=== PATIENT | female | born 1955 | race Caucasian/White ===

== ENCOUNTER 2018-03-10 08:16 | Inpatient (IN) | payer OTHER, SELFPAY ==
--- NOTE | 2018-03-01 07:41 | PCM.HP.BLA ---
History and Physical DATE OF SURGERY: 03/10/2018 SCHEDULED PROCEDURE: Left reverse total shoulder arthroplasty HISTORY OF PRESENT ILLNESS: This is a 62-year-old female whose been having ongoing pain in the left shoulder. Patient had a previous left humerus fracture on March 10, 2017 in which she underwent a surgical fixation by Dr. Leobardo Johnson. Patient is having continued pain with motion of the left shoulder. She has difficult time with activities of daily living that require anything using her hand above her shoulder. She has difficult time with hygiene and showering. Patient has been through previous formal physical therapy for 5 months. There was no complications after the surgery. She denies any repeat trauma or injury. Patient has a medical history pertinent for type 2 diabetes mellitus, sleep apnea in which she requires a CPAP, thyroid disease, asthma, and depression. Patient currently denies any chest pain, shortness of breath, fevers chills, recent infections. After failure of conservative measures and discussion with Dr. Eduardo Sorto, the patient would like to proceed with a left reverse total shoulder arthroplasty. We are obtaining surgical clearance from her primary care physician. Patient is unable to have any Steri-Strips placed due to reaction. REVIEW OF SYSTEMS: ROS: Const: Reports difficulty sleeping, but denies anorexia, anxiety, change in appetite, fever, weight change. CV: Denies chest pain, heart murmur, irregular heartbeat and peripheral vascular disease. Resp: Reports sleep apnea, but denies asthma, cough, pneumonia, shortness of breath, tuberculosis and wheezing. GI: Denies constipation, diarrhea, heartburn, nausea, rectal itching, bloody stools and vomiting. : Denies incontinence. Musculo: Reports leg swelling, but denies pain, trouble walking and weakness. Skin: Reports history of shingles, but denies Raynaud's and tattoo. Neuro: Reports numbness/tingling but denies ambulatory dysfunction, dizziness and tremor. Psych: Reports depression and stress, but denies anxiety, insomnia and mental illness. Manuel/Lymph: Denies anemia, bleeding/bruising tendency and past transfusion. Reviewed, no changes. PAST MEDICAL HISTORY: Advance Care Plan: No Advance Directives Effective Date: 03/11/2017 PMH: Medical Problems: Asthma, Depression, Diabetes, Sleep Apnea, Thyroid Disease Accidents: Fracture - RT ELBOW Surgical Hx: Appendectomy - (1987) Gallbladder - (1988) Hysterectomy - (1987) Tonsillectomy - (1965) Hernia Repair, Ovarian Cyst, Gastric Bypass LT Shoulder ORIF - (03/13/2017) [email or web address] Anesthesia Complications: None Assistive Devices: Glasses, Dentures, Contacts, Hearing Aid Reviewed, no changes. 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 Personal Habits: Cigarette Use: Never.Alcohol: Occasionally.Drug Use: Denies Use.Enjoy Exercising: Never Exercises. Reviewed, no changes. VITALS: Ht: 65 Wt: 310lb Wt k.616 BMI: 51.6 BP: 140/90 Pulse: 100 Resp: 16 T: 98.4 T: 36.9C ALLERGIES: Tetanus - Swelling In Joints Codeine - Breathing Problems Sulfa - Hives Tape/Steri Strips - Tape/Steri Strips MEDICATIONS: Fluoxetine HCL 20 mg one PO daily, Metformin HCL 500 mg 1 by mouth twice a day, Levothyroxine Sodium 125 mcg one PO daily, Glimepiride 2 mg 1 by mouth every day, Vitamin E 400 Unit 1 by mouth every day, Vitamin D 75107 Unit once a day PRE-OP EXAM: General appearance:NORMAL Other: Eyes: Conjunctivae and lids: NORMAL Pupils: ERR Ears, Nose, Mouth, and Throat: NORMAL Other: Inspection of lips, teeth and gums: NORMAL Other: Neck: Examination of neck: no masses noted. Respiratory: Assessment of respiratory effort: NORMAL Other: Auscultation of lungs: clear to auscultation no wheezes, rhonchi or rales. Cardiovascular: Auscultation of heart: regular rate and rhythm, no murmurs, gallops or rubs. Exam of carotid arteries: NORMAL Other: Gastrointestinal: Exam of abdomen: soft, nontender, nondistended bowel sounds present. PHYSICAL EXAMINATION: Left shoulder is cool to touch without erythema. Incision is well healed without any signs of infection. Range of motion left shoulder: Forward flexion 90, passive flexion 150, internal rotation L1 on the left and T10 on the right. 4/5 strength left shoulder. Sensation intact to light touch. Neurovascularly intact. IMAGING STUDIES: X-rays were obtained of the left shoulder which does reveal a well-healed humeral neck fracture with previous open reduction internal fixation. On scapular Y view the greater tuberosity is rotated posteriorly for a nonunion or malunion. These were compared to initial radiographs where the greater tuberosity was in appropriate position and a sense either resorbed or shifted. IMPRESSION: 1. Painful left shoulder with previous open reduction internal fixation 2. Type 2 diabetes mellitus 3. Depression 4. Sleep apnea with requirement for CPAP 5. Thyroid disease 6. Asthma PLAN: Dr. Eduardo Sorto did discuss and review with the patient all treatment options including surgical versus nonsurgical options. Patient does wish to proceed with the above-stated procedure. Potential risks, benefits, and complications of the procedure were discussed in detail including but not limited to , infection, nerve and blood vessel damage, persistent pain, numbness, tingling, paresthesias, blood clot, pulmonary embolism, and requirement for possible further surgery. The patient expressed full understanding and has no further questions for the doctor. Patient does agree to proceed with the above-stated procedure and has signed the surgery consent form. This dictation was created using voice recognition software. Phonetic and/or grammatical errors may exist.. ___ I have re-examined the patient. There are no clinical changes since date of exam. ___ See progress notes for changes. ___ Dictated on admission Date: Time: Signature:
[2018-03-02 14:23] VITALS: BP 151/83; PULSE 69; RESP 16; TEMP 36.1; O2SAT 95; BMI 53.1
--- NOTE | 2018-03-02 14:33 | SDCEKG_ITS ---
Test Reason : Blood Pressure : / mmHG Vent. Rate : 066 BPM Atrial Rate : 066 BPM P-R Int : 158 ms QRS Dur : 076 ms QT Int : 444 ms P-R-T Axes : 004 -01 096 degrees QTc Int : 465 ms Normal sinus rhythm Minimal voltage criteria for LVH, may be normal variant Poor R wave progression Nonspecific T wave abnormality Prolonged QT Abnormal ECG Confirmed by DERIC BOOKER, RYLEY ([id number]), order editor LENIN SANCHEZ ([id number]) on 03/04/2018 3:44:21 PM Referred By: Eduardo Sorto Confirmed By:RYLEY LEOS MD
[2018-03-02 15:10] LABS: Absolute Lymphocyte Count 2.78 X10^3/ul (0.83-4.51); Absolute Neutrophil Count 5.8 X10^3/uL (2.0-7.7); Basophil# 0.02 X10^3/uL; Basophil% 0.2 % (0-1); Eosinophil# 0.19 X10^3/uL; Hematocrit 41.3 % (37-47); Hemoglobin 14.1 g/dl (12.0-15.0); Lymphocyte # 2.78 X10^3/ul (4.0); Lymphocyte % 29.5 % (19-41); Mean Corp Hgb Conc 34.1 g/gl (32-36); Mean Corpuscular Hgb 32.4 pg (27.0-32.0); Mean Corpuscular Volume 94.9 fL (81-99); Mean Platelet Vol. 9.1 fl (6.2-12.0); Monocyte# 0.58 X10^3/uL; Monocyte% 6.2 % (0-10); Neutrophil # 5.83 X10^3/uL (2.7-7.7); Neutrophil % 61.9 % (47-70); Platelet Count 251 K/mm3 (150-450); RBC Distribution Width CV 13.6 % (11.6-14.6); RBC Distribution Width SD 45.2 fl (35.1-43.9); Red Blood Count 4.35 M/mm3 (4.2-5.4); White Blood Count 9.4 K/mm3 (4.4-11.0)
[2018-03-02 15:13] LABS: International Normalized Ratio 1.2; Partial Thromboplast Time 30.2 Seconds (24.1-36.2); Prothrombin Time (Protime)PT. 14.7 SECONDS (11.7-14.9)
[2018-03-02 15:14] LABS: POSITIVE COUNT NO; POSITIVE DIFFERENTIAL NO; POSITIVE MORPHOLOGY NO
[2018-03-02 15:38] LABS: AST(SGOT) 71 U/L (15-37); Alanine Aminotransfer ALT/SGPT 54 U/L (13-56); Albumin, Serum 3.4 g/dL (3.2-5.0); Alkaline Phosphatase 117 U/L (45-117); Anion Gap 8 (5-15); BUN 13 mg/dL (7-18); BUN/Creat Ratio 13.4 RATIO (10-20); Bilirubin, Direct 0.29 mg/dL (0.00-0.30); Calcium,Total 8.8 mg/dL (8.5-10.1); Chloride 102 mmol/L (98-107); Creatinine, Serum 0.97 mg/dL (0.55-1.02); EST Glomerular Filtration Rate 62 mL/min (>60); Est Glom Filt Rate - Afr Amer 75 mL/min (>60); Estimated Creatinine Clearance 53.26 ml/min; Globulin 4.2 g/dL (2.2-4.2); Glucose 88 mg/dL (74-106); Potassium 3.8 mmol/L (3.5-5.1); Protein, Total 7.6 g/dL (6.4-8.2); Sodium Level 138 mmol/L (136-145); Thyroid Stim Hormone (TSH) 2.49 uIU/mL (0.358-3.74)
[2018-03-10] VITALS (17 sets, daily range): BP systolic 91–146; BP diastolic 51–84; PULSE 64–113; RESP 14–18; TEMP 36.3–37.4; O2SAT 93–99; BMI 53.1
--- NOTE | 2018-03-10 | SHO_PTH ---
PATIENT: SHAUNA RANDALL LOC: [facility] U#:[id number] AGE/SX: 62/F ROOM: [facility] RE03/10/[address]: Dr. Bimal See DO : 1955 BED: 1 DIS: 03/12/2018 SPEC #: [id number] RECD: 03/10/18 15:43 STATUS: BAKARI RETimo #: [id number] WESTLEY: 03/10/18 00:[address]: Eduardo Sorto DEPT: SURGICAL PATHOLOGY RECD BY: Dalton Gavin ENTERED: 03/11/18 08:38 SP TYPE: HUMERUS OTHR DR: MD Dr. Bimal Rojas DO Dr. Kathleen Fearon, DO Dr. Steven Widmer, MD Tissues: Humerus, NOS Procedures: Decalcification bone/plaque Surgery Specimen Level IV Comments: @ Ordering doctor for DEC edited from to @ hussain VIDALES at 03/11/18 1450 @ Ordering doctor for SUIV edited from to @ by SOBEIDA at 03/11/18 145 @ Submitting doctor edited from to @ hussain VIDALES at 03/11/18 1457 HEADER OPERATION: Reverse total shoulder replacement, removal of hardware PRE-OP DIAGNOSIS: Painful left shoulder with previous open reduction internal fixation TISSUE SUBMITTED: Left humeral head MICROSCOPIC DIAGNOSIS Left humeral head, total shoulder replacement: Humeral head with reactive changes and focal area of hemorrhage, clinically history of previous open reduction and internal fixation. CHRIS:abundio 03/17/18 MICROSCOPIC DESCRIPTION Slides are reviewed. GROSS DESCRIPTION Received is one container labeled with the patient's name and designated left humeral head. The specimen consists of a humeral head measuring 5 x 4.5 x 2.5 cm. No soft tissue is identified. The articular surface shows area of erosion and osteophyte formation. Used Equipment Sales Representative sections are submitted in one cassette after decalcification. / Amadou 03/11/18 TC: 5 CPT: 44522, 86478
--- NOTE | 2018-03-10 07:20 | RAD_ITS ---
STUDY: X-RAY - LEFT SHOULDER REASON FOR EXAM: Female, 62 years old. Total arthroplasty TECHNIQUE: Single postop view of the shoulder. COMPARISON: None. FINDINGS: Total left shoulder arthroplasty appears in anatomic alignment on the single submitted image. There is hypertrophic osteoarthrosis of the acromioclavicular joint with inferior osseous spur formation. Normal acromion. There is no demonstrated pneumothorax. Postsurgical changes. RAD/Shoulder One View IMPRESSION: Total arthroplasty appears in anatomic alignment. Degenerative changes of the acromioclavicular joint. Electronically Signed: Felecia Cardona MD at 1:21 EST , Service support ,
[2018-03-10] MEDS: oxyCODONE HCl Cr 10 MG Tablet PO (08:46)
[2018-03-10] MEDS: Acetaminophen 500 MG Tablet 1000 MG PO ×2 (08:47→21:36)
[2018-03-10 09:10] LABS: Bedside Glucose 150 mg/dL (70-110)
[2018-03-10] MEDS: Lactated Ringers 1,000 ML 999 ML IV (09:12)
[2018-03-10] MEDS: Ropivacaine 0.5% 30 ML Vial (14:08)
[2018-03-10] MEDS: Ketorolac 30 MG/ML Syringe (14:08)
--- NOTE | 2018-03-10 14:20 | OP.PCM_ITS ---
Report of Operation Date of Procedure: 03/10/18 Pre-Operative Diagnosis: Post traumatic arthritis, cuff tear arthropathy left shoulder Post-Operative Diagnosis: Post traumatic arthritis, cuff tear arthropathy left shoulder. Left shoulder proximal humerus malunion Surgery/Procedure Performed:: Left reverse total shoulder replacement Description of Surgical Findings:: Stable shoulder good soft tissue tensioning animal technician: Marco A Saleh Type of Anesthesia:: General Anesthesiologist: Bimal Sosa Special Medications: 3 g Ancef, 1 g TXA at incision, 1 g TXA closure, 10 mg Decadron, joint cocktail (5 mg Duramorph, 30 mL of 0.5% Ropivicaine, 1000 units of epinephrine, 30 mg of Toradol), 1 g vancomycin throughout the case Specimen's removed: Bony cuts Estimated Blood Loss (mL): 200 ML Fluids Replaced: 2000 mL crystalloid Description of Procedure: Components used 1. Jose reunion glenoid baseplate with 28 mm screw 2. Jose reunion 32 mm Glenosphere 3. [place] reunion 32 mm, 4 mm humeral liner 4. [place] reunion reverse TSA humeral adapter tray 32, +4 mm mm 5. Jose reunion humeral stem primary press-fit 9mm size Brief history/Operative indications: 62 yo F with history of R shoulder pain and proximal humerus fracture and surgical fixation. Patient failed conservative measures as mentioned in the H&P. After discussion of risk and benefits of reverse total shoulder replacement including but not limited to blood loss, DVTs, PEs, nerve vessel damage, infection, general risk of anesthesia including loss of life, instability and stiffness patient demonstrating understanding wish to proceed was able to sign informed consent. Medical clearance was obtained. Procedure: On the date of the procedure, patient's L upper extremity was marked in the preoperative area. Patient was taken back to the operating room where they were placed on the table in the supine position. Anesthesia assumed control of the C-spine and airway, then administered anesthetic. All bony prominences were identified well-padded, the head was secured and the patient was placed in the beachchair position at about 35? inclination. Anesthesia remained in control of the C-spine airway throughout the remainder of the procedure. Patient was then appropriately fastened to the table and the L upper extremity was prepped in a sterile fashion. The surgeons then scrubbed. Upon reentering the room, the L upper extremity was draped in a sterile fashion and the incision was marked out. Timeout was called, everyone agreed upon the side, the site, the procedure to be performed, patient identity and antibiotics given. Incision was taken down through skin and subcutaneous tissue, fat down to fascia. The stripe of the deltopectoral interval and cephalic vein were identified and blunt dissection was used to retract the deltoid. The cephalic vein was retracted laterally. Clavipectoral fascia was then incised and a cobra retractor was placed in the wound. The proximal one third of the pectoralis major insertion was released. At this time we internally rotated the shoulder and were able to identify the proximal humerus plate. In order to get to this area we had to make significant scar tissue releases which took extra time. Once the plate was identified the membrane was removed from the base of the plate. The distal screws were removed using a hex head screwdriver. The proximal screws were removed using a Star Drive. Once all the screws were removed a Carrington was placed under the plate. The plate was then removed. Proximally we found the biceps tendon and followed followed the biceps tendon after transecting it into the rotator interval. The rotator interval was split and the arm was externally rotated. Based on the previous fracture and excessive scar tissue external rotation was quite difficult. Significant amount of time was spent doing appropriate releases to externally rotate the proximal humerus. The split of the subscapularis was 1 cm medial to the bicipital groove. Subscapularis tendon was released. We released down the anterior portion of the humeral head and a garcia elevator was used to release the inferior portion of the humeral head. As we gently externally rotated the arm we were able to appreciate the amount of retroversion and malunion of the fracture. There was roughly 70 degrees retroversion on the humeral head. Due to this and the excessive scar tissue we spent extra time doing these releases carefully to avoid neurovascular damage. The arm was externally rotated and the shoulder was dislocated. The [employer] humeral head cutting guide was used to make humeral cut. This was done at 20? retroversion in relation to the forearm. Once his humeral head cut was made humerus was retracted out of the way and the glenoid was exposed. After exposing the glenoid, the labrum and the remaining proximal biceps were debrided. At this time we are able to view the entire outer edge of the glenoid. A central pin was placed using the 10 degree inferior tilt guide we sequentially reamed over this central pin to 32mm. Once this was completed the central screw was measured off our initial pin. The glenoid baseplate was tightened into place. Wound was closely irrigated out with normal saline we then drilled sequentially for 2 screws. Screws were placed superiorly and inferiorly and tightened down the screws. Once the screws were appropriately tightened into place the glenoid baseplate was compressed against the exposed subchondral bone. A 32 mm, +2 mm glenosphere was impacted into place engaging the Reeder taper. Attention was then turned towards the humerus. The humerus was again externally rotated exposing the proximal portion of the humerus. Central canal finder was then used to open up the canal. We reamed to a 10mm reamer. We then broached t o a 9mm stem. We trialed the +4 mm liner, with the +4 mm humeral baseplate. We obtained an adequate reduction at this time with a nice stable shoulder. Good internal rotation to the gluteus, forward elevation to 140?, external rotation to 20?. Final components were then assembled on the back table, trials were removed and the wound was copiously irrigated with normal saline after dislocating the shoulder. Once the final components were assembled they were impacted into place. Shoulder was then reduced and found to be stable with good range of motion. Subscapularis tendon was not repairable. The wound was then copiously irrigated out with a 1 L normal saline lavage. The deltopectoral fascia was then closed using #1 Vicryl skin was closed using 2-0 Vicryl interrupted sutures and final skin closure was done with 3-0 Monocryl. Due to patient's previous reaction to Steri-Strip adhesive Dermabond was used for final skin closure. Sterile dressing was placed patient was then placed in a sling and awakened by anesthesia. Patient was then transferred to the PACU for recovery. Postoperative plan: Patient will be admitted to the hospital overnight. They will get physical therapy starting in 2 weeks with normal postoperative regimen. Patient will be placed on aspirin daily for DVT prophylaxis. The first postoperative appointment will be in 2 weeks for wound check and initiation of phase 1 physical therapy. During the course of the procedure the physician legal administrative assistant played a vital role. His intimate knowledge of my steps in the procedure aided in safe and expedient completion of the procedure. The PA played a vital rolls in positioning particularly in obtaining the appropriate beach chair position and securing the patient's body and head to the table. The PA was also vital in the retraction of soft tissues during the exposure and especially the glenoid work as this is a vital part of the procedure to prevent neurovascular damage. the PA was also vital and protecting soft tissues during times of bony cuts and reaming. He also played a vital role in closure with my direct supervision. The PA was also important during reduction and dislocation of the joint and trials intraoperatively. Grafts/Implants Used: [place] reunion reverse total shoulder replacement - Complications None - Admit VTE Documentation VTE Present on Admission: No VTE Mechan Device Prophylaxis: SCD's, Thigh High ESTER Hose VTE Pharm Prophylaxis ordered?: Yes
--- NOTE | 2018-03-10 14:59 | EKG12_ITS ---
Test Reason : ST DEPRESSION Blood Pressure : / mmHG Vent. Rate : 107 BPM Atrial Rate : 107 BPM P-R Int : 166 ms QRS Dur : 074 ms QT Int : 374 ms P-R-T Axes : 020 002 083 degrees QTc Int : [address] & T wave abnormality, consider lateral ischemia Abnormal ECG When compared with ECG of 02-MAR-2018 13:30, Vent. rate has increased BY 41 BPM Confirmed by AREN MENDEZ ([id number]), food expeditor LENIN SANCHEZ ([id number]) on 03/15/2018 2:36:29 PM Referred By: Eduardo Sorto Confirmed By:AREN MENDEZ
[2018-03-10 15:51] LABS: Bedside Glucose 183 mg/dL (70-110)
--- NOTE | 2018-03-10 17:06 | ECHOCS_ITS ---
Reason For Study: Chest pain Procedure This was a 2D Doppler, Color Flow transthoracic echocardiogram. PT SCANNED SUPINE DUE TO RECENT LT. SHOULDER SURGERY. Exam performed portable in patient room. Left Ventricle Normal size and thickness. The estimated ejection fraction is 65 %. Stage 2 diastolic dysfunction. No regional wall motion abnormalities noted. Right Ventricle Normal right ventricle. Normal systolic function. Atria Normal left atrium. Normal right atrium. Normal atrial septum. Mitral Valve The mitral valve is structurally normal. No prolapse or stenosis seen. Tricuspid Valve Normal tricuspid valve. Trivial tricuspid valve insufficiency. Right ventricular systolic pressure estimated to be 36 mmHg. Aortic Valve Normal aortic valve. Trisinus/trileaflet aortic valve. Pulmonic Valve The pulmonic valve is not well visualized. Great Vessels Normal aortic root. Normal arch. Normal inferior vena cava. Inferior vena cava collapse with sniff. Pericardium/Pleural No pericardial effusion. Medication Diluted definity 3ml given slow IV push to enhance endocardial definition. MMode/2D Measurements & Calculations LVIDd: 4.8 cm IVSd: 1.1 cm Ao root diam: 3.4 cm LVIDs: 2.9 cm LVPWd: 1.0 cm FS: 38.6 % LA dimension(2D): 3.8 cm Doppler Measurements & Calculations MV E max jostin: 117.8 cm/sec Lat Peak E' Jostin: 13.1 cm/sec Med Peak E' Jostin: 8.1 cm/sec MV A max jostin: 108.0 cm/sec E/E' lat: 9.0 E/E' med: 14.5 MV E/A: 1.1 Ao V2 max: 192.2 cm/sec LV V1 max: 138.0 cm/sec PA V2 max: 107.6 cm/sec Ao max P.8 mmHg LV V1 max P.6 mmHg TR max jostin: 278.0 cm/sec TR max P.9 mmHg Interpretation Summary The estimated ejection fraction is 65 %. Stage 2 diastolic dysfunction. Trivial tricuspid valve insufficiency. Right ventricular systolic pressure estimated to be 36 mmHg. The study was technically limited. The study was technically difficult. There is no comparison study available. Contrast injection was performed. Ordering Physician: Genesis Hicks Referring Physician: Eduardo Sorto Performed By: Isabel Sheridan RDCS
--- NOTE | 2018-03-10 17:56 | PCM.PROGNOTE ---
Subjective: Pt is a 62 year old female who denies cardiac hx, who has a hx of hypothyroidism, DMt2, depression, morbid obesity, sleep apnea, who today underwent left reverse total shoulder repair with Dr. Sorto. She had some EKG changes post op with possible ST depression and T wave changes compared to her pre-surgical EKG. A troponin was drawn was indeterminate. Cardiology was consulted. She was sent to PCU and placed on telemetry for overnight monitoring. She has never had a stress test. She is resting comfortably upright in bed NAD. She denies CP, tightness, heaviness, pressure, palpitations, SOB, nausea, back pain. She has some lightheadedness. She is mildly tachycardic in Sinus rhythm. Her mother had a hx of heart failure and TIAs, father had hx of lupus and dementia. - Physical Exam General: Alert, Oriented x3, Cooperative HEENT: Atraumatic, PERRLA, EOMI, Normocephalic Neck: Supple, No JVD, Negative Carotid Bruits Lungs: Clear to auscultation, Normal air movement Cardiovascular: Regular rate, No murmurs Abdomen: Bowel Sounds Present, Soft, Non Tender Extremities: No edema, Capillary Refill Less than 3 Seconds Skin: No rashes, No breakdown Musculoskeletal: No Tenderness to Palpation of Joints or Extremities Neurological: Cranial nerves II-XII grossly intact Psych/Mental Status: Normal Affect, Appropriate, Alert and oriented to time, place, person, mood and affect Vital Signs Temp Pulse Resp BP Pulse Ox 98.8 F 113 H 18 108/57 L 95 03/10/18 17:16 03/10/18 17:36 03/10/18 17:16 03/10/18 17:16 03/10/18 17:16 Oxygen Flow Rate (L/min) 2 Oxygen Delivery Method Room Air Weight: 309 lb 8.464 oz Body Mass Index (BMI) 53.1 Finger Stick Blood Glucose 183 Intake and Output for Last 24 Hours 03/08/18 03/09/18 03/10/18 23:59 23:59 23:59 Intake Total 1999 Balance 1999 Laboratory Tests Past 24 Hrs 03/10/18 15:21 Troponin I 0.054 H POC Glucose 03/10/18 03/10/18 15:44 08:35 POC Glucose 183 H 150 H Medical Necessity - Tobacco Use Smoking Status: Never smoker Assessment/Plan 1. EKG changes post op with indeterminate troponin - cardiology following. Asymptomatic. Repeat EKG in AM. Cycle enzymes overnight. Obtain 2d echo. Check Mag. TSH normal. Baby aspirin started. DC toradol and mobic for now. 2. Left total shoulder POD#0 - pain controlled. Care per ortho. Perioperative Vanc and Cefazolin. Nasal MRSA screen negative. Received tranexamic acid. 3. DMt2 with morbid obesity - hold metformin. Sliding scale insulin. A1C 7.0. 4. Hypothyroidism - continue synthroid - tsh normal 5. LUIS - cpap qhs DVT ppx: per ortho Thank you for the opportunity to participate in the care of this patient. This patient was seen by Walter Pillai PA-C under the supervision of Doctor Fabiola.
[2018-03-10] MEDS: Cefazolin 1 GM/50 ML BAG IV (21:32)
[2018-03-10 21:40] LABS: Bedside Glucose 164 mg/dL (70-110)
[2018-03-10] MEDS: Insulin Lispro 100 UNIT/ML INSULN.PEN SC (21:48)
[2018-03-11] VITALS (12 sets, daily range): BP systolic 112–139; BP diastolic 59–76; PULSE 82–99; RESP 14–16; TEMP 37.1–37.5; O2SAT 93–97
[2018-03-11] MEDS: Lactated Ringers 1,000 ML 125 ML IV ×2 (01:00→08:54)
[2018-03-11] MEDS: Acetaminophen 500 MG Tablet 1000 MG PO ×3 (05:44→21:03)
[2018-03-11] MEDS: Cefazolin 1 GM/50 ML BAG IV (05:44)
[2018-03-11] MEDS: Levothyroxine 112 MCG Tablet PO (05:48)
--- NOTE | 2018-03-11 05:55 | EKG12_ITS ---
Test Reason : AM Blood Pressure : / mmHG Vent. Rate : 095 BPM Atrial Rate : 095 BPM P-R Int : 180 ms QRS Dur : 070 ms QT Int : 372 ms P-R-T Axes : 048 022 088 degrees QTc Int : 467 ms Normal sinus rhythm Low voltage QRS Borderline ECG When compared with ECG of 10-MAR-2018 15:03, MANUAL COMPARISON REQUIRED, DATA IS UNCONFIRMED Confirmed by AREN MENDEZ ([id number]), writer editor LENIN SANCHEZ ([id number]) on 03/15/2018 2:57:49 PM Referred By: Eduardo Sorto Confirmed By:AREN MENDEZ
[2018-03-11 06:12] LABS: Absolute Lymphocyte Count 1.14 X10^3/ul (0.83-4.51); Absolute Neutrophil Count 8.8 X10^3/uL (2.0-7.7); Basophil# 0.01 X10^3/uL; Basophil% 0.1 % (0-1); Eosinophil# 0.15 X10^3/uL; Eosinophils% 1.4 % (0-5); Hematocrit 35.4 % (37-47); Hemoglobin 11.6 g/dl (12.0-15.0); Lymphocyte # 1.14 X10^3/ul (4.0); Lymphocyte % 10.5 % (19-41); Mean Corp Hgb Conc 32.8 g/gl (32-36); Mean Corpuscular Hgb 32.5 pg (27.0-32.0); Mean Corpuscular Volume 99.2 fL (81-99); Mean Platelet Vol. 9.5 fl (6.2-12.0); Monocyte# 0.71 X10^3/uL; Monocyte% 6.6 % (0-10); Neutrophil # 8.78 X10^3/uL (2.7-7.7); Neutrophil % 81.2 % (47-70); Platelet Count 188 K/mm3 (150-450); RBC Distribution Width SD 48.9 fl (35.1-43.9); Red Blood Count 3.57 M/mm3 (4.2-5.4); White Blood Count 10.8 K/mm3 (4.4-11.0)
[2018-03-11 06:23] LABS: Anion Gap 10 (5-15); BUN 15 mg/dL (7-18); BUN/Creat Ratio 14.9 RATIO (10-20); Calcium,Total 7.9 mg/dL (8.5-10.1); Chloride 106 mmol/L (98-107); Cholesterol 178 mg/dL (200); Creatinine, Serum 1.01 mg/dL (0.55-1.02); EST Glomerular Filtration Rate 59 mL/min (>60); Est Glom Filt Rate - Afr Amer 72 mL/min (>60); Estimated Creatinine Clearance 51.15 ml/min; Glucose 122 mg/dL (74-106); High Density Lipoprotein 27 mg/dL; Potassium 4.4 mmol/L (3.5-5.1); Sodium Level 141 mmol/L (136-145); Triglycerides 103 mg/dL; Very Low Density Lipoprotein 21 mg/dL (5-40)
[2018-03-11 06:33] LABS: POSITIVE COUNT NO; POSITIVE DIFFERENTIAL NO; POSITIVE MORPHOLOGY NO
[2018-03-11 07:46] LABS: Bedside Glucose 148 mg/dL (70-110)
[2018-03-11] MEDS: Glucerna Shake 120 ML LIQUID PO (08:52)
[2018-03-11] MEDS: Vitamin E 400 UNITS Capsule PO (08:52)
[2018-03-11] MEDS: Aspirin 325 MG Tablet PO (08:52)
[2018-03-11] MEDS: Famotidine 20 MG Tablet PO (08:52)
[2018-03-11] MEDS: FLUoxetine 20 MG Capsule PO (08:53)
--- NOTE | 2018-03-11 08:54 | CON.PCM_ITS ---
Problem List (1) Abnormal EKG Status: Acute (2) Troponin I above reference range Status: Acute Reason for Consult Date of Consultation: 03/11/18 Reason for Consultation: Abnormal EKG, indeterminate troponins History of Present Illness: The patient is a 62 year old F, morbidly obese, diabetic on oral medications, nonhypertensive, unknown cholesterol, no previous known coronary or cardi ovascular disease. Patient is a lifelong non-smoker. Apparently 1 year ago she suffered a fall fracturing her left shoulder area requiring surgery with plates and pins for corrective measures. However this did not allow her mobility of her arm, and the patient underwent a total left shoulder replacement surgery yesterday. Postoperatively I was called by anesthesia as they noted some ST segment depression on security monitor which was confirmed on EKG. Her EKG showed normal sinus rhythm with lateral ST segment depression which was previously seen on older EKGs although may have been a little more distinct. Patient was asymptomatic and normotensive at the time and when she awoke she had no complaints of chest pain. Her initial troponin was 0.05, then increase to 0.36, and now decreased to 0.28. Her EKG this morning shows normal sinus rhythm with previously documented lateral ST segment depression and T wave inversion. No ST elevation, no additional changes. On further history the patient denies any recent chest pain, angina, shortness of breath, dyspnea on exertion, change in exercise capacity or previous cardiac history. She does have a mother who had congestive heart failure diagnosed in her 50s and is subsequently . No other relatives with cardiovascular disease. Patient is currently resting comfortably, no acute distress.] Past Medical History Allergies/Adverse Reactions: Allergies adhesive tape Allergy (Verified 03/02/18 14:11) BLISTERS/SCARS codeine Allergy (Verified 03/02/18 14:11) Shortness of breath Sulfa (Sulfonamide Antibiotics) Allergy (Verified 03/02/18 14:11) Rash Tetanus Vaccines and Toxoid [Tetanus Vaccines & Toxoid] Allergy (Verified 03/02/18 14:11) Swelling meperidine HCl [From Demerol] Adverse Reaction (Verified 03/02/18 14:11) Itching STERISTRIPS Allergy (Uncoded 03/02/18 14:11) BLISTERS/SCARS Home Medications: Ambulatory Orders Medication Instructions Recorded Cholecalciferol (VIT D3) [Vitamin 10,000 unit PO DAILY 06/05/14 D3] Fluoxetine [Prozac] 20 mg PO DAILY 06/05/14 Glimepiride [Amaryl] 2 mg PO BID 06/05/14 Levothyroxine [Synthroid] 112 mcg PO DAILY 06/05/14 Metformin HCl [Glucophage] 500 mg PO DAILY 06/05/14 Vitamin E 400 unit PO DAILY 03/02/18 Smoking Status: Never smoker Review of Systems - Review of Systems General: Denies: Fever, Night Sweats, Fatigue Cardiovascular: Denies: Chest Discomfort, Shortness of Breath, Orthopnea, PND, Peripheral Edema, Palpitations, Lightheadedness, Dizziness, Near Syncope, Syncope Respiratory: Denies: Cough, Sputum Production, Hemoptysis Gastrointestinal: Denies: Hematemesis, Hematochezia, Melena Genitourinary: Denies: Dysuria, Hematuria Skin: Denies: Rash Subjectve: Patient resting comfortably, no acute distress. Shoulder harness in place. Objective: Vital Signs Temp Pulse Resp BP Pulse Ox 98.9 F 86 16 112/59 L 97 03/11/18 08:24 03/11/18 08:24 03/11/18 08:24 03/11/18 03:15 03/11/18 03:15 Oxygen Flow Rate (L/min) 2 Oxygen Delivery Method Room Air Weight: 309 lb 8.464 oz Body Mass Index (BMI) 53.1 Finger Stick Blood Glucose 183 Intake and Output for Last 24 Hours 03/09/18 03/10/18 03/11/18 23:59 23:59 23:59 Intake Total 3491 / 3491 667 / 667 Balance 3491 / 3491 667 / 667 General: Awake, Alert, Oriented x 3 HEENT: PERRL, EOMI, Sclera Non Icteric Neck: Supple, Good ROM, No Lymph Node Enlargement Lungs: Clear to auscultation Cardiovascular: Regular Rhythm, Normal S1, Normal S2, No Murmurs, No Rubs, No Gallops Vascular: No Carotid Bruits, Normal Femoral Pulses, Normal Radial Pulses, Normal Dorsalis Pedal Pulse, Normal Posterior Tibial Pulses Abdomen: Bowel Sounds Present, Soft, Non Tender, No HSM, No Organomegaly Extremities: No Cyanosis, No Clubbing, No edema Neurological: No Focal Motor or Sensory Deficit 03/10/18 15:21: Troponin I 0.054 H 03/10/18 18:30: Magnesium 2.0, Troponin I 0.365 H 03/10/18 21:14: Troponin I 0.287 H 03/11/18 05:30: WBC 10.8, RBC 3.57 L, Hgb 11.6 L, Hct 35.4 L, MCV 99.2 H, MCH 32.5 H, MCHC 32.8, RDW 14.0, RDW Differential 48.9 H, Plt Count 188, MPV 9.5, Immature Gran % (Auto) 0.200, Neut % (Auto) 81.2 H, Lymph % (Auto) 10.5 L, [place] % (Auto) 6.6, Eos % (Auto) 1.4, Baso % (Auto) 0.1, Absolute Neuts (auto) 8.8 H, Total Counted Not Reportable 03/11/18 05:30: Sodium 141, Potassium 4.4, Chloride 106, Carbon Dioxide 25.0, Anion Gap 10, BUN 15, Creatinine 1.01, Est GFR (MDRD) Af Amer 72, Est GFR (MDRD) Non-Af 59 L, BUN/Creatinine Ratio 14.9, Glucose 122 H, Calcium 7.9 L, Triglycerides 103, Cholesterol 178, LDL Cholesterol 130, VLDL Cholesterol 21, HDL Cholesterol 27 L Rhythm: EKG: As above ECHO: Pending Stress Test: Pending Cardiac Cath: PCI: CT Surgery: Holter monitor: EPS: PPM: CXR: Chest CT Scan: Assessment/Plan 1. Abnormal EKG: The patient had evidence of ST segment depression on telemetry confirmed by EKG immediately postoperatively, and was asymptomatic with prior to during and subsequent to her shoulder replacement surgery. Her initial troponin was 0.05, then increase to 0.36 and is decreased to 0.28. She has remained symptom-free since that time. I recommended the patient continue aspirin 81 mg p.o. daily after she was loaded with 4 baby aspirin yesterday, I would recommend holding off on Plavix to allow her shoulder surgery site to heal properly. Would not recommend anticoagulation at this time as she is asymptomatic and her troponins are trending downwards. I recommend the patient undergo a 2D echo with Doppler. If this is grossly abnormal for LV wall motion and normalities, she may require diagnostic coronary angiogram prior to discharge. If her LV function is normal, and her pulmonary pressures are normal, I would consider a noninvasive non-walking dobutamine echocardiogram assuming she has good echo windows to further risk stratify her. She does not appear to require any additional surgeries at this time. If her stress test is abnormal she may require diagnostic coronary angiogram prior to discharge home. 2. Hypercholesterolemia: Recommend obtaining a fasting lipid profile for further risk stratification. Given her diabetes her LDL should be less than 70. She may require statin based medications. 3. Thank you very much for the opportunity to participate in the cardiac care of your patient. Consultation time took place between 815 and 8:57 AM. Code Visit Inpatient E&M: 05635 Init Hosp L2
--- NOTE | 2018-03-11 09:47 | PCM.PN.ORT ---
Patient Problems: Active and Suspected Problems Abnormal EKG (Acute) Troponin I above reference range (Acute) Subjective: The patient was sitting in bedside chair upon examination. Patient denies any chest pain, shortness of breath, lightheadedness, nausea or vomiting, or calf pain. Patient does complain of some dizziness. Otherwise she states her left shoulder is doing very well with regards to pain. Pain is controlled on medications. No adverse overnight events. Patient did have some EKG changes during surgery and cardiology has been consulted. Cardiology is recommending echocardiogram. Depending on results we will determine continue treatment and possible diagnostic coronary artery angiogram prior to discharge home. Objective: Dressing is C/D/I Ultra-sling fitting appropriately Sensation intact to axillary, radial, median, and ulnar distribution Motor intact to AIN, PIN, and ulnar nerve - Physical Exam General: Alert, Oriented x3, Cooperative, No apparent distress Vital Signs Temp Pulse Resp BP Pulse Ox 98.9 F 92 14 115/74 93 03/11/18 09:00 03/11/18 09:00 03/11/18 09:00 03/11/18 09:00 03/11/18 09:00 Oxygen Flow Rate (L/min) 2 Oxygen Delivery Method Room Air Weight: 140.4 kg Body Mass Index (BMI) 53.1 Finger Stick Blood Glucose 183 Intake and Output for Last 24 Hours 03/09/18 03/10/18 03/11/18 23:59 23:59 23:59 Intake Total 3491 / 3491 667 / 667 Balance 3491 / 3491 667 / 667 Laboratory Tests Past 24 Hrs 03/10/18 03/10/18 03/10/18 15:21 18:30 21:14 WBC RBC Hgb Hct MCV MCH MCHC RDW RDW Differential Plt Count MPV Immature Gran % (Auto) Neut % (Auto) Lymph % (Auto) [place] % (Auto) Eos % (Auto) Baso % (Auto) Absolute Neuts (auto) Absolute Lymphs (auto) Total Counted Sodium Potassium Chloride Carbon Dioxide Anion Gap BUN Creatinine Estim Creat Clear Calc Est GFR (MDRD) Af Amer Est GFR (MDRD) Non-Af BUN/Creatinine Ratio Glucose Calcium Magnesium 2.0 Troponin I 0.054 H 0.365 H 0.287 H Triglycerides Cholesterol LDL Cholesterol VLDL Cholesterol HDL Cholesterol 03/11/18 03/11/18 05:30 05:30 WBC 10.8 RBC 3.57 L Hgb 11.6 L Hct 35.4 L MCV 99.2 H MCH 32.5 H MCHC 32.8 RDW 14.0 RDW Differential 48.9 H Plt Count 188 MPV 9.5 Immature Gran % (Auto) 0.200 Neut % (Auto) 81.2 H Lymph % (Auto) 10.5 L [place] % (Auto) 6.6 Eos % (Auto) 1.4 Baso % (Auto) 0.1 Absolute Neuts (auto) 8.8 H Absolute Lymphs (auto) 1.14 Total Counted Not Reportable Sodium 141 Potassium 4.4 Chloride 106 Carbon Dioxide 25.0 Anion Gap 10 BUN 15 Creatinine 1.01 Estim Creat Clear Calc 51.15 Est GFR (MDRD) Af Amer 72 Est GFR (MDRD) Non-Af 59 L BUN/Creatinine Ratio 14.9 Glucose 122 H Calcium 7.9 L Magnesium Troponin I Triglycerides 103 Cholesterol 178 LDL Cholesterol 130 VLDL Cholesterol 21 HDL Cholesterol 27 L POC Glucose 03/11/18 03/10/18 03/10/18 07:42 21:35 15:44 POC Glucose 148 H 164 H 183 H Medical Necessity - Tobacco Use Smoking Status: Never smoker Assessment/Plan All Active Problems Abnormal EKG (Acute) Troponin I above reference range (Acute) 1. S/P left reverse total shoulder arthroplasty POD #1 2. Continue Pain Medications: Tylenol and OxyIR 3. DVT Prophylaxis: Per cardiology, recommends 81 mg aspirin daily 4. PT/OT: Continue with UltraSling, no range of motion of left shoulder. Okay to work on pendulum exercise and left elbow/wrist/hand range of motion. We will not begin formal physical therapy until after 2-week follow-up at [facility]. 5. H & H: 11.6/35.4, asymptomatic 6. Encouraged Incentive Spirometry 7. Continue postoperative medical management per medicine 8. Cardiology consult: Plan is for echocardiogram and further treatment will be determined from results. 9. Disposition: Overall patient is doing weight very well with regards to her left shoulder. Plan will be for discharge home once patient is medically stable.
[2018-03-11 11:11] LABS: Bedside Glucose 143 mg/dL (70-110)
--- NOTE | 2018-03-11 11:12 | PCM.PROGNOTE ---
<Evelyne Castro - Last Filed: 03/11/18 11:19> Patient Problems: Active and Suspected Problems Abnormal EKG (Acute) Troponin I above reference range (Acute) Subjective: Patient seen and examined. Denies chest pain, shortness of breath. Denies significant left shoulder pain. Denies dizziness, lightheadedness. - Physical Exam General: Alert, Oriented x3, Cooperative HEENT: Atraumatic, PERRLA, EOMI, Normocephalic Neck: Supple, No JVD, Negative Carotid Bruits Lungs: Clear to auscultation, Normal air movement Cardiovascular: Regular rate, Regular Rhythm, Normal S1, Normal S2, No murmurs Abdomen: Bowel Sounds Present, Soft, Non Tender, Non-Distended, Obese Extremities: No clubbing, No cyanosis, No edema, Capillary Refill Less than 3 Seconds Skin: No rashes, No breakdown Musculoskeletal: No Tenderness to Palpation of Joints or Extremities, - - Left arm in sling, status post left total shoulder repair Neurological: Cranial nerves II-XII grossly intact, Neuro grossly intact Psych/Mental Status: Normal Affect, Appropriate Vital Signs Temp Pulse Resp BP Pulse Ox 98.9 F 92 14 115/74 93 03/11/18 09:00 03/11/18 09:00 03/11/18 09:00 03/11/18 09:00 03/11/18 09:00 Oxygen Flow Rate (L/min) 2 Oxygen Delivery Method Room Air Weight: 309 lb 8.464 oz Body Mass Index (BMI) 53.1 Finger Stick Blood Glucose 183 Intake and Output for Last 24 Hours 03/09/18 03/10/18 03/11/18 23:59 23:59 23:59 Intake Total 3491 / 3491 667 / 667 Balance 3491 / 3491 667 / 667 Laboratory Tests Past 24 Hrs 03/10/18 03/10/18 03/10/18 15:21 18:30 21:14 WBC RBC Hgb Hct MCV MCH MCHC RDW RDW Differential Plt Count MPV Immature Gran % (Auto) Neut % (Auto) Lymph % (Auto) [place] % (Auto) Eos % (Auto) Baso % (Auto) Absolute Neuts (auto) Absolute Lymphs (auto) Total Counted Sodium Potassium Chloride Carbon Dioxide Anion Gap BUN Creatinine Estim Creat Clear Calc Est GFR (MDRD) Af Amer Est GFR (MDRD) Non-Af BUN/Creatinine Ratio Glucose Calcium Magnesium 2.0 Troponin I 0.054 H 0.365 H 0.287 H Triglycerides Cholesterol LDL Cholesterol VLDL Cholesterol HDL Cholesterol 03/11/18 03/11/18 05:30 05:30 WBC 10.8 RBC 3.57 L Hgb 11.6 L Hct 35.4 L MCV 99.2 H MCH 32.5 H MCHC 32.8 RDW 14.0 RDW Differential 48.9 H Plt Count 188 MPV 9.5 Immature Gran % (Auto) 0.200 Neut % (Auto) 81.2 H Lymph % (Auto) 10.5 L [place] % (Auto) 6.6 Eos % (Auto) 1.4 Baso % (Auto) 0.1 Absolute Neuts (auto) 8.8 H Absolute Lymphs (auto) 1.14 Total Counted Not Reportable Sodium 141 Potassium 4.4 Chloride 106 Carbon Dioxide 25.0 Anion Gap 10 BUN 15 Creatinine 1.01 Estim Creat Clear Calc 51.15 Est GFR (MDRD) Af Amer 72 Est GFR (MDRD) Non-Af 59 L BUN/Creatinine Ratio 14.9 Glucose 122 H Calcium 7.9 L Magnesium Troponin I Triglycerides 103 Cholesterol 178 LDL Cholesterol 130 VLDL Cholesterol 21 HDL Cholesterol 27 L POC Glucose 03/11/18 03/11/18 03/10/18 10:55 07:42 21:35 POC Glucose 143 H 148 H 164 H 03/10/18 15:44 POC Glucose 183 H Medical Necessity - Tobacco Use Smoking Status: Never smoker Assessment/Plan All Active Problems Abnormal EKG (Acute) Troponin I above reference range (Acute) 1. Postoperative EKG changes, elevated troponin-cardiology following. EKG postoperatively with ST segment depression. Patient denies cardiac symptoms. Troponin 0.05, 0.36, 0.28. Patient to undergo echocardiogram. She will continue aspirin, statin. Further recommendations per cardiology. 2. Left total shoulder repair, postop day 1-PT/OT. PRN pain regimen. Further care per ortho. 3. Type 2 diabetes [id number] before meals at bedtime with sliding scale insulin. 4. Hypothyroidism-continue Synthroid. 5. Obstructive sleep apnea-CPAP nightly. 6. Morbid obesity-encourage diet lifestyle modifications. 7. Depression-continue Prozac regimen. DVT prophylaxis-aspirin 325 mg per ortho Discharge planning: Per ortho. Hospitalist service will sign off at this time given cardiology management and ortho primary service. This patient was seen by ANIL Morales under the supervision of Dr. See. <Bimal See - Last Filed: 03/11/18 11:45> Subjective: States her left shoulder is feeling well. - Physical Exam General: Alert, Cooperative HEENT: Atraumatic, Normocephalic Lungs: Clear to auscultation, Normal air movement, No wheeze Cardiovascular: Regular rate, Regular Rhythm, Normal S1, Normal S2 Abdomen: Bowel Sounds Present, Soft, Non Tender, Non-Distended, Obese Extremities: No edema, No Calf Tenderness Musculoskeletal: - Psych/Mental Status: Normal Affect, Appropriate Vital Signs Temp Pulse Resp BP Pulse Ox 37.2 C 82 14 115/74 93 03/11/18 09:00 03/11/18 11:00 03/11/18 09:00 03/11/18 09:00 03/11/18 09:00 Oxygen Flow Rate (L/min) 2 Oxygen Delivery Method Room Air Weight: 140.4 kg Body Mass Index (BMI) 53.1 Finger Stick Blood Glucose 183 Intake and Output for Last 24 Hours 03/09/18 03/10/18 03/11/18 23:59 23:59 23:59 Intake Total 3491 / 3491 667 / 667 Balance 3491 / 3491 667 / 667 Laboratory Tests Past 24 Hrs 03/10/18 03/10/18 03/10/18 15:21 18:30 21:14 WBC RBC Hgb Hct MCV MCH MCHC RDW RDW Differential Plt Count MPV Immature Gran % (Auto) Neut % (Auto) Lymph % (Auto) [place] % (Auto) Eos % (Auto) Baso % (Auto) Absolute Neuts (auto) Absolute Lymphs (auto) Total Counted Sodium Potassium Chloride Carbon Dioxide Anion Gap BUN Creatinine Estim Creat Clear Calc Est GFR (MDRD) Af Amer Est GFR (MDRD) Non-Af BUN/Creatinine Ratio Glucose Calcium Magnesium 2.0 Troponin I 0.054 H 0.365 H 0.287 H Triglycerides Cholesterol LDL Cholesterol VLDL Cholesterol HDL Cholesterol 03/11/18 03/11/18 05:30 05:30 WBC 10.8 RBC 3.57 L Hgb 11.6 L Hct 35.4 L MCV 99.2 H MCH 32.5 H MCHC 32.8 RDW 14.0 RDW Differential 48.9 H Plt Count 188 MPV 9.5 Immature Gran % (Auto) 0.200 Neut % (Auto) 81.2 H Lymph % (Auto) 10.5 L [place] % (Auto) 6.6 Eos % (Auto) 1.4 Baso % (Auto) 0.1 Absolute Neuts (auto) 8.8 H Absolute Lymphs (auto) 1.14 Total Counted Not Reportable Sodium 141 Potassium 4.4 Chloride 106 Carbon Dioxide 25.0 Anion Gap 10 BUN 15 Creatinine 1.01 Estim Creat Clear Calc 51.15 Est GFR (MDRD) Af Amer 72 Est GFR (MDRD) Non-Af 59 L BUN/Creatinine Ratio 14.9 Glucose 122 H Calcium 7.9 L Magnesium Troponin I Triglycerides 103 Cholesterol 178 LDL Cholesterol 130 VLDL Cholesterol 21 HDL Cholesterol 27 L POC Glucose 03/11/18 03/11/18 03/10/18 10:55 07:42 21:35 POC Glucose 143 H 148 H 164 H 03/10/18 15:44 POC Glucose 183 H Assessment/Plan Patient seen and examined independently. Data reviewed. I agree with the above note by the nurse practitioner. 1. Non-STEMI Likely a type II event Echo ordered Troponins peaked as high as 0.365 On aspirin and 40 mg of atorvastatin Management per cardiology 2. Diabetes mellitus type 2 Fair control Resume her home insulin and metformin upon discharge Medical service will sign off. Active medical issues are being handled by cardiology. If new issues do arise please do not hesitate to contact the hospitalist service. Code Visit Inpatient E&M: 18444 Subs Hosp L2
--- NOTE | 2018-03-11 11:19 | PN_ITS ---
<Evelyne Castro - Last Filed: 03/11/18 11:19> Patient Problems: Active and Suspected Problems Abnormal EKG (Acute) Troponin I above reference range (Acute) Subjective: Patient seen and examined. Denies chest pain, shortness of breath. Denies significant left shoulder pain. Denies dizziness, lightheadedness. - Physical Exam General: Alert, Oriented x3, Cooperative HEENT: Atraumatic, PERRLA, EOMI, Normocephalic Neck: Supple, No JVD, Negative Carotid Bruits Lungs: Clear to auscultation, Normal air movement Cardiovascular: Regular rate, Regular Rhythm, Normal S1, Normal S2, No murmurs Abdomen: Bowel Sounds Present, Soft, Non Tender, Non-Distended, Obese Extremities: No clubbing, No cyanosis, No edema, Capillary Refill Less than 3 Seconds Skin: No rashes, No breakdown Musculoskeletal: No Tenderness to Palpation of Joints or Extremities, - - Left arm in sling, status post left total shoulder repair Neurological: Cranial nerves II-XII grossly intact, Neuro grossly intact Psych/Mental Status: Normal Affect, Appropriate Vital Signs Temp Pulse Resp BP Pulse Ox 98.9 F 92 14 115/74 93 03/11/18 09:00 03/11/18 09:00 03/11/18 09:00 03/11/18 09:00 03/11/18 09:00 Oxygen Flow Rate (L/min) 2 Oxygen Delivery Method Room Air Weight: 309 lb 8.464 oz Body Mass Index (BMI) 53.1 Finger Stick Blood Glucose 183 Intake and Output for Last 24 Hours 03/09/18 03/10/18 03/11/18 23:59 23:59 23:59 Intake Total 3491 / 3491 667 / 667 Balance 3491 / 3491 667 / 667 Laboratory Tests Past 24 Hrs 03/10/18 03/10/18 03/10/18 15:21 18:30 21:14 WBC RBC Hgb Hct MCV MCH MCHC RDW RDW Differential Plt Count MPV Immature Gran % (Auto) Neut % (Auto) Lymph % (Auto) Garden % (Auto) Eos % (Auto) Baso % (Auto) Absolute Neuts (auto) Absolute Lymphs (auto) Total Counted Sodium Potassium Chloride Carbon Dioxide Anion Gap BUN Creatinine Estim Creat Clear Calc Est GFR (MDRD) Af Amer Est GFR (MDRD) Non-Af BUN/Creatinine Ratio Glucose Calcium Magnesium 2.0 Troponin I 0.054 H 0.365 H 0.287 H Triglycerides Cholesterol LDL Cholesterol VLDL Cholesterol HDL Cholesterol 03/11/18 03/11/18 05:30 05:30 WBC 10.8 RBC 3.57 L Hgb 11.6 L Hct 35.4 L MCV 99.2 H MCH 32.5 H MCHC 32.8 RDW 14.0 RDW Differential 48.9 H Plt Count 188 MPV 9.5 Immature Gran % (Auto) 0.200 Neut % (Auto) 81.2 H Lymph % (Auto) 10.5 L Garden % (Auto) 6.6 Eos % (Auto) 1.4 Baso % (Auto) 0.1 Absolute Neuts (auto) 8.8 H Absolute Lymphs (auto) 1.14 Total Counted Not Reportable Sodium 141 Potassium 4.4 Chloride 106 Carbon Dioxide 25.0 Anion Gap 10 BUN 15 Creatinine 1.01 Estim Creat Clear Calc 51.15 Est GFR (MDRD) Af Amer 72 Est GFR (MDRD) Non-Af 59 L BUN/Creatinine Ratio 14.9 Glucose 122 H Calcium 7.9 L Magnesium Troponin I Triglycerides 103 Cholesterol 178 LDL Cholesterol 130 VLDL Cholesterol 21 HDL Cholesterol 27 L POC Glucose 03/11/18 03/11/18 03/10/18 10:55 07:42 21:35 POC Glucose 143 H 148 H 164 H 03/10/18 15:44 POC Glucose 183 H Medical Necessity - Tobacco Use Smoking Status: Never smoker Assessment/Plan All Active Problems Abnormal EKG (Acute) Troponin I above reference range (Acute) 1. Postoperative EKG changes, elevated troponin-cardiology following. EKG postoperatively with ST segment depression. Patient denies cardiac symptoms. Troponin 0.05, 0.36, 0.28. Patient to undergo echocardiogram. She will continue aspirin, statin. Further recommendations per cardiology. 2. Left total shoulder repair, postop day 1-PT/OT. PRN pain regimen. Further care per ortho. 3. Type 2 diabetes [id number] before meals at bedtime with sliding scale insulin. 4. Hypothyroidism-continue Synthroid. 5. Obstructive sleep apnea-CPAP nightly. 6. Morbid obesity-encourage diet lifestyle modifications. 7. Depression-continue Prozac regimen. DVT prophylaxis-aspirin 325 mg per ortho Discharge planning: Per ortho. Hospitalist service will sign off at this time given cardiology management and ortho primary service. This patient was seen by ANIL Morales under the supervision of Dr. See. <Bimal See - Last Filed: 03/11/18 11:45> Subjective: States her left shoulder is feeling well. - Physical Exam General: Alert, Cooperative HEENT: Atraumatic, Normocephalic Lungs: Clear to auscultation, Normal air movement, No wheeze Cardiovascular: Regular rate, Regular Rhythm, Normal S1, Normal S2 Abdomen: Bowel Sounds Present, Soft, Non Tender, Non-Distended, Obese Extremities: No edema, No Calf Tenderness Musculoskeletal: - Psych/Mental Status: Normal Affect, Appropriate Vital Signs Temp Pulse Resp BP Pulse Ox 37.2 C 82 14 115/74 93 03/11/18 09:00 03/11/18 11:00 03/11/18 09:00 03/11/18 09:00 03/11/18 09:00 Oxygen Flow Rate (L/min) 2 Oxygen Delivery Method Room Air Weight: 140.4 kg Body Mass Index (BMI) 53.1 Finger Stick Blood Glucose 183 Intake and Output for Last 24 Hours 03/09/18 03/10/18 03/11/18 23:59 23:59 23:59 Intake Total 3491 / 3491 667 / 667 Balance 3491 / 3491 667 / 667 Laboratory Tests Past 24 Hrs 03/10/18 03/10/18 03/10/18 15:21 18:30 21:14 WBC RBC Hgb Hct MCV MCH MCHC RDW RDW Differential Plt Count MPV Immature Gran % (Auto) Neut % (Auto) Lymph % (Auto) Garden % (Auto) Eos % (Auto) Baso % (Auto) Absolute Neuts (auto) Absolute Lymphs (auto) Total Counted Sodium Potassium Chloride Carbon Dioxide Anion Gap BUN Creatinine Estim Creat Clear Calc Est GFR (MDRD) Af Amer Est GFR (MDRD) Non-Af BUN/Creatinine Ratio Glucose Calcium Magnesium 2.0 Troponin I 0.054 H 0.365 H 0.287 H Triglycerides Cholesterol LDL Cholesterol VLDL Cholesterol HDL Cholesterol 03/11/18 03/11/18 05:30 05:30 WBC 10.8 RBC 3.57 L Hgb 11.6 L Hct 35.4 L MCV 99.2 H MCH 32.5 H MCHC 32.8 RDW 14.0 RDW Differential 48.9 H Plt Count 188 MPV 9.5 Immature Gran % (Auto) 0.200 Neut % (Auto) 81.2 H Lymph % (Auto) 10.5 L Garden % (Auto) 6.6 Eos % (Auto) 1.4 Baso % (Auto) 0.1 Absolute Neuts (auto) 8.8 H Absolute Lymphs (auto) 1.14 Total Counted Not Reportable Sodium 141 Potassium 4.4 Chloride 106 Carbon Dioxide 25.0 Anion Gap 10 BUN 15 Creatinine 1.01 Estim Creat Clear Calc 51.15 Est GFR (MDRD) Af Amer 72 Est GFR (MDRD) Non-Af 59 L BUN/Creatinine Ratio 14.9 Glucose 122 H Calcium 7.9 L Magnesium Troponin I Triglycerides 103 Cholesterol 178 LDL Cholesterol 130 VLDL Cholesterol 21 HDL Cholesterol 27 L POC Glucose 03/11/18 03/11/18 03/10/18 10:55 07:42 21:35 POC Glucose 143 H 148 H 164 H 03/10/18 15:44 POC Glucose 183 H Assessment/Plan Patient seen and examined independently. Data reviewed. I agree with the above note by the nurse practitioner. 1. Non-STEMI * Likely a type II event * Echo ordered * Troponins peaked as high as 0.365 * On aspirin and 40 mg of atorvastatin * Management per cardiology 2. Diabetes mellitus type 2 * Fair control * Resume her home insulin and metformin upon discharge Medical service will sign off. Active medical issues are being handled by cardiology. If new issues do arise please do not hesitate to contact the hospitalist service. Code Visit Inpatient E&M: 30631 Subs Hosp L2
--- NOTE | 2018-03-11 13:22 | CASEMGMT ---
ASH ALFREDO assessment: Face to Face with patient for initial transition planning/care coordination assessment. ASH ALFREDO introduced self and role at [facility], pt voices understanding and consents to assessment at this time. Pt is sitting up in bed in no distress at this time. Pt is A/Ox4 at this time and answers all questions appropriately at this time. Care providers, pharmacy, and demographics verified at this time. PCP: Michelle Specialists: Macario Lindsay Pharmacy: [facility] Insurance: [employer] Prescription Benefit: [employer] Living Will/HPOA: Pt states does not have LW/HPOA and declines info at this time. LNOK: Zachary Sevilla, Living Arrangements: Pt states lives with , and two teenage children in 1 story home and states no concerns at home at this time. Pt states that spouse and children with ADL's until she is able to complete on her own. Transportation: Pt states /children will be driving her for the next 6 weeks or so and states no transportation concerns at this time. DME/HHC: Pt states cpap and it is currently through [facility]. Pt states that she has received the letter from [facility] regarding closure and that she is working on getting it transferred and states no need for help with this at this time. Pt states no hx of HHC or SNF in the past. Pt states no concerns with going home at time of discharge. Pt states does not smoke or drink ETOH. Pt states no further concerns/needs at this time. CM to follow for any further discharge planning/needs. Advised pt to ask for CM if any further questions/concerns/needs arise, voices understanding. Plan: [place] ASH ALFREDO
--- NOTE | 2018-03-11 14:36 | NURSING ---
Student nurse charting reviewed and appropriate.
[2018-03-11] MEDS: Insulin Lispro 100 UNIT/ML INSULN.PEN SC ×2 (16:26→21:08)
[2018-03-11] MEDS: oxyCODONE 5 MG Tablet PO (16:28)
[2018-03-11 16:31] LABS: Bedside Glucose 172 mg/dL (70-110)
[2018-03-11] MEDS: Atorvastatin Calcium 40 MG Tablet PO (21:07)
[2018-03-11 21:26] LABS: Bedside Glucose 166 mg/dL (70-110)
[2018-03-12 03:00] VITALS: PULSE 80
[2018-03-12 03:18] VITALS: BP 122/71; PULSE 71; RESP 18; TEMP 36.8; O2SAT 94
[2018-03-12 03:35] VITALS: RESP 18
[2018-03-12] MEDS: Levothyroxine 112 MCG Tablet PO (05:40)
[2018-03-12] MEDS: Acetaminophen 500 MG Tablet 1000 MG PO (05:40)
[2018-03-12 07:00] VITALS: PULSE 84
[2018-03-12 07:01] LABS: Bedside Glucose 131 mg/dL (70-110)
--- NOTE | 2018-03-12 07:03 | PCM.PN.ORT ---
Patient Problems: Active and Suspected Problems Abnormal EKG (Acute) Troponin I above reference range (Acute) Subjective: The patient was sitting in bed upon examination. Patient denies any chest pain, shortness of breath, dizziness, lightheadedness, nausea or vomiting, or calf pain. Pain is controlled on medications. No adverse overnight events. Overall patient is doing very well with regards to her left shoulder. Patient underwent an echocardiogram yesterday. Nursing states cardiology instructed the echocardiogram looked well and patient can be discharged at our discretion. Objective: Dressing is C/D/I Ultra-sling fitting appropriately Sensation intact to axillary, radial, median, and ulnar distribution Motor intact to AIN, PIN, and ulnar nerve - Physical Exam General: Alert, Oriented x3, Cooperative, No apparent distress Vital Signs Temp Pulse Resp BP Pulse Ox 98.3 F 71 18 122/71 H 94 03/12/18 03:18 03/12/18 03:18 03/12/18 03:35 03/12/18 03:18 03/12/18 03:18 Oxygen Flow Rate (L/min) 2 Oxygen Delivery Method CPAP Weight: 140.4 kg Body Mass Index (BMI) 53.1 Finger Stick Blood Glucose 183 Intake and Output for Last 24 Hours 03/10/18 03/11/18 03/12/18 23:59 23:59 23:59 Intake Total 3491 / 3491 3286 / 3286 200 / 200 Balance 3491 / 3491 3286 / 3286 200 / 200 POC Glucose 03/12/18 03/11/18 03/11/18 06:49 21:08 16:24 POC Glucose 131 H 166 H 172 H 03/11/18 03/11/18 10:55 07:42 POC Glucose 143 H 148 H Medical Necessity - Tobacco Use Smoking Status: Never smoker Assessment/Plan All Active Problems Abnormal EKG (Acute) Troponin I above reference range (Acute) 1. S/P left reverse total shoulder arthroplasty POD #2 2. Continue Pain Medications: Tylenol and OxyIR 3. DVT Prophylaxis: Per cardiology, recommends 81 mg aspirin daily. Patient currently on regular dose 325 mg aspirin for 2 weeks postoperatively. We will have patient then go to an 81 mg aspirin daily until directions from cardiology. 4. PT/OT: Continue with UltraSling, no range of motion of left shoulder. Okay to work on pendulum exercise and left elbow/wrist/hand range of motion. We will not begin formal physical therapy until after 2-week follow-up at [facility]. 5. H & H: On 03/11/18 lab work was 11.6/35.4, asymptomatic 6. Encouraged Incentive Spirometry 7. Medicine has signed off on patient. 8. Cardiology consult: Echocardiogram was performed. Cardiology has given okay for patient to be discharged. Patient will follow-up with cardiology in the next 2 weeks for outpatient care. 9. Disposition: Overall patient is doing very well with regards to her left shoulder. Plan will be for discharge home today. Prescriptions are attached to chart. Patient will follow-up per postop instructions.
--- NOTE | 2018-03-12 07:15 | DCINST_ITS ---
Discharge Diet: No Restrictions Discharge Activity: May Not Drive May shower in (days): 1 - Turned dressing away from water Ice area for (Minutes): 20 - Ice area for 20 minutes each hour while awake Weight Bearing Status: No weight bearing - Left upper extremity Keep extremity elevated above heart level: Operative Extremity Call your doctor if your incision/area has: Continuous Slow Oozing, Sudden Increased Bleeding, Increased Pain/ Swelling, Increased Redness, Foul Smelling Discharge Call your doctor if you observe: Fever of 101 or Higher, Coldness, Increased Pain, Numbness or Tingling, Change in Color Remove Dressing in (days):: 3 - Okay to remove dressing on March 15, 2018 Additional Instructions: Follow [facility] postop instructions Allergies/Adverse Reactions: Allergies adhesive tape Allergy (Verified 03/02/18 14:11) BLISTERS/SCARS codeine Allergy (Verified 03/02/18 14:11) Shortness of breath Sulfa (Sulfonamide Antibiotics) Allergy (Verified 03/02/18 14:11) Rash Tetanus Vaccines and Toxoid [Tetanus Vaccines & Toxoid] Allergy (Verified 03/02/18 14:11) Swelling meperidine HCl [From Demerol] Adverse Reaction (Verified 03/02/18 14:11) Itching STERISTRIPS Allergy (Uncoded 03/02/18 14:11) BLISTERS/SCARS Medications to take at Discharge Cholecalciferol (VIT D3) [Vitamin D3] 10,000 unit PO DAILY 06/05/14 Fluoxetine [Prozac] 20 mg PO DAILY 06/05/14 Glimepiride [Amaryl] 2 mg PO BID 06/05/14 Levothyroxine [Synthroid] 112 mcg PO DAILY 06/05/14 Metformin HCl [Glucophage] 500 mg PO DAILY 06/05/14 Vitamin E 400 unit PO DAILY 03/02/18 Acetaminophen [Tylenol] 1,000 mg PO Q8 #90 tab 03/12/18 Aspirin 325 mg PO DAILY@0800 #14 tab 03/12/18 Famotidine [Pepcid] 20 mg PO DAILY #14 tab 03/12/18 Oxycodone [Oxyir] 5 - 10 mg PO Q4H PRN PRN 4 Days #45 tab 03/12/18 Senna/Docusate Sodium [Senokot-S] 2 tab PO BID PRN PRN #20 tab 03/12/18 The following prescriptions were given: Oxycodone [Oxyir] 5 - 10 mg PO Q4H PRN PRN 4 Days #45 tab PRN Reason: Pain Acetaminophen [Tylenol] 1,000 mg PO Q8 #90 tab Aspirin 325 mg PO DAILY@0800 #14 tab Famotidine [Pepcid] 20 mg PO DAILY #14 tab Senna/Docusate Sodium [Senokot-S] 2 tab PO BID PRN PRN #20 tab PRN Reason: Constipation Primary Care Physician: Diana Martinez DO [Primary Care Provider] - Test Results: Test results from this visit will be discussed in further detail at your follow- up appointment, if applicable. Please Follow Up With: Marco A Saleh PA-C When: 03/22/18 @ 3:00 pm Please Follow Up With: Physical Therapy When: 03/22/18 Please Follow Up With: Chidi Taylor MD When: schedule 2 week follow up with Cardiology
== END 2018-03-12 08:41 | disposition home or self-care (01) | DRG 483 ==
LOC: MS3 08:18 → PCU 16:50
PROVIDERS: Anesthesiology; Family Medicine; Admitting Provider Specialist; Family Provider Internal Medicine; PCP Internal Medicine; Referring Provider Specialist
PROC: 0RRK00Z Replacement of Left Shoulder Joint with Reverse Ball and Socket Synthetic Substitute, Open Approach (ICD-10-PCS; CPT 23472; principal; 2018-03-10 09:45)
DX: M19.112 Post-traumatic osteoarthritis, left shoulder (principal); I21.A1 Myocardial infarction type 2; Z68.43 Body mass index [BMI] 50.0-59.9, adult; S42.212P Unspecified displaced fracture of surgical neck of left humerus, subsequent encounter for fracture with malunion; M75.102 Unspecified rotator cuff tear or rupture of left shoulder, not specified as traumatic; J45.909 Unspecified asthma, uncomplicated; E66.01 Morbid (severe) obesity due to excess calories; Z98.84 Bariatric surgery status; E03.9 Hypothyroidism, unspecified; W19.XXXD Unspecified fall, subsequent encounter; G47.33 Obstructive sleep apnea (adult) (pediatric); E11.9 Type 2 diabetes mellitus without complications; F32.9 Major depressive disorder, single episode, unspecified; Z79.84 Long term (current) use of oral hypoglycemic drugs
CPT/HCPCS: 36415; 73020; 80048; 80061; 80076; 82962; 83036; 83735; 84443; 84484; 85025; 85610; 85730; 87081; 88305; 88311; 93005; 93306; 97165; C1776; J7040; J7120; Q9957; A4216; C8929; J2405

== ENCOUNTER → 2018-04-07 11:13 | Outpatient (CLI) | payer OTHER, SELFPAY ==
[2018-04-02 11:29] VITALS: BMI 53.1
[2018-04-07 11:34] LABS: Absolute Lymphocyte Count 2.03 X10^3/ul (0.83-4.51); Absolute Neutrophil Count 6.1 X10^3/uL (2.0-7.7); Basophil# 0.03 X10^3/uL; Basophil% 0.3 % (0-1); Eosinophil# 0.92 X10^3/uL; Eosinophils% 9.5 % (0-5); Hematocrit 39.3 % (37-47); Hemoglobin 12.8 g/dl (12.0-15.0); Lymphocyte # 2.03 X10^3/ul (4.0); Lymphocyte % 20.9 % (19-41); Mean Corp Hgb Conc 32.6 g/gl (32-36); Mean Corpuscular Hgb 31.7 pg (27.0-32.0); Mean Corpuscular Volume 97.3 fL (81-99); Monocyte# 0.61 X10^3/uL; Monocyte% 6.3 % (0-10); Neutrophil # 6.12 X10^3/uL (2.7-7.7); Neutrophil % 62.8 % (47-70); POSITIVE COUNT NO; POSITIVE DIFFERENTIAL NO; POSITIVE MORPHOLOGY NO; Platelet Count 256 K/mm3 (150-450); RBC Distribution Width CV 13.7 % (11.6-14.6); RBC Distribution Width SD 46.2 fl (35.1-43.9); Red Blood Count 4.04 M/mm3 (4.2-5.4); White Blood Count 9.7 K/mm3 (4.4-11.0)
[2018-04-07 11:40] LABS: Erythrocyte Sedimentation Rate 25 mm/hr (0-30)
== END ==
PROVIDERS: Family Provider Internal Medicine; PCP Internal Medicine; Referring Provider Physician Assistant Surgical; Visit Provider Physician Assistant Surgical
DX: M19.112 Post-traumatic osteoarthritis, left shoulder (principal); Z96.611 Presence of right artificial shoulder joint; Z47.1 Aftercare following joint replacement surgery
CPT/HCPCS: 36415; 85025; 85652; 86140

== ENCOUNTER → 2018-06-03 15:29 | Outpatient (CLI) | payer OTHER, SELFPAY ==
[2018-04-02 11:29] VITALS: BMI 53.1
[2018-06-03 17:11] LABS: Absolute Lymphocyte Count 2.22 X10^3/ul (0.83-4.51); Absolute Neutrophil Count 2.5 X10^3/uL (2.0-7.7); Basophil# 0.02 X10^3/uL; Basophil% 0.4 % (0-1); Eosinophil# 0.14 X10^3/uL; Eosinophils% 2.6 % (0-5); Hematocrit 40.3 % (37-47); Hemoglobin 12.9 g/dl (12.0-15.0); Lymphocyte # 2.22 X10^3/ul (4.0); Lymphocyte % 41.8 % (19-41); Mean Corpuscular Hgb 30.4 pg (27.0-32.0); Mean Platelet Vol. 9.4 fl (6.2-12.0); Monocyte# 0.47 X10^3/uL; Monocyte% 8.9 % (0-10); Neutrophil # 2.45 X10^3/uL (2.7-7.7); Neutrophil % 46.1 % (47-70); Platelet Count 215 K/mm3 (150-450); RBC Distribution Width CV 13.3 % (11.6-14.6); RBC Distribution Width SD 46.1 fl (35.1-43.9); Red Blood Count 4.24 M/mm3 (4.2-5.4); White Blood Count 5.3 K/mm3 (4.4-11.0)
[2018-06-03 17:14] LABS: POSITIVE COUNT NO; POSITIVE DIFFERENTIAL NO; POSITIVE MORPHOLOGY NO
[2018-06-03 17:20] LABS: Erythrocyte Sedimentation Rate 46 mm/hr (0-30)
== END ==
PROVIDERS: Family Provider Internal Medicine; PCP Internal Medicine; Referring Provider Specialist; Visit Provider Specialist
DX: Z96.612 Presence of left artificial shoulder joint (principal)
CPT/HCPCS: 36415; 85025; 85652; 86140

== ENCOUNTER → 2018-06-07 08:39 | Outpatient (CLI) | payer OTHER, SELFPAY ==
[2018-04-02 11:29] VITALS: BMI 53.1
[2018-06-07 10:34] LABS: Body Fluid Mononuclear WBC # 2.923 10^3/uL
[2018-06-07 10:35] LABS: Body Fluid Mononuclear WBC % 5.5 %; Body Fluid Polynuclear WBC % 94.5 %
[2018-06-07 11:18] LABS: Auto B Fluid Analyzer BKGD Ct COUNTS W/IN LIMITS (W/IN LIMITS)
[2018-06-07 11:19] LABS: Appearance/Body Fluid CLOUDY; Color/Body Fluid RED; Source- Body Fluid OTHER
[2018-06-07 11:23] LABS: Body Fluid QC Type(s) BF1Q; Lymphocytes 5 %; Monocytes 2 %; Neutrophil (Segs) 93 %
[2018-06-08 14:48] LABS: Pathologist Comment/Body Fluid Reviewed
== END ==
PROVIDERS: Family Provider Internal Medicine; PCP Internal Medicine; Referring Provider Specialist; Visit Provider Specialist
DX: Z96.612 Presence of left artificial shoulder joint (principal)
CPT/HCPCS: 87015; 87070; 87075; 87077; 87101; 87116; 87186; 87205; 87206; 89050

== ENCOUNTER 2018-06-09 09:19 | Inpatient (IN) | payer OTHER, SELFPAY ==
[2018-04-02 11:29] VITALS: BMI 53.1
[2018-06-09] VITALS (11 sets, daily range): BP systolic 137–166; BP diastolic 73–93; PULSE 72–100; RESP 16–18; TEMP 36.1–37; O2SAT 95–100; BMI 52.7
[2018-06-09 10:05] LABS: International Normalized Ratio 1.1; Prothrombin Time (Protime)PT. 14.5 SECONDS (11.7-14.9)
[2018-06-09 10:06] LABS: Partial Thromboplast Time 30.9 Seconds (24.1-36.2)
[2018-06-09 10:07] LABS: Bedside Glucose 154 mg/dL (70-110)
[2018-06-09 10:13] LABS: Hemoglobin A1c 7.6 % (4.2-6.3)
[2018-06-09 10:25] LABS: AST(SGOT) 72 U/L (15-37); Alanine Aminotransfer ALT/SGPT 50 U/L (13-56); Alkaline Phosphatase 129 U/L (45-117); Bilirubin, Direct 0.18 mg/dL (0.00-0.30); Globulin 4.2 g/dL (2.2-4.2); Protein, Total 7.2 g/dL (6.4-8.2); Thyroid Stim Hormone (TSH) 6.71 uIU/mL (0.358-3.74)
[2018-06-09] MEDS: oxyCODONE HCl Cr 10 MG Tablet PO (10:49)
[2018-06-09] MEDS: Acetaminophen 500 MG Tablet 1000 MG PO ×2 (10:49→21:38)
[2018-06-09 12:09] LABS: M R Staph aureus DNA By PCR Negative (Negative); Probe Check PASS; Specimen Processing Control PASS
[2018-06-09] MEDS: Vancomycin IV 1,000 MG/20 ML Vial 2000 MG OPERA.SITE (16:25)
[2018-06-09] MEDS: Scopolamine 1mg/72hr Patch 1 PATCH TD (16:45)
--- NOTE | 2018-06-09 16:54 | OP.PCM_ITS ---
Report of Operation Date of Procedure: 06/09/18 Pre-Operative Diagnosis: Left total shoulder infection Post-Operative Diagnosis: Left total shoulder infection Surgery/Procedure Performed:: Irrigation debridement exchange of Glenosphere and humeral baseplate. Description of Surgical Findings:: Just below the skin there was a pocket of purulent fluid which tracked down to the joint and the interval between the deltoid and the pectoralis. etymology teacher: Marco A Saleh Type of Anesthesia:: General Anesthesiologist: Romero Thomas Special Medications: 2 g of Ancef after cultures were obtained, 2 g vancomycin powder in the wound at completion of case. Specimen's removed: 4 separate specimens were sent to microbiology 3 deep 1 superficial. Estimated Blood Loss (mL): 200 Fluids Replaced: 1000 mL crystalloid Description of Procedure: 62 yo F history of L TSA in 03/2018 presents with pain and fluctuance under the incision. The fluctuance was aspirated and found to be positive with coag negative staph. Reviewed options were discussed the patient. Based on acuity of the symptoms and organism irrigation debridement with GlenOsphere and baseplate exchange is recommended. Risks and benefits of the procedure were discussed with the patient including but not limited to blood loss, DVTs, PEs, neurovascular damage, infection, general risk of anesthesia including loss of life. Demonstrated understanding and was able to sign informed consent. On the date of procedure patient's L upper extremity was marked in the preoperative area. The patient was then taken back to the operating room where the patient was placed on the table in the supine position. All bony prominences were identified a well-padded. Anesthesia assumed control of the C-spine and airway and remained controlled throughout the remainder of the procedure. Patient was placed in the beachchair position at about 40 degrees of inclination after her head was secured to the table. Left upper extremity was then prepped in a sterile fashion while the surgeon scrubbed. Upon reentering the room the left upper extremity was draped in a standard orthopedic fashion. A timeout was then called and everyone agreed upon the side, the site, the procedure to be performed, patient's identity and antibiotics given. A deltopectoral skin incision was made and sharp dissection was taken down through skin subcutaneous tissue and fat. Just under the skin there was a pocket of fluid which was purulent that could be easily expressed. A finger was placed in this pocket and we able to track it down to the joint. This synovial lining around this area was sent for culture. We then further developed the deltopectoral interval. We were able to identify the joint. Once we got down to the joint synovectomy was performed anteriorly. Once the anterior synovectomy was performed and appropriate releases were done glenohumeral joint was dislocated and the humeral baseplate was dislodged. Humerus was well fixed. Humeral baseplate was then removed and our attention was directed towards the glenoid sphere. Extraction device was used to remove the glenoid sphere and was removed from the joint. While we are in the joint we took 3 separate specimens from the synovium. The remainder of the posterior synovium was debrided and adequate releases were done. After thorough debridement we then used a chlorahexadine scrub sponge and physically scrub the metal implants using a scrub sponge but nothing abrasive. We also scrubbed the remainder of the wound with chlorhexidine. 6 L of normal saline were then irrigated throughout the wound with low-pressure lavage and the wound was once again explored. All remaining tissue that was suspicious was seen in the wound was once again irrigated with normal saline. Components matching the extracted components were then opened. Once it was impacted into place. Polyethylene was packed into the locking mechanism. Reeder taper on the humerus was engaged as the baseplate was impacted into place. Shoulder was reduced. Once the final components were placed the wound was copiously irrigated with normal saline solution. The wound was closed in a layer araiza fashion using #1 vicryl interrupted sutures for the left pectoral interval, 2-0 interrupted Vicryl for the subcuticular layer and nylon sutures for final skin closure. A sterile compressive dressing was then placed. The patient was then awakened from anesthesia, transferred to the [facility] and transferred to the PACU for recovery. Post op plan Patient will remain in the sling for 2 weeks. Then she will begin physical therapy without restrictions at that time. The shoulder is stable. Implants are stably fixed. Infectious disease will be consulted. Based on her coag negative staph we have started her on cefazolin. She is weight-bear as tolerated on the left upper extremity. Grafts/Implants Used: Jose reunion 32 x 4 mm baseplate, 4 mm poly, 32 mm glenoid sphere - Complications No intraoperative complications were encountered - Admit VTE Documentation VTE Present on Admission: No VTE Mechan Device Prophylaxis: SCD's, Knee High ESTER Hose VTE Pharm Prophylaxis ordered?: Yes
--- NOTE | 2018-06-09 17:30 | EKG12_ITS ---
Test Reason : POST OP Blood Pressure : / mmHG Vent. Rate : 090 BPM Atrial Rate : 090 BPM P-R Int : 174 ms QRS Dur : 072 ms QT Int : 386 ms P-R-T Axes : 030 012 084 degrees QTc Int : 472 ms Normal sinus rhythm Nonspecific T wave abnormality Abnormal ECG When compared with ECG of 11-MAR-2018 05:57, No significant change was found Confirmed by AMMY BOOKER, WILLARD ([id number]), editor continuity and script LENIN SANCHEZ ([id number]) on 06/17/2018 1:16:04 PM Referred By: Eduardo Sorto Confirmed By:WILLARD GIMENEZ MD
[2018-06-09 17:31] LABS: Bedside Glucose 112 mg/dL (70-110)
[2018-06-09] MEDS: Lactated Ringers 1,000 ML 125 ML IV (19:11)
[2018-06-09] MEDS: Cefazolin 1 GM/50 ML BAG IV (21:38)
[2018-06-09] MEDS: Atorvastatin Calcium 10 MG Tablet PO (21:38)
[2018-06-09] MEDS: Glucerna Shake 120 ML LIQUID PO (21:39)
[2018-06-09] MEDS: Insulin Lispro 100 UNIT/ML INSULN.PEN SC (21:48)
[2018-06-09 21:51] LABS: Bedside Glucose 168 mg/dL (70-110)
[2018-06-10] VITALS (10 sets, daily range): BP systolic 147–175; BP diastolic 81–97; PULSE 75–95; RESP 18; TEMP 36.6–37.1; O2SAT 94–100
--- NOTE | 2018-06-10 02:08 | PCM.PN.HOSP ---
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 Patient reported that about a year ago she had an accident breaking her left shoulder into 3 pieces. Then on March 10, 2018 she had a total left shoulder replacement. He reported that he went to Dr. Sorto's office for clearance to go to work and then it was found that she has a probable infection of the left total shoulder. A Follow-up aspiration showed coagulase-negative Staphylococcus prompting irrigation debridement and exchange of Glenosphere and humeral baseplate. Per surgeon surgeon notes 2 g of Ancef were administered after cultures were obtained and 2 g of vancomycin powder was placed in the wound at the completion of surgery. Patient is on scheduled cefazolin. Infectious disease was consulted. And also internal medicine has been consulted. Patient was seen postoperatively. She reports mild pain in her left shoulder. Labs were reviewed. Notably patient has elevated TSH. Patient reports that she has been feeling fatigue. She reported that the last time her Synthroid was adjusted was a couple of years ago. She reported that because of insurance issues she is unable to see her PCP. She reports taking metformin for diabetes. Review of labs showed that her A1c was 7.5. Vitals/I&O's: Vital Signs Temp Pulse Resp BP Pulse Ox 98.6 F 95 16 139/93 H 96 06/09/18 22:54 06/09/18 22:54 06/09/18 22:54 06/09/18 22:54 06/09/18 22:54 Oxygen Flow Rate (L/min) 2 Oxygen Delivery Method Room Air Weight: 139.3 kg Body Mass Index (BMI) 52.7 Finger Stick Blood Glucose 112 Intake and Output for Last 24 Hours 06/08/18 06/09/18 06/10/18 23:59 23:59 23:59 Intake Total 1999 982 / 982 Output Total 250 / 250 Balance 1999 732 / 732 General: Alert, Oriented x3, Cooperative HEENT: Atraumatic, EOMI, Normocephalic, - - Loss of teeth. Patient wear dentures. Neck: Supple, No JVD, Negative Carotid Bruits Lungs: Clear to auscultation, Normal air movement Cardiovascular: Regular rate, No murmurs Abdomen: Bowel Sounds Present, Soft, Non Tender Extremities: Capillary Refill Less than 3 Seconds, - - Left with swelling. Intact dressing on left shoulder. Tender shoulder. Skin: No rashes, No breakdown Musculoskeletal: No Muscle Wasting Neurological: Neuro grossly intact Psych/Mental Status: Normal Affect, Appropriate Laboratory Results 06/09/18 09:45: PT 14.5, INR 1.1, APTT 30.9 06/09/18 09:45: Total Bilirubin 0.40, Direct Bilirubin 0.18, AST 72 H, ALT 50, Alkaline Phosphatase 129 H, Total Protein 7.2, Albumin 3.0 L, Globulin 4.2, TSH 6.71 H 06/09/18 09:45: Hemoglobin A1c 7.6 H 06/09/18 09:45: MRSA (PCR) Negative 06/09/18 10:01: POC Glucose 154 H 06/09/18 17:27: POC Glucose 112 H 06/09/18 21:41: POC Glucose 168 H Current Medications Acetaminophen (Tylenol) 1,000 mg PO Q8 [facility] Last Admin: 06/09/18 21:38 Dose: 1,000 mg Aspirin (Aspirin) 325 mg PO DAILY@0800 [facility] Atorvastatin Calcium (Lipitor) 10 mg PO QHS [facility] Last Admin: 06/09/18 21:38 Dose: 10 mg Famotidine (Pepcid) 20 mg PO DAILY [facility] Fluoxetine HCl (Prozac) 20 mg PO DAILY [facility] Cefazolin Sodium () 1 gm in 50 mls @ 150 mls/hr IV Q8 [facility] Stop: 06/11/18 14:19 Last Admin: 06/09/18 21:38 Dose: 150 mls/hr Lactated Ringer's () 1,000 mls @ 125 mls/hr IV .Q8H [facility] Lactated Ringer's () 1,000 mls @ 125 mls/hr IV .Q8H [facility] Last Admin: 06/09/18 19:11 Dose: 125 mls/hr Insulin Human Lispro (Humalog Kwikpen (Bkc)) 0 unit SC ACHS [facility]; Protocol Last Admin: 06/09/18 21:48 Dose: 2 units Levothyroxine Sodium (Synthroid) 150 mcg PO DAILY@0600 [facility]) [facility] Sulfate () 2 - 4 mg IV Q2H PRN PRN PRN Reason: Severe pain (6-10) Nutritional Formula (Lactose Free) (Glucerna Shake) 120 ml PO BIDCM [facility] Last Admin: 06/09/18 21:39 Dose: 120 ml Ondansetron HCl (Zofran) 4 mg IV Q8H PRN PRN PRN Reason: Nausea Oxycodone HCl (Oxyir) 5 - 10 mg PO Q4H PRN PRN PRN Reason: PAIN Promethazine HCl (Phenergan) 12.5 mg IV Q6H PRN PRN PRN Reason: NAUSEA/VOMITING Scopolamine HBr (Transderm-Scop) 1 patch TD Q3D [facility] Last Admin: 06/09/18 16:45 Dose: 1 patch Senna/Docusate Sodium (Senokot-S, Shayla-Colace) 2 tablet PO BID PRN PRN PRN Reason: Constipation Sodium Chloride () 5 - 15 ml IV UD PRN PRN Reason: SALINE FLUSH Medical Necessity - Tobacco Use Smoking Status: Never smoker Assessment/Plan All Active Problems (Last Updated 04/02/18 @ 11:29 by Estefania Cook) Abnormal EKG (Acute) Troponin I above reference range (Acute) Patient is a 62-year-old female with a significant history of hypothyroidism; obstructive sleep apnea; and type 2 diabetes; 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 Coagulase-negative staphylococcus left total shoulder replacement status post irrigation debridement exchange of Glenosphere and humeral baseplate. Per orthopedic surgeon surgeon notes 2 g of Ancef were administered after cultures were obtained and 2 g of vancomycin powder was placed in the wound at the completion of surgery. Infectious disease was consulted by primary (Orthopedic Surgery) Patient is currently on scheduled 1 g Ancef every 8 hours. Review of old records shows that CRP on 06/03/2018 was 24 (normal 0 to 3) Her ESR on 06/03/2018 was 46 (normal 0-30) MRSA (PCR) serology on 06/09/2018 was negative. MRSA nasal swab on 03/02/2018 was negative. Tissue culture on 06/09/2018 is pending. Preliminary body fluid culture from Synovial Fluid obtained on 06/07/2018 showed coagulase negative staph. Review of up-to-date shows empiric treatment for CONS as vancomycin. Will order a one-time dose of vancomycin IV as we await infectious disease to see patient. Continue cefazolin Pain management and other management per orthopedic surgeon. Hypothyroidism Review of records showed a 1 06/09/2018 TSH was 6.71 Patient is on Synthroid 125 mcg daily. She reports that it was a couple of years since her Synthroid dose was adjusted. She reports fatigue. We will escalate her Synthroid from 125 mcg to 150 mcg daily. Diabetes mellitus type 2 Her A1c on 06/09/2018 was 7.6. At home patient takes extended release Metformin 1000 mcg daily. Inpatient her blood glucose has been between 112-168. This may be due to n.p.o. status postoperatively. Inpatient had hypoglycemic regimen includes metformin and correction scale insulin. Continue Accu-Chek q. before meals at bedtime. Consider escalating metformin regimen if patient is continually requiring her correction scale insulin. Depression Prozac continued Elevated alkaline phosphatase: on admission her alkaline phosphatase was 129 (normal 45-117). Review of records show that this is chronic. She denies any symptoms related to diagnosis like primary biliary cirrhosis. Different diagnosis include fatty liver disease. Outpatient follow-up. Elevated liver enzymes AST on admission was 72 (normal 15-37). Review of records shows chronic elevation of AST. ALT is normal. Differential Diagnosis include fatty liver disease. Recommend patient follow-up outpatient. History of abnormal EKG and elevated troponin Patient reported that with previous procedure perioperatively she had elevated troponin and abnormal EKG for which reason aspirin was started and supposed to follow-up with a stress test. Aspirin continued. Patient to follow up outpatient for stress test. Obstructive sleep apnea CPAP continued DVT prophylaxis SCD On asa 325mg Further management per orthopedic surgery. Code Visit Inpatient E&M: 48203 Subs Hosp L3
--- NOTE | 2018-06-10 02:12 | PN_ITS ---
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 Patient reported that about a year ago she had an accident breaking her left shoulder into 3 pieces. Then on March 10, 2018 she had a total left shoulder replacement. He reported that he went to Dr. Sorto's office for clearance to go to work and then it was found that she has a probable infection of the left total shoulder. A Follow-up aspiration showed coagulase-negative Staphylococcus prompting irrigation debridement and exchange of Glenosphere and humeral baseplate. Per surgeon surgeon notes 2 g of Ancef were administered after cultures were obtained and 2 g of vancomycin powder was placed in the wound at the completion of surgery. Patient is on scheduled cefazolin. Infectious disease was consulted. And also internal medicine has been consulted. Patient was seen postoperatively. She reports mild pain in her left shoulder. Labs were reviewed. Notably patient has elevated TSH. Patient reports that she has been feeling fatigue. She reported that the last time her Synthroid was adjusted was a couple of years ago. She reported that because of insurance issues she is unable to see her PCP. She reports taking metformin for diabetes. Review of labs showed that her A1c was 7.5. Vitals/I&O's: Vital Signs Temp Pulse Resp BP Pulse Ox 98.6 F 95 16 139/93 H 96 06/09/18 22:54 06/09/18 22:54 06/09/18 22:54 06/09/18 22:54 06/09/18 22:54 Oxygen Flow Rate (L/min) 2 Oxygen Delivery Method Room Air Weight: 139.3 kg Body Mass Index (BMI) 52.7 Finger Stick Blood Glucose 112 Intake and Output for Last 24 Hours 06/08/18 06/09/18 06/10/18 23:59 23:59 23:59 Intake Total 1999 982 / 982 Output Total 250 / 250 Balance 1999 732 / 732 General: Alert, Oriented x3, Cooperative HEENT: Atraumatic, EOMI, Normocephalic, - - Loss of teeth. Patient wear dentures. Neck: Supple, No JVD, Negative Carotid Bruits Lungs: Clear to auscultation, Normal air movement Cardiovascular: Regular rate, No murmurs Abdomen: Bowel Sounds Present, Soft, Non Tender Extremities: Capillary Refill Less than 3 Seconds, - - Left with swelling. Intact dressing on left shoulder. Tender shoulder. Skin: No rashes, No breakdown Musculoskeletal: No Muscle Wasting Neurological: Neuro grossly intact Psych/Mental Status: Normal Affect, Appropriate Laboratory Results 06/09/18 09:45: PT 14.5, INR 1.1, APTT 30.9 06/09/18 09:45: Total Bilirubin 0.40, Direct Bilirubin 0.18, AST 72 H, ALT 50, Alkaline Phosphatase 129 H, Total Protein 7.2, Albumin 3.0 L, Globulin 4.2, TSH 6.71 H 06/09/18 09:45: Hemoglobin A1c 7.6 H 06/09/18 09:45: MRSA (PCR) Negative 06/09/18 10:01: POC Glucose 154 H 06/09/18 17:27: POC Glucose 112 H 06/09/18 21:41: POC Glucose 168 H Current Medications Acetaminophen (Tylenol) 1,000 mg PO Q8 [facility] Last Admin: 06/09/18 21:38 Dose: 1,000 mg Aspirin (Aspirin) 325 mg PO DAILY@0800 [facility] Atorvastatin Calcium (Lipitor) 10 mg PO QHS [facility] Last Admin: 06/09/18 21:38 Dose: 10 mg Famotidine (Pepcid) 20 mg PO DAILY [facility] Fluoxetine HCl (Prozac) 20 mg PO DAILY [facility] Cefazolin Sodium () 1 gm in 50 mls @ 150 mls/hr IV Q8 [facility] Stop: 06/11/18 14:19 Last Admin: 06/09/18 21:38 Dose: 150 mls/hr Lactated Ringer's () 1,000 mls @ 125 mls/hr IV .Q8H [facility] Lactated Ringer's () 1,000 mls @ 125 mls/hr IV .Q8H [facility] Last Admin: 06/09/18 19:11 Dose: 125 mls/hr Insulin Human Lispro (Humalog Kwikpen (Bkc)) 0 unit SC ACHS [facility]; Protocol Last Admin: 06/09/18 21:48 Dose: 2 units Levothyroxine Sodium (Synthroid) 150 mcg PO DAILY@0600 [facility] Metformin [facility] (Glucophage) [facility]ine Sulfate () 2 - 4 mg IV Q2H PRN PRN PRN Reason: Severe pain (6-10) Nutritional Formula (Lactose Free) (Glucerna Shake) 120 ml PO BIDCM [facility] Last Admin: 06/09/18 21:39 Dose: 120 ml Ondansetron HCl (Zofran) 4 mg IV Q8H PRN PRN PRN Reason: Nausea Oxycodone HCl (Oxyir) 5 - 10 mg PO Q4H PRN PRN PRN Reason: PAIN Promethazine HCl (Phenergan) 12.5 mg IV Q6H PRN PRN PRN Reason: NAUSEA/VOMITING Scopolamine HBr (Transderm-Scop) 1 patch TD Q3D [facility] Last Admin: 06/09/18 16:45 Dose: 1 patch Senna/Docusate Sodium (Senokot-S, Shayla-Colace) 2 tablet PO BID PRN PRN PRN Reason: Constipation Sodium Chloride () 5 - 15 ml IV UD PRN PRN Reason: SALINE FLUSH Medical Necessity - Tobacco Use Smoking Status: Never smoker Assessment/Plan All Active Problems (Last Updated 04/02/18 @ 11:29 by Estefania Cook) Abnormal EKG (Acute) Troponin I above reference range (Acute) Patient is a 62-year-old female with a significant history of hypothyroidism; obstructive sleep apnea; and type 2 diabetes; 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 Coagulase-negative staphylococcus left total shoulder replacement status post irrigation debridement exchange of Glenosphere and humeral baseplate. Per orthopedic surgeon surgeon notes 2 g of Ancef were administered after cultures were obtained and 2 g of vancomycin powder was placed in the wound at the completion of surgery. Infectious disease was consulted by primary (Orthopedic Surgery) Patient is currently on scheduled 1 g Ancef every 8 hours. Review of old records shows that CRP on 06/03/2018 was 24 (normal 0 to 3) Her ESR on 06/03/2018 was 46 (normal 0-30) MRSA (PCR) serology on 06/09/2018 was negative. MRSA nasal swab on 03/02/2018 was negative. Tissue culture on 06/09/2018 is pending. Preliminary body fluid culture from Synovial Fluid obtained on 06/07/2018 showed coagulase negative staph. Review of up-to-date shows empiric treatment for CONS as vancomycin. Will order a one-time dose of vancomycin IV as we await infectious disease to see patient. Continue cefazolin Pain management and other management per orthopedic surgeon. Hypothyroidism Review of records showed a 1 06/09/2018 TSH was 6.71 Patient is on Synthroid 125 mcg daily. She reports that it was a couple of years since her Synthroid dose was adjusted. She reports fatigue. We will escalate her Synthroid from 125 mcg to 150 mcg daily. Diabetes mellitus type 2 Her A1c on 06/09/2018 was 7.6. At home patient takes extended release Metformin 1000 mcg daily. Inpatient her blood glucose has been between 112-168. This may be due to n.p.o. status postoperatively. Inpatient had hypoglycemic regimen includes metformin and correction scale insulin. Continue Accu-Chek q. before meals at bedtime. Consider escalating metformin regimen if patient is continually requiring her correction scale insulin. Depression Prozac continued Elevated alkaline phosphatase: on admission her alkaline phosphatase was 129 (normal 45-117). Review of records show that this is chronic. She denies any symptoms related to diagnosis like primary biliary cirrhosis. Different diagnosis include fatty liver disease. Outpatient follow-up. Elevated liver enzymes AST on admission was 72 (normal 15-37). Review of records shows chronic elevation of AST. ALT is normal. Differential Diagnosis include fatty liver disease. Recommend patient follow-up outpatient. History of abnormal EKG and elevated troponin Patient reported that with previous procedure perioperatively she had elevated troponin and abnormal EKG for which reason aspirin was started and supposed to follow-up with a stress test. Aspirin continued. Patient to follow up outpatient for stress test. Obstructive sleep apnea CPAP continued DVT prophylaxis SCD On asa 325mg Further management per orthopedic surgery. Code Visit Inpatient E&M: 33048 Subs Hosp L3
[2018-06-10] MEDS: oxyCODONE 5 MG Tablet PO ×3 (02:46→14:52)
[2018-06-10] MEDS: Lactated Ringers 1,000 ML 125 ML IV (02:47)
[2018-06-10 06:24] LABS: Anion Gap 10 (5-15); BUN 10 mg/dL (7-18); BUN/Creat Ratio 12.1 RATIO (10-20); Calcium,Total 7.7 mg/dL (8.5-10.1); Chloride 108 mmol/L (98-107); Creatinine, Serum 0.83 mg/dL (0.55-1.02); EST Glomerular Filtration Rate 75 mL/min (>60); Est Glom Filt Rate - Afr Amer 90 mL/min (>60); Estimated Creatinine Clearance 62.24 ml/min; Glucose 128 mg/dL (74-106); Sodium Level 140 mmol/L (136-145)
[2018-06-10] MEDS: Levothyroxine 150 MCG Tablet PO (06:24)
[2018-06-10] MEDS: Acetaminophen 500 MG Tablet 1000 MG PO ×3 (06:24→22:30)
[2018-06-10] MEDS: Cefazolin 1 GM/50 ML BAG IV ×3 (06:24→22:31)
[2018-06-10 06:25] LABS: Hematocrit 36.8 % (37-47); Hemoglobin 11.8 g/dl (12.0-15.0); Mean Corp Hgb Conc 32.1 g/gl (32-36); Mean Corpuscular Hgb 30.6 pg (27.0-32.0); Mean Corpuscular Volume 95.6 fL (81-99); Mean Platelet Vol. 9.3 fl (6.2-12.0); Platelet Count 215 K/mm3 (150-450); RBC Distribution Width CV 12.9 % (11.6-14.6); RBC Distribution Width SD 43.4 fl (35.1-43.9); Red Blood Count 3.85 M/mm3 (4.2-5.4)
[2018-06-10 06:28] LABS: Scan Indicated on CBC? Y/N NO
[2018-06-10 06:52] LABS: Bedside Glucose 113 mg/dL (70-110)
[2018-06-10] MEDS: metFORMIN HCl 1,000 MG Tablet 1000 MG PO (09:05)
[2018-06-10] MEDS: FLUoxetine 20 MG Capsule PO (09:05)
[2018-06-10] MEDS: Famotidine 20 MG Tablet PO (09:06)
[2018-06-10] MEDS: Aspirin 325 MG Tablet PO (09:06)
[2018-06-10] MEDS: Glucerna Shake 120 ML LIQUID PO ×2 (09:07→16:29)
--- NOTE | 2018-06-10 09:38 | PCM.PN.ORT ---
Subjective: The patient was sitting in bedside chair upon examination. Patient denies any chest pain, shortness of breath, dizziness, lightheadedness, nausea or vomiting, or calf pain. Pain is controlled on medications. No adverse overnight events. Patient does complain of pain in her left shoulder. Medications are helpful. Cultures are still pending. Patient did have aspiration prior to surgery which was positive for coag negative staph. Infectious disease has been consulted.. Objective: Vital signs stable, afebrile Dressing is clean, dry, intact Ultra-sling fitting appropriately Sensation intact to axillary, radial, median, and ulnar distribution Motor intact to AIN, PIN, and ulnar nerve - Physical Exam General: Alert, Oriented x3, Cooperative, No apparent distress Vital Signs Temp Pulse Resp BP Pulse Ox 98.5 F 90 18 175/97 H 98 06/10/18 02:41 06/10/18 06:03 06/10/18 02:41 06/10/18 02:41 06/10/18 02:41 Oxygen Flow Rate (L/min) 2 Oxygen Delivery Method Room Air Weight: 139.3 kg Body Mass Index (BMI) 52.7 Finger Stick Blood Glucose 112 Intake and Output for Last 24 Hours 06/08/18 06/09/18 06/10/18 23:59 23:59 23:59 Intake Total 1999 2190 / 2190 Output Total 450 / 450 Balance 1999 1740 / 1740 Laboratory Tests Past 24 Hrs 06/09/18 06/09/18 06/09/18 09:45 09:45 09:45 WBC RBC Hgb Hct MCV MCH MCHC RDW RDW Differential Plt Count MPV PT 14.5 INR 1.1 APTT 30.9 Sodium Potassium Chloride Carbon Dioxide Anion Gap BUN Creatinine Estim Creat Clear Calc Est GFR (MDRD) Af Amer Est GFR (MDRD) Non-Af BUN/Creatinine Ratio Glucose Hemoglobin A1c 7.6 H Calcium Total Bilirubin 0.40 Direct Bilirubin 0.18 AST 72 H ALT 50 Alkaline Phosphatase 129 H Total Protein 7.2 Albumin 3.0 L Globulin 4.2 TSH 6.71 H MRSA (PCR) 06/09/18 06/10/18 06/10/18 09:45 05:38 05:38 WBC 9.0 RBC 3.85 L Hgb 11.8 L Hct 36.8 L MCV 95.6 MCH 30.6 MCHC 32.1 RDW 12.9 RDW Differential 43.4 Plt Count 215 MPV 9.3 PT INR APTT Sodium 140 Potassium 4.0 Chloride 108 H Carbon Dioxide 22.0 Anion Gap 10 BUN 10 Creatinine 0.83 Estim Creat Clear Calc 62.24 Est GFR (MDRD) Af Amer 90 Est GFR (MDRD) Non-Af 75 BUN/Creatinine Ratio 12.1 Glucose 128 H Hemoglobin A1c Calcium 7.7 L Total Bilirubin Direct Bilirubin AST ALT Alkaline Phosphatase Total Protein Albumin Globulin TSH MRSA (PCR) Negative POC Glucose 06/10/18 06/09/18 06/09/18 06:43 21:41 17:27 POC Glucose 113 H 168 H 112 H 06/09/18 10:01 POC Glucose 154 H Medical Necessity - Tobacco Use Smoking Status: Never smoker Assessment/Plan All Active Problems (Last Updated 04/02/18 @ 11:29 by Estefania Cook) Abnormal EKG (Acute) Troponin I above reference range (Acute) 1. S/P irrigation debridement and exchange of Mandie sphere and humeral baseplate left shoulder secondary to infection POD #1 2. Continue Pain Medications: Tylenol and OxyIR 3. DVT Prophylaxis: Aspirin 325 mg once daily with food for 2 weeks postoperatively 4. PT/OT: Continue with UltraSling for the first 2 weeks. Okay to work on elbow, wrist, hand range of motion. Patient will begin outpatient physical therapy without restrictions at 2 weeks postoperatively 5. H & H: 11.8/36.8, asymptomatic 6. Encouraged Incentive Spirometry 7. Infectious disease consult: Appreciate recommendation for antibiotics. Anticipate IV antibiotics 6 weeks postoperatively. Currently on cefazolin. 8. Continue postoperative medical management per medicine 9. Disposition: Upon discharge patient does wish to try to go home. Will need antibiotics set up. Possible discharge tomorrow if pain is well controlled and medications and antibiotics are set up.
--- NOTE | 2018-06-10 10:27 | PCM.HP.ID ---
Problem List (1) Infection of prosthetic shoulder joint Status: Acute Reason for Consult: PJI Consulted by: Dr. Sorto History of Present Illness: The patient is a 62 year old F with L shoulder replacement 03/[address] Sorto. About 3 weeks post-op, developed some incision redness, pain, swelling, and drainage. Given course of doxy, and sx resolved except for some mild soreness that worsened with PT. Had some rare fevers at home. For the past week, progressive pain, redness, swelling, and moderate fatigue. Seen by Dr. Sorto, blood work done, then aspiration done 06/07. Cx with CONS, admitted for debridement 06/09 with deep tracking abscess seen intra-op. Now on cefazolin, pain improved. Full ROS performed and neg except as noted above. - Medical History Past Medical History (Chronic Problems): Chronic Problems (Last Updated 04/02/18 @ 11:29 by Estefania Cook) Obstructive sleep apnea (Chronic) Wears CPAP Hypothyroidism (Chronic) Diabetes mellitus, type II (Chronic) Allergies/Adverse Reactions: Allergies adhesive tape Allergy (Verified 06/08/18 10:04) BLISTERS/SCARS codeine Allergy (Verified 06/08/18 10:04) Shortness of breath Sulfa (Sulfonamide Antibiotics) Allergy (Verified 06/08/18 10:04) Rash Tetanus Vaccines and Toxoid [Tetanus Vaccines & Toxoid] Allergy (Verified 06/08/18 10:04) Swelling meperidine HCl [From Demerol] Adverse Reaction (Verified 06/08/18 10:04) Itching STERISTRIPS Allergy (Uncoded 06/08/18 10:04) BLISTERS/SCARS Home Medications: Ambulatory Orders Medication Instructions Recorded Cholecalciferol (VIT D3) [Vitamin 10,000 unit PO DAILY 06/05/14 D3] Fluoxetine [Prozac] 20 mg PO DAILY 06/05/14 aspirin 81 mg tablet,delayed 81 mg PO DAILY 04/02/18 release levothyroxine 125 mcg capsule 125 mcg PO DAILY 04/02/18 metformin 1,000 mg tablet 1,000 mg PO DAILY 04/02/18 Famotidine [Pepcid] 20 mg PO DAILY 06/08/18 Simvastatin 20 mg PO QHS 06/08/18 Vancomycin HCl in 5 % Dextrose 2 gm IV Q24H 40 Days #40 plast..bag 06/10/18 [Vancomycin 2 Gram/500 ml-D5w] - Social History SMOKING STATUS:: Never smoker Vital Signs Temp Pulse Resp BP Pulse Ox 97.9 F 75 18 156/95 H 100 06/10/18 09:15 06/10/18 09:15 06/10/18 09:15 06/10/18 09:15 06/10/18 09:15 Oxygen Flow Rate (L/min) 2 Oxygen Delivery Method Room Air Weight: 139.3 kg Body Mass Index (BMI) 52.7 Finger Stick Blood Glucose 112 Microbiology Past 72 Hours 06/09/18 15:35 Gram Stain - Final Tissue - Shoulder 06/09/18 15:35 Gram Stain - Final Tissue - Shoulder 06/09/18 15:35 Gram Stain - Final Tissue - Shoulder 06/09/18 15:35 Gram Stain - Final Tissue - Shoulder Laboratory Tests Past 24 Hrs 06/09/18 06/10/18 06/10/18 09:45 05:38 05:38 WBC 9.0 RBC 3.85 L Hgb 11.8 L Hct 36.8 L MCV 95.6 MCH 30.6 MCHC 32.1 RDW 12.9 RDW Differential 43.4 Plt Count 215 MPV 9.3 Sodium 140 Potassium 4.0 Chloride 108 H Carbon Dioxide 22.0 Anion Gap 10 BUN 10 Creatinine 0.83 Estim Creat Clear Calc 62.24 Est GFR (MDRD) Af Amer 90 Est GFR (MDRD) Non-Af 75 BUN/Creatinine Ratio 12.1 Glucose 128 H Calcium 7.7 L MRSA (PCR) Negative - Other Studies Radiology: [] reviewed Other Studies: [] Route of nutrition/ use of supplements: [] Nutritional Intake: [] IV Site: [] Jang Catheter: [] - Physical Exam General: Alert, Oriented x3, Cooperative, No apparent distress HEENT: Atraumatic, PERRLA, EOMI Neck: Supple, No Nodes Lungs: Clear to auscultation, Normal air movement Cardiovascular: Regular rate, Regular Rhythm, No murmurs Abdomen: Soft, Non Tender, Non-Distended, Obese Extremities: No edema, - - L shoulder in sling Skin: No rashes, Incision - bandaged Musculoskeletal: No Tenderness to Palpation of Joints or Extremities - other than L shoulder Neurological: Cranial nerves II-XII grossly intact - Assessment/Plan Antibiotics: [] Assessment/Plan: [] DEREK L shoulder PJI - now s/p OR 06/09/[address] Sorto. Aspiration cx 06/07/18 with MRSE. Will add vanc for MRSE coverage, will order picc for planned 6 weeks of iv vanc, stop date 07/21/18, weekly bmp, cbc, esr, and vanc trough. ID followup with me in 2-3 weeks. After course of iv abx, plan on 12 months of po doxy. Will follow, thank you, d/w primary team, rx written for labs and abx.
--- NOTE | 2018-06-10 10:34 | PCM.RX.CS ---
Consult Pharmacy has been consulted to manage selected antiobiotic: Vancomycin Type of Consult: New start Suspected Infection: Other Labs: Sodium 140 mmol/L (136-145) 06/10/18 05:38 Potassium 4.0 mmol/L (3.5-5.1) 06/10/18 05:38 Chloride 108 mmol/L (98-107) H 06/10/18 05:38 Carbon Dioxide 22.0 mmol/L (21.0-32.0) 06/10/18 05:38 Anion Gap 10 (5-15) 06/10/18 05:38 BUN 10 mg/dL (7-18) 06/10/18 05:38 Creatinine 0.83 mg/dL (0.55-1.02) 06/10/18 05:38 Est GFR (MDRD) Af Amer 90 mL/min (>60) 06/10/18 05:38 Est GFR (MDRD) Non-Af 75 mL/min (>60) 06/10/18 05:38 BUN/Creatinine Ratio 12.1 RATIO (10-20) 06/10/18 05:38 Glucose 128 mg/dL (74-106) H 06/10/18 05:38 Microbiology: Microbiology 06/09/18 15:35 Tissue - Shoulder Gram Stain - Final 06/09/18 15:35 Tissue - Shoulder Gram Stain - Final 06/09/18 15:35 Tissue - Shoulder Gram Stain - Final 06/09/18 15:35 Tissue - Shoulder Gram Stain - Final Weight used for dosin kg Estimated Creatinine Clearance: 62 ml/min Goal Trough: 15-20 mcg/mL Pharmacy Plan for Drug Dosing: D/W Dr Garcia, will not follow protocol for initial dosing. Patient received 2000mg IV x1, will give 1500mg IV x1 to finish loading, 1500mg IV q12h starting thereafter at 8pm to allow for easier homegoing dosing and trough prior to 8pm dose on 06/11 instead of prior to 4th dose per protocol. Pharmacy Service will continue to monitor and adjust dosing as required. Follow-Up Labs: Trough Vancomycin - 06/11 @ 1930
[2018-06-10] MEDS: Insulin Lispro 100 UNIT/ML INSULN.PEN SC ×2 (11:26→22:31)
[2018-06-10 11:52] LABS: Bedside Glucose 171 mg/dL (70-110)
--- NOTE | 2018-06-10 12:50 | CASEMGMT ---
RN CM Assessment Presentation: LT Shoulder Irrigation, Debridement exchange of Glenosphere and humeral baseplate. Intro role of CM and purpose of RN CM assessment. Pt states she is aware of IV antibiotics planned on dc. PICC line to be placed. Pt is agreeable to any Home Health, Infusion company that is approved by [facility]. Call to [employer]. Pt's [employer] company is through: [employer] Business Taxes Specialist: Lily Pacheco PH: PH: FX: FX: PCP: Dr. Martinez Specialists: Dr. Sorto Preferred Pharmacy: [facility] Insurance: [facility] # [id number] LNOK: Zachary Denisesulykingdarrius, Living Arrangements: Lives independently with . Daughter available to assist. Transportation: , daughter able to assist. DME/HHC: No DME, will need home health on discharge. DC PLAN: Home with IV antibiotics.
--- NOTE | 2018-06-10 13:15 | CASEMGMT ---
Call made to Lily Pacheco CM with [facility] [employer] [facility]. Message left with request for call back. Josh HOLMANN RN ACM
[2018-06-10] MEDS: 0.9% NaCl Peripheral Flush Adult/Peds IV (13:43)
--- NOTE | 2018-06-10 14:25 | CASEMGMT ---
Call to [facility], spoke with fruit or nut farmer. ASH ALFREDO requested to speak with Lily Pacheco, then rubbish collection supervisor when she was not available. Unable to speak with either, but fruit or nut farmer sent email to Liyl Pacheco requesting she call ASH ALFREDO and give information re: Infusion company, and Home Health. Josh HOLMANN ASH AC
--- NOTE | 2018-06-10 15:25 | CASEMGMT ---
Addendum entered by Marty Carney 06/10/18 16:26: Per Lily Pacheco. If [facility] set up, pt can dc home, and C9 can be faxed to her when completed- does not need to delay dc. Josh HOLMANN RN ACM Original Note: ASH ALFREDO Note: Call received from Lily Pacheco CM with [facility] [employer] [facility]. Per Lily, C-9 for surgery had not been received. She requested clinical information re: surgery and post discharge care needs. Referral can be sent to [facility] for IV antibiotics and home health. -Referral faxed to [facility] for IV antibiotics, supplies and Home care set up. C9 form (not completed yet, but general information for [facility] to use for billing purposes) also faxed. -Call to [place] @ [facility] to notify of referral and need to set up home healthcare. They will review and call back.
[2018-06-10 17:52] LABS: Bedside Glucose 125 mg/dL (70-110)
[2018-06-10] MEDS: Atorvastatin Calcium 10 MG Tablet PO (22:31)
[2018-06-10 22:46] LABS: Bedside Glucose 150 mg/dL (70-110)
[2018-06-11 00:01] VITALS: PULSE 87
[2018-06-11 02:50] VITALS: BP 135/61; PULSE 74; RESP 18; TEMP 36.9; O2SAT 97
[2018-06-11 04:31] VITALS: PULSE 71
[2018-06-11] MEDS: Acetaminophen 500 MG Tablet 1000 MG PO ×2 (06:16→14:52)
[2018-06-11] MEDS: Cefazolin 1 GM/50 ML BAG IV ×2 (06:16→14:52)
[2018-06-11] MEDS: Levothyroxine 150 MCG Tablet PO (06:17)
[2018-06-11 07:03] VITALS: PULSE 69
--- NOTE | 2018-06-11 07:24 | PCM.PN.ORT ---
Patient Problems: Active and Suspected Problems (Last Updated 04/02/18 @ 11:29 by Estefania Cook) Infection of prosthetic shoulder joint (Acute) Subjective: The patient was sitting in bed upon examination. Patient denies any chest pain, shortness of breath, dizziness, lightheadedness, nausea or vomiting, or calf pain. Pain is controlled on medications. No adverse overnight events. Patient is doing much better today. She is able to move the elbow much better. Her pain is been better controlled. Infectious disease has seen patient and will be set up for 6 weeks of IV antibiotics with vancomycin. Patient will schedule outpatient physical therapy to begin after 2-week follow-up at [facility]. Objective: Vital signs stable, afebrile Dressing is clean, dry, intact Ultra-sling fitting appropriately Sensation intact to axillary, radial, median, and ulnar distribution Motor intact to AIN, PIN, and ulnar nerve - Physical Exam General: Alert, Oriented x3, Cooperative, No apparent distress Vital Signs Temp Pulse Resp BP Pulse Ox 98.4 F 74 18 135/61 H 97 06/11/18 02:50 06/11/18 02:50 06/11/18 02:50 06/11/18 02:50 06/11/18 02:50 Oxygen Flow Rate (L/min) 2 Oxygen Delivery Method Room Air Weight: 139.3 kg Body Mass Index (BMI) 52.7 Finger Stick Blood Glucose 112 Intake and Output for Last 24 Hours 06/09/18 06/10/18 06/11/18 23:59 23:59 23:59 Intake Total 1999 3822 / 3822 760 / 760 Output Total 2575 / 2575 900 / 900 Balance 1999 1247 / 1247 -140 / -140 Microbiology Past 72 Hours 06/09/18 15:35 Gram Stain - Final Tissue - Shoulder Wound Culture - Preliminary Gram positive organism 06/09/18 15:35 Gram Stain - Final Tissue - Shoulder Wound Culture - Preliminary No growth-Final to follow 06/09/18 15:35 Gram Stain - Final Tissue - Shoulder Wound Culture - Preliminary No growth-Final to follow 06/09/18 15:35 Gram Stain - Final Tissue - Shoulder Wound Culture - Preliminary No growth-Final to follow POC Glucose 06/10/18 06/10/18 06/10/18 22:29 16:23 11:24 POC Glucose 150 H 125 H 171 H Medical Necessity - Tobacco Use Smoking Status: Never smoker Assessment/Plan All Active Problems (Last Updated 04/02/18 @ 11:29 by Estefania Cook) Infection of prosthetic shoulder joint (Acute) Abnormal EKG (Acute) Troponin I above reference range (Acute) 1. S/P irrigation debridement and exchange of Mandie sphere and humeral baseplate left shoulder secondary to infection POD #2 2. Continue Pain Medications: Tylenol and OxyIR 3. DVT Prophylaxis: Aspirin 325 mg once daily with food for 2 weeks postoperatively 4. PT/OT: Continue with UltraSling for the first 2 weeks. Okay to work on elbow, wrist, hand range of motion. Patient will begin outpatient physical therapy without restrictions at 2 weeks postoperatively 5. Encouraged Incentive Spirometry 6. Infectious disease consult: Appreciate recommendation for antibiotics. Plan will be for IV vancomycin for 6 weeks postoperatively. Patient has had PICC line placed. Plan will be for stop date on July 21, 2018. She is to get weekly BMP, CBC, ESR and Vanco trough. This will be followed by infectious disease. After IV antibiotics plan will be for 12 months of oral doxycycline. Patient will follow-up with infectious disease in the next 2-3 weeks. 7. Continue postoperative medical management per medicine 8. Disposition: Orthopedically stable, patient is doing much better today. PICC line has been placed. Patient will continue with antibiotics as listed above per infectious disease. Prescriptions will be E scribed to [facility] pharmacy. She will follow-up per postop instructions. She will need outpatient physical therapy scheduled to begin after 2-week follow-up at [facility].
[2018-06-11 07:31] LABS: Bedside Glucose 126 mg/dL (70-110)
--- NOTE | 2018-06-11 07:39 | PN.ORTHO_ITS ---
Patient Problems: Active and Suspected Problems (Last Updated 04/02/18 @ 11:29 by Estefania Cook) Infection of prosthetic shoulder joint (Acute) Subjective: The patient was sitting in bed upon examination. Patient denies any chest pain, shortness of breath, dizziness, lightheadedness, nausea or vomiting, or calf pain. Pain is controlled on medications. No adverse overnight events. Patient is doing much better today. She is able to move the elbow much better. Her pain is been better controlled. Infectious disease has seen patient and will be set up for 6 weeks of IV antibiotics with vancomycin. Patient will schedule outpatient physical therapy to begin after 2-week follow-up at [facility]. Objective: Vital signs stable, afebrile Dressing is clean, dry, intact Ultra-sling fitting appropriately Sensation intact to axillary, radial, median, and ulnar distribution Motor intact to AIN, PIN, and ulnar nerve - Physical Exam General: Alert, Oriented x3, Cooperative, No apparent distress Vital Signs Temp Pulse Resp BP Pulse Ox 98.4 F 74 18 135/61 H 97 06/11/18 02:50 06/11/18 02:50 06/11/18 02:50 06/11/18 02:50 06/11/18 02:50 Oxygen Flow Rate (L/min) 2 Oxygen Delivery Method Room Air Weight: 139.3 kg Body Mass Index (BMI) 52.7 Finger Stick Blood Glucose 112 Intake and Output for Last 24 Hours 06/09/18 06/10/18 06/11/18 23:59 23:59 23:59 Intake Total 1999 3822 / 3822 760 / 760 Output Total 2575 / 2575 900 / 900 Balance 1999 1247 / 1247 -140 / -140 Microbiology Past 72 Hours 06/09/18 15:35 Gram Stain - Final Tissue - Shoulder Wound Culture - Preliminary Gram positive organism 06/09/18 15:35 Gram Stain - Final Tissue - Shoulder Wound Culture - Preliminary No growth-Final to follow 06/09/18 15:35 Gram Stain - Final Tissue - Shoulder Wound Culture - Preliminary No growth-Final to follow 06/09/18 15:35 Gram Stain - Final Tissue - Shoulder Wound Culture - Preliminary No growth-Final to follow POC Glucose 06/10/18 06/10/18 06/10/18 22:29 16:23 11:24 POC Glucose 150 H 125 H 171 H Medical Necessity - Tobacco Use Smoking Status: Never smoker Assessment/Plan All Active Problems (Last Updated 04/02/18 @ 11:29 by Estefania Cook) Infection of prosthetic shoulder joint (Acute) Abnormal EKG (Acute) Troponin I above reference range (Acute) 1. S/P irrigation debridement and exchange of Mandie sphere and humeral baseplate left shoulder secondary to infection POD #2 2. Continue Pain Medications: Tylenol and OxyIR 3. DVT Prophylaxis: Aspirin 325 mg once daily with food for 2 weeks postop eratively 4. PT/OT: Continue with UltraSling for the first 2 weeks. Okay to work on elbow, wrist, hand range of motion. Patient will begin outpatient physical therapy without restrictions at 2 weeks postoperatively 5. Encouraged Incentive Spirometry 6. Infectious disease consult: Appreciate recommendation for antibiotics. Plan will be for IV vancomycin for 6 weeks postoperatively. Patient has had PICC line placed. Plan will be for stop date on July 21, 2018. She is to get weekly BMP, CBC, ESR and Vanco trough. This will be followed by infectious disease. After IV antibiotics plan will be for 12 months of oral doxycycline. Patient will follow-up with infectious disease in the next 2-3 weeks. 7. Continue postoperative medical management per medicine 8. Disposition: Orthopedically stable, patient is doing much better today. PICC line has been placed. Patient will continue with antibiotics as listed above per infectious disease. Prescriptions will be E scribed to [facility] pharmacy. She will follow-up per postop instructions. She will need outpatient physical therapy scheduled to begin after 2-week follow-up at [facility].
--- NOTE | 2018-06-11 07:42 | PCM.DC.ORTHO ---
Discharge Diet: 1800 Calorie Control Diet Discharge Activity: May Not Drive May shower in (days): 1 - Must cover a PICC line for shower Ice area for (Minutes): 20 - Ice area for 20 minutes each hour while awake Call your doctor if your incision/area has: Continuous Slow Oozing, Sudden Increased Bleeding, Increased Pain/ Swelling, Increased Redness, Foul Smelling Discharge Call your doctor if you observe: Fever of 101 or Higher, Coldness, Increased Pain, Numbness or Tingling, Change in Color Remove Dressing in (days):: 3 - Okay to remove dressing on June 14, 2018 Additional Instructions: Follow [facility] postop instructions Allergies/Adverse Reactions: Allergies adhesive tape Allergy (Verified 06/08/18 10:04) BLISTERS/SCARS codeine Allergy (Verified 06/08/18 10:04) Shortness of breath Sulfa (Sulfonamide Antibiotics) Allergy (Verified 06/08/18 10:04) Rash Tetanus Vaccines and Toxoid [Tetanus Vaccines & Toxoid] Allergy (Verified 06/08/18 10:04) Swelling meperidine HCl [From Demerol] Adverse Reaction (Verified 06/08/18 10:04) Itching STERISTRIPS Allergy (Uncoded 06/08/18 10:04) BLISTERS/SCARS Medications to take at Discharge Cholecalciferol (VIT D3) [Vitamin D3] 10,000 unit PO DAILY 06/05/14 Fluoxetine [Prozac] 20 mg PO DAILY 06/05/14 levothyroxine 125 mcg capsule 125 mcg PO DAILY 04/02/18 metformin 1,000 mg tablet 1,000 mg PO DAILY 04/02/18 Simvastatin 20 mg PO QHS 06/08/18 Vancomycin IV 1,500 mg IV Q12H 40 Days #80 vial 06/10/18 Acetaminophen [Tylenol] 1,000 mg PO Q8 #90 tablet 06/11/18 Aspirin 325 mg PO DAILY@0800 #12 tablet 06/11/18 Famotidine [Pepcid] 20 mg PO DAILY #12 tablet 06/11/18 Oxycodone [Oxyir] 5 - 10 mg PO Q4H PRN PRN 5 Days #60 tablet 06/11/18 Senna/Docusate Sodium [Senokot-S] 2 tablet PO BID PRN PRN #20 tablet 06/11/18 The following prescriptions were given: Oxycodone [Oxyir] 5 - 10 mg PO Q4H PRN PRN 5 Days #60 tablet PRN Reason: Pain Acetaminophen [Tylenol] 1,000 mg PO Q8 #90 tablet Aspirin 325 mg PO DAILY@0800 #12 tablet Famotidine [Pepcid] 20 mg PO DAILY #12 tablet Senna/Docusate Sodium [Senokot-S] 2 tablet PO BID PRN PRN #20 tablet PRN Reason: Constipation Vancomycin IV 1,500 mg IV Q12H 40 Days #80 vial Primary Care Physician: Diana Martinez DO [Primary Care Provider] - Test Results: Test results from this visit will be discussed in further detail at your follow-up appointment, if applicable. Please Follow Up With: [facility] physical therapy When: Will need scheduled appointment to begin after 2-week follow-up Please Follow Up With: Marco A Saleh PA-C When: 06/24/18 @ 3:45 pm
[2018-06-11] MEDS: Aspirin 325 MG Tablet PO (07:54)
[2018-06-11] MEDS: metFORMIN HCl 1,000 MG Tablet 1000 MG PO (07:54)
[2018-06-11 08:01] VITALS: BP 159/79; PULSE 66; RESP 16; TEMP 36.6; O2SAT 96
[2018-06-11] MEDS: Famotidine 20 MG Tablet PO (08:03)
[2018-06-11] MEDS: FLUoxetine 20 MG Capsule PO (08:03)
--- NOTE | 2018-06-11 10:00 | CASEMGMT ---
Patient has order in for discharge today. ASH ALFREDO called [facility] and spoke with Marisela regarding IV ATB setup for at home. Marisela stated IV ATB were ready, but were still working on setting up HHC. ASH ALFREDO updated Marisela that CM would contact [facility] to see if they could accept patient if contracted through [facility]. ASH ALFREDO called [facility] and they are able to see patient and can start care this evening with next dose due at 1999. ASH ALFREDO updated Marisela at [facility] and they are able to deliver IV ATB by 1999 to patient's home. ASH ALFREDO updated patient regarding IV ATB and HHC setup. Floor nurse updated. CM will continue to follow this patient and plan for a safe discharge.
[2018-06-11 11:46] LABS: Bedside Glucose 128 mg/dL (70-110)
--- NOTE | 2018-06-11 14:22 | PCM.PROGNOTE ---
Patient Problems: Active and Suspected Problems (Last Updated 04/02/18 @ 11:29 by Estefania Cook) Infection of prosthetic shoulder joint (Acute) Subjective: Chief complaint: Follow-up after consultation for postoperative medical management. Patient seen and examined. No acute events overnight. Left shoulder pain is well controlled. She has no specific symptoms. Denies chest pain or shortness of breath. Her vital signs are stable. - Physical Exam General: Alert, Oriented x3, Cooperative, No apparent distress HEENT: Atraumatic, PERRLA, EOMI, Normocephalic Oral: Moist Mucosa, No Gingival or Mucosal Lesions/ Ulcerations Neck: Supple, No JVD, Negative Carotid Bruits, Trachea Midline, Thyroid Normal Size and Texture Lungs: Clear to auscultation, No rhonchi, No wheeze, No rales, Diminished Cardiovascular: Regular rate, Regular Rhythm, Normal S1, Normal S2, PMI Normal Abdomen: Bowel Sounds Present, Soft, Non Tender, Non-Distended, No Hepato-splenomegaly, Obese Extremities: No clubbing, No cyanosis, No edema Skin: No rashes, No breakdown Lymphatic: No Cervical, Supraclavicular, or Inguinal Adenopathy Neurological: Cranial nerves II-XII grossly intact, Neuro grossly intact Psych/Mental Status: Normal Affect, Appropriate Vital Signs Temp Pulse Resp BP Pulse Ox 97.9 F 66 16 159/79 H 96 06/11/18 08:01 06/11/18 08:01 06/11/18 08:01 06/11/18 08:01 06/11/18 08:01 Oxygen Flow Rate (L/min) 2 Oxygen Delivery Method Room Air Weight: 307 lb 1.663 oz Body Mass Index (BMI) 52.7 Finger Stick Blood Glucose 112 Intake and Output for Last 24 Hours 06/09/18 06/10/18 06/11/18 23:59 23:59 23:59 Intake Total 1999 3822 / 3822 1465 / 1465 Output Total 2575 / 2575 1900 / 1900 Balance 1999 1247 / 1247 -435 / -435 Microbiology Past 72 Hours 06/09/18 15:35 Gram Stain - Final Tissue - Shoulder Wound Culture - Final Staphylococcus epidermidis 06/09/18 15:35 Gram Stain - Final Tissue - Shoulder Wound Culture - Preliminary No growth-Final to follow 06/09/18 15:35 Gram Stain - Final Tissue - Shoulder Wound Culture - Preliminary No growth-Final to follow 06/09/18 15:35 Gram Stain - Final Tissue - Shoulder Wound Culture - Preliminary No growth-Final to follow POC Glucose 06/11/18 06/11/18 06/10/18 11:37 06:51 22:29 POC Glucose 128 H 126 H 150 H 06/10/18 16:23 POC Glucose 125 H Medical Necessity - Tobacco Use Smoking Status: Never smoker Assessment/Plan All Active Problems (Last Updated 04/02/18 @ 11:29 by Estefania Cook) Infection of prosthetic shoulder joint (Acute) This is a 62 years old female patient admitted for infected left total shoulder replacement, underwent irrigation debridement and exchange of the glenopsphere and humeral baseplate and I am seeing this patient in consultation for postoperative medical management. 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 Postoperative day 2. Her vital signs are stable, left shoulder pain is well controlled. She is on OxyIR as needed for pain as well as Tylenol. She is on IV vancomycin. Routine blood work was unremarkable. Orthopedic surgery is managing. Wound culture revealed staph epidermidis that was resistant to oxacillin. Plan is to discharge patient on IV vancomycin. From medical standpoint, patient is stable to be discharged to home. No changes to her chronic home medications. #2 recent history of abnormal EKG/indeterminate troponin. On March,, patient was admitted for reverse left shoulder total replacement and during that admission, she was found to have abnormal EKG and borderline elevated troponin. At that time, cardiology consulted, 2D echocardiogram revealed ejection fraction of 65%, stage II diastolic dysfunction and RVSP of 36. Supposed to have stress test done as outpatient with follow-up with cardiology. During this admission, she denies any chest pain or shortness of breath. Recommend follow-up with cardiology as outpatient. #3 type 2 diabetes mellitus: Blood sugar stable, continue metformin, insulin sliding scale. #4 hypothyroidism: Continue levothyroxine. #5 depression: Continue Prozac. #6 DVT prophylaxis: She is on full dose aspirin. This note was generated with [employer] software. It may contain incorrect words, spelling, and punctuation that were not noted in checking the note before signing. Code Visit Inpatient E&M: 76882 Subs Hosp L2
--- NOTE | 2018-06-11 14:52 | PN.ID_ITS ---
Patient Problems: Active and Suspected Problems (Last Updated 06/11/18 @ 14:23 by Opal Peraza MD) Infection of prosthetic shoulder joint (Acute) Subjective: Feeling better, no fever, shoulder pain controlled, no n/v/d. Picc in place. - Physical Exam General: Alert, Cooperative, No apparent distress Lungs: Clear to auscultation, Normal air movement Cardiovascular: Regular rate, Regular Rhythm Abdomen: Soft, Non Tender, Non-Distended Skin: Incision - L shoulder bandaged. Vital Signs Temp Pulse Resp BP Pulse Ox 97.9 F 66 16 159/79 H 96 06/11/18 08:01 06/11/18 08:01 06/11/18 08:01 06/11/18 08:01 06/11/18 08:01 Oxygen Flow Rate (L/min) 2 Oxygen Delivery Method Room Air Weight: 139.3 kg Body Mass Index (BMI) 52.7 Finger Stick Blood Glucose 112 Intake and Output for Last 24 Hours 06/09/18 06/10/18 06/11/18 23:59 23:59 23:59 Intake Total 1999 3822 / 3822 1465 / 1465 Output Total 2575 / 2575 1900 / 1900 Balance 1999 1247 / 1247 -435 / -435 Microbiology Past 72 Hours 06/09/18 15:35 Gram Stain - Final Tissue - Shoulder Wound Culture - Final Staphylococcus epidermidis 06/09/18 15:35 Gram Stain - Final Tissue - Shoulder Wound Culture - Preliminary No growth-Final to follow 06/09/18 15:35 Gram Stain - Final Tissue - Shoulder Wound Culture - Preliminary No growth-Final to follow 06/09/18 15:35 Gram Stain - Final Tissue - Shoulder Wound Culture - Preliminary No growth-Final to follow POC Glucose 06/11/18 06/11/18 06/10/18 11:37 06:51 22:29 POC Glucose 128 H 126 H 150 H 06/10/18 16:23 POC Glucose 125 H Medical Necessity - Tobacco Use Smoking Status: Never smoker Route of nutrition/ use of supplements: [] Nutritional Intake: [] IV Site: [] Jang Catheter: [] - Assessment/Plan Antibiotics: [] Assessment/Plan: [] MRSE L shoulder PJI - now s/p OR 06/09/[address] Sorto. Aspiration cx 06/07/18 with MRSE. Picc in place for planned 6 weeks of iv vanc, stop date 07/21/18, weekly bmp, cbc, esr, and vanc trough. ID followup with me in 2-3 weeks. After course of iv abx, plan on 12 months of po doxy. Will follow, thank you, d/w case preparer and liner
[2018-06-11 15:16] VITALS: BP 159/113; PULSE 95; RESP 18; TEMP 36.6; O2SAT 97
== END 2018-06-11 16:04 | disposition home health service (06) | DRG 483 ==
PROVIDERS: Anesthesiology; Hospitalist; Admitting Provider Specialist; Family Provider Internal Medicine; PCP Internal Medicine; Referring Provider Specialist; Visit Provider Specialist
PROC: 0JDF0ZZ Extraction of Left Upper Arm Subcutaneous Tissue and Fascia, Open Approach (ICD-10-PCS; principal; 2018-06-09 12:30)
DX: T84.59XA Infection and inflammatory reaction due to other internal joint prosthesis, initial encounter (principal); B95.62 Methicillin resistant Staphylococcus aureus infection as the cause of diseases classified elsewhere; Z96.612 Presence of left artificial shoulder joint; K21.9 Gastro-esophageal reflux disease without esophagitis; E11.9 Type 2 diabetes mellitus without complications; F41.9 Anxiety disorder, unspecified; E03.9 Hypothyroidism, unspecified; G47.33 Obstructive sleep apnea (adult) (pediatric); F32.9 Major depressive disorder, single episode, unspecified; R74.8 Abnormal levels of other serum enzymes; R94.5 Abnormal results of liver function studies; R94.31 Abnormal electrocardiogram [ECG] [EKG]; R79.89 Other specified abnormal findings of blood chemistry; Z79.84 Long term (current) use of oral hypoglycemic drugs; Z79.82 Long term (current) use of aspirin; Z79.899 Other long term (current) drug therapy
CPT/HCPCS: 36415; 36569; 80048; 80076; 82962; 83036; 84443; 85027; 85610; 85730; 87015; 87070; 87075; 87077; 87102; 87116; 87186; 87205; 87206; 87641; 93005; 97166; 97802; C1776; J7040; J7120; A4216; J2405

== ENCOUNTER 2018-06-18 22:03 | Emergency (ER) | payer OTHER, SELFPAY ==
[2018-06-09 18:59] VITALS: BMI 52.7
[2018-06-18 22:05] VITALS: BP 170/97; PULSE 95; RESP 20; TEMP 36.6; O2SAT 95; BMI 54.8
--- NOTE | 2018-06-18 22:40 | ED.DCSUM_ITS ---
- ER Visit Summary Date of Service: 06/18/18 Chief Complaint: [] Postop wound check. History of Present Illness: The patient is a 62 F she stated she started having some increased pain in her left shoulder this morning. Came in for further evaluation. She had an infected prosthetic with MR AGUILAR and is on intravenous vancomycin twice a day. Patient will be on this for 6 weeks until July 21. She [address] Dr[address] Levine who is on-call for her family doctor who told her to come in for further evaluation. No drainage. She is on Tylenol and oxycodone. Physical Examination: [] Vital signs reviewed General: Well-nourished well-developed Head: Normocephalic atraumatic Eyes: Pupils equal round and reactive to light extraocular movements intact ENT: TMs clear no hemotympanum no trauma Neck: Nontender full range of motion Cardiovascular: Regular rate rhythm no murmurs normal S1-S2 Respiratory: No distress clear to auscultation bilaterally chest nontender Abdomen: Soft nontender nondistended normal bowel sounds no masses Back: Nontender no CVA tenderness Extremities: Postop surgical scar is approximately 12 inches. On the inferior portion she has some irritation from the stitches. No cellulitis. No drainage. Her wound looks well. Just on the inferior lateral portion she has a very slight boggy area. It is small. Perhaps dime sized. Skin: Normal color no trauma Neuro alert oriented cranial nerves II through XII intact normal strength sensation reflexes Test Results: [] Emergency Department Course and Treatment: [] Discussed with Dr. Levine. At this time she is on vancomycin. I have a low suspicion for infection again. There is no cellulitis. I have a low suspicion she has an abscess in this area that is slightly softer than the other regions around her wound. Because aspiration with Dr. Levine. We decided to hold off at this time as her wound does not appear infected at all. She will follow-up with Dr. Sorto on Thursday morning. She will return if she develops fevers. I do not think she needs lab work. Treatment Plan: [] Disposition: [] Impression: [] Postop wound check This note was generated with [employer] software. It may contain incorrect words, spelling, and punctuation that were not noted in review of the chart prior to signing ED Disposition - Plan for ED Patient: Referrals: Diana Martinez DO [Primary Care Provider] -
--- NOTE | 2018-06-18 22:48 | ED.DEP ---
ED Disposition - Plan for ED Patient: Disposition: Home or Assisted Living Instructions: ED Post Op Pain Referrals: Diana Martinez DO [Primary Care Provider] - Eduardo Sorto MD [STAFF PHYSICIAN] -
[2018-06-18 23:04] VITALS: BP 160/80; PULSE 72; RESP 16; O2SAT 99
== END 2018-06-18 23:05 | disposition home or self-care (01) ==
LOC: ED 22:58
PROVIDERS: Emergency Provider Emergency Medicine; Family Provider Internal Medicine; PCP Internal Medicine
DX: Z48.01 Encounter for change or removal of surgical wound dressing (principal); M25.512 Pain in left shoulder; G89.18 Other acute postprocedural pain; Z96.612 Presence of left artificial shoulder joint; E11.9 Type 2 diabetes mellitus without complications; F41.9 Anxiety disorder, unspecified; E66.9 Obesity, unspecified; Z68.43 Body mass index [BMI] 50.0-59.9, adult; Z79.82 Long term (current) use of aspirin; Z79.899 Other long term (current) drug therapy
CPT/HCPCS: 99282

== ENCOUNTER 2018-06-20 17:26 | Emergency (ER) | payer OTHER, SELFPAY ==
[2018-06-20 17:27] VITALS: BP 188/81; PULSE 73; RESP 18; TEMP 36.7; O2SAT 97; BMI 54.0
[2018-06-20] MEDS: Morphine 4 MG/ML Syringe IM (18:41)
--- NOTE | 2018-06-20 19:05 | RAD_ITS ---
STUDY: X-RAY - LEFT SHOULDER REASON FOR EXAM: Female, 62 years old. Increasing pain and swelling. TECHNIQUE: 2 view(s) of the shoulder. COMPARISON: 03/10/2018. FINDINGS: There is a left shoulder arthroplasty. There is a 6.8 cm elongated bone density seen behind the proximal humerus, this represents a displaced fracture or heterotopic soft tissue bone cannot be determined. There now appear to be lucency surrounding the humeral shaft suggestive of loosening. IMPRESSION: Probable loosening of the humeral prosthesis. Electronically Signed: Yimi Yung MD at 20:00 EST , Service support , RAD/Shoulder min 2 Views
--- NOTE | 2018-06-20 19:12 | ED.DCSUM_ITS ---
- ER Visit Summary Date of Service: 06/20/18 Chief Complaint: Left shoulder pain History of Present Illness: The patient is a 62 F who presents with left shoulder pain and swelling that became worse over the past 3 days. Patient was seen here 3 days ago. Patient states she was instructed to follow-up with her orthopedic surgeon at that time. Patient had a recent reverse total shoulder replacement done by Dr. Sorto. Patient states the swelling has gotten worse over the past 3 days. She states her pain is worse with movement. Patient states she feels like there is a pressure in her shoulder. Patient denies any paresthesias or weakness. Patient denies any fevers or chills. Physical Examination: Vital signs are stable. Patient is afebrile. Patient is in no acute distress. Skin is warm and dry. The incision is intact. There is no erythema. There is no warmth. There is no discharge or drainage. There is some mild tenderness along the incision and throughout the left shoulder. Range of motion was limited in all motions of the left shoulder secondary to pain. Radial pulses are equal bilateral. Sensation was intact to light touch in the radial, median, and ulnar areas. Strength is 5/5 in the radial, median, and ulnar areas. Test Results: X-rays of the left shoulder were obtained. There is some loosening of the humeral prosthesis. This was interpreted by the radiologist. CBC, basic metabolic profile, sed rate, and CRP were obtained. White blood cell count was normal. Basic metabolic profile does not show any acute abnormalities. Sed rate was slightly elevated at 45 which is only slightly increased from previous result. CRP was also elevated but was only slightly increased from previous result. Emergency Department Course and Treatment: Patient was given an injection of mor phine here. Patient felt better on reevaluation. Patient requested another injection of morphine prior to discharge. Patient was given a repeat dose of morphine. Case was discussed with Dr. Levine who is covering for Dr. Sorto. He states the patient is okay to go home and call Dr. Sorto tomorrow for follow-up appointment. Recent and family understood and were agreeable with the plan. All questions were answered. Disposition: Discharge home Impression: Infection of left shoulder prosthesis This note was generated with [employer] software. It may contain incorrect words, spelling, and punctuation that were not noted in review of the chart prior to signing ED Disposition - Plan for ED Patient: Disposition: Home or Assisted Living Diagnosis: Infection of prosthetic shoulder joint Instructions: ED Shoulder Pain [facility] Referrals: Diana Martinez DO [Primary Care Provider] -
[2018-06-20 19:15] LABS: Absolute Lymphocyte Count 2.15 X10^3/ul (0.83-4.51); Absolute Neutrophil Count 5.1 X10^3/uL (2.0-7.7); Basophil# 0.03 X10^3/uL; Basophil% 0.3 % (0-1); Eosinophil# 1.04 X10^3/uL; Eosinophils% 11.7 % (0-5); Hematocrit 36.7 % (37-47); Hemoglobin 11.7 g/dl (12.0-15.0); Lymphocyte # 2.15 X10^3/ul (4.0); Lymphocyte % 24.3 % (19-41); Mean Corp Hgb Conc 31.9 g/gl (32-36); Mean Corpuscular Hgb 29.9 pg (27.0-32.0); Mean Corpuscular Volume 93.9 fL (81-99); Mean Platelet Vol. 9.2 fl (6.2-12.0); Monocyte# 0.57 X10^3/uL; Monocyte% 6.4 % (0-10); Neutrophil # 5.05 X10^3/uL (2.7-7.7); Neutrophil % 57.1 % (47-70); Platelet Count 247 K/mm3 (150-450); RBC Distribution Width CV 13.6 % (11.6-14.6); RBC Distribution Width SD 46.1 fl (35.1-43.9); Red Blood Count 3.91 M/mm3 (4.2-5.4); White Blood Count 8.9 K/mm3 (4.4-11.0)
[2018-06-20 19:30] LABS: POSITIVE COUNT NO; POSITIVE DIFFERENTIAL NO; POSITIVE MORPHOLOGY NO
[2018-06-20 19:37] LABS: Anion Gap 7 (5-15); BUN 12 mg/dL (7-18); BUN/Creat Ratio 13.5 RATIO (10-20); Calcium,Total 8.2 mg/dL (8.5-10.1); Chloride 110 mmol/L (98-107); Creatinine, Serum 0.89 mg/dL (0.55-1.02); EST Glomerular Filtration Rate 69 mL/min (>60); Est Glom Filt Rate - Afr Amer 83 mL/min (>60); Estimated Creatinine Clearance 58.05 ml/min; Glucose 137 mg/dL (74-106); Sodium Level 143 mmol/L (136-145)
[2018-06-20 19:49] LABS: Erythrocyte Sedimentation Rate 45 mm/hr (0-30)
[2018-06-20] MEDS: Morphine 4 MG/ML Syringe IV (21:20)
[2018-06-20 21:24] VITALS: PULSE 76; RESP 18; O2SAT 99
== END 2018-06-20 21:26 | disposition home or self-care (01) ==
PROVIDERS: Emergency Provider Emergency Medicine; Family Provider Internal Medicine; PCP Internal Medicine
DX: T84.59XA Infection and inflammatory reaction due to other internal joint prosthesis, initial encounter (principal); E03.9 Hypothyroidism, unspecified; E11.9 Type 2 diabetes mellitus without complications; F32.9 Major depressive disorder, single episode, unspecified; F41.9 Anxiety disorder, unspecified; Z79.82 Long term (current) use of aspirin; Z79.84 Long term (current) use of oral hypoglycemic drugs
CPT/HCPCS: 73030; 80048; 85025; 85652; 86140; 96372; 96374; 99282; A4216

== ENCOUNTER → 2018-06-21 10:04 | Outpatient (CLI) | payer OTHER, SELFPAY ==
[2018-06-20 17:27] VITALS: BMI 54.0
[2018-06-21 11:18] LABS: Synovial Fld Mononuclear WBC % 33.8 %; Synovial Fld Polynuclear WBC % 66.2 %
[2018-06-21 11:31] LABS: AUTO B FLUID DILUENT BKGD CT WBC <0.1 RBC <0.01 (W<.1,R<.01)
[2018-06-21 11:32] LABS: Appearance /Synovial Fluid Cloudy (CLEAR); Color / Synovial Fluid Red (Pale Yellow); Source / Synovial Fluid LEFT SHOULDER
[2018-06-21 12:58] LABS: Body Fluid QC Type(s) BF1Q; Lymph 13 %; Monocyte /Synovial Fluid 13 %; Neutrophil 23 % (0-25); Other Cell /Synovial Fluid 51 %
[2018-06-22 14:00] LABS: Pathologist Comment Reviewed
== END ==
PROVIDERS: Family Provider Internal Medicine; PCP Internal Medicine; Referring Provider Specialist; Visit Provider Specialist
DX: T84.59XD Infection and inflammatory reaction due to other internal joint prosthesis, subsequent encounter (principal)
CPT/HCPCS: 87015; 87070; 87075; 87101; 87116; 87205; 87206; 89050; 89051

== ENCOUNTER → 2018-06-23 09:44 | Outpatient (CLI) | payer OTHER, SELFPAY ==
[2018-06-20 17:27] VITALS: BMI 54.0
[2018-06-23 09:57] VITALS: BP 190/113; PULSE 70; RESP 18; TEMP 35.9; O2SAT 99; BMI 52.3
[2018-06-23] MEDS: Alteplase 2 MG/2 ML Vial IV (10:36)
[2018-06-23 12:06] LABS: Vancomycin, Trough Level 13.1 ug/mL (5.0-15.0)
[2018-06-23 19:16] LABS: Xtra Tube EP Lab EXTRA TUBE
== END ==
PROVIDERS: Family Provider Internal Medicine; PCP Internal Medicine; Referring Provider Internal Medicine Infectious Disease; Visit Provider Internal Medicine Infectious Disease
DX: Z45.2 Encounter for adjustment and management of vascular access device (principal)
CPT/HCPCS: 36415; 36593; 80202; J2997; A4216

== ENCOUNTER 2018-06-28 10:13 | Outpatient (RCR) | payer OTHER, SELFPAY ==
[2018-06-09 18:59] VITALS: BMI 52.7
[2018-06-14 13:43] LABS: Hematocrit 35.6 % (37-47); Hemoglobin 11.3 g/dl (12.0-15.0); Mean Corp Hgb Conc 31.7 g/gl (32-36); Mean Corpuscular Hgb 30.3 pg (27.0-32.0); Mean Corpuscular Volume 95.4 fL (81-99); Mean Platelet Vol. 10.1 fl (6.2-12.0); Platelet Count 254 K/mm3 (150-450); RBC Distribution Width CV 13.6 % (11.6-14.6); RBC Distribution Width SD 47.4 fl (35.1-43.9); Red Blood Count 3.73 M/mm3 (4.2-5.4); White Blood Count 8.6 K/mm3 (4.4-11.0)
[2018-06-14 13:44] LABS: Erythrocyte Sedimentation Rate 37 mm/hr (0-30); Scan Indicated on CBC? Y/N NO
[2018-06-14 13:57] LABS: Anion Gap 8 (5-15); BUN 9 mg/dL (7-18); BUN/Creat Ratio 10.9 RATIO (10-20); Chloride 106 mmol/L (98-107); Creatinine, Serum 0.83 mg/dL (0.55-1.02); EST Glomerular Filtration Rate 75 mL/min (>60); Est Glom Filt Rate - Afr Amer 90 mL/min (>60); Glucose 132 mg/dL (74-106); Potassium 3.7 mmol/L (3.5-5.1); Sodium Level 141 mmol/L (136-145)
[2018-06-14 14:30] LABS: Vancomycin, Trough Level 15.2 ug/mL (5.0-15.0)
[2018-06-28 10:59] LABS: Anion Gap 8 (5-15); BUN 14 mg/dL (7-18); BUN/Creat Ratio 14.3 RATIO (10-20); Calcium,Total 8.5 mg/dL (8.5-10.1); Chloride 102 mmol/L (98-107); Creatinine, Serum 0.98 mg/dL (0.55-1.02); EST Glomerular Filtration Rate 61 mL/min (>60); Est Glom Filt Rate - Afr Amer 74 mL/min (>60); Glucose 175 mg/dL (74-106); Potassium 4.2 mmol/L (3.5-5.1); Sodium Level 135 mmol/L (136-145)
[2018-06-28 11:00] LABS: Hematocrit 35.9 % (37-47); Hemoglobin 11.6 g/dl (12.0-15.0); Mean Corp Hgb Conc 32.3 g/gl (32-36); Mean Corpuscular Hgb 30.9 pg (27.0-32.0); Mean Corpuscular Volume 95.7 fL (81-99); Mean Platelet Vol. 9.7 fl (6.2-12.0); Platelet Count 220 K/mm3 (150-450); RBC Distribution Width CV 13.4 % (11.6-14.6); RBC Distribution Width SD 44.3 fl (35.1-43.9); Red Blood Count 3.75 M/mm3 (4.2-5.4); White Blood Count 8.1 K/mm3 (4.4-11.0)
[2018-06-28 11:05] LABS: Scan Indicated on CBC? Y/N NO
[2018-06-28 11:08] LABS: Erythrocyte Sedimentation Rate 39 mm/hr (0-30)
== END 2018-07-01 23:59 ==
LOC: HHLAB 10:13
PROVIDERS: Family Provider Internal Medicine; PCP Internal Medicine; Referring Provider Internal Medicine Infectious Disease; Visit Provider Internal Medicine Infectious Disease
DX: Z96.612 Presence of left artificial shoulder joint (principal)
CPT/HCPCS: 80048; 80202; 85027; 85652

== ENCOUNTER 2018-06-28 11:51 | Inpatient (IN) | payer OTHER, SELFPAY ==
[2018-06-23 09:57] VITALS: BMI 52.3
[2018-06-28] VITALS (15 sets, daily range): BP systolic 138–189; BP diastolic 67–108; PULSE 74–107; RESP 17–26; TEMP 36.4–37.1; O2SAT 93–98; BMI 55.7; BMI 53.4
--- NOTE | 2018-06-28 12:16 | ED.VISSUMM ---
- ER Visit Summary Date of Service: 06/28/18 Chief Complaint: Needs wound VAC History of Present Illness: The patient is a 62 F presenting stating that she needs a wound VAC. Patient was seen by Dr. Sorto this morning. She was sent to the wound center to have a wound VAC placed on her left shoulder. She has a history of left total shoulder replacement March 2018. She states that this then became infected. She had a washout on June 09. Since that time she has been on vancomycin through a PICC line. Today she noticed increasing drainage from the wound. She went to see Dr. Sorto and he sent her to the wound center. Wound center sent her to the ED. She denies fever or other complaints. Physical Examination:. Vitals are stable. Patient is afebrile. Alert no acute distress. HEENT exam is unremarkable. Neck is supple. Lungs are clear and equal bilaterally. Heart is regular rate and rhythm. Abdomen is soft nontender nondistended. Extremities left shoulder incision with serosanguineous drainage, unable to lift her arm off the bed. Skin is warm and dry. No focal neurologic deficit. Remainder of exam is unremarkable. Emergency Department Course and Treatment: CBC unremarkable. Chemistries show glucose 189, creatinine 1.15. ESR 31, CRP 27.2. Left shoulder x-ray showed there is evidence of anterior and superior dislocation of the prosthetic shoulder joint. Soft tissue swelling. Discussed with Dr. Sorto. Attempted closed reduction with propofol. Repeat x-ray shows continued dislocation. Discussed with Dr. Sorto and Dr. Hicks. Patient will be admitted. Disposition: Admission Impression: Left shoulder infection, left shoulder dislocation This note was generated with [employer] dictation software. It may contain incorrect words, spelling, and punctuation that were not noted in review of the chart prior to signing ED Disposition - Plan for ED Patient: Referrals: Diana Martinez DO [Primary Care Provider] -
--- NOTE | 2018-06-28 12:19 | RAD_ITS ---
STUDY: X-RAY - LEFT SHOULDER REASON FOR EXAM: Female, 62 years old. Possible infection. TECHNIQUE: 4 view(s) of the shoulder. COMPARISON: Comparison is made with prior examination dated June 20, 2018. FINDINGS: The patient is status post left reverse shoulder replacement. There now is evidence of anterior slightly superior dislocation of the prosthetic shoulder joint. There is degenerative arthrosis of the acromioclavicular joint without inferior osseous spur formation. Normal acromion. Normal humeral head and visualized proximal humerus. Soft tissue swelling. Normal visualized pulmonary apex. RAD/Shoulder min 2 Views IMPRESSION: There is evidence of anterior and superior dislocation of the prosthetic shoulder joint. Soft tissue swelling. Electronically Signed: Edgar Robert MD at 13:59 EST , Service support ,
[2018-06-28 12:59] LABS: Absolute Lymphocyte Count 1.73 X10^3/ul (0.83-4.51); Absolute Neutrophil Count 5.8 X10^3/uL (2.0-7.7); Basophil# 0.03 X10^3/uL; Basophil% 0.3 % (0-1); Hematocrit 39.6 % (37-47); Hemoglobin 12.8 g/dl (12.0-15.0); Lymphocyte # 1.73 X10^3/ul (4.0); Lymphocyte % 19.5 % (19-41); Mean Corp Hgb Conc 32.3 g/gl (32-36); Mean Corpuscular Hgb 30.7 pg (27.0-32.0); Mean Platelet Vol. 9.5 fl (6.2-12.0); Monocyte# 0.45 X10^3/uL; Monocyte% 5.1 % (0-10); Neutrophil # 5.83 X10^3/uL (2.7-7.7); Neutrophil % 65.9 % (47-70); Platelet Count 234 K/mm3 (150-450); RBC Distribution Width CV 13.4 % (11.6-14.6); RBC Distribution Width SD 44.2 fl (35.1-43.9); Red Blood Count 4.17 M/mm3 (4.2-5.4); White Blood Count 8.9 K/mm3 (4.4-11.0)
[2018-06-28 13:00] LABS: Anion Gap 11 (5-15); BUN 14 mg/dL (7-18); BUN/Creat Ratio 12.2 RATIO (10-20); Calcium,Total 8.8 mg/dL (8.5-10.1); Chloride 103 mmol/L (98-107); Creatinine, Serum 1.15 mg/dL (0.55-1.02); EST Glomerular Filtration Rate 51 mL/min (>60); Est Glom Filt Rate - Afr Amer 62 mL/min (>60); Estimated Creatinine Clearance 43.03 ml/min; Glucose 189 mg/dL (74-106); Potassium 4.1 mmol/L (3.5-5.1); Sodium Level 138 mmol/L (136-145)
[2018-06-28 13:11] LABS: POSITIVE COUNT NO; POSITIVE DIFFERENTIAL NO; POSITIVE MORPHOLOGY NO
[2018-06-28 13:13] LABS: Erythrocyte Sedimentation Rate 31 mm/hr (0-30)
[2018-06-28 13:44] LABS: Vancomycin, Trough Level 14.2 ug/mL (5.0-15.0)
[2018-06-28] MEDS: Propofol 200 MG/20 ML Vial IV BOLUS (15:55)
--- NOTE | 2018-06-28 16:07 | RAD_ITS ---
STUDY: X-RAY - LEFT SHOULDER REASON FOR EXAM: Female, 62 years old. Post reduction TECHNIQUE: 2 view(s) of the shoulder. COMPARISON: June 28 2018 FINDINGS: Reverse arthroplasty appears to be dislocated superiorly. There appears to be a fracture of the glenoid posteriorly. Normal acromioclavicular joint. Normal acromion. The soft tissue structures are unremarkable. Normal visualized pulmonary apex. RAD/Shoulder min 2 Views IMPRESSION: Persistent arthroplasty dislocation and probable fracture posterior glenoid. Electronically Signed: Lawrence Garland MD at 16:56 EST , Service support ,
--- NOTE | 2018-06-28 16:46 | NURSING ---
MED SURG LT SHOULDER INFECTION ADRIANA
--- NOTE | 2018-06-28 17:06 | PCM.PROGNOTE ---
Subjective: Pt being seen in consult for Dr. Sorto for left dislocated septic shoulder. Her C nurse noticed this morning that it had copious clear fluid and blood draining from the surgical sight. She was sent to the wound clinic who sent to ER. Shoulder is suspected to be septic. XRay showed swelling and dislocation. She thinks she dislocated it on in the office when she had a severe muscle spasm. It has had severe pain since and she noticed a bulge. She denies fevers or chills. She previously had post op EKG changes. She was supposed to have a stress test with Dr. Taylor Jun 09 however this is the day she first had infection and had to go have the left shoulder cleaned out with Dr. Sorto. Since then she has been on Home Vancomycin and has had C. - Physical Exam General: Alert, Oriented x3, Cooperative HEENT: Atraumatic, PERRLA, EOMI, Normocephalic Neck: Supple, No JVD, Negative Carotid Bruits Lungs: Clear to auscultation, Normal air movement Cardiovascular: Regular rate, No murmurs Abdomen: Bowel Sounds Present, Soft, Non Tender, Obese Extremities: No edema, Capillary Refill Less than 3 Seconds Skin: No rashes, No breakdown Musculoskeletal: No Tenderness to Palpation of Joints or Extremities Neurological: Cranial nerves II-XII grossly intact Psych/Mental Status: Normal Affect, Appropriate, Alert and oriented to time, place, person, mood and affect Vital Signs Temp Pulse Resp BP Pulse Ox 98.1 F 77 17 160/89 H 98 06/28/18 17:00 06/28/18 17:00 06/28/18 17:00 06/28/18 17:00 06/28/18 17:00 Oxygen Flow Rate (L/min) [3] 2 Oxygen Flow Rate (L/min) [2] 2 Oxygen Flow Rate (L/min) [1 ( 2 Initial Baseline)] Oxygen Flow Rate (L/min) 2 Oxygen Delivery Method [3] Nasal Cannula Oxygen Delivery Method [2] Nasal Cannula Oxygen Delivery Method [1 ( Nasal Cannula Initial Baseline)] Oxygen Delivery Method Room Air Weight: 314 lb 9.594 oz Body Mass Index (BMI) 55.7 Finger Stick Blood Glucose 112 Laboratory Tests Past 24 Hrs 06/28/18 06/28/18 06/28/18 12:30 12:30 13:00 WBC 8.9 RBC 4.17 L Hgb 12.8 Hct 39.6 MCV 95.0 MCH 30.7 MCHC 32.3 RDW 13.4 RDW Differential 44.2 H Plt Count 234 MPV 9.5 Immature Gran % (Auto) 0.200 Neut % (Auto) 65.9 Lymph % (Auto) 19.5 [place] % (Auto) 5.1 Eos % (Auto) 9.0 H Baso % (Auto) 0.3 Absolute Neuts (auto) 5.8 Absolute Lymphs (auto) 1.73 Total Counted Not Reportable ESR 31 H Sodium 138 Potassium 4.1 Chloride 103 Carbon Dioxide 24.0 Anion Gap 11 BUN 14 Creatinine 1.15 H Estim Creat Clear Calc 43.03 Est GFR (MDRD) Af Amer 62 Est GFR (MDRD) Non-Af 51 L BUN/Creatinine Ratio 12.2 Glucose 189 H Calcium 8.8 C-React Prot Ext Range 27.20 H Vancomycin Trough 14.2 Medical Necessity - Tobacco Use Smoking Status: Never smoker Assessment/Plan All Active Problems (Last Updated 06/11/18 @ 14:23 by Opal Peraza MD) Infection of prosthetic shoulder joint (Acute) 1. Left total shoulder repair, now septic + dislocated - continue vanc. Prior cultures with staph epidermidis - R to clinda, emycin, oxacillin. ID consult. Reculture. Afebrile no leukocytosis. Elevated CRP/ESR. To OR tomorrow. 2. Prior Post op EKG changes. Obtain EKG. Never had stress as o/p. Follows Dr. Taylor. 3. DMt2 with morbid obesity - hold metformin, SSI. Dietary eval 4. LUIS - compliant with home CPAP- will continue 5. Hx Hypothyroidism 6. Depression/Anxiety - home meds 7. HLD - statin therapy 8. HTN in ER - trend. Not on home meds, no hx htn. DVT ppx: per ortho Thank you for the opportunity to participate in the care of this patient. This patient was seen by Walter Pillai PA-C under the supervision of Doctor Fabiola.
--- NOTE | 2018-06-28 17:43 | EKG12_ITS ---
Test Reason : Blood Pressure : / mmHG Vent. Rate : 093 BPM Atrial Rate : 093 BPM P-R Int : 164 ms QRS Dur : 070 ms QT Int : 382 ms P-R-T Axes : 025 005 102 degrees QTc Int : 474 ms Normal sinus rhythm Nonspecific ST and T wave abnormality Prolonged QT Abnormal ECG Confirmed by AMMY BOOKER, WILLARD ([id number]), editor trade journal MAGEN NERI ([id number]) on 07/01/2018 4:00:25 PM Referred By: Eduardo Sorto Confirmed By:WILLARD GIMENEZ MD
[2018-06-28] MEDS: Ketorolac 15 MG/ML Vial IV (18:40)
--- NOTE | 2018-06-28 20:25 | PCM.RX.CS ---
Consult Pharmacy has been consulted to manage selected antiobiotic: Vancomycin Type of Consult: Follow-up Suspected Infection: Other Prior Doses of Antibiotics Received/Current Regimen: None while admitted- was on 1500mg IV Q12hrs via home health infusion. Labs: Sodium 138 mmol/L (136-145) 06/28/18 12:30 Potassium 4.1 mmol/L (3.5-5.1) 06/28/18 12:30 Chloride 103 mmol/L (98-107) 06/28/18 12:30 Carbon Dioxide 24.0 mmol/L (21.0-32.0) 06/28/18 12:30 Anion Gap 11 (5-15) 06/28/18 12:30 BUN 14 mg/dL (7-18) 06/28/18 12:30 Creatinine 1.15 mg/dL (0.55-1.02) H 06/28/18 12:30 Est GFR (MDRD) Af Amer 62 mL/min (>60) 06/28/18 12:30 Est GFR (MDRD) Non-Af 51 mL/min (>60) L 06/28/18 12:30 BUN/Creatinine Ratio 12.2 RATIO (10-20) 06/28/18 12:30 Glucose 189 mg/dL (74-106) H 06/28/18 12:30 Vancomycin Trough 14.2 ug/mL (5.0-15.0) 06/28/18 13:00 Weight used for dosin kg Estimated Creatinine Clearance: 43ml/min Goal Trough: 15-20 mcg/mL Pharmacy Plan for Drug Dosing: Pharmacy to monitor vancomycin dosing per [facility]OR[facility]. The patient was previously on vancomycin 1500mg IV Q12hrs from a previous admission for a shoulder infection per H/P. The patient's last dose of vancomycin was about 2130 per MS3 charge nurse who contacted the home health agency managing her care. The patient did have a vancomycin trough drawn while in ED, which resulted in a value of 14.2 (~16hrs from last administered dose). Per hospitalist, ID has been consulted who was following the patient from previous admission. Will plan on continuing the patient's current home dose, and will schedule a trough prior to the 4th dose of vancomycin administered in the hospital to get a more accurate trough result. Will continue to monitor patient. PLAN/RECOMMENDATIONS 1. Continue home dose of vancomycin 1500mg IV Q12hrs. Next dose 06/28/18 @2200 2. Trough scheduled 06/30/18 @0930, to get a more accurate trough result. 3. Pharmacy Service will continue to monitor and adjust dosing as required.
[2018-06-28] MEDS: 0.9% NaCl Peripheral Flush Adult/Peds IV ×3 (22:01→22:22)
[2018-06-28] MEDS: Atorvastatin Calcium 10 MG Tablet PO (22:14)
[2018-06-28] MEDS: 0.9% Normal Saline 1,000 ML 100 ML IV (22:15)
[2018-06-28 22:25] LABS: Bedside Glucose 149 mg/dL (70-110)
[2018-06-29] VITALS (13 sets, daily range): BP systolic 117–156; BP diastolic 70–104; PULSE 72–104; RESP 16–18; TEMP 36.2–36.9; O2SAT 93–99; BMI 53.4
[2018-06-29] MEDS: 0.9% NaCl Peripheral Flush Adult/Peds IV ×8 (00:15→10:04)
[2018-06-29] MEDS: Ketorolac 15 MG/ML Vial IV ×2 (02:27→11:33)
[2018-06-29] MEDS: Levothyroxine 125 MCG Tablet PO (05:38)
[2018-06-29 06:14] LABS: Absolute Lymphocyte Count 2.05 X10^3/ul (0.83-4.51); Absolute Neutrophil Count 4.2 X10^3/uL (2.0-7.7); Basophil# 0.05 X10^3/uL; Basophil% 0.7 % (0-1); Eosinophil# 0.83 X10^3/uL; Eosinophils% 10.9 % (0-5); Hematocrit 37.7 % (37-47); Lymphocyte # 2.05 X10^3/ul (4.0); Lymphocyte % 26.9 % (19-41); Mean Corp Hgb Conc 31.8 g/gl (32-36); Mean Corpuscular Hgb 30.3 pg (27.0-32.0); Mean Corpuscular Volume 95.2 fL (81-99); Mean Platelet Vol. 9.5 fl (6.2-12.0); Monocyte# 0.45 X10^3/uL; Monocyte% 5.9 % (0-10); Neutrophil # 4.23 X10^3/uL (2.7-7.7); Neutrophil % 55.5 % (47-70); Platelet Count 221 K/mm3 (150-450); RBC Distribution Width CV 13.3 % (11.6-14.6); RBC Distribution Width SD 44.2 fl (35.1-43.9); Red Blood Count 3.96 M/mm3 (4.2-5.4); White Blood Count 7.6 K/mm3 (4.4-11.0)
[2018-06-29 06:21] LABS: POSITIVE COUNT NO; POSITIVE DIFFERENTIAL NO; POSITIVE MORPHOLOGY NO
[2018-06-29 06:32] LABS: Anion Gap 11 (5-15); BUN 14 mg/dL (7-18); BUN/Creat Ratio 13.9 RATIO (10-20); Calcium,Total 8.5 mg/dL (8.5-10.1); Chloride 107 mmol/L (98-107); Creatinine, Serum 1.01 mg/dL (0.55-1.02); EST Glomerular Filtration Rate 59 mL/min (>60); Est Glom Filt Rate - Afr Amer 72 mL/min (>60); Estimated Creatinine Clearance 51.15 ml/min; Glucose 141 mg/dL (74-106); Potassium 4.4 mmol/L (3.5-5.1); Sodium Level 143 mmol/L (136-145)
[2018-06-29 06:36] LABS: Bedside Glucose 129 mg/dL (70-110)
--- NOTE | 2018-06-29 08:15 | PCA ---
pt off floor
[2018-06-29 08:39] LABS: Hemoglobin A1c 7.3 % (4.2-6.3)
[2018-06-29] MEDS: Famotidine 20 MG Tablet PO (09:14)
[2018-06-29] MEDS: Morphine 4 MG/ML Syringe IV (09:14)
--- NOTE | 2018-06-29 10:08 | STRESSREP_ITS ---
Stress Test Report Date: 06-29-18 Procedure: Pharmacologic stress nuclear imaging study Indications: Chest pain; preoperative cardiovascular evaluation Consent: Per the patient Procedure: The patient underwent pharmacologic (Regadenoson) evaluation with a peak heart rate of 90 beats per minute (56 percentile predicted maximal heart rate) and a peak blood pressure of 151/70 mmHg. The baseline ECG demonstrated Normal sinus rhythm; nonspecific T-wave abnormality . The peak pharmacologic ECG demonstrated no obvious ECG changes . There were no cardiac dysrhythmias pretest, during pharmacologic infusion, or recovery. There was no complaint of chest discomfort during pharmacologic infusion or recovery. The examination was discontinued secondary to completion of protocol. Impression: 1. Pharmacologic (Regadenoson) evaluation 2. Peak pharmacologic ECG with no obvious ECG changes . 3. There were no cardiac dysrhythmias pretest, during pharmacologic infusion, or recovery. 4. Nuclear images pending Myocardial perfusion imaging study: Technique: The patient was injected with 44.8 millicuries of technetium 99m Cardiolite and subsequently rest SPECT Cardiolite nuclear imaging was obtained in the horizontal long, vertical long, and short axis views. The patient underwent pharmacologic (Regadenoson) evaluation with a peak heart rate of 90 beats per minute (56 % percent predicted maximal heart rate) and a peak blood pressure of 151/70 mmHg. The patient was injected with 44.9 millicuries of technetium 99m Cardiolite and subsequently stress SPECT Cardiolite nuclear imaging was obtained in the horizontal long, vertical long, and short axis views. A gated Cardiolite study at peak stress was obtained. Interpretation: Rest and stress SPECT Cardiolite nuclear imaging status post realignment, normalization, and attenuation correction demonstrate relative uniform tracer uptake and myocardial perfusion appearing within normal limits . There is end systolic thickening and brightening. The gated Cardiolite study demonstrates myocardial thickening and inward wall motion. The reported LVEF is 74 %. Impression: 1. Rest and stress SPECT Cardiolite nuclear imaging demonstrate relative uniform tracer uptake and myocardial perfusion appearing within normal limits. 2. The gated Cardiolite study reports an LVEF of 74 %. This note was generated with [employer] software. It may contain incorrect words, spelling, and punctuation that were not noted in checking the note before signing.
--- NOTE | 2018-06-29 11:06 | PCA ---
pt off floor
--- NOTE | 2018-06-29 11:19 | PCM.HP.ID ---
Problem List (1) Infection of prosthetic shoulder joint Status: Acute Reason for Consult: shoulder infection Consulted by: Dr. Betancourt History of Present Illness: The patient is a 62 year old F with recent admit for L shoulder PJI, cx (+) DEREK, had debridement, discharged on iv vanc. Had been doing well, no issues with picc, no fever. Had aspiration done 06/21. Over past few days, had muscle spasms in shoulder followed by persistent significant pain. Yesterday AM, developed heavy serosanguinous drainage from inferior portion of anterior incision. No redness. Admitted, vanc continued, OR planned. Full ROS performed and neg except as noted above. - Medical History Past Medical History (Chronic Problems): Chronic Problems (Last Updated 06/11/18 @ 14:23 by Opal Peraza MD) Obstructive sleep apnea (Chronic) Wears CPAP Hypothyroidism (Chronic) Diabetes mellitus, type II (Chronic) Abnormal EKG (Chronic) Postop ekg changes along with elevated troponin 03/11/18 Allergies/Adverse Reactions: Allergies adhesive tape Allergy (Verified 06/28/18 11:52) BLISTERS/SCARS codeine Allergy (Verified 06/28/18 11:52) Shortness of breath Sulfa (Sulfonamide Antibiotics) Allergy (Verified 06/28/18 11:52) Rash Tetanus Vaccines and Toxoid [Tetanus Vaccines & Toxoid] Allergy (Verified 06/28/18 11:52) Swelling meperidine HCl [From Demerol] Adverse Reaction (Verified 06/28/18 11:52) Itching STERISTRIPS Allergy (Uncoded 06/28/18 11:52) BLISTERS/SCARS Home Medications: Ambulatory Orders Medication Instructions Recorded Fluoxetine [Prozac] 20 mg PO DAILY 06/05/14 Vancomycin IV 1,500 mg IV Q12H 40 Days #80 vial 06/10/18 Famotidine [Pepcid] 20 mg PO DAILY #12 tablet 06/11/18 Acetaminophen [Tylenol] 1,000 mg PO Q8H PRN PRN 06/28/18 Cholecalciferol (Vitamin D3) 10,000 unit PO DAILY 06/28/18 [Vitamin D3] Levothyroxine Sodium [Synthroid] 125 mcg PO DAILY 06/28/18 Metformin HCl [Metformin ER 1,000 mg PO DAILY 06/28/18 Osmotic] Simvastatin 20 mg PO QHS 06/28/18 - Social History SMOKING STATUS:: Never smoker Vital Signs Temp Pulse Resp BP Pulse Ox 97.8 F 73 18 151/95 H 98 06/29/18 02:22 06/29/18 02:22 06/29/18 02:22 06/29/18 02:22 06/29/18 02:22 Oxygen Flow Rate (L/min) [3] 2 Oxygen Flow Rate (L/min) [2] 2 Oxygen Flow Rate (L/min) [1 ( 2 Initial Baseline)] Oxygen Flow Rate (L/min) 2 Oxygen Delivery Method [3] Nasal Cannula Oxygen Delivery Method [2] Nasal Cannula Oxygen Delivery Method [1 ( Nasal Cannula Initial Baseline)] Oxygen Delivery Method Room Air Weight: 141.3 kg Body Mass Index (BMI) 53.4 Finger Stick Blood Glucose 112 Laboratory Tests Past 24 Hrs 06/28/18 06/28/18 06/28/18 12:30 12:30 12:30 WBC 8.9 RBC 4.17 L Hgb 12.8 Hct 39.6 MCV 95.0 MCH 30.7 MCHC 32.3 RDW 13.4 RDW Differential 44.2 H Plt Count 234 MPV 9.5 Immature Gran % (Auto) 0.200 Neut % (Auto) 65.9 Lymph % (Auto) 19.5 [place] % (Auto) 5.1 Eos % (Auto) 9.0 H Baso % (Auto) 0.3 Absolute Neuts (auto) 5.8 Absolute Lymphs (auto) 1.73 Total Counted Not Reportable ESR 31 H Sodium 138 Potassium 4.1 Chloride 103 Carbon Dioxide 24.0 Anion Gap 11 BUN 14 Creatinine 1.15 H Estim Creat Clear Calc 43.03 Est GFR (MDRD) Af Amer 62 Est GFR (MDRD) Non-Af 51 L BUN/Creatinine Ratio 12.2 Glucose 189 H Hemoglobin A1c Calcium 8.8 Magnesium 2.0 Troponin I C-React Prot Ext Range 27.20 H TSH Vancomycin Trough 06/28/18 06/28/18 06/28/18 13:00 18:50 21:07 WBC RBC Hgb Hct MCV MCH MCHC RDW RDW Differential Plt Count MPV Immature Gran % (Auto) Neut % (Auto) Lymph % (Auto) [place] % (Auto) Eos % (Auto) Baso % (Auto) Absolute Neuts (auto) Absolute Lymphs (auto) Total Counted ESR Sodium Potassium Chloride Carbon Dioxide Anion Gap BUN Creatinine Estim Creat Clear Calc Est GFR (MDRD) Af Amer Est GFR (MDRD) Non-Af BUN/Creatinine Ratio Glucose Hemoglobin A1c Calcium Magnesium Troponin I < 0.015 < 0.015 C-React Prot Ext Range TSH Vancomycin Trough 14.2 06/29/18 06/29/18 06/29/18 00:02 05:45 05:45 WBC 7.6 RBC 3.96 L Hgb 12.0 Hct 37.7 MCV 95.2 MCH 30.3 MCHC 31.8 L RDW 13.3 RDW Differential 44.2 H Plt Count 221 MPV 9.5 Immature Gran % (Auto) 0.100 Neut % (Auto) 55.5 Lymph % (Auto) 26.9 [place] % (Auto) 5.9 Eos % (Auto) 10.9 H Baso % (Auto) 0.7 Absolute Neuts (auto) 4.2 Absolute Lymphs (auto) 2.05 Total Counted Not Reportable ESR Sodium 143 Potassium 4.4 Chloride 107 Carbon Dioxide 25.0 Anion Gap 11 BUN 14 Creatinine 1.01 Estim Creat Clear Calc 51.15 Est GFR (MDRD) Af Amer 72 Est GFR (MDRD) Non-Af 59 L BUN/Creatinine Ratio 13.9 Glucose 141 H Hemoglobin A1c Calcium 8.5 Magnesium Troponin I < 0.015 C-React Prot Ext Range TSH 20.40 H Vancomycin Trough 06/29/18 05:45 WBC RBC Hgb Hct MCV MCH MCHC RDW RDW Differential Plt Count MPV Immature Gran % (Auto) Neut % (Auto) Lymph % (Auto) [place] % (Auto) Eos % (Auto) Baso % (Auto) Absolute Neuts (auto) Absolute Lymphs (auto) Total Counted ESR Sodium Potassium Chloride Carbon Dioxide Anion Gap BUN Creatinine Estim Creat Clear Calc Est GFR (MDRD) Af Amer Est GFR (MDRD) Non-Af BUN/Creatinine Ratio Glucose Hemoglobin A1c 7.3 H Calcium Magnesium Troponin I C-React Prot Ext Range TSH Vancomycin Trough - Other Studies Radiology: [] reviewed Other Studies: [] Route of nutrition/ use of supplements: [] Nutritional Intake: [] IV Site: [] Jang Catheter: [] - Physical Exam General: Alert, Oriented x3, Cooperative, No apparent distress HEENT: Atraumatic, PERRLA, EOMI Neck: Supple, No Nodes Lungs: Clear to auscultation, Normal air movement Cardiovascular: Regular rate, Regular Rhythm, No murmurs Abdomen: Soft, Non Tender, Non-Distended Extremities: No edema Skin: Incision - tiny opening on inferior part of anterior L shoulder incision IV Site: PICC, without redness Musculoskeletal: No Tenderness to Palpation of Joints or Extremities - L shoulder sore Neurological: Cranial nerves II-XII grossly intact - Assessment/Plan Antibiotics: [] Assessment/Plan: [] MRSE L shoulder PJI - s/p debridement 06/[address] Sorto. Now with heavy drainage. Cxs pending. Continue vanc. OR planned for today. Will follow, thank you.
[2018-06-29 11:46] LABS: Bedside Glucose 137 mg/dL (70-110)
--- NOTE | 2018-06-29 12:25 | PCM.PROGNOTE ---
Subjective: Pt has no complaints this morning. She has no fevers or chills, no cough or SOB, no CP/heaviness/tightness or LH/Dizzy. She underwent stress test this AM with no issues - negative. - Physical Exam General: Alert, Oriented x3, Cooperative HEENT: Atraumatic, PERRLA, EOMI, Normocephalic Neck: Supple, No JVD, Negative Carotid Bruits Lungs: Clear to auscultation, Normal air movement Cardiovascular: Regular rate, No murmurs Abdomen: Bowel Sounds Present, Soft, Non Tender, Obese Extremities: No edema, Capillary Refill Less than 3 Seconds Skin: No rashes, No breakdown Musculoskeletal: No Tenderness to Palpation of Joints or Extremities Neurological: Cranial nerves II-XII grossly intact Psych/Mental Status: Normal Affect, Appropriate, Alert and oriented to time, place, person, mood and affect Vital Signs Temp Pulse Resp BP Pulse Ox 97.9 F 78 16 156/104 H 95 06/29/18 09:10 06/29/18 09:10 06/29/18 09:10 06/29/18 09:10 06/29/18 09:10 Oxygen Flow Rate (L/min) [3] 2 Oxygen Flow Rate (L/min) [2] 2 Oxygen Flow Rate (L/min) [1 ( 2 Initial Baseline)] Oxygen Flow Rate (L/min) 2 Oxygen Delivery Method [3] Nasal Cannula Oxygen Delivery Method [2] Nasal Cannula Oxygen Delivery Method [1 ( Nasal Cannula Initial Baseline)] Oxygen Delivery Method Room Air Weight: 311 lb 8.211 oz Body Mass Index (BMI) 53.4 Finger Stick Blood Glucose 112 Intake and Output for Last 24 Hours 06/27/18 06/28/18 06/29/18 23:59 23:59 23:59 Intake Total 2631 / 2631 Output Total 2200 / 2200 Balance 431 / 431 Laboratory Tests Past 24 Hrs 06/28/18 06/28/18 06/28/18 12:30 12:30 12:30 WBC 8.9 RBC 4.17 L Hgb 12.8 Hct 39.6 MCV 95.0 MCH 30.7 MCHC 32.3 RDW 13.4 RDW Differential 44.2 H Plt Count 234 MPV 9.5 Immature Gran % (Auto) 0.200 Neut % (Auto) 65.9 Lymph % (Auto) 19.5 Dickson % (Auto) 5.1 Eos % (Auto) 9.0 H Baso % (Auto) 0.3 Absolute Neuts (auto) 5.8 Absolute Lymphs (auto) 1.73 Total Counted Not Reportable ESR 31 H Sodium 138 Potassium 4.1 Chloride 103 Carbon Dioxide 24.0 Anion Gap 11 BUN 14 Creatinine 1.15 H Estim Creat Clear Calc 43.03 Est GFR (MDRD) Af Amer 62 Est GFR (MDRD) Non-Af 51 L BUN/Creatinine Ratio 12.2 Glucose 189 H Hemoglobin A1c Calcium 8.8 Magnesium 2.0 Troponin I C-React Prot Ext Range 27.20 H TSH Vancomycin Trough 06/28/18 06/28/18 06/28/18 13:00 18:50 21:07 WBC RBC Hgb Hct MCV MCH MCHC RDW RDW Differential Plt Count MPV Immature Gran % (Auto) Neut % (Auto) Lymph % (Auto) Dickson % (Auto) Eos % (Auto) Baso % (Auto) Absolute Neuts (auto) Absolute Lymphs (auto) Total Counted ESR Sodium Potassium Chloride Carbon Dioxide Anion Gap BUN Creatinine Estim Creat Clear Calc Est GFR (MDRD) Af Amer Est GFR (MDRD) Non-Af BUN/Creatinine Ratio Glucose Hemoglobin A1c Calcium Magnesium Troponin I < 0.015 < 0.015 C-React Prot Ext Range TSH Vancomycin Trough 14.2 06/29/18 06/29/18 06/29/18 00:02 05:45 05:45 WBC 7.6 RBC 3.96 L Hgb 12.0 Hct 37.7 MCV 95.2 MCH 30.3 MCHC 31.8 L RDW 13.3 RDW Differential 44.2 H Plt Count 221 MPV 9.5 Immature Gran % (Auto) 0.100 Neut % (Auto) 55.5 Lymph % (Auto) 26.9 Dickson % (Auto) 5.9 Eos % (Auto) 10.9 H Baso % (Auto) 0.7 Absolute Neuts (auto) 4.2 Absolute Lymphs (auto) 2.05 Total Counted Not Reportable ESR Sodium 143 Potassium 4.4 Chloride 107 Carbon Dioxide 25.0 Anion Gap 11 BUN 14 Creatinine 1.01 Estim Creat Clear Calc 51.15 Est GFR (MDRD) Af Amer 72 Est GFR (MDRD) Non-Af 59 L BUN/Creatinine Ratio 13.9 Glucose 141 H Hemoglobin A1c Calcium 8.5 Magnesium Troponin I < 0.015 C-React Prot Ext Range TSH 20.40 H Vancomycin Trough 06/29/18 05:45 WBC RBC Hgb Hct MCV MCH MCHC RDW RDW Differential Plt Count MPV Immature Gran % (Auto) Neut % (Auto) Lymph % (Auto) Dickson % (Auto) Eos % (Auto) Baso % (Auto) Absolute Neuts (auto) Absolute Lymphs (auto) Total Counted ESR Sodium Potassium Chloride Carbon Dioxide Anion Gap BUN Creatinine Estim Creat Clear Calc Est GFR (MDRD) Af Amer Est GFR (MDRD) Non-Af BUN/Creatinine Ratio Glucose Hemoglobin A1c 7.3 H Calcium Magnesium Troponin I C-React Prot Ext Range TSH Vancomycin Trough POC Glucose 06/29/18 06/29/18 06/28/18 11:32 06:19 22:20 POC Glucose 137 H 129 H 149 H Medical Necessity - Tobacco Use Smoking Status: Never smoker Assessment/Plan All Active Problems (Last Updated 06/11/18 @ 14:23 by Opal Peraza MD) Infection of prosthetic shoulder joint (Acute) 1. Left total shoulder repair, now septic + dislocated - Was on home vanco with [facility]. Prior cultures with staph epidermidis - R to clinda, emycin, oxacillin. ID consult - continue vanco. Reculture. Afebrile no leukocytosis. Elevated CRP/ESR. To OR today. 2. Prior Post op EKG changes - stress test negative. Pt will go to surgery today. 3. DMt2 with morbid obesity - hold metformin, SSI. Dietary eval 4. LUIS - compliant with home CPAP- will continue 5. Hx Hypothyroidism - synthroid 6. Depression/Anxiety - home meds 7. HLD - statin therapy 8. HTN in ER - trend. Improved, still running high. Re-evaluate post op. DVT ppx: per ortho Thank you for the opportunity to participate in the care of this patient. This patient was seen by Walter Pillai PA-C under the supervision of Doctor Betancourt.
--- NOTE | 2018-06-29 13:35 | NURSING ---
report called to Aimee in AC. pt transported off the unit at this time via bed
--- NOTE | 2018-06-29 13:58 | CASEMGMT ---
Addendum entered by Marty Carney 06/29/18 14:57: Call received from pharmacist @ [facility]. Updated on pt admission. Pharmacist verified that new script will need sent to [facility] on discharge for IV antibiotic therapy. Josh HOLMANN RN ACM Original Note: RN CM Readmission Note Presentation: 06/28/18 Infected L shoulder replacement. For OR 06/29. ID consult. Pt has PICC line. Recent Admission: 06/09/18 Washout and dc'd home on IV antibiotics through [facility] and home health through [facility]. -Call to [facility] and [facility] to notify of pt admission to hospital. Per [facility], pt will need renewed script for IV antibiotics on dc -Call to Lily @ [facility] Comp MGMT, pt's OBWC CM. Updated via phone message that pt has returned to hospital. PH: FX DC PLAN: undetermined. ID on consult. Anticipate return home with continued IV antibiotics and Home Health.
--- NOTE | 2018-06-29 15:11 | PCA ---
pt off floor
[2018-06-29] MEDS: Vancomycin IV 1,000 MG/20 ML Vial 2000 MG OPERA.SITE (16:00)
--- NOTE | 2018-06-29 17:06 | OP.PCM_ITS ---
Report of Operation Date of Procedure: 06/29/18 Pre-Operative Diagnosis: Left shoulder infection, left shoulder total shoulder dislocation Post-Operative Diagnosis: Left shoulder infection, left shoulder total shoulder dislocation Surgery/Procedure Performed:: Explant left total shoulder replacement with placement of antibiotic spacer. Description of Surgical Findings:: Stable hemiarthroplasty cement spacer replacement bending machine operator: Marco A Saleh bending machine operator: Mariola Mccormack Type of Anesthesia:: General Anesthesiologist: Kev Badillo Special Medications: Vancomycin scheduled antibiotics, antibiotic cement had vancomycin, tobramycin and Ancef. Patient received TXA. Specimen's removed: 3 separate specimens were sent to microbiology Estimated Blood Loss (mL): 150 Fluids Replaced: 700 mL crystalloid Description of Procedure: 62-year-old female with history of posttraumatic osteoarthritis and rotator cuff dysfunction. In March 2018 patient had removal of hardware and left reverse total shoulder replacement. She had drainage and positive methicillin-resistant staph epi infection with irrigation debridement 3 weeks ago. Patient had progressive swelling starting 2 weeks postop. Initial x-ray showed well aligned shoulder. One week later she had increased fluid and drainage from the wound. She presented to the emergency department where she had a dislocated reverse total shoulder replacement. Based on the continued fluid drainage and dislocation we discussed the patient removal of the implants placement of antibiotic spacer and continued treatment of her infection with eventual replant of the shoulder replacement. Patient demonstrated understanding of this as well as the risk and benefits which include but were not limited to blood loss, DVTs, PEs, neurovascular damage, infection, general risk of anesthesia including loss of life. Patient wished to proceed. On the date of the procedure patient's left shoulder was marked in the preoperative area. Patient was brought back to the operating room where there transferred to the table in the supine position. Anesthesia assumed control of the C-spine and airway and remained in control for the remainder of the procedure. After anesthesia administered anesthetic and control the airway patient was placed in the beachchair position and securely fastened to the table with all bony prominences identified well-padded. After patient was adequately position the left upper extremity was prepped in a sterile fashion while the surgeon scrubbed. Upon reentering the room the left upper extremity was draped in a standard orthopedic fashion and the incision was marked out. Timeout was called and everyone agreed upon the side, the site, the procedure performed, patient's identity and by skin. Incision was taken down through skin. Immediately a gush of serosanguineous fluid with copious amounts of fluid was evacuated from the area. We identified the area where this tracked directly to the joint. Previous fascia closure with Vicryl sutures was identified and the previous sutures were removed. Were able to get down to the joint quickly. At this time the already dislocated shoulder humerus was externally rotated. We are able to separate the humeral baseplate from the humeral head. Membrane from the synovium as well as behind the humeral head was sent for culture. We then directed our attention to the glenoid. Using threaded extractor the glenoid sphere was removed by disrupting the Reeder taper. Once this was done all 3 screws were removed from the baseplate. The baseplate and surgery was then connected to the baseplate and the baseplate was rotated. This was removed from the bony glenoid. There was minimal bone disruption. At this time the humerus was again externally rotated and our attention was directed towards the humeral stem. A thin bur was used to bur around the edges. A flexible osteotome was used to break up the bone implant interface and the protein was placed on the humeral stem and it was back slapped out. At this time membrane from the glenoid and humeral shaft were sent for culture. The humeral shaft was reamed out to help with debridement. We then directed our attention back to the joint where a safe and aggressive synovectomy was performed of all infectious appearing material, being mindful of neurovascular structures. Hemostasis was obtained. 6 L of normal saline were irrigated throughout the joint under low pressure lavage. Everyone changed their gloves. At this time the humerus was again dislocated and exposed. A medium ostial remedies humeral stem and large 50 mm head were selected. These were placed down the shaft of the humerus and reduced for trials. Once were happy with the appropriate height the antibiotic cement was mixed by hand on the back table using 2 g vancomycin, 1 g Ancef and 1.2 g tobramycin. About half the cement was used to fix the premolded antibiotic spacer. After the initial cement patient was placed the shoulder was reduced and cement was allowed to harden in situ. All excess cement was debrided. The shoulder was stable at this time. Wound was once again irrigated with normal saline. At this time we made a fascial layer from the previous medial flap and use this to make a watertight closure using #1 PDS. Once this layer was closed 2-0 Vicryl was used to close the skin subcutaneously with nylon suture for final skin closure. Sterile silver dressing was placed. Sling was placed. Patient was awakened by anesthesia and transferred to PACU for recovery. Postoperative plan: Patient will be nonweightbearing for a total of 6 weeks with 6 weeks IV antibiotics and plan for eventual reimplantation of the reverse total shoulder replacement. Infectious disease is on consultation. Recommend 325 mg aspirin daily upon discharge for at least 2 weeks. Patient has range of motion limitations of 70 degrees forward elevation, 70 degrees abduction and external rotation to neutral. She will maintain these restrictions as well as wear a sling for the next 6 weeks. During the course of the procedure the physician regulatory assistant played a vital role. His intimate knowledge of my steps in the procedure aided in safe and expedient completion of the procedure. The PA played a vital rolls in positioning particularly in obtaining the appropriate beach chair position and securing the patient's body and head to the table. The PA was also vital in the retraction of soft tissues during the exposure and especially the glenoid work as this is a vital part of the procedure to prevent neurovascular damage. the PA was also vital and protecting soft tissues during times of bony cuts and reaming. He also played a vital role in closure with my direct supervision. The PA was also important during reduction and dislocation of the joint and trials intraoperatively. Grafts/Implants Used: [employer] medium stem, large head - Complications No intraoperative complications - Admit VTE Documentation VTE Present on Admission: No VTE Mechan Device Prophylaxis: SCD's VTE Pharm Prophylaxis ordered?: Yes
[2018-06-29] MEDS: 0.9% Normal Saline 1,000 ML 100 ML IV (17:26)
--- NOTE | 2018-06-29 17:35 | RAD_ITS ---
STUDY: X-RAY - LEFT SHOULDER REASON FOR EXAM: Female, 62 years old. Postop TECHNIQUE: Single view of the shoulder. COMPARISON: June 28, 2018 FINDINGS: Status post revision of prosthesis. Postsurgical changes in the adjacent soft tissues. Degenerative hypertrophy at the acromioclavicular articulation. Normal visualized pulmonary apex. RAD/Shoulder One View IMPRESSION: Revision of prosthesis of the shoulder with postsurgical changes. Electronically Signed: Daniele Willis DO at 19:04 EST Tel [phone], Service support ,
[2018-06-29 18:21] LABS: Bedside Glucose 168 mg/dL (70-110)
[2018-06-29] MEDS: Aspirin 81 MG TAB.CHEW PO (22:54)
[2018-06-29] MEDS: Insulin Lispro 100 UNIT/ML INSULN.PEN SC (22:56)
[2018-06-29] MEDS: Atorvastatin Calcium 10 MG Tablet PO (22:56)
[2018-06-29 23:06] LABS: Bedside Glucose 217 mg/dL (70-110)
[2018-06-30 02:45] VITALS: BP 153/81; PULSE 104; RESP 18; TEMP 36.6; O2SAT 97
[2018-06-30] MEDS: 0.9% Normal Saline 1,000 ML 100 ML IV (03:38)
[2018-06-30] MEDS: Morphine 4 MG/ML Syringe IV (03:45)
[2018-06-30] MEDS: 0.9% NaCl Peripheral Flush Adult/Peds IV ×5 (03:45→14:13)
[2018-06-30] MEDS: Levothyroxine 125 MCG Tablet PO (06:21)
[2018-06-30 06:51] LABS: Bedside Glucose 140 mg/dL (70-110)
[2018-06-30] MEDS: oxyCODONE 5 MG Tablet PO ×2 (07:24→14:06)
[2018-06-30 07:33] VITALS: BP 120/72; PULSE 73; RESP 16; TEMP 36.9; O2SAT 95
[2018-06-30 07:34] VITALS: O2SAT 97
[2018-06-30] MEDS: Famotidine 20 MG Tablet PO (08:18)
[2018-06-30] MEDS: FLUoxetine 20 MG Capsule PO (08:18)
[2018-06-30] MEDS: Aspirin 81 MG TAB.CHEW PO ×2 (08:20→16:39)
[2018-06-30 08:25] LABS: Absolute Lymphocyte Count 1.16 X10^3/ul (0.83-4.51); Absolute Neutrophil Count 9.1 X10^3/uL (2.0-7.7); Basophil# 0.02 X10^3/uL; Basophil% 0.2 % (0-1); Eosinophil# 0.01 X10^3/uL; Eosinophils% 0.1 % (0-5); Hematocrit 32.9 % (37-47); Hemoglobin 10.4 g/dl (12.0-15.0); Lymphocyte # 1.16 X10^3/ul (4.0); Lymphocyte % 10.7 % (19-41); Mean Corp Hgb Conc 31.6 g/gl (32-36); Mean Corpuscular Hgb 29.9 pg (27.0-32.0); Mean Corpuscular Volume 94.5 fL (81-99); Mean Platelet Vol. 9.7 fl (6.2-12.0); Monocyte# 0.53 X10^3/uL; Monocyte% 4.9 % (0-10); Neutrophil # 9.07 X10^3/uL (2.7-7.7); Neutrophil % 83.9 % (47-70); Platelet Count 224 K/mm3 (150-450); RBC Distribution Width CV 13.7 % (11.6-14.6); RBC Distribution Width SD 46.9 fl (35.1-43.9); Red Blood Count 3.48 M/mm3 (4.2-5.4); White Blood Count 10.8 K/mm3 (4.4-11.0)
[2018-06-30 08:31] LABS: Anion Gap 6 (5-15); BUN 17 mg/dL (7-18); BUN/Creat Ratio 16.5 RATIO (10-20); Calcium,Total 7.5 mg/dL (8.5-10.1); Chloride 106 mmol/L (98-107); Creatinine, Serum 1.03 mg/dL (0.55-1.02); EST Glomerular Filtration Rate 58 mL/min (>60); Est Glom Filt Rate - Afr Amer 70 mL/min (>60); Estimated Creatinine Clearance 50.16 ml/min; Glucose 129 mg/dL (74-106); Sodium Level 135 mmol/L (136-145)
[2018-06-30 08:32] LABS: POSITIVE DIFFERENTIAL NO
--- NOTE | 2018-06-30 08:32 | NURSING ---
VITALS REVIEWED FROM THIS AM COMPLETED BY SUSU ALVARADO VISCOSITY INSPECTOR.
[2018-06-30 08:33] LABS: POSITIVE COUNT NO; POSITIVE MORPHOLOGY NO
[2018-06-30 10:36] LABS: Vancomycin, Trough Level 21.4 ug/mL (5.0-15.0)
[2018-06-30 11:16] LABS: Bedside Glucose 121 mg/dL (70-110)
[2018-06-30 12:50] VITALS: BP 127/70; PULSE 73; RESP 16; TEMP 36.9; O2SAT 94
--- NOTE | 2018-06-30 13:34 | PN.ID_ITS ---
Subjective: Feeling ok, pain controlled, no fever. - Physical Exam General: Alert, Cooperative, No apparent distress Lungs: Clear to auscultation, Normal air movement Cardiovascular: Regular rate, Regular Rhythm Abdomen: Soft, Non Tender, Non-Distended Skin: Ulcer/ Wound - L shoulder wrapped, in sling Vital Signs Temp Pulse Resp BP Pulse Ox 98.4 F 73 16 127/70 H 94 06/30/18 12:50 06/30/18 12:50 06/30/18 12:50 06/30/18 12:50 06/30/18 12:50 Oxygen Flow Rate (L/min) [3] 2 Oxygen Flow Rate (L/min) [2] 2 Oxygen Flow Rate (L/min) [1 ( 2 Initial Baseline)] Oxygen Flow Rate (L/min) 2 Oxygen Delivery Method [3] Nasal Cannula Oxygen Delivery Method [2] Nasal Cannula Oxygen Delivery Method [1 ( Nasal Cannula Initial Baseline)] Oxygen Delivery Method Room Air Weight: 141.3 kg Body Mass Index (BMI) 53.4 Finger Stick Blood Glucose 168 Intake and Output for Last 24 Hours 06/28/18 06/29/18 06/30/18 23:59 23:59 23:59 Intake Total 3731 / 3731 2375 / 2375 Output Total 2200 / 2200 800 / 800 Balance 1531 / 1531 1575 / 1575 Microbiology Past 72 Hours 06/29/18 15:30 Wound Culture - Preliminary Tissue - Shoulder No growth-Final to follow 06/29/18 15:30 Wound Culture - Preliminary Tissue - Shoulder No growth-Final to follow 06/29/18 15:30 Wound Culture - Preliminary Tissue - Shoulder No growth-Final to follow 06/28/18 12:50 Blood Culture - Preliminary Blood Culture (Wb) - Pic No growth in 48 hours. 06/28/18 12:30 Blood Culture - Preliminary Blood Culture (Wb) - Right Forearm No growth in 48 hours. Laboratory Tests Past 24 Hrs 06/30/18 06/30/18 06/30/18 08:07 08:07 09:35 WBC 10.8 RBC 3.48 L Hgb 10.4 L Hct 32.9 L MCV 94.5 MCH 29.9 MCHC 31.6 L RDW 13.7 RDW Differential 46.9 H Plt Count 224 MPV 9.7 Immature Gran % (Auto) 0.200 Neut % (Auto) 83.9 H Lymph % (Auto) 10.7 L Sibley % (Auto) 4.9 Eos % (Auto) 0.1 Baso % (Auto) 0.2 Absolute Neuts (auto) 9.1 H Absolute Lymphs (auto) 1.16 Total Counted Not Reportable Sodium 135 L Potassium 5.0 Chloride 106 Carbon Dioxide 23.0 Anion Gap 6 BUN 17 Creatinine 1.03 H Estim Creat Clear Calc 50.16 Est GFR (MDRD) Af Amer 70 Est GFR (MDRD) Non-Af 58 L BUN/Creatinine Ratio 16.5 Glucose 129 H Calcium 7.5 L Vancomycin Trough 21.4 H POC Glucose 06/30/18 06/30/18 06/29/18 11:08 06:31 22:49 POC Glucose 121 H 140 H 217 H 06/29/18 18:16 POC Glucose 168 H Medical Necessity - Tobacco Use Smoking Status: Never smoker Route of nutrition/ use of supplements: [] Nutritional Intake: [] IV Site: [] Jang Catheter: [] - Assessment/Plan Antibiotics: [] Assessment/Plan: [] DEREK Modi shoulder PJI - s/p debridement 06/[address] Sorto. Presented with heavy drainage. Cxs neg so far. Continue vanc. Taken to OR 06/[address] Sorto for spacer placement. Will follow
--- NOTE | 2018-06-30 13:40 | PN_ITS ---
Subjective: Increased pain since surgery, however current regimen is working well to control it. No fever or chills. No cough/SOB. No N/V/D. No numbness/tingling in LUE. - Physical Exam General: Alert, Oriented x3, Cooperative HEENT: Atraumatic, PERRLA, EOMI, Normocephalic Neck: Supple, No JVD, Negative Carotid Bruits Lungs: Clear to auscultation, Normal air movement Cardiovascular: Regular rate, No murmurs Abdomen: Bowel Sounds Present, Soft, Non Tender Extremities: No edema, Capillary Refill Less than 3 Seconds Skin: No rashes, No breakdown Musculoskeletal: No Tenderness to Palpation of Joints or Extremities, - - LUE distal PMS intact Neurological: Cranial nerves II-XII grossly intact Psych/Mental Status: Normal Affect, Appropriate Vital Signs Temp Pulse Resp BP Pulse Ox 98.4 F 73 16 127/70 H 94 06/30/18 12:50 06/30/18 12:50 06/30/18 12:50 06/30/18 12:50 06/30/18 12:50 Oxygen Flow Rate (L/min) [3] 2 Oxygen Flow Rate (L/min) [2] 2 Oxygen Flow Rate (L/min) [1 ( 2 Initial Baseline)] Oxygen Flow Rate (L/min) 2 Oxygen Delivery Method [3] Nasal Cannula Oxygen Delivery Method [2] Nasal Cannula Oxygen Delivery Method [1 ( Nasal Cannula Initial Baseline)] Oxygen Delivery Method Room Air Weight: 311 lb 8.211 oz Body Mass Index (BMI) 53.4 Finger Stick Blood Glucose 168 Intake and Output for Last 24 Hours 06/28/18 06/29/18 06/30/18 23:59 23:59 23:59 Intake Total 3731 / 3731 2375 / 2375 Output Total 2200 / 2200 800 / 800 Balance 1531 / 1531 1575 / 1575 Microbiology Past 72 Hours 06/29/18 15:30 Wound Culture - Preliminary Tissue - Shoulder No growth-Final to follow 06/29/18 15:30 Wound Culture - Preliminary Tissue - Shoulder No growth-Final to follow 06/29/18 15:30 Wound Culture - Preliminary Tissue - Shoulder No growth-Final to follow 06/28/18 12:50 Blood Culture - Preliminary Blood Culture (Wb) - Pic No growth in 48 hours. 06/28/18 12:30 Blood Culture - Preliminary Blood Culture (Wb) - Right Forearm No growth in 48 hours. Laboratory Tests Past 24 Hrs 06/30/18 06/30/18 06/30/18 08:07 08:07 09:35 WBC 10.8 RBC 3.48 L Hgb 10.4 L Hct 32.9 L MCV 94.5 MCH 29.9 MCHC 31.6 L RDW 13.7 RDW Differential 46.9 H Plt Count 224 MPV 9.7 Immature Gran % (Auto) 0.200 Neut % (Auto) 83.9 H Lymph % (Auto) 10.7 L Morrison % (Auto) 4.9 Eos % (Auto) 0.1 Baso % (Auto) 0.2 Absolute Neuts (auto) 9.1 H Absolute Lymphs (auto) 1.16 Total Counted Not Reportable Sodium 135 L Potassium 5.0 Chloride 106 Carbon Dioxide 23.0 Anion Gap 6 BUN 17 Creatinine 1.03 H Estim Creat Clear Calc 50.16 Est GFR (MDRD) Af Amer 70 Est GFR (MDRD) Non-Af 58 L BUN/Creatinine Ratio 16.5 Glucose 129 H Calcium 7.5 L Vancomycin Trough 21.4 H POC Glucose 06/30/18 06/30/18 06/29/18 11:08 06:31 22:49 POC Glucose 121 H 140 H 217 H 06/29/18 18:16 POC Glucose 168 H Medical Necessity - Tobacco Use Smoking Status: Never smoker Assessment/Plan All Active Problems (Last Updated 06/11/18 @ 14:23 by Opal Peraza MD) Infection of prosthetic shoulder joint (Acute) 1. Left total shoulder repair, now septic + dislocated - s/p spacer replacement in OR POD#1. Follow final cultures. ID continuing vanc for now. MR chaudhary epi on prior. No fever/leukocytosis. 2. Prior Post op EKG changes - stress test negative this admission. 3. DMt2 with morbid obesity - hold metformin, SSI. Dietary eval. Sugars remain fairly controlled. 4. LUIS - compliant with home CPAP- will continue 5. Hx Hypothyroidism - synthroid 6. Depression/Anxiety - home meds 7. HLD - statin therapy 8. HTN in ER - trend. Improved, treat underlying pain. DVT ppx: per ortho Thank you for the opportunity to participate in the care of this patient. This patient was seen by Walter Pillai PA-C under the supervision of Doctor Leatha lim.
--- NOTE | 2018-06-30 13:49 | PCM.RX.CS ---
Consult Pharmacy has been consulted to manage selected antiobiotic: Vancomycin Type of Consult: Follow-up Suspected Infection: Other Prior Doses of Antibiotics Received/Current Regimen: Medications Discontinued Medications Vancomycin HCl 1,500 mg/ (Sodium Chloride) 530 mls @ 250 mls/hr IV Q12H ANDREA Stop: 07/21/18 22:01 Last Admin: 06/30/18 09:51 Dose: 250 mls/hr Labs: Sodium 135 mmol/L (136-145) L 06/30/18 08:07 Potassium 5.0 mmol/L (3.5-5.1) 06/30/18 08:07 Chloride 106 mmol/L (98-107) 06/30/18 08:07 Carbon Dioxide 23.0 mmol/L (21.0-32.0) 06/30/18 08:07 Anion Gap 6 (5-15) 06/30/18 08:07 BUN 17 mg/dL (7-18) 06/30/18 08:07 Creatinine 1.03 mg/dL (0.55-1.02) H 06/30/18 08:07 Est GFR (MDRD) Af Amer 70 mL/min (>60) 06/30/18 08:07 Est GFR (MDRD) Non-Af 58 mL/min (>60) L 06/30/18 08:07 BUN/Creatinine Ratio 16.5 RATIO (10-20) 06/30/18 08:07 Glucose 129 mg/dL (74-106) H 06/30/18 08:07 Vancomycin Trough 21.4 ug/mL (5.0-15.0) H 06/30/18 09:35 Microbiology: Microbiology 06/29/18 15:30 Tissue - Shoulder Wound Culture - Preliminary No growth-Final to follow 06/29/18 15:30 Tissue - Shoulder Wound Culture - Preliminary No growth-Final to follow 06/29/18 15:30 Tissue - Shoulder Wound Culture - Preliminary No growth-Final to follow 06/28/18 12:50 Blood Culture (Wb) - Pic Blood Culture - Preliminary No growth in 48 hours. 06/28/18 12:30 Blood Culture (Wb) - Right Forearm Blood Culture - Preliminary No growth in 48 hours. Estimated Creatinine Clearance: 50 ml/min Goal Trough: 15-20 mcg/mL Pharmacy Plan for Drug Dosing: Trough obtained before this morning's dose was 21.4. Since this is above the goal range of 15-20 and above 20, per protocol, dosing will be held until the vancomycin level is <20. Since a dose was given after the trough was drawn this morning, we will draw a level about 18 hours from that dose to allow the level to return to <20 and then redose from there. Pharmacy Service will continue to monitor and adjust dosing as required. Follow-Up Labs: Trough Vancomycin Labs to be done on [date and time ordered]: 07/01/18 at 04:00
--- NOTE | 2018-06-30 14:28 | NURSING ---
student nurse Sheri's charting reviewed for educational purposes by Guillermo carrasco
--- NOTE | 2018-06-30 14:43 | PN.ORTHO_ITS ---
Subjective: pt doing well. awaiting final abx arrangements. comfortable. no drainage on dressing. no cp/sob/ no n/t. Objective: post op x-rays show stable spacer - Physical Exam General: Alert, Oriented x3, Cooperative Extremities: - - LUE: inc c/d/i. SILT Ax/R/U/M. 2 +radial pulse, Motor intact distally R/M/U Vital Signs Temp Pulse Resp BP Pulse Ox 98.4 F 73 16 127/70 H 94 06/30/18 12:50 06/30/18 12:50 06/30/18 12:50 06/30/18 12:50 06/30/18 12:50 Oxygen Flow Rate (L/min) [3] 2 Oxygen Flow Rate (L/min) [2] 2 Oxygen Flow Rate (L/min) [1 ( 2 Initial Baseline)] Oxygen Flow Rate (L/min) 2 Oxygen Delivery Method [3] Nasal Cannula Oxygen Delivery Method [2] Nasal Cannula Oxygen Delivery Method [1 ( Nasal Cannula Initial Baseline)] Oxygen Delivery Method Room Air Weight: 311 lb 8.211 oz Body Mass Index (BMI) 53.4 Finger Stick Blood Glucose 168 Intake and Output for Last 24 Hours 06/28/18 06/29/18 06/30/18 23:59 23:59 23:59 Intake Total 3731 / 3731 3423 / 3423 Output Total 2200 / 2200 800 / 800 Balance 1531 / 1531 2623 / 2623 Microbiology Past 72 Hours 06/29/18 15:30 Gram Stain - Final Tissue - Shoulder Wound Culture - Preliminary No growth-Final to follow 06/29/18 15:30 Gram Stain - Final Tissue - Shoulder Wound Culture - Preliminary No growth-Final to follow 06/29/18 15:30 Gram Stain - Final Tissue - Shoulder Wound Culture - Preliminary No growth-Final to follow 06/28/18 12:50 Blood Culture - Preliminary Blood Culture (Wb) - Pic No growth in 48 hours. 06/28/18 12:30 Blood Culture - Preliminary Blood Culture (Wb) - Right Forearm No growth in 48 hours. Laboratory Tests Past 24 Hrs 06/30/18 06/30/18 06/30/18 08:07 08:07 09:35 WBC 10.8 RBC 3.48 L Hgb 10.4 L Hct 32.9 L MCV 94.5 MCH 29.9 MCHC 31.6 L RDW 13.7 RDW Differential 46.9 H Plt Count 224 MPV 9.7 Immature Gran % (Auto) 0.200 Neut % (Auto) 83.9 H Lymph % (Auto) 10.7 L [place] % (Auto) 4.9 Eos % (Auto) 0.1 Baso % (Auto) 0.2 Absolute Neuts (auto) 9.1 H Absolute Lymphs (auto) 1.16 Total Counted Not Reportable Sodium 135 L Potassium 5.0 Chloride 106 Carbon Dioxide 23.0 Anion Gap 6 BUN 17 Creatinine 1.03 H Estim Creat Clear Calc 50.16 Est GFR (MDRD) Af Amer 70 Est GFR (MDRD) Non-Af 58 L BUN/Creatinine Ratio 16.5 Glucose 129 H Calcium 7.5 L Vancomycin Trough 21.4 H POC Glucose 06/30/18 06/30/18 06/29/18 11:08 06:31 22:49 POC Glucose 121 H 140 H 217 H 06/29/18 18:16 POC Glucose 168 H Medical Necessity - Tobacco Use Smoking Status: Never smoker Assessment/Plan All Active Problems (Last Updated 06/11/18 @ 14:23 by Opal Peraza MD) Infection of prosthetic shoulder joint (Acute) POD 1 I&D left TSA with Explant and placement abx spacer. 1. Dvt ppx: asa daily 2. Abx: continue vanc regimen per ID 3. pain controlled, continued current regimen 4. PT. continue ROM limitations and sling. ok for pendulum swings and ROm elbow, wrist and finger. 5. medically stable appreciate medical consult 6. dispo: likely tomorrow once abx arranged. saw
[2018-06-30 16:41] VITALS: BP 141/71; PULSE 93; RESP 16; TEMP 36.6; O2SAT 97
[2018-06-30 16:50] LABS: Bedside Glucose 142 mg/dL (70-110)
[2018-06-30 20:39] VITALS: BP 132/71; PULSE 71; RESP 18; TEMP 37; O2SAT 95
[2018-06-30] MEDS: Acetaminophen 500 MG Tablet 1000 MG PO (21:34)
[2018-06-30] MEDS: oxyCODONE 5 MG Tablet 10 MG PO (21:34)
[2018-06-30] MEDS: Atorvastatin Calcium 10 MG Tablet PO (21:34)
[2018-06-30 22:01] LABS: Bedside Glucose 137 mg/dL (70-110)
[2018-07-01 03:28] VITALS: BP 128/73; PULSE 69; RESP 18; TEMP 36.6; O2SAT 97
[2018-07-01 04:28] LABS: Vancomycin, Trough Level 17.1 ug/mL (5.0-15.0)
--- NOTE | 2018-07-01 06:05 | PCM.RX.CS ---
Consult Pharmacy has been consulted to manage selected antiobiotic: Vancomycin Type of Consult: Follow-up Labs: Sodium 135 mmol/L (136-145) L 06/30/18 08:07 Potassium 5.0 mmol/L (3.5-5.1) 06/30/18 08:07 Chloride 106 mmol/L (98-107) 06/30/18 08:07 Carbon Dioxide 23.0 mmol/L (21.0-32.0) 06/30/18 08:07 Anion Gap 6 (5-15) 06/30/18 08:07 BUN 17 mg/dL (7-18) 06/30/18 08:07 Creatinine 1.03 mg/dL (0.55-1.02) H 06/30/18 08:07 Est GFR (MDRD) Af Amer 70 mL/min (>60) 06/30/18 08:07 Est GFR (MDRD) Non-Af 58 mL/min (>60) L 06/30/18 08:07 BUN/Creatinine Ratio 16.5 RATIO (10-20) 06/30/18 08:07 Glucose 129 mg/dL (74-106) H 06/30/18 08:07 Vancomycin Trough 17.1 ug/mL (5.0-15.0) H 07/01/18 03:48 Microbiology: Microbiology 06/29/18 15:30 Tissue - Shoulder Gram Stain - Final 06/29/18 15:30 Tissue - Shoulder Wound Culture - Preliminary No growth-Final to follow 06/29/18 15:30 Tissue - Shoulder Gram Stain - Final 06/29/18 15:30 Tissue - Shoulder Wound Culture - Preliminary No growth-Final to follow 06/29/18 15:30 Tissue - Shoulder Gram Stain - Final 06/29/18 15:30 Tissue - Shoulder Wound Culture - Preliminary No growth-Final to follow 06/28/18 12:50 Blood Culture (Wb) - Pic Blood Culture - Preliminary No growth in 48 hours. 06/28/18 12:30 Blood Culture (Wb) - Right Forearm Blood Culture - Preliminary No growth in 48 hours. Estimated Creatinine Clearance: 50 Pharmacy Plan for Drug Dosing: Pharmacy Service will continue to monitor and adjust dosing as required. Medications Vancomycin HCl 1,250 mg/ (Sodium Chloride) 275 mls @ 167 mls/hr IV Q12H ANDREA RANDOM TROUGH 17.1 NEW DOSE 1250 Q12H TO START 2/28 1600 Follow-Up Labs: Trough Vancomycin Labs to be done on [date and time ordered]: 07/03 @ 0400
[2018-07-01] MEDS: Acetaminophen 500 MG Tablet 1000 MG PO ×2 (06:25→14:47)
[2018-07-01] MEDS: Levothyroxine 125 MCG Tablet PO (06:25)
[2018-07-01 06:36] LABS: Bedside Glucose 131 mg/dL (70-110)
[2018-07-01 07:02] VITALS: O2SAT 96
[2018-07-01] MEDS: Polyethylene Glycol 3350 17 GM PACKET PO (08:53)
[2018-07-01] MEDS: Aspirin 81 MG TAB.CHEW PO ×2 (08:53→16:09)
[2018-07-01] MEDS: Famotidine 20 MG Tablet PO (08:54)
[2018-07-01] MEDS: FLUoxetine 20 MG Capsule PO (08:54)
[2018-07-01 08:55] VITALS: BP 136/79; PULSE 66; RESP 16; TEMP 36.6; O2SAT 99
--- NOTE | 2018-07-01 09:44 | PCM.PN.ORT ---
Subjective: The patient was sitting in bedside chair upon examination. Patient denies any chest pain, shortness of breath, dizziness, lightheadedness, nausea or vomiting, or calf pain. Pain is controlled on medications. No adverse overnight events. Overall patient is doing much better today with regards to her pain. She has continued to be in the UltraSling. Patient will be ready for discharge once antibiotics have been established by infectious disease. Objective: Vital signs stable, afebrile Dressing is clean, dry, intact Ultra-sling fitting appropriately Sensation intact to axillary, radial, median, and ulnar distribution Motor intact to AIN, PIN, and ulnar nerve - Physical Exam General: Alert, Oriented x3, Cooperative, No apparent distress Vital Signs Temp Pulse Resp BP Pulse Ox 97.8 F 66 16 136/79 H 99 07/01/18 08:55 07/01/18 08:55 07/01/18 08:55 07/01/18 08:55 07/01/18 08:55 Oxygen Flow Rate (L/min) [3] 2 Oxygen Flow Rate (L/min) [2] 2 Oxygen Flow Rate (L/min) [1 ( 2 Initial Baseline)] Oxygen Flow Rate (L/min) 2 Oxygen Delivery Method [3] Nasal Cannula Oxygen Delivery Method [2] Nasal Cannula Oxygen Delivery Method [1 ( Nasal Cannula Initial Baseline)] Oxygen Delivery Method Room Air Weight: 141.3 kg Body Mass Index (BMI) 53.4 Finger Stick Blood Glucose 168 Intake and Output for Last 24 Hours 06/29/18 06/30/18 07/01/18 23:59 23:59 23:59 Intake Total 3731 / 3731 4123 / 4123 500 / 500 Output Total 2200 / 2200 2800 / 2800 1300 / 1300 Balance 1531 / 1531 1323 / 1323 -800 / -800 Microbiology Past 72 Hours 06/29/18 15:30 Gram Stain - Final Tissue - Shoulder Wound Culture - Preliminary No growth-Final to follow 06/29/18 15:30 Gram Stain - Final Tissue - Shoulder Wound Culture - Preliminary No growth-Final to follow 06/29/18 15:30 Gram Stain - Final Tissue - Shoulder Wound Culture - Preliminary No growth-Final to follow 06/28/18 12:50 Blood Culture - Preliminary Blood Culture (Wb) - Pic No growth in 48 hours. 06/28/18 12:30 Blood Culture - Preliminary Blood Culture (Wb) - Right Forearm No growth in 48 hours. Laboratory Tests Past 24 Hrs 06/30/18 07/01/18 09:35 03:48 Vancomycin Trough 21.4 H 17.1 H POC Glucose 07/01/18 06/30/18 06/30/18 06:27 21:32 16:40 POC Glucose 131 H 137 H 142 H 06/30/18 11:08 POC Glucose 121 H Medical Necessity - Tobacco Use Smoking Status: Never smoker Assessment/Plan All Active Problems (Last Updated 06/11/18 @ 14:23 by Opal Peraza MD) Infection of prosthetic shoulder joint (Acute) 1. S/P irrigation debridement left total shoulder arthroplasty with explant and placement antibiotic spacer POD #2 2. Continue Pain Medications: Tylenol and OxyIR 3. DVT Prophylaxis: Aspirin 81 mg twice daily for 2 weeks postoperatively 4. PT/OT: Range of motion limitations: 70 degrees forward elevation, 70 degrees abduction, and external rotation to neutral. Continue with UltraSling. Okay to work on pendulum exercises, range of motion left elbow, wrist, hand. Continue nonweightbearing for total 6 weeks postoperatively. 5. H & H: 10.4/32.9, asymptomatic 6. Encouraged Incentive Spirometry 7. Continue postoperative medical management per medicine 8. Consult infectious disease: Continue antibiotics per infectious disease. Patient currently on vancomycin x 6 weeks. 9. Disposition: Orthopedically stable, plan will be for discharge home today. Patient is currently getting home health for the IV antibiotics and has PICC line placed. Patient will continue with exercises established with physical therapy for the next 2 weeks. Will begin outpatient physical therapy in 2 weeks. Patient will follow-up with Dr. Eduardo Sorto on July 12, 2018 at 11 AM.
--- NOTE | 2018-07-01 10:00 | PCM.DC.ORTHO ---
Discharge Diet: 1800 Calorie Control Diet Discharge Activity: May Not Drive May shower in (days): 1 - Must cover a PICC line Ice area for (Minutes): 20 - Every 1-2 hours while awake Weight Bearing Status: No weight bearing - Left upper extremity Keep extremity elevated above heart level: Operative Extremity Call your doctor if your incision/area has: Continuous Slow Oozing, Sudden Increased Bleeding, Increased Pain/ Swelling, Increased Redness, Foul Smelling Discharge Call your doctor if you observe: Fever of 101 or Higher, Coldness, Increased Pain, Numbness or Tingling, Change in Color Remove Dressing in (days):: 3 - Okay to remove dressing on July 04, 2018 Additional Instructions: Follow [facility] postop instructions For constipation take [id number] stool softener until first bowel movement, then as needed. Physical therapy/exercises: Range of motion restrictions left shoulder: Forward flexion 70 degrees, abduction 70 degrees, external rotation to neutral. Okay to work on pendulum exercises, range of motion of left elbow, hand, wrist. Nonweightbearing for 6 weeks postoperatively on the left upper extremity. Allergies/Adverse Reactions: Allergies adhesive tape Allergy (Verified 06/28/18 11:52) BLISTERS/SCARS codeine Allergy (Verified 06/28/18 11:52) Shortness of breath Sulfa (Sulfonamide Antibiotics) Allergy (Verified 06/28/18 11:52) Rash Tetanus Vaccines and Toxoid [Tetanus Vaccines & Toxoid] Allergy (Verified 06/28/18 11:52) Swelling meperidine HCl [From Demerol] Adverse Reaction (Verified 06/28/18 11:52) Itching STERISTRIPS Allergy (Uncoded 06/28/18 11:52) BLISTERS/SCARS Medications to take at Discharge Fluoxetine [Prozac] 20 mg PO DAILY 06/05/14 Cholecalciferol (Vitamin D3) [Vitamin D3] 10,000 unit PO DAILY 06/28/18 Levothyroxine Sodium [Synthroid] 125 mcg PO DAILY 06/28/18 Metformin HCl [Metformin HCl ER] 1,000 mg PO DAILY 06/28/18 Simvastatin 20 mg PO QHS 06/28/18 Acetaminophen [Tylenol] 1,000 mg PO Q8 #0 tablet 07/01/18 Aspirin [Aspirin, Baby] 81 mg PO BIDCM tab.chew 07/01/18 Famotidine [Pepcid] 20 mg PO DAILY #12 tablet 07/01/18 Oxycodone [Oxyir] 10 mg PO Q4H PRN PRN 5 Days #60 tablet 07/01/18 Vancomycin IV 1,250 mg IV Q12H 40 Days #80 vial 07/01/18 The following prescriptions were given: Oxycodone [Oxyir] 10 mg PO Q4H PRN PRN 5 Days #60 tablet PRN Reason: Severe Pain (-02/10) Famotidine [Pepcid] 20 mg PO DAILY #12 tablet Vancomycin IV 1,250 mg IV Q12H 40 Days #80 vial Primary Care Physician: Diana Martinez DO [Primary Care Provider] - Test Results: Test results from this visit will be discussed in further detail at your follow-up appointment, if applicable. Please Follow Up With: Eduardo Sorto MD When: 07/12/18 @ 11:00 am Please Follow Up With: Sim Garcia MD When: follow up in 2-3 weeks
--- NOTE | 2018-07-01 10:03 | DCINST_ITS ---
Discharge Diet: 1800 Calorie Control Diet Discharge Activity: May Not Drive May shower in (days): 1 - Must cover a PICC line Ice area for (Minutes): 20 - Every 1-2 hours while awake Weight Bearing Status: No weight bearing - Left upper extremity Keep extremity elevated above heart level: Operative Extremity Call your doctor if your incision/area has: Continuous Slow Oozing, Sudden Increased Bleeding, Increased Pain/ Swelling, Increased Redness, Foul Smelling Discharge Call your doctor if you observe: Fever of 101 or Higher, Coldness, Increased Pain, Numbness or Tingling, Change in Color Remove Dressing in (days):: 3 - Okay to remove dressing on July 04, 2018 Additional Instructions: Follow [facility] postop instructions For constipation take [id number] stool softener until first bowel movement, then as needed. Physical therapy/exercises: Range of motion restrictions left shoulder: Forward flexion 70 degrees, abduction 70 degrees, external rotation to neutral. Okay to work on pendulum exercises, range of motion of left elbow, hand, wrist. Nonweightbearing for 6 weeks postoperatively on the left upper extremity. Allergies/Adverse Reactions: Allergies adhesive tape Allergy (Verified 06/28/18 11:52) BLISTERS/SCARS codeine Allergy (Verified 06/28/18 11:52) Shortness of breath Sulfa (Sulfonamide Antibiotics) Allergy (Verified 06/28/18 11:52) Rash Tetanus Vaccines and Toxoid [Tetanus Vaccines & Toxoid] Allergy (Verified 06/28/18 11:52) Swelling meperidine HCl [From Demerol] Adverse Reaction (Verified 06/28/18 11:52) Itching STERISTRIPS Allergy (Uncoded 06/28/18 11:52) BLISTERS/SCARS Medications to take at Discharge Fluoxetine [Prozac] 20 mg PO DAILY 06/05/14 Cholecalciferol (Vitamin D3) [Vitamin D3] 10,000 unit PO DAILY 06/28/18 Levothyroxine Sodium [Synthroid] 125 mcg PO DAILY 06/28/18 Metformin HCl [Metformin HCl ER] 1,000 mg PO DAILY 06/28/18 Simvastatin 20 mg PO QHS 06/28/18 Acetaminophen [Tylenol] 1,000 mg PO Q8 #0 tablet 07/01/18 Aspirin [Aspirin, Baby] 81 mg PO BIDCM tab.chew 07/01/18 Famotidine [Pepcid] 20 mg PO DAILY #12 tablet 07/01/18 Oxycodone [Oxyir] 10 mg PO Q4H PRN PRN 5 Days #60 tablet 07/01/18 Vancomycin IV 1,250 mg IV Q12H 40 Days #80 vial 07/01/18 The following prescriptions were given: Oxycodone [Oxyir] 10 mg PO Q4H PRN PRN 5 Days #60 tablet PRN Reason: Severe Pain (-02/10) Famotidine [Pepcid] 20 mg PO DAILY #12 tablet Vancomycin IV 1,250 mg IV Q12H 40 Days #80 vial Primary Care Physician: Diana Martinez DO [Primary Care Provider] - Test Results: Test results from this visit will be discussed in further detail at your follow- up appointment, if applicable. Please Follow Up With: Eduardo Sorto MD When: 07/12/18 @ 11:00 am Please Follow Up With: Sim Garcia MD When: follow up in 2-3 weeks
--- NOTE | 2018-07-01 10:13 | PN.ID_ITS ---
Subjective: Feeling well, pain controlled, no fever, no n/v/d. - Physical Exam General: Alert, Cooperative, No apparent distress Lungs: Clear to auscultation, Normal air movement Cardiovascular: Regular rate, Regular Rhythm Abdomen: Soft, Non Tender, Non-Distended Skin: Incision - shoulder wrapped Vital Signs Temp Pulse Resp BP Pulse Ox 97.8 F 66 16 136/79 H 99 07/01/18 08:55 07/01/18 08:55 07/01/18 08:55 07/01/18 08:55 07/01/18 08:55 Oxygen Flow Rate (L/min) [3] 2 Oxygen Flow Rate (L/min) [2] 2 Oxygen Flow Rate (L/min) [1 ( 2 Initial Baseline)] Oxygen Flow Rate (L/min) 2 Oxygen Delivery Method [3] Nasal Cannula Oxygen Delivery Method [2] Nasal Cannula Oxygen Delivery Method [1 ( Nasal Cannula Initial Baseline)] Oxygen Delivery Method Room Air Weight: 141.3 kg Body Mass Index (BMI) 53.4 Finger Stick Blood Glucose 168 Intake and Output for Last 24 Hours 06/29/18 06/30/18 07/01/18 23:59 23:59 23:59 Intake Total 3731 / 3731 4123 / 4123 500 / 500 Output Total 2200 / 2200 2800 / 2800 1300 / 1300 Balance 1531 / 1531 1323 / 1323 -800 / -800 Microbiology Past 72 Hours 06/29/18 15:30 Gram Stain - Final Tissue - Shoulder Wound Culture - Preliminary 06/29/18 15:30 Gram Stain - Final Tissue - Shoulder Wound Culture - Preliminary 06/29/18 15:30 Gram Stain - Final Tissue - Shoulder Wound Culture - Preliminary 06/28/18 12:50 Blood Culture - Preliminary Blood Culture (Wb) - Pic No growth in 48 hours. 06/28/18 12:30 Blood Culture - Preliminary Blood Culture (Wb) - Right Forearm No growth in 48 hours. Laboratory Tests Past 24 Hrs 06/30/18 07/01/18 09:35 03:48 Vancomycin Trough 21.4 H 17.1 H POC Glucose 07/01/18 06/30/18 06/30/18 06:27 21:32 16:40 POC Glucose 131 H 137 H 142 H 06/30/18 11:08 POC Glucose 121 H Medical Necessity - Tobacco Use Smoking Status: Never smoker Route of nutrition/ use of supplements: [] Nutritional Intake: [] IV Site: [] Jang Catheter: [] - Assessment/Plan Antibiotics: [] Assessment/Plan: [] DEREK Modi shoulder PJI - s/p debridement 06/[address] Sorto. Presented with heavy drainage. Cxs neg so far. Continue vanc. Taken to OR 06/[address] Sorto for spacer placement. Asked micro lab to hold surg cxs for 14 days. Plan is for d/c home on iv vanc, stop date 08/09/18, weekly bmp, cbc, esr, vanc trough. ID followup with me at wound center in 2-3 weeks. Will follow, rx written, d/w ortho and classification case manager
[2018-07-01 11:31] LABS: Bedside Glucose 134 mg/dL (70-110)
--- NOTE | 2018-07-01 14:14 | PCM.PROGNOTE ---
Subjective: All events of the past 24 hours of been reviewed. Afebrile since admission. Vital signs are stable. 95-99% saturation on room air Sugars are very well controlled States her pain is adequately controlled Denies painful swallowing, sores in her mouth, vaginal discharge or itching and diarrhea. Going home today on IV VAnco - has a PICC Objective: PHYSICAL EXAM: GENERAL: alert, oriented X 3, Cooperative, NAD ORAL: moist mucosa, no mucosal lesions NECK: No JVD, supple, trachea midline LUNGS: CTA, symmetric chest expansion HEART: RRR, Normal S1 and S2, no rub, no gallop ABDOMEN: soft, NT, ND, BS present, no guarding with palpation, obese EXTREMITIES: no edema, no cyanosis, no calf tenderness, Left shoulder is dressed and in a sling SKIN: No rashes, no breakdown NEUROLOGIC: no focal neurologic deficits PSYCH: appropriate, normal affect, pleasant - Physical Exam Vital Signs Temp Pulse Resp BP Pulse Ox 97.8 F 66 16 136/79 H 99 07/01/18 08:55 07/01/18 08:55 07/01/18 08:55 07/01/18 08:55 07/01/18 08:55 Oxygen Flow Rate (L/min) [3] 2 Oxygen Flow Rate (L/min) [2] 2 Oxygen Flow Rate (L/min) [1 ( 2 Initial Baseline)] Oxygen Flow Rate (L/min) 2 Oxygen Delivery Method [3] Nasal Cannula Oxygen Delivery Method [2] Nasal Cannula Oxygen Delivery Method [1 ( Nasal Cannula Initial Baseline)] Oxygen Delivery Method Room Air Weight: 311 lb 8.211 oz Body Mass Index (BMI) 53.4 Finger Stick Blood Glucose 168 Intake and Output for Last 24 Hours 06/29/18 06/30/18 07/01/18 23:59 23:59 23:59 Intake Total 3731 / 3731 4123 / 4123 500 / 500 Output Total 2200 / 2200 2800 / 2800 1300 / 1300 Balance 1531 / 1531 1323 / 1323 -800 / -800 Microbiology Past 72 Hours 06/29/18 15:30 Gram Stain - Final Tissue - Shoulder Wound Culture - Preliminary 06/29/18 15:30 Gram Stain - Final Tissue - Shoulder Wound Culture - Preliminary 06/29/18 15:30 Gram Stain - Final Tissue - Shoulder Wound Culture - Preliminary 06/28/18 12:50 Blood Culture - Preliminary Blood Culture (Wb) - Pic No growth in 48 hours. 06/28/18 12:30 Blood Culture - Preliminary Blood Culture (Wb) - Right Forearm No growth in 48 hours. Laboratory Tests Past 24 Hrs 07/01/18 03:48 Vancomycin Trough 17.1 H POC Glucose 07/01/18 07/01/18 06/30/18 11:21 06:27 21:32 POC Glucose 134 H 131 H 137 H 06/30/18 16:40 POC Glucose 142 H Medical Necessity - Tobacco Use Smoking Status: Never smoker Assessment/Plan All Active Problems (Last Updated 06/11/18 @ 14:23 by Opal Peraza MD) Infection of prosthetic shoulder joint (Acute) Impressions 1. DM II - controlled 2. 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 LUIS-compliant with CPAP 4. Hypothyroidism 5. Anxiety/depression 6. Hyperlipidemia Discharge home today on vancomycin with a stop date of 08/09/2018. Weekly BMP, CBC, ESR and vancomycin trough while on vancomycin. Follow-up with Dr. Garcia in the wound care center in 2-3 weeks. Follow-up with Dr. Sorto as directed by orthopedics Code Visit Inpatient E&M: 33488 Subs Hosp L1
[2018-07-01 14:50] VITALS: BP 147/87; PULSE 69; RESP 18; TEMP 36.8; O2SAT 98
[2018-07-01] MEDS: 0.9% NaCl Peripheral Flush Adult/Peds IV ×2 (16:01→18:02)
[2018-07-01] MEDS: Mag Hydrox/Al Hydrox/Simeth 30 ML UDC PO (16:06)
[2018-07-01 16:10] LABS: Bedside Glucose 110 mg/dL (70-110)
--- NOTE | 2018-07-02 16:26 | CASEMGMT ---
ASH ALFREDO Discharge F/U Phone Call Strata: 4 Discharge date: 07/01/18 Call date: 07/02/18 Call time: 1628 Attempted to reach pt without success, message left for pt to call Aureliano ALEMAN CM back if able. [facility] ASH ALFREDO Admission dx: Septic shoulder
--- NOTE | 2018-07-05 12:58 | PCM.DC.SUM ---
Discharge Date and Diagnosis Date of Admission: 06/28/18 Date of Discharge: 07/29/18 - Secondary Discharge Diagnosis Chronic Problems (Last Updated 06/11/18 @ 14:23 by Opal Peraza MD) Obstructive sleep apnea (Chronic) Wears CPAP Hypothyroidism (Chronic) Diabetes mellitus, type II (Chronic) Abnormal EKG (Chronic) Postop ekg changes along with elevated troponin 03/11/18 Hospital Course and Treatment Summary of Care Provided: Patient is a 62-year-old female with history of posttraumatic osteoarthritis and rotator cuff dysfunction. In March 2018 patient had removal of hardware and left reverse total shoulder replacement. Patient had drainage and positive methicillin-resistant staph epi infection with irrigation debridement 3 weeks ago. Patient had progressive swelling starting 2 weeks postop. Initial x-rays showed well aligned shoulder but 1 week later had increased fluid and drainage from the wound. She presented to the emergency room where she had a dislocated reverse shoulder replacement. After failing conservative measures, the patient opted to proceed with a explant left total shoulder replacement with placement of antibiotic spacer. The patient underwent the above-stated procedure on July 27, 2018. Patient did receive perioperative antibiotics. Intraoperatively was uneventful. For details please see dictated operative note. The patient was placed in thigh-high teds, bilateral SCDs, remained stable in recovery. Patient was admitted to the 3rd floor at [facility]. The patient's pain was managed with the use of IV and p.o. pain medications. Patient participated in physical therapy. Medicine was contacted for postoperative medical management. Infectious disease consult was also obtained and patient will continue with IV antibiotics per infectious disease ?6 weeks postoperatively. Patient was discharged on postoperative day 3 to home with home health. Patient was given medications stated below. Patient will follow up with [facility] per postop instructions for reassessment. - Physical Exam Vital Signs Temp Pulse Resp BP Pulse Ox 98.3 F 69 18 147/87 H 98 07/01/18 14:50 07/01/18 14:50 07/01/18 14:50 07/01/18 14:50 07/01/18 14:50 Oxygen Flow Rate (L/min) [3] 2 Oxygen Flow Rate (L/min) [2] 2 Oxygen Flow Rate (L/min) [1 ( 2 Initial Baseline)] Oxygen Flow Rate (L/min) 2 Oxygen Delivery Method [3] Nasal Cannula Oxygen Delivery Method [2] Nasal Cannula Oxygen Delivery Method [1 ( Nasal Cannula Initial Baseline)] Oxygen Delivery Method Room Air Weight: 141.3 kg Body Mass Index (BMI) 53.4 Finger Stick Blood Glucose 168 Microbiology Past 72 Hours 06/29/18 15:30 Gram Stain - Final Tissue - Shoulder Wound Culture - Preliminary Anaerobic Culture - Final No growth in 5 days. 06/29/18 15:30 Gram Stain - Final Tissue - Shoulder Wound Culture - Preliminary Anaerobic Culture - Final No growth in 5 days. 06/29/18 15:30 Gram Stain - Final Tissue - Shoulder Wound Culture - Preliminary Anaerobic Culture - Final No growth in 5 days. 06/28/18 12:50 Blood Culture - Final Blood Culture (Wb) - Pic No growth in 5 days. 06/28/18 12:30 Blood Culture - Final Blood Culture (Wb) - Right Forearm No growth in 5 days. Discharge Diet: 1800 Calorie Control Diet Discharge Activity: May Not Drive May shower in (days): 1 - Must cover a PICC line Ice area for (Minutes): 20 - Every 1-2 hours while awake Weight Bearing Status: No weight bearing - Left upper extremity Keep extremity elevated above heart level: Operative Extremity Call your doctor if your incision/area has: Continuous Slow Oozing, Sudden Increased Bleeding, Increased Pain/ Swelling, Increased Redness, Foul Smelling Discharge Call your doctor if you observe: Fever of 101 or Higher, Coldness, Increased Pain, Numbness or Tingling, Change in Color Remove Dressing in (days):: 3 - Okay to remove dressing on July 04, 2018 Home Medications: Medications to take at Discharge Fluoxetine [Prozac] 20 mg PO DAILY 06/05/14 Cholecalciferol (Vitamin D3) [Vitamin D3] 10,000 unit PO DAILY 06/28/18 Levothyroxine Sodium [Synthroid] 125 mcg PO DAILY 06/28/18 Metformin HCl [Metformin HCl ER] 1,000 mg PO DAILY 06/28/18 Simvastatin 20 mg PO QHS 06/28/18 Acetaminophen [Tylenol] 1,000 mg PO Q8 #0 tablet 07/01/18 Aspirin [Aspirin, Baby] 81 mg PO BIDCM tab.chew 07/01/18 Famotidine [Pepcid] 20 mg PO DAILY #12 tablet 07/01/18 Oxycodone [Oxyir] 10 mg PO Q4H PRN PRN 5 Days #60 tablet 07/01/18 Vancomycin IV 1,250 mg IV Q12H 40 Days #80 vial 07/01/18 Following Prescrptions Were Given to Patient: Oxycodone [Oxyir] 10 mg PO Q4H PRN PRN 5 Days #60 tablet PRN Reason: Severe Pain (6-02/10) Famotidine [Pepcid] 20 mg PO DAILY #12 tablet Vancomycin IV 1,250 mg IV Q12H 40 Days #80 vial Primary Care Physician: Diana Martinez DO [Primary Care Provider] - Please Follow Up With: Eduardo Sorto MD When: 07/12/18 @ 11:00 am Please Follow Up With: Sim Garcia MD When: follow up in 2-3 weeks Additional Instructions: Follow [facility] postop instructions For constipation take [id number] stool softener until first bowel movement, then as needed. Physical therapy/exercises: Range of motion restrictions left shoulder: Forward flexion 70 degrees, abduction 70 degrees, external rotation to neutral. Okay to work on pendulum exercises, range of motion of left elbow, hand, wrist. Nonweightbearing for 6 weeks postoperatively on the left upper extremity. Medical Necessity - Tobacco Use Smoking Status: Never smoker Meaningful Use Info Meaningful Use Diagnoses (Choose all that apply): None applicable
== END 2018-07-01 18:53 | disposition home or self-care (01) | DRG 496 ==
LOC: ED 16:55 → MS3 16:59
PROVIDERS: Anesthesiology; Family Medicine; Admitting Provider Specialist; Emergency Provider Emergency Medicine; Family Provider Internal Medicine; PCP Internal Medicine; Referring Provider Specialist; Visit Provider Internal Medicine
PROC: 0RPK0JZ Removal of Synthetic Substitute from Left Shoulder Joint, Open Approach (ICD-10-PCS; principal; 2018-06-29 14:15)
DX: T84.59XA Infection and inflammatory reaction due to other internal joint prosthesis, initial encounter (principal); M00.012 Staphylococcal arthritis, left shoulder; Z68.43 Body mass index [BMI] 50.0-59.9, adult; T84.028A Dislocation of other internal joint prosthesis, initial encounter; E66.01 Morbid (severe) obesity due to excess calories; E03.9 Hypothyroidism, unspecified; Z96.612 Presence of left artificial shoulder joint; G47.33 Obstructive sleep apnea (adult) (pediatric); B95.7 Other staphylococcus as the cause of diseases classified elsewhere; E11.9 Type 2 diabetes mellitus without complications; E78.5 Hyperlipidemia, unspecified; F41.9 Anxiety disorder, unspecified; F32.9 Major depressive disorder, single episode, unspecified; Z79.84 Long term (current) use of oral hypoglycemic drugs
CPT/HCPCS: 36415; 36592; 73020; 73030; 78452; 80048; 80202; 82962; 83036; 83735; 84443; 84484; 85025; 85652; 86140; 87015; 87040; 87070; 87075; 87102; 87116; 87205; 87206; 93005; 93017; 94762; 97165; 97530; 97802; 99152; 99282; A9500; C1776; J7030; J7040; J7050; A4216; J2405; J2785; J3260

== ENCOUNTER 2018-07-19 10:50 | Outpatient (RCR) | payer OTHER, SELFPAY ==
[2018-07-02 01:41] VITALS: BMI 52.7
[2018-07-05 14:13] LABS: Hematocrit 34.3 % (37-47); Hemoglobin 10.8 g/dl (12.0-15.0); Mean Corp Hgb Conc 31.5 g/gl (32-36); Mean Corpuscular Volume 95.3 fL (81-99); Mean Platelet Vol. 9.7 fl (6.2-12.0); Platelet Count 200 K/mm3 (150-450); RBC Distribution Width CV 13.8 % (11.6-14.6); RBC Distribution Width SD 45.1 fl (35.1-43.9)
[2018-07-05 14:15] LABS: Erythrocyte Sedimentation Rate 30 mm/hr (0-30)
[2018-07-05 14:16] LABS: Scan Indicated on CBC? Y/N NO
[2018-07-05 14:17] LABS: Anion Gap 11 (5-15); BUN 13 mg/dL (7-18); BUN/Creat Ratio 14.5 RATIO (10-20); Calcium,Total 8.4 mg/dL (8.5-10.1); Chloride 104 mmol/L (98-107); EST Glomerular Filtration Rate 68 mL/min (>60); Est Glom Filt Rate - Afr Amer 82 mL/min (>60); Glucose 145 mg/dL (74-106); Potassium 3.8 mmol/L (3.5-5.1); Sodium Level 140 mmol/L (136-145)
[2018-07-05 14:20] LABS: Vancomycin, Trough Level 11.6 ug/mL (5.0-15.0)
[2018-07-12 11:23] LABS: Hematocrit 34.3 % (37-47); Hemoglobin 10.9 g/dl (12.0-15.0); Mean Corp Hgb Conc 31.8 g/gl (32-36); Mean Corpuscular Volume 94.5 fL (81-99); Mean Platelet Vol. 9.7 fl (6.2-12.0); Platelet Count 212 K/mm3 (150-450); RBC Distribution Width CV 13.5 % (11.6-14.6); RBC Distribution Width SD 44.6 fl (35.1-43.9); Red Blood Count 3.63 M/mm3 (4.2-5.4); White Blood Count 7.2 K/mm3 (4.4-11.0)
[2018-07-12 11:24] LABS: Scan Indicated on CBC? Y/N NO
[2018-07-12 11:29] LABS: Erythrocyte Sedimentation Rate 23 mm/hr (0-30)
[2018-07-12 11:32] LABS: Anion Gap 13 (5-15); BUN 15 mg/dL (7-18); Calcium,Total 8.6 mg/dL (8.5-10.1); Chloride 105 mmol/L (98-107); Creatinine, Serum 0.94 mg/dL (0.55-1.02); EST Glomerular Filtration Rate 65 mL/min (>60); Est Glom Filt Rate - Afr Amer 78 mL/min (>60); Glucose 151 mg/dL (74-106); Potassium 3.6 mmol/L (3.5-5.1); Sodium Level 141 mmol/L (136-145)
[2018-07-12 11:36] LABS: Vancomycin, Trough Level 14.1 ug/mL (5.0-15.0)
[2018-07-19 11:20] LABS: Erythrocyte Sedimentation Rate 20 mm/hr (0-30)
[2018-07-19 11:22] LABS: Hematocrit 35.5 % (37-47); Hemoglobin 11.3 g/dl (12.0-15.0); Mean Corp Hgb Conc 31.8 g/gl (32-36); Mean Corpuscular Hgb 29.8 pg (27.0-32.0); Mean Corpuscular Volume 93.7 fL (81-99); Mean Platelet Vol. 9.4 fl (6.2-12.0); Platelet Count 224 K/mm3 (150-450); RBC Distribution Width CV 13.5 % (11.6-14.6); RBC Distribution Width SD 44.7 fl (35.1-43.9); Red Blood Count 3.79 M/mm3 (4.2-5.4); White Blood Count 6.1 K/mm3 (4.4-11.0)
[2018-07-19 11:23] LABS: Anion Gap 8 (5-15); BUN 12 mg/dL (7-18); BUN/Creat Ratio 12.4 RATIO (10-20); Calcium,Total 8.8 mg/dL (8.5-10.1); Chloride 107 mmol/L (98-107); Creatinine, Serum 0.97 mg/dL (0.55-1.02); EST Glomerular Filtration Rate 62 mL/min (>60); Est Glom Filt Rate - Afr Amer 75 mL/min (>60); Glucose 173 mg/dL (74-106); Potassium 3.8 mmol/L (3.5-5.1); Sodium Level 141 mmol/L (136-145)
[2018-07-19 11:24] LABS: Scan Indicated on CBC? Y/N NO
[2018-07-19 11:25] LABS: Vancomycin, Trough Level 14.2 ug/mL (5.0-15.0)
== END 2018-08-01 23:59 ==
LOC: LABSPEC 10:50
PROVIDERS: Family Provider Internal Medicine; PCP Internal Medicine; Referring Provider Internal Medicine Infectious Disease; Visit Provider Internal Medicine Infectious Disease
DX: T84.59XA Infection and inflammatory reaction due to other internal joint prosthesis, initial encounter (principal); B95.8 Unspecified staphylococcus as the cause of diseases classified elsewhere; F32.9 Major depressive disorder, single episode, unspecified; E03.9 Hypothyroidism, unspecified; E66.01 Morbid (severe) obesity due to excess calories; Z68.43 Body mass index [BMI] 50.0-59.9, adult; Z79.84 Long term (current) use of oral hypoglycemic drugs; Z79.82 Long term (current) use of aspirin; Z79.891 Long term (current) use of opiate analgesic; Z99.89 Dependence on other enabling machines and devices; Z87.828 Personal history of other (healed) physical injury and trauma
CPT/HCPCS: 80048; 80202; 85027; 85652

== ENCOUNTER → 2018-07-21 13:57 | Outpatient (CLI) | payer OTHER, SELFPAY ==
[2018-07-21 13:44] VITALS: BMI 53.4
--- NOTE | 2018-07-21 15:30 | VDUE_ITS ---
Reason For Study: SWELLING Right Proximal Right jugular vein is spontaneous, widely patent, phasic, with no intraluminal echogenicity noted. Rt Subclavian, Rt Basilic (at junction of Axillary ) and Rt Axillary are dilated and partially compressible with reduced doppler flow signal. Right Lower Arm Right radial vein is compressible. Right ulnar vein is compressible. Right Arm Right brachial vein is compressible. Right cephalic vein is compressible. Interpretation Summary Acute deep vein thrombosis is noted in the right subclavian vein and axillary vein. The remainder of the right upper extremity deep venous system appears patent. Acute superficial thrombophlebitis is noted in the right basilic vein at its junction with the right axillary vein. The right cephalic vein is patent and compressible. Ordering Physician: Sim Garcia Referring Physician: CRYSTAL FULLER Performed By: Nikki Osborne, HARVINDER, RVT ?
== END ==
PROVIDERS: Family Provider Internal Medicine; PCP Internal Medicine; Referring Provider Internal Medicine Infectious Disease; Visit Provider Internal Medicine Infectious Disease
DX: M79.89 Other specified soft tissue disorders (principal); R20.2 Paresthesia of skin
CPT/HCPCS: 93971

== ENCOUNTER 2018-07-21 16:47 | Emergency (ER) | payer OTHER, SELFPAY ==
[2018-07-21 13:44] VITALS: BMI 53.4
[2018-07-21 16:49] VITALS: BP 169/62; PULSE 93; RESP 15; TEMP 36.3; O2SAT 97; BMI 52.2
--- NOTE | 2018-07-21 17:30 | NURSING ---
PAGED INFECTION CONTROL
--- NOTE | 2018-07-21 18:24 | ED.DCSUM_ITS ---
- ER Visit Summary Date of Service: 07/21/18 Chief Complaint: Right upper extremity DVT History of Present Illness: The patient is a 62 F who had shoulder surgery in March and then developed a staph infection. She had a PICC line placed for antibiotics on June 11. She takes vancomycin twice a day. She had to have an additional surgery to remove her hardware on June 28. At that point they restarted her 6-week course of IV antibiotics. Patient has noted right arm swelling since the . She was seen by infectious disease and outpatient ultrasound was ordered. That was done today that reveals a partially compressible right subclavian, right basilic, and right axillary vein. Physical Examination: Vital signs significant only for blood pressure 169/62. Patient sitting upright in bed no acute distress. Head neck examination unremarkable. Heart is regular rate and rhythm. Lung sounds clear. Left upper extremity examination reveals a healed incision of the left shoulder without sign of infection. Right upper extremity exam reveals mild edema. PICC line is in place and the site is clean. She has full range of motion with strong distal pulses and normal cap refill. Test Results: Venous ultrasound report is reviewed. Emergency Department Course and Treatment: I initially spoke with Dr. Sorto, the patient's orthopedic surgeon. He asked me to talk to infectious disease as they were managing the patient's PICC line. I spoke with Dr. Sandhu. He states that the PICC line is the only access we have for antibiotics at this point and needs to remain in place. Patient be started on Xarelto to dissolve the clot and she will continue to use the current PICC line. When asked about repeat ultrasound, he referred patient to primary care physician for this. I then spoke with the patient's primary care doctor, Dr. Martinez. She will fax an order for the patient have a repeat ultrasound early next week. She will see the patient in the office for follow-up as well. Patient is comfortable with this plan. She will receive first dose of Xarelto here and will receive a prescription for the first 21 days. Treatment Plan: [] Disposition: Discharge Impression: Right upper extremity DVT This note was generated with [email or web address] dictation software. It may contain incorrect words, spelling, and punctuation that were not noted in review of the chart prior to signing ED Disposition - Plan for ED Patient: Referrals: Diana Martinez, [Primary Care Provider] -
--- NOTE | 2018-07-21 18:25 | ED.DEP ---
ED Disposition - Plan for ED Patient: Disposition: Home or Assisted Living Instructions: ED DVT Prescriptions: Rivaroxaban [Xarelto] 15 mg PO BID #42 tablet Referrals: Diana Martinez DO [Primary Care Provider] - 5-7 Days
[2018-07-21] MEDS: Rivaroxaban 15 MG Tablet PO (18:45)
[2018-07-21 18:46] VITALS: BP 145/76; PULSE 82; RESP 18; O2SAT 96
--- NOTE | 2018-07-21 19:53 | CM.ED ---
SOCIAL WORK NOTE RECEIVED CALL FROM PATIENT STATING CANNOT AFFORD MEDICATION, XARELTO. PATIENT REQUESTING TO SPEAK WITH DR. ROLDAN TO DISCUSS OTHER OPTIONS FOR TREATMENT OF DVT. DR. ROLDAN INFORMED THIS WORKER THERE IS NO OTHER OPTIONS OTHER THAN ELIQUIS. INFORMED PATIENT OF COUPONS AVAILABLE ONLINE. PATIENT STATES WILL PRINT OFF COUPON AND TAKE TO [facility]. PATIENT DENIES ANY OTHER NEEDS. BRENDA GONZALEZ, VETERINARY POULTRY INSPECTOR, CLINICAL SCIENCES PROFESSOR.
== END 2018-07-21 18:47 | disposition home or self-care (01) ==
PROVIDERS: Emergency Provider Emergency Medicine; Family Provider Internal Medicine; PCP Internal Medicine
DX: I82.621 Acute embolism and thrombosis of deep veins of right upper extremity (principal); E11.9 Type 2 diabetes mellitus without complications; K21.9 Gastro-esophageal reflux disease without esophagitis; F32.9 Major depressive disorder, single episode, unspecified; F41.9 Anxiety disorder, unspecified; Z79.82 Long term (current) use of aspirin; Z79.84 Long term (current) use of oral hypoglycemic drugs; Z79.899 Other long term (current) drug therapy
CPT/HCPCS: 93971; 99283

== ENCOUNTER → 2018-07-23 11:20 | Outpatient (CLI) | payer OTHER, SELFPAY ==
[2018-07-21 16:49] VITALS: BMI 52.2
--- NOTE | 2018-07-23 | RAD_ITS ---
STUDY: PICC LINE OPACIFICATION REASON FOR EXAM: Female, 62 years old. PICC line malfunction. FLUOROSCOPY TIME (if supplied): (0:22) minutes/seconds TECHNIQUE: Intraoperative fluoroscopy. 11 intraoperative views. COMPARISON: None. FINDINGS: There is opacification of the PICC line the distal part is likely in the upper part of superior vena cava and lower internal jugular vein. The tip of the PICC line is in superior vena cava. There is partial kinking in the distal part of the PICC line. There is no evidence of extravasation. RAD/Con Inj Kishor Eval [facility] Fluro IMPRESSION: The tip of the PICC line is in superior vena cava. There is partial kinking in the distal part of the PICC line. There is no evidence of extravasation. Electronically Signed: Louei Carmona, at 16:16 EDT Tel , Service support ,
[2018-07-23] MEDS: Alteplase 2 MG/2 ML Vial IV (12:05)
--- NOTE | 2018-07-23 14:55 | NURSING ---
PT TRANSPORTED TO RADIOLOGY VIA WHEELCHAIR FOR PICC PATENCY STUDY
== END ==
PROVIDERS: Family Provider Internal Medicine; PCP Internal Medicine; Visit Provider Internal Medicine Infectious Disease
DX: T84.50XA Infection and inflammatory reaction due to unspecified internal joint prosthesis, initial encounter (principal); Z96.612 Presence of left artificial shoulder joint
CPT/HCPCS: 36593; 36598; J2997; Q9967; A4216

== ENCOUNTER 2018-07-26 13:01 | Outpatient (RCR) | payer OTHER, SELFPAY ==
[2018-07-26 13:23] LABS: Anion Gap 8 (5-15); BUN 15 mg/dL (7-18); BUN/Creat Ratio 14.7 RATIO (10-20); Calcium,Total 8.4 mg/dL (8.5-10.1); Chloride 107 mmol/L (98-107); Creatinine, Serum 1.02 mg/dL (0.55-1.02); EST Glomerular Filtration Rate 59 mL/min (>60); Est Glom Filt Rate - Afr Amer 71 mL/min (>60); Glucose 162 mg/dL (74-106); Potassium 4.4 mmol/L (3.5-5.1); Sodium Level 139 mmol/L (136-145)
[2018-07-26 13:25] LABS: Erythrocyte Sedimentation Rate 23 mm/hr (0-30); Vancomycin, Trough Level 11.5 ug/mL (5.0-15.0)
[2018-07-26 13:31] LABS: Hematocrit 33.7 % (37-47); Mean Corp Hgb Conc 32.6 g/gl (32-36); Mean Corpuscular Hgb 29.6 pg (27.0-32.0); Mean Corpuscular Volume 90.6 fL (81-99); Mean Platelet Vol. 9.4 fl (6.2-12.0); Platelet Count 199 K/mm3 (150-450); RBC Distribution Width CV 13.9 % (11.6-14.6); RBC Distribution Width SD 45.5 fl (35.1-43.9); Red Blood Count 3.72 M/mm3 (4.2-5.4)
[2018-07-26 13:33] LABS: Scan Indicated on CBC? Y/N NO
== END 2018-08-01 23:59 ==
LOC: HHLAB 13:01
PROVIDERS: Family Provider Internal Medicine; PCP Internal Medicine; Referring Provider Internal Medicine Infectious Disease; Visit Provider Internal Medicine Infectious Disease
DX: T84.50XA Infection and inflammatory reaction due to unspecified internal joint prosthesis, initial encounter (principal); B95.8 Unspecified staphylococcus as the cause of diseases classified elsewhere
CPT/HCPCS: 80048; 80202; 85027; 85652

== ENCOUNTER → 2018-07-29 10:41 | Outpatient (CLI) | payer OTHER, SELFPAY ==
[2018-07-21 16:49] VITALS: BMI 52.2
--- NOTE | 2018-07-29 10:44 | VDUE_ITS ---
Reason For Study: DVT Right Proximal Right Proximal Right jugular vein is spontaneous, widely patent, phasic, with no intraluminal echogenicity noted. Rt Subclavian, Rt Basilic (at junction of Axillary ) and Rt Axillary are dilated and partially compressible with reduced doppler flow signal. Right Lower Arm Right radial vein is compressible. Right ulnar vein is compressible. Right Arm Right brachial vein is compressible. Right cephalic vein is compressible. Interpretation Summary Acute deep vein thrombosis is noted in the right subclavian vein and axillary vein. The remainder of the right upper extremity deep venous system appears patent. Acute superficial thrombophlebitis is noted in the right basilic vein at its junction with the right axillary vein. The right cephalic vein is patent and compressible. There has been no significant change since a prior study on 07/21/2018. Ordering Physician: Diana Martinez Performed By: Segun Forman RVT ?
== END ==
PROVIDERS: Family Provider Internal Medicine; PCP Internal Medicine; Referring Provider Internal Medicine; Visit Provider Internal Medicine
DX: I82.621 Acute embolism and thrombosis of deep veins of right upper extremity (principal)
CPT/HCPCS: 93971

== ENCOUNTER 2018-08-02 11:54 | Outpatient (RCR) | payer OTHER, SELFPAY ==
[2018-08-02 01:44] VITALS: BMI 52.2
[2018-08-02 12:16] LABS: Erythrocyte Sedimentation Rate 26 mm/hr (0-30); Hematocrit 34.7 % (37-47); Mean Corp Hgb Conc 31.7 g/gl (32-36); Mean Corpuscular Hgb 28.6 pg (27.0-32.0); Mean Corpuscular Volume 90.1 fL (81-99); Mean Platelet Vol. 9.3 fl (6.2-12.0); Platelet Count 215 K/mm3 (150-450); RBC Distribution Width CV 13.9 % (11.6-14.6); RBC Distribution Width SD 45.9 fl (35.1-43.9); Red Blood Count 3.85 M/mm3 (4.2-5.4); White Blood Count 6.5 K/mm3 (4.4-11.0)
[2018-08-02 12:18] LABS: Scan Indicated on CBC? Y/N NO
[2018-08-02 12:34] LABS: Anion Gap 7 (5-15); BUN 10 mg/dL (7-18); BUN/Creat Ratio 9.7 RATIO (10-20); Calcium,Total 8.3 mg/dL (8.5-10.1); Chloride 107 mmol/L (98-107); Creatinine, Serum 1.03 mg/dL (0.55-1.02); EST Glomerular Filtration Rate 58 mL/min (>60); Est Glom Filt Rate - Afr Amer 70 mL/min (>60); Glucose 149 mg/dL (74-106); Sodium Level 139 mmol/L (136-145)
[2018-08-02 12:43] LABS: Vancomycin, Trough Level 14.1 ug/mL (5.0-15.0)
== END 2018-08-31 23:59 ==
LOC: HHLAB 11:54
PROVIDERS: Family Provider Internal Medicine; PCP Internal Medicine; Referring Provider Internal Medicine Infectious Disease; Visit Provider Internal Medicine Infectious Disease
DX: T85.79XA Infection and inflammatory reaction due to other internal prosthetic devices, implants and grafts, initial encounter (principal); B95.8 Unspecified staphylococcus as the cause of diseases classified elsewhere
CPT/HCPCS: 80048; 80202; 85027; 85652

== ENCOUNTER → 2018-08-09 11:57 | Outpatient (CLI) | payer OTHER, SELFPAY ==
[2018-08-02 01:44] VITALS: BMI 52.2
[2018-08-09 13:14] LABS: Absolute Lymphocyte Count 1.73 X10^3/ul (0.83-4.51); Absolute Neutrophil Count 3.8 X10^3/uL (2.0-7.7); Basophil# 0.02 X10^3/uL; Basophil% 0.3 % (0-1); Eosinophil# 0.22 X10^3/uL; Eosinophils% 3.5 % (0-5); Hematocrit 34.3 % (37-47); Hemoglobin 11.1 g/dl (12.0-15.0); Lymphocyte # 1.73 X10^3/ul (4.0); Lymphocyte % 27.6 % (19-41); Mean Corp Hgb Conc 32.4 g/gl (32-36); Mean Corpuscular Hgb 28.5 pg (27.0-32.0); Mean Corpuscular Volume 87.9 fL (81-99); Mean Platelet Vol. 9.7 fl (6.2-12.0); Monocyte# 0.49 X10^3/uL; Monocyte% 7.8 % (0-10); Neutrophil # 3.79 X10^3/uL (2.7-7.7); Neutrophil % 60.5 % (47-70); Platelet Count 229 K/mm3 (150-450); RBC Distribution Width CV 13.2 % (11.6-14.6); RBC Distribution Width SD 40.8 fl (35.1-43.9); White Blood Count 6.3 K/mm3 (4.4-11.0)
[2018-08-09 13:15] LABS: POSITIVE COUNT NO; POSITIVE DIFFERENTIAL NO; POSITIVE MORPHOLOGY NO
[2018-08-09 13:31] LABS: Erythrocyte Sedimentation Rate 27 mm/hr (0-30)
== END ==
PROVIDERS: Specialist; Family Provider Internal Medicine; PCP Internal Medicine; Visit Provider Internal Medicine Infectious Disease
DX: T84.59XA Infection and inflammatory reaction due to other internal joint prosthesis, initial encounter (principal)
CPT/HCPCS: 36415; 85025; 85652; 86140

== ENCOUNTER → 2018-08-23 12:23 | Outpatient (CLI) | payer OTHER, SELFPAY ==
[2018-08-02 01:44] VITALS: BMI 52.2
[2018-08-19 10:49] VITALS: BMI 52.5
--- NOTE | 2018-08-23 12:47 | VDUE_ITS ---
Reason For Study: HX DVT Right Proximal Right jugular vein is spontaneous, widely patent, phasic, with no intraluminal echogenicity noted. Right subclavian vein is spontaneous, widely patent, phasic, with no intraluminal echogenicity noted. Right Lower Arm Right radial vein is compressible. Right ulnar vein is compressible. Right Arm Right axillary vein is dilated with intraluminal echogenicity noted and diminished Doppler flow noted. Right brachial vein is compressible. Right cephalic vein is compressible. Right basilic vein is compressible. Interpretation Summary Acute deep vein thrombosis is noted in the right axillary vein. The remainder of the right upper extremity deep venous system is patent. The superficial veins of the right upper extremity, the basilic and cephalic veins, are patent and compressible. There is no evidence of right upper extremity superficial thrombophlebitis involving the veins imaged. There has been mild improvement since a prior study on 07/29/2018. Ordering Physician: Jeremy Chahal Referring Physician: CRYSTAL FULLER Performed By: ?
[2018-08-23 13:37] LABS: Absolute Lymphocyte Count 1.57 X10^3/ul (0.83-4.51); Absolute Neutrophil Count 3.9 X10^3/uL (2.0-7.7); Basophil# 0.02 X10^3/uL; Basophil% 0.3 % (0-1); Eosinophil# 0.16 X10^3/uL; Eosinophils% 2.7 % (0-5); Hematocrit 35.5 % (37-47); Hemoglobin 11.3 g/dl (12.0-15.0); Lymphocyte # 1.57 X10^3/ul (4.0); Lymphocyte % 26.1 % (19-41); Mean Corp Hgb Conc 31.8 g/gl (32-36); Mean Corpuscular Hgb 28.3 pg (27.0-32.0); Mean Platelet Vol. 9.6 fl (6.2-12.0); Monocyte# 0.36 X10^3/uL; Neutrophil % 64.7 % (47-70); Platelet Count 216 K/mm3 (150-450); RBC Distribution Width CV 13.9 % (11.6-14.6); RBC Distribution Width SD 45.2 fl (35.1-43.9); Red Blood Count 3.99 M/mm3 (4.2-5.4)
[2018-08-23 13:42] LABS: POSITIVE COUNT NO; POSITIVE DIFFERENTIAL NO; POSITIVE MORPHOLOGY NO
[2018-08-23 15:01] LABS: Erythrocyte Sedimentation Rate 23 mm/hr (0-30)
== END ==
PROVIDERS: Specialist; Family Provider Internal Medicine; PCP Internal Medicine; Referring Provider Internal Medicine Medical Oncology; Visit Provider Internal Medicine Medical Oncology
DX: T84.59XD Infection and inflammatory reaction due to other internal joint prosthesis, subsequent encounter (principal); I82.A11 Acute embolism and thrombosis of right axillary vein; I82.B11 Acute embolism and thrombosis of right subclavian vein
CPT/HCPCS: 36415; 85025; 85652; 86140; 93971

== ENCOUNTER 2018-10-06 06:38 | Inpatient (IN) | payer OTHER, SELFPAY ==
[2018-06-23 09:57] VITALS: BMI 52.3
[2018-08-25 13:40] VITALS: BMI 52.4
--- NOTE | 2018-09-10 13:09 | PCM.HP.BLA ---
History and Physical DATE OF SURGERY: 10/06/2018 SCHEDULED PROCEDURE: left shoulder removal antibiotic spacer to a reverse total shoulder arthroplasty HISTORY OF PRESENT ILLNESS: Preoperative history and physical exam was performed on September 10, 2018. This is a 62-year-old female who is been patient of Dr. Eduardo Sorto. Patient has had multiple surgeries on the left shoulder. Initial surgery was done by Dr. Leobardo Johnson for an open reduction internal fixation humeral head and neck fracture on March 13, 2017. Patient then underwent a reverse total shoulder arthroplasty by Dr. Eduardo Sorto on March 10, 2018. Patient required an irrigation debridement with exchange of Luis is here and humeral base plate on June 09, 2018. Patient then dislocated which required antibiotic spacer on April 28, 2019. Patient has been on IV antibiotics since the previous surgery. She has been followed by infectious disease. Patient did obtain a DVT from her PICC line in which she is currently taking Xarelto. Patient is followed by Dr. Chahal and will be requiring anticoagulation until November 2018. Patient does complain of pain with motion of the left shoulder. She has continued to take [id number] medications. Patient denies any recent fevers, chills, recent infections. Denies chest pain or shortness of breath. After discussion with Dr. Eduardo Sorto, the patient does wish to proceed with a removal antibiotic spacer with placement of left reverse total shoulder arthroplasty. We have obtain surgical clearance from Dr. Chahal and recommend stopping the Xarelto 24 hours prior to surgery and to resume postoperative day #1. REVIEW OF SYSTEMS: ROS: Const: Reports difficulty sleeping, but denies anorexia, anxiety, change in appetite, fever, weight change. CV: Denies chest pain, heart murmur, irregular heartbeat and peripheral vascular disease. Resp: Reports asthma and sleep apnea, but denies cough, pneumonia, shortness of breath, tuberculosis and wheezing. GI: Denies constipation, diarrhea, heartburn, nausea, rectal itching, bloody stools, urinary incontinence and vomiting. : Reports incontinence. Musculo: Denies leg swelling, pain, trouble walking and weakness. Skin: Reports history of shingles, but denies Raynaud's and tattoo. Neuro: Denies ambulatory dysfunction, dizziness, numbness/tingling and tremor. Psych: Reports depression, but denies anxiety, insomnia, mental illness and stress. Manuel/Lymph: Denies anemia, bleeding/bruising tendency and past transfusion. Reviewed, no changes. PAST MEDICAL HISTORY: Advance Care Plan: No Advance Directives Effective Date: 03/11/2017 PMH: Medical Problems: Asthma, Diabetes, Thyroid Disease, History Of Phlebitis Accidents: Fracture - rt elbow, shoulder Surgical Hx: Appendectomy - (1987) Gallbladder - (1988) Hysterectomy - (1987) Tonsillectomy - (1965) Hernia Repair, Ovarian Cyst, Gastric Bypass LT Shoulder ORIF - (03/13/2017) [email or web address] Reverse Total Shoulder - (03/10/2018) [email or web address] I & D,Poly Exchange LT Shoulder - (06/29/2018) [email or web address] Anesthesia Complications: None Assistive Devices: Glasses, Dentures, Contacts, Hearing Aid Reviewed, no changes. 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 Personal Habits: Cigarette Use: Never.Alcohol: Denies use.Drug Use: Denies Use.Enjoy Exercising: Never Exercises. Reviewed, no changes. VITALS: Ht: 65 Wt: 304lb Wt k.894 BMI: 50.6 BP: 132/84 Pulse: 70 Resp: 16 T: 97.1 T: 36.2C ALLERGIES: Tetanus - Swelling In Joints Codeine - Breathing Problems Sulfa - Hives Tape/Steri Strips - Tape/Steri Strips MEDICATIONS: Xarelto 20 mg 1 by mouth every day, Metformin HCL 1000 mg 1 by mouth daily, Levothyroxine Sodium 125 mcg one PO daily, Prozac 20 mg 1 by mouth every day PRE-OP EXAM: General appearance:NORMAL Other: Eyes: Conjunctivae and lids: NORMAL Pupils: ERR Ears, Nose, Mouth, and Throat: NORMAL Other: Inspection of lips, teeth and gums: NORMAL Other: Neck: Examination of neck: no masses noted. Respiratory: Assessment of respiratory effort: NORMAL Other: Auscultation of lungs: clear to auscultation no wheezes, rhonchi or rales. Cardiovascular: Auscultation of heart: regular rate and rhythm, no murmurs, gallops or rubs. Gastrointestinal: Exam of abdomen: soft, nontender, nondistended bowel sounds present. PHYSICAL EXAMINATION: Examination of the left shoulder reveals well-healed incision without erythema. Sensation was intact to light touch. Patient tolerated gentle motion of the left shoulder. Full range of motion of the left elbow. Motor intact AIN, PIN, and ulnar nerve. IMPRESSION: 1. Left shoulder antibiotic spacer 2. Type 2 diabetes mellitus 3. DVT left upper extremity from PICC line 4. Asthma 5. Thyroid disease PLAN: Dr. Eduardo Sorto did discuss and review with the patient all treatment options including surgical versus nonsurgical options. Patient does wish to proceed with the above-stated procedure. Potential risks, benefits, and complications of the procedure were discussed in detail including but not limited to , infection, nerve and blood vessel damage, persistent pain, numbness, tingling, paresthesias, blood clot, pulmonary embolism, and requirement for possible further surgery. The patient expressed full understanding and has no further questions for the doctor. Patient does agree to proceed with the above-stated procedure and has signed the surgery consent form. This dictation was created using voice recognition software. Phonetic and/or grammatical errors may exist.. ___ I have re-examined the patient. There are no clinical changes since date of exam. ___ See progress notes for changes. ___ Dictated on admission Date: Time: Signature:
[2018-09-24 10:13] VITALS: BP 146/87; PULSE 72; RESP 18; TEMP 36.2; O2SAT 97; BMI 52.2
[2018-09-24 11:53] LABS: Hematocrit 38.4 % (37-47); Hemoglobin 12.2 g/dl (12.0-15.0); Mean Corp Hgb Conc 31.8 g/gl (32-36); Mean Corpuscular Hgb 27.6 pg (27.0-32.0); Mean Corpuscular Volume 86.9 fL (81-99); Mean Platelet Vol. 10.4 fl (6.2-12.0); Platelet Count 261 K/mm3 (150-450); RBC Distribution Width CV 14.1 % (11.6-14.6); RBC Distribution Width SD 43.5 fl (35.1-43.9); Red Blood Count 4.42 M/mm3 (4.2-5.4); White Blood Count 8.6 K/mm3 (4.4-11.0)
[2018-09-24 11:57] LABS: Scan Indicated on CBC? Y/N NO
[2018-09-24 12:15] LABS: International Normalized Ratio 2.2; Prothrombin Time (Protime)PT. 24.4 SECONDS (11.7-14.9)
[2018-09-24 12:16] LABS: Partial Thromboplast Time 44.7 Seconds (24.1-36.2)
[2018-09-24 12:24] LABS: AST(SGOT) 54 U/L (15-37); Alanine Aminotransfer ALT/SGPT 48 U/L (13-56); Albumin, Serum 3.2 g/dL (3.2-5.0); Alkaline Phosphatase 141 U/L (45-117); Anion Gap 8 (5-15); BUN 20 mg/dL (7-18); BUN/Creat Ratio 18.7 RATIO (10-20); Bilirubin, Direct 0.21 mg/dL (0.00-0.30); Calcium,Total 8.7 mg/dL (8.5-10.1); Chloride 105 mmol/L (98-107); Creatinine, Serum 1.07 mg/dL (0.55-1.02); EST Glomerular Filtration Rate 55 mL/min (>60); Est Glom Filt Rate - Afr Amer 67 mL/min (>60); Estimated Creatinine Clearance 48.28 ml/min; Globulin 3.7 g/dL (2.2-4.2); Glucose 129 mg/dL (74-106); Potassium 4.1 mmol/L (3.5-5.1); Protein, Total 6.9 g/dL (6.4-8.2); Sodium Level 138 mmol/L (136-145); Thyroid Stim Hormone (TSH) 1.24 uIU/mL (0.358-3.74)
[2018-10-06] VITALS (13 sets, daily range): BP systolic 108–145; BP diastolic 50–81; PULSE 60–96; RESP 16–18; TEMP 36.1–37; O2SAT 87–100; BMI 52.2
[2018-10-06 07:32] LABS: International Normalized Ratio 1.2; Prothrombin Time (Protime)PT. 14.5 SECONDS (11.7-14.9)
[2018-10-06] MEDS: Acetaminophen 500 MG Tablet 1000 MG PO ×3 (07:41→21:54)
[2018-10-06] MEDS: oxyCODONE HCl Cr 10 MG Tablet PO (07:41)
[2018-10-06 07:51] LABS: Bedside Glucose 155 mg/dL (70-110)
[2018-10-06 08:19] LABS: Partial Thromboplast Time 29.8 Seconds (24.1-36.2)
[2018-10-06] MEDS: Heparin Injection (Vial) 5,000 UNIT/ML VIAL 5000 UNIT (10:19)
[2018-10-06] MEDS: Epinephrine (1 mg/ml) 1 MG/ML VIAL (10:20)
[2018-10-06] MEDS: Ketorolac 30 MG/ML Syringe (10:21)
--- NOTE | 2018-10-06 11:44 | PCM.OPRPT ---
Report of Operation Date of Procedure: 10/06/18 Pre-Operative Diagnosis: Left total shoulder infection, previous antibiotic spacer. Heterotopic ossification left shoulder Post-Operative Diagnosis: Left total shoulder infection, previous antibiotic spacer. Heterotopic ossification left shoulder Surgery/Procedure Performed:: Revision left total shoulder replacement. Removal nonbiodegradable antibiotic delivery system. Osteectomy posterior heterotopic bone left shoulder electronic warfare operator: Mariola Mccormack Type of Anesthesia:: General Anesthesiologist: Romero Thomas Specimen's removed: 3 separate specimens were sent to microbiology Drains: 15 [place] LEO drain Estimated Blood Loss (mL): 300 Fluids Replaced: 1800 ML Grafts/Implants Used: Jose reunion total shoulder replacement - Complications No intraoperative complications - Admit VTE Documentation VTE Present on Admission: No VTE Mechan Device Prophylaxis: SCD's VTE Pharm Prophylaxis ordered?: Yes
[2018-10-06] MEDS: Scopolamine 1mg/72hr Patch 1 PATCH TD (12:15)
[2018-10-06 12:25] LABS: Bedside Glucose 163 mg/dL (70-110)
--- NOTE | 2018-10-06 12:45 | RAD_ITS ---
STUDY: X-RAY - LEFT SHOULDER REASON FOR EXAM: Female, 62 years old. Postop TECHNIQUE: 2 view(s) of the shoulder. COMPARISON: 06/29/2018 FINDINGS: The patient is status post left shoulder arthroplasty revision. The hardware is intact and alignment is satisfactory. There is no acute fracture or dislocation. RAD/Shoulder min 2 Views IMPRESSION: Status post left shoulder arthroplasty revision. Intact hardware in satisfactory alignment. Electronically Signed: Eduardo Roa, at 13:30 EDT Tel , Service support ,
[2018-10-06] MEDS: Lactated Ringers 1,000 ML 999 ML IV (12:48)
[2018-10-06] MEDS: Lactated Ringers 1,000 ML 90 ML IV (14:07)
[2018-10-06] MEDS: Insulin Lispro 100 UNIT/ML INSULN.PEN SC ×2 (14:11→16:16)
[2018-10-06] MEDS: FLUoxetine 20 MG Capsule PO (14:11)
[2018-10-06 14:25] LABS: Bedside Glucose 160 mg/dL (70-110)
--- NOTE | 2018-10-06 15:34 | PCM.PN.HOSP ---
Subjective: 62-year-old female with a history of hyperlipidemia, depression, diabetes, hypothyroidism, DVT from a PICC line presenting for removal of the antibiotic spacer and placement of a reverse shoulder replacement. She has a history of a left shoulder proximal humerus fracture and had had surgeries in the past which apparently became infected. She is been on IV antibiotics and followed by infectious disease since April. She states that her chronic medical conditions are stable and she has not had any significant changes in her current medications. She has some postoperative pain but otherwise feels okay. Vitals/I&O's: Vital Signs Temp Pulse Resp BP Pulse Ox 97.8 F 60 18 119/68 100 10/06/18 13:51 10/06/18 13:58 10/06/18 14:26 10/06/18 13:51 10/06/18 13:51 Oxygen Flow Rate (L/min) 3 Oxygen Delivery Method Room Air Weight: 304 lb 7.334 oz Body Mass Index (BMI) 52.2 Finger Stick Blood Glucose 163 Intake and Output for Last 24 Hours 10/04/18 10/05/18 10/06/18 23:59 23:59 23:59 Intake Total 2300 / 2300 Output Total 140 / 140 Balance 2160 / 2160 General: Alert, Oriented x3, Cooperative, No apparent distress HEENT: Atraumatic, PERRLA, EOMI, Normocephalic Oral: Moist Mucosa Neck: Supple, No JVD Lungs: Clear to auscultation, Normal air movement, No rhonchi, No wheeze, No rales Cardiovascular: Regular rate, Regular Rhythm, Normal S1, Normal S2, No murmurs Abdomen: Soft, Non Tender, Non-Distended, No Hepato-splenomegaly, Obese Extremities: No edema, Capillary Refill Less than 3 Seconds Skin: Incision - Dressing in place Musculoskeletal: Tenderness - Left shoulder tenderness Neurological: Neuro grossly intact, Sensory exam intact to light touch and pain Psych/Mental Status: Normal Affect, Appropriate Microbiology Past 72 Hours 10/06/18 11:37 Tissue - Shoulder Gram Stain - Final 10/06/18 11:37 Tissue - Shoulder Gram Stain - Final 10/06/18 11:37 Tissue - Shoulder Gram Stain - Final Laboratory Results 10/06/18 07:04: PT 14.5, INR 1.2, APTT 29.8 10/06/18 07:36: POC Glucose 155 H 10/06/18 12:21: POC Glucose 163 H 10/06/18 14:11: POC Glucose 160 H Current Medications Acetaminophen (Tylenol) 1,000 mg PO Q8 [facility] Last Admin: 10/06/18 14:16 Dose: 1,000 mg Aspirin (Ecotrin) 81 mg PO DAILY@0800 [facility] Atorvastatin Calcium (Lipitor) 10 mg PO QHS [facility] Dextrose (D50w Syringe) 0 gm IV X1 PRN; Protocol PRN Reason: Hypoglycemia Doxycycline Monohydrate (Doxycycline) 100 mg PO BID [facility] Enteral Nutritional Formula (Ensure Surgery) 237 ml PO TIDCM [facility] Famotidine (Pepcid) 20 mg PO DAILY [facility] Fluoxetine HCl (Prozac) 20 mg PO DAILY [facility] Last Admin: 10/06/18 14:11 Dose: 20 mg Glucagon () 1 mg IM .X1 PRN PRN Reason: Hypoglycemia Cefazolin Sodium () 1 gm in 50 mls @ 150 mls/hr IV Q8H [facility] Stop: 10/07/18 01:19 Lactated Ringer's () 1,000 mls @ 90 mls/hr IV .Q11H7M [facility] Last Admin: 10/06/18 14:07 Dose: 90 mls/hr Insulin Human Lispro (Humalog Kwikpen (Bkc)) 0 unit SC ACHS [facility]; Protocol Last Admin: 10/06/18 14:11 Dose: 1 units Ketorolac Tromethamine (Toradol) 15 mg IV Q6H PRN PRN PRN Reason: MILD-MOD PAIN (1-5/10) Stop: 10/08/18 18:01 Levothyroxine Sodium (Synthroid) 125 mcg PO DAILY@0600 [facility] Morphine Sulfate () 2 - 4 mg IV Q2H PRN PRN PRN Reason: SEVERE PAIN (6-10/10) Morphine Sulfate () 2 - 4 mg IV Q2H PRN PRN PRN Reason: SEVERE PAIN (6-10/10) Ondansetron HCl (Zofran) 4 mg IV Q8H PRN PRN PRN Reason: NAUSEA Oxycodone HCl (Oxyir) 5 - 10 mg PO Q4H PRN PRN PRN Reason: MOD-SEVERE PAIN (4-10/10) Promethazine HCl (Phenergan) 12.5 mg IM Q6H PRN PRN; Protocol PRN Reason: NAUSEA/VOMITING Rivaroxaban (Xarelto) 20 mg PO DAILY@1700 [facility] Senna/Docusate Sodium (Senokot-S, Shayla-Colace) 2 tablet PO BID [facility] Medical Necessity - Tobacco Use Smoking Status: Never smoker Assessment/Plan All Active Problems (Last Reviewed 08/25/18 @ 13:39 by Sheila Dozier) Infection of prosthetic shoulder joint (Acute) DVT of upper extremity (deep vein thrombosis) (Acute) 1. Left shoulder proximal humerus fracture status post removal of antibiotic spacer and placement of reverse shoulder replacement -Pain medication per primary -PT/OT -Surgical cultures are pending -Continue with her home Doxy and IV Ancef 2. DM 2 -She is on metformin as an outpatient this will be held -We will transition to Lantus 5 units nightly and a sliding scale insulin 3. History of PICC DVT -She is followed by Dr. Chahal -She will continue on his Xarelto until November 2018 4. Hypothyroidism -Stable, TSH is 1.24 -Continue with Synthroid 5. Depression/anxiety -Stable -Continue with Prozac 6. GERD -Stable -Continue with Pepcid 7. HLD -Stable -Continue with simvastatin DVT: Xarelto Code Visit Inpatient E&M: 76479 Subs Hosp L3
--- NOTE | 2018-10-06 15:41 | PN_ITS ---
Subjective: 62-year-old female with a history of hyperlipidemia, depression, diabetes, hypothyroidism, DVT from a PICC line presenting for removal of the antibiotic spacer and placement of a reverse shoulder replacement. She has a history of a left shoulder proximal humerus fracture and had had surgeries in the past which apparently became infected. She is been on IV antibiotics and followed by infectious disease since April. She states that her chronic medical conditions are stable and she has not had any significant changes in her current medications. She has some postoperative pain but otherwise feels okay. Vitals/I&O's: Vital Signs Temp Pulse Resp BP Pulse Ox 97.8 F 60 18 119/68 100 10/06/18 13:51 10/06/18 13:58 10/06/18 14:26 10/06/18 13:51 10/06/18 13:51 Oxygen Flow Rate (L/min) 3 Oxygen Delivery Method Room Air Weight: 304 lb 7.334 oz Body Mass Index (BMI) 52.2 Finger Stick Blood Glucose 163 Intake and Output for Last 24 Hours 10/04/18 10/05/18 10/06/18 23:59 23:59 23:59 Intake Total 2300 / 2300 Output Total 140 / 140 Balance 2160 / 2160 General: Alert, Oriented x3, Cooperative, No apparent distress HEENT: Atraumatic, PERRLA, EOMI, Normocephalic Oral: Moist Mucosa Neck: Supple, No JVD Lungs: Clear to auscultation, Normal air movement, No rhonchi, No wheeze, No rales Cardiovascular: Regular rate, Regular Rhythm, Normal S1, Normal S2, No murmurs Abdomen: Soft, Non Tender, Non-Distended, No Hepato-splenomegaly, Obese Extremities: No edema, Capillary Refill Less than 3 Seconds Skin: Incision - Dressing in place Musculoskeletal: Tenderness - Left shoulder tenderness Neurological: Neuro grossly intact, Sensory exam intact to light touch and pain Psych/Mental Status: Normal Affect, Appropriate Microbiology Past 72 Hours 10/06/18 11:37 Tissue - Shoulder Gram Stain - Final 10/06/18 11:37 Tissue - Shoulder Gram Stain - Final 10/06/18 11:37 Tissue - Shoulder Gram Stain - Final Laboratory Results 10/06/18 07:04: PT 14.5, INR 1.2, APTT 29.8 10/06/18 07:36: POC Glucose 155 H 10/06/18 12:21: POC Glucose 163 H 10/06/18 14:11: POC Glucose 160 H Current Medications Acetaminophen (Tylenol) 1,000 mg PO Q8 [facility] Last Admin: 10/06/18 14:16 Dose: 1,000 mg Aspirin (Ecotrin) 81 mg PO DAILY@0800 [facility] Atorvastatin Calcium (Lipitor) 10 mg PO QHS [facility] Dextrose (D50w Syringe) 0 gm IV X1 PRN; Protocol PRN Reason: Hypoglycemia Doxycycline Monohydrate (Doxycycline) 100 mg PO BID [facility] Enteral Nutritional Formula (Ensure Surgery) 237 ml PO TIDCM [facility] Famotidine (Pepcid) 20 mg PO DAILY [facility] Fluoxetine HCl (Prozac) 20 mg PO DAILY [facility] Last Admin: 10/06/18 14:11 Dose: 20 mg Glucagon () 1 mg IM .X1 PRN PRN Reason: Hypoglycemia Cefazolin Sodium () 1 gm in 50 mls @ 150 mls/hr IV Q8H [facility] Stop: 10/07/18 01:19 Lactated Ringer's () 1,000 mls @ 90 mls/hr IV .Q11H7M [facility] Last Admin: 10/06/18 14:07 Dose: 90 mls/hr Insulin Human Lispro (Humalog Kwikpen (Bkc)) 0 unit SC ACHS [facility]; Protocol Last Admin: 10/06/18 14:11 Dose: 1 units Ketorolac Tromethamine (Toradol) 15 mg IV Q6H PRN PRN PRN Reason: MILD-MOD PAIN (1-5/10) Stop: 10/08/18 18:01 Levothyroxine Sodium (Synthroid) 125 mcg PO DAILY@0600 [facility] Morphine Sulfate () 2 - 4 mg IV Q2H PRN PRN PRN Reason: SEVERE PAIN (6-10/10) Morphine Sulfate () 2 - 4 mg IV Q2H PRN PRN PRN Reason: SEVERE PAIN (6-10/10) Ondansetron HCl (Zofran) 4 mg IV Q8H PRN PRN PRN Reason: NAUSEA Oxycodone HCl (Oxyir) 5 - 10 mg PO Q4H PRN PRN PRN Reason: MOD-SEVERE PAIN (4-10/10) Promethazine HCl (Phenergan) 12.5 mg IM Q6H PRN PRN; Protocol PRN Reason: NAUSEA/VOMITING Rivaroxaban (Xarelto) 20 mg PO DAILY@1700 [facility] Senna/Docusate Sodium (Senokot-S, Shayla-Colace) 2 tablet PO BID [facility] Medical Necessity - Tobacco Use Smoking Status: Never smoker Assessment/Plan All Active Problems (Last Reviewed 08/25/18 @ 13:39 by Sheila Dozier) Infection of prosthetic shoulder joint (Acute) DVT of upper extremity (deep vein thrombosis) (Acute) 1. Left shoulder proximal humerus fracture status post removal of antibiotic spacer and placement of reverse shoulder replacement -Pain medication per primary -PT/OT -Surgical cultures are pending -Continue with her home Doxy and IV Ancef 2. DM 2 -She is on metformin as an outpatient this will be held -We will transition to Lantus 5 units nightly and a sliding scale insulin 3. History of PICC DVT -She is followed by Dr. Chahal -She will continue on his Xarelto until November 2018 4. Hypothyroidism -Stable, TSH is 1.24 -Continue with Synthroid 5. Depression/anxiety -Stable -Continue with Prozac 6. GERD -Stable -Continue with Pepcid 7. HLD -Stable -Continue with simvastatin DVT: Xarelto Code Visit Inpatient E&M: 97381 Subs Hosp L3
[2018-10-06 16:26] LABS: Bedside Glucose 156 mg/dL (70-110)
--- NOTE | 2018-10-06 16:27 | PCM.HP.ID ---
Problem List (1) Infection of prosthetic shoulder joint Status: Acute Reason for Consult: PJI Consulted by: Dr. Sorto History of Present Illness: The patient is a 62 year old F with L shoulder PJI, now s/p spacer placement 06/[address] Sorto, given course of iv vanc via picc, complicated by DVT, then on po doxy. Had antibiotic holiday with no issue, resumed doxy prior to her surgery today for 2nd stage joint replacement. Has been feeling well, no fever, no drainage, no n/v/d. Pain controlled now s/p OR. Full ROS performed and neg except as noted above. - Medical History Past Medical History (Chronic Problems): Chronic Problems (Last Reviewed 08/25/18 @ 13:39 by Sheila Dozier) Obstructive sleep apnea (Chronic) Wears CPAP Hypothyroidism (Chronic) Diabetes mellitus, type II (Chronic) Abnormal EKG (Chronic) Postop ekg changes along with elevated troponin 03/11/18 Allergies/Adverse Reactions: Allergies adhesive tape Allergy (Verified 10/06/18 07:26) BLISTERS/SCARS codeine Allergy (Verified 10/06/18 07:26) Shortness of breath Sulfa (Sulfonamide Antibiotics) Allergy (Verified 10/06/18 07:26) Rash Tetanus Vaccines and Toxoid [Tetanus Vaccines & Toxoid] Allergy (Verified 10/06/18 07:26) Swelling meperidine HCl [From Demerol] Adverse Reaction (Verified 10/06/18 07:26) Itching STERISTRIPS Allergy (Uncoded 10/06/18 07:26) BLISTERS/SCARS Home Medications: Ambulatory Orders Medication Instructions Recorded Fluoxetine [Prozac] 20 mg PO DAILY 06/05/14 Cholecalciferol (Vitamin D3) 10,000 unit PO DAILY 06/28/18 [Vitamin D3] Levothyroxine Sodium [Synthroid] 125 mcg PO DAILY 06/28/18 Metformin HCl [Metformin ER 1,000 mg PO DAILY 06/28/18 Osmotic] Simvastatin 20 mg PO QHS 06/28/18 Acetaminophen [Tylenol] 1,000 mg PO Q8 PRN 07/21/18 Doxycycline 100 mg PO BID 09/24/18 Famotidine [Pepcid] 20 mg PO DAILY 09/24/18 Rivaroxaban [Xarelto] 20 mg PO DAILY 09/24/18 - Social History SMOKING STATUS:: Never smoker Vital Signs Temp Pulse Resp BP Pulse Ox 98.6 F 92 18 110/53 L 93 10/06/18 15:37 10/06/18 15:37 10/06/18 15:37 10/06/18 15:37 10/06/18 15:37 Oxygen Flow Rate (L/min) 3 Oxygen Delivery Method Room Air Weight: 138.1 kg Body Mass Index (BMI) 52.2 Finger Stick Blood Glucose 163 Microbiology Past 72 Hours 10/06/18 11:37 Gram Stain - Final Tissue - Shoulder 10/06/18 11:37 Gram Stain - Final Tissue - Shoulder 10/06/18 11:37 Gram Stain - Final Tissue - Shoulder Laboratory Tests Past 24 Hrs 10/06/18 07:04 PT 14.5 INR 1.2 APTT 29.8 - Other Studies Radiology: [] reviewed Other Studies: [] Route of nutrition/ use of supplements: [] Nutritional Intake: [] IV Site: [] Jang Catheter: [] - Physical Exam General: Alert, Oriented x3, Cooperative, No apparent distress HEENT: Atraumatic, PERRLA, EOMI Neck: Supple, No Nodes Lungs: Clear to auscultation, Normal air movement Cardiovascular: Regular rate, Regular Rhythm, No murmurs Abdomen: Soft, Non Tender, Non-Distended Extremities: No edema Skin: Incision - Shoulder wrapped IV Site: Peripheral, without redness Musculoskeletal: No Tenderness to Palpation of Joints or Extremities Neurological: Cranial nerves II-XII grossly intact - Assessment/Plan Antibiotics: [] Assessment/Plan: [] DEREK Modi shoulder PJI - s/p debridement 06/09/[address] Sorto, developed heavy drainage, so taken to OR 06/[address] Sorto for spacer placement. Now s/p 10/06 spacer removal and prosthetic joint placement. Surg cx pending. On darion-op cefazolin and po doxy. Got dose of vanc. Will follow, thank you.
[2018-10-06] MEDS: Cefazolin 1 GM/50 ML BAG IV (17:13)
[2018-10-06] MEDS: Ensure Surgery 237 ML LIQUID PO (17:15)
[2018-10-06] MEDS: Senna/Docusate Sodium 1 Tablet 2 TABLET PO (21:53)
[2018-10-06] MEDS: Doxycycline 100 MG CAPSULE PO (21:54)
[2018-10-06] MEDS: Atorvastatin Calcium 10 MG Tablet PO (21:54)
[2018-10-06 22:00] LABS: Bedside Glucose 133 mg/dL (70-110)
[2018-10-07] MEDS: Cefazolin 1 GM/50 ML BAG IV (00:42)
[2018-10-07] MEDS: Ketorolac 15 MG/ML Vial IV ×2 (00:53→14:18)
[2018-10-07 03:59] VITALS: BP 113/63; PULSE 69; RESP 18; TEMP 36.6; O2SAT 97
[2018-10-07] MEDS: Acetaminophen 500 MG Tablet 1000 MG PO ×3 (05:37→21:35)
[2018-10-07] MEDS: Levothyroxine 125 MCG Tablet PO (05:37)
[2018-10-07 06:51] LABS: Bedside Glucose 128 mg/dL (70-110)
--- NOTE | 2018-10-07 07:14 | PN.ORTHO_ITS ---
Subjective: Patient is doing well overnight. No complaints of numbness or tingling in the hand. No chest pain or shortness of breath. LEO drain drainage continues to decrease. Vital signs have been stable. No calf pain. Objective: Postoperative x-rays the left shoulder show stable well fixed reverse total shoulder replacement - Physical Exam General: Alert, Oriented x3, Cooperative Extremities: - - Left upper extremity: Dressing is clean dry and intact. Sensat ions intact light touch axillary/R/M/U. Motor is intact R/M/U distally. 2+ radial pulse. Vital Signs Temp Pulse Resp BP Pulse Ox 98 F 69 18 113/63 97 10/07/18 03:59 10/07/18 03:59 10/07/18 03:59 10/07/18 03:59 10/07/18 03:59 Oxygen Flow Rate (L/min) 2 Oxygen Delivery Method CPAP Weight: 304 lb 7.334 oz Body Mass Index (BMI) 52.2 Finger Stick Blood Glucose 163 Intake and Output for Last 24 Hours 10/05/18 10/06/18 10/07/18 23:59 23:59 23:59 Intake Total 3258 / 3258 2380 / 2380 Output Total 220 / 220 630 / 630 Balance 3038 / 3038 1750 / 1750 Microbiology Past 72 Hours 10/06/18 11:37 Gram Stain - Final Tissue - Shoulder 10/06/18 11:37 Gram Stain - Final Tissue - Shoulder 10/06/18 11:37 Gram Stain - Final Tissue - Shoulder Laboratory Tests Past 24 Hrs 10/06/18 07:04 PT 14.5 INR 1.2 APTT 29.8 POC Glucose 10/07/18 10/06/18 10/06/18 06:45 21:52 16:13 POC Glucose 128 H 133 H 156 H 10/06/18 10/06/18 10/06/18 14:11 12:21 07:36 POC Glucose 160 H 163 H 155 H Medical Necessity - Tobacco Use Smoking Status: Never smoker Assessment/Plan All Active Problems (Last Reviewed 08/25/18 @ 13:39 by Sheila Dozier) Infection of prosthetic shoulder joint (Acute) DVT of upper extremity (deep vein thrombosis) (Acute) Postop day 1 left reverse total shoulder replacement, removal antibiotic spacer 1. Pain control: Pain under control continue current regimen 2. DVT prophylaxis: Patient on Xarelto should restart today for previous DVT. 3. Physical therapy: Elbow wrist and finger range of motion. ADL training. 4. Infected left total shoulder: Antibiotic spacer treatment is gone well. Patient is responded with decreasing labs and no signs of infection however she is remained on doxycycline. Infectious diseases on board. Once we have a established antibiotic regimen patient will be ready for discharge. Following cultures. 5. Wound care: Will follow the incision for another 24 hours. If drain output continues to decrease Maple drain before discharge. May need to pull drain in the office. 6. Disposition: We will plan for discharge once we have established appropriate antibiotic regimen if necessary. Patient is comfortable at this time. Will likely discharge home tomorrow. Continuing to follow cultures. [facility] Office:
[2018-10-07 07:29] LABS: Hematocrit 31.5 % (37-47); Hemoglobin 10.1 g/dl (12.0-15.0); Mean Corp Hgb Conc 32.1 g/gl (32-36); Mean Corpuscular Hgb 28.4 pg (27.0-32.0); Mean Corpuscular Volume 88.5 fL (81-99); Mean Platelet Vol. 9.7 fl (6.2-12.0); Platelet Count 179 K/mm3 (150-450); RBC Distribution Width CV 14.3 % (11.6-14.6); Red Blood Count 3.56 M/mm3 (4.2-5.4); White Blood Count 7.8 K/mm3 (4.4-11.0)
[2018-10-07 07:30] LABS: Scan Indicated on CBC? Y/N NO
[2018-10-07 09:30] VITALS: BP 112/98; PULSE 70; RESP 16; TEMP 36.7; O2SAT 100
[2018-10-07] MEDS: Ensure Surgery 237 ML LIQUID PO (09:41)
[2018-10-07] MEDS: Doxycycline 100 MG CAPSULE PO ×2 (09:41→21:36)
[2018-10-07] MEDS: FLUoxetine 20 MG Capsule PO (09:41)
[2018-10-07] MEDS: Famotidine 20 MG Tablet PO (09:42)
[2018-10-07] MEDS: Senna/Docusate Sodium 1 Tablet 2 TABLET PO ×2 (09:42→21:36)
--- NOTE | 2018-10-07 10:15 | CASEMGMT ---
RN SAYDA Face to Face with patient for initial transition planning/care coordination assessment. RN CM introduced self and role at [facility]. Patient sitting in chair, alert and oriented, daughter at bedside. Patient willing to participate in assessment and is able to answer all questions appropriately. Care providers, pharmacy, and demographics verified. Patient wishes to discharge home, denies need for home health at this time. Patient states he has no further needs or concerns at this time. CM to follow for discharge planning needs that may arise. PCP: Michelle Specialists: [facility]acy: [facility] Insurance: [facility] Prescription Benefit: yes Living Will/HPOA: NOne LNOK: , daughter Living Arrangements: Patient lives with family in duplex with 2 steps to enter the home. Transportation: family DME/HHC: Patient has cPap at home. Patient denies further needs Disposition Plan: Patient to discharge home with family support and follow-up plans in place. Emily HOLMANN, RN, CM
--- NOTE | 2018-10-07 10:38 | PCM.PN.ID ---
Subjective: Feeling well, no fever, no pain, no diarrhea - Physical Exam General: Alert, Cooperative, No apparent distress Lungs: Clear to auscultation, Normal air movement Cardiovascular: Regular rate, Regular Rhythm Abdomen: Soft, Non Tender, Non-Distended Skin: No rashes Vital Signs Temp Pulse Resp BP Pulse Ox 98.0 F 70 16 112/98 H 100 10/07/18 09:30 10/07/18 09:30 10/07/18 09:30 10/07/18 09:30 10/07/18 09:30 Oxygen Flow Rate (L/min) 2 Oxygen Delivery Method Room Air Weight: 138.1 kg Body Mass Index (BMI) 52.2 Finger Stick Blood Glucose 163 Intake and Output for Last 24 Hours 10/05/18 10/06/18 10/07/18 23:59 23:59 23:59 Intake Total 3258 / 3258 2380 / 2380 Output Total 220 / 220 630 / 630 Balance 3038 / 3038 1750 / 1750 Microbiology Past 72 Hours 10/06/18 11:37 Gram Stain - Final Tissue - Shoulder 10/06/18 11:37 Gram Stain - Final Tissue - Shoulder 10/06/18 11:37 Gram Stain - Final Tissue - Shoulder Laboratory Tests Past 24 Hrs 10/07/18 07:10 WBC 7.8 RBC 3.56 L Hgb 10.1 L Hct 31.5 L MCV 88.5 MCH 28.4 MCHC 32.1 RDW 14.3 RDW Differential 45.0 H Plt Count 179 MPV 9.7 POC Glucose 10/07/18 10/06/18 10/06/18 06:45 21:52 16:13 POC Glucose 128 H 133 H 156 H 10/06/18 10/06/18 14:11 12:21 POC Glucose 160 H 163 H Medical Necessity - Tobacco Use Smoking Status: Never smoker Route of nutrition/ use of supplements: [] Nutritional Intake: [] IV Site: [] Jang Catheter: [] - Assessment/Plan Antibiotics: [] Assessment/Plan: [] DEREK Modi shoulder PJI - s/p debridement 06/09/[address] Sorto, developed heavy drainage, so taken to OR 06/[address] Sorto for spacer placement. Now s/p 10/06 spacer removal and prosthetic joint placement. Surg cx neg so far. Plan will be for one year of po doxy 100mg bid at discharge. Will follow
[2018-10-07] MEDS: Insulin Lispro 100 UNIT/ML INSULN.PEN SC (11:33)
[2018-10-07 11:56] LABS: Bedside Glucose 218 mg/dL (70-110)
[2018-10-07] MEDS: oxyCODONE 5 MG Tablet PO (12:18)
--- NOTE | 2018-10-07 12:35 | PCM.PROGNOTE ---
Subjective: Hospitalist note Postoperative day #1-status post reverse total shoulder replacement. Seen by Dr. Langley on 10/06/2018 and I reviewed his consult. 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 On 10/06 she underwent a removal of spacer and a rev shoulder replacement. Afebrile Vital signs stable 100% saturation on room air. All lab was personally reviewed. Hemoglobin is 10.1, down from 12.2 on 09/24/2018. Blood sugar record was reviewed and blood sugars are at the current time adequately controlled. Gram stain of the specimen sent from surgery showed no white blood cells and no organisms. There has been no growth to date. She has been seen in consultation by Dr. Garcia today who feels that she requires 1 year of p.o. doxycycline, 100 mg twice daily. This was started on 10/06/2017. She is on Xarelto 20 mg daily for DVT related to PICC line - Physical Exam General: Alert, Oriented x3, Cooperative, No apparent distress HEENT: Atraumatic, PERRLA, EOMI, Normocephalic Oral: Moist Mucosa Lungs: Clear to auscultation - anterior Cardiovascular: Regular rate, Regular Rhythm, Normal S1, Normal S2, No murmurs, No Gallop Abdomen: Soft, Non Tender, Non-Distended, Obese Extremities: - - left arm is elevated and in a sling Skin: No rashes Neurological: Cranial nerves II-XII grossly intact, Neuro grossly intact Psych/Mental Status: Normal Affect, Appropriate Vital Signs Temp Pulse Resp BP Pulse Ox 98.0 F 70 16 112/98 H 100 10/07/18 09:30 10/07/18 09:30 10/07/18 09:30 10/07/18 09:30 10/07/18 09:30 Oxygen Flow Rate (L/min) 2 Oxygen Delivery Method Room Air Weight: 304 lb 7.334 oz Body Mass Index (BMI) 52.2 Finger Stick Blood Glucose 163 Intake and Output for Last 24 Hours 10/05/18 10/06/18 10/07/18 23:59 23:59 23:59 Intake Total 3258 / 3258 2830 / 2830 Output Total 220 / 220 965 / 965 Balance 3038 / 3038 1865 / 1865 Microbiology Past 72 Hours 10/06/18 11:37 Gram Stain - Final Tissue - Shoulder Wound Culture - Preliminary No growth-Final to follow 10/06/18 11:37 Gram Stain - Final Tissue - Shoulder Wound Culture - Preliminary No growth-Final to follow 10/06/18 11:37 Gram Stain - Final Tissue - Shoulder Wound Culture - Preliminary No growth-Final to follow Laboratory Tests Past 24 Hrs 10/07/18 07:10 WBC 7.8 RBC 3.56 L Hgb 10.1 L Hct 31.5 L MCV 88.5 MCH 28.4 MCHC 32.1 RDW 14.3 RDW Differential 45.0 H Plt Count 179 MPV 9.7 POC Glucose 10/07/18 10/07/18 10/06/18 11:30 06:45 21:52 POC Glucose 218 H 128 H 133 H 10/06/18 10/06/18 16:13 14:11 POC Glucose 156 H 160 H Medical Necessity - Tobacco Use Smoking Status: Never smoker Assessment/Plan All Active Problems (Last Reviewed 08/25/18 @ 13:39 by Sheila Dozier) Infection of prosthetic shoulder joint (Acute) DVT of upper extremity (deep vein thrombosis) (Acute) Impressions 1. POD #1 - S/P removal of spacer with Left rev shoulder by Dr. Sorto 2. MRSE infection of the left shoulder - finished 6 weeks of IV antibiotics 3. DVT of the UE due to a PICC line - on Xarelto 4. Obstructive sleep apnea 5. Super morbid obesity 6. Hyperlipidemia 7. History of depression 8. Diabetes mellitus type 2-blood sugars are well controlled 9. Anxiety/depression 10. Hypothyroidism 11. Normochromic normocytic anemia. BP and BS's are well controlled Will need 1 year of BID doxycycline Pain is controlled adequately Probable discharge tomorrow per the orthos notes No growth on cultures done at the time of surgery as of yet-we will recheck culture results in the a.m. Code Visit Inpatient E&M: 39334 Subs Hosp L2
[2018-10-07 14:15] VITALS: BP 133/69; PULSE 85; RESP 16; TEMP 36.4; O2SAT 98
[2018-10-07] MEDS: Rivaroxaban 20 MG Tablet PO (16:33)
[2018-10-07 16:41] LABS: Bedside Glucose 129 mg/dL (70-110)
[2018-10-07 20:07] VITALS: BP 133/71; PULSE 67; RESP 16; TEMP 36.7; O2SAT 96
[2018-10-07] MEDS: Atorvastatin Calcium 10 MG Tablet PO (21:36)
[2018-10-07 21:45] LABS: Bedside Glucose 151 mg/dL (70-110)
[2018-10-08 02:05] VITALS: BP 128/75; PULSE 81; RESP 16; TEMP 36.5; O2SAT 97
[2018-10-08] MEDS: Ketorolac 15 MG/ML Vial IV (03:36)
[2018-10-08 06:05] LABS: Mean Corp Hgb Conc 31.3 g/gl (32-36); Mean Corpuscular Hgb 27.8 pg (27.0-32.0); Mean Corpuscular Volume 88.9 fL (81-99); Mean Platelet Vol. 9.7 fl (6.2-12.0); Platelet Count 193 K/mm3 (150-450); RBC Distribution Width CV 14.7 % (11.6-14.6); RBC Distribution Width SD 46.2 fl (35.1-43.9); White Blood Count 7.4 K/mm3 (4.4-11.0)
[2018-10-08 06:06] LABS: Scan Indicated on CBC? Y/N NO
[2018-10-08 06:15] LABS: Anion Gap 7 (5-15); BUN 17 mg/dL (7-18); Calcium,Total 8.1 mg/dL (8.5-10.1); Chloride 106 mmol/L (98-107); Creatinine, Serum 1.13 mg/dL (0.55-1.02); EST Glomerular Filtration Rate 52 mL/min (>60); Est Glom Filt Rate - Afr Amer 63 mL/min (>60); Estimated Creatinine Clearance 45.72 ml/min; Glucose 148 mg/dL (74-106); Potassium 4.1 mmol/L (3.5-5.1); Sodium Level 142 mmol/L (136-145)
[2018-10-08] MEDS: Levothyroxine 125 MCG Tablet PO (06:31)
[2018-10-08] MEDS: Acetaminophen 500 MG Tablet 1000 MG PO (06:31)
[2018-10-08 06:36] LABS: Bedside Glucose 154 mg/dL (70-110)
--- NOTE | 2018-10-08 06:50 | PCM.PN.ORT ---
Subjective: Patient is doing well. Still has some complaints of pain. Not taking maximum dose of OxyIR. Taking Tylenol and Toradol. Unable to take long-term NSAIDs due to anticoagulation for DVT. Overall she is comfortable. Minimal drainage in the LEO drain continues to slow very nicely. Objective: Cultures negative to date - Physical Exam General: Alert, Oriented x3, Cooperative Extremities: - - Left upper extremity: Incision is clean dry and intact. Positive thumbs up, okay sign and cross his fingers. Sensations intact light touch axillary/R/M/U. Drain was pulled. Vital Signs Temp Pulse Resp BP Pulse Ox 97.7 F L 81 16 128/75 H 97 10/08/18 02:05 10/08/18 02:05 10/08/18 02:05 10/08/18 02:05 10/08/18 02:05 Oxygen Flow Rate (L/min) 2 Oxygen Delivery Method Room Air Weight: 304 lb 7.334 oz Body Mass Index (BMI) 52.2 Finger Stick Blood Glucose 163 Intake and Output for Last 24 Hours 10/06/18 10/07/18 10/08/18 23:59 23:59 23:59 Intake Total 3258 / 3258 3430 / 3430 700 / 700 Output Total 220 / 220 990 / 990 20 / 20 Balance 3038 / 3038 2440 / 2440 680 / 680 Microbiology Past 72 Hours 10/06/18 11:37 Gram Stain - Final Tissue - Shoulder Wound Culture - Preliminary No growth-Final to follow 10/06/18 11:37 Gram Stain - Final Tissue - Shoulder Wound Culture - Preliminary No growth-Final to follow 10/06/18 11:37 Gram Stain - Final Tissue - Shoulder Wound Culture - Preliminary No growth-Final to follow Laboratory Tests Past 24 Hrs 10/07/18 10/08/18 10/08/18 07:10 05:15 05:15 WBC 7.8 7.4 RBC 3.56 L 3.60 L Hgb 10.1 L 10.0 L Hct 31.5 L 32.0 L MCV 88.5 88.9 MCH 28.4 27.8 MCHC 32.1 31.3 L RDW 14.3 14.7 H RDW Differential 45.0 H 46.2 H Plt Count 179 193 MPV 9.7 9.7 Sodium 142 Potassium 4.1 Chloride 106 Carbon Dioxide 29.0 Anion Gap 7 BUN 17 Creatinine 1.13 H Estim Creat Clear Calc 45.72 Est GFR (MDRD) Af Amer 63 Est GFR (MDRD) Non-Af 52 L BUN/Creatinine Ratio 15.0 Glucose 148 H Calcium 8.1 L POC Glucose 10/08/18 10/07/18 10/07/18 06:30 21:33 16:31 POC Glucose 154 H 151 H 129 H 10/07/18 10/07/18 11:30 06:45 POC Glucose 218 H 128 H Medical Necessity - Tobacco Use Smoking Status: Never smoker Assessment/Plan All Active Problems (Last Reviewed 08/25/18 @ 13:39 by Sheila Dozier) Infection of prosthetic shoulder joint (Acute) DVT of upper extremity (deep vein thrombosis) (Acute) Postop day 2 left reverse total shoulder replacement, removal antibiotic spacer 1. Pain control: Patient complaining of pain but not maximizing current regimen. Would maintain regimen patient was encouraged to not allow her pain to get as high as an 8 prior to requesting pain medications 2. DVT tx: DVT treatment for Xarelto 3. Physical therapy: Elbow wrist and finger range of motion. ADL training. 4. Infected left total shoulder: Antibiotic spacer treatment is gone well. Patient is responded with decreasing labs and no signs of infection however she is remained on doxycycline. Infectious diseases on board. ID has recommended 1 year of doxycycline 100 mg twice daily. Following cultures. 5. Wound care: Will follow the incision for another 24 hours. Dressing has remained without saturation. Drain output was minimal drain is pulled today 6. Disposition: Patient will be discharged home today with doxycycline for 1 year [facility] Office:
--- NOTE | 2018-10-08 07:02 | DCINST_ITS ---
Discharge Diet: No Restrictions Discharge Activity: May Not Drive May shower in (days): 1 Ice area for (Minutes): 20 - Ice area for 20 minutes each hour while awake Weight Bearing Status: No weight bearing Keep extremity elevated above heart level: Operative Extremity Call your doctor if your incision/area has: Continuous Slow Oozing, Sudden Increased Bleeding, Increased Pain/ Swelling, Increased Redness, Foul Smelling Discharge Call your doctor if you observe: Fever of 101 or Higher, Coldness, Increased Pain, Numbness or Tingling, Change in Color Remove Dressing in (days):: 10-08-2018 Cleanse incision/area with: Keep Dressing Clean & Dry Additional Dressing/Incision Instructions:: If incision is clean dry and intact may leave the wound open to air and continue showering. If there is continued drainage continue daily dry dressing changes and keep incision clean dry and intact until there is no drainage. Allergies/Adverse Reactions: Allergies adhesive tape Allergy (Verified 10/06/18 07:26) BLISTERS/SCARS codeine Allergy (Verified 10/06/18 07:26) Shortness of breath Sulfa (Sulfonamide Antibiotics) Allergy (Verified 10/06/18 07:26) Rash Tetanus Vaccines and Toxoid [Tetanus Vaccines & Toxoid] Allergy (Verified 10/06/18 07:26) Swelling meperidine HCl [From Demerol] Adverse Reaction (Verified 10/06/18 07:26) Itching STERISTRIPS Allergy (Uncoded 10/06/18 07:26) BLISTERS/SCARS Medications to take at Discharge Fluoxetine [Prozac] 20 mg PO DAILY 06/05/14 Cholecalciferol (Vitamin D3) [Vitamin D3] 10,000 unit PO DAILY 06/28/18 Levothyroxine Sodium [Synthroid] 125 mcg PO DAILY 06/28/18 Metformin HCl [Metformin ER Osmotic] 1,000 mg PO DAILY 06/28/18 Simvastatin 20 mg PO QHS 06/28/18 Acetaminophen [Tylenol] 1,000 mg PO Q8 PRN 07/21/18 Rivaroxaban [Xarelto] 20 mg PO DAILY 09/24/18 Acetaminophen [Tylenol] 1,000 mg PO Q8 #100 tablet 10/08/18 Doxycycline 100 mg PO BID #60 capsule 10/08/18 Famotidine [Pepcid] 20 mg PO DAILY #30 tablet 10/08/18 Oxycodone [Oxyir] 5 - 10 mg PO Q4H PRN PRN 7 Days #60 tablet 10/08/18 Senna/Docusate Sodium [Senokot-S] 2 tablet PO BID tablet 10/08/18 The following prescriptions were given: Oxycodone [Oxyir] 5 - 10 mg PO Q4H PRN PRN 7 Days #60 tablet PRN Reason: Mod-Severe Pain (4-02/10) Acetaminophen [Tylenol] 1,000 mg PO Q8 #100 tablet Famotidine [Pepcid] 20 mg PO DAILY #30 tablet Doxycycline 100 mg PO BID #60 capsule Primary Care Physician: Diana Martinez DO [Primary Care Provider] - Test Results: Test results from this visit will be discussed in further detail at your follow- up appointment, if applicable. Please Follow Up With: Marco A Saleh PA-C When: 2 weeks as scheduled
[2018-10-08 09:00] VITALS: BP 120/66; PULSE 74; RESP 14; TEMP 36.6; O2SAT 100
[2018-10-08] MEDS: FLUoxetine 20 MG Capsule PO (09:07)
[2018-10-08] MEDS: Doxycycline 100 MG CAPSULE PO (09:07)
[2018-10-08] MEDS: Famotidine 20 MG Tablet PO (09:10)
[2018-10-08] MEDS: Senna/Docusate Sodium 1 Tablet 2 TABLET PO (09:11)
--- NOTE | 2018-10-08 13:02 | PCM.PROGNOTE ---
Subjective: Afebrile, vital signs stable. 96 to 100% saturation on room air. States her pain is adequately controlled and she was sleeping when I entered the room. Denies abdominal pain, nausea, vomiting. All lab was personally reviewed. Hemoglobin is stable at 10. Platelets and white blood cell count are within normal limits. The BMP is unremarkable with the exception of an increased creatinine at 1.13. It has been mildly elevated in the past as well at times, up to 1.2 in 2017. Blood sugars are well controlled. Objective: PHYSICAL EXAM: GENERAL: alert, oriented X 3, Cooperative, NAD ORAL: moist mucosa, no mucosal lesions NECK: No JVD, supple, trachea midline LUNGS: CTA, symmetric chest expansion, diminished likely secondary to body habitus HEART: RRR, Normal S1 and S2, no rub, no gallop, no murmur ABDOMEN: soft, NT, ND, BS present, no guarding with palpation, obese EXTREMITIES: no edema, no cyanosis, no calf tenderness SKIN: No rashes, no breakdown NEUROLOGIC: no focal neurologic deficits PSYCH: appropriate, normal affect, pleasant She has intact sensation to the Left hand and there is no swelling of the fingers. - Physical Exam Vital Signs Temp Pulse Resp BP Pulse Ox 97.8 F 74 14 120/66 100 10/08/18 09:00 10/08/18 09:00 10/08/18 09:00 10/08/18 09:00 10/08/18 09:00 Oxygen Flow Rate (L/min) 2 Oxygen Delivery Method Room Air Weight: 304 lb 7.334 oz Body Mass Index (BMI) 52.2 Finger Stick Blood Glucose 163 Intake and Output for Last 24 Hours 10/06/18 10/07/18 10/08/18 23:59 23:59 23:59 Intake Total 3258 / 3258 3430 / 3430 1000 / 1000 Output Total 220 / 220 990 / 990 20 / 20 Balance 3038 / 3038 2440 / 2440 980 / 980 Microbiology Past 72 Hours 10/06/18 11:37 Gram Stain - Final Tissue - Shoulder Wound Culture - Preliminary No growth-Final to follow Anaerobic Culture - Preliminary No growth in 48 hours. 10/06/18 11:37 Gram Stain - Final Tissue - Shoulder Wound Culture - Preliminary No growth-Final to follow Anaerobic Culture - Preliminary No growth in 48 hours. 10/06/18 11:37 Gram Stain - Final Tissue - Shoulder Wound Culture - Preliminary No growth-Final to follow Anaerobic Culture - Preliminary No growth in 48 hours. Laboratory Tests Past 24 Hrs 10/08/18 10/08/18 05:15 05:15 WBC 7.4 RBC 3.60 L Hgb 10.0 L Hct 32.0 L MCV 88.9 MCH 27.8 MCHC 31.3 L RDW 14.7 H RDW Differential 46.2 H Plt Count 193 MPV 9.7 Sodium 142 Potassium 4.1 Chloride 106 Carbon Dioxide 29.0 Anion Gap 7 BUN 17 Creatinine 1.13 H Estim Creat Clear Calc 45.72 Est GFR (MDRD) Af Amer 63 Est GFR (MDRD) Non-Af 52 L BUN/Creatinine Ratio 15.0 Glucose 148 H Calcium 8.1 L POC Glucose 10/08/18 10/07/18 10/07/18 06:30 21:33 16:31 POC Glucose 154 H 151 H 129 H Medical Necessity - Tobacco Use Smoking Status: Never smoker Assessment/Plan All Active Problems (Last Reviewed 08/25/18 @ 13:39 by Sheila Dozier) Infection of prosthetic shoulder joint (Acute) DVT of upper extremity (deep vein thrombosis) (Acute) Impressions 1. POD #1 - S/P removal of spacer with Left rev shoulder by Dr. Sorto 2. MRSE infection of the left shoulder - finished 6 weeks of IV antibiotics 3. DVT of the UE due to a PICC line - on Xarelto 4. Obstructive sleep apnea 5. Super morbid obesity 6. Hyperlipidemia 7. History of depression 8. Diabetes mellitus type 2-blood sugars are well controlled 9. Anxiety/depression 10. Hypothyroidism 11. Normochromic normocytic anemia. being discharged today. She was instructed to check her feet for any openings in the skin daily. If she gets a cut or an abrasion she will will immediately cleanse it and apply triple antibiotic ointment. If she has a fever she will visit her PCP. She will keep the blood sugars well controlled. All in an effort to prevent infections going forward Continue the Xarelto Code Visit Inpatient E&M: 31023 Subs Hosp L2
== END 2018-10-08 11:53 | disposition home or self-care (01) | DRG 483 ==
LOC: ACINP 06:40 → MS3 12:43
PROVIDERS: Anesthesiology; Admitting Provider Specialist; Family Provider Internal Medicine; PCP Internal Medicine; Referring Provider Specialist; Visit Provider Internal Medicine
PROC: 0RRK00Z Replacement of Left Shoulder Joint with Reverse Ball and Socket Synthetic Substitute, Open Approach (ICD-10-PCS; principal; 2018-10-06 08:30)
DX: T84.59XA Infection and inflammatory reaction due to other internal joint prosthesis, initial encounter (principal); S42.202A Unspecified fracture of upper end of left humerus, initial encounter for closed fracture; T82.868A Thrombosis due to vascular prosthetic devices, implants and grafts, initial encounter; Z68.43 Body mass index [BMI] 50.0-59.9, adult; G47.33 Obstructive sleep apnea (adult) (pediatric); B95.7 Other staphylococcus as the cause of diseases classified elsewhere; M61.512 Other ossification of muscle, left shoulder; Y84.8 Other medical procedures as the cause of abnormal reaction of the patient, or of later complication, without mention of misadventure at the time of the procedure; E66.01 Morbid (severe) obesity due to excess calories; E78.5 Hyperlipidemia, unspecified; F32.9 Major depressive disorder, single episode, unspecified; E11.9 Type 2 diabetes mellitus without complications; F41.9 Anxiety disorder, unspecified; E03.9 Hypothyroidism, unspecified; D64.9 Anemia, unspecified; Z79.01 Long term (current) use of anticoagulants; Z79.4 Long term (current) use of insulin; Z79.84 Long term (current) use of oral hypoglycemic drugs; Z79.890 Hormone replacement therapy; Z79.899 Other long term (current) drug therapy
CPT/HCPCS: 36415; 73030; 80048; 80076; 82962; 83036; 84443; 85027; 85610; 85730; 87015; 87070; 87075; 87081; 87102; 87116; 87176; 87205; 87206; 97166; 97530; 97802; 99251; C1776; J7040; J7120; G0463; J2405; J3490

== ENCOUNTER 2018-10-20 13:45 | Inpatient (IN) | payer OTHER, SELFPAY ==
[2018-10-06 13:51] VITALS: BMI 52.2
[2018-10-20] VITALS (7 sets, daily range): BP systolic 127–155; BP diastolic 65–87; PULSE 88–108; RESP 16–18; TEMP 36.5–36.8; O2SAT 95–99; BMI 52.0; BMI 52.6
--- NOTE | 2018-10-20 11:57 | PCM.HP.BLA ---
History and Physical History and Physical Patient Name: Shabnam Floyd: 1955 From: BASILIO MOYER PA-C DATE OF SURGERY: 10/20/2018 SCHEDULED PROCEDURE: open reduction and polyethylene exchange left shoulder HISTORY OF PRESENT ILLNESS: Preoperative history and physical exam was performed on October 20, 2018. This is a 62-year-old female who recently on October 06, 2018 had removal antibiotic spacer with placement of a left reverse total shoulder arthroplasty. Patient states she was doing well and was discharged postoperatively to home. She has currently using Xarelto for DVT Prophylaxis. Patient states she started to get drainage on October 18, 2018 over the distal incision. She denies any fall or trauma. Denies any recent fevers or chills. Patient denies numbness and tingling in the left upper extremity. She denies any chest pain or shortness of breath. X-rays were obtained at her 2 week postoperative visit today which revealed a dislocated reverse total shoulder arthroplasty. Case was discussed with Dr. Eduardo Sorto. At this time patient will need open reduction with polyethylene exchange today. Patient is not to take her anticoagulation today. She was also discussed to be n.p.o. the remainder of the day. Patient last ate at 8:30 AM today. After discussion with the patient she did wish to proceed with an open reduction with polyethylene exchange. Patient will be sent directly over to [facility]. REVIEW OF SYSTEMS: ROS: Const: Reports difficulty sleeping, but denies anorexia, anxiety, change in appetite, fever, weight change. CV: Denies chest pain, heart murmur, irregular heartbeat and peripheral vascular disease. Resp: Reports asthma and sleep apnea, but denies cough, pneumonia, shortness of breath, tuberculosis and wheezing. GI: Denies constipation, diarrhea, heartburn, nausea, rectal itching, bloody stools, urinary incontinence and vomiting. : Reports incontinence. Musculo: Denies leg swelling, pain, trouble walking and weakness. Skin: Reports history of shingles, but denies Raynaud's and tattoo. Neuro: Denies ambulatory dysfunction, dizziness, numbness/tingling and tremor. Psych: Reports depression, but denies anxiety, insomnia, mental illness and stress. Manuel/Lymph: Denies anemia, bleeding/bruising tendency and past transfusion. Reviewed, no changes. PAST MEDICAL HISTORY: Advance Care Plan: No Advance Directives Effective Date: 03/11/2017 PMH: Medical Problems: Asthma, Diabetes, Thyroid Disease, History Of Phlebitis Accidents: Fracture - rt elbow, shoulder Surgical Hx: Appendectomy - (1987) Gallbladder - (1988) Hysterectomy - (1987) Tonsillectomy - (1965) Hernia Repair, Ovarian Cyst, Gastric Bypass LT Shoulder ORIF - (03/13/2017) [email or web address] LT Reverse Total Shoulder - (03/10/2018) [email or web address] I & D,Poly Exchange LT Shoulder - (06/29/2018) [email or web address] LT Anti Spacer Removed W/TSR - (10/06/2018) SAW @ [facility] Anesthesia Complications: None Assistive Devices: Glasses, Dentures, Contacts, Hearing Aid Reviewed and updated. 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 Personal Habits: Cigarette Use: Never.Alcohol: Denies use.Drug Use: Denies Use.Enjoy Exercising: Never Exercises. Reviewed, no changes. VITALS: T: 97.6 T: 36.4C ALLERGIES: Tetanus - Swelling In Joints Codeine - Breathing Problems Sulfa - Hives Tape/Steri Strips - Tape/Steri Strips MEDICATIONS: Xarelto 20 mg 1 by mouth every day, Metformin HCL 1000 mg 1 by mouth daily, Levothyroxine Sodium 125 mcg one PO daily, Prozac 20 mg 1 by mouth every day PRE-OP EXAM: General appearance:NORMAL Other: Eyes: Conjunctivae and lids: NORMAL Pupils: ERR Ears, Nose, Mouth, and Throat: NORMAL Other: Inspection of lips, teeth and gums: NORMAL Other: Neck: Examination of neck: no masses noted. Respiratory: Assessment of respiratory effort: NORMAL Other: Auscultation of lungs: clear to auscultation no wheezes, rhonchi or rales. Cardiovascular: Auscultation of heart: regular rate and rhythm, no murmurs, gallops or rubs. Gastrointestinal: Exam of abdomen: soft, nontender, nondistended bowel sounds present. PHYSICAL EXAMINATION: On exam of the left shoulder the sutures are in place with the incision without any significant erythema. There is serous/bloody discharge over one spot at the distal one third of the incision. Remainder of the incision is clean and dry. Patient has limited motion at today's visit. She has full range of motion of the left elbow. Full composite fist full extension of fingers. Sensation intact to light touch. Passive range of motion left shoulder: Forward flexion 20 with pain, abduction 10 with pain, external rotation to neutral. IMAGING STUDIES: X-rays were obtained at [facility] [place] on October 20, 2018 including 3 views which does reveal a anterior/inferior dislocated left reverse total shoulder arthroplasty. The implants appear well fixed. IMPRESSION: 1. Left shoulder dislocated reverse total shoulder arthroplasty: Currently 2 weeks postoperatively 2. Type 2 diabetes mellitus 3. Previous DVT left upper extremity from PICC line 4. Asthma 5. Thyroid disease PLAN: I did discuss and review with the patient all treatment options including surgical versus nonsurgical options. Patient does wish to proceed with the above-stated procedure. Potential risks, benefits, and complications of the procedure were discussed in detail including but not limited to , infection, nerve and blood vessel damage, persistent pain, numbness, tingling, paresthesias, blood clot, pulmonary embolism, and requirement for possible further surgery. The patient expressed full understanding and has no further questions for the doctor. Patient does agree to proceed with the above-stated procedure and has signed the surgery consent form. Patient will be sent directly over to [facility] for surgery today. She is to hold her anticoagulation. She last took her Xarelto last night. She will remain in the UltraSling until surgery. This dictation was created using voice recognition software. Phonetic and/or grammatical errors may exist.. ___ I have re-examined the patient. There are no clinical changes since date of exam. ___ See progress notes for changes. ___ Dictated on admission Date: Time: Signature:
[2018-10-20] MEDS: Acetaminophen 500 MG Tablet 1000 MG PO ×2 (12:25→22:18)
[2018-10-20] MEDS: Celecoxib 200 MG Capsule 400 MG PO (12:25)
[2018-10-20] MEDS: Gabapentin 600 MG Tablet PO (12:25)
[2018-10-20] MEDS: Magnesium Sulfate 4gm/100mL 4 GM/100 ML IV.SOLN. IV (14:33)
[2018-10-20 14:40] LABS: Bedside Glucose 98 mg/dL (70-110)
[2018-10-20] MEDS: Scopolamine 1mg/72hr Patch 1 PATCH TD (15:50)
--- NOTE | 2018-10-20 20:00 | PCM.OPRPT ---
Report of Operation Date of Procedure: 10/20/18 Pre-Operative Diagnosis: Instability, dislocation left reverse total shoulder replacement Post-Operative Diagnosis: Instability, dislocation left reverse total shoulder replacement Surgery/Procedure Performed:: Revision left total shoulder replacement glenosphere and humeral cup Description of Surgical Findings:: Stable shoulder dust mill operator: Marco A Saleh Type of Anesthesia:: General Anesthesiologist: Kev Badillo Special Medications: 2 g Ancef, joint cocktail (5 mg Duramorph, 30 mL of 0.5% Ropivicaine, 1000 units of epinephrine, 30 mg of Toradol), 2 g vancomycin given at incision Specimen's removed: 3 separate specimens were sent to micrology Estimated Blood Loss (mL): 200 Fluids Replaced: 1000 mL crystalloid Description of Procedure: Components used 1. Equinox 32+6 mm Glenosphere 2. Equinox 32mm, 6mm humeral liner 3. Equinox reverse TSA humeral adapter tray 4mm Procedure: On the date of the procedure, patient's L upper extremity was marked in the preoperative area. Patient was taken back to the operating room where they were placed on the table in the supine position. Anesthesia assumed control of the C-spine and airway, then administered anesthetic. All bony prominences were identified well-padded, the head was secured and the patient was placed in the beachchair position at about 35? inclination. Anesthesia remained in control of the C-spine airway throughout the remainder of the procedure. After patient was appropriately anesthetized and attempted closed reduction was performed and it remained reduced. Patient was then appropriately fastened to the table and the L upper extremity was prepped in a sterile fashion. The surgeons then scrubbed. Upon reentering the room, the L upper extremity was draped in a sterile fashion and the incision was marked out, using the previous incision. Timeout was called, everyone agreed upon the side, the site, the procedure to be performed, patient identity and antibiotics given. Incision was taken down through skin and subcutaneous tissue, fat down to fascia. The previous interval was identified from previous sutures. Sutures were removed and this interval was opened. We could immediately then see into the joint. At this point the shoulder could be dislocated. The shoulder was again reduced with the shoulder through range of motion. The most provocative position for the shoulder for dislocation was traction and external rotation. Without traction the shoulder appeared to be stable in external rotation. We again dislocated the shoulder and use the tuning fork to dislodge the humeral head Reeder taper. Once this was done we then directed our attention to the glenosphere. Glenosphere was removed using the removal tool. Once this was done the wound was addison irrigated out normal saline after performing a 1 minute Irricept lavage. Once this was done we elected to proceed with trialing. We then we trialed adding a 10 mm humeral baseplate and 4 mm liner this did give us some stability. However considering the previous +2 mm glenosphere we elected to place a +6 glenosphere. Trunnion was cleaned off and the Reeder taper was impacted into place. After this we trialed the 6mm liner, with the 4mm humeral baseplate. We obtained an adequate reduction at this time with a nice stable shoulder. Good internal rotation to the gluteus, forward elevation to 140?, external rotation to 20?. The arm can only be dislocated with significant traction and external rotation. We did trial a 8 mm liner however this seemed to be too much tension on the soft tissues and limited the patient's mobility and range of motion. Shoulder was again dislocated trial components were removed. Wound was copiously irrigated out normal saline. Final components were then assembled on the back table, trials were removed and the wound was copiously irrigated with normal saline after dislocating the shoulder. Once the final components were assembled they were impacted into place. Shoulder was then reduced and found to be stable with good range of motion. The wound was then copiously irrigated out with a 1 minute Irricept lavage and a 1 L normal saline lavage. The deltopectoral fascia was then closed using #1 Vicryl skin was closed using 2-0 Vicryl interrupted sutures and final skin closure was done with 3-0 Monocryl. Steri-Strips are placed for final skin closure. Sterile dressing was placed patient was then placed in a sling and awakened by anesthesia. Patient was then transferred to the PACU for recovery. Postoperative plan: Patient will be admitted to the hospital overnight. They will get physical therapy starting in 2 weeks with normal postoperative regimen. Patient will be placed on xarelto daily for DVT prophylaxis. The first postoperative appointment will be in 2 weeks for wound check and initiation of phase 1 physical therapy. During the course of the procedure the physician assistant teacher primary played a vital role. His intimate knowledge of my steps in the procedure aided in safe and expedient completion of the procedure. The PA played a vital rolls in positioning particularly in obtaining the appropriate beach chair position and securing the patient's body and head to the table. The PA was also vital in the retraction of soft tissues during the exposure and especially the glenoid work as this is a vital part of the procedure to prevent neurovascular damage. the PA was also vital and protecting soft tissues during times of bony cuts and reaming. He also played a vital role in closure with my direct supervision. The PA was also important during reduction and dislocation of the joint and trials intraoperatively. Grafts/Implants Used: Jose reunion reverse total shoulder - Complications No intraoperative complications - Admit VTE Documentation VTE Present on Admission: No VTE Mechan Device Prophylaxis: SCD's VTE Pharm Prophylaxis ordered?: Yes
--- NOTE | 2018-10-20 20:58 | RAD_ITS ---
STUDY: X-RAY - LEFT SHOULDER REASON FOR EXAM: Female, 62 years old. Postop left shoulder TECHNIQUE: 3 view(s) of the shoulder. COMPARISON: Prior study of 10/06/2018 FINDINGS: Status post total left shoulder replacement changes are noted with implants appearing in good position. There is no evidence of associated fracture. Findings appear similar to the prior study. RAD/Shoulder min 2 Views IMPRESSION: Status post total left shoulder replacement changes noted with implants appearing in good position. There is no evidence of associated fracture. Electronically Signed: Richard Nassar MD at 21:24 EDT , Service support ,
[2018-10-20 21:26] LABS: Bedside Glucose 201 mg/dL (70-110)
[2018-10-20 22:10] LABS: Bedside Glucose 195 mg/dL (70-110)
[2018-10-20] MEDS: Lactated Ringers 1,000 ML 90 ML IV (22:10)
[2018-10-20] MEDS: Cefazolin 1 GM/50 ML BAG IV (22:10)
[2018-10-20] MEDS: Senna/Docusate Sodium 1 Tablet 2 TABLET PO (22:13)
[2018-10-20] MEDS: Atorvastatin Calcium 10 MG Tablet PO (22:13)
[2018-10-20] MEDS: Doxycycline 100 MG CAPSULE PO (22:13)
[2018-10-20] MEDS: Insulin Lispro 100 UNIT/ML INSULN.PEN SC (22:18)
--- NOTE | 2018-10-20 23:45 | NURSING ---
ASSISTED PT TO STAND AT BEDSIDE AND THEN AMBULATE TO [facility] AND BACK TO BED WITH SUPERINTENDENT POWER DOMONIQUE. PT ALEJANDRO WELL. DENIES FEELING DIZZY OR LIGHT HEADED.
[2018-10-21] VITALS (8 sets, daily range): BP systolic 101–139; BP diastolic 43–65; PULSE 61–90; RESP 16–18; TEMP 36.4–37; O2SAT 93–98
[2018-10-21] MEDS: Lactated Ringers 1,000 ML 90 ML IV ×2 (01:48→13:13)
--- NOTE | 2018-10-21 02:53 | CON.PCM_ITS ---
Problem List (1) DVT of upper extremity (deep vein thrombosis) Status: Acute Qualifiers: Affected thrombotic vein of extremity: axillary Chronicity: acute Laterality: right Qualified Code(s): I82.A11 - Acute embolism and thrombosis of right axillary vein (2) Obstructive sleep apnea Status: Chronic Comment: Wears CPAP (3) Hypothyroidism Status: Chronic (4) Diabetes mellitus, type II Status: Chronic Reason for Consult Date of Consultation: 10/21/18 Reason for Consultation: Post-op medical management. History of Present Illness: The patient is a 62 year old F with a significant history of obstructive sleep apnea on CPAP; hypothyroidism; type 2 diabetes; multiple left shoulder infections with left shoulder surgery who is postop day 1 for revision of left total shoulder replacement glenosphere and humeral cup. Internal medicine service has been consulted for postop medical management. Patient complained of minimal pain in her left shoulder. Past Medical History Past Medical History (Chronic Problems): Chronic Problems (Last Reviewed 10/21/18 @ 03:41 by Jeremy Strickland MD) Obstructive sleep apnea (Chronic) Wears CPAP Hypothyroidism (Chronic) Diabetes mellitus, type II (Chronic) Abnormal EKG (Chronic) Postop ekg changes along with elevated troponin 03/11/18 Medical History: Medical History (Last Reviewed 10/21/18 @ 03:41 by Jeremy Strickland MD) Obstructive sleep apnea (Chronic) G47.33 Wears CPAP Hypothyroidism (Chronic) E03.9 Diabetes mellitus, type II (Chronic) E11.9 Abnormal EKG (Chronic) R94.31 Postop ekg changes along with elevated troponin 03/11/18 Staph infection B95.8 left shoulder after total reversal Dr Sorto Allergies adhesive tape Allergy (Verified 10/20/18 14:04) BLISTERS/SCARS codeine Allergy (Verified 10/20/18 14:04) Shortness of breath Sulfa (Sulfonamide Antibiotics) Allergy (Verified 10/20/18 14:04) Rash Tetanus Vaccines and Toxoid [Tetanus Vaccines & Toxoid] Allergy (Verified 10/20/18 14:04) Swelling meperidine HCl [From Demerol] Adverse Reaction (Verified 10/20/18 14:04) Itching STERISTRIPS Allergy (Uncoded 10/20/18 14:04) BLISTERS/SCARS Home Medications: Ambulatory Orders Medication Instructions Recorded Fluoxetine [Prozac] 20 mg PO DAILY 06/05/14 Cholecalciferol (Vitamin D3) 10,000 unit PO DAILY 06/28/18 [Vitamin D3] Levothyroxine Sodium [Synthroid] 125 mcg PO DAILY 06/28/18 Metformin HCl [Metformin ER 1,000 mg PO DAILY 06/28/18 Osmotic] Simvastatin 20 mg PO QHS 06/28/18 Acetaminophen [Tylenol] 1,000 mg PO Q8 PRN 07/21/18 Rivaroxaban [Xarelto] 20 mg PO DAILY 09/24/18 Acetaminophen [Tylenol] 1,000 mg PO Q8 #100 tablet 10/08/18 Doxycycline 100 mg PO BID #60 capsule 10/08/18 Famotidine [Pepcid] 20 mg PO DAILY #30 tablet 10/08/18 Senna/Docusate Sodium [Senokot-S] 2 tablet PO BID tablet 10/08/18 Surgical History: Surgical History (Last Reviewed 10/21/18 @ 03:41 by Jeremy Strickland MD) History of hemiarthroplasty of left shoulder Onset Date: 03/12/18 Z96.612 ORIF left humeral head and neck per Dr. Perry Sorto Humeral head fracture S42.293A Surgical History: cholecystectomy, gastric bypass, hysterectomy, - - Cyst r emoved from ovary. Smoking Status: Never smoker Alcohol: None - *Family History Maternal Family History: Family History (Last Updated 10/21/18 @ 03:48 by Jeremy Strickland MD) Mother Carotid stenosis Hx of CABG Father Diabetes Review of Systems Constitutional: Denies: Chills, Fever, Weight Change HEENT: Denies: Head Aches, Sinus Congestion, Sinus Drainage Cardiovascular: Denies: Chest Pain, Palpitations Respiratory: Denies: Cough, Shortness of breath at rest, Sputum production Gastrointestinal: Denies: Abdominal Pain, Nausea, Vomiting Genitourinary: Denies: Dysuria Musculoskeletal: Reports: Joint Pain - left shoulder Skin: Denies: Rash, Wounds Neurological: Denies: Numbness, Tingling, Focal weakness Psychiatric: Denies: Anxiety, Depression, Homicidal Ideations, Suicidal Ideations Hematologic/ Lymphatic: Denies: Easy Bruising, Easy Bleeding - Physical Exam General: Alert, Oriented x3, - - Obese HEENT: Atraumatic, PERRLA, EOMI, Normocephalic Neck: Supple, No JVD, Negative Carotid Bruits Lungs: Clear to auscultation, Normal air movement Cardiovascular: Regular rate, No murmurs Abdomen: Bowel Sounds Present, Soft, Non Tender Extremities: Capillary Refill Less than 3 Seconds, - Skin: - - Mild erythema of left arm. Dry and intact dressing on left upper arm. Hemovac appratus on left upper arm; ice apparatus in place. Did not appear tender Musculoskeletal: No Tenderness to Palpation of Joints or Extremities Neurological: Neuro grossly intact Psych/Mental Status: Normal Affect, Appropriate Vital Signs Temp Pulse Resp BP Pulse Ox 98 F 90 16 118/60 96 10/21/18 01:43 10/21/18 01:43 10/21/18 01:43 10/21/18 01:43 10/21/18 01:43 Oxygen Flow Rate (L/min) 6 Oxygen Delivery Method Bi-pap Weight: 139 kg Body Mass Index (BMI) 52.6 Finger Stick Blood Glucose 201 Intake and Output for Last 24 Hours 10/19/18 10/20/18 10/21/18 23:59 23:59 23:59 Intake Total 1000 / 1979 980 / 980 Output Total 200 / 200 Balance 1000 / 1780 780 / 780 POC Glucose 10/20/18 10/20/18 10/20/18 22:06 21:19 14:21 POC Glucose 195 H 201 H 98 Assessment/Plan All Active Problems (Last Reviewed 10/21/18 @ 03:41 by Jeremy Strickland MD) Infection of prosthetic shoulder joint (Acute) DVT of upper extremity (deep vein thrombosis) (Acute) The patient is a 62 year old F with a significant history of obstructive sleep apnea on CPAP; hypothyroidism; type 2 diabetes; multiple left shoulder surgeries and infections who is postop day 1 for revision of left total shoulder replacement glenosphere and humeral cup. Left total shoulder replacement glenosphere and humeral Postop day 1 On doxycycline p.o. and cefazolin IV. Per nurse, patient received Vancomycin at Surgery. On morphine IV as needed; Toradol IV as needed; and oxyir as needed. Ice to site. Phenergan IM as needed for nausea/vomiting. Zofran IV as needed for nausea/vomiting. Bowel protocol with Senokot-S. Management per primary. Hyperlipidemia Statin continued GERD Pepcid continued Depression Prozac continued Diabetes mellitus Blood glucose initially was low (98) likely due to n.p.o. status. Her blood glucose after surgery was noted to be above goal (high) likely secondary to stress from surgery. On metformin and correction scale insulin. On Accu-Chek QA CHS. Currently patient is on clear liquids. On lactated Ringer's maintenance infusion. Obstructive sleep apnea: On CPAP at night. History of DVT at chest and right hand secondary to previous PICC: On Xarelto. Patient follows up with Dr. Chahal, assistance representative/oncologist. DVT prophylaxis: Already on Xarelto for history of DVT. Code Visit Inpatient E&M: 06112 Init Hosp L3
[2018-10-21] MEDS: Cefazolin 1 GM/50 ML BAG IV (05:21)
[2018-10-21] MEDS: Acetaminophen 500 MG Tablet 1000 MG PO ×3 (05:21→20:55)
[2018-10-21] MEDS: Levothyroxine 125 MCG Tablet PO (05:21)
[2018-10-21 06:25] LABS: Hematocrit 32.5 % (37-47); Hemoglobin 10.2 g/dl (12.0-15.0); Mean Corp Hgb Conc 31.4 g/gl (32-36); Mean Corpuscular Hgb 27.3 pg (27.0-32.0); Mean Corpuscular Volume 87.1 fL (81-99); Platelet Count 290 K/mm3 (150-450); RBC Distribution Width CV 14.3 % (11.6-14.6); RBC Distribution Width SD 43.9 fl (35.1-43.9); Red Blood Count 3.73 M/mm3 (4.2-5.4); White Blood Count 10.4 K/mm3 (4.4-11.0)
[2018-10-21 06:32] LABS: Scan Indicated on CBC? Y/N NO
[2018-10-21 06:41] LABS: BUN 21 mg/dL (7-18); Estimated Creatinine Clearance 43.05 ml/min; Glucose 195 mg/dL (74-106)
[2018-10-21 06:42] LABS: Anion Gap 6 (5-15); BUN/Creat Ratio 17.5 RATIO (10-20); Calcium,Total 8.1 mg/dL (8.5-10.1); Chloride 106 mmol/L (98-107); EST Glomerular Filtration Rate 49 mL/min (>60); Est Glom Filt Rate - Afr Amer 59 mL/min (>60); Potassium 5.3 mmol/L (3.5-5.1); Sodium Level 137 mmol/L (136-145)
[2018-10-21] MEDS: Insulin Lispro 100 UNIT/ML INSULN.PEN SC ×4 (06:52→20:56)
[2018-10-21 07:00] LABS: Bedside Glucose 176 mg/dL (70-110)
--- NOTE | 2018-10-21 08:20 | PN.ORTHO_ITS ---
Subjective: The patient was sitting in bed eating breakfast upon examination. Patient denies any chest pain, shortness of breath, dizziness, lightheadedness, nausea or vomiting, or calf pain. Pain is controlled on medications. No adverse overnight events. Patient is doing well this morning. Patient does have drain in left shoulder. Currently using the UltraSling. Patient states overall her pain is been well controlled. She denies numbness and tingling. Objective: Vital signs stable, afebrile Dressing is clean, dry, intact Ultra-sling fitting appropriately Sensation intact to axillary, radial, median, and ulnar distribution Motor intact to AIN, PIN, and ulnar nerve Hemovac drain in place with minimal output. There was 20 mL output documented. - Physical Exam General: Alert, Oriented x3, Cooperative, No apparent distress Vital Signs Temp Pulse Resp BP Pulse Ox 98.5 F 83 16 128/65 H 95 10/21/18 05:18 10/21/18 05:18 10/21/18 05:18 10/21/18 05:18 10/21/18 05:18 Oxygen Flow Rate (L/min) 6 Oxygen Delivery Method Room Air Weight: 139 kg Body Mass Index (BMI) 52.6 Finger Stick Blood Glucose 201 Intake and Output for Last 24 Hours 10/19/18 10/20/18 10/21/18 23:59 23:59 23:59 Intake Total 999 1697 / 1697 Output Total 640 / 640 Balance 1000 / 1780 1057 / 1057 Laboratory Tests Past 24 Hrs 10/21/18 10/21/18 05:10 05:10 WBC 10.4 RBC 3.73 L Hgb 10.2 L Hct 32.5 L MCV 87.1 MCH 27.3 MCHC 31.4 L RDW 14.3 RDW Differential 43.9 Plt Count 290 MPV 10.0 Sodium 137 Potassium 5.3 H Chloride 106 Carbon Dioxide 25.0 Anion Gap 6 BUN 21 H Creatinine 1.20 H Estim Creat Clear Calc 43.05 Est GFR (MDRD) Af Amer 59 L Est GFR (MDRD) Non-Af 49 L BUN/Creatinine Ratio 17.5 Glucose 195 H Calcium 8.1 L POC Glucose 10/21/18 10/20/18 10/20/18 06:49 22:06 21:19 POC Glucose 176 H 195 H 201 H 10/20/18 14:21 POC Glucose 98 Medical Necessity - Tobacco Use Smoking Status: Never smoker Assessment/Plan All Active Problems (Last Reviewed 10/21/18 @ 03:41 by Jeremy Strickland MD) Infection of prosthetic shoulder joint (Acute) DVT of upper extremity (deep vein thrombosis) (Acute) 1. S/P revision left reverse total shoulder replacement secondary to dislocation POD #1 2. Continue Pain Medications: Tylenol and OxyIR 3. DVT Prophylaxis: Xarelto, secondary to history of DVT at the chest and right hand secondary to previous PICC line. 4. PT/OT: No range of motion left shoulder, okay for elbow, wrist, hand range of motion only. Continue with UltraSling. 5. H & H: 10.2/32.5, asymptomatic 6. Encouraged Incentive Spirometry 7. Continue postoperative medical management per medicine 8. Consult wound VAC nurse: Plan will be for placement of wound VAC due to patient's history of draining wounds and multiple surgeries. 9. Hemovac drain: Currently with 20 mL's output, plan will be for removal of drain prior to discharge. 10. Disposition: Plan will be for possible discharge home with home health care tomorrow. Wound VAC nurse getting approval for wound VAC. If needed we can use VAC via with follow-up in [facility] wound care center in 1 week.
[2018-10-21] MEDS: Ensure Surgery 237 ML LIQUID PO ×3 (09:13→17:43)
[2018-10-21] MEDS: metFORMIN (XR) 500 MG Tablet 1000 MG PO (09:13)
[2018-10-21] MEDS: Senna/Docusate Sodium 1 Tablet 2 TABLET PO ×2 (09:42→20:55)
[2018-10-21] MEDS: FLUoxetine 20 MG Capsule PO (09:43)
[2018-10-21] MEDS: Doxycycline 100 MG CAPSULE PO ×2 (09:43→20:55)
[2018-10-21] MEDS: Famotidine 20 MG Tablet PO (09:44)
[2018-10-21 11:50] LABS: Bedside Glucose 169 mg/dL (70-110)
--- NOTE | 2018-10-21 12:12 | CASEMGMT ---
ASH ALFREDO chart review: Patient was admitted 10/06/18-10/08/18 for removal of spacer and total shoulder. Patient was discharged to home with family support and follow-up plans in place with [facility]. See ASH ALFREDO assessment from 10/07/18. Patient was admitted 10/20/18 for shoulder dislocation and total shoulder repair. ASH ALFREDO updated that patient will need wound vac and HHC at discharge. ASH ALFREDO followed up with patient and is agreeable to [facility]. RN SAYDA updated [facility] regarding referral and are able to accept the patient. ASH ALFREDO updated Workman's comp nurse at [facility], Jodi, regarding C9s for Workman's comp. Jodi stated that she would submit all C9s for this admission and aftercare. ASH ALFREDO updated Jodi with services needed at discharge. CM to continue to follow this patient and plan for a safe discharge.
--- NOTE | 2018-10-21 15:30 | NURSING ---
Home VAC approved. Pt will most likely be discharged home tomorrow. will switch patient over to the home VAC at that time. Case management as home health set up for patient at home for VAC changes.
[2018-10-21 16:16] LABS: Bedside Glucose 154 mg/dL (70-110)
[2018-10-21] MEDS: Rivaroxaban 20 MG Tablet PO (20:54)
[2018-10-21] MEDS: Atorvastatin Calcium 10 MG Tablet PO (20:55)
[2018-10-21 21:11] LABS: Bedside Glucose 175 mg/dL (70-110)
[2018-10-22 03:00] VITALS: BP 126/66; PULSE 60; RESP 18; TEMP 36.6; O2SAT 96
[2018-10-22] MEDS: Acetaminophen 500 MG Tablet 1000 MG PO (05:59)
[2018-10-22] MEDS: Levothyroxine 125 MCG Tablet PO (05:59)
--- NOTE | 2018-10-22 06:48 | PN.ORTHO_ITS ---
Subjective: The patient was sitting in bed upon examination. Patient denies any chest pain, shortness of breath, dizziness, lightheadedness, nausea or vomiting, or calf pain. Pain is controlled on medications. No adverse overnight events. Patient also only required Tylenol for pain control. Overall she is doing well. Wound VAC has been placed. There is been minimal output in the Hemovac drain. Objective: Vital signs stable, afebrile Wound VAC has been placed. Hemovac drain is with minimal output. This was pulled today with 2 x 2 and OpSite placed. Ultra-sling fitting appropriately Sensation intact to axillary, radial, median, and ulnar distribution Motor intact to AIN, PIN, and ulnar nerve - Physical Exam General: Alert, Oriented x3, Cooperative, No apparent distress Vital Signs Temp Pulse Resp BP Pulse Ox 97.8 F 60 18 126/66 H 96 10/22/18 03:00 10/22/18 03:00 10/22/18 03:00 10/22/18 03:00 10/22/18 03:00 Oxygen Flow Rate (L/min) 6 Oxygen Delivery Method CPAP Weight: 139 kg Body Mass Index (BMI) 52.6 Finger Stick Blood Glucose 201 Intake and Output for Last 24 Hours 10/20/18 10/21/18 10/22/18 23:59 23:59 23:59 Intake Total 999 / 1979 3488 / 4038 1100 / 1100 Output Total 1745 / 1745 Balance 1000 / 1780 1743 / 2293 1100 / 1100 Microbiology Past 72 Hours 10/20/18 20:58 Gram Stain - Final Biopsy - Other Wound Culture - Preliminary No growth-Final to follow 10/20/18 20:58 Gram Stain - Final Biopsy - Other Wound Culture - Preliminary No growth-Final to follow 10/20/18 20:58 Gram Stain - Final Biopsy - Other Wound Culture - Preliminary No growth-Final to follow POC Glucose 10/21/18 10/21/18 10/21/18 20:50 16:05 11:27 POC Glucose 175 H 154 H 169 H 10/21/18 06:49 POC Glucose 176 H Medical Necessity - Tobacco Use Smoking Status: Never smoker Assessment/Plan All Active Problems (Last Reviewed 10/21/18 @ 03:41 by Jeremy Strickland MD) Infection of prosthetic shoulder joint (Acute) DVT of upper extremity (deep vein thrombosis) (Acute) 1. S/P revision left reverse total shoulder replacement secondary to dislocation POD #2 2. Continue Pain Medications: Tylenol and OxyIR, patient is only required Tylenol for pain control 3. DVT Prophylaxis: Xarelto, secondary to history of DVT at the chest and right hand secondary to previous PICC line. 4. PT/OT: No range of motion left shoulder, okay for elbow, wrist, hand range o f motion only. Continue with UltraSling. 5. Encouraged Incentive Spirometry 6. Continue postoperative medical management per medicine 7. Consult wound VAC nurse: Plan will be for placement of wound VAC due to patient's history of draining wounds and multiple surgeries. Plan will be for changes on Mondays and . 8. Hemovac drain: Hemovac drain pulled today with 2 x 2 and OpSite placed. 9. Disposition: Orthopedically stable, pain is well controlled. Patient will be discharged home today with home health care. Wound VAC is in place with scheduled changes on Mondays and . We will see patient back next in 1 week for incision check and to make sure patient is tolerating the wound VAC. Patient already has her oxycodone, Tylenol, and Xarelto at home. No prescriptions will be given today.
--- NOTE | 2018-10-22 07:18 | DCINST_ITS ---
Discharge Diet: 1800 Calorie Control Diet Discharge Activity: May Not Drive Ice area for (Minutes): 20 - Ice area for 20 minutes each hour while awake Weight Bearing Status: No weight bearing - Left upper extremity Call your doctor if your incision/area has: Continuous Slow Oozing, Sudden Increased Bleeding, Increased Pain/ Swelling, Increased Redness, Foul Smelling Discharge Call your doctor if you observe: Fever of 101 or Higher, Coldness, Increased Pain, Numbness or Tingling, Change in Color Additional Instructions: Wound VAC in place, changes will be done on Mondays and by home health. Allergies/Adverse Reactions: Allergies adhesive tape Allergy (Verified 10/20/18 14:04) BLISTERS/SCARS codeine Allergy (Verified 10/20/18 14:04) Shortness of breath Sulfa (Sulfonamide Antibiotics) Allergy (Verified 10/20/18 14:04) Rash Tetanus Vaccines and Toxoid [Tetanus Vaccines & Toxoid] Allergy (Verified 10/20/18 14:04) Swelling meperidine HCl [From Demerol] Adverse Reaction (Verified 10/20/18 14:04) Itching STERISTRIPS Allergy (Uncoded 10/20/18 14:04) BLISTERS/SCARS Medications to take at Discharge Fluoxetine [Prozac] 20 mg PO DAILY 06/05/14 Cholecalciferol (Vitamin D3) [Vitamin D3] 10,000 unit PO DAILY 06/28/18 Levothyroxine Sodium [Synthroid] 125 mcg PO DAILY 06/28/18 Metformin HCl [Metformin ER Osmotic] 1,000 mg PO DAILY 06/28/18 Simvastatin 20 mg PO QHS 06/28/18 Acetaminophen [Tylenol] 1,000 mg PO Q8 PRN 07/21/18 Rivaroxaban [Xarelto] 20 mg PO DAILY 09/24/18 Doxycycline 100 mg PO BID #60 capsule 10/08/18 Famotidine [Pepcid] 20 mg PO DAILY #30 tablet 10/08/18 Oxycodone [Oxyir] 5 - 10 mg PO Q4H PRN PRN 7 Days tab 10/22/18 Senna/Docusate Sodium [Senokot-S] 2 tab PO BID tab 10/22/18 Primary Care Physician: Diana Martinez DO [Primary Care Provider] - Test Results: Test results from this visit will be discussed in further detail at your follow- up appointment, if applicable. Please Follow Up With: Marco A Saleh PA-C When: Follow-up in 1 week for wound check Please Follow Up With: Eduardo Sorto MD When: 11/01/18 @ 2:45 pm
[2018-10-22 08:05] VITALS: BP 124/84; PULSE 57; RESP 16; TEMP 36.6; O2SAT 96
[2018-10-22] MEDS: Ensure Surgery 237 ML LIQUID PO (08:16)
--- NOTE | 2018-10-22 08:17 | NURSING ---
Pt has been approved for the home VAC and JAM Haines had been in to see patient already this am. pt is being discharged home today with home health for VAC changes. the VAC sponge appears like it had moved through the night and was slightly to the side of the incision in the central portion of the incision. dressing changed for that reason. is now along the incision well. Good seal noted at 75mmHg low continuous suction. drain had been removed per JAM Haines this am. there was a large amount of serosanguineous drainage noted from this site. new dressing applied over drain site as well.
[2018-10-22 08:21] LABS: Bedside Glucose 118 mg/dL (70-110)
[2018-10-22] MEDS: metFORMIN (XR) 500 MG Tablet 1000 MG PO (09:29)
== END 2018-10-22 10:16 | disposition home health service (06) | DRG 483 ==
LOC: ACINP 15:25 → MS3 10-21 10:21
PROVIDERS: Admitting Provider Specialist; Family Provider Internal Medicine; PCP Internal Medicine; Visit Provider Specialist
PROC: 0RRK0JZ Replacement of Left Shoulder Joint with Synthetic Substitute, Open Approach (ICD-10-PCS; principal; 2018-10-20 16:45)
DX: T84.028A Dislocation of other internal joint prosthesis, initial encounter (principal); M25.312 Other instability, left shoulder; Z96.612 Presence of left artificial shoulder joint; K21.9 Gastro-esophageal reflux disease without esophagitis; E11.9 Type 2 diabetes mellitus without complications; F32.9 Major depressive disorder, single episode, unspecified; F41.9 Anxiety disorder, unspecified; E03.9 Hypothyroidism, unspecified; G47.33 Obstructive sleep apnea (adult) (pediatric); J45.909 Unspecified asthma, uncomplicated; E78.5 Hyperlipidemia, unspecified; Z79.890 Hormone replacement therapy; Z86.718 Personal history of other venous thrombosis and embolism; Z79.01 Long term (current) use of anticoagulants; Z79.84 Long term (current) use of oral hypoglycemic drugs; Z79.899 Other long term (current) drug therapy
CPT/HCPCS: 36415; 73030; 80048; 82962; 85027; 87015; 87070; 87075; 87102; 87116; 87176; 87205; 87206; 99251; C1776; J7040; J7120; G0463; J2405

== ENCOUNTER 2018-10-31 20:46 | Emergency (ER) | payer OTHER, SELFPAY ==
[2018-10-20 22:21] VITALS: BMI 52.6
[2018-10-31 20:48] VITALS: BP 160/105; PULSE 98; RESP 18; TEMP 36.9; O2SAT 97; BMI 51.8
[2018-10-31] MEDS: Cefazolin 1 GM/50 ML BAG IV (21:21)
[2018-10-31 21:58] LABS: Absolute Lymphocyte Count 2.48 X10^3/ul (0.83-4.51); Absolute Neutrophil Count 6.9 X10^3/uL (2.0-7.7); Basophil# 0.02 X10^3/uL; Basophil% 0.2 % (0-1); Eosinophils% 4.7 % (0-5); Hematocrit 33.4 % (37-47); Hemoglobin 10.8 g/dl (12.0-15.0); Lymphocyte # 2.48 X10^3/ul (4.0); Lymphocyte % 23.6 % (19-41); Mean Corp Hgb Conc 32.3 g/gl (32-36); Mean Corpuscular Hgb 28.1 pg (27.0-32.0); Mean Platelet Vol. 9.3 fl (6.2-12.0); Monocyte# 0.61 X10^3/uL; Monocyte% 5.8 % (0-10); Neutrophil # 6.91 X10^3/uL (2.7-7.7); Neutrophil % 65.6 % (47-70); Platelet Count 242 K/mm3 (150-450); RBC Distribution Width CV 14.6 % (11.6-14.6); Red Blood Count 3.84 M/mm3 (4.2-5.4); White Blood Count 10.5 K/mm3 (4.4-11.0)
[2018-10-31 21:59] LABS: POSITIVE COUNT NO; POSITIVE DIFFERENTIAL NO; POSITIVE MORPHOLOGY NO
[2018-10-31 22:10] LABS: Anion Gap 5 (5-15); BUN 19 mg/dL (7-18); BUN/Creat Ratio 19.2 RATIO (10-20); Calcium,Total 8.5 mg/dL (8.5-10.1); Chloride 108 mmol/L (98-107); Creatinine, Serum 0.99 mg/dL (0.55-1.02); EST Glomerular Filtration Rate 61 mL/min (>60); Est Glom Filt Rate - Afr Amer 73 mL/min (>60); Estimated Creatinine Clearance 51.53 ml/min; Glucose 169 mg/dL (74-106); Sodium Level 139 mmol/L (136-145)
--- NOTE | 2018-10-31 22:14 | ED.DCSUM_ITS ---
- ER Visit Summary Date of Service: 10/31/18 Chief Complaint: Wound check History of Present Illness: The patient is a 63 F who had a left shoulder revision on October [address] Sorto. She still has wound VAC in place and is on doxycycline. She states she had slight increased pain to her left shoulder tod ay and ice the area but tonight noted slight redness and states the area felt warm. She denies fever or chills. Physical Examination: Patient is afebrile. Patient sitting upright in bed no acute distress. Heart is regular rate and rhythm. Lung sounds are clear. Left upper extremity examination reveals wound VAC to be in place with clean edges. She has minimal erythema measuring approximately 6 x 10 cm distal to the wound VAC site. The area is minimally warmer than the surrounding tissue. Strong pulses are noted. Test Results: CBC was normal white count. Normal differential. Emergency Department Course and Treatment: Patient was given a dose of IV Ancef and vancomycin. I spoke with Dr. Sorto. He asked that we add a sed rate and CRP. Give the patient the IV antibiotics as ordered and have her continue doxycycline at home. He will call the patient tomorrow to review her labs with her and discuss any further changes to her medication. Treatment Plan: [] Disposition: Discharge Impression: 1. Left upper extremity erythema 2. Status post left shoulder replacement This note was generated with [employer] dictation software. It may contain incorrect words, spelling, and punctuation that were not noted in review of the chart prior to signing ED Disposition - Plan for ED Patient: Disposition: Home or Assisted Living Instructions: Cellulitis Referrals: Eduardo Sorto MD [STAFF PHYSICIAN] - Additional Instructions: Dr Sorto will call you tomorrow to review your lab results and any further instructions for your shoulder. You should continue your Doxycycline at home.
[2018-10-31 22:32] LABS: CRP 9.42 mg/L (0.0-3.0)
[2018-10-31 22:57] LABS: Erythrocyte Sedimentation Rate 28 mm/hr (0-30)
[2018-10-31] MEDS: 0.9% Normal Saline 1,000 ML 150 ML IV (23:02)
[2018-10-31 23:32] VITALS: RESP 16
== END 2018-11-01 00:55 | disposition home or self-care (01) ==
PROVIDERS: Emergency Provider Emergency Medicine; Family Provider Internal Medicine; PCP Internal Medicine
DX: L53.8 Other specified erythematous conditions (principal); Z96.612 Presence of left artificial shoulder joint; E11.9 Type 2 diabetes mellitus without complications; Z86.718 Personal history of other venous thrombosis and embolism; Z79.01 Long term (current) use of anticoagulants; Z79.84 Long term (current) use of oral hypoglycemic drugs; Z79.899 Other long term (current) drug therapy
CPT/HCPCS: 80048; 85025; 85652; 86140; 96361; 96365; 96367; 99283; J7030; J7040; J7050

== ENCOUNTER 2018-11-08 13:28 | Emergency (ER) | payer OTHER, SELFPAY ==
[2018-11-08 13:29] VITALS: BP 183/95; PULSE 106; RESP 16; TEMP 36.6; O2SAT 99; BMI 51.8
--- NOTE | 2018-11-08 14:54 | RAD_ITS ---
STUDY: X-RAY - LEFT SHOULDER REASON FOR EXAM: Female, 63 years old. Shoulder pain TECHNIQUE: 5 view(s) of the shoulder. COMPARISON: 10/20/2018 FINDINGS: Status post glenohumeral joint reverse arthroplasty. The prosthesis appears located. There is degenerative arthrosis of the acromioclavicular joint without inferior osseous spur formation. Normal acromion. Normal humeral head and visualized proximal humerus. The soft tissue structures are unremarkable. Normal visualized pulmonary apex. RAD/Shoulder min 2 Views IMPRESSION: No change from 10/20/2018. Electronically Signed: Curt Post MD at 15:30 EDT Tel , Service support ,
--- NOTE | 2018-11-08 15:36 | ED.VIS.GEN ---
History of Present Illness Chief Complaint: Upper Extremity Injury Informant: Patient Current Severity: Moderate Maximum Severity: Moderate Narrative: Patient presents with chronic recurrent left shoulder pain. She has had multiple surgeries, she is in a splint, she is wondering if this is dislocated but she has no history of trauma recently. Pain is moderate to severe. It is aching. Past Medical History - Allergies and Home Meds Allergies/Adverse Reactions: Allergies adhesive tape Allergy (Verified 11/08/18 13:29) BLISTERS/SCARS codeine Allergy (Verified 11/08/18 13:29) Shortness of breath Sulfa (Sulfonamide Antibiotics) Allergy (Verified 11/08/18 13:29) Rash Tetanus Vaccines and Toxoid [Tetanus Vaccines & Toxoid] Allergy (Verified 11/08/18 13:29) Swelling meperidine HCl [From Demerol] Adverse Reaction (Verified 11/08/18 13:29) Itching STERISTRIPS Allergy (Uncoded 11/08/18 13:29) BLISTERS/SCARS Primary Care Physician: Diana Martinez DO [Primary Care Provider] - Prior records reviewed: Yes Past Medical History: - Surgical History: cholecystectomy, gastric bypass, hysterectomy, - - Cyst removed from ovary. Smoking Status: Never smoker Review of Systems All systems negative except as indicated General: Denies: Fever Eyes: Denies: Visual changes - bilaterally Cardiovascular: Denies: Chest pain Respiratory: Denies: Dyspnea Musculoskeletal: Reports: - - Shoulder pain is in HPI Neurological: Denies: Weakness Psych: Denies: Anxiety Endocrine: Denies: Polydipsia Hematologic: Denies: Easy bruising Physical Exam Vital Signs/Narrative: Vital Signs Temp Pulse Resp BP Pulse Ox 11/08/18 13:29 97.8 F 106 H 16 183/95 H 99 Neck: Supple, Nontender Cardiovascular: Regular rate Respiratory: No distress Back: Nontender Extremities: - - Left shoulder has tenderness but no obvious deformity. Neurovascularly intact. There is a splint. When I removed the splint there is no erythema or calor or any signs of infection. Skin: Normal color Neurological: Normal Sensation. Negative for: Weakness Diagnostic/Tx/Re-eval - Medical Decision Making X-rays negative. Patient was reassured I will discharge with analgesia she has analgesia at home I gave analgesia in the ED ED Disposition - Plan for ED Patient: Disposition: Home or Assisted Living Diagnosis: Shoulder pain, acute Instructions: SHOULDER PAIN (Uncertain Cause) Referrals: Eduardo Sorto MD [STAFF PHYSICIAN] -
[2018-11-08] MEDS: oxyCODONE 5 MG Tablet 10 MG PO (16:19)
[2018-11-08 16:25] VITALS: BP 170/89; PULSE 87; RESP 16; O2SAT 97
== END 2018-11-08 16:26 | disposition home or self-care (01) ==
PROVIDERS: Emergency Provider Emergency Medicine; Family Provider Internal Medicine; PCP Internal Medicine
DX: M25.512 Pain in left shoulder (principal); G89.29 Other chronic pain
CPT/HCPCS: 73030; 99283

== ENCOUNTER → 2018-11-25 09:48 | Outpatient (CLI) | payer SELFPAY ==
[2018-11-17 13:39] VITALS: BMI 51.5
--- NOTE | 2018-11-25 09:49 | VDUE_ITS ---
Reason For Study: Chronic DVT Right Proximal Right jugular vein is spontaneous, widely patent, phasic, with no intraluminal echogenicity noted. Right subclavian vein is spontaneous, widely patent, phasic, with no intraluminal echogenicity noted. Right Lower Arm Right radial vein is compressible. Right ulnar vein is compressible. Right Arm Right axillary vein is spontaneous, patent, phasic, competent, compressible and demonstrates augmentation. Right brachial vein is compressible. Right cephalic vein is compressible. Right basilic vein is compressible. Patient Safety Compared to study on 08/23/18. Prelim to [facility]. Interpretation Summary No evidence for acute deep venous thrombosis[right] upper extremity with patent and compressible cephalic and basilic veins. Findings suggest resolution of deep venous thrombosis of the right axillary vein noted 08/23/18. Ordering Physician: Jeremy Chahal Referring Physician: Diana Martinez M.D. Performed By: Emily Virgen RVT ?
== END ==
PROVIDERS: Family Provider Internal Medicine; PCP Internal Medicine; Referring Provider Internal Medicine Medical Oncology; Visit Provider Internal Medicine Medical Oncology
DX: I82.A11 Acute embolism and thrombosis of right axillary vein (principal); I82.B11 Acute embolism and thrombosis of right subclavian vein
CPT/HCPCS: 93971

== ENCOUNTER → 2019-03-03 09:58 | Outpatient (CLI) | payer SELFPAY ==
[2019-02-18 13:55] VITALS: BMI 52.7
[2019-03-03 11:19] LABS: AST(SGOT) 58 U/L (15-37); Alanine Aminotransfer ALT/SGPT 50 U/L (13-56); Albumin, Serum 3.3 g/dL (3.2-5.0); Alkaline Phosphatase 128 U/L (45-117); Bilirubin, Direct 0.25 mg/dL (0.00-0.30); Cholesterol 161 mg/dL (200); Globulin 4.2 g/dL (2.2-4.2); High Density Lipoprotein 30 mg/dL; Protein, Total 7.5 g/dL (6.4-8.2); Triglycerides 126 mg/dL; Very Low Density Lipoprotein 25 mg/dL (5-40)
== END ==
PROVIDERS: Family Provider Internal Medicine; PCP Internal Medicine; Referring Provider Internal Medicine Cardiovascular Disease; Visit Provider Internal Medicine Cardiovascular Disease
DX: E78.00 Pure hypercholesterolemia, unspecified (principal)
CPT/HCPCS: 36415; 80061; 80076

== ENCOUNTER 2020-04-13 14:56 | Inpatient (IN) | payer MEDICARE, SELFPAY ==
[2019-08-22 08:45] VITALS: BMI 52.5
[2020-04-13 14:56] VITALS: BP 119/67; PULSE 80; RESP 18; TEMP 36.2; O2SAT 93; BMI 42.7
--- NOTE | 2020-04-13 15:21 | RAD_ITS ---
STUDY: X-RAY CHEST REASON FOR EXAM: Female, 64 years old. COVID, weakness, syncopal episode, nausea. TECHNIQUE: Frontal view of the chest COMPARISON: 15 February 2016 FINDINGS: There is multifocal mid to lower lung zone pneumonia. There is no pneumothorax, pulmonary edema, cardiomegaly or pleural effusions. There is left reverse total shoulder arthroplasty. RAD/Chest 1 View (Portable) IMPRESSION: Multifocal pneumonia. Electronically Signed: Allan Aviles, at 15:47 EST Tel , Service support ,
--- NOTE | 2020-04-13 15:22 | EKG12_ITS ---
Test Reason : WEAKNESS Blood Pressure : / mmHG Vent. Rate : 068 BPM Atrial Rate : 068 BPM P-R Int : 168 ms QRS Dur : 070 ms QT Int : 420 ms P-R-T Axes : 061 009 053 degrees QTc Int : 446 ms Normal sinus rhythm Normal ECG Confirmed by DERIC BOOKER, RYLEY ([id number]), digital editor DAREK WARNER ([id number]) on 04/18/2020 9:20:14 AM Referred By: ANICETO Confirmed By:RYLEY LEOS MD
--- NOTE | 2020-04-13 15:23 | ED.VIS.GEN ---
History of Present Illness Chief Complaint: Weakness Informant: Patient Onset: Yesterday Current Severity: Moderate Maximum Severity: Moderate Narrative: Patient presents secondary to generalized weakness. She was diagnosed with Covid on 02 April. She had symptoms for 4 days at that time. Patient states she has had poor appetite and loss of taste. She has mild shortness of breath with mild cough. She does report decreased p.o. intake and decreased urination. Yesterday while walking down the [place] after using the restroom she did syncopal episode. She states remembers feeling lightheaded and got tunnel vision. She has some abrasions on each arm from her fall. She denies palpitations or chest pain prior to her syncopal episode. She states today she feels very shaky and cannot walk by herself. - Past Medical History (1) Diabetes mellitus, type II Status: Chronic (2) Hypothyroidism Status: Chronic (3) Obstructive sleep apnea Status: Chronic Comment: Wears CPAP (4) DVT of upper extremity (deep vein thrombosis) Status: Resolved Past Medical History - Allergies and Home Meds Allergies/Adverse Reactions: Allergies adhesive tape Allergy (Verified 04/13/20 15:00) BLISTERS/SCARS codeine Allergy (Verified 04/13/20 15:00) Shortness of breath Sulfa (Sulfonamide Antibiotics) Allergy (Verified 04/13/20 15:00) Rash Tetanus Vaccines and Toxoid [Tetanus Vaccines & Toxoid] Allergy (Verified 04/13/20 15:00) Swelling meperidine HCl [From Demerol] Adverse Reaction (Verified 04/13/20 15:00) Itching STERISTRIPS Allergy (Uncoded 04/13/20 15:00) BLISTERS/SCARS Primary Care Physician: Diana Martinez DO [Primary Care Provider] - Prior records reviewed: Yes Surgical History: cholecystectomy, gastric bypass, hysterectomy, - - Cyst removed from ovary. Smoking Status: Never smoker Review of Systems General: Reports: Fever - Last fever measured on April 10. Denies: Chills Eyes: Denies: Visual changes - bilaterally ENT: Reports: Sore throat, - - Decreased taste Cardiovascular: Denies: Chest pain Respiratory: Reports: Dyspnea, Cough. Denies: Sputum Gastrointestinal: Denies: Abdominal pain, Nausea, Vomiting, Diarrhea Genitourinary: Denies: Dysuria Musculoskeletal: Reports: Myalgias Skin: Denies: Rash Hematologic: Denies: Easy bruising, Easy bleeding Allergy: Denies: Uticaria Physical Exam Vital Signs/Narrative: Vital Signs Temp Pulse Resp BP Pulse Ox 04/13/20 14:56 97.1 F L 80 18 119/67 93 Inital Vital Signs reviewed: Yes General: Well nourished, Well developed Head: Normocephalic Neck: Supple Cardiovascular: Regular rate, Regular rhythm Respiratory: No distress, CTA bilaterally Abdomen: Soft, Nontender, Normal bowel sounds Extremities: Nontender Skin: Normal color, No rash Neurological: Alert, Oriented x3 Psychological: Normal affect Diagnostic/Tx/Re-eval Chest X-Ray - ED: 1 View, Read by ED Physician, Right Infiltrate, Left Infiltrate Impressions Chest X-Ray 04/13/20 15:21 IMPRESSION: Multifocal pneumonia. Electronically Signed: Allan Aviles, at 15:47 EST Tel , Service support , Chest CTA 04/13/20 17:08 IMPRESSION: 1. No pulmonary embolism 2. Bilateral extensive bilateral pneumonia. Electronically Signed: Allan Aviles, at 17:55 EST Tel , Service support , 04/13/20 15:21 Chest 1 View (Portable) [RAD] Stat 04/13/20 17:08 CTA Chest W/WO Contrast [CT] Stat Laboratory Results 04/13/20 04/13/20 04/13/20 15:57 15:57 15:57 WBC 4.4 RBC 4.45 Hgb 12.4 Hct 38.5 MCV 86.5 MCH 27.9 MCHC 32.2 RDW Std Deviation 49.2 H RDW Coeff of Krista 15.5 H Plt Count 192 MPV 9.5 Immature Gran % (Auto) 0.500 Neut % (Auto) 67.5 Lymph % (Auto) 23.0 [place] % (Auto) 7.7 Eos % (Auto) 1.1 Baso % (Auto) 0.2 Absolute Neuts (auto) 3.0 Absolute Lymphs (auto) 1.02 Nucleated RBC % 0 Reactive Lymphocytes 1+ D-Dimer Quant (PE/DVT) 1.34 H* Sodium 141 Potassium 3.8 Chloride 110 H Carbon Dioxide 26.0 Anion Gap 5 BUN 17 Creatinine 0.91 Estim Creat Clear Calc 55.35 Est GFR (MDRD) Af Amer 81 Est GFR (MDRD) Non-Af 67 BUN/Creatinine Ratio 18.7 Glucose 117 H Lactic Acid Calcium 8.1 L Total Bilirubin 0.60 Direct Bilirubin 0.32 H AST 41 H ALT 32 Alkaline Phosphatase 122 H Troponin I < 0.015 Total Protein 6.4 Albumin 2.5 L Globulin 3.9 Urine Color Urine Clarity Urine pH Ur Specific [place] Urine Protein Urine Glucose (UA) Urine Ketones Urine Occult Blood Urine Nitrite Urine Bilirubin Urine Urobilinogen Ur Leukocyte Esterase Urine RBC Urine WBC Ur Squamous Epith Cells Urine Bacteria Urine Mucus Urine Yeast 04/13/20 04/13/20 15:57 18:00 WBC RBC Hgb Hct MCV MCH MCHC RDW Std Deviation RDW Coeff of Krista Plt Count MPV Immature Gran % (Auto) Neut % (Auto) Lymph % (Auto) [place] % (Auto) Eos % (Auto) Baso % (Auto) Absolute Neuts (auto) Absolute Lymphs (auto) Nucleated RBC % Reactive Lymphocytes D-Dimer Quant (PE/DVT) Sodium Potassium Chloride Carbon Dioxide Anion Gap BUN Creatinine Estim Creat Clear Calc Est GFR (MDRD) Af Amer Est GFR (MDRD) Non-Af BUN/Creatinine Ratio Glucose Lactic Acid 2.4 H* Calcium Total Bilirubin Direct Bilirubin AST ALT Alkaline Phosphatase Troponin I Total Protein Albumin Globulin Urine Color Yellow Urine Clarity Sl. Cloudy Urine pH 5.0 Ur Specific [place] 1.010 Urine Protein 30 H Urine Glucose (UA) Normal Urine Ketones Negative Urine Occult Blood Negative Urine Nitrite Negative Urine Bilirubin 1 H Urine Urobilinogen 8 H Ur Leukocyte Esterase 500 H Urine RBC 0 SEEN Urine WBC 0-5 SEEN Ur Squamous Epith Cells 0-5 SEEN Urine Bacteria 0 SEEN Urine Mucus 1+ Urine Yeast RARE - EKG Initial EKG Interpretation: Sinus Rhythm - Sinus at 68 with no acute ischemia. - Medical Decision Making Patient was given a 500 cc IV fluid bolus. Upon completion of her x-ray with bilateral infiltrates she was given a dose of Rocephin and Zithromax. She does report testing positive for Covid on the . D-dimer is elevated. CTA confirms bilateral infiltrates but no evidence of PE. Nursing staff did note that when they got the patient up to bedside commode she did desaturate on 2 L nasal cannula. She was turned up to 5 L for short time for recovery and is currently resting in bed on 2 L and satting in the mid 90s. Patient be discussed with the hospitalist for admission. ED Disposition - Plan for ED Patient: Disposition: [facility] Care [facility] Diagnosis: Pneumonia due to COVID-19 virus Referrals: Diana Martinez DO [Primary Care Provider] -
[2020-04-13 16:08] LABS: Absolute Lymphocyte Count 1.02 X10^3/uL (0.83-4.51); Basophil# 0.01 X10^3/uL; Basophil% 0.2 % (0-1); Eosinophil# 0.05 X10^3/uL; Eosinophils% 1.1 % (0-5); Hematocrit 38.5 % (37-47); Hemoglobin 12.4 g/dL (12.0-15.0); Lymphocyte # 1.02 X10^3/ul (4.0); Mean Corp Hgb Conc 32.2 g/dL (32-36); Mean Corpuscular Hgb 27.9 pg (27.0-32.0); Mean Corpuscular Volume 86.5 fL (81-99); Mean Platelet Vol. 9.5 fl (6.2-12.0); Monocyte# 0.34 X10^3/uL; Monocyte% 7.7 % (0-10); NRBC Flagged by Analyzer 0 % (0-5); Neutrophil % 67.5 % (47-70); POSITIVE MORPHOLOGY YES; Platelet Count 192 K/mm3 (150-450); RBC Distribution Width CV 15.5 % (11.6-14.6); RBC Distribution Width SD 49.2 fl (35.1-43.9); Red Blood Count 4.45 M/mm3 (4.2-5.4); White Blood Count 4.4 K/mm3 (4.4-11.0)
[2020-04-13 16:16] LABS: Differential Indicated SCAN CRITERIA MET
[2020-04-13] MEDS: Ceftriaxone 1 GM/50 ML BAG IV (16:38)
[2020-04-13 16:40] LABS: AST(SGOT) 41 U/L (15-37); Alanine Aminotransfer ALT/SGPT 32 U/L (13-56); Albumin, Serum 2.5 g/dL (3.2-5.0); Alkaline Phosphatase 122 U/L (45-117); Anion Gap 5 (5-15); BUN 17 mg/dL (7-18); BUN/Creat Ratio 18.7 RATIO (10-20); Bilirubin, Direct 0.32 mg/dL (0.00-0.30); Calcium,Total 8.1 mg/dL (8.5-10.1); Chloride 110 mmol/L (98-107); Creatinine, Serum 0.91 mg/dL (0.55-1.02); EST Glomerular Filtration Rate 67 mL/min (>60); Est Glom Filt Rate - Afr Amer 81 mL/min (>60); Estimated Creatinine Clearance 55.35 ml/min; Globulin 3.9 g/dL (2.2-4.2); Glucose 117 mg/dL (74-106); Potassium 3.8 mmol/L (3.5-5.1); Protein, Total 6.4 g/dL (6.4-8.2); Sodium Level 141 mmol/L (136-145)
[2020-04-13 16:42] VITALS: BP 117/59; PULSE 66; PULSE 68; RESP 18; RESP 21; TEMP 36.2; TEMP 36.8; O2SAT 97
[2020-04-13 16:44] LABS: Lactic Acid 2.4 mmol/L (0.4-1.9)
[2020-04-13 17:07] LABS: D-Dimer Quantitative (DVT/PE) 1.34 FEU/ug/m (0.27-0.49)
--- NOTE | 2020-04-13 17:08 | CT_ITS ---
STUDY: CTA CHEST REASON FOR EXAM: Female, 64 years old. Shortness of breath viral infection RADIATION DOSAGE (If Supplied By Facility): CTDIvol = ( 13.85 ) mGy, DLP = ( 490.68 ) mGycm TECHNIQUE: The examination was performed with the intravenous administration of IV 100mL Isovue-370. Post-processing of the angiographic images was performed, with multiplanar reformation and 3D reconstruction. Individualized dose optimization techniques were used for this CT. COMPARISON: 15 February 2016 FINDINGS: There is no acute or chronic pulmonary embolism. Aorta is of normal caliber. There are multiple irregularly-shaped basal predominant dense groundglass opacities.. There is no pneumothorax, pulmonary edema or pleural effusions. Mediastinal contents are normal with expected reactive mediastinal lymph nodes. Coronary arteries are mildly diseased.. Osseous structures are intact. Abdominal structures are unremarkable. CT/CTA Chest W/WO Contrast IMPRESSION: 1. No pulmonary embolism 2. Bilateral extensive bilateral pneumonia. Electronically Signed: Allan Aviles, at 17:55 EST Tel , Service support ,
[2020-04-13 17:47] LABS: Reactive Lymphocyte 1+
[2020-04-13 18:00] VITALS: BP 127/66; PULSE 68; RESP 18; O2SAT 99
--- NOTE | 2020-04-13 18:02 | ED.RN ---
pt up to [facility] and got very dyspneic. spo2 87% on 2l. o2 up to 5l and pt recovered to 95%. once recovered dionne o2 back down at 2l. dr.r coleman aware
[2020-04-13 18:04] LABS: Bacteria 0 SEEN /hpf (None Seen); Red Blood Cells-Urine 0 SEEN /hpf (0-5)
[2020-04-13 18:07] LABS: Color, Urine Yellow (Yellow); Glucose, Dipstick Normal (Normal); Ketone-Dipstick Negative (Negative); Leukocyte Esterase-Dipstick 500 /ul (Negative); Nitrite-Dipstick Negative (Negative); Occult Blood-Urine Negative /ul (Negative); Protein-Dipstick 30 mg/dl (Negative); Urine Bilirubin Dipstick 1 mg/dL (Negative); Urine Clarity Sl. Cloudy (Clear); Urine Urobilinogen 8 mg/dl (Normal)
[2020-04-13 18:16] LABS: Mucous, Urine 1+ /hpf (<or=2+); Squamous Epithelial Cells - UA 0-5 SEEN /hpf (5-10); White Blood Cells 0-5 SEEN /hpf (0-5); Yeast-Urine RARE /hpf (None Seen)
--- NOTE | 2020-04-13 18:30 | PCM.HP.STD ---
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 Patient has been having low-grade fevers, cough, progressive shortness of breath. The symptoms have been worse over the last 4 days. She has loss of smell and taste and poor appetite because her throat hurts. She had a syncopal episode today to using the bathroom. She was unconscious for a short time. She sustained some abrasions on her bilateral upper extremities. She denies chest pain or palpitations prior to her syncopal episode. At the time of being seen, patient denied any new complaints. She feels improved with the start of oxygen. Vitals in the ED showed temperature of 97.1F, heart rate 80, blood pressure 119/67, respiratory rate is 18, SPO2 is 93% on room air. BC count 4.4, hemoglobin 12.4, platelet count 192, D-dimer 1.34, BMP is unremarkable, lactic acid is 2.4, direct bilirubin is 0.32, AST is 41, ALT 32, ALP is 122. Admitting chest x-ray shows multifocal pneumonia. CTA chest was negative for acute PE but showed bilateral extensive pneumonia. Past Medical History Past Medical History (Chronic Problems): Chronic Problems (Last Reviewed 08/22/19 @ 08:44 by Sheila Dozier) Obstructive sleep apnea (Chronic) Wears CPAP Hypothyroidism (Chronic) Diabetes mellitus, type II (Chronic) Abnormal EKG (Chronic) Postop ekg changes along with elevated troponin 03/11/18 Medical History: Medical History (Last Reviewed 08/22/19 @ 08:44 by Sheila Dozier) Preop cardiovascular exam (Acute) Z01.810 Obstructive sleep apnea (Chronic) G47.33 Wears CPAP Hypothyroidism (Chronic) E03.9 Diabetes mellitus, type II (Chronic) E11.9 Abnormal EKG (Chronic) R94.31 Postop ekg changes along with elevated troponin 03/11/18 Staph infection B95.8 left shoulder after total reversal Dr Sorto Allergies adhesive tape Allergy (Verified 04/13/20 15:00) BLISTERS/SCARS codeine Allergy (Verified 04/13/20 15:00) Shortness of breath Sulfa (Sulfonamide Antibiotics) Allergy (Verified 04/13/20 15:00) Rash Tetanus Vaccines and Toxoid [Tetanus Vaccines & Toxoid] Allergy (Verified 04/13/20 15:00) Swelling meperidine HCl [From Demerol] Adverse Reaction (Verified 04/13/20 15:00) Itching STERISTRIPS Allergy (Uncoded 04/13/20 15:00) BLISTERS/SCARS Home Medications: Ambulatory Orders Medication Instructions Recorded Fluoxetine [Prozac] 20 mg PO BID 06/05/14 Metformin HCl [Metformin ER 1,000 mg PO BID 06/28/18 Osmotic] Famotidine [Pepcid] 20 mg PO DAILY #30 tab 10/08/18 Bupropion HCl [Wellbutrin Xl] 150 mg PO DAILY 11/08/18 Levothyroxine Sodium [Synthroid] 150 mcg PO DAILY 04/13/20 Surgical History: Surgical History (Last Reviewed 08/22/19 @ 08:44 by Sheila Dozier) 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 History of hemiarthroplasty of left shoulder Onset Date: 03/12/18 Z96.612 ORIF left humeral head and neck per Dr. Perry Sorto Humeral head fracture S42.293A Multiple shoulder surgeries related to fracture infection History of cholecystectomy Z90.49 History of gastric bypass Z98.84 History of hysterectomy Z90.710 History of tonsillectomy Z90.89 History of umbilical hernia repair Z98.890, Z87.19 Surgical History: cholecystectomy, gastric bypass, hysterectomy, - - Cyst removed from ovary. 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 Denies: Chills, Fever, Weight Change Eyes: Denies: Blurred vision, Cataracts, Conjunctivae Inflammation, Pain, Redness, Vision Change HEENT: Denies: Difficulty Hearing, Difficulty Swallowing, Head Aches, Hearing Changes, Sinus Congestion, Sinus Drainage Cardiovascular: Reports: Light Headedness, Syncope. Denies: Chest Pain, Claudication, Orthopnea, Palpitations, Paroxysmal Noc. Dyspnea Respiratory: Reports: Cough, Shortness of Breath, Shortness of breath at rest, Shortness of breath upon exertion. Denies: Hemoptysis, Sputum production Gastrointestinal: Denies: Abdominal Pain, Constipation, Hematemesis, Hematochezia, Nausea, Vomiting Genitourinary: Denies: Dysuria, Incontinence Musculoskeletal: Denies: Joint Pain, Joint stiffness, Joint swelling, Joint Tenderness Skin: Denies: Rash, Wounds Neurological: Denies: Numbness, Tingling, Focal weakness Psychiatric: Denies: Anxiety, Depression, Homicidal Ideations, Suicidal Ideations Hematologic/ Lymphatic: Denies: Easy Bruising, Easy Bleeding VTE Information - Inpt Only VTE Present on Admission: No VTE Pharm Prophylaxis ordered?: Yes Patient Problems: Active and Suspected Problems (Last Reviewed 08/22/19 @ 08:44 by Sheila Dozier) Pneumonia due to COVID-19 virus (Acute) COVID-19 virus infection (Acute) - Physical Exam Vitals/I&O's: Vital Signs Temp Pulse Resp BP Pulse Ox 98.3 F 68 21 H 117/59 L 97 04/13/20 16:42 04/13/20 16:42 04/13/20 16:42 04/13/20 16:42 04/13/20 16:42 Oxygen Flow Rate (L/min) 2 Oxygen Delivery Method Nasal Cannula Weight: 112.945 kg Body Mass Index (BMI) 42.7 Finger Stick Blood Glucose 201 Intake and Output for Last 24 Hours 04/11/20 04/12/20 04/13/20 23:59 23:59 23:59 Intake Total 550 / 550 Balance 550 / 550 General: Alert, Oriented x3, Cooperative, No apparent distress, - - 2 L of oxygen HEENT: Atraumatic, PERRLA, EOMI, Normocephalic Oral: Dry Mucosa Neck: Supple Lungs: Diminished Cardiovascular: Regular rate, Regular Rhythm, Normal S1, Normal S2, No murmurs Abdomen: Bowel Sounds Present, Soft, Non Tender, Non-Distended, No Hepato-splenomegaly Extremities: No edema Skin: No rashes Musculoskeletal: No Tenderness to Palpation of Joints or Extremities Lymphatic: No Cervical, Supraclavicular, or Inguinal Adenopathy Neurological: Cranial nerves II-XII grossly intact, Neuro grossly intact Psych/Mental Status: Normal Affect, Appropriate Laboratory Results 04/13/20 15:57: WBC 4.4, RBC 4.45, Hgb 12.4, Hct 38.5, MCV 86.5, MCH 27.9, MCHC 32.2, RDW Std Deviation 49.2 H, RDW Coeff of Krista 15.5 H, Plt Count 192, MPV 9.5, Immature Gran % (Auto) 0.500, Neut % (Auto) 67.5, Lymph % (Auto) 23.0, [place] % (Auto) 7.7, Eos % (Auto) 1.1, Baso % (Auto) 0.2, Absolute Neuts (auto) 3.0, Absolute Lymphs (auto) 1.02, Nucleated RBC % 0, Reactive Lymphocytes 1+ 04/13/20 15:57: D-Dimer Quant (PE/DVT) 1.34 H* 04/13/20 15:57: Sodium 141, Potassium 3.8, Chloride 110 H, Carbon Dioxide 26.0, Anion Gap 5, BUN 17, Creatinine 0.91, Estim Creat Clear Calc 55.35, Est GFR (MDRD) Af Amer 81, Est GFR (MDRD) Non-Af 67, BUN/Creatinine Ratio 18.7, Glucose 117 H, Calcium 8.1 L, Total Bilirubin 0.60, Direct Bilirubin 0.32 H, AST 41 H, ALT 32, Alkaline Phosphatase 122 H, Troponin I < 0.015, Total Protein 6.4, Albumin 2.5 L, Globulin 3.9 04/13/20 15:57: Lactic Acid 2.4 H* 04/13/20 18:00: Urine Color Yellow, Urine Clarity Sl. Cloudy, Urine pH 5.0, Ur Specific [place] 1.010, Urine Protein 30 H, Urine Glucose (UA) Normal, Urine Ketones Negative, Urine Occult Blood Negative, Urine Nitrite Negative, Urine Bilirubin 1 H, Urine Urobilinogen 8 H, Ur Leukocyte Esterase 500 H, Urine RBC 0 SEEN, Urine WBC 0-5 SEEN, Ur Squamous Epith Cells 0-5 SEEN, Urine Bacteria 0 SEEN, Urine Mucus 1+, Urine Yeast RARE Assessment/Plan All Active Problems (Last Reviewed 08/22/19 @ 08:44 by Sheila Dozier) Infection of prosthetic shoulder joint (Acute) DVT of upper extremity (deep vein thrombosis) (Resolved) Pneumonia due to COVID-19 virus (Acute) COVID-19 virus infection (Acute) Preop cardiovascular exam (Acute) 1. Syncope related to dehydration from acute COVID-19 Patient's admitting EKG showed no acute ST changes Initial troponin is negative We will continue on IV fluids, recheck orthostatic vitals in a.m. 2. Acute COVID-19 pneumonia with hypoxia Patient is on 2 L of oxygen Continue with breathing treatments, po steroids, encourage use of incentive spirometer. Wean off oxygen for SPO2 more than 94% We will continue on oral dexamethasone. Would hold off on starting remdesivir on account of slight elevation in liver enzymes. Repeat liver enzymes in a.m., if improved, consider resumption 3. Lactic acidosis secondary to hypoxia, admitting lactic acid level is 2.4 We will trend lactic acid 4. Type II DM, on Metformin, would hold Metformin Continue blood glucose checks with insulin sliding scale 5. Hypothyroidism, continue on Synthroid 6. Elevated D-dimer, history of bilateral upper extremity DVTs She denies any swelling in any of extremities We will put on prophylactic Lovenox 7. LUIS on CPAP 8. 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 DVT prophylaxis with Lovenox subcu BID Inpatient E&M: 50140 Init Hosp L3
[2020-04-13] MEDS: dexAMETHasone 10 MG/ML Vial 6 MG IV (18:56)
[2020-04-13 18:59] VITALS: BP 127/66; PULSE 68; RESP 20; TEMP 36.8; O2SAT 99
[2020-04-13 20:04] LABS: Reflex Lactate? Y
[2020-04-13 21:13] VITALS: BP 131/77; PULSE 64; RESP 17; TEMP 36.6; O2SAT 96
[2020-04-13 21:16] VITALS: BMI 42.8
[2020-04-13 21:23] LABS: Lactic Acid 1.7 mmol/L (0.4-1.9)
[2020-04-13 21:27] LABS: BNP,B-Type NATRIURETIC PEPTIDE 93.4 pg/mL (0-100)
[2020-04-13 21:28] VITALS: BMI 42.8
[2020-04-13] MEDS: 0.9% Saline Lock 10 ML Syringe IV (21:43)
[2020-04-13] MEDS: 0.9% Normal Saline 1,000 ML 100 ML IV (21:44)
[2020-04-13] MEDS: FLUoxetine 20 MG Capsule PO (21:47)
[2020-04-13] MEDS: Enoxaparin 40 MG/0.4 ML Syringe SC (21:47)
[2020-04-13 22:06] LABS: Bedside Glucose 128 mg/dL (70-110)
[2020-04-13 23:40] VITALS: O2SAT 96
--- NOTE | 2020-04-13 23:40 | CPS ---
set up pt's home CPAP with 2 lpm O2 bleed in
[2020-04-14] VITALS (8 sets, daily range): BP systolic 109–154; BP diastolic 60–89; PULSE 62–93; RESP 16–17; TEMP 36.4–37; O2SAT 67–97
[2020-04-14] MEDS: Insulin Lispro 100 UNIT/ML INSULN.PEN SC ×3 (07:03→16:14)
[2020-04-14] MEDS: 0.9% Normal Saline 1,000 ML 100 ML IV (07:05)
[2020-04-14 07:15] LABS: Bedside Glucose 152 mg/dL (70-110)
[2020-04-14 07:24] LABS: ALB/GLOB Ratio 0.6 RATIO (0.9-2.4); AST(SGOT) 28 U/L (15-37); Alanine Aminotransfer ALT/SGPT 26 U/L (13-56); Albumin, Serum 2.4 g/dL (3.2-5.0); Alkaline Phosphatase 115 U/L (45-117); Anion Gap 2 (5-15); BUN 15 mg/dL (7-18); BUN/Creat Ratio 19.4 RATIO (10-20); Chloride 113 mmol/L (98-107); Creatinine, Serum 0.77 mg/dL (0.55-1.02); EST Glomerular Filtration Rate 80 mL/min (>60); Est Glom Filt Rate - Afr Amer 97 mL/min (>60); Estimated Creatinine Clearance 65.42 ml/min; Glucose 142 mg/dL (74-106); Potassium 4.9 mmol/L (3.5-5.1); Protein, Total 6.4 g/dL (6.4-8.2); Sodium Level 142 mmol/L (136-145)
[2020-04-14 07:32] LABS: Absolute Lymphocyte Count 0.62 X10^3/uL (0.83-4.51); Absolute Neutrophil Count 2.3 X10^3/uL (2.0-7.7); Basophil# 0.01 X10^3/uL; Basophil% 0.3 % (0-1); Hematocrit 36.6 % (37-47); Hemoglobin 11.6 g/dL (12.0-15.0); Lymphocyte # 0.62 X10^3/ul (4.0); Lymphocyte % 19.8 % (19-41); Mean Corp Hgb Conc 31.7 g/dL (32-36); Mean Corpuscular Hgb 27.6 pg (27.0-32.0); Mean Corpuscular Volume 87.1 fL (81-99); Mean Platelet Vol. 9.7 fl (6.2-12.0); Monocyte# 0.21 X10^3/uL; Monocyte% 6.7 % (0-10); NRBC Flagged by Analyzer 0 % (0-5); Neutrophil # 2.27 X10^3/uL (2.7-7.7); Neutrophil % 72.6 % (47-70); POSITIVE MORPHOLOGY YES; Platelet Count 192 K/mm3 (150-450); RBC Distribution Width CV 15.4 % (11.6-14.6); RBC Distribution Width SD 49.4 fl (35.1-43.9); White Blood Count 3.1 K/mm3 (4.4-11.0)
[2020-04-14 07:38] LABS: Differential Indicated SCAN CRITERIA MET
[2020-04-14] MEDS: Famotidine 20 MG Tablet PO (08:12)
[2020-04-14] MEDS: FLUoxetine 20 MG Capsule PO ×2 (08:12→20:24)
[2020-04-14] MEDS: dexAMETHasone 2 MG TABLET 6 MG PO (08:12)
[2020-04-14] MEDS: Levothyroxine 150 MCG Tablet PO (08:12)
[2020-04-14] MEDS: Enoxaparin 40 MG/0.4 ML Syringe SC ×2 (08:13→20:24)
[2020-04-14] MEDS: buPROPion (XL) 150 MG TABLET.XL PO (08:13)
[2020-04-14 09:49] LABS: Differential Comment SCANNED; Reactive Lymphocyte 1+
--- NOTE | 2020-04-14 09:59 | PN_ITS ---
Patient Problems: Active and Suspected Problems (Last Reviewed 08/22/19 @ 08:44 by Sheila Dozier) Pneumonia due to COVID-19 virus (Acute) COVID-19 virus infection (Acute) Subjective: Chief complaint: Follow-up after admission for acute bilateral COVID-19 pneumonia and acute hypoxic respiratory insufficiency. Patient seen and examined. No acute events overnight. She still complaining of significant shortness of breath especially upon ambulation associated with weakness. She still having some cough, no sputum production. Denied fever or chills. She is afebrile, blood pressure and heart rate are stable, she is on 2 L. - Physical Exam Vitals/I&O's: Vital Signs Temp Pulse Resp BP Pulse Ox 98.6 F 68 16 144/89 H 90 04/14/20 08:01 04/14/20 08:11 04/14/20 08:01 04/14/20 08:11 04/14/20 08:10 Oxygen Flow Rate (L/min) [ 2 AMBULATION with Oxygen] Oxygen Flow Rate (L/min) 2 Oxygen Delivery Method Nasal Cannula Weight: 249 lb 1.6 oz Body Mass Index (BMI) 42.8 Finger Stick Blood Glucose 201 Orthostatic Vital Signs Start: 04/14/20 08:11 Freq: q24h Status: Active Protocol: Activity Type Activity Date Activity User E-Sign Co-Sign Detail Recorded Client Recorded Date Recorded By Document 04/14/20 08:11 TDW [id number] 04/14/20 08:12 TDW 04/14/20 08:11 Orthostatic Vitals Standing -Blood Pressure (90/60-120/80) 111/60 -Extremity Use Right Arm -Pulse Rate (60-100) 93 Sitting -Blood Pressure (90/60-120/80) 109/68 -Extremity Use Right Arm -Pulse Rate (60-100) 79 Lying -Blood Pressure (90/60-120/80) 144/89 H -Extremity Use Right Arm -Pulse Rate (60-100) 68 Intake and Output for Last 24 Hours 04/12/20 04/13/20 04/14/20 23:59 23:59 23:59 Intake Total 805 / 1055 1635 / 1635 Balance 805 / 1055 1635 / 1635 General: Alert, Oriented x3, Cooperative, - - Mildly short of breath. HEENT: Atraumatic, PERRLA, EOMI, Normocephalic Oral: Moist Mucosa, No Gingival or Mucosal Lesions/ Ulcerations Neck: Supple, No JVD, Negative Carotid Bruits, Trachea Midline, Thyroid Normal Size and Texture Lungs: Clear to auscultation, No rhonchi, No wheeze, No rales, Diminished, Short of Breath, - - Decreased breath sounds bilateral. Cardiovascular: Regular rate, Regular Rhythm, Normal S1, Normal S2, PMI Normal Abdomen: Soft, Non Tender, Non-Distended, No Hepato-splenomegaly Extremities: No clubbing, No cyanosis, No edema Skin: No rashes, No breakdown Lymphatic: No Cervical, Supraclavicular, or Inguinal Adenopathy Neurological: Cranial nerves II-XII grossly intact, Neuro grossly intact Psych/Mental Status: Normal Affect, Appropriate, Alert and oriented to time, place, person, mood and affect Laboratory Results 04/13/20 15:57: WBC 4.4, RBC 4.45, Hgb 12.4, Hct 38.5, MCV 86.5, MCH 27.9, MCHC 32.2, RDW Std Deviation 49.2 H, RDW Coeff of Krista 15.5 H, Plt Count 192, MPV 9.5, Immature Gran % (Auto) 0.500, Neut % (Auto) 67.5, Lymph % (Auto) 23.0, Jefferson % (Auto) 7.7, Eos % (Auto) 1.1, Baso % (Auto) 0.2, Absolute Neuts (auto) 3.0, Absolute Lymphs (auto) 1.02, Nucleated RBC % 0, Reactive Lymphocytes 1+ 04/13/20 15:57: D-Dimer Quant (PE/DVT) 1.34 H* 04/13/20 15:57: Sodium 141, Potassium 3.8, Chloride 110 H, Carbon Dioxide 26.0, Anion Gap 5, BUN 17, Creatinine 0.91, Estim Creat Clear Calc 55.35, Est GFR (MDRD) Af Amer 81, Est GFR (MDRD) Non-Af 67, BUN/Creatinine Ratio 18.7, Glucose 117 H, Calcium 8.1 L, Total Bilirubin 0.60, Direct Bilirubin 0.32 H, AST 41 H, ALT 32, Alkaline Phosphatase 122 H, Troponin I < 0.015, Total Protein 6.4, Albumin 2.5 L, Globulin 3.9 04/13/20 15:57: Lactic Acid 2.4 H* 04/13/20 15:57: B-Natriuretic Peptide 93.4 04/13/20 18:00: Urine Color Yellow, Urine Clarity Sl. Cloudy, Urine pH 5.0, Ur Specific Zephyr 1.010, Urine Protein 30 H, Urine Glucose (UA) Normal, Urine Ketones Negative, Urine Occult Blood Negative, Urine Nitrite Negative, Urine Bilirubin 1 H, Urine Urobilinogen 8 H, Ur Leukocyte Esterase 500 H, Urine RBC 0 SEEN, Urine WBC 0-5 SEEN, Ur Squamous Epith Cells 0-5 SEEN, Urine Bacteria 0 SEEN, Urine Mucus 1+, Urine Yeast RARE 04/13/20 20:32: Lactic Acid 1.7 04/13/20 21:53: POC Glucose 128 H 04/14/20 06:35: WBC 3.1 L, RBC 4.20, Hgb 11.6 L, Hct 36.6 L, MCV 87.1, MCH 27.6, MCHC 31.7 L, RDW Std Deviation 49.4 H, RDW Coeff of Krista 15.4 H, Plt Count 192, MPV 9.7, Immature Gran % (Auto) 0.600, Neut % (Auto) 72.6 H, Lymph % (Auto) 19.8, Jefferson % (Auto) 6.7, Eos % (Auto) 0.0, Baso % (Auto) 0.3, Absolute Neuts (auto) 2.3, Absolute Lymphs (auto) 0.62 L, Nucleated RBC % 0, Differential Comment SCANNED, Reactive Lymphocytes 1+ 04/14/20 06:35: Sodium 142, Potassium 4.9, Chloride 113 H, Carbon Dioxide 27.0, Anion Gap 2 L, BUN 15, Creatinine 0.77, Estim Creat Clear Calc 65.42, Est GFR (MDRD) Af Amer 97, Est GFR (MDRD) Non-Af 80, BUN/Creatinine Ratio 19.4, Glucose 142 H, Calcium 8.0 L, Total Bilirubin 0.50, AST 28, ALT 26, Alkaline Phosphatase 115, Total Protein 6.4, Albumin 2.4 L, Globulin 4.0, Albumin/Globulin Ratio 0.6 L 04/14/20 07:02: POC Glucose 152 H Clinical Impression(s) from Imaging Studies Chest X-Ray 04/13/20 15:21 IMPRESSION: Multifocal pneumonia. Electronically Signed: Allan Aviles, at 15:47 EST Tel , Service support , Chest CTA 04/13/20 17:08 IMPRESSION: 1. No pulmonary embolism 2. Bilateral extensive bilateral pneumonia. Electronically Signed: Allan Aviles, at 17:55 EST Tel , Service support , Current Medications Acetaminophen (Acetaminophen 325 Mg Tablet) 650 mg PO Q6H PRN PRN PRN Reason: Pain Score 1-10/Temp > 100.7 F Bupropion HCl (Bupropion (Xl) 150 Mg Tablet.Xl) 150 mg PO DAILY [facility] Last Admin: 04/14/20 08:13 Dose: 150 mg Documented by: Dexamethasone (Dexamethasone 2 Mg Tablet) 6 mg PO DAILY [facility] Last Admin: 04/14/20 08:12 Dose: 6 mg Documented by: Dextrose (Dextrose 50%-Water 25 Gm/50 Ml Disp.Syrin) 0 gm IV X1 PRN; Protocol PRN Reason: Hypoglycemia Enoxaparin Sodium (Enoxaparin 40 Mg/0.4 Ml Syringe) 40 mg SC BID [facility] Last Admin: 04/14/20 08:13 Dose: 40 mg Documented by: Famotidine (Famotidine 20 Mg Tablet) 20 mg PO DAILY [facility] Last Admin: 04/14/20 08:12 Dose: 20 mg Documented by: Fluoxetine HCl (Fluoxetine 20 Mg Capsule) 20 mg PO BID [facility] Last Admin: 04/14/20 08:12 Dose: 20 mg Documented by: Glucagon (Glucagon 1 Mg/Ml Syringe) 1 mg IM .X1 PRN PRN Reason: Hypoglycemia Sodium Chloride () 250 mls @ 15 mls/hr IV .[id number] PRN PRN Reason: Saline Flush Remdesivir 200 mg/ Sodium (Chloride) 250 mls @ 125 mls/hr IV X1 ONE Stop: 04/14/20 12:29 Remdesivir 100 mg/ Sodium (Chloride) 250 mls @ 125 mls/hr IV DAILY [facility] Stop: 04/18/20 11:59 Insulin Human Lispro (Insulin Lispro 100 Unit/Ml Insuln.Pen) 0 unit SC ACHS [facility]; Protocol Last Admin: 04/14/20 07:03 Dose: 1 u Documented by: Levothyroxine Sodium (Levothyroxine 150 Mcg Tablet) 150 mcg PO DAILY [facility] Last Admin: 04/14/20 08:12 Dose: 150 mcg Documented by: Ondansetron HCl (Ondansetron 4 Mg/2 Ml Vial) 4 mg IV Q8H PRN PRN PRN Reason: NAUSEA/VOMITING Psyllium Hydrophilic Mucilloid (Psyllium 1 Packet) 1 packet PO DAILY PRN PRN PRN Reason: Constipation Sodium Chloride (0.9% Saline Lock 10 Ml Syringe) 10 - 40 ml IV UD PRN PRN Reason: SALINE FLUSH Last Admin: 04/13/20 21:43 Dose: 10 ml Documented by: Medical Necessity - Tobacco Use Smoking Status: Never smoker Tobacco Use: Non-smoker Assessment/Plan All Active Problems (Last Reviewed 08/22/19 @ 08:44 by Sheila Dozier) Pneumonia due to COVID-19 virus (Acute) COVID-19 virus infection (Acute) This is a 64 years old female patient presented to the emergency room because of weakness and mild shortness of breath with cough, was diagnosed with COVID-19 on April 02, found to have bilateral extensive pneumonia consistent with COVID- 19 pneumonia and complicated by acute hypoxic respiratory sufficiency. #1 acute extensive bilateral COVID-19 pneumonia: She is on p.o. Decadron and subcu Lovenox twice daily. She 71 dose of IV Rocephin and Zithromax in the ED. Routine blood work from today reviewed, was unremarkable. Lactic acid is back to normal. Blood cultures pending. Currently, she is on 2 L of oxygen. Plan: Start IV remdesivir, infectious disease consult, repeat CBC and CMP tomorrow morning. #2 acute hypoxic respiratory insufficiency: Secondary to #1. Patient is not on home oxygen. Currently, she is on 2 L. Plan as above. #3 type 2 diabetes mellitus: Blood sugar stable. Continue sliding scale, keep holding Metformin for now. #4 hypothyroidism: Continue levothyroxine. #5 depression: Stable, continue Wellbutrin and Prozac. #6 obstructive sleep apnea: Continue CPAP with same home settings. #7 DVT prophylaxis: She is on Lovenox twice daily. This note was generated with [employer] dictation software. It may contain incorrect words, spelling, and punctuation that were not noted in checking the note before signing. Inpatient E&M: 37372 Subs Hosp L2
--- NOTE | 2020-04-14 10:52 | NURSING ---
pt stated no need to call family for update
[2020-04-14 11:11] LABS: Bedside Glucose 152 mg/dL (70-110)
--- NOTE | 2020-04-14 14:36 | CASEMGMT ---
RN CM Assessment Intro role of CM to patient via phone. Pt is awake, alert and able to participate in assessment. Pt states she lives independently at home with her , no DME and no assistance or care needs. is asymptomatic, and will be tested on Thursday. Patient is aware of quarantine on dc and informed her dc instructions would discuss quarantine details. COVID Testing: [facility] office on Diagnosis: COVID 19 pneumonia PCP: Dr. Martinez Insurance: self-pay Pharmacy: [facility] benefits: no LNOK: DME: none. If oxygen is needed, reviewed cost for [facility] ($145/mth) and [facility] ($170.96/mth). Pt prefers [facility] and is aware they will require a debit or credit card prior to processing. Patient states she can afford this and will be able to provide needed information Pt's DC Goals: Home DC PLAN: home on dc. Recommend oxygen testing at rest and with activity prior to discharge. Script, clinical on front of chart with green sheet. Josh HOLMANN RN ACM
[2020-04-14 16:36] LABS: Bedside Glucose 199 mg/dL (70-110)
[2020-04-14 20:41] LABS: Bedside Glucose 138 mg/dL (70-110)
[2020-04-15 03:06] VITALS: BP 132/73; PULSE 66; RESP 18; TEMP 36.8; O2SAT 95
[2020-04-15] MEDS: Ondansetron 4 MG/2 ML Vial IV (03:09)
[2020-04-15] MEDS: 0.9% Saline Lock 10 ML Syringe IV ×2 (03:10→10:48)
[2020-04-15 06:49] LABS: Absolute Lymphocyte Count 1.25 X10^3/uL (0.83-4.51); Absolute Neutrophil Count 4.3 X10^3/uL (2.0-7.7); Basophil# 0.02 X10^3/uL; Basophil% 0.3 % (0-1); Hematocrit 34.7 % (37-47); Hemoglobin 11.2 g/dL (12.0-15.0); Lymphocyte # 1.25 X10^3/ul (4.0); Lymphocyte % 20.3 % (19-41); Mean Corp Hgb Conc 32.3 g/dL (32-36); Mean Corpuscular Hgb 27.8 pg (27.0-32.0); Mean Corpuscular Volume 86.1 fL (81-99); Monocyte# 0.52 X10^3/uL; Monocyte% 8.4 % (0-10); NRBC Flagged by Analyzer 0 % (0-5); Neutrophil # 4.33 X10^3/uL (2.7-7.7); Neutrophil % 70.2 % (47-70); POSITIVE MORPHOLOGY YES; Platelet Count 229 K/mm3 (150-450); RBC Distribution Width CV 14.9 % (11.6-14.6); RBC Distribution Width SD 47.3 fl (35.1-43.9); Red Blood Count 4.03 M/mm3 (4.2-5.4); White Blood Count 6.2 K/mm3 (4.4-11.0)
[2020-04-15 06:51] LABS: Bedside Glucose 128 mg/dL (70-110)
[2020-04-15 07:11] LABS: Differential Indicated SCAN CRITERIA MET
[2020-04-15 07:13] LABS: Differential Comment SCANNED; Reactive Lymphocyte 1+
[2020-04-15 07:17] LABS: ALB/GLOB Ratio 0.6 RATIO (0.9-2.4); AST(SGOT) 36 U/L (15-37); Alanine Aminotransfer ALT/SGPT 26 U/L (13-56); Albumin, Serum 2.3 g/dL (3.2-5.0); Alkaline Phosphatase 98 U/L (45-117); Anion Gap 7 (5-15); BUN 15 mg/dL (7-18); BUN/Creat Ratio 20.7 RATIO (10-20); Chloride 110 mmol/L (98-107); Creatinine, Serum 0.72 mg/dL (0.55-1.02); EST Glomerular Filtration Rate 87 mL/min (>60); Est Glom Filt Rate - Afr Amer 105 mL/min (>60); Estimated Creatinine Clearance 69.96 ml/min; Globulin 3.6 g/dL (2.2-4.2); Glucose 117 mg/dL (74-106); Potassium 3.8 mmol/L (3.5-5.1); Protein, Total 5.9 g/dL (6.4-8.2); Sodium Level 143 mmol/L (136-145)
--- NOTE | 2020-04-15 08:55 | PCM.PROGNOTE ---
Patient Problems: Active and Suspected Problems (Last Updated 04/14/20 @ 10:[address] Opal Peraza MD) Pneumonia due to COVID-19 virus (Acute) COVID-19 virus infection (Acute) Subjective: Chief complaint: Follow-up after admission for acute bilateral COVID-19 pneumonia and acute hypoxic respiratory insufficiency. Patient seen and examined. No acute events overnight. Today, patient reported minimal improvement of her symptoms. She required oxygen up to 3 L last night but this morning, she is down to 2 L. Other vital signs are stable. - Physical Exam Vitals/I&O's: Vital Signs Temp Pulse Resp BP Pulse Ox 98.2 F 66 18 132/73 H 95 04/15/20 03:06 04/15/20 03:06 04/15/20 03:06 04/15/20 03:06 04/15/20 03:06 Oxygen Flow Rate (L/min) [ 2 AMBULATION with Oxygen] Oxygen Flow Rate (L/min) 3 Oxygen Delivery Method Nasal Cannula Weight: 243 lb 11.2 oz Body Mass Index (BMI) 42.8 Finger Stick Blood Glucose 201 Orthostatic Vital Signs Start: 04/14/20 08:11 Freq: q24h Status: Active Protocol: Activity Type Activity Date Activity User E-Sign Co-Sign Detail Recorded Client Recorded Date Recorded By Document 04/14/20 08:11 TDW [id number] 04/14/20 08:12 TDW 04/14/20 08:11 Orthostatic Vitals Standing -Blood Pressure (90/60-120/80) 111/60 -Extremity Use Right Arm -Pulse Rate (60-100) 93 Sitting -Blood Pressure (90/60-120/80) 109/68 -Extremity Use Right Arm -Pulse Rate (60-100) 79 Lying -Blood Pressure (90/60-120/80) 144/89 H -Extremity Use Right Arm -Pulse Rate (60-100) 68 Intake and Output for Last 24 Hours 04/13/20 04/14/20 04/15/20 23:59 23:59 23:59 Intake Total 805 / 1055 2665 / 2665 900 / 900 Balance 805 / 1055 2665 / 2665 900 / 900 General: Alert, Oriented x3, Cooperative, No apparent distress HEENT: Atraumatic, PERRLA, EOMI, Normocephalic Oral: Moist Mucosa, No Gingival or Mucosal Lesions/ Ulcerations Neck: Supple, No JVD, Negative Carotid Bruits, Trachea Midline Lungs: Clear to auscultation, No rhonchi, No wheeze, No rales, Diminished Cardiovascular: Regular rate, Regular Rhythm, Normal S1, Normal S2, PMI Normal Abdomen: Bowel Sounds Present, Soft, Non Tender, Non-Distended, No Hepato-splenomegaly, Obese Extremities: No clubbing, No cyanosis, No edema Skin: No rashes, No breakdown Lymphatic: No Cervical, Supraclavicular, or Inguinal Adenopathy Neurological: Cranial nerves II-XII grossly intact, Neuro grossly intact Psych/Mental Status: Normal Affect, Appropriate, Alert and oriented to time, place, person, mood and affect Laboratory Results 04/14/20 06:35: Differential Comment SCANNED, Reactive Lymphocytes 1+ 04/14/20 10:51: POC Glucose 152 H 04/14/20 16:08: POC Glucose 199 H 04/14/20 20:22: POC Glucose 138 H 04/15/20 05:55: WBC 6.2, RBC 4.03 L, Hgb 11.2 L, Hct 34.7 L, MCV 86.1, MCH 27.8, MCHC 32.3, RDW Std Deviation 47.3 H, RDW Coeff of Krista 14.9 H, Plt Count 229, MPV 10.0, Immature Gran % (Auto) 0.800, Neut % (Auto) 70.2 H, Lymph % (Auto) 20.3, Bleckley % (Auto) 8.4, Eos % (Auto) 0.0, Baso % (Auto) 0.3, Absolute Neuts (auto) 4.3, Absolute Lymphs (auto) 1.25, Nucleated RBC % 0, Differential Comment SCANNED, Reactive Lymphocytes 1+ 04/15/20 05:55: Sodium 143, Potassium 3.8, Chloride 110 H, Carbon Dioxide 26.0, Anion Gap 7, BUN 15, Creatinine 0.72, Estim Creat Clear Calc 69.96, Est GFR (MDRD) Af Amer 105, Est GFR (MDRD) Non-Af 87, BUN/Creatinine Ratio 20.7 H, Glucose 117 H, Calcium 8.0 L, Total Bilirubin 0.50, AST 36, ALT 26, Alkaline Phosphatase 98, Total Protein 5.9 L, Albumin 2.3 L, Globulin 3.6, Albumin/Globulin Ratio 0.6 L 04/15/20 06:40: POC Glucose 128 H Current Medications Acetaminophen (Acetaminophen 325 Mg Tablet) 650 mg PO Q6H PRN PRN PRN Reason: Pain Score 1-10/Temp > 100.7 F Bupropion HCl (Bupropion (Xl) 150 Mg Tablet.Xl) 150 mg PO DAILY [facility] Last Admin: 04/14/20 08:13 Dose: 150 mg Documented by: Dexamethasone (Dexamethasone 2 Mg Tablet) 6 mg PO DAILY [facility] Last Admin: 04/14/20 08:12 Dose: 6 mg Documented by: Dextrose (Dextrose 50%-Water 25 Gm/50 Ml Disp.Syrin) 0 gm IV X1 PRN; Protocol PRN Reason: Hypoglycemia Enoxaparin Sodium (Enoxaparin 40 Mg/0.4 Ml Syringe) 40 mg SC BID [facility] Last Admin: 04/14/20 20:24 Dose: 40 mg Documented by: Famotidine (Famotidine 20 Mg Tablet) 20 mg PO DAILY [facility] Last Admin: 04/14/20 08:12 Dose: 20 mg Documented by: Fluoxetine HCl (Fluoxetine 20 Mg Capsule) 20 mg PO BID [facility] Last Admin: 04/14/20 20:24 Dose: 20 mg Documented by: Glucagon (Glucagon 1 Mg/Ml Syringe) 1 mg IM .X1 PRN PRN Reason: Hypoglycemia Sodium Chloride () 250 mls @ 15 mls/hr IV .[id number] PRN PRN Reason: Saline Flush Remdesivir 100 mg/ Sodium (Chloride) 250 mls @ 125 mls/hr IV DAILY [facility] Stop: 04/18/20 11:59 Insulin Human Lispro (Insulin Lispro 100 Unit/Ml Insuln.Pen) 0 unit SC ACHS [facility]; Protocol Last Admin: 04/15/20 06:41 Dose: Not Given Documented by: Levothyroxine Sodium (Levothyroxine 150 Mcg Tablet) 150 mcg PO DAILY [facility] Last Admin: 04/14/20 08:12 Dose: 150 mcg Documented by: Ondansetron HCl (Ondansetron 4 Mg/2 Ml Vial) 4 mg IV Q8H PRN PRN PRN Reason: NAUSEA/VOMITING Last Admin: 04/15/20 03:09 Dose: 4 mg Documented by: Psyllium Hydrophilic Mucilloid (Psyllium 1 Packet) 1 packet PO DAILY PRN PRN PRN Reason: Constipation Sodium Chloride (0.9% Saline Lock 10 Ml Syringe) 10 - 40 ml IV UD PRN PRN Reason: SALINE FLUSH Last Admin: 04/15/20 03:10 Dose: 10 ml Documented by: Medical Necessity - Tobacco Use Smoking Status: Never smoker Tobacco Use: Non-smoker Assessment/Plan All Active Problems (Last Updated 04/14/20 @ 10:[address] Opal Peraza MD) Pneumonia due to COVID-19 virus (Acute) COVID-19 virus infection (Acute) This is a 64 years old female patient presented to the emergency room because of weakness and mild shortness of breath with cough, was diagnosed with COVID-19 on April 02, found to have bilateral extensive pneumonia consistent with COVID-19 pneumonia and complicated by acute hypoxic respiratory sufficiency. #1 acute extensive bilateral COVID-19 pneumonia: She is on p.o. Decadron, IV remdesivir and subcu Lovenox twice daily. She has been afebrile, no leukocytosis today, on 2 L of oxygen. Other vital signs are stable. Lactic acid is back to normal. Blood cultures pending. Infectious disease consulted. Plan to continue same treatment. #2 acute hypoxic respiratory insufficiency: Secondary to #1. Patient is not on home oxygen. Currently, she is on 2 L. Plan as above. #3 type 2 diabetes mellitus: Blood sugar stable. Continue sliding scale, keep holding Metformin for now. #4 hypothyroidism: Continue levothyroxine. #5 depression: Stable, continue Wellbutrin and Prozac. #6 obstructive sleep apnea: Continue CPAP with same home settings. #7 DVT prophylaxis: She is on Lovenox twice daily. This note was generated with [employer] dictation software. It may contain incorrect words, spelling, and punctuation that were not noted in checking the note before signing. Inpatient E&M: 68672 Subs Hosp L2
[2020-04-15 09:37] VITALS: BP 134/69; PULSE 70; RESP 18; TEMP 36.9; O2SAT 93
[2020-04-15 09:41] VITALS: BP 137/68; BP 96/55; PULSE 67
--- NOTE | 2020-04-15 09:48 | NURSING ---
pt stated shw was feeling dizzy, bp had dropped, orthos not completed. pt placed in trendelenberg position.
[2020-04-15] MEDS: dexAMETHasone 2 MG TABLET 6 MG PO (09:54)
[2020-04-15] MEDS: buPROPion (XL) 150 MG TABLET.XL PO (09:55)
[2020-04-15] MEDS: Famotidine 20 MG Tablet PO (09:55)
[2020-04-15] MEDS: Levothyroxine 150 MCG Tablet PO (09:55)
[2020-04-15] MEDS: Enoxaparin 40 MG/0.4 ML Syringe SC ×2 (09:55→21:46)
[2020-04-15] MEDS: FLUoxetine 20 MG Capsule PO ×2 (09:56→21:46)
[2020-04-15] MEDS: Insulin Lispro 100 UNIT/ML INSULN.PEN SC ×2 (10:48→16:40)
[2020-04-15 11:01] LABS: Bedside Glucose 151 mg/dL (70-110)
[2020-04-15 14:00] VITALS: BP 146/67; PULSE 70; RESP 18; TEMP 36.9; O2SAT 92
[2020-04-15 17:05] LABS: Bedside Glucose 157 mg/dL (70-110)
[2020-04-15 21:39] VITALS: BP 147/90; PULSE 67; RESP 17; TEMP 36.7; O2SAT 93
[2020-04-15 21:55] LABS: Bedside Glucose 132 mg/dL (70-110)
[2020-04-16 04:14] VITALS: BP 153/79; PULSE 66; RESP 16; TEMP 36.6; O2SAT 93
[2020-04-16 06:45] LABS: Bedside Glucose 117 mg/dL (70-110)
[2020-04-16] MEDS: Enoxaparin 40 MG/0.4 ML Syringe SC ×2 (07:49→20:37)
[2020-04-16] MEDS: FLUoxetine 20 MG Capsule PO ×2 (07:50→20:37)
[2020-04-16] MEDS: Famotidine 20 MG Tablet PO (07:50)
[2020-04-16] MEDS: Levothyroxine 150 MCG Tablet PO (07:51)
[2020-04-16] MEDS: dexAMETHasone 2 MG TABLET 6 MG PO (07:51)
[2020-04-16] MEDS: buPROPion (XL) 150 MG TABLET.XL PO (07:51)
--- NOTE | 2020-04-16 09:23 | PCM.PROGNOTE ---
Patient Problems: Active and Suspected Problems (Last Updated 04/14/20 @ 10:[address] Opal Peraza MD) Pneumonia due to COVID-19 virus (Acute) COVID-19 virus infection (Acute) Subjective: Chief complaint: Follow-up after admission for acute bilateral COVID-19 pneumonia and acute hypoxic respiratory insufficiency. Patient seen and examined. No acute events overnight. Today, she is feeling better. Shortness of breath continue to improve slowly although she complained of exertional shortness of breath when she walks to the bathroom. Cough is improving. She has been afebrile. Other vital signs are stable. - Physical Exam Vitals/I&O's: Vital Signs Temp Pulse Resp BP Pulse Ox 97.9 F 66 16 153/79 H 93 04/16/20 04:14 04/16/20 04:14 04/16/20 04:14 04/16/20 04:14 04/16/20 04:14 Oxygen Flow Rate (L/min) [ 2 AMBULATION with Oxygen] Oxygen Flow Rate (L/min) 2 Oxygen Delivery Method Nasal Cannula Weight: 242 lb Body Mass Index (BMI) 42.8 Finger Stick Blood Glucose 201 Orthostatic Vital Signs Start: 04/14/20 08:11 Freq: Status: Active Protocol: Activity Type Activity Date Activity User E-Sign Co-Sign Detail Recorded Client Recorded Date Recorded By Document 04/15/20 09:41 RICARDO [id number] 04/15/20 09:46 RICARDO 04/15/20 09:41 Orthostatic Vitals Sitting -Blood Pressure (90/60-120/80) 96/55 L -Extremity Use Right Arm Lying -Blood Pressure (90/60-120/80) 137/68 H -Extremity Use Right Arm -Pulse Rate (60-100) 67 Intake and Output for Last 24 Hours 04/14/20 04/15/20 04/16/20 23:59 23:59 23:59 Intake Total 2665 / 2665 1700 / 1700 350 / 350 Balance 2665 / 2665 1700 / 1700 350 / 350 General: Alert, Oriented x3, Cooperative, No apparent distress HEENT: Atraumatic, PERRLA, EOMI, Normocephalic Oral: Moist Mucosa, No Gingival or Mucosal Lesions/ Ulcerations Neck: Supple, No JVD, Negative Carotid Bruits, Trachea Midline, Thyroid Normal Size and Texture Lungs: Clear to auscultation, Normal air movement, No rhonchi, No wheeze, No rales, Diminished Cardiovascular: Regular rate, Regular Rhythm, Normal S1, Normal S2, PMI Normal Abdomen: Bowel Sounds Present, Soft, Non Tender, Non-Distended, No Hepato-splenomegaly, Obese Extremities: No clubbing, No cyanosis, No edema Skin: No rashes, No breakdown Lymphatic: No Cervical, Supraclavicular, or Inguinal Adenopathy Neurological: Cranial nerves II-XII grossly intact, Neuro grossly intact Psych/Mental Status: Normal Affect, Appropriate, Alert and oriented to time, place, person, mood and affect Laboratory Results 04/15/20 10:46: POC Glucose 151 H 04/15/20 16:36: POC Glucose 157 H 04/15/20 21:44: POC Glucose 132 H 04/16/20 06:39: POC Glucose 117 H Current Medications Acetaminophen (Acetaminophen 325 Mg Tablet) 650 mg PO Q6H PRN PRN PRN Reason: Pain Score 1-10/Temp > 100.7 F Bupropion HCl (Bupropion (Xl) 150 Mg Tablet.Xl) 150 mg PO DAILY [facility] Last Admin: 04/16/20 07:51 Dose: 150 mg Documented by: Dexamethasone (Dexamethasone 2 Mg Tablet) 6 mg PO DAILY [facility] Last Admin: 04/16/20 07:51 Dose: 6 mg Documented by: Dextrose (Dextrose 50%-Water 25 Gm/50 Ml Disp.Syrin) 0 gm IV X1 PRN; Protocol PRN Reason: Hypoglycemia Enoxaparin Sodium (Enoxaparin 40 Mg/0.4 Ml Syringe) 40 mg SC BID [facility] Last Admin: 04/16/20 07:49 Dose: 40 mg Documented by: Famotidine (Famotidine 20 Mg Tablet) 20 mg PO DAILY [facility] Last Admin: 04/16/20 07:50 Dose: 20 mg Documented by: Fluoxetine HCl (Fluoxetine 20 Mg Capsule) 20 mg PO BID [facility] Last Admin: 04/16/20 07:50 Dose: 20 mg Documented by: Glucagon (Glucagon 1 Mg/Ml Syringe) 1 mg IM .X1 PRN PRN Reason: Hypoglycemia Sodium Chloride () 250 mls @ 15 mls/hr IV .[id number] PRN PRN Reason: Saline Flush Remdesivir 100 mg/ Sodium (Chloride) 250 mls @ 125 mls/hr IV DAILY [facility] Stop: 04/18/20 11:59 Last Infusion: 04/15/20 12:48 Dose: Infused Documented by: Insulin Human Lispro (Insulin Lispro 100 Unit/Ml Insuln.Pen) 0 unit SC ACHS [facility]; Protocol Last Admin: 04/16/20 06:40 Dose: Not Given Documented by: Levothyroxine Sodium (Levothyroxine 150 Mcg Tablet) 150 mcg PO DAILY [facility] Last Admin: 04/16/20 07:51 Dose: 150 mcg Documented by: Ondansetron HCl (Ondansetron 4 Mg/2 Ml Vial) 4 mg IV Q8H PRN PRN PRN Reason: NAUSEA/VOMITING Last Admin: 04/15/20 03:09 Dose: 4 mg Documented by: Psyllium Hydrophilic Mucilloid (Psyllium 1 Packet) 1 packet PO DAILY PRN PRN PRN Reason: Constipation Sodium Chloride (0.9% Saline Lock 10 Ml Syringe) 10 - 40 ml IV UD PRN PRN Reason: SALINE FLUSH Last Admin: 04/15/20 10:48 Dose: 10 ml Documented by: Medical Necessity - Tobacco Use Smoking Status: Never smoker Tobacco Use: Non-smoker Assessment/Plan All Active Problems (Last Updated 04/14/20 @ 10:[address] Opal Peraza MD) Pneumonia due to COVID-19 virus (Acute) COVID-19 virus infection (Acute) This is a 64 years old female patient presented to the emergency room because of weakness and mild shortness of breath with cough, was diagnosed with COVID-19 on April 02, found to have bilateral extensive pneumonia consistent with COVID-19 pneumonia and complicated by acute hypoxic respiratory sufficiency. #1 acute extensive bilateral COVID-19 pneumonia: Remains on p.o. Decadron, IV remdesivir and subcu Lovenox twice daily. Symptoms continue to improve very slowly but complaining of exertional shortness of breath. She has been afebrile, no leukocytosis today, on 2 L of oxygen. Other vital signs are stable. Lactic acid is back to normal. Blood cultures pending. Infectious disease consulted, awaiting recommendations. Plan to continue same treatment, repeat CBC and CMP tomorrow morning. #2 acute hypoxic respiratory insufficiency: Secondary to #1. Patient is not on home oxygen. Currently, she is on 2 L. Plan as above. #3 type 2 diabetes mellitus: Blood sugar stable. Continue sliding scale, keep holding Metformin for now. #4 hypothyroidism: Continue levothyroxine. #5 depression: Stable, continue Wellbutrin and Prozac. #6 obstructive sleep apnea: Continue CPAP with same home settings. #7 DVT prophylaxis: She is on Lovenox twice daily. This note was generated with [employer] dictation software. It may contain incorrect words, spelling, and punctuation that were not noted in checking the note before signing. Inpatient E&M: [id number] Subs Hosp L2
[2020-04-16] MEDS: 0.9% Saline Lock 10 ML Syringe IV (10:09)
[2020-04-16 10:13] VITALS: BP 151/90; PULSE 62; RESP 16; TEMP 36.9; O2SAT 93
[2020-04-16 12:10] LABS: Bedside Glucose 147 mg/dL (70-110)
--- NOTE | 2020-04-16 13:39 | NURSING ---
Pandemic Documentation initiated at date and time of admission on 04/13/2020
[2020-04-16 15:26] VITALS: BP 149/69; PULSE 65; RESP 16; TEMP 37; O2SAT 93
[2020-04-16 15:30] VITALS: O2SAT 95
--- NOTE | 2020-04-16 16:24 | PCM.HP.ID ---
Problem List (1) Pneumonia due to COVID-19 virus Status: Acute Reason for Consult: covid Consulted by: Dr. Peraza History of Present Illness: The patient is a 64 year old F with h/o shoulder PJI, presented with sx since 04/02 of cough, SOB, fever, chills, aches, and change in taste/smell. Came to ED 04/13, started on dex/remdesivir, feeling better, on 2L. Full ROS performed and neg except as noted above. - Medical History Past Medical History (Chronic Problems): Chronic Problems (Last Updated 04/14/20 @ 10:[address] Opal Peraza MD) Obstructive sleep apnea (Chronic) Wears CPAP Hypothyroidism (Chronic) Diabetes mellitus, type II (Chronic) Abnormal EKG (Chronic) Postop ekg changes along with elevated troponin 03/11/18 Allergies/Adverse Reactions: Allergies adhesive tape Allergy (Verified 04/13/20 15:00) BLISTERS/SCARS codeine Allergy (Verified 04/13/20 15:00) Shortness of breath Sulfa (Sulfonamide Antibiotics) Allergy (Verified 04/13/20 15:00) Rash Tetanus Vaccines and Toxoid [Tetanus Vaccines & Toxoid] Allergy (Verified 04/13/20 15:00) Swelling meperidine HCl [From Demerol] Adverse Reaction (Verified 04/13/20 15:00) Itching STERISTRIPS Allergy (Uncoded 04/13/20 15:00) BLISTERS/SCARS Home Medications: Ambulatory Orders Medication Instructions Recorded Fluoxetine [Prozac] 20 mg PO BID 06/05/14 Metformin HCl [Metformin ER 1,000 mg PO BID 06/28/18 Osmotic] Famotidine [Pepcid] 20 mg PO DAILY #30 tab 10/08/18 Bupropion HCl [Wellbutrin Xl] 150 mg PO DAILY 11/08/18 Levothyroxine Sodium [Synthroid] 150 mcg PO DAILY 04/13/20 - Social History SMOKING STATUS:: Never smoker Vital Signs Temp Pulse Resp BP Pulse Ox 98.6 F 65 16 149/69 H 95 04/16/20 15:26 04/16/20 15:26 04/16/20 15:26 04/16/20 15:26 04/16/20 15:30 Oxygen Flow Rate (L/min) [ 2 AMBULATION with Oxygen] Oxygen Flow Rate (L/min) 2 Oxygen Delivery Method Nasal Cannula Weight: 109.769 kg Body Mass Index (BMI) 42.8 Finger Stick Blood Glucose 201 Orthostatic Vital Signs Start: 04/14/20 08:11 Freq: Status: Active Protocol: Activity Type Activity Date Activity User E-Sign Co-Sign Detail Recorded Client Recorded Date Recorded By Document 04/15/20 09:41 RICARDO [id number] 04/15/20 09:46 RICARDO 04/15/20 09:41 Orthostatic Vitals Sitting -Blood Pressure (90/60-120/80 mm Hg) 96/55 L -Extremity Use Right Arm Lying -Blood Pressure (90/60-120/80 mm Hg) 137/68 H -Extremity Use Right Arm -Pulse Rate (60-100 beats/min) 67 Microbiology Past 72 Hours 04/13/20 16:35 Blood Culture - Preliminary Blood Culture (Wb) - Anticubital Right No growth in 48 hours. 04/13/20 16:30 Blood Culture - Preliminary Blood Culture (Wb) - Anticubital Left No growth in 48 hours. - Other Studies Radiology: [] reviewed Other Studies: [] Route of nutrition/ use of supplements: [] Nutritional Intake: [] IV Site: [] Jang Catheter: [] - Physical Exam General: Alert, Oriented x3, Cooperative, No apparent distress HEENT: Atraumatic, PERRLA, EOMI Neck: Supple, No Nodes Lungs: Clear to auscultation, Diminished Cardiovascular: Regular rate, Regular Rhythm Abdomen: Soft, Non Tender, Non-Distended Extremities: No edema Skin: No rashes IV Site: Peripheral, without redness Musculoskeletal: No Tenderness to Palpation of Joints or Extremities Neurological: Cranial nerves II-XII grossly intact - Assessment/Plan Antibiotics: [] Assessment/Plan: [] Active and Suspected Problems (Last Updated 04/14/20 @ 10:[address] Opal Peraza MD) Pneumonia due to COVID-19 virus (Acute) COVID-19 virus infection (Acute) covid with hypoxia - sx started 04/02. Plan on d/c home soon on 10 days total of dex, stopping remdesivir, and 2 weeks of low dose factor xa inhibitor like xarelto 10mg daily or eliquis 2.5mg bid. Feeling better. CT showed no PE. Quarantine for one more week. Will follow, thank you
[2020-04-16 16:55] LABS: Bedside Glucose 139 mg/dL (70-110)
[2020-04-16 20:36] VITALS: BP 146/83; PULSE 58; RESP 18; TEMP 36.9; O2SAT 94
[2020-04-16 21:40] LABS: Bedside Glucose 122 mg/dL (70-110)
[2020-04-17] VITALS (7 sets, daily range): BP systolic 132–151; BP diastolic 73–84; PULSE 54–62; RESP 16–20; TEMP 36.7–37; O2SAT 80–96
[2020-04-17 05:14] LABS: Absolute Lymphocyte Count 1.81 X10^3/uL (0.83-4.51); Absolute Neutrophil Count 4.3 X10^3/uL (2.0-7.7); Basophil# 0.02 X10^3/uL; Basophil% 0.3 % (0-1); Eosinophil# 0.01 X10^3/uL; Eosinophils% 0.1 % (0-5); Hematocrit 37.3 % (37-47); Hemoglobin 12.2 g/dL (12.0-15.0); Lymphocyte # 1.81 X10^3/ul (4.0); Lymphocyte % 26.7 % (19-41); Mean Corp Hgb Conc 32.7 g/dL (32-36); Mean Corpuscular Hgb 27.9 pg (27.0-32.0); Mean Corpuscular Volume 85.2 fL (81-99); Mean Platelet Vol. 9.4 fl (6.2-12.0); Monocyte# 0.52 X10^3/uL; Monocyte% 7.7 % (0-10); NRBC Flagged by Analyzer 0 % (0-5); Neutrophil # 4.32 X10^3/uL (2.7-7.7); Neutrophil % 63.9 % (47-70); Platelet Count 248 K/mm3 (150-450); RBC Distribution Width CV 14.6 % (11.6-14.6); RBC Distribution Width SD 45.3 fl (35.1-43.9); Red Blood Count 4.38 M/mm3 (4.2-5.4); White Blood Count 6.8 K/mm3 (4.4-11.0)
[2020-04-17 05:43] LABS: ALB/GLOB Ratio 0.8 RATIO (0.9-2.4); AST(SGOT) 43 U/L (15-37); Alanine Aminotransfer ALT/SGPT 49 U/L (13-56); Albumin, Serum 2.5 g/dL (3.2-5.0); Alkaline Phosphatase 96 U/L (45-117); Anion Gap 7 (5-15); BUN 18 mg/dL (7-18); BUN/Creat Ratio 23.5 RATIO (10-20); Calcium,Total 7.8 mg/dL (8.5-10.1); Chloride 107 mmol/L (98-107); Creatinine, Serum 0.77 mg/dL (0.55-1.02); EST Glomerular Filtration Rate 81 mL/min (>60); Est Glom Filt Rate - Afr Amer 98 mL/min (>60); Estimated Creatinine Clearance 65.42 ml/min; Globulin 3.1 g/dL (2.2-4.2); Glucose 106 mg/dL (74-106); Potassium 3.9 mmol/L (3.5-5.1); Protein, Total 5.6 g/dL (6.4-8.2); Sodium Level 143 mmol/L (136-145)
[2020-04-17 06:05] LABS: Bedside Glucose 94 mg/dL (70-110)
--- NOTE | 2020-04-17 07:35 | PCM.PN.HOSP ---
Patient Problems: Active and Suspected Problems (Last Updated 04/14/20 @ 10:[address] Opal Peraza MD) Pneumonia due to COVID-19 virus (Acute) COVID-19 virus infection (Acute) Reason for Visit: Acute hypoxic respiratory insufficiency due to COVID-19 pneumonia Objective: Patient pulse ox is borderline 91% at rest on room air, drops to 80% ambulating on room air, 89% on 2 L of oxygen. No fever or chills. Patient looks short of breath on walking. Physical exam General: Alert, Oriented x3, Cooperative, morbid obese BMI 40.9 kg/m? HEENT: Atraumatic, PERRLA, EOMI, Normocephalic Oral: No Gingival or Mucosal Lesions/ Ulcerations Neck: Supple, No JVD, Negative Carotid Bruits Lungs: Air entry diminished in bilateral lung bases. No crepitation/rhonchi Cardiovascular: Regular rate, Regular Rhythm, Normal S1, Normal S2, No murmurs Abdomen: Bowel Sounds Present, Soft, Non Tender, Non-Distended : No renal angle tenderness. No suprapubic tenderness. Extremities: No edema, Capillary Refill Less than 3 Seconds Skin: No rashes, No breakdown Musculoskeletal: No Tenderness to Palpation of Joints or Extremities Neurological: Cranial nerves II-XII grossly intact, Deep Tendon Reflexes 2+/4 and Symmetrical, Neuro grossly intact Psych/Mental Status: Normal Affect, Appropriate. Vitals/I&O's: Vital Signs Temp Pulse Resp BP Pulse Ox 98.1 F 58 L 18 141/81 H 96 04/17/20 02:52 04/17/20 02:52 04/17/20 02:52 04/17/20 02:52 04/17/20 02:52 Oxygen Flow Rate (L/min) [ 2 AMBULATION with Oxygen] Oxygen Flow Rate (L/min) 2 Oxygen Delivery Method Nasal Cannula Weight: 238 lb 8.642 oz Body Mass Index (BMI) 42.8 Finger Stick Blood Glucose 201 Orthostatic Vital Signs Start: 04/14/20 08:11 Freq: Status: Active Protocol: Activity Type Activity Date Activity User E-Sign Co-Sign Detail Recorded Client Recorded Date Recorded By Document 04/15/20 09:41 RICARDO [id number] 04/15/20 09:46 RICARDO 04/15/20 09:41 Orthostatic Vitals Sitting -Blood Pressure (90/60-120/80) 96/55 L -Extremity Use Right Arm Lying -Blood Pressure (90/60-120/80) 137/68 H -Extremity Use Right Arm -Pulse Rate (60-100) 67 Intake and Output for Last 24 Hours 04/15/20 04/16/20 04/17/20 23:59 23:59 23:59 Intake Total 1700 / 1700 1060 / 1060 Output Total Balance 1700 / 1700 1059 / 1059 Microbiology Past 72 Hours 04/13/20 16:35 Blood Culture (Wb) - Anticubital Right Blood Culture - Preliminary No growth in 48 hours. 04/13/20 16:30 Blood Culture (Wb) - Anticubital Left Blood Culture - Preliminary No growth in 48 hours. Laboratory Results 04/16/20 12:01: POC Glucose 147 H 04/16/20 16:52: POC Glucose 139 H 04/16/20 20:32: POC Glucose 122 H 04/17/20 05:06: WBC 6.8, RBC 4.38, Hgb 12.2, Hct 37.3, MCV 85.2, MCH 27.9, MCHC 32.7, RDW Std Deviation 45.3 H, RDW Coeff of Krista 14.6, Plt Count 248, MPV 9.4, Immature Gran % (Auto) 1.300 H, Neut % (Auto) 63.9, Lymph % (Auto) 26.7, Gaston % (Auto) 7.7, Eos % (Auto) 0.1, Baso % (Auto) 0.3, Absolute Neuts (auto) 4.3, Absolute Lymphs (auto) 1.81, Nucleated RBC % 0 04/17/20 05:06: Sodium 143, Potassium 3.9, Chloride 107, Carbon Dioxide 29.0, Anion Gap 7, BUN 18, Creatinine 0.77, Estim Creat Clear Calc 65.42, Est GFR (MDRD) Af Amer 98, Est GFR (MDRD) Non-Af 81, BUN/Creatinine Ratio 23.5 H, Glucose 106, Calcium 7.8 L, Total Bilirubin 0.60, AST 43 H, ALT 49, Alkaline Phosphatase 96, Total Protein 5.6 L, Albumin 2.5 L, Globulin 3.1, Albumin/Globulin Ratio 0.8 L 04/17/20 05:58: POC Glucose 94 Current Medications Acetaminophen (Acetaminophen 325 Mg Tablet) 650 mg PO Q6H PRN PRN PRN Reason: Pain Score 1-10/Temp > 100.7 F Bupropion HCl (Bupropion (Xl) 150 Mg Tablet.Xl) 150 mg PO DAILY [facility] Last Admin: 04/16/20 07:51 Dose: 150 mg Documented by: Dexamethasone (Dexamethasone 2 Mg Tablet) 6 mg PO DAILY [facility] Stop: 04/22/20 10:01 Last Admin: 04/16/20 07:51 Dose: 6 mg Documented by: Dextrose (Dextrose 50%-Water 25 Gm/50 Ml Disp.Syrin) 0 gm IV X1 PRN; Protocol PRN Reason: Hypoglycemia Enoxaparin Sodium (Enoxaparin 40 Mg/0.4 Ml Syringe) 40 mg SC BID [facility] Last Admin: 04/16/20 20:37 Dose: 40 mg Documented by: Famotidine (Famotidine 20 Mg Tablet) 20 mg PO DAILY [facility] Last Admin: 04/16/20 07:50 Dose: 20 mg Documented by: Fluoxetine HCl (Fluoxetine 20 Mg Capsule) 20 mg PO BID [facility] Last Admin: 04/16/20 20:37 Dose: 20 mg Documented by: Glucagon (Glucagon 1 Mg/Ml Syringe) 1 mg IM .X1 PRN PRN Reason: Hypoglycemia Sodium Chloride () 250 mls @ 15 mls/hr IV .[id number] PRN PRN Reason: Saline Flush Remdesivir 100 mg/ Sodium (Chloride) 250 mls @ 125 mls/hr IV DAILY [facility] Stop: 04/18/20 11:59 Last Infusion: 04/16/20 14:02 Dose: Infused Documented by: Insulin Human Lispro (Insulin Lispro 100 Unit/Ml Insuln.Pen) 0 unit SC ACHS [facility]; Protocol Last Admin: 04/17/20 06:05 Dose: Not Given Documented by: Levothyroxine Sodium (Levothyroxine 150 Mcg Tablet) 150 mcg PO DAILY [facility] Last Admin: 04/16/20 07:51 Dose: 150 mcg Documented by: Ondansetron HCl (Ondansetron 4 Mg/2 Ml Vial) 4 mg IV Q8H PRN PRN PRN Reason: NAUSEA/VOMITING Last Admin: 04/15/20 03:09 Dose: 4 mg Documented by: Psyllium Hydrophilic Mucilloid (Psyllium 1 Packet) 1 packet PO DAILY PRN PRN PRN Reason: Constipation Sodium Chloride (0.9% Saline Lock 10 Ml Syringe) 10 - 40 ml IV UD PRN PRN Reason: SALINE FLUSH Last Admin: 04/16/20 10:09 Dose: 10 ml Documented by: Medical Necessity - Tobacco Use Smoking Status: Never smoker Tobacco Use: Non-smoker Assessment/Plan All Active Problems (Last Updated 04/14/20 @ 10:[address] Opal Peraza MD) Pneumonia due to COVID-19 virus (Acute) COVID-19 virus infection (Acute) This is a 64 years old female patient presented to the emergency room because of weakness and mild shortness of breath with cough, was diagnosed with COVID-19 on April 02, found to have bilateral extensive pneumonia consistent with COVID-19 pneumonia and complicated by acute hypoxic respiratory sufficiency. #1 Acute hypoxic respiratory insufficiency due to acute extensive bilateral COVID-19 pneumonia: Remains on p.o. Decadron, IV remdesivir and subcut Lovenox twice daily. Patient has exertional dyspnea and continues to require to 2-3 L of oxygen. She has been afebrile, no leukocytosis. Lactic acid is back to normal. Blood cultures pending. Seen by ID. CT scan showed no PE. Patient will require NOACs prophylactic dose 2 weeks after discharge. Continue for 1 more week. Patient is not on home oxygen. 2. Type 2 diabetes mellitus: Blood sugar stable. Continue sliding scale, Metformin on hold. #4 hypothyroidism: Continue levothyroxine. #5 depression: Stable, continue Wellbutrin and Prozac. #6 obstructive sleep apnea: Continue CPAP with same home settings. #7 DVT prophylaxis: She is on Lovenox twice daily. Inpatient E&M: [id number] Subs Hosp L2
[2020-04-17] MEDS: buPROPion (XL) 150 MG TABLET.XL PO (08:48)
[2020-04-17] MEDS: Levothyroxine 150 MCG Tablet PO (08:48)
[2020-04-17] MEDS: Famotidine 20 MG Tablet PO (08:48)
[2020-04-17] MEDS: dexAMETHasone 2 MG TABLET 6 MG PO (08:48)
[2020-04-17] MEDS: FLUoxetine 20 MG Capsule PO ×2 (08:48→21:09)
[2020-04-17] MEDS: Enoxaparin 40 MG/0.4 ML Syringe SC ×2 (08:48→21:09)
[2020-04-17 12:45] LABS: Bedside Glucose 147 mg/dL (70-110)
[2020-04-17] MEDS: Insulin Lispro 100 UNIT/ML INSULN.PEN SC (16:33)
[2020-04-17 16:41] LABS: Bedside Glucose 159 mg/dL (70-110)
[2020-04-18] VITALS (11 sets, daily range): BP systolic 61–155; BP diastolic 51–83; PULSE 50–107; RESP 16–22; TEMP 36.5–37.1; O2SAT 91–96
[2020-04-18 03:16] LABS: Bedside Glucose 130 mg/dL (70-110)
--- NOTE | 2020-04-18 03:32 | PCM.PN.BLA ---
Progress Note Nurse reported patient stated that she passed out on the way back to bathroom. Unwitnessed. check orthostatic vitals.
--- NOTE | 2020-04-18 03:43 | NURSING ---
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 This RN went into room, pt was lying in bed. Per pt, she got up to the bathroom, and on her way back from the bathroom, she passed out. Pt denies hitting her head, no visible injuries noted. VSS, blood sugar 114. Pupils reactive, hand sandblast carver equal. Pt slightly tachypneic from being up, SpO2 91% on 2 L. Pt resting in bed, denies any further issues. This RN instructed pt to call when she needs to get up next and bed exit turned on. Pt resting in bed now. notified and ordered orthostatic vitals to be completed on pt. Jeremy Levine RN
[2020-04-18 04:30] LABS: Bedside Glucose 114 mg/dL (70-110)
[2020-04-18 07:25] LABS: Bedside Glucose 124 mg/dL (70-110)
[2020-04-18] MEDS: Famotidine 20 MG Tablet PO (08:49)
[2020-04-18] MEDS: dexAMETHasone 2 MG TABLET 6 MG PO (08:49)
[2020-04-18] MEDS: Enoxaparin 40 MG/0.4 ML Syringe SC ×2 (08:49→20:50)
[2020-04-18] MEDS: Levothyroxine 150 MCG Tablet PO (08:49)
[2020-04-18] MEDS: buPROPion (XL) 150 MG TABLET.XL PO (08:49)
[2020-04-18] MEDS: FLUoxetine 20 MG Capsule PO ×2 (08:49→20:50)
[2020-04-18] MEDS: 0.9% Normal Saline 1,000 ML 999 ML IV (09:54)
[2020-04-18] MEDS: 0.9% Saline Lock 10 ML Syringe IV (09:54)
[2020-04-18] MEDS: 0.9% Normal Saline 1,000 ML 75 ML IV (10:54)
[2020-04-18 12:06] LABS: Bedside Glucose 150 mg/dL (70-110)
--- NOTE | 2020-04-18 12:49 | CASEMGMT ---
RN SAYDA NOTE: Anticipate pt will d/c home on Eliquis. Pt has no prescription benefits. Pt will need Eliquis savings card @ d/c. Call placed to pt's room to discuss savings card. Pt states would prefer to have new prescriptions sent to [facility] retail pharmacy so she can get her medications prior to d/c. Eliquis savings card to be applied. Preferred pharmacy changed to [facility] retail in [facility] at this time. She states any payment needed for other medications or for Home O2 will need to be payed for by her as she does not have her Credit card/info at this time. Liborio HOLMANN RN
--- NOTE | 2020-04-18 15:17 | PCM.PN.HOSP ---
Patient Problems: Active and Suspected Problems (Last Updated 04/14/20 @ 10:[address] Opal Peraza MD) Pneumonia due to COVID-19 virus (Acute) COVID-19 virus infection (Acute) Reason for Visit: Follow-up for orthostatic hypotension and acute COVID-19 infection. Objective: Last night, hospitalist note reviewed. Patient passed out while going back to bed from the bathroom. Orthostatic vitals were positive for hypotension. 1 L of normal saline bolus ordered and then 100 mill per hour to continue. Physical exam General: Alert, Oriented x3, Cooperative, morbid obese BMI 40.9 kg/m? HEENT: Atraumatic, PERRLA, EOMI, Normocephalic Oral: No Gingival or Mucosal Lesions/ Ulcerations. Oral mucosa is dry. Neck: Supple, No JVD, Negative Carotid Bruits Lungs: Air entry diminished in bilateral lung bases. No crepitation/rhonchi. Cardiovascular: Regular rate, Regular Rhythm, Normal S1, Normal S2, No murmurs Abdomen: Bowel Sounds Present, Soft, Non Tender, Non-Distended : No renal angle tenderness. No suprapubic tenderness. Extremities: No edema, Capillary Refill Less than 3 Seconds Skin: No rashes, No breakdown Musculoskeletal: No Tenderness to Palpation of Joints or Extremities Neurological: Cranial nerves II-XII grossly intact, Deep Tendon Reflexes 2+/4 and Symmetrical, Neuro grossly intact Psych/Mental Status: Normal Affect, Appropriate. Vitals/I&O's: Vital Signs Temp Pulse Resp BP Pulse Ox 98.4 F 65 18 145/68 H 93 04/18/20 14:49 04/18/20 14:49 04/18/20 14:49 04/18/20 14:49 04/18/20 14:49 Oxygen Flow Rate (L/min) [ 2 AMBULATION with Oxygen] Oxygen Flow Rate (L/min) 2 Oxygen Delivery Method Nasal Cannula Weight: 237 lb 10.533 oz Body Mass Index (BMI) 42.8 Finger Stick Blood Glucose 201 Orthostatic Vital Signs Start: 04/14/20 08:11 Freq: Status: Active Protocol: Activity Type Activity Date Activity User E-Sign Co-Sign Detail Recorded Client Recorded Date Recorded By Document 04/18/20 04:21 [id number] 04/18/20 04:25 TM 04/18/20 04:21 Orthostatic Vitals Standing -Blood Pressure (90/60-120/80) 61/51 L -Extremity Use Right Arm -Pulse Rate (60-100) 107 H Sitting -Blood Pressure (90/60-120/80) 95/61 -Extremity Use Right Arm -Pulse Rate (60-100) 80 Lying -Blood Pressure (90/60-120/80) 138/79 H -Extremity Use Right Arm -Pulse Rate (60-100) 50 L Intake and Output for Last 24 Hours 04/16/20 04/17/20 04/18/20 23:59 23:59 23:59 Intake Total 1060 / 1060 250 / 490 1743.75 / 1743.75 Output Total Balance 1059 / 1059 250 / 490 1743.75 / 1743.75 Microbiology Past 72 Hours 04/13/20 16:35 Blood Culture (Wb) - Anticubital Right Blood Culture - Preliminary No growth in 48 hours. 04/13/20 16:30 Blood Culture (Wb) - Anticubital Left Blood Culture - Preliminary No growth in 48 hours. Laboratory Results 04/17/20 16:32: POC Glucose 159 H 04/17/20 21:08: POC Glucose 130 H 04/18/20 03:24: POC Glucose 114 H 04/18/20 06:31: POC Glucose 124 H 04/18/20 10:52: POC Glucose 150 H Current Medications Acetaminophen (Acetaminophen 325 Mg Tablet) 650 mg PO Q6H PRN PRN PRN Reason: Pain Score 1-10/Temp > 100.7 F Bupropion HCl (Bupropion (Xl) 150 Mg Tablet.Xl) 150 mg PO DAILY [facility] Last Admin: 04/18/20 08:49 Dose: 150 mg Documented by: Dexamethasone (Dexamethasone 2 Mg Tablet) 6 mg PO DAILY [facility] Stop: 04/22/20 10:01 Last Admin: 04/18/20 08:49 Dose: 6 mg Documented by: Dextrose (Dextrose 50%-Water 25 Gm/50 Ml Disp.Syrin) 0 gm IV X1 PRN; Protocol PRN Reason: Hypoglycemia Enoxaparin Sodium (Enoxaparin 40 Mg/0.4 Ml Syringe) 40 mg SC BID [facility] Last Admin: 04/18/20 08:49 Dose: 40 mg Documented by: Famotidine (Famotidine 20 Mg Tablet) 20 mg PO DAILY [facility] Last Admin: 04/18/20 08:49 Dose: 20 mg Documented by: Fluoxetine HCl (Fluoxetine 20 Mg Capsule) 20 mg PO BID [facility] Last Admin: 04/18/20 08:49 Dose: 20 mg Documented by: Glucagon (Glucagon 1 Mg/Ml Syringe) 1 mg IM .X1 PRN PRN Reason: Hypoglycemia Sodium Chloride () 250 mls @ 15 mls/hr IV .[id number] PRN PRN Reason: Saline Flush Sodium Chloride () 1,000 mls @ 75 mls/hr IV .[id number] [facility] Stop: 04/18/20 23:34 Last Infusion: 04/18/20 12:56 Dose: 75 mls/hr Documented by: Insulin Human Lispro (Insulin Lispro 100 Unit/Ml Insuln.Pen) 0 unit SC ACHS [facility]; Protocol Last Admin: 04/18/20 10:54 Dose: Not Given Documented by: Levothyroxine Sodium (Levothyroxine 150 Mcg Tablet) 150 mcg PO DAILY [facility] Last Admin: 04/18/20 08:49 Dose: 150 mcg Documented by: Ondansetron HCl (Ondansetron 4 Mg/2 Ml Vial) 4 mg IV Q8H PRN PRN PRN Reason: NAUSEA/VOMITING Last Admin: 04/15/20 03:09 Dose: 4 mg Documented by: Psyllium Hydrophilic Mucilloid (Psyllium 1 Packet) 1 packet PO DAILY PRN PRN PRN Reason: Constipation Sodium Chloride (0.9% Saline Lock 10 Ml Syringe) 10 - 40 ml IV UD PRN PRN Reason: SALINE FLUSH Last Admin: 04/18/20 09:54 Dose: 10 ml Documented by: STROKE Vital Signs/Narrative: Vital Signs Temp Pulse Resp BP Pulse Ox 04/18/20 14:49 98.4 F 65 18 145/68 H 93 Medical Necessity - Tobacco Use Smoking Status: Never smoker Tobacco Use: Non-smoker Assessment/Plan All Active Problems (Last Updated 04/14/20 @ 10:[address] Opal Peraza MD) Pneumonia due to COVID-19 virus (Acute) COVID-19 virus infection (Acute) This is a 64 years old female patient presented to the emergency room because of weakness and mild shortness of breath with cough, was diagnosed with COVID-19 on November 30, found to have bilateral extensive pneumonia consistent with COVID-19 pneumonia and complicated by acute hypoxic respiratory sufficiency. #1 Acute hypoxic respiratory insufficiency due to acute extensive bilateral COVID-19 pneumonia: Remains on p.o. Decadron, IV remdesivir and subcut Lovenox twice daily. Patient has exertional dyspnea and continues to require to 2-3 L of oxygen. She has been afebrile, no leukocytosis. Lactic acid is back to normal. Blood cultures pending. Seen by ID. CT scan showed no PE. Patient will require NOACs prophylactic dose 2 weeks after discharge. Continue for 1 more week. Patient is not on home oxygen. 04/18: Orthostatic hypotension mainly from volume contraction: IV fluid normal saline 1 L bolus 1000 mill per hour to continue. Avoid antihypertensive medications. 2. Type 2 diabetes mellitus: Blood sugar stable. Continue sliding scale, Metformin on hold. #4 hypothyroidism: Continue levothyroxine. #5 depression: Stable, continue Wellbutrin and Prozac. #6 obstructive sleep apnea: Continue CPAP with same home settings. #7 DVT prophylaxis: She is on Lovenox twice daily. Microbiology Past 72 Hours 04/13/20 16:35 Blood Culture (Wb) - Anticubital Right Blood Culture - Preliminary No growth in 48 hours. 04/13/20 16:30 Blood Culture (Wb) - Anticubital Left Blood Culture - Preliminary No growth in 48 hours. Laboratory Results 04/17/20 16:32: POC Glucose 159 H 04/17/20 21:08: POC Glucose 130 H 04/18/20 03:24: POC Glucose 114 H 04/18/20 06:31: POC Glucose 124 H 04/18/20 10:52: POC Glucose 150 H Clinical Impression(s) from Imaging Studies Chest X-Ray 04/13/20 15:21 IMPRESSION: Multifocal pneumonia. Electronically Signed: Allan Aviles, at 15:47 EST Tel , Service support , Chest CTA 04/13/20 17:08 IMPRESSION: 1. No pulmonary embolism 2. Bilateral extensive bilateral pneumonia. Active Medications Acetaminophen (Acetaminophen 325 Mg Tablet) 650 mg PO Q6H PRN PRN PRN Reason: Pain Score 1-10/Temp > 100.7 F Bupropion HCl (Bupropion (Xl) 150 Mg Tablet.Xl) 150 mg PO DAILY [facility] Last Admin: 04/18/20 08:49 Dose: 150 mg Documented by: Dexamethasone (Dexamethasone 2 Mg Tablet) 6 mg PO DAILY [facility] Stop: 04/22/20 10:01 Last Admin: 04/18/20 08:49 Dose: 6 mg Documented by: Dextrose (Dextrose 50%-Water 25 Gm/50 Ml Disp.Syrin) 0 gm IV X1 PRN; Protocol PRN Reason: Hypoglycemia Enoxaparin Sodium (Enoxaparin 40 Mg/0.4 Ml Syringe) 40 mg SC BID [facility] Last Admin: 04/18/20 08:49 Dose: 40 mg Documented by: Famotidine (Famotidine 20 Mg Tablet) 20 mg PO DAILY [facility] Last Admin: 04/18/20 08:49 Dose: 20 mg Documented by: Fluoxetine HCl (Fluoxetine 20 Mg Capsule) 20 mg PO BID [facility] Last Admin: 04/18/20 08:49 Dose: 20 mg Documented by: Glucagon (Glucagon 1 Mg/Ml Syringe) 1 mg IM .X1 PRN PRN Reason: Hypoglycemia Sodium Chloride () 250 mls @ 15 mls/hr IV .[id number] PRN PRN Reason: Saline Flush Sodium Chloride () 1,000 mls @ 75 mls/hr IV .[id number] [facility] Stop: 04/18/20 23:34 Last Infusion: 04/18/20 12:56 Dose: 75 mls/hr Documented by: Insulin Human Lispro (Insulin Lispro 100 Unit/Ml Insuln.Pen) 0 unit SC [facility]; Protocol Last Admin: 04/18/20 10:54 Dose: Not Given Documented by: Levothyroxine Sodium (Levothyroxine 150 Mcg Tablet) 150 mcg PO DAILY [facility] Last Admin: 04/18/20 08:49 Dose: 150 mcg Documented by: Ondansetron HCl (Ondansetron 4 Mg/2 Ml Vial) 4 mg IV Q8H PRN PRN PRN Reason: NAUSEA/VOMITING Last Admin: 04/15/20 03:09 Dose: 4 mg Documented by: Psyllium Hydrophilic Mucilloid (Psyllium 1 Packet) 1 packet PO DAILY PRN PRN PRN Reason: Constipation Sodium Chloride (0.9% Saline Lock 10 Ml Syringe) 10 - 40 ml IV UD PRN PRN Reason: SALINE FLUSH Last Admin: 04/18/20 09:54 Dose: 10 ml Documented by: Inpatient E&M: [id number] Subs Hosp L2
--- NOTE | 2020-04-18 15:56 | PCM.PN.ID ---
Patient Problems: Active and Suspected Problems (Last Updated 04/14/20 @ 10:[address] Opal Peraza MD) Pneumonia due to COVID-19 virus (Acute) COVID-19 virus infection (Acute) Subjective: Feeling better, still on some O2. No n/v/d. Had dizziness and fall last night. - Physical Exam Vitals/I&O's: Vital Signs Temp Pulse Resp BP Pulse Ox 98.4 F 65 18 145/68 H 93 04/18/20 14:49 04/18/20 14:49 04/18/20 14:49 04/18/20 14:49 04/18/20 14:49 Oxygen Flow Rate (L/min) [ 2 AMBULATION with Oxygen] Oxygen Flow Rate (L/min) 2 Oxygen Delivery Method Nasal Cannula Weight: 107.8 kg Body Mass Index (BMI) 42.8 Finger Stick Blood Glucose 201 Orthostatic Vital Signs Start: 04/14/20 08:11 Freq: Status: Active Protocol: Activity Type Activity Date Activity User E-Sign Co-Sign Detail Recorded Client Recorded Date Recorded By Document 04/18/20 04:21 TM [id number] 04/18/20 04:25 TM 04/18/20 04:21 Orthostatic Vitals Standing -Blood Pressure (90/60-120/80) 61/51 L -Extremity Use Right Arm -Pulse Rate (60-100) 107 H Sitting -Blood Pressure (90/60-120/80) 95/61 -Extremity Use Right Arm -Pulse Rate (60-100) 80 Lying -Blood Pressure (90/60-120/80) 138/79 H -Extremity Use Right Arm -Pulse Rate (60-100) 50 L Intake and Output for Last 24 Hours 04/16/20 04/17/20 04/18/20 23:59 23:59 23:59 Intake Total 1060 / 1060 250 / 490 1743.75 / 1743.75 Output Total Balance 1059 / 1059 250 / 490 1743.75 / 1743.75 General: Alert, Cooperative, No apparent distress Lungs: Clear to auscultation, Diminished Cardiovascular: Regular rate, Regular Rhythm Abdomen: Soft, Non Tender, Non-Distended Skin: No rashes Microbiology Past 72 Hours 04/13/20 16:35 Blood Culture (Wb) - Anticubital Right Blood Culture - Preliminary No growth in 48 hours. 04/13/20 16:30 Blood Culture (Wb) - Anticubital Left Blood Culture - Preliminary No growth in 48 hours. Laboratory Results 04/17/20 16:32: POC Glucose 159 H 04/17/20 21:08: POC Glucose 130 H 04/18/20 03:24: POC Glucose 114 H 04/18/20 06:31: POC Glucose 124 H 04/18/20 10:52: POC Glucose 150 H Current Medications Acetaminophen (Acetaminophen 325 Mg Tablet) 650 mg PO Q6H PRN PRN PRN Reason: Pain Score 1-10/Temp > 100.7 F Bupropion HCl (Bupropion (Xl) 150 Mg Tablet.Xl) 150 mg PO DAILY [facility] Last Admin: 04/18/20 08:49 Dose: 150 mg Documented by: Dexamethasone (Dexamethasone 2 Mg Tablet) 6 mg PO DAILY [facility] Stop: 04/22/20 10:01 Last Admin: 04/18/20 08:49 Dose: 6 mg Documented by: Dextrose (Dextrose 50%-Water 25 Gm/50 Ml Disp.Syrin) 0 gm IV X1 PRN; Protocol PRN Reason: Hypoglycemia Enoxaparin Sodium (Enoxaparin 40 Mg/0.4 Ml Syringe) 40 mg SC BID [facility] Last Admin: 04/18/20 08:49 Dose: 40 mg Documented by: Famotidine (Famotidine 20 Mg Tablet) 20 mg PO DAILY [facility] Last Admin: 04/18/20 08:49 Dose: 20 mg Documented by: Fluoxetine HCl (Fluoxetine 20 Mg Capsule) 20 mg PO BID [facility] Last Admin: 04/18/20 08:49 Dose: 20 mg Documented by: Glucagon (Glucagon 1 Mg/Ml Syringe) 1 mg IM .X1 PRN PRN Reason: Hypoglycemia Sodium Chloride () 250 mls @ 15 mls/hr IV .[id number] PRN PRN Reason: Saline Flush Sodium Chloride () 1,000 mls @ 75 mls/hr IV .[id number] [facility] Stop: 04/18/20 23:34 Last Infusion: 04/18/20 12:56 Dose: 75 mls/hr Documented by: Insulin Human Lispro (Insulin Lispro 100 Unit/Ml Insuln.Pen) 0 unit SC ACHS [facility]; Protocol Last Admin: 12/16/20 10:54 Dose: Not Given Documented by: Levothyroxine Sodium (Levothyroxine 150 Mcg Tablet) 150 mcg PO DAILY [facility] Last Admin: 04/18/20 08:49 Dose: 150 mcg Documented by: Ondansetron HCl (Ondansetron 4 Mg/2 Ml Vial) 4 mg IV Q8H PRN PRN PRN Reason: NAUSEA/VOMITING Last Admin: 04/15/20 03:09 Dose: 4 mg Documented by: Psyllium Hydrophilic Mucilloid (Psyllium 1 Packet) 1 packet PO DAILY PRN PRN PRN Reason: Constipation Sodium Chloride (0.9% Saline Lock 10 Ml Syringe) 10 - 40 ml IV UD PRN PRN Reason: SALINE FLUSH Last Admin: 04/18/20 09:54 Dose: 10 ml Documented by: Medical Necessity - Tobacco Use Smoking Status: Never smoker Tobacco Use: Non-smoker Route of nutrition/ use of supplements: [] Nutritional Intake: [] IV Site: [] Jang Catheter: [] - Assessment/Plan Antibiotics: [] Assessment/Plan: [] Active and Suspected Problems (Last Updated 04/14/20 @ 10:[address] Opal Peraza MD) Pneumonia due to COVID-19 virus (Acute) COVID-19 virus infection (Acute) covid with hypoxia - sx started 04/02. Ok d/c home once medically stable on 10 days total of dex, stopping remdesivir, and 2 weeks of low dose factor xa inhibitor like xarelto 10mg daily or eliquis 2.5mg bid. Feeling better. CT showed no PE. Quarantine for 20 days from sx start on 04/02. Will follow
--- NOTE | 2020-04-18 16:19 | CHAPLAIN ---
Type of Pastoral Visit ___ Initial Visit ___ Follow-up Visit ___ On-call Visit ___ General Patient Visit ___ Spiritual Assessment ___ Family Conference ___ Bereavement ___ Rapid Response ___ Code Blue _x__ Other (describe below) Pastoral Care Referral From ___ Patient ___ Family ___ Nurse ___ Physician ___ Strategic Account Executive ___ Straw Hat Machine Operator _x__ Other (describe below) Sacrament/Intervention _x__ Active listening ___ Anointing ___ Uatsdin ___ Bereavement ___ Communion ___ April exploration ___ ___ Life review _x__ Prayer ___ Reconciliation ___ Sacrament of Sick _x__ Supportive presence ___ Wedding ___ Other (describe below) Pastoral Comments phone call into isolation room; patient expressed delight in being called and offered support; pt states she is doing much better; pt did share concern about her lack of health insurance; instructed pt to discuss further with SW team; pt does have family support and a gnosticist connection that is available to her; prayer welcomed
[2020-04-18] MEDS: Insulin Lispro 100 UNIT/ML INSULN.PEN SC (17:15)
[2020-04-18 17:16] LABS: Bedside Glucose 214 mg/dL (70-110)
--- NOTE | 2020-04-18 19:00 | PCS.PANDOC ---
Addendum entered by Jolanta Quiles 04/19/20 00:30: PANDEMIC DOCUMENTATION INITIATED: Date: 04/18/20 Time: 1899 Original Note: PANDEMIC DOCUMENTATION INITIATED: Date: Time:
[2020-04-18 22:51] LABS: Bedside Glucose 140 mg/dL (70-110)
[2020-04-19] VITALS (9 sets, daily range): BP systolic 62–149; BP diastolic 32–86; PULSE 55–108; RESP 16–19; TEMP 36.4–36.9; O2SAT 92–95
[2020-04-19 06:39] LABS: Absolute Lymphocyte Count 1.91 X10^3/uL (0.83-4.51); Absolute Neutrophil Count 7.1 X10^3/uL (2.0-7.7); Basophil# 0.01 X10^3/uL; Basophil% 0.1 % (0-1); Eosinophil# 0.02 X10^3/uL; Eosinophils% 0.2 % (0-5); Hematocrit 40.3 % (37-47); Hemoglobin 13.2 g/dL (12.0-15.0); Lymphocyte # 1.91 X10^3/ul (4.0); Lymphocyte % 19.4 % (19-41); Mean Corp Hgb Conc 32.8 g/dL (32-36); Mean Corpuscular Hgb 28.1 pg (27.0-32.0); Mean Corpuscular Volume 85.9 fL (81-99); Mean Platelet Vol. 9.8 fl (6.2-12.0); Monocyte# 0.68 X10^3/uL; Monocyte% 6.9 % (0-10); NRBC Flagged by Analyzer 0 % (0-5); Neutrophil # 7.11 X10^3/uL (2.7-7.7); Platelet Count 303 K/mm3 (150-450); RBC Distribution Width CV 14.6 % (11.6-14.6); RBC Distribution Width SD 44.6 fl (35.1-43.9); Red Blood Count 4.69 M/mm3 (4.2-5.4); White Blood Count 9.9 K/mm3 (4.4-11.0)
[2020-04-19 07:10] LABS: ALB/GLOB Ratio 0.7 RATIO (0.9-2.4); AST(SGOT) 29 U/L (15-37); Alanine Aminotransfer ALT/SGPT 50 U/L (13-56); Albumin, Serum 2.6 g/dL (3.2-5.0); Alkaline Phosphatase 95 U/L (45-117); Anion Gap 5 (5-15); BUN 17 mg/dL (7-18); BUN/Creat Ratio 22.6 RATIO (10-20); Chloride 106 mmol/L (98-107); Creatinine, Serum 0.75 mg/dL (0.55-1.02); EST Glomerular Filtration Rate 83 mL/min (>60); Est Glom Filt Rate - Afr Amer 100 mL/min (>60); Estimated Creatinine Clearance 67.16 ml/min; Globulin 3.7 g/dL (2.2-4.2); Glucose 102 mg/dL (74-106); Magnesium 2.3 mg/dL (1.6-2.6); Potassium 3.9 mmol/L (3.5-5.1); Protein, Total 6.3 g/dL (6.4-8.2); Sodium Level 142 mmol/L (136-145)
[2020-04-19 07:20] LABS: Bedside Glucose 79 mg/dL (70-110)
[2020-04-19] MEDS: Famotidine 20 MG Tablet PO (09:25)
[2020-04-19] MEDS: dexAMETHasone 2 MG TABLET 6 MG PO (09:26)
[2020-04-19] MEDS: FLUoxetine 20 MG Capsule PO ×2 (09:26→22:18)
[2020-04-19] MEDS: Levothyroxine 150 MCG Tablet PO (09:26)
[2020-04-19] MEDS: Enoxaparin 40 MG/0.4 ML Syringe SC ×2 (09:26→22:18)
[2020-04-19] MEDS: buPROPion (XL) 150 MG TABLET.XL PO (09:27)
--- NOTE | 2020-04-19 09:49 | RAD_ITS ---
STUDY: X-RAY CHEST REASON FOR EXAM: Female, 64 years old. TACHYPNEA, SOB TECHNIQUE: Single AP portable view of the chest. COMPARISON: Comparison is made with prior study dated 04/13/2020. FINDINGS: Persistent bilateral patchy infiltrates. These have improved as compared to prior study. Further follow-up is recommended. There is no demonstrated pleural abnormality. Normal size heart. Normal mediastinum and jw. Normal visualized pulmonary arteries. Normal visualized aortic arch and descending thoracic aorta. There are diffuse degenerative changes of the visualized thoracic spine. Status post left shoulder replacement. There is no demonstrated abnormality of the visualized soft tissue structures of the upper abdomen. RAD/Chest 1 View (Portable) IMPRESSION: Persistent bilateral patchy infiltrates worse at left lung base although there has been moderate degree of improvement. Further follow-up is recommended. Electronically Signed: Edgar Robert, at 14:41 EST , Service support ,
--- NOTE | 2020-04-19 09:49 | PCM.PN.HOSP ---
Patient Problems: Active and Suspected Problems (Last Updated 04/14/20 @ 10:[address] Opal Peraza MD) Pneumonia due to COVID-19 virus (Acute) COVID-19 virus infection (Acute) Reason for Visit: Follow-up for dizziness and orthostatic hypotension. Patient has COVID-19 infection. Objective: Patient complain of dizziness but no nystagmus. Orthostatic blood pressure drop from 113/63, heart rate 64 supine to 62/32, heart rate 108/min on standing. As per nursing staff, there was some crackle last night therefore IV fluid was discontinued. Denies any respiratory distress. Physical exam General: Alert, Oriented x3, Cooperative, discomfort from dizziness HEENT: Atraumatic, PERRLA, EOMI, Normocephalic. No nystagmus Oral: No Gingival or Mucosal Lesions/ Ulcerations Neck: Supple, No JVD, Negative Carotid Bruits Lungs: Air entry diminished in bilateral lung bases. No crepitation/rhonchi Cardiovascular: Regular rate, Regular Rhythm, Normal S1, Normal S2, No murmurs Abdomen: Bowel Sounds Present, Soft, Non Tender, Non-Distended : No renal angle tenderness. No suprapubic tenderness. Extremities: No edema, Capillary Refill Less than 3 Seconds Skin: No rashes, No breakdown Musculoskeletal: No Tenderness to Palpation of Joints or Extremities Neurological: Cranial nerves II-XII grossly intact, Deep Tendon Reflexes 2+/4 and Symmetrical, Neuro grossly intact Psych/Mental Status: Normal Affect, Appropriate. Vitals/I&O's: Vital Signs Temp Pulse Resp BP Pulse Ox 97.9 F 64 19 H 113/63 93 04/19/20 09:12 04/19/20 09:33 04/19/20 09:12 04/19/20 09:33 04/19/20 09:12 Oxygen Flow Rate (L/min) [ 2 AMBULATION with Oxygen] Oxygen Flow Rate (L/min) 2 Oxygen Delivery Method Nasal Cannula Weight: 235 lb 14.314 oz Body Mass Index (BMI) 42.8 Finger Stick Blood Glucose 201 Orthostatic Vital Signs Start: 04/14/20 08:11 Freq: Status: Active Protocol: Activity Type Activity Date Activity User E-Sign Co-Sign Detail Recorded Client Recorded Date Recorded By Document 04/19/20 09:33 HARIS [id number] 04/19/20 09:36 JS 04/19/20 09:33 Orthostatic Vitals Standing -Blood Pressure (90/60-120/80 mm Hg) 62/32 L -Extremity Use Right Arm -Pulse Rate (60-100 beats/min) 108 H Sitting -Blood Pressure (90/60-120/80 mm Hg) 93/55 L -Extremity Use Right Arm -Pulse Rate (60-100 beats/min) 95 Lying -Blood Pressure (90/60-120/80 mm Hg) 113/63 -Extremity Use Right Arm -Pulse Rate (60-100 beats/min) 64 Intake and Output for Last 24 Hours 04/17/20 04/18/20 04/19/20 23:59 23:59 23:59 Intake Total 250 / 490 2283.75 / 2283.75 996.25 / 996.25 Output Total 500 / 500 Balance 250 / 490 1783.75 / 1783.75 996.25 / 996.25 Microbiology Past 72 Hours 04/13/20 16:30 Blood Culture (Wb) - Anticubital Left Blood Culture - Final No growth in 5 days. 04/13/20 16:35 Blood Culture (Wb) - Anticubital Right Blood Culture - Final No growth in 5 days. Laboratory Results 04/18/20 10:52: POC Glucose 150 H 04/18/20 17:08: POC Glucose 214 H 04/18/20 20:48: POC Glucose 140 H 04/19/20 06:14: WBC 9.9, RBC 4.69, Hgb 13.2, Hct 40.3, MCV 85.9, MCH 28.1, MCHC 32.8, RDW Std Deviation 44.6 H, RDW Coeff of Krista 14.6, Plt Count 303, MPV 9.8, Immature Gran % (Auto) 1.400 H, Neut % (Auto) 72.0 H, Lymph % (Auto) 19.4, Burnett % (Auto) 6.9, Eos % (Auto) 0.2, Baso % (Auto) 0.1, Absolute Neuts (auto) 7.1, Absolute Lymphs (auto) 1.91, Nucleated RBC % 0 04/19/20 06:14: Sodium 142, Potassium 3.9, Chloride 106, Carbon Dioxide 31.0, Anion Gap 5, BUN 17, Creatinine 0.75, Estim Creat Clear Calc 67.16, Est GFR (MDRD) Af Amer 100, Est GFR (MDRD) Non-Af 83, BUN/Creatinine Ratio 22.6 H, Glucose 102, Calcium 8.0 L, Magnesium 2.3, Total Bilirubin 0.50, AST 29, ALT 50, Alkaline Phosphatase 95, Total Protein 6.3 L, Albumin 2.6 L, Globulin 3.7, Albumin/Globulin Ratio 0.7 L 04/19/20 06:54: POC Glucose 79 Current Medications Acetaminophen (Acetaminophen 325 Mg Tablet) 650 mg PO Q6H PRN PRN PRN Reason: Pain Score 1-10/Temp > 100.7 F Bupropion HCl (Bupropion (Xl) 150 Mg Tablet.Xl) 150 mg PO DAILY [facility] Last Admin: 04/19/20 09:27 Dose: 150 mg Documented by: Dexamethasone (Dexamethasone 2 Mg Tablet) 6 mg PO DAILY [facility] Stop: 04/22/20 10:01 Last Admin: 04/19/20 09:26 Dose: 6 mg Documented by: Dextrose (Dextrose 50%-Water 25 Gm/50 Ml Disp.Syrin) 0 gm IV X1 PRN; Protocol PRN Reason: Hypoglycemia Enoxaparin Sodium (Enoxaparin 40 Mg/0.4 Ml Syringe) 40 mg SC BID [facility] Last Admin: 04/19/20 09:26 Dose: 40 mg Documented by: Famotidine (Famotidine 20 Mg Tablet) 20 mg PO DAILY [facility] Last Admin: 04/19/20 09:25 Dose: 20 mg Documented by: Fluoxetine HCl (Fluoxetine 20 Mg Capsule) 20 mg PO BID [facility] Last Admin: 04/19/20 09:26 Dose: 20 mg Documented by: Glucagon (Glucagon 1 Mg/Ml Syringe) 1 mg IM .X1 PRN PRN Reason: Hypoglycemia Sodium Chloride () 250 mls @ 15 mls/hr IV .[id number] PRN PRN Reason: Saline Flush Insulin Human Lispro (Insulin Lispro 100 Unit/Ml Insuln.Pen) 0 unit SC ACHS [facility]; Protocol Last Admin: 04/19/20 06:55 Dose: Not Given Documented by: Levothyroxine Sodium (Levothyroxine 150 Mcg Tablet) 150 mcg PO DAILY [facility] Last Admin: 04/19/20 09:26 Dose: 150 mcg Documented by: Ondansetron HCl (Ondansetron 4 Mg/2 Ml Vial) 4 mg IV Q8H PRN PRN PRN Reason: NAUSEA/VOMITING Last Admin: 04/15/20 03:09 Dose: 4 mg Documented by: Psyllium Hydrophilic Mucilloid (Psyllium 1 Packet) 1 packet PO DAILY PRN PRN PRN Reason: Constipation Sodium Chloride (0.9% Saline Lock 10 Ml Syringe) 10 - 40 ml IV UD PRN PRN Reason: SALINE FLUSH Last Admin: 04/18/20 09:54 Dose: 10 ml Documented by: STROKE Vital Signs/Narrative: Vital Signs Temp Pulse Pulse Pulse Pulse Resp BP 04/19/20 09:33 64 95 108 H 04/19/20 09:12 97.9 F 82 19 H 106/68 04/19/20 08:08 04/19/20 06:56 55 L 91 108 H BP BP BP Pulse Ox 04/19/20 09:33 113/63 93/55 L 62/32 L 04/19/20 09:12 93 04/19/20 08:08 93 04/19/20 06:56 147/86 H 97/56 L 80/43 L Medical Necessity - Tobacco Use Smoking Status: Never smoker Tobacco Use: Non-smoker Assessment/Plan All Active Problems (Last Updated 04/14/20 @ 10:[address] Opal Peraza MD) Pneumonia due to COVID-19 virus (Acute) COVID-19 virus infection (Acute) This is a 64 years old female patient presented to the emergency room because of weakness and mild shortness of breath with cough, was diagnosed with COVID-19 on April 02, found to have bilateral extensive pneumonia consistent with COVID-19 pneumonia and complicated by acute hypoxic respiratory sufficiency. #1 Acute hypoxic respiratory insufficiency due to acute extensive bilateral COVID-19 pneumonia: Remains on p.o. Decadron, IV remdesivir and subcut Lovenox twice daily. Patient has exertional dyspnea and continues to require to 2-3 L of oxygen. She has been afebrile, no leukocytosis. Lactic acid is back to normal. Blood cultures pending. Seen by ID. CT scan showed no PE. Patient will require NOACs prophylactic dose 2 weeks after discharge. Continue for 1 more week. Patient is not on home oxygen. 12/16: Orthostatic hypotension mainly from volume contraction: IV fluid normal saline 1 L bolus 1000 mill per hour to continue. Avoid antihypertensive medications. 04/19: Patient still has orthostatic hypotension: Started on midodrine 5 mg 3 times daily along with IV fluid 100 mL/h for 1 L. Thigh-high ESTER hose. Chest x-ray portable ordered. On 2 L of oxygen. 2. Type 2 diabetes mellitus: Blood sugar stable. Continue sliding scale, Metformin on hold. #4 hypothyroidism: Continue levothyroxine. #5 depression: Stable, continue Wellbutrin and Prozac. #6 obstructive sleep apnea: Continue CPAP with same home settings. #7 DVT prophylaxis: She is on Lovenox twice daily. Microbiology Past 72 Hours 04/13/20 16:30 Blood Culture (Wb) - Anticubital Left Blood Culture - Final No growth in 5 days. 04/13/20 16:35 Blood Culture (Wb) - Anticubital Right Blood Culture - Final No growth in 5 days. Laboratory Results 04/18/20 17:08: POC Glucose 214 H 04/18/20 20:48: POC Glucose 140 H 04/19/20 06:14: WBC 9.9, RBC 4.69, Hgb 13.2, Hct 40.3, MCV 85.9, MCH 28.1, MCHC 32.8, RDW Std Deviation 44.6 H, RDW Coeff of Krista 14.6, Plt Count 303, MPV 9.8, Immature Gran % (Auto) 1.400 H, Neut % (Auto) 72.0 H, Lymph % (Auto) 19.4, Burnett % (Auto) 6.9, Eos % (Auto) 0.2, Baso % (Auto) 0.1, Absolute Neuts (auto) 7.1, Absolute Lymphs (auto) 1.91, Nucleated RBC % 0 04/19/20 06:14: Sodium 142, Potassium 3.9, Chloride 106, Carbon Dioxide 31.0, Anion Gap 5, BUN 17, Creatinine 0.75, Estim Creat Clear Calc 67.16, Est GFR (MDRD) Af Amer 100, Est GFR (MDRD) Non-Af 83, BUN/Creatinine Ratio 22.6 H, Glucose 102, Calcium 8.0 L, Magnesium 2.3, Total Bilirubin 0.50, AST 29, ALT 50, Alkaline Phosphatase 95, Total Protein 6.3 L, Albumin 2.6 L, Globulin 3.7, Albumin/Globulin Ratio 0.7 L 04/19/20 06:54: POC Glucose 79 Clinical Impression(s) from Imaging Studies Chest X-Ray 04/13/20 15:21 IMPRESSION: Multifocal pneumonia. Electronically Signed: Allan Aviles, at 15:47 EST Tel , Service support , Chest CTA 04/13/20 17:08 IMPRESSION: 1. No pulmonary embolism 2. Bilateral extensive bilateral pneumonia. Chest CTA 04/13/20 17:08 IMPRESSION: 1. No pulmonary embolism 2. Bilateral extensive bilateral pneumonia. Active Medications Acetaminophen (Acetaminophen 325 Mg Tablet) 650 mg PO Q6H PRN PRN PRN Reason: Pain Score 1-10/Temp > 100.7 F Bupropion HCl (Bupropion (Xl) 150 Mg Tablet.Xl) 150 mg PO DAILY [facility] Last Admin: 04/18/20 08:49 Dose: 150 mg Documented by: Dexamethasone (Dexamethasone 2 Mg Tablet) 6 mg PO DAILY [facility] Stop: 04/22/20 10:01 Last Admin: 04/18/20 08:49 Dose: 6 mg Documented by: Dextrose (Dextrose 50%-Water 25 Gm/50 Ml Disp.Syrin) 0 gm IV X1 PRN; Protocol PRN Reason: Hypoglycemia Enoxaparin Sodium (Enoxaparin 40 Mg/0.4 Ml Syringe) 40 mg SC BID [facility] Last Admin: 04/18/20 08:49 Dose: 40 mg Documented by: Famotidine (Famotidine 20 Mg Tablet) 20 mg PO DAILY [facility] Last Admin: 04/18/20 08:49 Dose: 20 mg Documented by: Fluoxetine HCl (Fluoxetine 20 Mg Capsule) 20 mg PO BID [facility] Last Admin: 04/18/20 08:49 Dose: 20 mg Documented by: Glucagon (Glucagon 1 Mg/Ml Syringe) 1 mg IM .X1 PRN PRN Reason: Hypoglycemia Sodium Chloride () 250 mls @ 15 mls/hr IV .[id number] PRN PRN Reason: Saline Flush Sodium Chloride () 1,000 mls @ 75 mls/hr IV .[id number] [facility] Stop: 04/18/20 23:34 Last Infusion: 04/18/20 12:56 Dose: 75 mls/hr Documented by: Insulin Human Lispro (Insulin Lispro 100 Unit/Ml Insuln.Pen) 0 unit SC [facility]; Protocol Last Admin: 04/18/20 10:54 Dose: Not Given Documented by: Levothyroxine Sodium (Levothyroxine 150 Mcg Tablet) 150 mcg PO DAILY [facility] Last Admin: 04/18/20 08:49 Dose: 150 mcg Documented by: Ondansetron HCl (Ondansetron 4 Mg/2 Ml Vial) 4 mg IV Q8H PRN PRN PRN Reason: NAUSEA/VOMITING Last Admin: 04/15/20 03:09 Dose: 4 mg Documented by: Psyllium Hydrophilic Mucilloid (Psyllium 1 Packet) 1 packet PO DAILY PRN PRN PRN Reason: Constipation Sodium Chloride (0.9% Saline Lock 10 Ml Syringe) 10 - 40 ml IV UD PRN PRN Reason: SALINE FLUSH Last Admin: 04/18/20 09:54 Dose: 10 ml Documented by: Inpatient E&M: [id number] [facility] Hosp L2
[2020-04-19] MEDS: Midodrine HCl 5 MG Tablet PO ×2 (12:22→17:21)
[2020-04-19] MEDS: 0.9% Normal Saline 1,000 ML 100 ML IV (12:23)
[2020-04-19] MEDS: Insulin Lispro 100 UNIT/ML INSULN.PEN SC (17:14)
[2020-04-19 21:36] LABS: Bedside Glucose 203 mg/dL (70-110)
[2020-04-19 22:25] LABS: Bedside Glucose 130 mg/dL (70-110)
[2020-04-20] VITALS (10 sets, daily range): BP systolic 100–159; BP diastolic 58–92; PULSE 57–100; RESP 16–18; TEMP 36.3–36.9; O2SAT 85–96
[2020-04-20 07:12] LABS: Absolute Lymphocyte Count 2.09 X10^3/uL (0.83-4.51); Absolute Neutrophil Count 9.4 X10^3/uL (2.0-7.7); Basophil# 0.02 X10^3/uL; Basophil% 0.2 % (0-1); Eosinophil# 0.01 X10^3/uL; Eosinophils% 0.1 % (0-5); Hematocrit 41.3 % (37-47); Hemoglobin 13.3 g/dL (12.0-15.0); Lymphocyte # 2.09 X10^3/ul (4.0); Lymphocyte % 16.7 % (19-41); Mean Corp Hgb Conc 32.2 g/dL (32-36); Mean Corpuscular Hgb 27.6 pg (27.0-32.0); Mean Corpuscular Volume 85.7 fL (81-99); Mean Platelet Vol. 9.9 fl (6.2-12.0); Monocyte% 6.4 % (0-10); NRBC Flagged by Analyzer 0 % (0-5); Neutrophil # 9.41 X10^3/uL (2.7-7.7); Neutrophil % 75.2 % (47-70); Platelet Count 331 K/mm3 (150-450); RBC Distribution Width CV 14.7 % (11.6-14.6); RBC Distribution Width SD 44.9 fl (35.1-43.9); Red Blood Count 4.82 M/mm3 (4.2-5.4); White Blood Count 12.5 K/mm3 (4.4-11.0)
[2020-04-20 07:15] LABS: Bedside Glucose 98 mg/dL (70-110)
[2020-04-20] MEDS: FLUoxetine 20 MG Capsule PO (08:17)
[2020-04-20] MEDS: buPROPion (XL) 150 MG TABLET.XL PO (08:17)
[2020-04-20] MEDS: Midodrine HCl 5 MG Tablet PO ×3 (08:17→17:11)
[2020-04-20] MEDS: Levothyroxine 150 MCG Tablet PO (08:17)
[2020-04-20] MEDS: dexAMETHasone 2 MG TABLET 6 MG PO (08:17)
[2020-04-20] MEDS: Famotidine 20 MG Tablet PO (08:18)
[2020-04-20] MEDS: Enoxaparin 40 MG/0.4 ML Syringe SC ×2 (08:18→22:01)
--- NOTE | 2020-04-20 10:36 | DCINST_ITS ---
- Discharge Diagnoses Current Active Problems: Current Active and Chronic Problems (Last Updated 04/14/20 @ 10:[address] Opal Peraza MD) Pneumonia due to COVID-19 virus (Acute) COVID-19 virus infection (Acute) Obstructive sleep apnea (Chronic) Wears CPAP Hypothyroidism (Chronic) Diabetes mellitus, type II (Chronic) You will use the following diet at home:: Regular Your food should be the consistency of: Regular Your liquids should be the consistency of: Regular/Thin Discharge Activity: May Not Drive Weight Bearing Status: Weight bearing as tolerated Call your doctor if you observe: Fever of 101 or Higher, Numbness or Tingling, Change in Color, Inability to have a bowel movement, Using more than one pad per hour, Shortness of breath, Dizziness, Fainting spells, Swelling in the ankles, Chest pain, Prolonged hiccoughing, Increased palpitations (irregular heartbeat), Calf discomfort, Uncontrolled pain Additional Instructions: Advised thigh-high ESTER hose patient is awake. Activity modification. If patient continues to have orthostatic hypotension will need for evaluation to rule out renal insufficiency, tilt table test. Allergies/Adverse Reactions: Allergies adhesive tape Allergy (Verified 04/13/20 15:00) BLISTERS/SCARS codeine Allergy (Verified 04/13/20 15:00) Shortness of breath Sulfa (Sulfonamide Antibiotics) Allergy (Verified 04/13/20 15:00) Rash Tetanus Vaccines and Toxoid [Tetanus Vaccines & Toxoid] Allergy (Verified 04/13/20 15:00) Swelling meperidine HCl [From Demerol] Adverse Reaction (Verified 04/13/20 15:00) Itching STERISTRIPS Allergy (Uncoded 04/13/20 15:00) BLISTERS/SCARS Medications to take at Discharge Fluoxetine [Prozac] 20 mg PO BID 06/05/14 Metformin HCl [Metformin ER Osmotic] 1,000 mg PO BID 06/28/18 Famotidine [Pepcid] 20 mg PO DAILY #30 tab 10/08/18 Bupropion HCl [Wellbutrin Xl] 150 mg PO DAILY 11/08/18 Levothyroxine Sodium [Synthroid] 150 mcg PO DAILY 04/13/20 Albuterol IH (ProAir) [Proair Hfa] 2 puff INHALATION Q4H PRN PRN #1 inhaler 04/20/20 Meclizine HCl [Antivert] 12.5 mg PO 4X/DAY PRN PRN #30 tab 04/20/20 Midodrine HCl [Proamatine] 5 mg PO TIDCM #90 tab 04/20/20 dexAMETHasone [Dexamethasone] 6 mg PO DAILY #3 tab 04/20/20 The following prescriptions were given: Meclizine HCl [Antivert] 12.5 mg PO 4X/DAY PRN PRN #30 tab PRN Reason: dizziness Transmission Status: Pending to [facility] dexAMETHasone [Dexamethasone] 6 mg PO DAILY #3 tab Transmission Status: Pending to [facility] Albuterol IH (ProAir) [Proair Hfa] 2 puff INHALATION Q4H PRN PRN #1 inhaler PRN Reason: sob/wheezing Transmission Status: Pending to [facility] Midodrine HCl [Proamatine] 5 mg PO TIDCM #90 tab Transmission Status: Pending to [facility] Primary Care Physician: Diana Martinez DO [Primary Care Provider] - Please follow up with your Primary Care Physician in: in 2 weeks Test Results: Test results from this visit will be discussed in further detail at your follow- up appointment, if applicable. Please Follow Up With: Sim Garcia MD When: as needed
[2020-04-20] MEDS: Meclizine 12.5 MG Tablet PO ×3 (11:36→22:02)
[2020-04-20] MEDS: diazePAM 2 MG Tablet PO (13:18)
--- NOTE | 2020-04-20 14:51 | PN_ITS ---
Patient Problems: Active and Suspected Problems (Last Updated 04/14/20 @ 10:[address] Opal Peraza MD) Pneumonia due to COVID-19 virus (Acute) COVID-19 virus infection (Acute) Reason for Visit: Follow-up for COVID-19 infection with orthostatic hypotension. Objective: Patient feels dizzy and lightheaded on standing up. blood pressure 160/92, heart rate 59 on supine changes to 107/50, heart rate 100 along with the symptoms. Her systolic blood pressure is up after started on midodrine. Patient does not feel comfortable going home. Discharge canceled. Physical exam General: Alert, Oriented x3, Cooperative HEENT: Atraumatic, PERRLA, EOMI, Normocephalic. No nystagmus Oral: No Gingival or Mucosal Lesions/ Ulcerations Neck: Supple, No JVD, Negative Carotid Bruits Lungs: Air entry diminished in bilateral lung bases. No crepitation/rhonchi Cardiovascular: Regular rate, Regular Rhythm, Normal S1, Normal S2, No murmurs Abdomen: Bowel Sounds Present, Soft, Non Tender, Non-Distended : No renal angle tenderness. No suprapubic tenderness. Extremities: No edema, Capillary Refill Less than 3 Seconds Skin: No rashes, No breakdown Musculoskeletal: No Tenderness to Palpation of Joints or Extremities Neurological: Cranial nerves II-XII grossly intact, Deep Tendon Reflexes 2+/4 and Symmetrical, Neuro grossly intact Psych/Mental Status: Normal Affect, Appropriate. Vitals/I&O's: Vital Signs Temp Pulse Resp BP Pulse Ox 97.3 F L 60 16 159/92 H 96 04/20/20 11:37 04/20/20 11:37 04/20/20 11:37 04/20/20 11:37 04/20/20 11:37 Oxygen Flow Rate (L/min) [ 4 AMBULATION with Oxygen] Oxygen Flow Rate (L/min) [At 0 REST on Room Air] Oxygen Flow Rate (L/min) 2 Oxygen Delivery Method Nasal Cannula Weight: 240 lb 3.2 oz Body Mass Index (BMI) 42.8 Finger Stick Blood Glucose 201 Orthostatic Vital Signs Start: 04/14/20 08:11 Freq: Status: Active Protocol: Activity Type Activity Date Activity User E-Sign Co-Sign Detail Recorded Client Recorded Date Recorded By Document 04/20/20 11:36 BDM [id number] 04/20/20 11:37 BD 04/20/20 11:36 Orthostatic Vitals Standing -Blood Pressure (90/60-120/80) 107/58 L -Extremity Use Right Arm -Pulse Rate (60-100) 100 Sitting -Blood Pressure (90/60-120/80) 133/81 H -Extremity Use Right Arm -Pulse Rate (60-100) 70 Lying -Blood Pressure (90/60-120/80) 159/92 H -Extremity Use Right Arm -Pulse Rate (60-100) 59 L Intake and Output for Last 24 Hours 04/18/20 04/19/20 04/20/20 23:59 23:59 23:59 Intake Total 2283.75 / 2283.75 2746.25 / 2946.25 200 / 200 Output Total 500 / 500 1400 / 1400 Balance 1783.75 / 1783.75 2746.25 / 2196.25 -1200 / -1200 Microbiology Past 72 Hours 04/13/20 16:30 Blood Culture (Wb) - Anticubital Left Blood Culture - Final No growth in 5 days. 04/13/20 16:35 Blood Culture (Wb) - Anticubital Right Blood Culture - Final No growth in 5 days. Laboratory Results 04/19/20 17:12: POC Glucose 203 H 04/19/20 22:06: POC Glucose 130 H 04/20/20 06:30: WBC 12.5 H, RBC 4.82, Hgb 13.3, Hct 41.3, MCV 85.7, MCH 27.6, MCHC 32.2, RDW Std Deviation 44.9 H, RDW Coeff of Krista 14.7 H, Plt Count 331, MPV 9.9, Immature Gran % (Auto) 1.400 H, Neut % (Auto) 75.2 H, Lymph % (Auto) 16.7 L , Pike % (Auto) 6.4, Eos % (Auto) 0.1, Baso % (Auto) 0.2, Absolute Neuts (auto) 9.4 H, Absolute Lymphs (auto) 2.09, Nucleated RBC % 0 04/20/20 07:02: POC Glucose 98 Current Medications Acetaminophen (Acetaminophen 325 Mg Tablet) 650 mg PO Q6H PRN PRN PRN Reason: Pain Score 1-10/Temp > 100.7 F Bupropion HCl (Bupropion (Xl) 150 Mg Tablet.Xl) 150 mg PO DAILY [facility] Last Admin: 04/20/20 08:17 Dose: 150 mg Documented by: Dexamethasone (Dexamethasone 2 Mg Tablet) 6 mg PO DAILY [facility] Stop: 04/22/20 10:01 Last Admin: 04/20/20 08:17 Dose: 6 mg Documented by: Dextrose (Dextrose 50%-Water 25 Gm/50 Ml Disp.Syrin) 0 gm IV X1 PRN; Protocol PRN Reason: Hypoglycemia Enoxaparin Sodium (Enoxaparin 40 Mg/0.4 Ml Syringe) 40 mg SC BID [facility] Last Admin: 04/20/20 08:18 Dose: 40 mg Documented by: Famotidine (Famotidine 20 Mg Tablet) 20 mg PO DAILY [facility] Last Admin: 04/20/20 08:18 Dose: 20 mg Documented by: Fluoxetine HCl (Fluoxetine 20 Mg Capsule) 20 mg PO DAILY [facility] Glucagon (Glucagon 1 Mg/Ml Syringe) 1 mg IM .X1 PRN PRN Reason: Hypoglycemia Sodium Chloride () 250 mls @ 15 mls/hr IV .[id number] PRN PRN Reason: Saline Flush Insulin Human Lispro (Insulin Lispro 100 Unit/Ml Insuln.Pen) 0 unit SC ACHS [facility]; Protocol Last Admin: 04/20/20 11:30 Dose: Not Given Documented by: Levothyroxine Sodium (Levothyroxine 150 Mcg Tablet) 150 mcg PO DAILY [facility] Last Admin: 04/20/20 08:17 Dose: 150 mcg Documented by: Meclizine HCl (Meclizine 12.5 Mg Tablet) 12.5 mg PO 4X/DAY [facility] Midodrine (Midodrine Hcl 5 Mg Tablet) 5 mg PO TIDCM [facility] Last Admin: 04/20/20 11:36 Dose: 5 mg Documented by: Ondansetron HCl (Ondansetron 4 Mg/2 Ml Vial) 4 mg IV Q8H PRN PRN PRN Reason: NAUSEA/VOMITING Last Admin: 04/15/20 03:09 Dose: 4 mg Documented by: Psyllium Hydrophilic Mucilloid (Psyllium 1 Packet) 1 packet PO DAILY PRN PRN PRN Reason: Constipation Sodium Chloride (0.9% Saline Lock 10 Ml Syringe) 10 - 40 ml IV UD PRN PRN Reason: SALINE FLUSH Last Admin: 04/18/20 09:54 Dose: 10 ml Documented by: STROKE Vital Signs/Narrative: Vital Signs Temp Pulse Pulse Pulse Pulse Resp BP 04/20/20 11:37 97.3 F L 60 16 159/92 H 04/20/20 11:36 59 L 70 100 04/20/20 11:27 BP BP BP Pulse Ox Pulse Ox Pulse Ox 04/20/20 11:37 96 04/20/20 11:36 159/92 H 133/81 H 107/58 L 04/20/20 11:27 91 85 Medical Necessity - Tobacco Use Smoking Status: Never smoker Tobacco Use: Non-smoker Assessment/Plan All Active Problems (Last Updated 04/14/20 @ 10:[address] Opal Peraza MD) Pneumonia due to COVID-19 virus (Acute) COVID-19 virus infection (Acute) This is a 64 years old female patient presented to the emergency room because of weakness and mild shortness of breath with cough, was diagnosed with COVID-19 on April 02, found to have bilateral extensive pneumonia consistent with COVID- 19 pneumonia and complicated by acute hypoxic respiratory sufficiency. #1 Acute hypoxic respiratory insufficiency due to acute extensive bilateral C OVID-19 pneumonia: Remains on p.o. Decadron, IV remdesivir and subcut Lovenox twice daily. Patient has exertional dyspnea and continues to require to 2-3 L of oxygen. She has been afebrile, no leukocytosis. Lactic acid is back to normal. Blood cultures pending. Seen by ID. CT scan showed no PE. Patient will require NOACs prophylactic dose 2 weeks after discharge. Continue for 1 more week. Patient is not on home oxygen. 04/18: Orthostatic hypotension mainly from volume contraction: IV fluid normal saline 1 L bolus 1000 mill per hour to continue. Avoid antihypertensive medications. 04/19: Patient still has orthostatic hypotension: Started on midodrine 5 mg 3 times daily along with IV fluid 100 mL/h for 1 L. Thigh-high ESTER hose. Chest x-ray portable ordered. On 2 L of oxygen. 04/20: Patient has POTS, postural orthostatic hypotension, tachycardia syndrome probably related to COVID-19 as it is a known complication although uncommon. Patient has positive fluid balance about 9.8 L as per intake output charting. Diazepam 2 mg for test trial. Antivert for symptomatic management. Check TSH and cortisol serum as it might be altered as patient is on Decadron. 2. Type 2 diabetes mellitus: Blood sugar stable. Continue sliding scale, Metformin on hold. Blood sugar is controlled. #4 hypothyroidism: Continue levothyroxine. #5 depression: Stable, continue Wellbutrin and Prozac. #6 obstructive sleep apnea: Continue CPAP with same home settings. #7 DVT prophylaxis: She is on Lovenox twice daily. Microbiology Past 72 Hours 04/13/20 16:30 Blood Culture (Wb) - Anticubital Left Blood Culture - Final No growth in 5 days. 04/13/20 16:35 Blood Culture (Wb) - Anticubital Right Blood Culture - Final No growth in 5 days. Laboratory Results 04/19/20 17:12: POC Glucose 203 H 04/19/20 22:06: POC Glucose 130 H 04/20/20 06:30: WBC 12.5 H, RBC 4.82, Hgb 13.3, Hct 41.3, MCV 85.7, MCH 27.6, MCHC 32.2, RDW Std Deviation 44.9 H, RDW Coeff of Krista 14.7 H, Plt Count 331, MPV 9.9, Immature Gran % (Auto) 1.400 H, Neut % (Auto) 75.2 H, Lymph % (Auto) 16.7 L , Pike % (Auto) 6.4, Eos % (Auto) 0.1, Baso % (Auto) 0.2, Absolute Neuts (auto) 9.4 H, Absolute Lymphs (auto) 2.09, Nucleated RBC % 0 04/20/20 07:02: POC Glucose 98 Clinical Impression(s) from Imaging Studies Chest X-Ray 04/13/20 15:21 IMPRESSION: Multifocal pneumonia. Electronically Signed: Allan Aviles, at 15:47 EST Tel , Service support , Chest CTA 04/13/20 17:08 IMPRESSION: 1. No pulmonary embolism 2. Bilateral extensive bilateral pneumonia. Chest CTA 04/13/20 17:08 IMPRESSION: 1. No pulmonary embolism 2. Bilateral extensive bilateral pneumonia. Active Medications Acetaminophen (Acetaminophen 325 Mg Tablet) 650 mg PO Q6H PRN PRN PRN Reason: Pain Score 1-10/Temp > 100.7 F Bupropion HCl (Bupropion (Xl) 150 Mg Tablet.Xl) 150 mg PO DAILY [facility] Last Admin: 04/18/20 08:49 Dose: 150 mg Documented by: Dexamethasone (Dexamethasone 2 Mg Tablet) 6 mg PO DAILY [facility] Stop: 04/22/20 10:01 Last Admin: 04/18/20 08:49 Dose: 6 mg Documented by: Dextrose (Dextrose 50%-Water 25 Gm/50 Ml Disp.Syrin) 0 gm IV X1 PRN; Protocol PRN Reason: Hypoglycemia Enoxaparin Sodium (Enoxaparin 40 Mg/0.4 Ml Syringe) 40 mg SC BID [facility] Last Admin: 04/18/20 08:49 Dose: 40 mg Documented by: Famotidine (Famotidine 20 Mg Tablet) 20 mg PO DAILY [facility] Last Admin: 04/18/20 08:49 Dose: 20 mg Documented by: Fluoxetine HCl (Fluoxetine 20 Mg Capsule) 20 mg PO BID [facility] Last Admin: 04/18/20 08:49 Dose: 20 mg Documented by: Glucagon (Glucagon 1 Mg/Ml Syringe) 1 mg IM .X1 PRN PRN Reason: Hypoglycemia Sodium Chloride () 250 mls @ 15 mls/hr IV .[id number] PRN PRN Reason: Saline Flush Sodium Chloride () 1,000 mls @ 75 mls/hr IV .[id number] [facility] Stop: 04/18/20 23:34 Last Infusion: 04/18/20 12:56 Dose: 75 mls/hr Documented by: Insulin Human Lispro (Insulin Lispro 100 Unit/Ml Insuln.Pen) 0 unit SC ACHS [facility]; Protocol Last Admin: 04/18/20 10:54 Dose: Not Given Documented by: Levothyroxine Sodium (Levothyroxine 150 Mcg Tablet) 150 mcg PO DAILY [facility] Last Admin: 04/18/20 08:49 Dose: 150 mcg Documented by: Ondansetron HCl (Ondansetron 4 Mg/2 Ml Vial) 4 mg IV Q8H PRN PRN PRN Reason: NAUSEA/VOMITING Last Admin: 04/15/20 03:09 Dose: 4 mg Documented by: Psyllium Hydrophilic Mucilloid (Psyllium 1 Packet) 1 packet PO DAILY PRN PRN PRN Reason: Constipation Sodium Chloride (0.9% Saline Lock 10 Ml Syringe) 10 - 40 ml IV UD PRN PRN Reason: SALINE FLUSH Last Admin: 04/18/20 09:54 Dose: 10 ml Documented by: Inpatient E&M: [id number] Subs Hosp L2
[2020-04-20 15:20] LABS: Bedside Glucose 147 mg/dL (70-110)
[2020-04-20] MEDS: Insulin Lispro 100 UNIT/ML INSULN.PEN SC (17:11)
[2020-04-20 21:06] LABS: Bedside Glucose 182 mg/dL (70-110)
[2020-04-20 22:11] LABS: Bedside Glucose 121 mg/dL (70-110)
[2020-04-21 03:45] VITALS: BP 109/68; PULSE 53; RESP 18; TEMP 36.5; O2SAT 95
[2020-04-21 06:50] LABS: Bedside Glucose 84 mg/dL (70-110)
[2020-04-21 08:18] LABS: Absolute Lymphocyte Count 2.21 X10^3/uL (0.83-4.51); Absolute Neutrophil Count 9.8 X10^3/uL (2.0-7.7); Basophil# 0.01 X10^3/uL; Basophil% 0.1 % (0-1); Eosinophil# 0.02 X10^3/uL; Eosinophils% 0.2 % (0-5); Hematocrit 41.6 % (37-47); Hemoglobin 13.3 g/dL (12.0-15.0); Lymphocyte # 2.21 X10^3/ul (4.0); Lymphocyte % 16.7 % (19-41); Mean Corpuscular Hgb 27.8 pg (27.0-32.0); Mean Corpuscular Volume 86.8 fL (81-99); Mean Platelet Vol. 9.7 fl (6.2-12.0); Monocyte# 1.11 X10^3/uL; Monocyte% 8.4 % (0-10); NRBC Flagged by Analyzer 0 % (0-5); Neutrophil # 9.75 X10^3/uL (2.7-7.7); Neutrophil % 73.8 % (47-70); Platelet Count 298 K/mm3 (150-450); RBC Distribution Width CV 14.9 % (11.6-14.6); Red Blood Count 4.79 M/mm3 (4.2-5.4); White Blood Count 13.2 K/mm3 (4.4-11.0)
[2020-04-21 08:50] VITALS: BP 127/87; PULSE 85; RESP 18; TEMP 36.7; O2SAT 97
[2020-04-21 08:54] LABS: Thyroid Stim Hormone (TSH) 0.14 uIU/mL (0.358-3.74)
[2020-04-21] MEDS: Enoxaparin 40 MG/0.4 ML Syringe SC ×2 (08:54→19:37)
[2020-04-21] MEDS: Levothyroxine 150 MCG Tablet PO (09:05)
[2020-04-21] MEDS: Famotidine 20 MG Tablet PO (09:05)
[2020-04-21] MEDS: buPROPion (XL) 150 MG TABLET.XL PO (09:05)
[2020-04-21] MEDS: Midodrine HCl 5 MG Tablet PO ×3 (09:05→17:27)
[2020-04-21] MEDS: FLUoxetine 20 MG Capsule PO (09:06)
[2020-04-21] MEDS: dexAMETHasone 2 MG TABLET 6 MG PO (09:10)
[2020-04-21] MEDS: Meclizine 12.5 MG Tablet PO ×3 (09:10→19:37)
--- NOTE | 2020-04-21 09:15 | PCM.DC ---
- Discharge Diagnoses Current Active Problems: Current Active and Chronic Problems (Last Updated 04/14/20 @ 10:[address] Opal Peraza MD) Pneumonia due to COVID-19 virus (Acute) COVID-19 virus infection (Acute) Obstructive sleep apnea (Chronic) Wears CPAP Hypothyroidism (Chronic) Diabetes mellitus, type II (Chronic) You will use the following diet at home:: Regular Your food should be the consistency of: Regular Discharge Activity: May Not Drive Weight Bearing Status: Weight bearing as tolerated Call your doctor if you observe: Fever of 101 or Higher, Numbness or Tingling, Change in Color, Inability to have a bowel movement, Using more than one pad per hour, Shortness of breath, Dizziness, Fainting spells, Swelling in the ankles, Chest pain, Prolonged hiccoughing, Increased palpitations (irregular heartbeat), Calf discomfort, Uncontrolled pain Additional Instructions: Patient dizziness currently has resolved. Dizziness or postural orthostatic hypotension tachycardia probably due to COVID-19 if it comes back recurrent, wait for 2 to 3 weeks to resolve spontaneously. If it is still persistent or troublesome, contact PCP for further testing like vestibular testing, tilt table test or I did not have essentially.. Allergies/Adverse Reactions: Allergies adhesive tape Allergy (Verified 04/13/20 15:00) BLISTERS/SCARS codeine Allergy (Verified 04/13/20 15:00) Shortness of breath Sulfa (Sulfonamide Antibiotics) Allergy (Verified 04/13/20 15:00) Rash Tetanus Vaccines and Toxoid [Tetanus Vaccines & Toxoid] Allergy (Verified 04/13/20 15:00) Swelling meperidine HCl [From Demerol] Adverse Reaction (Verified 04/13/20 15:00) Itching STERISTRIPS Allergy (Uncoded 04/13/20 15:00) BLISTERS/SCARS Medications to take at Discharge Fluoxetine [Prozac] 20 mg PO BID 06/05/14 Metformin HCl [Metformin ER Osmotic] 1,000 mg PO BID 06/28/18 Famotidine [Pepcid] 20 mg PO DAILY #30 tab 10/08/18 Bupropion HCl [Wellbutrin Xl] 150 mg PO DAILY 11/08/18 Levothyroxine Sodium [Synthroid] 150 mcg PO DAILY 04/13/20 Albuterol IH (ProAir) [Proair Hfa] 2 puff INHALATION Q4H PRN PRN #1 inhaler 04/20/20 Meclizine HCl [Antivert] 12.5 mg PO 4X/DAY PRN PRN #30 tab 04/20/20 Midodrine HCl [Proamatine] 5 mg PO TIDCM #90 tab 04/20/20 dexAMETHasone [Dexamethasone] 6 mg PO DAILY #3 tab 04/20/20 The following prescriptions were given: Meclizine HCl [Antivert] 12.5 mg PO 4X/DAY PRN PRN #30 tab PRN Reason: dizziness Transmission Status: Received by [facility] dexAMETHasone [Dexamethasone] 6 mg PO DAILY #3 tab Transmission Status: Received by [facility] Albuterol IH (ProAir) [Proair Hfa] 2 puff INHALATION Q4H PRN PRN #1 inhaler PRN Reason: sob/wheezing Transmission Status: Received by [facility] Midodrine HCl [Proamatine] 5 mg PO TIDCM #90 tab Transmission Status: Received by [facility] Primary Care Physician: Diana Martinez DO [Primary Care Provider] - Please follow up with your Primary Care Physician in: in 2 weeks Test Results: Test results from this visit will be discussed in further detail at your follow-up appointment, if applicable. Please Follow Up With: Sim Garcia MD When: as needed
--- NOTE | 2020-04-21 09:17 | DS.PCM_ITS ---
Discharge Date and Diagnosis - Problem List Patient Problems: Active and Suspected Problems (Last Updated 04/14/20 @ 10:[address] Opal Peraza MD) Pneumonia due to COVID-19 virus (Acute) COVID-19 virus infection (Acute) Date of Admission: 04/13/20 Date of Discharge: 04/20/20 - Primary Discharge Diagnosis Acute Problems: Active Problems (Last Updated 04/14/20 @ 10:[address] Opal Peraza MD) Pneumonia due to COVID-19 virus (Acute) Acute hypoxic respiratory insufficiency secondary to COVID-19 pneumonia POTS due to COVID-19 infection - Secondary Discharge Diagnosis Chronic Problems: Chronic Problems (Last Updated 04/14/20 @ 10:[address] Opal Peraza MD) Obstructive sleep apnea (Chronic) Wears CPAP Hypothyroidism (Chronic) Diabetes mellitus, type II (Chronic) Abnormal EKG (Chronic) Postop ekg changes along with elevated troponin 03/11/18 Hospital Course and Treatment Summary of Care Provided: [] This is a 64 years old female patient presented to the emergency room because of weakness and mild shortness of breath with cough, was diagnosed with COVID-19 on April 02, found to have bilateral extensive pneumonia consistent with COVID-19 pneumonia and complicated by acute hypoxic respiratory sufficiency. #1 Acute hypoxic respiratory insufficiency due to acute extensive bilateral COV ID-19 pneumonia: [facility] Was treated with p.o. Decadron, IV remdesivir and subcut Lovenox twice daily. Patient has exertional dyspnea and continues to require to 2-3 L of oxygen. Patient oxygen remains a stable. Afebrile. Initially no leukocytosis but had 13.2 thousand from Decadron. Repeat lactic acid normal. Patient was seen by ID. CTA chest does not show PE but groundglass opacity bilateral extensive suggestive of COVID-19 pneumonia. Patient will require NOACs 2 weeks after discharge. 2. POTS (postural orthostatic hypotension tachycardia syndrome) most probably secondary to COVID-19 pneumonia. Initially patient was volume resuscitated but her dizziness did not improved. Subsequently patient was started on midodrine 5 mg 3 times daily, thigh-high ESTER hose. Avoid antihypertensive medication. POTS is a uncommon complication of COVID-19. Advised to follow-up PCP in 2-3 weeks and if dizziness or postural hypotension recurs, will need thorough work- up at that time. Cortisol is low but patient is on Decadron. TSH low which may be from euthyroid SICK syndrome. 2. Type 2 diabetes mellitus: Blood sugar stable. Continue sliding scale, Metformin on hold. Blood sugar is controlled. #4 hypothyroidism: Continue levothyroxine. #5 depression: Stable, continue Wellbutrin and Prozac. #6 obstructive sleep apnea: Continue CPAP with same home settings. #7 DVT prophylaxis: She is on Lovenox twice daily. Discharge medication reconciliation done. Discharge follow-up instructions completed. Discharge process discussed with the patient and all questions were answered to patient's satisfaction. Patient is discharged on meclizine, midodrine and Decadron and 2 weeks of Eliquis Total time spent, exact 35 minutes on discharge meds reconciliation, examination, coordination of care with nurses and ancillary staff, review of imaging and blood test and discussion with the patient on follow-up instructions Microbiology Past 72 Hours 04/13/20 16:30 Blood Culture (Wb) - Anticubital Left Blood Culture - Final No growth in 5 days. 04/13/20 16:35 Blood Culture (Wb) - Anticubital Right Blood Culture - Final No growth in 5 days. Laboratory Results 04/20/20 11:30: POC Glucose 147 H 04/20/20 17:10: POC Glucose 182 H 04/20/20 21:55: POC Glucose 121 H 04/21/20 06:38: POC Glucose 84 04/21/20 07:54: WBC 13.2 H, RBC 4.79, Hgb 13.3, Hct 41.6, MCV 86.8, MCH 27.8, MCHC 32.0, RDW Std Deviation 47.0 H, RDW Coeff of Krista 14.9 H, Plt Count 298, MPV 9.7, Immature Gran % (Auto) 0.800, Neut % (Auto) 73.8 H, Lymph % (Auto) 16.7 L, [place] % (Auto) 8.4, Eos % (Auto) 0.2, Baso % (Auto) 0.1, Absolute Neuts (auto) 9.8 H, Absolute Lymphs (auto) 2.21, Nucleated RBC % 0 04/21/20 07:54: TSH 0.14 L 04/21/20 07:54: Cortisol 0.90 L 04/21/20 07:59: Sodium 142, Potassium 4.3, Chloride 107, Carbon Dioxide 30.0, Anion Gap 5, BUN 23 H, Creatinine 0.89, Estim Creat Clear Calc 56.60, Est GFR (MDRD) Af Amer 83, Est GFR (MDRD) Non-Af 69, BUN/Creatinine Ratio 26.0 H, Glucose 86, Calcium 8.7, Total Bilirubin 0.60, AST 27, ALT 52, Alkaline Phosphatase 101, Total Protein 6.6, Albumin 2.8 L, Globulin 3.8, Albumin/Globulin Ratio 0.7 L 04/21/20 12:07: POC Glucose 113 H Clinical Impression(s) from Imaging Studies Chest X-Ray 04/13/20 15:21 IMPRESSION: Multifocal pneumonia. Chest CTA 04/13/20 17:08 IMPRESSION: 1. No pulmonary embolism 2. Bilateral extensive bilateral pneumonia. Chest X-Ray 04/19/20 09:49 IMPRESSION: Persistent bilateral patchy infiltrates worse at left lung base although there has been moderate degree of improvement. Further follow-up is recommended. Patient Problems: Active and Suspected Problems (Last Updated 04/14/20 @ 10:[address] Opal Peraza MD) Pneumonia due to COVID-19 virus (Acute) COVID-19 virus infection (Acute) Objective: Patient dizziness and imbalance has improved. She feels much improvement on diazepam. Cortisol level is 0.9 low but that may be from Decadron. TSH 0.14 probably euthyroid sick syndrome. Patient is not showing any signs symptoms of hypothyroidism. Physical exam General: Alert, Oriented x3, Cooperative HEENT: Atraumatic, PERRLA, EOMI, Normocephalic. No nystagmus Oral: No Gingival or Mucosal Lesions/ Ulcerations Neck: Supple, No JVD, Negative Carotid Bruits Lungs: Air entry diminished in bilateral lung bases. No crepitation/rhonchi Cardiovascular: Regular rate, Regular Rhythm, Normal S1, Normal S2, No murmurs Abdomen: Bowel Sounds Present, Soft, Non Tender, Non-Distended : No renal angle tenderness. No suprapubic tenderness. Extremities: No edema, Capillary Refill Less than 3 Seconds Skin: No rashes, No breakdown Musculoskeletal: No Tenderness to Palpation of Joints or Extremities Neurological: Cranial nerves II-XII grossly intact, Deep Tendon Reflexes 2+/4 and Symmetrical, Neuro grossly intact Psych/Mental Status: Normal Affect, Appropriate. - Physical Exam Vitals/I&O's: Vital Signs Temp Pulse Resp BP Pulse Ox 97.4 F L 57 L 16 152/75 H 95 04/20/20 07:07 04/20/20 07:07 04/20/20 07:07 04/20/20 07:07 04/20/20 07:16 Oxygen Flow Rate (L/min) [ 2 AMBULATION with Oxygen] Oxygen Flow Rate (L/min) 2 Oxygen Delivery Method Nasal Cannula Weight: 240 lb 3.2 oz Body Mass Index (BMI) 42.8 Finger Stick Blood Glucose 201 Orthostatic Vital Signs Start: 04/14/20 08:11 Freq: Status: Active Protocol: Activity Type Activity Date Activity User E-Sign Co-Sign Detail Recorded Client Recorded Date Recorded By Document 04/19/20 09:33 [id number] 04/19/20 09:36 HARIS 04/19/20 09:33 Orthostatic Vitals Standing -Blood Pressure (90/60-120/80 mm Hg) 62/32 L -Extremity Use Right Arm -Pulse Rate (60-100 beats/min) 108 H Sitting -Blood Pressure (90/60-120/80 mm Hg) 93/55 L -Extremity Use Right Arm -Pulse Rate (60-100 beats/min) 95 Lying -Blood Pressure (90/60-120/80 mm Hg) 113/63 -Extremity Use Right Arm -Pulse Rate (60-100 beats/min) 64 Intake and Output for Last 24 Hours 04/18/20 04/19/20 04/20/20 23:59 23:59 23:59 Intake Total 2283.75 / 2283.75 2746.25 / 2946.25 200 / 200 Output Total 500 / 500 1400 / 1400 Balance 1783.75 / 1783.75 2746.25 / 2196.25 -1200 / -1200 Microbiology Past 72 Hours 04/13/20 16:30 Blood Culture (Wb) - Anticubital Left Blood Culture - Final No growth in 5 days. 04/13/20 16:35 Blood Culture (Wb) - Anticubital Right Blood Culture - Final No growth in 5 days. Laboratory Results 04/19/20 17:12: POC Glucose 203 H 04/19/20 22:06: POC Glucose 130 H 04/20/20 06:30: WBC 12.5 H, RBC 4.82, Hgb 13.3, Hct 41.3, MCV 85.7, MCH 27.6, MCHC 32.2, RDW Std Deviation 44.9 H, RDW Coeff of Krista 14.7 H, Plt Count 331, MPV 9.9, Immature Gran % (Auto) 1.400 H, Neut % (Auto) 75.2 H, Lymph % (Auto) 16.7 L , [place] % (Auto) 6.4, Eos % (Auto) 0.1, Baso % (Auto) 0.2, Absolute Neuts (auto) 9.4 H, Absolute Lymphs (auto) 2.09, Nucleated RBC % 0 04/20/20 07:02: POC Glucose 98 Current Medications Acetaminophen (Acetaminophen 325 Mg Tablet) 650 mg PO Q6H PRN PRN PRN Reason: Pain Score 1-10/Temp > 100.7 F Bupropion HCl (Bupropion (Xl) 150 Mg Tablet.Xl) 150 mg PO DAILY [facility] Last Admin: 04/20/20 08:17 Dose: 150 mg Documented by: Dexamethasone (Dexamethasone 2 Mg Tablet) 6 mg PO DAILY [facility] Stop: 04/22/20 10:01 Last Admin: 04/20/20 08:17 Dose: 6 mg Documented by: Dextrose (Dextrose 50%-Water 25 Gm/50 Ml Disp.Syrin) 0 gm IV X1 PRN; Protocol PRN Reason: Hypoglycemia Enoxaparin Sodium (Enoxaparin 40 Mg/0.4 Ml Syringe) 40 mg SC BID [facility] Last Admin: 04/20/20 08:18 Dose: 40 mg Documented by: Famotidine (Famotidine 20 Mg Tablet) 20 mg PO DAILY [facility] Last Admin: 04/20/20 08:18 Dose: 20 mg Documented by: Fluoxetine HCl (Fluoxetine 20 Mg Capsule) 20 mg PO BID [facility] Last Admin: 04/20/20 08:17 Dose: 20 mg Documented by: Glucagon (Glucagon 1 Mg/Ml Syringe) 1 mg IM .X1 PRN PRN Reason: Hypoglycemia Sodium Chloride () 250 mls @ 15 mls/hr IV .[id number] PRN PRN Reason: Saline Flush Insulin Human Lispro (Insulin Lispro 100 Unit/Ml Insuln.Pen) 0 unit SC ACHS [facility]; Protocol Last Admin: 04/20/20 07:03 Dose: Not Given Documented by: Levothyroxine Sodium (Levothyroxine 150 Mcg Tablet) 150 mcg PO DAILY [facility] Last Admin: 04/20/20 08:17 Dose: 150 mcg Documented by: Meclizine HCl (Meclizine 12.5 Mg Tablet) 12.5 mg PO 4X/DAY PRN PRN PRN Reason: DIZZINESS Midodrine (Midodrine Hcl 5 Mg Tablet) 5 mg PO TIDCM [facility] Last Admin: 04/20/20 08:17 Dose: 5 mg Documented by: Ondansetron HCl (Ondansetron 4 Mg/2 Ml Vial) 4 mg IV Q8H PRN PRN PRN Reason: NAUSEA/VOMITING Last Admin: 04/15/20 03:09 Dose: 4 mg Documented by: Psyllium Hydrophilic Mucilloid (Psyllium 1 Packet) 1 packet PO DAILY PRN PRN PRN Reason: Constipation Sodium Chloride (0.9% Saline Lock 10 Ml Syringe) 10 - 40 ml IV UD PRN PRN Reason: SALINE FLUSH Last Admin: 04/18/20 09:54 Dose: 10 ml Documented by: Discharge Activity: May Not Drive Weight Bearing Status: Weight bearing as tolerated Call your doctor if you observe: Fever of 101 or Higher, Numbness or Tingling, Change in Color, Inability to have a bowel movement, Using more than one pad per hour, Shortness of breath, Dizziness, Fainting spells, Swelling in the ankles, Chest pain, Prolonged hiccoughing, Increased palpitations (irregular heartbeat), Calf discomfort, Uncontrolled pain Home Medications: Medications to take at Discharge Fluoxetine [Prozac] 20 mg PO BID 06/05/14 Metformin HCl [Metformin ER Osmotic] 1,000 mg PO BID 06/28/18 Famotidine [Pepcid] 20 mg PO DAILY #30 tab 10/08/18 Bupropion HCl [Wellbutrin Xl] 150 mg PO DAILY 11/08/18 Levothyroxine Sodium [Synthroid] 150 mcg PO DAILY 04/13/20 Albuterol IH (ProAir) [Proair Hfa] 2 puff INHALATION Q4H PRN PRN #1 inhaler 04/20/20 Meclizine HCl [Antivert] 12.5 mg PO 4X/DAY PRN PRN #30 tab 04/20/20 Midodrine HCl [Proamatine] 5 mg PO TIDCM #90 tab 04/20/20 dexAMETHasone [Dexamethasone] 6 mg PO DAILY #3 tab 04/20/20 Following Prescriptions Were Given to Patient: Meclizine HCl [Antivert] 12.5 mg PO 4X/DAY PRN PRN #30 tab PRN Reason: dizziness Transmission Status: Received by [facility] dexAMETHasone [Dexamethasone] 6 mg PO DAILY #3 tab Transmission Status: Received by [facility] Albuterol IH (ProAir) [Proair Hfa] 2 puff INHALATION Q4H PRN PRN #1 inhaler PRN Reason: sob/wheezing Transmission Status: Received by [facility] Midodrine HCl [Proamatine] 5 mg PO TIDCM #90 tab Transmission Status: Received by [facility] Primary Care Physician: Diana Martinez DO [Primary Care Provider] - Please follow up with your Primary Care Physician in: in 2 weeks Please Follow Up With: Sim Garcia MD When: as needed Medical Necessity - Tobacco Use Smoking Status: Never smoker Tobacco Use: Non-smoker Meaningful Use Info Meaningful Use Diagnoses (Choose all that apply): None applicable Inpatient E&M: [id number] [facility]
[2020-04-21 09:47] VITALS: O2SAT 95
[2020-04-21 10:46] LABS: ALB/GLOB Ratio 0.7 RATIO (0.9-2.4); AST(SGOT) 27 U/L (15-37); Alanine Aminotransfer ALT/SGPT 52 U/L (13-56); Albumin, Serum 2.8 g/dL (3.2-5.0); Alkaline Phosphatase 101 U/L (45-117); Anion Gap 5 (5-15); BUN 23 mg/dL (7-18); Calcium,Total 8.7 mg/dL (8.5-10.1); Chloride 107 mmol/L (98-107); Creatinine, Serum 0.89 mg/dL (0.55-1.02); EST Glomerular Filtration Rate 69 mL/min (>60); Est Glom Filt Rate - Afr Amer 83 mL/min (>60); Globulin 3.8 g/dL (2.2-4.2); Glucose 86 mg/dL (74-106); Potassium 4.3 mmol/L (3.5-5.1); Protein, Total 6.6 g/dL (6.4-8.2); Sodium Level 142 mmol/L (136-145)
[2020-04-21 12:56] LABS: Bedside Glucose 113 mg/dL (70-110)
[2020-04-21 16:21] LABS: Bedside Glucose 207 mg/dL (70-110)
[2020-04-21] MEDS: Mag Hydrox/Al Hydrox/Simeth 30 ML UDC PO (16:53)
[2020-04-21] MEDS: Insulin Lispro 100 UNIT/ML INSULN.PEN SC (16:54)
[2020-04-21 17:31] VITALS: BP 131/72; PULSE 84; RESP 18; TEMP 36.7; O2SAT 95
[2020-04-21 17:32] VITALS: O2SAT 88; O2SAT 92
--- NOTE | 2020-04-21 21:31 | NURSING ---
2100 Patient discharged to home via . Taken to main entrance in wheelchair with 02 NC @4lpm. has 02 tank in the car. Pts belonging's sent and medications from inpatient pharmacy. Written discharge instructions gone over before discharge by day nurse denies any questions.
[2020-04-25 11:46] LABS: Bedside Glucose 111 mg/dL (70-110)
[2020-04-25 11:46] LABS: Bedside Glucose 114 mg/dL (70-110)
== END 2020-04-21 21:00 | disposition home or self-care (01) | DRG 177 ==
LOC: ED 18:25 → MS2 18:54
PROVIDERS: Hospitalist; Admitting Provider Internal Medicine; Emergency Provider Emergency Medicine; PCP Internal Medicine; Visit Provider Internal Medicine
DX: U07.1 COVID-19 (principal); J12.89 Other viral pneumonia; I49.8 Other specified cardiac arrhythmias; R09.02 Hypoxemia; I10 Essential (primary) hypertension; E11.9 Type 2 diabetes mellitus without complications; E03.9 Hypothyroidism, unspecified; E86.0 Dehydration; G47.33 Obstructive sleep apnea (adult) (pediatric); F32.9 Major depressive disorder, single episode, unspecified; Z86.718 Personal history of other venous thrombosis and embolism; Z79.84 Long term (current) use of oral hypoglycemic drugs; Z79.890 Hormone replacement therapy; Z79.899 Other long term (current) drug therapy
CPT/HCPCS: 36415; 71045; 71275; 80048; 80053; 80076; 81001; 82533; 82962; 83605; 83735; 83880; 84443; 84484; 85025; 85379; 87040; 93005; 97110; 97162; 97530; 97802; 99251; 99285; J7030; J7050; Q9967; A4216; G0463; J2405

== ENCOUNTER → 2020-06-28 14:09 | Outpatient (CLI) | payer SELFPAY ==
--- NOTE | 2020-06-28 14:20 | CT_ITS ---
STUDY: CTA CHEST REASON FOR EXAM: Female, 64 years old. HYPOXIA RADIATION DOSAGE (If Supplied By Facility): CTDIvol = ( 12.65 ) mGy, DLP = ( 522.69 ) mGycm TECHNIQUE: The examination was performed with the intravenous administration of IV 100mL Isovue-370. Post-processing of the angiographic images was performed, with multiplanar reformation and 3D reconstruction. Individualized dose optimization techniques were used for this CT. COMPARISON: Comparison is made with prior study dated 04/13/2020. FINDINGS: Normal enhancement of the main pulmonary artery and right and left pulmonary arteries. Normal enhancement of the bilateral peripheral pulmonary arteries. There is no demonstrated pulmonary embolism. Normal thoracic aorta and visualized great vessels. There is no demonstrated aortic dissection. There are calcifications of the coronary arteries. Normal mediastinum. Normal hilar regions. Normal visualized trachea and bronchi. The lungs are well expanded. The previously seen bilateral groundglass opacities have resolved. Residual 3.5 mm noncalcified nodule in the peripheral anterior aspect of the right lower lobe as seen on axial image #131. Normal pleura. Normal chest wall structures. There are degenerative changes of thoracic spine. Normal visualized upper abdomen. CT/CTA Chest W/WO Contrast IMPRESSION: No evidence of pulmonary embolism. The previously seen diffuse bilateral groundglass appearance of resolved. Residual 3.5 mm noncalcified nodule seen in the peripheral anterior aspect of the right lower lobe as seen on axial image #131. Electronically Signed: Edgar Robert MD at 15:06 EST , Service support ,
[2020-06-28 14:46] LABS: CREATININE FINGERSTICK 1.5 mg/dL (0.55-1.02)
== END ==
PROVIDERS: PCP Internal Medicine; Visit Provider Internal Medicine
DX: R09.02 Hypoxemia (principal)
CPT/HCPCS: 71275; Q9967

== ENCOUNTER → 2020-07-02 09:26 | Outpatient (CLI) | payer SELFPAY ==
--- NOTE | 2020-07-02 13:59 | PFTCOMP_ITS ---
COMPLETE PULMONARY FUNCTION TEST INTERPRETATION Brief HPI: Patient is a 64 year old female, currently under the care of Dr. Martinez, who presents to [facility] for complete pulmonary function tests secondary to diagnosis of asthma. Respiratory therapist reports good effort and reproducible results. Interpretation: Forced expiration spirometry shows no large airways obstructive ventilatory defect with an FEV1 of 106% predicted. There is no significant bronchodilator response by strict ATS criteria. Spirograms are of good quality and plateau normally. The respiratory flow volume loop shows a normal pattern. Lung volumes by body plethysmography show a normal total lung capacity at 4.56 L, 93% predicted. All other lung volumes are within normal limits. Diffusion capacity by carbon monoxide is at the lower limit of normal at 75% predicted. The airway resistance is normal. No previous pulmonary function tests were available for review. Impression: These pulmonary function tests are within normal limits. Diffusion capacity is at the lower limit of normal, so early pulmonary vascular disorder cannot be excluded by this testing.
== END ==
PROVIDERS: PCP Internal Medicine; Referring Provider Internal Medicine; Visit Provider Internal Medicine
DX: J45.20 Mild intermittent asthma, uncomplicated (principal)
CPT/HCPCS: 94060; 94726; 94729

== ENCOUNTER 2020-07-12 16:17 | Outpatient (RCR) | payer MEDICARE, SELFPAY ==
[2020-07-06 08:52] VITALS: BMI 42.9
[2020-07-12] MEDS: COVID-19 VACC, MRNA(PFIZER)/PF 30 MCG/0.3 ML SYRINGE IM (15:46)
[2020-08-02] MEDS: COVID-19 VACC, MRNA(PFIZER)/PF 30 MCG/0.3 ML SYRINGE IM (14:57)
== END 2020-10-09 23:59 ==
LOC: IMMUN 16:17
PROVIDERS: PCP Internal Medicine; Referring Provider Family Medicine; Visit Provider Family Medicine
DX: Z23 Encounter for immunization (principal)
CPT/HCPCS: 0001A; 0002A; 91300

== ENCOUNTER 2020-08-05 20:39 | Emergency (ER) | payer OTHER, SELFPAY ==
[2020-07-06 08:52] VITALS: BMI 42.9
[2020-08-05 20:40] VITALS: BP 151/100; PULSE 98; RESP 16; TEMP 36.3; O2SAT 97; BMI 41.3
--- NOTE | 2020-08-05 21:10 | RAD_ITS ---
HISTORY: Injury/Pain COMPARISON: None FINDINGS: # of images incl. paperwork: 3 XR Wrist Min 3 Views : Right wrist No fracture or subluxation. No osseous or soft tissue abnormality. The carpal bones have a normal appearance. The distal radius and ulna are unremarkable. No evidence of radiopaque foreign body. RAD/Wrist min 3 Views IMPRESSION: Normal Right wrist. at 2224 Reported and signed by: Nate Doan MD Electronically Signed: Nate Doan MD at 22:23 EDT Tel , Service support ,
--- NOTE | 2020-08-05 22:23 | ED.DCSUM_ITS ---
- ER Visit Summary Date of Service: 08/05/20 Chief Complaint: Right wrist injury History of Present Illness: The patient is a 64 F who presents with right wrist injury that occurred today. Patient states she slipped on some turkey grease and landed on her right wrist. Patient is unsure if she landed on her outstretched hand or how she landed. Patient states her pain is over the radial aspect of the right wrist. Patient admits to some swelling over the distal radius. Patient describes her pain is aching. Patient states nothing makes her pain worse and nothing makes it better. Patient denies any paresthesias or weakness. Patient denies any head injury or loss of consciousness. Patient denies any other injuries. Physical Examination: Vital signs are stable. Patient is afebrile. Patient is in no acute distress. Musculoskeletal exam reveals tenderness over the radial aspect of the right distal radius and wrist. There is some mild edema. There is no bony crepitance or step-off. There is no deformity noted. There is also some tenderness over the first metacarpal and thumb. There is no deformity noted. Range of motion was limited in all motions of the right wrist and right thumb secondary to pain. Sensation was intact to light touch in the radial, median, and ulnar areas. Strength 5/5 in the radial, median, and ulnar areas. Radial pulses are equal bilaterally. Test Results: X-rays of the right wrist were obtained. There are [3] views. On my interpretation, there is no acute fracture. There is no dislocation. There is [some mild] soft tissue swelling. Radiologist also interpreted the x-rays and agrees. Emergency Department Course and Treatment: Since there was some tenderness over the anatomic snuffbox and radial aspect of the right wrist, patient was placed in a thumb spica splint. She was advised that she needs to follow-up for reevaluation in 1 to 2 weeks. Patient was advised that there could be an occult fracture that is not seen initially. Patient was instructed to return if worse in any way. Patient understood and was agreeable with the plan. All questions were answered. Disposition: Discharge home Impression: 1. Right wrist sprain This note was generated with [employer] software. It may contain incorrect words, spelling, and punctuation that were not noted in review of the chart prior to signing ED Disposition - Plan for ED Patient: Disposition: Home or Assisted Living Diagnosis: Right wrist sprain Instructions: ED Wrist Sprain Referrals: Diana Martinez DO [Primary Care Provider] - 1-2 Weeks
[2020-08-05 23:39] VITALS: BP 144/88; PULSE 78; RESP 16; O2SAT 96
== END 2020-08-05 23:41 | disposition home or self-care (01) ==
PROVIDERS: Emergency Provider Emergency Medicine; PCP Internal Medicine
DX: S63.501A Unspecified sprain of right wrist, initial encounter (principal); W01.0XXA Fall on same level from slipping, tripping and stumbling without subsequent striking against object, initial encounter; Y93.9 Activity, unspecified; Y92.9 Unspecified place or not applicable; Y99.9 Unspecified external cause status; E11.9 Type 2 diabetes mellitus without complications; E03.9 Hypothyroidism, unspecified; F32.9 Major depressive disorder, single episode, unspecified; Z79.84 Long term (current) use of oral hypoglycemic drugs; Z79.899 Other long term (current) drug therapy
CPT/HCPCS: 73110; 99282

== ENCOUNTER → 2022-04-07 | Outpatient (CLI) | payer MEDICARE, SELFPAY ==
--- NOTE | 2022-04-07 09:22 | US_ITS ---
STUDY: ABDOMINAL ULTRASOUND - RIGHT UPPER QUADRANT REASON FOR VISIT: Female, 66 years old Fatty liver TECHNIQUE: Ultrasound evaluation of the right upper quadrant was performed with real-time and static nunez-scale imaging. TECHNICAL QUALITY: Adequate. COMPARISON: None. FINDINGS: Liver: The liver measures 16.3 cm. There is increased echogenicity consistent with fatty infiltration. The bile ducts are within normal limits. There is hepatic color flow. The direction of portal flow is hepatopetal. There is no demonstrated mass lesion. Gallbladder: The patient is status post cholecystectomy. Common Bile Duct (C.B.D.): The common bile duct measures 8.1 mm. Pancreas: Normal size of the head, body and tail of the pancreas. There is normal echogenicity of the pancreas. There is no demonstrated pancreatic mass or cyst. Right Kidney: Normal size of the right kidney. The right kidney measures 12.6 cm x 4.9 cm x 4.7 cm. Normal renal cortex. The right cortex measures 1.6 cm. There is no demonstrated renal mass or cyst. There is no right hydronephrosis. US/Abdomen Limited IMPRESSION: Fatty infiltration of the liver. Status post cholecystectomy. Electronically Signed: Edgar Robert MD at 14:35 EST ,
--- NOTE | 2022-04-07 09:23 | US_ITS ---
STUDY: ABDOMINAL ULTRASOUND - ELASTOGRAPHY REASON FOR VISIT: Female, 66 years old. Fatty infiltration of the liver. TECHNIQUE: Liver stiffness measurements were obtained on a [employer] RS 85 ultrasound machine using a CA 1-7 probe following the SRU guidelines. 3 measurements were obtained using a 2-D-SWE method. The IQR/M was 14% suggesting a quality data set. TECHNICAL QUALITY: Adequate. COMPARISON: Comparison is made with prior sonogram done earlier today. FINDINGS: Liver: Fatty infiltration of the liver. Median liver stiffness measured 17 kPa. US/Elastography Parenchyma/Organ IMPRESSION: Liver stiffness measures 17 kPa compatible with F3-F4 (Moderate to severe liver fibrosis) Metavir score. Electronically Signed: Edgar Robert MD at 14:36 EST ,
== END | disposition home or self-care (01) ==
LOC: US 09:21
PROVIDERS: PCP Internal Medicine; Referring Provider Internal Medicine; Visit Provider Internal Medicine
DX: K76.0 Fatty (change of) liver, not elsewhere classified (principal)
CPT/HCPCS: 76705; 76981

== ENCOUNTER → 2022-07-03 | Outpatient (CLI) | payer MEDICARE, SELFPAY ==
[2022-07-03 16:47] LABS: Erythrocyte Sedimentation Rate 7 mm/hr (0-30)
[2022-07-03 16:50] LABS: Absolute Lymphocyte Count 2.33 X10^3/uL (0.83-4.51); Absolute Neutrophil Count 4.9 X10^3/uL (2.0-7.7); Basophil# 0.04 X10^3/uL; Basophil% 0.5 % (0-1); Eosinophils% 3.7 % (0-5); Hematocrit 42.1 % (37-47); Lymphocyte # 2.33 X10^3/ul (0.83-4.51); Lymphocyte % 28.4 % (19-41); Mean Corp Hgb Conc 33.3 g/dL (32-36); Mean Corpuscular Hgb 29.9 pg (27.0-32.0); Mean Corpuscular Volume 89.8 fL (81-99); Mean Platelet Vol. 10.7 fl (6.2-12.0); Monocyte# 0.62 X10^3/uL; Monocyte% 7.6 % (0-10); NRBC Flagged by Analyzer 0 % (0-5); Neutrophil # 4.89 X10^3/uL (2.7-7.7); Neutrophil % 59.6 % (47-70); Platelet Count 265 K/mm3 (150-450); RBC Distribution Width SD 38.8 fl (35.1-43.9); Red Blood Count 4.69 M/mm3 (4.2-5.4); White Blood Count 8.2 K/mm3 (4.4-11.0)
[2022-07-03 16:52] LABS: International Normalized Ratio 1.2; Prothrombin Time (Protime)PT. 14.4 SECONDS (11.7-14.9)
[2022-07-03 17:05] LABS: ALB/GLOB Ratio 0.9 RATIO (0.9-2.4); AST(SGOT) 21 U/L (15-37); Alanine Aminotransfer ALT/SGPT 25 U/L (13-56); Albumin, Serum 3.4 g/dL (3.2-5.0); Alkaline Phosphatase 83 U/L (45-117); Anion Gap 8 (5-15); BUN 16 mg/dL (7-18); BUN/Creat Ratio 17.7 RATIO (10-20); Calcium,Total 8.9 mg/dL (8.5-10.1); Chloride 106 mmol/L (98-107); EST Glomerular Filtration Rate 67 mL/min (>60); Est Glom Filt Rate - Afr Amer 81 mL/min (>60); Ferritin 163 ng/mL (8-252); Globulin 3.6 g/dL (2.2-4.2); Glucose 83 mg/dL (74-106); LDH 166 U/L (84-246); Potassium 3.8 mmol/L (3.5-5.1); Sodium Level 141 mmol/L (136-145)
[2022-07-03 17:07] LABS: Hemoglobin A1c 4.5 % (3.8-5.6)
[2022-07-03 17:12] LABS: Ammonia < 10.0 umol/L (11-32)
[2022-07-07 12:08] LABS: Anti-Centromere B Ab <0.2 AI (0.0-0.9); Anti-Chromatin <0.2 AI (0.0-0.9); Anti-Jo <0.2 AI (0.0-0.9); Anti-Scleroderma-70 AB <0.2 AI (0.0-0.9); RNP Ab <0.2 AI (0.0-0.9); SJOGREN'S Anti-SS-A test < 0.2 AI (0.0-0.9); SJOGREN'S Anti-SS-B test < 0.2 AI (0.0-0.9); Smith Ab <0.2 AI (0.0-0.9)
[2022-07-07 18:51] LABS: Anti-Mitochondrial AB <20.0 Units (0.0-20.0); Anti-dsDNA Ab <1 IU/mL (0-9)
[2022-07-08 15:09] LABS: Angiotensin Convert Enzyme 104 U/L (14-82); Ceruloplasmin 31.2 mg/dL (19.0-39.0); Cytoplasmic Ab (C-ANCA) <1:20 titer (Neg:<1:20)
[2022-07-08 15:19] LABS: Anti-Smooth Muscle ABS 4 Units (0-19); Copper, Serum or Plasma 156 ug/dL (80-158); Haptoglobin 206 mg/dL (37-355); Perinuclear Ab (P-ANCA) <1:20 titer (Neg:<1:20)
== END | disposition home or self-care (01) ==
LOC: LAB 15:34
PROVIDERS: PCP Internal Medicine; Visit Provider Nurse Practitioner Adult Health
DX: K76.0 Fatty (change of) liver, not elsewhere classified (principal); E11.69 Type 2 diabetes mellitus with other specified complication; R94.31 Abnormal electrocardiogram [ECG] [EKG]
CPT/HCPCS: 36415; 80053; 82140; 82164; 82390; 82525; 82728; 83010; 83036; 83516; 83615; 85025; 85610; 85652; 86140; 86225; 86235; 86256

== ENCOUNTER → 2022-07-15 | Outpatient (CLI) | payer MEDICARE, SELFPAY ==
--- NOTE | 2022-07-15 08:42 | US_ITS ---
STUDY: ABDOMINAL ULTRASOUND - ELASTOGRAPHY REASON FOR VISIT: Female, 66 years old. NAFLD TECHNIQUE: Liver stiffness measurements were obtained on a [employer] RS 85 ultrasound machine using a CA 1-7 probe following the SRU guidelines. 3 measurements were obtained using a 2-D-SWE method. TheIQR/M was 12% suggesting a quality data set. TECHNICAL QUALITY: Adequate. COMPARISON: Comparison is made with prior study done earlier today and prior examination of April 07, 2022. FINDINGS: Liver: Fatty infiltration of the liver. Median liver stiffness measured 10.3 kPa. US/Elastography Parenchyma/Organ IMPRESSION: Liver stiffness measures 10.3 kPa compatible with F2-F3 (Mild to moderate liver fibrosis) Metavir score. Electronically Signed: Edgar Robert MD at 10:35 EDT ,
--- NOTE | 2022-07-15 08:42 | US_ITS ---
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 History of prior cholecystectomy. TECHNIQUE: Ultrasound evaluation of the right upper quadrant was performed with real-time and static nunez-scale imaging. TECHNICAL QUALITY: Adequate. COMPARISON: Comparison is made with prior study dated April 07, 2022. FINDINGS: Liver: The liver measures 16 cm. There is increased echogenicity consistent with fatty infiltration. The bile ducts are within normal limits. There is hepatic color flow. The direction of portal flow is hepatopetal. There is no demonstrated mass lesion. Gallbladder: The patient is status post cholecystectomy. Common Bile Duct (C.B.D.): The common bile duct is mildly dilated and measures 9 mm. Pancreas: Normal size of the head, body and tail of the pancreas. There is normal echogenicity of the pancreas. There is no demonstrated pancreatic mass or cyst. Right Kidney: Normal size of the right kidney. The right kidney measures 11.2 cm x 4.8 cm x 4.6 cm. Normal renal cortex. The right cortex measures 1.3 cm. There is no demonstrated renal mass or cyst. There is no right hydronephrosis. US/Abdomen Limited IMPRESSION: Fatty infiltration of the liver. Status post cholecystectomy. Electronically Signed: Edgar Robert MD at 10:33 EDT ,
== END | disposition home or self-care (01) ==
PROVIDERS: PCP Internal Medicine; Visit Provider Nurse Practitioner Adult Health
DX: K76.0 Fatty (change of) liver, not elsewhere classified (principal)
CPT/HCPCS: 76705; 76981

== ENCOUNTER → 2022-07-23 | Outpatient (CLI) | payer MEDICARE, SELFPAY ==
[2022-07-26 06:07] LABS: Immunoglobulin A 150 mg/dL (87-352); Immunoglobulin G 681 mg/dL (586-1602); Immunoglobulin G, Subclass 1 275 mg/dL (248-810); Immunoglobulin G, Subclass 2 256 mg/dL (130-555); Immunoglobulin G, Subclass 3 84 mg/dL (15-102); Immunoglobulin G, Subclass 4 2 mg/dL (2-96); Immunoglobulin M 134 mg/dL (26-217)
[2022-07-26 09:00] LABS: Immunoglobulin E 48 IU/mL (6-495)
== END | disposition home or self-care (01) ==
LOC: LAB 11:11
PROVIDERS: PCP Internal Medicine; Visit Provider Nurse Practitioner Adult Health
DX: R76.8 Other specified abnormal immunological findings in serum (principal)
CPT/HCPCS: 36415; 82784; 82785; 82787

== ENCOUNTER 2022-07-27 10:13 | Emergency (ER) | payer MEDICARE, SELFPAY ==
[2022-07-27 10:14] VITALS: BP 132/77; PULSE 104; RESP 22; TEMP 37.2; O2SAT 100; BMI 32.7
[2022-07-27 10:24] VITALS: O2SAT 97
--- NOTE | 2022-07-27 10:27 | RAD_ITS ---
INDICATION: cough EXAMINATION/TECHNIQUE: X-RAY - XR Chest 1 View COMPARISON: 04/19/2020 FINDINGS: LINES/DEVICES: None. LUNGS: No consolidation, edema or effusion. No pneumothorax. Previously visualized infiltrates resolved. MEDIASTINUM AND CARDIOVASCULAR STRUCTURES: Cardiac silhouette not enlarged. Central airways and mediastinal contour are unremarkable. BONES AND SOFT TISSUES: Status post left shoulder reverse arthroplasty. Moderate joint space narrowing right glenohumeral joint and moderate right and left acromioclavicular hypertrophy. RAD/Chest 1 View (Portable) IMPRESSION: No radiographic evidence of acute cardiopulmonary disease. Electronically Signed: Gage Walton MD, RICARDO at 10:54 EDT ,
--- NOTE | 2022-07-27 10:27 | EKG12_ITS ---
Test Reason : SOB Blood Pressure : / mmHG Vent. Rate : 095 BPM Atrial Rate : 095 BPM P-R Int : 156 ms QRS Dur : 076 ms QT Int : 352 ms P-R-T Axes : 074 011 078 degrees QTc Int : 442 ms Sinus rhythm with marked sinus arrhythmia with Premature supraventricular complexes Otherwise normal ECG Confirmed by AMMY BOOKER, WILLARD ([id number]), features editor DAREK WARNER ([id number]) on 07/29/2022 8:29:55 AM Referred By: ANICETO Confirmed By:WILLARD GIMENEZ MD
--- NOTE | 2022-07-27 10:29 | EX.ED.DYSGE1 ---
HPI History of Present Illness Chief Complaint: Shortness of Breath Informant: patient Onset/Context/Timing Onset: Days (5 days) Context: Gradual Onset Narrative Narrative: Patient presents with 5-day history of shortness of breath, cough, body aches, headache. She states at night her temperature will get up to 101.3. She states her symptoms feel similar to when she had COVID previously. She has not taken a COVID test. She was recently diagnosed with liver disorder and was started on Ursodiol. She does state that the side effects of this medication are consistent with what she is experiencing also. [facility] Medical History Abnormal EKG Anemia Asthma BPV (benign positional vertigo) Depression Diabetes mellitus, type II DVT (deep vein thrombosis) in Edema Elevated liver enzymes Fatty liver GERD (gastroesophageal reflux disease) Hormone imbalance Hot flashes HTN (hypertension) Hypocalcemia Hypothyroidism Hypoxia Obstructive sleep apnea Pure hypercholesterolemia, unspecified Sciatica Staph infection Syncope Vitamin D deficiency Home Medications fluoxetine 20 mg capsule 20 mg PO BID antidepressant 06/05/14 [History Last Taken 04/13/20] metformin 500 mg tablet,extended release 24hr 1,000 mg PO BID dm 06/28/18 [History Last Taken 04/13/20] levothyroxine 150 mcg tablet 150 mcg PO DAILY thyroid 04/13/20 [History Last Taken 04/13/20] albuterol sulfate 90 mcg/actuation aerosol inhaler 2 puff inhalation Q4H PRN PRN sob/wheezing ##1 04/20/20 [Rx Last Taken Unknown] metoprolol tartrate 50 mg tablet 50 mg PO DAILY 04/29/22 [History Last Taken Unknown] omeprazole magnesium 20 mg tablet,delayed release (Prilosec OTC) 20 mg PO DAILY 04/29/22 [History Last Taken Unknown] semaglutide 14 mg tablet (Rybelsus) 14 mg PO DAILY 04/29/22 [History Last Taken Unknown] ursodiol 250 mg tablet 250 mg PO BID #180 tabs 07/22/22 [Rx Last Taken Unknown] nirmatrelvir 300 mg (150 mg x2)-ritonavir 100 mg tablet,dose pack(EUA) (Paxlovid) See Rx Instructions PO .COMPLEX #30 tabs 07/27/22 [Rx Last Taken Unknown] Allergy/AdvReac Type Severity Reaction Status Date / Time Acrylic Acid and Acrylates Allergy Other Verified 07/27/22 10:14 [steri-strips (acrylate)] adhesive tape Allergy BLISTERS/SC Verified 07/27/22 10:14 ARS codeine Allergy Shortness Verified 07/27/22 10:14 of breath Sulfa (Sulfonamide Allergy Rash Verified 07/27/22 10:14 Antibiotics) Tetanus Vaccines and Toxoid Allergy Swelling Verified 07/27/22 10:14 [Tetanus Vaccines & Toxoid] meperidine HCl [From Demerol] AdvReac Itching Verified 07/27/22 10:14 Family History Mother Carotid stenosis Hx of CABG Heart disease CHF Father Diabetes Surgical History History of cholecystectomy History of gastric bypass History of hemiarthroplasty of left shoulder (03/12/18) History of hysterectomy History of tonsillectomy History of umbilical hernia repair Humeral head fracture Status post reverse total shoulder replacement Social History Smoking Status: Never smoker alcohol intake: never substance use type: does not use caffeine: Yes Type: carbonated beverages Number of servings: 3 ROS ROS ED Constitutional Constitutional ED: Reports fever(s); Denies chills Eyes Eyes: Denies change in vision or discharge from eye(s) ENT ENT ED: Reports sore throat; Denies discharge from eye(s) or rhinorrhea Cardiovascular Cardiovascular: Reports chest pain; Denies palpitations Respiratory/Chest Respiratory/Chest: Reports cough and dyspnea Gastrointestinal Gastrointestinal: Denies abdominal pain, diarrhea, nausea or vomiting Genitourinary Genitourinary ED: Denies dysuria Musculoskeletal Musculoskeletal: Reports myalgias; Denies back pain or extremity pain Integumentary Denies Abrasions or rash Neurologic Neurologic: Reports headache(s); Denies weakness Allergic/Immunologic Allergic/Immunologic ED: Denies lip swelling or urticaria EXAM Physical Exam Const Vital Signs: 07/27/22 10:14 07/27/22 10:24 Temperature 99 F Temperature Source Temporal Pulse Rate 104 H Respiratory Rate 22 H Respiratory Effort Normal Short of Breath Respiratory Pattern Normal Blood Pressure 132/77 H Blood Pressure Mean 95 Pulse Ox 100 Oxygen Delivery Method Room Air Room Air Positive well nourished and well developed General Appearance ED: well developed HEENT Reports normocephalic and head/scalp atraumatic Eyes PERRL and EOMs intact bilaterally Neck supple Chest Wall inspection of chest normal and palpation of chest normal Resp normal respiratory effort and clear to auscultation bilaterally Cardio regular rate and regular rhythm GI normal to inspection, nondistended, normoactive bowel sounds Palpation: soft Extremity normal to inspection Neuro oriented x3 and no sensory deficits noted Sensorium / Orientation: alert Motor Exam: strength 5/5 throughout Psych mental status grossly normal Skin no rashes or lesions noted MDM MDM MDM Narrative Medical decision making narrative: Patient was on night monitor. EKG obtained to evaluate for cardiac arrhythmia/ischemia. Chest x-ray obtained to evaluate for acute lung pathology, cardiac size, or mediastinal abnormality. Labwork obtained to evaluate for leukocytosis, anemia, and electrolyte derangement. Swab for COVID and influenza obtained. Lab Data Attestation: I reviewed the patient's lab results. Labs: Laboratory Results - last 24 hr 07/27/22 07/27/22 07/27/22 10:37 10:37 10:37 WBC 18.5 H RBC 4.38 Hgb 13.2 Hct 38.4 MCV 87.7 MCH 30.1 MCHC 34.4 RDW Std Deviation 40.8 RDW Coeff of Krista 12.7 Plt Count 180 MPV 9.8 Immature Gran % (Auto) 0.400 Neut % (Auto) 88.7 H Lymph % (Auto) 5.5 L [place] % (Auto) 4.1 Eos % (Auto) 1.1 Baso % (Auto) 0.2 Absolute Neuts (auto) 16.4 H Absolute Lymphs (auto) 1.02 Nucleated RBC % 0 D-Dimer Quant (PE/DVT) 0.53 H* Sodium 137 Potassium 3.5 Chloride 105 Carbon Dioxide 24.0 Anion Gap 8 BUN 15 Creatinine 0.90 Estim Creat Clear Calc 54.53 Est GFR (MDRD) Af Amer 81 Est GFR (MDRD) Non-Af 67 BUN/Creatinine Ratio 16.7 Glucose 110 H Calcium 8.9 Troponin I High Sens 11 Radiography Chest X-Ray - ED: 1 View, Read by ED Physician, Normal, Heart, Lungs, Mediastinum and No Infiltrates Diagnostic Testing: Clinical Impression(s) from Imaging Studies Chest X-Ray 07/27/22 10:27 IMPRESSION: No radiographic evidence of acute cardiopulmonary disease. Electronically Signed: Gage Walton MD, RICARDO at 10:54 EDT , EKG Initial EKG: Attestation: I personally reviewed and interpreted this EKG as follows: Interpretation: Sinus Rhythm (Sinus at 95 with no acute ischemia.) Differential Diagnosis Chest pain/SOB: pulmonary embolism Reason(s) PE less likely: Positive for D-Dimer negative and not hypoxic and ACS ACS: Positive for no evidence of ACS based on cardiac biomarkers and EKG without ischemia Treatment and Re-Evaluation :: Swab for COVID is positive. Influenza test is negative. CBC reveals a white count of 18.5 with left shift. Chemistry studies unremarkable. Troponin is normal. D-dimer is 0.53, normal when age-adjusted. Chest x-ray per my interpretation reveals no focal infiltrate. Radiology interpretation is reviewed. Test results are discussed with the patient. She is a candidate for Paxlovid. I did review her current medications and see no significant interactions. I will write her for a course of Paxlovid and return instructions of been provided. Patient is comfortable this plan. Discharge Plan Triage Chief Complaint: Shortness of Breath ED Provider: Yessica Foster Dx/Rx/DC Orders Clinical Impression: COVID-19 Instructions: Coronavirus Disease 2019 (COVID-19): Overview, Coronavirus Disease 2019 (COVID-19): Caring for Yourself or Others Prescriptions: New Paxlovid (EUA) 300 mg (150 mg x 2)-100 mg tablets,dose pack See Rx Instructions .ROUTE .COMPLEX Qty: 30 0RF Rx Instructions: take TWO 150 mg tablets of nirmatrelvir with ONE 100 mg tablet of ritonavir twice daily for 5 days No Action metoprolol tartrate 50 mg tablet 50 mg PO DAILY Rybelsus 14 mg tablet 14 mg PO DAILY omeprazole magnesium [Prilosec OTC] 20 mg tablet,delayed release (DR/EC) 20 mg PO DAILY fluoxetine 20 MG capsule 20 mg PO BID metformin 500 MG tablet extended release 24hr 1,000 mg PO BID levothyroxine 150 MCG tablet 150 mcg PO DAILY albuterol sulfate 1 PUFF inhaler 2 puff INHALATION Q4H PRN PRN (Reason: sob/wheezing) Qty: 1 0RF ursodiol 250 mg tablet 250 mg PO BID Qty: 180 3RF Primary Care Provider: Diana Martinez Referrals: Diana Martinez DO [Primary Care Provider] - 1-2 Weeks Disposition Disposition: Home, Self Care
[2022-07-27 10:43] LABS: Absolute Lymphocyte Count 1.02 X10^3/uL (0.83-4.51); Absolute Neutrophil Count 16.4 X10^3/uL (2.0-7.7); Basophil# 0.03 X10^3/uL; Basophil% 0.2 % (0-1); Eosinophils% 1.1 % (0-5); Hematocrit 38.4 % (37-47); Hemoglobin 13.2 g/dL (12.0-15.0); Lymphocyte # 1.02 X10^3/ul (0.83-4.51); Lymphocyte % 5.5 % (19-41); Mean Corp Hgb Conc 34.4 g/dL (32-36); Mean Corpuscular Hgb 30.1 pg (27.0-32.0); Mean Corpuscular Volume 87.7 fL (81-99); Mean Platelet Vol. 9.8 fl (6.2-12.0); Monocyte# 0.75 X10^3/uL; Monocyte% 4.1 % (0-10); NRBC Flagged by Analyzer 0 % (0-5); Neutrophil # 16.39 X10^3/uL (2.7-7.7); Neutrophil % 88.7 % (47-70); Platelet Count 180 K/mm3 (150-450); RBC Distribution Width CV 12.7 % (11.6-14.6); RBC Distribution Width SD 40.8 fl (35.1-43.9); Red Blood Count 4.38 M/mm3 (4.2-5.4); White Blood Count 18.5 K/mm3 (4.4-11.0)
[2022-07-27 10:55] LABS: D-Dimer Quantitative (DVT/PE) 0.53 FEU/ug/m (0.27-0.49)
[2022-07-27 11:03] LABS: Anion Gap 8 (5-15); BUN 15 mg/dL (7-18); BUN/Creat Ratio 16.7 RATIO (10-20); Calcium,Total 8.9 mg/dL (8.5-10.1); Chloride 105 mmol/L (98-107); EST Glomerular Filtration Rate 67 mL/min (>60); Est Glom Filt Rate - Afr Amer 81 mL/min (>60); Estimated Creatinine Clearance 54.53 ml/min; Glucose 110 mg/dL (74-106); Potassium 3.5 mmol/L (3.5-5.1); Sodium Level 137 mmol/L (136-145); Troponin-I HS 11 pg/mL (3.0-54.0)
[2022-07-27 11:46] VITALS: BP 110/64; PULSE 91; RESP 14; O2SAT 97
== END 2022-07-27 11:54 | disposition home or self-care (01) ==
PROVIDERS: Emergency Provider Emergency Medicine; PCP Internal Medicine; Visit Provider Emergency Medicine
DX: U07.1 COVID-19 (principal); E11.9 Type 2 diabetes mellitus without complications; I10 Essential (primary) hypertension; Z79.84 Long term (current) use of oral hypoglycemic drugs; Z79.899 Other long term (current) drug therapy
CPT/HCPCS: 71045; 80048; 84484; 85025; 85379; 87428; 93005; 99283

== ENCOUNTER → 2022-08-07 | Outpatient (CLI) | payer MEDICARE, SELFPAY ==
--- NOTE | 2022-08-07 13:08 | MRI_ITS ---
EXAM: MR MRCP W/O Contrast HISTORY: positive atypical p-ANCA, NAFLD TECHNIQUE: MR MRCP W/O Contrast COMPARISON: None. LIMITATIONS: None. FINDINGS: No focal liver lesions. Fatty infiltration of the liver. The gallbladder has been removed. The common bile duct is normal in caliber after cholecystectomy measuring up to 7 - 8 mm in diameter. No common duct stone identified. The spleen is not enlarged. No pancreatic lesions identified. No adrenal nodules. No hydronephrosis. Postsurgical changes in the stomach. MRI/MRCP Abdomen without Contrast IMPRESSION: The common duct is within normal limits in caliber. No choledocholithiasis. Electronically Signed: Thaddeus Rojo MD at 5:41 EDT ,
== END | disposition home or self-care (01) ==
PROVIDERS: PCP Internal Medicine; Referring Provider Nurse Practitioner Adult Health; Visit Provider Nurse Practitioner Adult Health
DX: K76.0 Fatty (change of) liver, not elsewhere classified (principal)
CPT/HCPCS: 74181

== ENCOUNTER 2022-08-15 11:36 | Emergency (ER) | payer MEDICARE, SELFPAY ==
[2022-08-15 11:39] VITALS: BP 125/86; PULSE 94; RESP 16; TEMP 36.4; O2SAT 100; BMI 31.9
--- NOTE | 2022-08-15 12:19 | VDLE_ITS ---
Reason For Study: LEG PAIN RIGHT LEFT GSV is normal. CFV is compressible, spontaneous, phasic, CFV is compressible, spontaneous, phasic, competent, and demonstrates normal competent and demonstrates normal augmentation. augmentation. FV is compressible, spontaneous, phasic, competent and demonstrates normal augmentation. POP V is compressible, spontaneous, phasic, competent and demonstrates normal augmentation. T/P Trunk is compressible. PTV is compressible. RT PerV is compressible. Multiple enlarged and vascularized lymph nodes noted in Rt groin measuring approximately 1.55 x 0.97cm and 2.56 x 1.14cm. Procedure This is a venous duplex using B-mode, color flow and spectral Doppler. Exam performed portable in ED. The exam was diagnostic. A preliminary report was called and/or faxed to Dr. De Santiago. VL/Venous Duplex US, Unilateral Interpretation Summary There is no evidence of right lower extremity deep vein thrombosis. Right great saphenous vein appears patent and compressible segmentally. Right groin 0.97 x 1.57 cm and 2.5 6 x 1.14 cm lymph nodes. Normal flow patterns left common femoral vein Ordering Physician: Bimal De Santiago Referring Physician: Diana Martinez M.D. Performed By: Octaviano Pelaez RVT
--- NOTE | 2022-08-15 12:40 | EDS_ITS ---
HPI History of Present Illness HPI Narrative: Amanda with pain and swelling to her right thigh that began yesterday. Patient states it came on gradually. Patient describes it as sharp and aching. Patient states nothing makes it worse and nothing makes it better. Patient denies any paresthesias or weakness. Patient denies any trauma or injury. Patient states this feels similar to the pain she had with a prior DVT. Patient does not currently take any anticoagulants. Chief Complaint: Lower Extremity Injury Onset/Context/Timing Onset: Yesterday Context: Gradual Onset Timing: Continuous Quality of Pain: Sharp Location: Right medial thigh Worsened by: Nothing Relieved by: Nothing Associated Symptoms Associated Symptoms: Negative for Parasthesia, Weakness or Loss of Funtion [facility] Medical History Abnormal EKG Anemia Asthma BPV (benign positional vertigo) Depression Diabetes mellitus, type II DVT (deep vein thrombosis) in Edema Elevated liver enzymes Fatty liver GERD (gastroesophageal reflux disease) Hormone imbalance Hot flashes HTN (hypertension) Hypocalcemia Hypothyroidism Hypoxia Obstructive sleep apnea Pure hypercholesterolemia, unspecified Sciatica Staph infection Syncope Vitamin D deficiency Home Medications fluoxetine 20 mg capsule 20 mg PO BID antidepressant 06/05/14 [History Last Taken 04/13/20] metformin 500 mg tablet,extended release 24hr 1,000 mg PO BID dm 06/28/18 [History Last Taken 04/13/20] levothyroxine 150 mcg tablet 150 mcg PO DAILY thyroid 04/13/20 [History Last Taken 04/13/20] albuterol sulfate 90 mcg/actuation aerosol inhaler 2 puff inhalation Q4H PRN PRN sob/wheezing ##1 04/20/20 [Rx Last Taken Unknown] metoprolol tartrate 50 mg tablet 50 mg PO DAILY 04/29/22 [History Last Taken Unknown] omeprazole magnesium 20 mg tablet,delayed release (Prilosec OTC) 20 mg PO DAILY 04/29/22 [History Last Taken Unknown] semaglutide 14 mg tablet (Rybelsus) 14 mg PO DAILY 04/29/22 [History Last Taken Unknown] ursodiol 250 mg tablet 250 mg PO BID #180 tabs 07/22/22 [Rx Last Taken Unknown] nirmatrelvir 300 mg (150 mg x2)-ritonavir 100 mg tablet,dose pack(EUA) (Paxlovid) See Rx Instructions PO .COMPLEX #30 tabs 07/27/22 [Rx Last Taken Unknown] Allergy/AdvReac Type Severity Reaction Status Date / Time Acrylic Acid and Acrylates Allergy Other Verified 08/15/22 11:38 [steri-strips (acrylate)] adhesive tape Allergy BLISTERS/SC Verified 08/15/22 11:38 ARS codeine Allergy Shortness Verified 08/15/22 11:38 of breath Sulfa (Sulfonamide Allergy Rash Verified 08/15/22 11:38 Antibiotics) Tetanus Vaccines and Toxoid Allergy Swelling Verified 08/15/22 11:38 [Tetanus Vaccines & Toxoid] meperidine HCl [From Demerol] AdvReac Itching Verified 08/15/22 11:38 Family History Mother Carotid stenosis Hx of CABG Heart disease CHF Father Diabetes Surgical History History of cholecystectomy History of gastric bypass History of hemiarthroplasty of left shoulder (03/12/18) History of hysterectomy History of tonsillectomy History of umbilical hernia repair Humeral head fracture Status post reverse total shoulder replacement Social History Smoking Status: Never smoker alcohol intake: never substance use type: does not use caffeine: Yes Type: carbonated beverages Number of servings: 3 ROS ROS ED Constitutional Constitutional ED: Reports fever(s); Denies chills Eyes Eyes: Denies blurry vision or change in vision ENT ENT ED: Denies rhinorrhea or sore throat Cardiovascular Cardiovascular: Denies chest pain or palpitations Respiratory/Chest Respiratory/Chest: Denies cough or dyspnea Gastrointestinal Gastrointestinal: Reports nausea and vomiting Genitourinary Genitourinary ED: Denies dysuria or hematuria Musculoskeletal Musculoskeletal: Reports neck pain; Denies back pain Integumentary Denies abscess or rash Neurologic Neurologic: Denies headache(s) or weakness Allergic/Immunologic Allergic/Immunologic ED: Denies mouth swelling or urticaria EXAM Physical Exam Const Vital Signs: 08/15/22 11:39 Temperature 97.6 F L Temperature Source Temporal Pulse Rate 94 Respiratory Rate 16 Blood Pressure 125/86 H Blood Pressure Mean 99 Pulse Ox 100 Oxygen Delivery Method Room Air Positive well nourished and well developed General Appearance ED: well developed and NAD HEENT Reports moist mucous membranes Extremity Extremity Narrative: There is tenderness over the medial aspect of the right proximal thigh. There is some fullness to this area. There is no erythema or warmth. There is no fluctuance. There is no evidence of any abscess formation. There is full range of motion of the right hip and right knee. Strength is 5/5 bilaterally in the lower extremities. There are no sensory deficits noted. Femoral and pedal pulses are equal bilaterally. Neuro oriented x3, CN's II-XII intact bilaterally, moves all extremities and no sensory deficits noted Sensorium / Orientation: alert Motor Exam: strength 5/5 throughout Psych mental status grossly normal MDM MDM MDM Narrative Medical decision making narrative: Differential diagnosis includes DVT, hematoma, lymphadenopathy, and pseudoaneurysm. Venous duplex of the right lower extremity will be obtained to assess for DVT. Radiography Diagnostic Testing: Venous duplex of the right lower extremity was obtained. There is no evidence of DVT. There are 2 swollen lymph nodes. There are no other abnormalities noted. Treatment and Re-Evaluation Narrative: Patient was advised of her findings. Patient has no signs of infection that would cause the lymphadenopathy. Therefore, I do not feel patient requires ant ibiotics at this time. Patient was advised that this may be related to her recent COVID infection. Patient was instructed use warm compresses. Patient was instructed to take Tylenol or ibuprofen as needed for pain. Patient was instructed to follow-up with her primary care physician in 5 to 7 days. Patient understood and was agreeable with plan. All questions were answered. Discharge Plan Triage Chief Complaint: Lower Extremity Injury Other Complaint: General Illness ED Provider: Bimal De Santiago Dx/Rx/DC Orders Clinical Impression: Acute inguinal lymphadenitis, Diabetes mellitus, type II, COVID-19 virus infection Instructions: Lymphadenopathy Prescriptions: No Action metoprolol tartrate 50 mg tablet 50 mg PO DAILY Rybelsus 14 mg tablet 14 mg PO DAILY omeprazole magnesium [Prilosec OTC] 20 mg tablet,delayed release (DR/EC) 20 mg PO DAILY fluoxetine 20 MG capsule 20 mg PO BID metformin 500 MG tablet extended release 24hr 1,000 mg PO BID levothyroxine 150 MCG tablet 150 mcg PO DAILY albuterol sulfate 1 PUFF inhaler 2 puff INHALATION Q4H PRN PRN (Reason: sob/wheezing) Qty: 1 0RF Paxlovid (EUA) 300 mg (150 mg x 2)-100 mg tablets,dose pack See Rx Instructions .ROUTE .COMPLEX Qty: 30 0RF Rx Instructions: take TWO 150 mg tablets of nirmatrelvir with ONE 100 mg tablet of ritonavir twice daily for 5 days ursodiol 250 mg tablet 250 mg PO BID Qty: 180 3RF Primary Care Provider: Diana Martinez Referrals: Diana Martinez DO [Primary Care Provider] - 5-7 Days Disposition Disposition: Home, Self Care
== END 2022-08-15 13:35 | disposition home or self-care (01) ==
PROVIDERS: Emergency Provider Emergency Medicine; PCP Internal Medicine; Visit Provider Emergency Medicine
DX: L04.3 Acute lymphadenitis of lower limb (principal); E11.9 Type 2 diabetes mellitus without complications; U07.1 COVID-19; I10 Essential (primary) hypertension; E78.00 Pure hypercholesterolemia, unspecified; E03.9 Hypothyroidism, unspecified; Z79.84 Long term (current) use of oral hypoglycemic drugs; Z79.899 Other long term (current) drug therapy
CPT/HCPCS: 99282; 93971

== ENCOUNTER 2022-08-16 12:51 | Emergency (ER) | payer MEDICARE, SELFPAY ==
[2022-08-16 12:52] VITALS: BP 107/68; PULSE 101; RESP 18; TEMP 36.6; O2SAT 100; BMI 31.6
--- NOTE | 2022-08-16 13:02 | EDS_ITS ---
HPI History of Present Illness Chief Complaint: Lower Extremity Injury Detail of Chief Complaint: Document temperature 102.0 ?F, red swollen proximal anterior medial right t Informant: patient Occured/Mechanism Comment: No history of injury Onset/Context/Timing Onset: Days (2 days ago) Context: Sudden Onset Timing: Continuous Quality of Pain: Dull and Aching Location: Proximal medial anterior right thigh Current Severity: Mild Maximum Severity: Moderate Worsened by: Movement and palpation Relieved by: Nothing Associated Symptoms Associated Symptoms: Negative for Parasthesia, Weakness or Loss of Funtion Narrative Narrative: Patient is a 66-year-old woman with history of type 2 diabetes, hypothyroidism, nonalcoholic fatty liver disease and obstructive sleep apnea who presents because of increased pain, swelling redness compared to yesterday. She was seen yesterday. Venous duplex study revealed to lymph nodes that were inflamed. Patient states after she was discharged she had a document temperature of 102.0 ?F. She denies shaking chills. She did call the emergency room and was instr ucted to alternate Tylenol and ibuprofen for her fever. Patient has no history of abscess. She states the area is red and painful. She says the area has gotten bigger since yesterday. Records from yesterday were reviewed as well as the venous duplex study. Recent that she returned are the fever and increased pain, redness and size. Patient is not on an antithrombotic or anticoagulant. Tetanus Immunization: 5-10 years Prior similar symptoms: Yes Recent Illness/Hospitalization: Yes [facility] Medical History Abnormal EKG Anemia Asthma BPV (benign positional vertigo) Depression Diabetes mellitus, type II DVT (deep vein thrombosis) in Edema Elevated liver enzymes Fatty liver GERD (gastroesophageal reflux disease) Hormone imbalance Hot flashes HTN (hypertension) Hypocalcemia Hypothyroidism Hypoxia Obstructive sleep apnea Pure hypercholesterolemia, unspecified Sciatica Staph infection Syncope Vitamin D deficiency Home Medications fluoxetine 20 mg capsule 20 mg PO BID antidepressant 06/05/14 [History Last Taken 04/13/20] metformin 500 mg tablet,extended release 24hr 1,000 mg PO BID dm 06/28/18 [History Last Taken 04/13/20] levothyroxine 150 mcg tablet 150 mcg PO DAILY thyroid 04/13/20 [History Last Taken 04/13/20] albuterol sulfate 90 mcg/actuation aerosol inhaler 2 puff inhalation Q4H PRN PRN sob/wheezing ##1 04/20/20 [Rx Last Taken Unknown] metoprolol tartrate 50 mg tablet 50 mg PO DAILY 04/29/22 [History Last Taken Unknown] omeprazole magnesium 20 mg tablet,delayed release (Prilosec OTC) 20 mg PO DAILY 04/29/22 [History Last Taken Unknown] semaglutide 14 mg tablet (Rybelsus) 14 mg PO DAILY 04/29/22 [History Last Taken Unknown] ursodiol 250 mg tablet 250 mg PO BID #180 tabs 07/22/22 [Rx Last Taken Unknown] nirmatrelvir 300 mg (150 mg x2)-ritonavir 100 mg tablet,dose pack(EUA) (Paxlovid) See Rx Instructions PO .COMPLEX #30 tabs 07/27/22 [Rx Last Taken Unknown] cephalexin 500 mg capsule 500 mg PO Q6 #28 CAPSULES 08/16/22 [Rx Last Taken Unknown] Allergy/AdvReac Type Severity Reaction Status Date / Time Acrylic Acid and Acrylates Allergy Other Verified 08/16/22 12:51 [steri-strips (acrylate)] adhesive tape Allergy BLISTERS/SC Verified 08/16/22 12:51 ARS codeine Allergy Shortness Verified 08/16/22 12:51 of breath Sulfa (Sulfonamide Allergy Rash Verified 08/16/22 12:51 Antibiotics) Tetanus Vaccines and Toxoid Allergy Swelling Verified 08/16/22 12:51 [Tetanus Vaccines & Toxoid] meperidine HCl [From Demerol] AdvReac Itching Verified 08/16/22 12:51 Family History Mother Carotid stenosis Hx of CABG Heart disease CHF Father Diabetes Surgical History History of cholecystectomy History of gastric bypass History of hemiarthroplasty of left shoulder (03/12/18) History of hysterectomy History of tonsillectomy History of umbilical hernia repair Humeral head fracture Status post reverse total shoulder replacement Social History (Updated 08/16/22 @ 13:[address] Theodore Yang MD) household members: spouse Smoking Status: Never smoker alcohol intake: never substance use type: does not use caffeine: Yes Type: carbonated beverages Number of servings: 3 ROS ROS ED Constitutional Constitutional ED: Reports fever(s); Denies chills, subjective, sweats or weight loss Eyes Eyes: Denies blurry vision, change in vision or diplopia ENT ENT ED: Denies ear pain, rhinorrhea or sore throat Cardiovascular Cardiovascular: Denies chest pain Respiratory/Chest Respiratory/Chest: Denies cough, dyspnea or dyspnea on exertion Gastrointestinal Gastrointestinal: Denies nausea or vomiting Genitourinary Genitourinary ED: Denies dysuria, hematuria or urinary frequency Integumentary Reports rash Neurologic Neurologic: Denies headache(s), paresthesias or weakness Endocrine Endocrinology: Denies polydipsia, polyphagia or polyuria Hematologic/Lymphatic Hematologic/Lymphatic: Denies easy bleeding or easy bruising EXAM Physical Exam Const Vital Signs: 08/16/22 12:52 Temperature 97.8 F Temperature Source Temporal Pulse Rate 101 H Respiratory Rate 18 Blood Pressure 107/68 Blood Pressure Mean 81 Pulse Ox 100 Oxygen Delivery Method Room Air Positive well nourished, well developed and obese Constitutional Narrative: Patient appears in slight discomfort. General Appearance ED: well developed; Negative for NAD Nutritional Appearance: obese HEENT Reports moist mucous membranes normocephalic and atraumatic Eyes PERRL Eyes Narrative: Extract muscle intact. Present to Bimal. Conjunctive is pink. Neck full ROM and supple Resp normal respiratory effort, no retractions and clear to auscultation bilaterally Cardio regular rate and regular rhythm GI non-tender, non-distended and no masses Auscultation: hypoactive bowel sounds Palpation: soft Extremity Negative for normal to inspection Extremity Narrative: There is an area of erythema and increased soft tissue noted anterior medial proximal right thigh that is 3 to 4 cm in size. There is no fluctuance. There is no induration. There is no lymphangitis. There are shotty inguinal nodes noted. She complained of mild discomfort. Neuro oriented x3, CN's II-XII intact bilaterally, moves all extremities and no sensory deficits noted Sensorium / Orientation: alert Psych mental status grossly normal Skin no wounds Skin Narrative: Described under the extremity portion of the chart Lesions: no lesions Rashes: No no rashes MDM MDM MDM Narrative Medical decision making narrative: Suspect patient has an infection since she had a venous duplex study yesterday that revealed lymphadenitis. Since she is diabetic we will obtain BMP to assess renal function especially since she has been taking ibuprofen as well as glucose anion gap. CBC to assess white count differential. Patient was medicated with morphine for her pain. Since patient's white count is elevated with shift she was treated with Unasyn for dermatologic infection. Patient was made aware of this. The BMP had not returned. Since the BMP is unremarkable plan is outpatient therapy with close follow-up with her primary care physician. History & Record Review Additional record(s) reviewed:: Prior ED visit and Prior labs Lab Data Attestation: I reviewed the patient's lab results. Lab results narrative: CBC is elevated 15.4 with shift. There is no bandemia. Basic metabolic panel is marked for glucose of 182 with normal CO2 anion gap. Renal function is normal. Labs: Laboratory Results - last 24 hr 08/16/22 08/16/22 13:16 13:16 WBC 15.4 H RBC 4.44 Hgb 13.2 Hct 39.3 MCV 88.5 MCH 29.7 MCHC 33.6 RDW Std Deviation 44.7 H RDW Coeff of Krista 14.1 Plt Count 146 L MPV 10.1 Immature Gran % (Auto) 0.500 Neut % (Auto) 91.2 H Lymph % (Auto) 3.3 L [place] % (Auto) 4.0 Eos % (Auto) 0.8 Baso % (Auto) 0.2 Absolute Neuts (auto) 14.0 H Absolute Lymphs (auto) 0.50 L Nucleated RBC % 0 Sodium 137 Potassium 3.8 Chloride 105 Carbon Dioxide 23.0 Anion Gap 9 BUN 14 Creatinine 0.94 Estim Creat Clear Calc 52.21 Est GFR (MDRD) Af Amer 77 Est GFR (MDRD) Non-Af 64 BUN/Creatinine Ratio 14.9 Glucose 182 H Calcium 8.7 Treatment and Re-Evaluation Narrative: IV antibiotics as documented in the MDM and discharged home on antibiotics for streptococcal coverage. Discharge Plan Triage Chief Complaint: Lower Extremity Injury ED Provider: Theodore Yang Dx/Rx/DC Orders Clinical Impression: Soft tissue infection, Controlled type 2 diabetes mellitus with hyperglycemia, Hypothyroidism, Acute inguinal lymphadenitis, NAFLD (nonalcoholic fatty liver disease) Instructions: ED Cellulitis Prescriptions: New cephalexin [cephalexin] 500 mg capsule 500 mg PO Q6 Qty: 28 0RF No Action metoprolol tartrate 50 mg tablet 50 mg PO DAILY Rybelsus 14 mg tablet 14 mg PO DAILY omeprazole magnesium [Prilosec OTC] 20 mg tablet,delayed release (DR/EC) 20 mg PO DAILY fluoxetine 20 MG capsule 20 mg PO BID metformin 500 MG tablet extended release 24hr 1,000 mg PO BID levothyroxine 150 MCG tablet 150 mcg PO DAILY albuterol sulfate 1 PUFF inhaler 2 puff INHALATION Q4H PRN PRN (Reason: sob/wheezing) Qty: 1 0RF Paxlovid (EUA) 300 mg (150 mg x 2)-100 mg tablets,dose pack See Rx Instructions .ROUTE .COMPLEX Qty: 30 0RF Rx Instructions: take TWO 150 mg tablets of nirmatrelvir with ONE 100 mg tablet of ritonavir twice daily for 5 days ursodiol 250 mg tablet 250 mg PO BID Qty: 180 3RF Primary Care Provider: Diana Martinez Referrals: Diana Martinez DO [Primary Care Provider] - 2 Days for wound check Disposition Disposition: Home, Self Care
[2022-08-16] MEDS: Morphine 4 MG/ML Syringe IV (13:12)
[2022-08-16] MEDS: Ondansetron 4 MG/2 ML Vial IV (13:12)
[2022-08-16 13:23] LABS: Basophil# 0.03 X10^3/uL; Basophil% 0.2 % (0-1); Eosinophil# 0.12 X10^3/uL; Eosinophils% 0.8 % (0-5); Hematocrit 39.3 % (37-47); Hemoglobin 13.2 g/dL (12.0-15.0); Lymphocyte % 3.3 % (19-41); Mean Corp Hgb Conc 33.6 g/dL (32-36); Mean Corpuscular Hgb 29.7 pg (27.0-32.0); Mean Corpuscular Volume 88.5 fL (81-99); Mean Platelet Vol. 10.1 fl (6.2-12.0); Monocyte# 0.62 X10^3/uL; NRBC Flagged by Analyzer 0 % (0-5); Neutrophil % 91.2 % (47-70); POSITIVE DIFFERENTIAL YES; Platelet Count 146 K/mm3 (150-450); RBC Distribution Width CV 14.1 % (11.6-14.6); RBC Distribution Width SD 44.7 fl (35.1-43.9); Red Blood Count 4.44 M/mm3 (4.2-5.4); White Blood Count 15.4 K/mm3 (4.4-11.0)
[2022-08-16 13:24] LABS: Differential Indicated SCAN CRITERIA MET
[2022-08-16 13:35] LABS: Anion Gap 9 (5-15); BUN 14 mg/dL (7-18); BUN/Creat Ratio 14.9 RATIO (10-20); Calcium,Total 8.7 mg/dL (8.5-10.1); Chloride 105 mmol/L (98-107); Creatinine, Serum 0.94 mg/dL (0.55-1.02); EST Glomerular Filtration Rate 64 mL/min (>60); Est Glom Filt Rate - Afr Amer 77 mL/min (>60); Estimated Creatinine Clearance 52.21 ml/min; Glucose 182 mg/dL (74-106); Potassium 3.8 mmol/L (3.5-5.1); Sodium Level 137 mmol/L (136-145)
[2022-08-16 15:12] VITALS: PULSE 107; RESP 18; O2SAT 98
== END 2022-08-16 16:01 | disposition home or self-care (01) ==
LOC: ED 13:49
PROVIDERS: Emergency Provider Emergency Medicine; PCP Internal Medicine; Visit Provider Emergency Medicine
DX: L04.1 Acute lymphadenitis of trunk (principal); E11.65 Type 2 diabetes mellitus with hyperglycemia; K76.0 Fatty (change of) liver, not elsewhere classified; I10 Essential (primary) hypertension; E78.00 Pure hypercholesterolemia, unspecified; E03.9 Hypothyroidism, unspecified; E66.9 Obesity, unspecified; Z68.31 Body mass index [BMI] 31.0-31.9, adult; Z79.84 Long term (current) use of oral hypoglycemic drugs; Z79.899 Other long term (current) drug therapy
CPT/HCPCS: 96375; 96365; 99284; 80048; 85025; J7030; A4216; J0295; J2405

== ENCOUNTER 2022-08-17 10:19 | Inpatient (IN) | payer MEDICARE, SELFPAY ==
[2022-08-17] VITALS (10 sets, daily range): BP systolic 110–150; BP diastolic 74–87; PULSE 78–96; RESP 16–18; TEMP 35.5–39.5; O2SAT 95–100; BMI 32.4; BMI 32.5
--- NOTE | 2022-08-17 10:31 | EDS_ITS ---
HPI <JAM Sky - Last Filed: 08/17/22 11:42> History of Present Illness Chief Complaint: Cellulitis Narrative Narrative: 66-year-old female with past medical history of DM2 presents with worsening right thigh cellulitis. 3 days ago she had pain in the right thigh and had an ultrasound showing enlarged lymph nodes. No DVT. Yesterday the area became red and she came back to the ER. She was given a dose of IV Unasyn and prescribed Keflex 500 mg 4 times a day. She has taken 3 doses. She states last night her oral thermometer showed 103 ?F so she took Tylenol. This morning the redness had doubled in size prompting her to come in. PFSH <JAM Sky - Last Filed: 08/17/22 11:42> [facility] Medical History (Updated 08/17/22 @ 13:[address] Monie Ruiz MD) Abnormal EKG Anemia Asthma BPV (benign positional vertigo) Depression Diabetes mellitus, type II DVT (deep vein thrombosis) in Edema Elevated liver enzymes Fatty liver GERD (gastroesophageal reflux disease) Hormone imbalance Hot flashes HTN (hypertension) Hypocalcemia Hypothyroidism Hypoxia Obstructive sleep apnea Pneumonia due to COVID-19 virus Pure hypercholesterolemia, unspecified Sciatica Staph infection Syncope Vitamin D deficiency Home Medications fluoxetine 20 mg capsule 40 mg PO QHS antidepressant 06/05/14 [History Last Taken 08/16/22] semaglutide 14 mg tablet (Rybelsus) 14 mg PO DAILY 04/29/22 [History Last Taken 08/17/22] ursodiol 250 mg tablet 250 mg PO BID #180 tabs 07/22/22 [Rx Last Taken 08/16/22] cephalexin 500 mg capsule 500 mg PO Q6 #28 CAPSULES 08/16/22 [Rx Last Taken 08/17/22] calcium 600 mg capsule 1,200 mg PO DAILY Check with primary doctor 08/17/22 [History Last Taken Unknown] cholecalciferol (vitamin D3) 125 mcg (5,000 unit) tablet (Vitamin D3) 125 mcg PO DAILY SUPPLEMENT 08/17/22 [History Last Taken 08/16/22] levothyroxine 200 mcg tablet 200 mcg PO DAILY THYROID 08/17/22 [History Last Taken 08/17/22] metformin 1,000 mg tablet 1,000 mg PO BID DM 08/17/22 [History Last Taken 08/17/22] vitamin E 670 mg (1,000 unit) capsule 670 mg PO DAILY SUPPLEMENT 08/17/22 [History Last Taken 08/16/22] Allergy/AdvReac Type Severity Reaction Status Date / Time Acrylic Acid and Acrylates Allergy Other Verified 08/17/22 10:21 [steri-strips (acrylate)] adhesive tape Allergy BLISTERS/SC Verified 08/17/22 10:21 ARS codeine Allergy Shortness Verified 08/17/22 10:21 of breath Sulfa (Sulfonamide Allergy Rash Verified 08/17/22 10:21 Antibiotics) Tetanus Vaccines and Toxoid Allergy Swelling Verified 08/17/22 10:21 [Tetanus Vaccines & Toxoid] meperidine HCl [From Demerol] AdvReac Itching Verified 08/17/22 10:21 Family History Mother Carotid stenosis Hx of CABG Heart disease CHF Father Diabetes Surgical History (Updated 08/17/22 @ 13:01 by Anne Colon) H/O shoulder surgery History of cholecystectomy History of gastric bypass History of hemiarthroplasty of left shoulder (03/12/18) History of hysterectomy History of tonsillectomy History of umbilical hernia repair Humeral head fracture Status post reverse total shoulder replacement Social History (Updated 08/16/22 @ 13:[address] Theodore Yang MD) household members: spouse Smoking Status: Never smoker alcohol intake: never substance use type: does not use caffeine: Yes Type: carbonated beverages Number of servings: 3 ROS <JAM Sky - Last Filed: 08/17/22 11:42> ROS ED ROS Narrative Constitutional: Positive for fever. Negative for fever. CVS: Negative for chest pain. Respiratory: Negative for shortness of breath. GI: Negative for nausea or vomiting. Skin: Positive for rash. Musc: Negative for joint pain, swelling. EXAM <JAM Sky - Last Filed: 08/17/22 11:42> Physical Exam Narrative Exam Narrative: CONST: Patient sitting in no acute distress. EYES: Normal inspection. NECK: Normal inspection. RESP: No respiratory distress, CTAB. CVS: Regular rate and rhythm, no murmur, no gallop. SKIN: 20 x 14 cm circular area of redness and warmth right medial thigh with palpable lymph nodes. No fluctuance or crepitus. No lymphangitic streaking. EXTREMITIES: No pedal edema, full ROM both lower extremities, 2+ DP pulses. NEURO: Oriented x4. PSYCH: Normal affect. Const Vital Signs: 08/17/22 10:20 08/17/22 12:04 08/17/22 12:22 Temperature 96 F L 98.4 F Temperature Source Temporal Temporal Pulse Rate 96 88 78 Respiratory Rate 18 18 18 Blood Pressure 110/79 112/78 130/87 H Blood Pressure Mean 89 89 101 Blood Pressure Source Blood Pressure Position Blood Pressure Location Pulse Ox 100 97 98 Oxygen Delivery Method Room Air Room Air Room Air 08/17/22 12:53 08/17/22 15:51 Temperature 97.8 F 98.2 F Temperature Source Temporal Oral Pulse Rate 84 95 Respiratory Rate 16 18 Blood Pressure 134/74 H 150/81 H Blood Pressure Mean 94 104 Blood Pressure Source Monitor Blood Pressure Position Semi-Fowlers Blood Pressure Location Left Arm Pulse Ox 100 95 Oxygen Delivery Method Room Air Room Air <Dr. Bimal De Santiago DO - Last Filed: 08/17/22 21:13> Physical Exam Const Vital Signs: 08/17/22 10:20 08/17/22 12:04 08/17/22 12:22 Temperature 96 F L 98.4 F Temperature Source Temporal Temporal Pulse Rate 96 88 78 Respiratory Rate 18 18 18 Blood Pressure 110/79 112/78 130/87 H Blood Pressure Mean 89 89 101 Blood Pressure Source Blood Pressure Position Blood Pressure Location Pulse Ox 100 97 98 Oxygen Delivery Method Room Air Room Air Room Air 08/17/22 12:53 08/17/22 15:51 Temperature 97.8 F 98.2 F Temperature Source Temporal Oral Pulse Rate 84 95 Respiratory Rate 16 18 Blood Pressure 134/74 H 150/81 H Blood Pressure Mean 94 104 Blood Pressure Source Monitor Blood Pressure Position Semi-Fowlers Blood Pressure Location Left Arm Pulse Ox 100 95 Oxygen Delivery Method Room Air Room Air MDM <JAM Sky - Last Filed: 08/17/22 11:42> [facility] MDM Narrative Medical decision making narrative: Patient with right thigh cellulitis worsening after dose of IV Unasyn yesterday and 3 doses of oral Keflex at home. Reporting nighttime fevers. Here she appears well and nontoxic. Afebrile with normal vital signs. She does have a large area of right medial thigh cellulitis. No evidence of abscess. Labs show increasing leukocytosis at 17.0 with a shift. Diabetes appears well controlled with a glucose of 104. Patient given another dose of IV Unasyn and would benefit from observation with worsening cellulitis. Case discussed with Dr. Ruiz for admission. Lab Data Attestation: I reviewed the patient's lab results. Labs: Laboratory Results - last 24 hr 08/17/22 08/17/22 08/17/22 10:34 10:34 10:34 WBC 17.0 H RBC 4.54 Hgb 13.4 Hct 39.5 MCV 87.0 MCH 29.5 MCHC 33.9 RDW Std Deviation 43.7 RDW Coeff of Kritsa 14.1 Plt Count 153 MPV 10.4 Immature Gran % (Auto) 0.500 Neut % (Auto) 89.6 H Lymph % (Auto) 2.9 L [place] % (Auto) 5.4 Eos % (Auto) 1.4 Baso % (Auto) 0.2 Absolute Neuts (auto) 15.2 H Absolute Lymphs (auto) 0.50 L Nucleated RBC % 0 ESR Sodium 139 Potassium 3.4 L Chloride 108 H Carbon Dioxide 26.0 Anion Gap 5 BUN 16 Creatinine 0.88 Estim Creat Clear Calc 55.77 Est GFR (MDRD) Af Amer 84 Est GFR (MDRD) Non-Af 69 BUN/Creatinine Ratio 18.3 Glucose 104 Lactic Acid Calcium 9.0 Total Bilirubin 1.00 Direct Bilirubin 0.64 H AST 19 ALT 25 Alkaline Phosphatase 124 H C-React Prot Ext Range 187.00 H Total Protein 6.3 L Albumin 2.6 L Globulin 3.7 Procalcitonin TSH < 0.01 L Free T4 POC Glucose 08/17/22 08/17/22 08/17/22 10:34 10:34 13:15 WBC RBC Hgb Hct MCV MCH MCHC RDW Std Deviation RDW Coeff of Krista Plt Count MPV Immature Gran % (Auto) Neut % (Auto) Lymph % (Auto) [place] % (Auto) Eos % (Auto) Baso % (Auto) Absolute Neuts (auto) Absolute Lymphs (auto) Nucleated RBC % ESR 12 Sodium Potassium Chloride Carbon Dioxide Anion Gap BUN Creatinine Estim Creat Clear Calc Est GFR (MDRD) Af Amer Est GFR (MDRD) Non-Af BUN/Creatinine Ratio Glucose Lactic Acid Calcium Total Bilirubin Direct Bilirubin AST ALT Alkaline Phosphatase C-React Prot Ext Range Total Protein Albumin Globulin Procalcitonin 0.49 H TSH Free T4 2.43 H POC Glucose 08/17/22 08/17/22 08/17/22 13:15 16:41 17:30 WBC RBC Hgb Hct MCV MCH MCHC RDW Std Deviation RDW Coeff of Krista Plt Count MPV Immature Gran % (Auto) Neut % (Auto) Lymph % (Auto) [place] % (Auto) Eos % (Auto) Baso % (Auto) Absolute Neuts (auto) Absolute Lymphs (auto) Nucleated RBC % ESR Sodium Potassium Chloride Carbon Dioxide Anion Gap BUN Creatinine Estim Creat Clear Calc Est GFR (MDRD) Af Amer Est GFR (MDRD) Non-Af BUN/Creatinine Ratio Glucose Lactic Acid 3.2 H* 2.7 H* Calcium Total Bilirubin Direct Bilirubin AST ALT Alkaline Phosphatase C-React Prot Ext Range Total Protein Albumin Globulin Procalcitonin TSH Free T4 POC Glucose 76 <Dr. Bimal De Santiago, DO - Last Filed: 08/17/22 21:13> [facility] Lab Data Labs: Laboratory Results - last 24 hr 08/17/22 08/17/22 08/17/22 10:34 10:34 10:34 WBC 17.0 H RBC 4.54 Hgb 13.4 Hct 39.5 MCV 87.0 MCH 29.5 MCHC 33.9 RDW Std Deviation 43.7 RDW Coeff of Krista 14.1 Plt Count 153 MPV 10.4 Immature Gran % (Auto) 0.500 Neut % (Auto) 89.6 H Lymph % (Auto) 2.9 L [place] % (Auto) 5.4 Eos % (Auto) 1.4 Baso % (Auto) 0.2 Absolute Neuts (auto) 15.2 H Absolute Lymphs (auto) 0.50 L Nucleated RBC % 0 ESR Sodium 139 Potassium 3.4 L Chloride 108 H Carbon Dioxide 26.0 Anion Gap 5 BUN 16 Creatinine 0.88 Estim Creat Clear Calc 55.77 Est GFR (MDRD) Af Amer 84 Est GFR (MDRD) Non-Af 69 BUN/Creatinine Ratio 18.3 Glucose 104 Lactic Acid Calcium 9.0 Total Bilirubin 1.00 Direct Bilirubin 0.64 H AST 19 ALT 25 Alkaline Phosphatase 124 H C-React Prot Ext Range 187.00 H Total Protein 6.3 L Albumin 2.6 L Globulin 3.7 Procalcitonin TSH < 0.01 L Free T4 POC Glucose 08/17/22 08/17/22 08/17/22 10:34 10:34 13:15 WBC RBC Hgb Hct MCV MCH MCHC RDW Std Deviation RDW Coeff of Krista Plt Count MPV Immature Gran % (Auto) Neut % (Auto) Lymph % (Auto) [place] % (Auto) Eos % (Auto) Baso % (Auto) Absolute Neuts (auto) Absolute Lymphs (auto) Nucleated RBC % ESR 12 Sodium Potassium Chloride Carbon Dioxide Anion Gap BUN Creatinine Estim Creat Clear Calc Est GFR (MDRD) Af Amer Est GFR (MDRD) Non-Af BUN/Creatinine Ratio Glucose Lactic Acid Calcium Total Bilirubin Direct Bilirubin AST ALT Alkaline Phosphatase C-React Prot Ext Range Total Protein Albumin Globulin Procalcitonin 0.49 H TSH Free T4 2.43 H POC Glucose 08/17/22 08/17/22 08/17/22 13:15 16:41 17:30 WBC RBC Hgb Hct MCV MCH MCHC RDW Std Deviation RDW Coeff of Krista Plt Count MPV Immature Gran % (Auto) Neut % (Auto) Lymph % (Auto) [place] % (Auto) Eos % (Auto) Baso % (Auto) Absolute Neuts (auto) Absolute Lymphs (auto) Nucleated RBC % ESR Sodium Potassium Chloride Carbon Dioxide Anion Gap BUN Creatinine Estim Creat Clear Calc Est GFR (MDRD) Af Amer Est GFR (MDRD) Non-Af BUN/Creatinine Ratio Glucose Lactic Acid 3.2 H* 2.7 H* Calcium Total Bilirubin Direct Bilirubin AST ALT Alkaline Phosphatase C-React Prot Ext Range Total Protein Albumin Globulin Procalcitonin TSH Free T4 POC Glucose 76 Treatment and Re-Evaluation :: I have personally performed a face to face assessment of the patient and have reviewed the SUJATHA Note. I performed a substantive portion of the visit including all aspects of the following. My garcia findings include: History: Patient presents with redness to the medial aspect of the right thigh that became worse today. Patient was seen here yesterday diagnosed with cellulitis. Patient was given a dose of Unasyn and was started on Keflex. Patient states the redness is worse today. Patient admits to a fever at nigh ttime. Patient states it is up to 103 at home. Patient states she has been taking Tylenol and ibuprofen which has been helping with the fevers. Patient denies any nausea or vomiting. Exam: Vital signs are stable. Patient is afebrile here. Patient is in no acute distress. Skin is warm and dry. There is erythema and warmth over the medial aspect of the right proximal thigh. There is no fluctuance. There is no evidence of any abscess formation. There is no discharge or drainage. There is tenderness to palpation. There is no induration. There are no vesicles or pustules noted. There is no petechia noted. Strength is 5/5 bilaterally in the lower extremities. There are no sensory deficits noted. Medical Decision Making: Differential diagnosis includes cellulitis, lymphadenitis, and sepsis. CBC will be obtained to assess for leukocytosis and anemia. Basic metabolic profile will be obtained to assess for electrolyte abnormality and renal function. Since the patient was started on antibiotics yesterday, I do not feel blood cultures will be beneficial at this time. CBC was reviewed. There is a leukocytosis of 17.0. There is an absolute neutrophil count of 15.2. Basic metabolic profile was reviewed. Potassium was slightly low at 3.4 and chloride was slightly high at 108. The remainder was within normal limits. Patient was given a dose of Unasyn here. Case was discussed with the hospitalist. She will admit the patient to her service. Patient understands and is agreeable with the plan. All questions were answered. Discharge Plan Dx/Rx/DC Orders Clinical Impression: Cellulitis of right thigh Disposition Disposition: Acute Care Hospital [facility] Discharge Date/Time: 08/17/22 12:45
[2022-08-17 10:47] LABS: Absolute Neutrophil Count 15.2 X10^3/uL (2.0-7.7); Basophil# 0.04 X10^3/uL; Basophil% 0.2 % (0-1); Eosinophil# 0.23 X10^3/uL; Eosinophils% 1.4 % (0-5); Hematocrit 39.5 % (37-47); Hemoglobin 13.4 g/dL (12.0-15.0); Lymphocyte % 2.9 % (19-41); Mean Corp Hgb Conc 33.9 g/dL (32-36); Mean Corpuscular Hgb 29.5 pg (27.0-32.0); Mean Platelet Vol. 10.4 fl (6.2-12.0); Monocyte# 0.91 X10^3/uL; Monocyte% 5.4 % (0-10); NRBC Flagged by Analyzer 0 % (0-5); Neutrophil # 15.23 X10^3/uL (2.7-7.7); Neutrophil % 89.6 % (47-70); POSITIVE DIFFERENTIAL YES; Platelet Count 153 K/mm3 (150-450); RBC Distribution Width CV 14.1 % (11.6-14.6); RBC Distribution Width SD 43.7 fl (35.1-43.9); Red Blood Count 4.54 M/mm3 (4.2-5.4)
[2022-08-17 10:49] LABS: Differential Indicated SCAN CRITERIA MET
[2022-08-17 11:03] LABS: Anion Gap 5 (5-15); BUN 16 mg/dL (7-18); BUN/Creat Ratio 18.3 RATIO (10-20); Chloride 108 mmol/L (98-107); Creatinine, Serum 0.88 mg/dL (0.55-1.02); EST Glomerular Filtration Rate 69 mL/min (>60); Est Glom Filt Rate - Afr Amer 84 mL/min (>60); Estimated Creatinine Clearance 55.77 ml/min; Glucose 104 mg/dL (74-106); Potassium 3.4 mmol/L (3.5-5.1); Sodium Level 139 mmol/L (136-145)
[2022-08-17] MEDS: Morphine 4 MG/ML Syringe IV (11:12)
[2022-08-17] MEDS: Ondansetron 4 MG/2 ML Vial IV ×2 (11:12→15:58)
--- NOTE | 2022-08-17 12:59 | PCM.HP.STD ---
HPI - General General Date of Admission: 08/17/22 Date of Service: 08/17/22 Chief Complaint: Right thigh pain HPI Narrative SHAUNA RANDALL, is a 66-year-old female with a history of nonalcoholic fatty liver disease, LUIS, hypothyroidism, type 2 diabetes mellitus who presented to [facility] 08/17/2022 with worsening right thigh cellulitis despite oral antibiotics. She began having pain on her upper right thigh on and due to the pain she presented here on Thursday. Given that she had had COVID several weeks ago she was concerned she had a blood clot as there is no erythema and mostly just pain not so much swelling, ultrasound was negative for DVT when she was sent home. Returned yesterday as it is started swelling getting red, was given a dose of Unasyn and oral Keflex and sent home. She continued to spike fevers with a Tmax of 103.8 and presented back to the emergency department today. White blood cell count 17, vitally stable and no temperature in the ED however cellulitis was worse so hospitalist consulted for admission. Patient reports she has never had anything like this before, no other rashes, bleeding, bruising. Has had fevers for several days off and on usually over 100.3 and will alternate Tylenol and ibuprofen which is helpful but then the next day they will return. Has had poor p.o. and some nausea at home but denies diarrhea or abdominal pain. No urinary symptoms or abdominal pain. COUNTS INCLUDE 234 BEDS AT THE [facility] Medical History (Updated 08/17/22 @ 13:[address] Monie Ruiz MD) Abnormal EKG Anemia Asthma BPV (benign positional vertigo) Depression Diabetes mellitus, type II DVT (deep vein thrombosis) in Edema Elevated liver enzymes Fatty liver GERD (gastroesophageal reflux disease) Hormone imbalance Hot flashes HTN (hypertension) Hypocalcemia Hypothyroidism Hypoxia Obstructive sleep apnea Pneumonia due to COVID-19 virus Pure hypercholesterolemia, unspecified Sciatica Staph infection Syncope Vitamin D deficiency Home Medications fluoxetine 20 mg capsule 40 mg PO QHS antidepressant 06/05/14 [History Last Taken 08/16/22] semaglutide 14 mg tablet (Rybelsus) 14 mg PO DAILY 04/29/22 [History Last Taken 08/17/22] ursodiol 250 mg tablet 250 mg PO BID #180 tabs 07/22/22 [Rx Last Taken 08/16/22] cephalexin 500 mg capsule 500 mg PO Q6 #28 CAPSULES 08/16/22 [Rx Last Taken 08/17/22] cholecalciferol (vitamin D3) 125 mcg (5,000 unit) tablet (Vitamin D3) 125 mcg PO DAILY SUPPLEMENT 08/17/22 [History Last Taken 08/16/22] levothyroxine 200 mcg tablet 200 mcg PO DAILY THYROID 08/17/22 [History Last Taken 08/17/22] metformin 1,000 mg tablet 1,000 mg PO BID DM 08/17/22 [History Last Taken 08/17/22] vitamin E 670 mg (1,000 unit) capsule 670 mg PO DAILY SUPPLEMENT 08/17/22 [History Last Taken 08/16/22] Allergy/AdvReac Type Severity Reaction Status Date / Time Acrylic Acid and Acrylates Allergy Other Verified 08/17/22 10:21 [steri-strips (acrylate)] adhesive tape Allergy BLISTERS/SC Verified 08/17/22 10:21 ARS codeine Allergy Shortness Verified 08/17/22 10:21 of breath Sulfa (Sulfonamide Allergy Rash Verified 08/17/22 10:21 Antibiotics) Tetanus Vaccines and Toxoid Allergy Swelling Verified 08/17/22 10:21 [Tetanus Vaccines & Toxoid] meperidine HCl [From Demerol] AdvReac Itching Verified 08/17/22 10:21 Family History Mother Carotid stenosis Hx of CABG Heart disease CHF Father Diabetes Surgical History (Updated 08/17/22 @ 13:01 by Anne Colon) H/O shoulder surgery History of cholecystectomy History of gastric bypass History of hemiarthroplasty of left shoulder (03/12/18) History of hysterectomy History of tonsillectomy History of umbilical hernia repair Humeral head fracture Status post reverse total shoulder replacement Social History (Updated 08/16/22 @ 13:[address] Theodore Yang MD) household members: spouse Smoking Status: Never smoker alcohol intake: never substance use type: does not use caffeine: Yes Type: carbonated beverages Number of servings: 3 ROS ROS Narrative General: Reports fevers intermittently HENT: Intermittent headaches, denies stuffy nose, denies sore throat EYES: Denies changes in vision Resp: Denies cough, denies shortness of breath Cardiac: Denies chest pain GI: Denies abdominal pain, denies changes in bowel, has had some nausea and poor p.o. : Denies changes in urination Extremity: Denies swelling of ankles MSK: Denies weakness Neuro: Denies any numbness/tingling Heme: Denies any bleeding or bruising Skin: Has a large erythematous area on upper anterior right thigh that is marked Psychiatric: No complaints voiced Vital Signs Vital Signs Vital Signs: 08/17/22 10:20 08/17/22 12:04 08/17/22 12:22 Temperature 96 F L 98.4 F Temperature Source Temporal Temporal Pulse Rate 96 88 78 Respiratory Rate 18 18 18 Blood Pressure 110/79 112/78 130/87 H Blood Pressure Mean 89 89 101 Pulse Ox 100 97 98 Oxygen Delivery Method Room Air Room Air Room Air 08/17/22 12:53 Temperature 97.8 F Temperature Source Temporal Pulse Rate 84 Respiratory Rate 16 Blood Pressure 134/74 H Blood Pressure Mean 94 Pulse Ox 100 Oxygen Delivery Method Room Air Weight Weight: 85.865 kg Body Mass Index (BMI) 32.5 Physical Exam Narrative General: Alert, oriented, no apparent distress HEENT: Atraumatic, normocephalic Eyes: Anicteric, normal conjunctiva, extraocular movements grossly intact Neck: Supple Respiratory: Clear to auscultation bilaterally, normal respiratory effort Cardiovascular: Regular rate and rhythm GI: Soft, nontender, nondistended Extremities: No edema Musculoskeletal: Moving all extremities Neuro: No overt focal neurological deficits Skin: Large erythematous area on upper anterior thigh, with slightly smaller swelling in the center without overt fluctuance, no drainage. There is marked Psych: Cooperative Results Lab / Micro Data Result Diagrams: 08/17/22 10:34 08/17/22 10:34 Labs: Laboratory Results - last 24 hr 08/17/22 10:34: WBC 17.0 H, RBC 4.54, Hgb 13.4, Hct 39.5, MCV 87.0, MCH 29.5, MCHC 33.9, RDW Std Deviation 43.7, RDW Coeff of Krista 14.1, Plt Count 153, MPV 10.4, Immature Gran % (Auto) 0.500, Neut % (Auto) 89.6 H, Lymph % (Auto) 2.9 L, [place] % (Auto) 5.4, Eos % (Auto) 1.4, Baso % (Auto) 0.2, Absolute Neuts (auto) 15.2 H, Absolute Lymphs (auto) 0.50 L, Nucleated RBC % 0 08/17/22 10:34: Sodium 139, Potassium 3.4 L, Chloride 108 H, Carbon Dioxide 26.0, Anion Gap 5, BUN 16, Creatinine 0.88, Estim Creat Clear Calc 55.77, Est GFR (MDRD) Af Amer 84, Est GFR (MDRD) Non-Af 69, BUN/Creatinine Ratio 18.3, Glucose 104, Calcium 9.0 Assessment & Plan Assessment/Plan (1) Cellulitis of right thigh: (2) Diabetes mellitus, type II: QUALIFIERS: Diabetes mellitus usp insulin use: without longwall foreman use Diabetes mellitus complication status: with other specified complication Qualified Code(s): E11.69 - Type 2 diabetes mellitus with other specified complication (3) Hypothyroidism: QUALIFIERS: Hypothyroidism type: unspecified Qualified Code(s): E03.9 - Hypothyroidism, unspecified (4) Obstructive sleep apnea: (5) NAFLD (nonalcoholic fatty liver disease): PLAN: Plan #Right thigh cellulitis -Given that she was given a dose of Unasyn yesterday and oral Keflex and failed this we will start her on Zosyn and given her significantly elevated temperatures with most recent last night being 103.8 and elevated white blood cell count of 17 we will also add vancomycin -We will add MRSA swab and de-escalate as appropriate -Given concerns for lymphadenitis. And azithromycin -We will obtain blood cultures, no purulence or drainage that would be able to be cultured -We will get soft tissue ultrasound to assess for abscess #Hypothyroidism -Continue Synthroid -Check TSH #Type 2 diabetes mellitus -Glucose checks and sliding scale insulin -Holding home oral hypoglycemics #NAFLD -Continue ursodiol #LUSI -Home CPAP #DVT ppx: Lovenox subcu Monie Ruiz MD Time spent in the patient's overall evaluation,decision-making process, review of diagnostic data, adjustment of management, discussion with other providers, nursing nursing and ancillary staff involved in patient's care documentation, 60 minutes Charges/Coding Visit Charges Inpatient E&M: 78166 Init Hosp L2
[2022-08-17 13:31] LABS: AST(SGOT) 19 U/L (15-37); Alanine Aminotransfer ALT/SGPT 25 U/L (13-56); Albumin, Serum 2.6 g/dL (3.2-5.0); Alkaline Phosphatase 124 U/L (45-117); Bilirubin, Direct 0.64 mg/dL (0.00-0.30); Globulin 3.7 g/dL (2.2-4.2); Protein, Total 6.3 g/dL (6.4-8.2); Thyroid Stim Hormone (TSH) < 0.01 uIU/mL (0.358-3.74)
[2022-08-17] MEDS: 0.9% Normal Saline 1,000 ML 100 ML IV (13:50)
[2022-08-17 13:52] LABS: Erythrocyte Sedimentation Rate 12 mm/hr (0-30)
[2022-08-17 14:15] LABS: Lactic Acid 3.2 mmol/L (0.4-1.9)
[2022-08-17 14:16] LABS: Procalcitonin 0.49 ng/mL (0.00-0.09)
[2022-08-17] MEDS: 0.9% Normal Saline 1,000 ML 999 ML IV ×2 (14:25→18:40)
[2022-08-17] MEDS: 0.9% Saline Lock 10 ML Syringe IV (15:58)
[2022-08-17] MEDS: Morphine 2 MG/ML Syringe IV ×2 (15:58→20:17)
--- NOTE | 2022-08-17 16:37 | PCM.RX.CS ---
Consult Pharmacy has been consulted to manage selected antiobiotic: Vancomycin Type of Consult: New start Prior Doses of Antibiotics Received/Current Regimen: Medications Vancomycin HCl 2,000 mg/ (Sodium Chloride) 540 mls @ 250 mls/hr IV X1 ONE Stop: 08/17/22 17:09 Last Admin: 08/17/22 15:53 Dose: 250 mls/hr Labs: Sodium 139 mmol/L (136-145) 08/17/22 10:34 Potassium 3.4 mmol/L (3.5-5.1) L 08/17/22 10:34 Chloride 108 mmol/L (98-107) H 08/17/22 10:34 Carbon Dioxide 26.0 mmol/L (21.0-32.0) 08/17/22 10:34 Anion Gap 5 (5-15) 08/17/22 10:34 BUN 16 mg/dL (7-18) 08/17/22 10:34 Creatinine 0.88 mg/dL (0.55-1.02) 08/17/22 10:34 Est GFR (MDRD) Af Amer 84 mL/min (>60) 08/17/22 10:34 Est GFR (MDRD) Non-Af 69 mL/min (>60) 08/17/22 10:34 BUN/Creatinine Ratio 18.3 RATIO (10-20) 08/17/22 10:34 Glucose 104 mg/dL (74-106) 08/17/22 10:34 Weight used for dosin kg Estimated Creatinine Clearance: 56 Goal Trough: 15-20 mcg/mL Pharmacy Plan for Drug Dosinmg IV x1, 750mg IV q12h with trough prior to 4th dose. Pharmacy Service will continue to monitor and adjust dosing as required. Follow-Up Labs: Trough Vancomycin - 08/19 @ 9509
[2022-08-17 17:05] LABS: Bedside Glucose 76 mg/dL (74-106)
[2022-08-17 17:35] LABS: Reflex Lactate? Y
[2022-08-17 18:12] LABS: T4 Free Direct 2.43 ng/dL (0.76-1.46)
[2022-08-17 18:15] LABS: Lactic Acid 2.7 mmol/L (0.4-1.9)
[2022-08-17] MEDS: Potassium Chloride 10mEq/100mL 10 MEQ/100 ML IV.SOLN. 100 MEQ IV BOLUS (18:23)
[2022-08-17] MEDS: Ibuprofen 600 MG Tablet PO (19:57)
[2022-08-17] MEDS: Acetaminophen 325 MG Tablet 650 MG PO (21:40)
[2022-08-17] MEDS: FLUoxetine 20 MG Capsule 40 MG PO (21:41)
[2022-08-17] MEDS: Ursodiol 250 MG Tablet PO (21:41)
[2022-08-17 22:15] LABS: Bedside Glucose 99 mg/dL (74-106)
[2022-08-18] MEDS: 0.9% Normal Saline 1,000 ML 100 ML IV ×2 (00:15→14:06)
[2022-08-18 05:13] VITALS: BP 119/64; PULSE 82; RESP 16; TEMP 36.4; O2SAT 100
[2022-08-18 06:15] LABS: Absolute Lymphocyte Count 0.82 X10^3/uL (0.83-4.51); Absolute Neutrophil Count 10.3 X10^3/uL (2.0-7.7); Basophil# 0.02 X10^3/uL; Basophil% 0.2 % (0-1); Eosinophil# 0.19 X10^3/uL; Eosinophils% 1.5 % (0-5); Hematocrit 33.1 % (37-47); Lymphocyte # 0.82 X10^3/ul (0.83-4.51); Lymphocyte % 6.6 % (19-41); Mean Corp Hgb Conc 33.2 g/dL (32-36); Mean Corpuscular Hgb 29.3 pg (27.0-32.0); Mean Corpuscular Volume 88.3 fL (81-99); Mean Platelet Vol. 10.7 fl (6.2-12.0); Monocyte# 0.95 X10^3/uL; Monocyte% 7.6 % (0-10); NRBC Flagged by Analyzer 0 % (0-5); Neutrophil # 10.31 X10^3/uL (2.7-7.7); Platelet Count 126 K/mm3 (150-450); RBC Distribution Width CV 14.2 % (11.6-14.6); RBC Distribution Width SD 45.1 fl (35.1-43.9); Red Blood Count 3.75 M/mm3 (4.2-5.4); White Blood Count 12.4 K/mm3 (4.4-11.0)
[2022-08-18 06:51] LABS: Bedside Glucose 69 mg/dL (74-106)
[2022-08-18 07:00] LABS: Bedside Glucose 94 mg/dL (74-106)
[2022-08-18 07:06] LABS: ALB/GLOB Ratio 0.7 RATIO (0.9-2.4); AST(SGOT) 16 U/L (15-37); Alanine Aminotransfer ALT/SGPT 18 U/L (13-56); Alkaline Phosphatase 134 U/L (45-117); Anion Gap 6 (5-15); BUN 11 mg/dL (7-18); BUN/Creat Ratio 17.8 RATIO (10-20); Calcium,Total 7.8 mg/dL (8.5-10.1); Chloride 109 mmol/L (98-107); Creatinine, Serum 0.62 mg/dL (0.55-1.02); EST Glomerular Filtration Rate 103 mL/min (>60); Est Glom Filt Rate - Afr Amer 125 mL/min (>60); Estimated Creatinine Clearance 79.16 ml/min; Globulin 2.9 g/dL (2.2-4.2); Glucose 87 mg/dL (74-106); Potassium 3.1 mmol/L (3.5-5.1); Protein, Total 4.9 g/dL (6.4-8.2); Sodium Level 139 mmol/L (136-145)
--- NOTE | 2022-08-18 08:00 | US_ITS ---
STUDY: SUPERFICIAL ULTRASOUND - REASON FOR EXAM: Female, 66 years old. R thigh to assess for abscess TECHNIQUE: A superficial ultrasound was performed with real-time and static nunez-scale imaging. COMPARISON: None. FINDINGS: Hypoechoic subcutaneous collection in area of clinical concern measures 15 x 8 x 4 mm. Subcutaneous soft tissue edema. Multiple lymph nodes, largest measures up to 4.3 cm in long axis. US/Ext Non Vasc Limited/Soft Tiss IMPRESSION: Probable small subcutaneous fluid collection, seroma versus abscess in the area of clinical concern. Electronically Signed: Hector Dozier MD at 18:50 EDT ,
[2022-08-18] MEDS: Potassium Chloride Oral Tablet 20 MEQ 60 MEQ PO (08:31)
[2022-08-18] MEDS: 0.9% Saline Lock 10 ML Syringe IV (08:59)
[2022-08-18] MEDS: Morphine 2 MG/ML Syringe IV ×2 (08:59→19:33)
[2022-08-18 10:26] VITALS: BP 134/81; PULSE 84; RESP 16; TEMP 36.8; O2SAT 97
[2022-08-18] MEDS: Ursodiol 250 MG Tablet PO ×2 (10:32→20:24)
[2022-08-18] MEDS: Enoxaparin 40 MG/0.4 ML Syringe SC (10:32)
--- NOTE | 2022-08-18 11:08 | CASEMGMT ---
ASH ALFREDO Assessment: Face to Face with pt for initial transition planning/care coordination assessment. ASH ALFREDO introduced self and role at [facility], pt voices understanding and consents to assessment. Pt is A/O x4 and answers all questions appropriately at this time. Pt sitting up in bed in no distress. Care providers, pharmacy, and demographics verified/updated. Admitting Dx: cellulitis R thigh PCP:Michelle Specialists:Friend, GI Preferred Pharmacy: [facility] Retail Insurance: [employer] Prescription Benefit: yes LNOK: Luly Reeves dtr Living Arrangements: Pt lives with , dtr, son in law and grandson in a two story home with 15 steep steps to enter with a rail. Pt reports her bedroom and bathroom are on the main level. Pt reports being I in ADL's and denies concerns at home. Transportation: Pt drives self and denies concerns with transportation. DME/HHC/SNF: Pt has a BGM with sufficient supplies. Pt has a CPAP. She does not use AD. Pt has had [facility] in the past and denies SNF stays. Pt states no concerns with going home at time of dc. Pt states no further concerns/needs. CM to follow. Advised pt to ask CM if any further question/concerns/needs arise, voices understanding. Pt Goal: Home Plan: Home
[2022-08-18 12:11] LABS: Bedside Glucose 108 mg/dL (74-106)
[2022-08-18 14:13] VITALS: BP 125/73; PULSE 94; RESP 16; TEMP 37.2; O2SAT 100
--- NOTE | 2022-08-18 14:49 | PN_ITS ---
Subjective Subjective Patient seen and examined. She says she feels much better. She states the redness and swelling on her right inner thigh is improving. She denies any fever or chills and review of systems otherwise negative. She has remained hemodynamically stable. Objective Data Objective Data Vital Signs: Vital Signs Temp Pulse Resp BP Pulse Ox O2 Del Method 99.0 F 94 16 125/73 H 100 Room Air 08/18/22 14:13 08/18/22 14:13 08/18/22 14:13 08/18/22 14:13 08/18/22 14:13 08/18/22 14:13 Oxygen Delivery Method Room Air Weight: 189 lb 4.8 oz Body Mass Index (BMI) 32.5 Intake & Output: Intake and Output for Last 24 Hours 08/16/22 08/17/22 08/18/22 23:59 23:59 23:59 Intake Total 3518.42 / 3518.42 2938.33 / 2938.33 Output Total 725 / 725 900 / 900 Balance 2793.42 / 2793.42 2038.33 / 2038.33 Lab / Micro Data Result Diagrams: 08/18/22 05:47 08/18/22 05:47 Labs: Laboratory Results - last 24 hr 08/17/22 10:34: Free T4 2.43 H 08/17/22 16:41: POC Glucose 76 08/17/22 17:30: Lactic Acid 2.7 H* 08/17/22 21:37: POC Glucose 99 08/18/22 05:47: WBC 12.4 H, RBC 3.75 L, Hgb 11.0 L, Hct 33.1 L, MCV 88.3, MCH 29.3, MCHC 33.2, RDW Std Deviation 45.1 H, RDW Coeff of Krista 14.2, Plt Count 126 L, MPV 10.7, Immature Gran % (Auto) 1.100 H, Neut % (Auto) 83.0 H, Lymph % (Auto) 6.6 L, [place] % (Auto) 7.6, Eos % (Auto) 1.5, Baso % (Auto) 0.2, Absolute Neuts (auto) 10.3 H, Absolute Lymphs (auto) 0.82 L, Nucleated RBC % 0 08/18/22 05:47: Sodium 139, Potassium 3.1 L, Chloride 109 H, Carbon Dioxide 24.0, Anion Gap 6, BUN 11, Creatinine 0.62, Estim Creat Clear Calc 79.16, Est GFR (MDRD) Af Amer 125, Est GFR (MDRD) Non-Af 103, BUN/Creatinine Ratio 17.8, Glucose 87, Calcium 7.8 L, Total Bilirubin 1.70 H, AST 16, ALT 18, Alkaline Phosphatase 134 H, C-React Prot Ext Range 229.00 H, Total Protein 4.9 L, Albumin 2.0 L, Globulin 2.9, Albumin/Globulin Ratio 0.7 L 08/18/22 06:21: POC Glucose 69 L 08/18/22 06:42: POC Glucose 94 08/18/22 11:35: POC Glucose 108 H Physical Exam Const alert, oriented x3 and no apparent distress Constitutional Narrative: obese General Appearance: cooperative HEENT normocephalic, head/scalp atraumatic, moist oral mucous membranes and oropharynx normal Eyes PERRL and EOMs intact bilaterally Neck supple and no JVD General: trachea midline Lymph Lymphatic: no lymphadenopathy noted Resp normal respiratory effort, normal air movement and clear to auscultation bilaterally Cardio regular rate, regular rhythm, S1 normal heart sound, S2 normal heart sound and no murmurs GI normal to inspection, nondistended, normoactive bowel sounds, soft to palpation, non-tender and non-distended Extremity normal capillary refill, no clubbing, cyanosis or edema and no calf tenderness Skin Skin Narrative: erythema and mild differential warmth over right upper and inner thigh, measuring about 20cm x 12 cm. Has a firm area of induration within the erythematous area, mildly tender. Neuro CN's II-XII intact bilaterally, no focal motor deficits, no sensory deficits noted and deep tendon reflexes 2+ bilaterally Motor Exam: strength 5/5 throughout and general weakness Psych thought process normal, cooperative and affect normal Appearance: appropriate Assessment & Plan Assessment/Plan (1) Cellulitis of right thigh: PLAN: Plan #Right thigh cellulitis * IV vancomycin and Zosyn. Will DC azithromycin * WBC is trending downwards. Blood cultures pending. * Soft tissue ultrasound done to evaluate for abscess and is pending. * #Hypokalemia: Potassium is 3.1. Will replace and trend. #Hypothyroidism: On Synthroid. TSH is low at less than 0.01 and free T4 is elevated. We will therefore cut down Synthroid from 100 mcg daily to 75 mcg daily. #Type 2 diabetes mellitus: On insulin sliding scale. Accu-Cheks ACHS. #Nonalcoholic fatty liver disease: On ursodiol #LUIS: On CPAP nightly DVT prophylaxis: Lovenox Charges/Coding Visit Charges Inpatient E&M: 43486 Subs Hosp L2
--- NOTE | 2022-08-18 16:22 | CHAPLAIN ---
Type of Pastoral Visit _x__ Initial Visit ___ Follow-up Visit ___ On-call Visit ___ General Patient Visit ___ Spiritual Assessment ___ Family Conference ___ Bereavement ___ Rapid Response ___ Code Blue ___ Other (describe below) Pastoral Care Referral From _x__ Patient ___ Family ___ Nurse ___ Physician ___ Bilingual Secretary ___ Plant Ecologist ___ Other (describe below) Sacrament/Intervention _x__ Active listening ___ Anointing ___ Congregational ___ Bereavement ___ Communion ___ April exploration ___ _x__ Life review _x__ Prayer ___ Reconciliation ___ Sacrament of Sick ___ Supportive presence ___ Wedding ___ Other (describe below) Pastoral Comments patient is resting but welcomes the visit and prayers for support; pt explains her health concerns and also speaks of her concern for spouse who has some dementia issues; pt has family and quaker support;
[2022-08-18 17:21] LABS: Bedside Glucose 59 mg/dL (74-106)
[2022-08-18 20:00] VITALS: BP 144/77; PULSE 101; RESP 16; TEMP 38.1; O2SAT 98
[2022-08-18 20:20] VITALS: BP 144/77; PULSE 101; RESP 16; TEMP 38.1; O2SAT 98
[2022-08-18] MEDS: Ibuprofen 600 MG Tablet PO (20:23)
[2022-08-18] MEDS: FLUoxetine 20 MG Capsule 40 MG PO (20:24)
[2022-08-18 22:02] VITALS: TEMP 37.4
[2022-08-18 22:05] LABS: Bedside Glucose 84 mg/dL (74-106)
[2022-08-18] MEDS: DiphenhydrAMINE 50 MG/ML Syringe 25 MG IV (22:29)
[2022-08-19 02:33] VITALS: BP 132/82; PULSE 79; RESP 16; TEMP 36.9; O2SAT 98
[2022-08-19 04:35] LABS: Absolute Lymphocyte Count 1.29 X10^3/uL (0.83-4.51); Basophil# 0.04 X10^3/uL; Basophil% 0.4 % (0-1); Eosinophil# 0.29 X10^3/uL; Eosinophils% 2.8 % (0-5); Hematocrit 34.9 % (37-47); Hemoglobin 11.1 g/dL (12.0-15.0); Lymphocyte # 1.29 X10^3/ul (0.83-4.51); Lymphocyte % 12.5 % (19-41); Mean Corp Hgb Conc 31.8 g/dL (32-36); Mean Corpuscular Hgb 29.6 pg (27.0-32.0); Mean Corpuscular Volume 93.1 fL (81-99); Mean Platelet Vol. 9.9 fl (6.2-12.0); Monocyte# 0.66 X10^3/uL; Monocyte% 6.4 % (0-10); NRBC Flagged by Analyzer 0 % (0-5); Neutrophil # 7.99 X10^3/uL (2.7-7.7); Neutrophil % 77.4 % (47-70); Platelet Count 158 K/mm3 (150-450); RBC Distribution Width CV 14.3 % (11.6-14.6); RBC Distribution Width SD 48.3 fl (35.1-43.9); Red Blood Count 3.75 M/mm3 (4.2-5.4); White Blood Count 10.3 K/mm3 (4.4-11.0)
[2022-08-19 05:02] LABS: Vancomycin, Trough Level 9.7 ug/mL (5.0-15.0)
[2022-08-19 05:21] LABS: ALB/GLOB Ratio 0.6 RATIO (0.9-2.4); AST(SGOT) 14 U/L (15-37); Alanine Aminotransfer ALT/SGPT 16 U/L (13-56); Albumin, Serum 1.9 g/dL (3.2-5.0); Alkaline Phosphatase 140 U/L (45-117); Anion Gap 4 (5-15); BUN 7 mg/dL (7-18); BUN/Creat Ratio 11.3 RATIO (10-20); Calcium,Total 7.9 mg/dL (8.5-10.1); Chloride 113 mmol/L (98-107); Creatinine, Serum 0.62 mg/dL (0.55-1.02); EST Glomerular Filtration Rate 103 mL/min (>60); Est Glom Filt Rate - Afr Amer 125 mL/min (>60); Estimated Creatinine Clearance 79.16 ml/min; Globulin 3.1 g/dL (2.2-4.2); Glucose 81 mg/dL (74-106); Potassium 3.3 mmol/L (3.5-5.1); Sodium Level 139 mmol/L (136-145)
--- NOTE | 2022-08-19 05:29 | PCM.RX.CS ---
Consult Pharmacy has been consulted to manage selected antiobiotic: Vancomycin Type of Consult: Follow-up Prior Doses of Antibiotics Received/Current Regimen: Medications Vancomycin HCl 1,250 mg/ (Sodium Chloride) 275 mls @ 167 mls/hr IV Q12H ANDREA Vancomycin HCl 750 mg/ Sodium (Chloride) 265 mls @ 250 mls/hr IV Q12H ANDREA Stop: 08/19/22 06:30 Last Admin: 08/19/22 04:49 Dose: 250 mls/hr Labs: Sodium 139 mmol/L (136-145) 08/19/22 04:27 Potassium 3.3 mmol/L (3.5-5.1) L 08/19/22 04:27 Chloride 113 mmol/L (98-107) H 08/19/22 04:27 Carbon Dioxide 22.0 mmol/L (21.0-32.0) 08/19/22 04:27 Anion Gap 4 (5-15) L 08/19/22 04:27 BUN 7 mg/dL (7-18) 08/19/22 04:27 Creatinine 0.62 mg/dL (0.55-1.02) 08/19/22 04:27 Est GFR (MDRD) Af Amer 125 mL/min (>60) 08/19/22 04:27 Est GFR (MDRD) Non-Af 103 mL/min (>60) 08/19/22 04:27 BUN/Creatinine Ratio 11.3 RATIO (10-20) 08/19/22 04:27 Glucose 81 mg/dL (74-106) 08/19/22 04:27 Vancomycin Trough 9.7 ug/mL (5.0-15.0) 08/19/22 04:27 Weight used for dosin.9 kg Estimated Creatinine Clearance: 97 Goal Trough: 15-20 mcg/mL Pharmacy Plan for Drug Dosing: Vancomycin trough level of 9.7 was below the target range of 15-20. A new dose of 1250mg q12h will give an estimated trough of 16.2, per dosing calculator. Will re-draw a trough prior to fourth dose of the new regimen. Pharmacy Service will continue to monitor and adjust dosing as required. Follow-Up Labs: Trough Vancomycin Labs to be done on [date and time ordered]: 08/21/22 @[id number]
[2022-08-19] MEDS: Levothyroxine 75 MCG Tablet PO (06:37)
[2022-08-19 07:10] LABS: Bedside Glucose 75 mg/dL (74-106)
[2022-08-19 09:07] VITALS: BP 121/73; PULSE 81; RESP 16; TEMP 36.6; O2SAT 100
[2022-08-19] MEDS: Potassium Chloride Oral Tablet 20 MEQ 40 MEQ PO (09:24)
[2022-08-19] MEDS: Ursodiol 250 MG Tablet PO ×2 (09:24→20:48)
[2022-08-19] MEDS: Enoxaparin 40 MG/0.4 ML Syringe SC (09:24)
--- NOTE | 2022-08-19 10:51 | PN_ITS ---
Subjective Subjective Patient seen and examined. She still complains of pain and redness over the right upper inner thigh. She feels redness extended yesterday outside the margins demarcated. She denies fever or chills or any other symptoms. Review of systems otherwise negative. Objective Data Objective Data Vital Signs: Vital Signs Temp Pulse Resp BP Pulse Ox O2 Del Method 97.9 F 81 16 121/73 H 100 Room Air 08/19/22 09:07 08/19/22 09:07 08/19/22 09:07 08/19/22 09:07 08/19/22 09:07 08/19/22 09:07 Oxygen Delivery Method Room Air Weight: 189 lb 4.8 oz Body Mass Index (BMI) 32.5 Intake & Output: Intake and Output for Last 24 Hours 08/17/22 08/18/22 08/19/22 23:59 23:59 23:59 Intake Total 3518.42 / 3518.42 4173.33 / 4173.33 565 / 565 Output Total 725 / 725 1800 / 1800 400 / 400 Balance 2793.42 / 2793.42 2373.33 / 2373.33 165 / 165 Lab / Micro Data Result Diagrams: 08/19/22 04:27 08/19/22 04:27 Labs: Laboratory Results - last 24 hr 08/18/22 11:35: POC Glucose 108 H 08/18/22 16:42: POC Glucose 59 L 08/18/22 20:28: POC Glucose 84 08/19/22 04:27: WBC 10.3, RBC 3.75 L, Hgb 11.1 L, Hct 34.9 L, MCV 93.1 D, MCH 29.6, MCHC 31.8 L, RDW Std Deviation 48.3 H, RDW Coeff of Krista 14.3, Plt Count 158, MPV 9.9, Immature Gran % (Auto) 0.500, Neut % (Auto) 77.4 H, Lymph % (Auto) 12.5 L, [place] % (Auto) 6.4, Eos % (Auto) 2.8, Baso % (Auto) 0.4, Absolute Neuts (auto) 8.0 H, Absolute Lymphs (auto) 1.29, Nucleated RBC % 0 08/19/22 04:27: Sodium 139, Potassium 3.3 L, Chloride 113 H, Carbon Dioxide 22.0, Anion Gap 4 L, BUN 7, Creatinine 0.62, Estim Creat Clear Calc 79.16, Est GFR (MDRD) Af Amer 125, Est GFR (MDRD) Non-Af 103, BUN/Creatinine Ratio 11.3, Glucose 81, Calcium 7.9 L, Total Bilirubin 1.00, AST 14 L, ALT 16, Alkaline Phosphatase 140 H, Total Protein 5.0 L, Albumin 1.9 L, Globulin 3.1, Albumin/Globulin Ratio 0.6 L 08/19/22 04:27: Vancomycin Trough 9.7 08/19/22 06:39: POC Glucose 75 Radiography Diagnostic Testing: Radiology Impression Soft Tissue Ultrasound 08/18/22 08:00 IMPRESSION: Probable small subcutaneous fluid collection, seroma versus abscess in the area of clinical concern. Electronically Signed: Hector Dozier MD at 18:50 EDT Reading Location ID and State: [facility] / [place] Tel , Service support , Physical Exam Const alert, oriented x3 and no apparent distress Constitutional Narrative: obese General Appearance: cooperative HEENT normocephalic, head/scalp atraumatic, moist oral mucous membranes and oropharynx normal Eyes PERRL and EOMs intact bilaterally Neck supple and no JVD General: trachea midline Lymph Lymphatic: no lymphadenopathy noted Resp normal respiratory effort, normal air movement and clear to auscultation bilaterally Cardio regular rate, regular rhythm, S1 normal heart sound, S2 normal heart sound and no murmurs GI normal to inspection, nondistended, normoactive bowel sounds, soft to palpation, non-tender and non-distended Extremity normal capillary refill, no clubbing, cyanosis or edema and no calf tenderness Skin Skin Narrative: erythema and mild differential warmth over right upper and inner thigh, measuring about 20cm x 12 cm. Has a firm area of induration within the erythematous area, mildly tender. area of induration is ~ 15x 8cm. Area of erythema has worsened Neuro CN's II-XII intact bilaterally, no focal motor deficits, no sensory deficits noted and deep tendon reflexes 2+ bilaterally Motor Exam: strength 5/5 throughout and general weakness Psych thought process normal, cooperative and affect normal Appearance: appropriate Assessment & Plan Assessment/Plan (1) Cellulitis of right thigh: PLAN: Plan #Right thigh cellulitis * IV vancomycin and Zosyn. * wbc is down to 10.3 * erythema has extended further down her anterior thigh, and area of fluctuance persists * soft issue ultrasound showed hypoechoic subcutaneous collection in area of clinical cancer measuring 15 x 8 x 4mm and multiple lymph nodes. * plastic surgery consulted for possible I&D * #Hypokalemia: Potassium is 3.3. Will replace and trend. #Hypothyroidism: On Synthroid. TSH is low at less than 0.01 and free T4 is elevated. synthroid cut down to 75mcg daily #Type 2 diabetes mellitus: On insulin sliding scale. Accu-Cheks ACHS. #Nonalcoholic fatty liver disease: On ursodiol #LUIS: On CPAP nightly DVT prophylaxis: Lovenox Charges/Coding Visit Charges Inpatient E&M: 42991 Subs Hosp L2
[2022-08-19 11:40] LABS: Bedside Glucose 66 mg/dL (74-106)
[2022-08-19 13:38] VITALS: BP 129/74; PULSE 77; RESP 18; TEMP 36.4; O2SAT 100
--- NOTE | 2022-08-19 14:47 | CON.PCM_ITS ---
Assessment & Plan Assessment/Plan (1) Abscess of right thigh: (2) Cellulitis of right thigh: (3) Diabetes mellitus, type II: QUALIFIERS: Diabetes mellitus long term care pharmacist insulin use: without long term care pharmacist use Diabetes mellitus complication status: with other specified complication Qualified Code(s): E11.69 - Type 2 diabetes mellitus with other specified complication PLAN: Plan Medical records reviewed. Radiology and labs reviewed. Patient has a large diabetic abscess right medial thigh. Some improvement is noted with IV antibiotics, but it won't cure the problem without operative intervention. Will proceed with incision and drainage and excisional debridement of this diabetic abscess. Will leave the wound open and begin wound care with the VAC. After discharge will followup at [facility]. If there is a plateau in the healing process, can proceed with delayed closure with skin grafting. If skin grafting is needed in the future, that is an elective procedure. Her HgbA1c would need to be less than 8 before proceeding with that skin graft surgery. Tissue excised will be sent to Pathology for analysis to rule out carcinoma and to Microbiology for culture. A positive culture will necessitate antibiotic therapy. Anticipate increased metabolic demands from the infection and surgical wound. Will check a Prealbumin and encourage nutritional supplementation with protein to help the healing process. Will proceed with the surgery tomorrow under general anesthesia. Patient was informed of the risks and complications of the procedure including alternatives to surgery. These were discussed with the patient personally. Patient voices understanding and wishes to proceed. Potential risks and complications included but not inclusive of bleeding, infection, hematoma, bruising, swelling, loss of sensation to skin, wound breakdown, need for wound care, poor scarring, poor aesthetic outcome, intra operative cardiac or neurologic events, DVT, PE, and reaction to anesthesia. HPI Consult Data Date of Consult: 08/19/22 PCP / Referring MD: Dr. Sheryl Portillo MD HPI Narrative Reason for Consultation: Diabetic abscess right medial thigh. HPI Narrative: 66-year-old female with a history of diabetes mellitus was admitted with a diabetic abscess right medial thigh due to increasing redness, and pain, and swelling. She also states she had fevers at home to 102. She initially came to the ED on 08/15/22. An ultrasound was done which showed no DVT. She was discharged home. She returned to the ED the next day with a fever. Her WBC was 15.4. She was given a dose of Unasyn and discharged on Keflex. She returned to the ED the next day with continued fever. WBC increased to 17. She was given another dose of Unasyn and admitted. Her antibiotics were later changed to Vancomycin and Zosyn. The redness has improved but is persistent in the right m edial thigh. Ultrasound was done which showed hypoechoic subcutaneous collection in area of clinical concern measures 15 x 8 x 4 mm. Subcutaneous soft tissue edema. Multiple lymph nodes, largest measures up to 4.3 cm in long axis. Probable small subcutaneous fluid collection, seroma versus abscess in the area of clinical concern. I was asked to evaluate this patient for surgical options for treatment. [facility]LY [facility] Medical History Abnormal EKG Abscess of right thigh Anemia Asthma BPV (benign positional vertigo) Cellulitis of right thigh Depression Diabetes mellitus, type II DVT (deep vein thrombosis) in Edema Elevated liver enzymes Fatty liver GERD (gastroesophageal reflux disease) Hormone imbalance Hot flashes HTN (hypertension) Hypocalcemia Hypothyroidism Hypoxia Obstructive sleep apnea Open wound of right thigh Pneumonia due to COVID-19 virus Pure hypercholesterolemia, unspecified Sciatica Staph infection Syncope Vitamin D deficiency Home Medications fluoxetine 20 mg capsule 40 mg PO QHS antidepressant 06/05/14 [History Last Taken 08/16/22] semaglutide 14 mg tablet (Rybelsus) 14 mg PO DAILY 04/29/22 [History Last Taken 08/17/22] ursodiol 250 mg tablet 250 mg PO BID #180 tabs 07/22/22 [Rx Last Taken 08/16/22] cephalexin 500 mg capsule 500 mg PO Q6 #28 CAPSULES 08/16/22 [Rx Last Taken 08/17/22] calcium 600 mg capsule 1,200 mg PO DAILY Check with primary doctor 08/17/22 [History Last Taken Unknown] cholecalciferol (vitamin D3) 125 mcg (5,000 unit) tablet (Vitamin D3) 125 mcg PO DAILY SUPPLEMENT 08/17/22 [History Last Taken 08/16/22] levothyroxine 200 mcg tablet 200 mcg PO DAILY THYROID 08/17/22 [History Last Taken 08/17/22] metformin 1,000 mg tablet 1,000 mg PO BID DM 08/17/22 [History Last Taken 08/17/22] vitamin E 670 mg (1,000 unit) capsule 670 mg PO DAILY SUPPLEMENT 08/17/22 [History Last Taken 08/16/22] Allergy/AdvReac Type Severity Reaction Status Date / Time Acrylic Acid and Acrylates Allergy Other Verified 08/17/22 10:21 [steri-strips (acrylate)] adhesive tape Allergy BLISTERS/SC Verified 08/17/22 10:21 ARS codeine Allergy Shortness Verified 08/17/22 10:21 of breath Sulfa (Sulfonamide Allergy Rash Verified 08/17/22 10:21 Antibiotics) Tetanus Vaccines and Toxoid Allergy Swelling Verified 08/17/22 10:21 [Tetanus Vaccines & Toxoid] meperidine HCl [From Demerol] AdvReac Itching Verified 08/17/22 10:21 Family History Mother Carotid stenosis Hx of CABG Heart disease CHF Father Diabetes Surgical History H/O shoulder surgery History of cholecystectomy History of gastric bypass History of hemiarthroplasty of left shoulder (03/12/18) History of hysterectomy History of tonsillectomy History of umbilical hernia repair Humeral head fracture Status post reverse total shoulder replacement Social History household members: spouse Smoking Status: Never smoker alcohol intake: never substance use type: does not use caffeine: Yes Type: carbonated beverages Number of servings: 3 ROS ROS Narrative REVIEW OF SYSTEMS General - Has fever and fatigue. Denies weight loss. Eyes - Denies cataracts and glaucoma. ENT - Denies nasal congestion and sore throat. Endocrine - Denies excessive thirst and urination. Skin - Denies skin cancer. On right medial thigh is a large indurated abscess with cellulitis. Musculoskeletal - Denies joint pain, joint stiffness, weakness of muscles and joints, back pain, and arthritis. Neuro - Denies headaches. Cardiovascular - Denies chest pain, fatigue, and shortness of breath with exertion. Psych - Denies anxiety and depression. Respiratory - Denies chronic cough and shortness of breath. Gastrointestinal - Denies nausea, vomiting, diarrhea, and constipation. Hematologic - Denies abnormal bruising and bleeding. Genitourinary - Denies hematuria and urinary frequency. Physical Exam Narrative PHYSICAL EXAMINATION General - Alert and Oriented. HEENT - PERRL. EOMI. Throat is clear. Neck - Supple and nontender. No cervical adenopathy. Lungs - Clear to auscultation. Heart - Regular rate and rhythm. Abdomen - Soft and nondistended. Extremities - No clubbing or cyanosis. Moderate edema right thigh. No inguinal adenopathy. Dorsalis pedis pulses are palpable. On the right medial thigh is a large indurated area with surrounding cellulitis. Has decreased according to the patient after starting IV antibiotics. Area of induration measures 12 x 6 cm. Surrounding cellulitis measures 20 x 15 cm. Neuro - CN II-XII grossly intact. Psych - Normal mood and affect. Medical Records Data Attestation: I reviewed the patient's medical records Lab / Micro Data Attestation: I reviewed the patient's lab results. Result Diagrams: 08/21/22 04:31 08/21/22 04:31 Labs: Laboratory Results - last 24 hr 08/18/22 16:42: POC Glucose 59 L 08/18/22 20:28: POC Glucose 84 08/19/22 04:27: WBC 10.3, RBC 3.75 L, Hgb 11.1 L, Hct 34.9 L, MCV 93.1 D, MCH 29.6, MCHC 31.8 L, RDW Std Deviation 48.3 H, RDW Coeff of Krista 14.3, Plt Count 158, MPV 9.9, Immature Gran % (Auto) 0.500, Neut % (Auto) 77.4 H, Lymph % (Auto) 12.5 L, [place] % (Auto) 6.4, Eos % (Auto) 2.8, Baso % (Auto) 0.4, Absolute Neuts (auto) 8.0 H, Absolute Lymphs (auto) 1.29, Nucleated RBC % 0 08/19/22 04:27: Sodium 139, Potassium 3.3 L, Chloride 113 H, Carbon Dioxide 22.0, Anion Gap 4 L, BUN 7, Creatinine 0.62, Estim Creat Clear Calc 79.16, Est GFR (MDRD) Af Amer 125, Est GFR (MDRD) Non-Af 103, BUN/Creatinine Ratio 11.3, Glucose 81, Calcium 7.9 L, Total Bilirubin 1.00, AST 14 L, ALT 16, Alkaline Phosphatase 140 H, Total Protein 5.0 L, Albumin 1.9 L, Globulin 3.1, Albumin/Globulin Ratio 0.6 L 08/19/22 04:27: Vancomycin Trough 9.7 08/19/22 06:39: POC Glucose 75 08/19/22 10:50: POC Glucose 66 L STUDY: ? SUPERFICIAL ULTRASOUND - REASON FOR EXAM: ? Female, 66 years old.? R thigh to assess for abscess TECHNIQUE: ? A superficial ultrasound was performed with real-time and static nunez-scale imaging. COMPARISON: ? None. FINDINGS: Hypoechoic subcutaneous collection in area of clinical concern measures 15 x 8 x 4 mm. Subcutaneous soft tissue edema. Multiple lymph nodes, largest measures up to 4.3 cm in long axis. US/Ext Non Vasc Limited/Soft Tiss IMPRESSION: ? Probable small subcutaneous fluid collection, seroma versus abscess in the area of clinical concern. ? Electronically Signed: Hector Dozier MD at 18:50 EDT Reading Location ID and State: [facility] / [place] Tel , Service support? , Radiology Impression Soft Tissue Ultrasound 08/18/22 08:00 IMPRESSION: Probable small subcutaneous fluid collection, seroma versus abscess in the area of clinical concern. Electronically Signed: Hector Dozier MD at 18:50 EDT Reading Location ID and State: [facility] / [place] Tel , Service support , Charges/Coding Visit Charges Inpatient E&M: 13849 Init Hosp L2 (ICD-10 - L02.415, L03.115, E11.9)
[2022-08-19 17:11] LABS: Bedside Glucose 96 mg/dL (74-106)
[2022-08-19 20:45] VITALS: BP 128/72; PULSE 75; RESP 16; TEMP 36.6; O2SAT 100
[2022-08-19] MEDS: Ibuprofen 600 MG Tablet PO (20:47)
[2022-08-19] MEDS: DiphenhydrAMINE 25 MG Capsule PO (20:47)
[2022-08-19] MEDS: FLUoxetine 20 MG Capsule 40 MG PO (20:47)
[2022-08-19] MEDS: Morphine 2 MG/ML Syringe IV (20:48)
[2022-08-19 21:45] LABS: Bedside Glucose 92 mg/dL (74-106)
[2022-08-20] VITALS (11 sets, daily range): BP systolic 133–152; BP diastolic 76–91; PULSE 50–110; RESP 14–18; TEMP 36.6–37; O2SAT 95–100; BMI 32.5
--- NOTE | 2022-08-20 06:00 | EKG12_ITS ---
Test Reason : AM EKG Blood Pressure : / mmHG Vent. Rate : 078 BPM Atrial Rate : 078 BPM P-R Int : 162 ms QRS Dur : 072 ms QT Int : 402 ms P-R-T Axes : 014 009 041 degrees QTc Int : 458 ms Normal sinus rhythm Normal ECG When compared with ECG of 27-JUL-2022 10:31, Premature supraventricular complexes are no longer Present Confirmed by AMMY BOOKER, WILLARD ([id number]), newspaper or periodical editor DAREK WARNER ([id number]) on 08/21/2022 7:49:01 AM Referred By: DR RODAS Confirmed By:WILLARD GIMENEZ MD
[2022-08-20 06:39] LABS: Absolute Lymphocyte Count 1.61 X10^3/uL (0.83-4.51); Absolute Neutrophil Count 5.2 X10^3/uL (2.0-7.7); Basophil# 0.04 X10^3/uL; Basophil% 0.5 % (0-1); Eosinophil# 0.46 X10^3/uL; Eosinophils% 5.7 % (0-5); Hematocrit 34.1 % (37-47); Lymphocyte # 1.61 X10^3/ul (0.83-4.51); Mean Corp Hgb Conc 32.3 g/dL (32-36); Mean Corpuscular Hgb 28.7 pg (27.0-32.0); Mean Platelet Vol. 9.7 fl (6.2-12.0); Monocyte# 0.61 X10^3/uL; Monocyte% 7.6 % (0-10); NRBC Flagged by Analyzer 0 % (0-5); Neutrophil # 5.24 X10^3/uL (2.7-7.7); Neutrophil % 65.2 % (47-70); Platelet Count 195 K/mm3 (150-450); RBC Distribution Width CV 14.2 % (11.6-14.6); RBC Distribution Width SD 45.1 fl (35.1-43.9); Red Blood Count 3.83 M/mm3 (4.2-5.4)
[2022-08-20 07:14] LABS: ALB/GLOB Ratio 0.6 RATIO (0.9-2.4); AST(SGOT) 13 U/L (15-37); Alanine Aminotransfer ALT/SGPT 14 U/L (13-56); Alkaline Phosphatase 152 U/L (45-117); Anion Gap 4 (5-15); BUN 7 mg/dL (7-18); BUN/Creat Ratio 11.7 RATIO (10-20); Calcium,Total 8.3 mg/dL (8.5-10.1); Chloride 110 mmol/L (98-107); EST Glomerular Filtration Rate 108 mL/min (>60); Est Glom Filt Rate - Afr Amer 130 mL/min (>60); Globulin 3.2 g/dL (2.2-4.2); Glucose 74 mg/dL (74-106); Potassium 3.6 mmol/L (3.5-5.1); Protein, Total 5.2 g/dL (6.4-8.2); Sodium Level 139 mmol/L (136-145)
[2022-08-20 08:39] LABS: Hemoglobin A1c 4.6 % (3.8-5.6)
[2022-08-20 11:51] LABS: Bedside Glucose 82 mg/dL (74-106)
--- NOTE | 2022-08-20 12:01 | PN_ITS ---
Subjective Subjective Patient seen and examined. She had no complaints. The redness of the right yupper thigh has improved. She still does have the area of fluctuance. Review of systems otherwise negative. Plastic surgery on board and assist with surgery today. Objective Data Objective Data Vital Signs: Vital Signs Temp Pulse Resp BP Pulse Ox O2 Del Method 97.8 F 50 L 16 151/86 H 98 Room Air 08/20/22 07:58 08/20/22 09:00 08/20/22 07:58 08/20/22 07:58 08/20/22 09:35 08/20/22 09:35 Oxygen Delivery Method Room Air Weight: 189 lb 4.622 oz Body Mass Index (BMI) 32.5 Intake & Output: Intake and Output for Last 24 Hours 08/18/22 08/19/22 08/20/22 23:59 23:59 23:59 Intake Total 4173.33 / 4173.33 940 / 940 1360 / 1360 Output Total 1800 / 1800 400 / 400 900 / 900 Balance 2373.33 / 2373.33 540 / 540 460 / 460 Lab / Micro Data Result Diagrams: 08/20/22 06:00 08/20/22 06:00 Labs: Laboratory Results - last 24 hr 08/19/22 16:51: POC Glucose 96 08/19/22 21:23: POC Glucose 92 08/20/22 06:00: WBC 8.0, RBC 3.83 L, Hgb 11.0 L, Hct 34.1 L, MCV 89.0, MCH 28.7, MCHC 32.3, RDW Std Deviation 45.1 H, RDW Coeff of Krista 14.2, Plt Count 195, MPV 9.7, Immature Gran % (Auto) 1.000 H, Neut % (Auto) 65.2, Lymph % (Auto) 20.0, [place] % (Auto) 7.6, Eos % (Auto) 5.7 H, Baso % (Auto) 0.5, Absolute Neuts (auto) 5.2, Absolute Lymphs (auto) 1.61, Nucleated RBC % 0 08/20/22 06:00: Sodium 139, Potassium 3.6, Chloride 110 H, Carbon Dioxide 25.0, Anion Gap 4 L, BUN 7, Creatinine 0.60, Estim Creat Clear Calc 81.80, Est GFR (MDRD) Af Amer 130, Est GFR (MDRD) Non-Af 108, BUN/Creatinine Ratio 11.7, Glucose 74, Calcium 8.3 L, Total Bilirubin 0.80, AST 13 L, ALT 14, Alkaline Phosphatase 152 H, Total Protein 5.2 L, Albumin 2.0 L, Globulin 3.2, Albumin/Globulin Ratio 0.6 L 08/20/22 06:00: Hemoglobin A1c 4.6 08/20/22 11:30: POC Glucose 82 Physical Exam Const alert, oriented x3 and no apparent distress Constitutional Narrative: obese General Appearance: cooperative and well developed HEENT normocephalic, head/scalp atraumatic, moist oral mucous membranes and oropharynx normal Eyes PERRL and EOMs intact bilaterally Neck no lymphadenopathy, supple and no JVD General: trachea midline Lymph Lymphatic: no lymphadenopathy noted Resp normal respiratory effort, normal air movement and clear to auscultation bilaterally Cardio regular rate, regular rhythm, S1 normal heart sound, S2 normal heart sound and no murmurs GI normal to inspection, nondistended, normoactive bowel sounds, soft to palpation, non-tender and non-distended Extremity normal capillary refill, no clubbing, cyanosis or edema and no calf tenderness Skin Skin Narrative: erythema and mild differential warmth over right upper and inner thigh has improved markedly. Still sas a firm area of induration within the erythematous area, mildly tender. area of induration is ~ 15x 8cm. Neuro CN's II-XII intact bilaterally, no focal motor deficits, no sensory deficits noted and deep tendon reflexes 2+ bilaterally Motor Exam: strength 5/5 throughout and general weakness Psych thought process normal, cooperative and affect normal Appearance: appropriate Assessment & Plan Assessment/Plan (1) Cellulitis of right thigh: PLAN: Plan #Right thigh cellulitis * IV vancomycin and Zosyn. * leucocytosis has resolved. * erythema has improved but area of fluctuance remains. * soft issue ultrasound showed hypoechoic subcutaneous collection in area of abscess measuring 15 x 8 x 4mm and multiple lymph nodes. * plastic surgery on board; for I&D today * #Hypokalemia: resolved. #Hypothyroidism: On Synthroid. TSH is low at less than 0.01 and free T4 is elevated. synthroid cut down to 75mcg daily #Type 2 diabetes mellitus: On insulin sliding scale. Accu-Cheks ACHS. #Nonalcoholic fatty liver disease: On ursodiol #LUIS: On CPAP nightly DVT prophylaxis: Lovenox Charges/Coding Visit Charges Inpatient E&M: 73983 Subs Hosp L2
--- NOTE | 2022-08-20 13:55 | ABS_PTH ---
PATIENT: SHAUNA RANDALL LOC: 3 U#:[id number] AGE/SX: 66/F [place] [facility] [place]: Dr. Sheryl Portillo MD : [id number] BED: 1 DIS: 08/22/2022 SPEC #: [id number] RECD: 08/20/22 15:42 STATUS: BAKARI VEGASTimo #: [id number] WESTLEY: 08/20/22 13:[address]: Leobardo Sylvester DEPT: SURGICAL PATHOLOGY RECD BY: Nicolasa Mohr ENTERED: 08/21/22 09:00 SP TYPE: Abscess OTHR DR: MD Dr. Diana Gibbons DO Dr. Nana Yaa Koram, MD Dr. Paige Pierce, MD Tissues: Thigh, NOS Procedures: Surgery Specimen Level IV Comments: @ Ordering doctor for SUIII edited from to @ by SOBEIDA at 08/21/22 1539 @ Submitting doctor edited from to @ by RGOOD at 08/21/22 1539 HEADER OPERATION: I & D thigh abscess PRE-OP DIAGNOSIS: Cellulitis of right thigh TISSUE SUBMITTED: Right thigh diabetic abscess MICROSCOPIC DIAGNOSIS Skin and tissue of right thigh abscess, excision: Consistent with cutaneous and subcutaneous abscess formation. AM:rancho 08/22/2022 MICROSCOPIC DESCRIPTION Slides are reviewed. GROSS DESCRIPTION Received in fixative is one container labeled with the patient's name and designated right thigh diabetic abscess. The specimen consists of a piece of skin with underlying tissue measuring 10.0 x 8.0 cm and up to 4.0 cm in thickness. Also present in the container is a triangular piece of skin with underlying tissue measuring 5.5 x 4.0 x 2.5 cm. Also present in the container are multiple detached fragments of adipose tissue measuring in aggregate 6.0 x 4.0 x 2.0 cm. Sections reveal focal grayish area in the deeper portion of the specimen consistent with abscess formation. Clinical Recruiter sections are submitted in three cassettes. / SJ:rancho 08/21/2022 TC:2 CPT: 06410
[2022-08-20] MEDS: Lidocaine 1% /Epi 1:100 (20ml) 20 ML Vial (15:29)
--- NOTE | 2022-08-20 15:33 | OP.PCM_ITS ---
Problems Associated Problem List Diagnoses (1) Abscess of right thigh: (2) Cellulitis of right thigh: (3) Diabetes mellitus, type II: (4) Open wound of right thigh: Report of Operation Date of Procedure: 08/20/22 Pre-Operative Diagnosis: 1. Diabetic abscess right medial thigh with cellulitis. 2. Diabetes. Post-Operative Diagnosis: 1. Diabetic abscess right medial thigh with cellulitis. 2. Diabetes. 3. Open surgical diabetic abscess wound right medial thigh. Surgery/Procedure Performed:: Surgical preparation right medial thigh with incision and drainage and excisional debridement diabetic abscess (150 cm2). Description of Surgical Findings:: 66-year-old female with a history of diabetes mellitus was admitted with a diabetic abscess right medial thigh due to increasing redness, and pain, and swelling. She also states she had fevers at home to 102. She initially came to the ED on 08/15/22. An ultrasound was done which showed no DVT. She was discharged home. She returned to the ED the next day with a fever. Her WBC was 15.4. She was given a dose of Unasyn and discharged on Keflex. She returned to the ED the next day with continued fever. WBC increased to 17. She was given another dose of Unasyn and admitted. Her antibiotics were later changed to Vancomycin and Zosyn. The redness has improved but is persistent in the right medial thigh. Ultrasound was done which showed hypoechoic subcutaneous collection in area of clinical concern measures 15 x 8 x 4 mm. Subcutaneous soft tissue edema. Multiple lymph nodes, largest measures up to 4.3 cm in long axis. Probable small subcutaneous fluid collection, seroma versus abscess in the area of clinical concern. I was asked to evaluate this patient for surgical options for treatment. Patient was informed of the risks and complications of the procedure including alternatives to surgery. These were discussed with the patient personally. Patient voices understanding and wishes to proceed. Potential risks and complications included but not inclusive of bleeding, infection, hematoma, bruising, swelling, loss of sensation to skin, wound breakdown, need for wound care, poor scarring, poor aesthetic outcome, intra operative cardiac or neurologic events, DVT, PE, and reaction to anesthesia. Size of wound right medial thigh - 10 x 15 x 3 cm. Surgeon: Leobardo Sylvester MD wildlife biostation research ecologist: Dante Coker RNFA Type of Anesthesia: General Anesthesiologist: Kev Badillo MD and Divya Carlos CRNA Specimen's removed: Diabetic abscess right medial thigh to Pathology and Microbiology. Drains: None. Estimated Blood Loss (mL): 150. Description of Procedure: Patient was taken to OR in supine position and was placed under general anesthesia. The right thigh area was prepped and draped in the usual fashion. SCD was placed for DVT prophylaxis. Perioperative antibiotics were given intravenously. Using xylocaine with epinephrine, the infected abscess was infiltrated. After waiting 5 minutes for the anesthetic to take effect, I proceeded with surgical preparation right medial thigh with a circular incision around the abscess down into the subcutaneous tissue. Some pus was seen. A lot of fat necrosis was present along with purulent exudate extending down to the thigh musculature. There was indurated tissue and fat necrosis adherent to the muscle which was excised and debrided. During this debridement, the saphenous vein was encountered at the base of the wound and was involved with the infection. A section of the vein was excised and each of the vein was suture tied with 3-0 Vicryl suture. Half the soft tissue was sent to Pathology for analysis to rule out carcinoma and to Microbiology for culture. A positive culture will necessitate antibiotic therapy. The wound was irrigated with saline. Hemostasis was obtained with electrocautery. The size of the wound defect right medial thigh after incision and drainage and excisional debridement was 10 x 15 x 3 cm or 150 cm2. The wound was dressed with Mepitel nonadherent dressing followed by Kerlix gauze and Betadine followed by dry Kerlix gauze and ABD pads for compression dressing and followed with a compression zuleyka wrap. Patient tolerated the procedure well and was sent to PACU in satisfactory condition. Patient will be sent upstairs for continued postop care. The VAC will be applied tomorrow. She will continue the IV Vancomycin and Zosyn. After discharge she will followup at the [facility]ound Center. If there is a plateau in the healing process, can proceed with delayed closure with skin grafting. Grafts/Implants Used: None. Procedure Start Time: 15:01 Procedure Stop Time: 15:29 Complications None. Admit VTE Documentation VTE Present on Admission: No VTE Mechan Device Prophylaxis: SCD's VTE Pharm Prophylaxis ordered?: Yes Addendum Addendum: Surgery Charges CPT - 95659 ICD-10 - L02.415, L03.115, S71.101A, E11.9 S71.101A, L02.415, L03.115, E11.9 S71.101A, L02.415, L03.115, E11.9
[2022-08-20 16:06] LABS: Bedside Glucose 77 mg/dL (74-106)
--- NOTE | 2022-08-20 16:22 | SUR.PHASEI ---
delay in getting pt back to [facility] due to unable to give report at this time. will try again in a few mins to call [employer].
[2022-08-20] MEDS: Morphine 2 MG/ML Syringe IV (17:04)
[2022-08-20] MEDS: Acetaminophen 325 MG Tablet 650 MG PO (17:04)
[2022-08-20] MEDS: Ursodiol 250 MG Tablet PO (20:35)
[2022-08-20] MEDS: FLUoxetine 20 MG Capsule 40 MG PO (20:35)
[2022-08-20 20:55] LABS: Bedside Glucose 73 mg/dL (74-106)
[2022-08-20 21:05] LABS: Bedside Glucose 101 mg/dL (74-106)
[2022-08-21] MEDS: Morphine 2 MG/ML Syringe IV (02:40)
[2022-08-21 04:30] VITALS: BP 137/84; PULSE 76; RESP 18; TEMP 36.5; O2SAT 96
[2022-08-21 04:37] LABS: Absolute Lymphocyte Count 1.81 X10^3/uL (0.83-4.51); Absolute Neutrophil Count 4.2 X10^3/uL (2.0-7.7); Basophil# 0.04 X10^3/uL; Basophil% 0.5 % (0-1); Eosinophil# 0.53 X10^3/uL; Eosinophils% 7.2 % (0-5); Hematocrit 31.5 % (37-47); Hemoglobin 10.3 g/dL (12.0-15.0); Lymphocyte # 1.81 X10^3/ul (0.83-4.51); Lymphocyte % 24.7 % (19-41); Mean Corp Hgb Conc 32.7 g/dL (32-36); Mean Corpuscular Hgb 29.2 pg (27.0-32.0); Mean Corpuscular Volume 89.2 fL (81-99); Mean Platelet Vol. 9.1 fl (6.2-12.0); Monocyte# 0.57 X10^3/uL; Monocyte% 7.8 % (0-10); NRBC Flagged by Analyzer 0 % (0-5); Neutrophil # 4.23 X10^3/uL (2.7-7.7); Neutrophil % 57.9 % (47-70); Platelet Count 219 K/mm3 (150-450); RBC Distribution Width CV 14.1 % (11.6-14.6); RBC Distribution Width SD 45.5 fl (35.1-43.9); Red Blood Count 3.53 M/mm3 (4.2-5.4); White Blood Count 7.3 K/mm3 (4.4-11.0)
--- NOTE | 2022-08-21 05:20 | PCM.RX.CS ---
Consult Pharmacy has been consulted to manage selected antiobiotic: Vancomycin Type of Consult: Follow-up Labs: Vancomycin Trough 18.0 ug/mL (5.0-15.0) H 08/21/22 04:31 Goal Trough: 15-20 mcg/mL Pharmacy Plan for Drug Dosing: Pharmacy Service will continue to monitor and adjust dosing as required. TROUGH 18 @ 11.5 HRS. NO CHANGES FOLLOW UP TROUGH IN 2 DAYS Follow-Up Labs: Trough Vancomycin Labs to be done on [date and time ordered]: 08/23 @ 2413
[2022-08-21] MEDS: Levothyroxine 75 MCG Tablet PO (06:41)
[2022-08-21 07:10] LABS: Bedside Glucose 70 mg/dL (74-106)
[2022-08-21 08:15] VITALS: BP 141/81; PULSE 83; RESP 18; TEMP 36.8; O2SAT 98
[2022-08-21] MEDS: HYDROmorphone 1 MG/ML Syringe IV (08:27)
[2022-08-21] MEDS: 0.9% Saline Lock 10 ML Syringe IV ×2 (08:27→17:56)
--- NOTE | 2022-08-21 09:11 | WOUNDNOTE ---
wound photo: right medial thigh
[2022-08-21] MEDS: Enoxaparin 40 MG/0.4 ML Syringe SC (09:39)
[2022-08-21] MEDS: Ursodiol 250 MG Tablet PO ×2 (09:39→20:23)
--- NOTE | 2022-08-21 10:14 | CASEMGMT ---
Addendum entered by Toya Arias 08/21/22 11:06: Received tc back from Tammy at [facility], they are able to accept pt for SOC on Thursday, pt aware. Original Note: RN CM into pt room, pt is aware that she will need HHC for wound vac changes. Patient was provided a list of HHC providers including quality and resource use data and consistent with the patient?s preferred geographic region, medical needs, and insurance network were provided from the [employer] Guide. Pt chose [facility] as she states she has had them in the past. TC to Tammy at [facility], referral made. Will await acceptance.
--- NOTE | 2022-08-21 10:57 | PN_ITS ---
Subjective Subjective Patient seen and examined. was by bedside. She had no complaints. She feels well. She had I&D of the right upper thigh abscess yesterday and had wound VAC placed. She has remained hemodynamically stable. Objective Data Objective Data Vital Signs: Vital Signs Temp Pulse Resp BP Pulse Ox O2 Del Method 98.2 F 83 18 141/81 H 98 Room Air 08/21/22 08:15 08/21/22 08:15 08/21/22 08:15 08/21/22 08:15 08/21/22 08:15 08/21/22 08:15 Oxygen Delivery Method Room Air Weight: 189 lb 4.622 oz Body Mass Index (BMI) 32.5 Intake & Output: Intake and Output for Last 24 Hours 08/19/22 08/20/22 08/21/22 23:59 23:59 23:59 Intake Total 940 / 940 2641.88 / 2641.88 375 / 375 Output Total 400 / 400 1600 / 1600 Balance 540 / 540 1041.88 / 1041.88 375 / 375 Lab / Micro Data Result Diagrams: 08/21/22 04:31 08/20/22 06:00 Labs: Laboratory Results - last 24 hr 08/20/22 11:30: POC Glucose 82 08/20/22 15:41: POC Glucose 77 08/20/22 16:44: POC Glucose 73 L 08/20/22 20:44: POC Glucose 101 08/21/22 04:31: WBC 7.3, RBC 3.53 L, Hgb 10.3 L, Hct 31.5 L, MCV 89.2, MCH 29.2, MCHC 32.7, RDW Std Deviation 45.5 H, RDW Coeff of Krista 14.1, Plt Count 219, MPV 9.1, Immature Gran % (Auto) 1.900 H, Neut % (Auto) 57.9, Lymph % (Auto) 24.7, [place] % (Auto) 7.8, Eos % (Auto) 7.2 H, Baso % (Auto) 0.5, Absolute Neuts (auto) 4.2, Absolute Lymphs (auto) 1.81, Nucleated RBC % 0 08/21/22 04:31: Vancomycin Trough 18.0 H 08/21/22 06:40: POC Glucose 70 L Physical Exam Const alert, oriented x3 and no apparent distress Constitutional Narrative: obese General Appearance: cooperative and well developed HEENT normocephalic, head/scalp atraumatic, moist oral mucous membranes and oropharynx normal Eyes PERRL and EOMs intact bilaterally Neck no lymphadenopathy, supple and no JVD General: trachea midline Lymph Lymphatic: no lymphadenopathy noted Resp normal respiratory effort, normal air movement and clear to auscultation bilaterally Cardio regular rate, regular rhythm, S1 normal heart sound, S2 normal heart sound and no murmurs GI normal to inspection, nondistended, normoactive bowel sounds, soft to palpation, non-tender and non-distended Extremity normal capillary refill, no clubbing, cyanosis or edema and no calf tenderness Skin Skin Narrative: s/p I&D wih wound vac in situ Neuro CN's II-XII intact bilaterally, no focal motor deficits, no sensory deficits noted and deep tendon reflexes 2+ bilaterally Motor Exam: strength 5/5 throughout and general weakness Psych thought process normal, cooperative and affect normal Appearance: appropriate Assessment & Plan Assessment/Plan (1) Cellulitis of right thigh: PLAN: Plan #Right thigh cellulitis * IV vancomycin and Zosyn. * leucocytosis has resolved. * s/p I&D by plastic surgery, with application of wound vac. * wound nurse on board. * #Hypokalemia: resolved. #Hypothyroidism: On Synthroid. synthroid cut down to 75mcg daily due to low TSH and elevated free T4 #Type 2 diabetes mellitus: On insulin sliding scale. Accu-Cheks ACHS. #Nonalcoholic fatty liver disease: On ursodiol #LUIS: On CPAP nightly DVT prophylaxis: Lovenox Disposition: for dc home tomorrow. WIll need home care set up to help with wound vac. Total time spent on evaluation and management of patient, reviewing chart and specialist notes, discussing plan with patient and her , discussion with nursing and ancillary staff as well as documentation: 43 mins Charges/Coding Visit Charges Inpatient E&M: 09304 Subs Hosp L2
[2022-08-21 12:01] LABS: Bedside Glucose 79 mg/dL (74-106)
[2022-08-21 12:13] LABS: ALB/GLOB Ratio 0.6 RATIO (0.9-2.4); AST(SGOT) 28 U/L (15-37); Alanine Aminotransfer ALT/SGPT 16 U/L (13-56); Alkaline Phosphatase 191 U/L (45-117); Anion Gap 1 (5-15); BUN 5 mg/dL (7-18); BUN/Creat Ratio 7.1 RATIO (10-20); Calcium,Total 8.3 mg/dL (8.5-10.1); Chloride 110 mmol/L (98-107); EST Glomerular Filtration Rate 89 mL/min (>60); Est Glom Filt Rate - Afr Amer 108 mL/min (>60); Estimated Creatinine Clearance 70.11 ml/min; Globulin 3.4 g/dL (2.2-4.2); Glucose 74 mg/dL (74-106); Potassium 4.1 mmol/L (3.5-5.1); Prealbumin 6.4 mg/dL (20.0-40.0); Protein, Total 5.4 g/dL (6.4-8.2); Sodium Level 141 mmol/L (136-145)
[2022-08-21 13:51] VITALS: BP 131/71; PULSE 80; RESP 16; TEMP 36.7; O2SAT 96
--- NOTE | 2022-08-21 16:05 | PN.SURG_ITS ---
Subjective Subjective Postop #1 Patient states that her pain is well controlled. Objective Data Objective Data Vital Signs: Vital Signs Temp Pulse Resp BP Pulse Ox O2 Del Method 98.1 F 80 16 131/71 H 96 Room Air 08/21/22 13:51 08/21/22 13:51 08/21/22 13:51 08/21/22 13:51 08/21/22 13:51 08/21/22 13:51 Oxygen Delivery Method Room Air Weight: 189 lb 4.622 oz Body Mass Index (BMI) 32.5 Intake & Output: Intake and Output for Last 24 Hours 08/19/22 08/20/22 08/21/22 23:59 23:59 23:59 Intake Total 940 / 940 2641.88 / 2641.88 419.75 / 419.75 Output Total 400 / 400 1600 / 1600 425 / 425 Balance 540 / 540 1041.88 / 1041.88 -5.25 / -5.25 Lab / Micro Data Result Diagrams: 08/21/22 04:31 08/21/22 04:31 Labs: Laboratory Results - last 24 hr 08/20/22 15:41: POC Glucose 77 08/20/22 16:44: POC Glucose 73 L 08/20/22 20:44: POC Glucose 101 08/21/22 04:31: WBC 7.3, RBC 3.53 L, Hgb 10.3 L, Hct 31.5 L, MCV 89.2, MCH 29.2, MCHC 32.7, RDW Std Deviation 45.5 H, RDW Coeff of Krista 14.1, Plt Count 219, MPV 9.1, Immature Gran % (Auto) 1.900 H, Neut % (Auto) 57.9, Lymph % (Auto) 24.7, [place] % (Auto) 7.8, Eos % (Auto) 7.2 H, Baso % (Auto) 0.5, Absolute Neuts (auto) 4.2, Absolute Lymphs (auto) 1.81, Nucleated RBC % 0 08/21/22 04:31: Sodium 141, Potassium 4.1, Chloride 110 H, Carbon Dioxide 30.0, Anion Gap 1 L, BUN 5 L, Creatinine 0.70, Estim Creat Clear Calc 70.11, Est GFR (MDRD) Af Amer 108, Est GFR (MDRD) Non-Af 89, BUN/Creatinine Ratio 7.1 L, Glucose 74, Calcium 8.3 L, Total Bilirubin 0.80, AST 28, ALT 16, Alkaline Phosphatase 191 H, Total Protein 5.4 L, Albumin 2.0 L, Globulin 3.4, Albumin/Globulin Ratio 0.6 L, Prealbumin 6.4 L 08/21/22 04:31: Vancomycin Trough 18.0 H 08/21/22 06:40: POC Glucose 70 L 08/21/22 11:40: POC Glucose 79 Micro: Microbiology 08/17/22 13:25 Blood Culture (Wb) - Left Hand Blood Culture - Preliminary No growth in 48 hours. 08/17/22 13:15 Blood Culture (Wb) - Anticubital Left Blood Culture - Preliminary No growth in 48 hours. 08/20/22 15:03 Tissue - Leg, Right Gram Stain - Final Physical Exam Const alert and oriented x3 General Appearance: cooperative HEENT normocephalic Eyes General Eye: normal appearance of both eyes Resp normal respiratory effort Effort and Inspection: able to speak in complete sentences Cardio regular rate Extremity full ROM and normal capillary refill Skin Wound Narrative: Right anterior thigh wound with wound VAC dressing in place. Neuro oriented x3 Psych mental status grossly normal Assessment & Plan Assessment/Plan (1) Open wound of right thigh: (2) Cellulitis of right thigh: (3) Abscess of right thigh: (4) Soft tissue infection: (5) Diabetes mellitus, type II: QUALIFIERS: Diabetes mellitus long-term insulin use: without buttermaker use Diabetes mellitus complication status: with other specified complication Qualified Code(s): E11.69 - Type 2 diabetes mellitus with other specified complication PLAN: Plan Patient states that she has good pain control. Operative dressing removed today. She has no active bleeding. She tolerated the wound VAC at 150 mmHg dressing being placed. Operative cultures are pending. She is currently on Zosyn and Vancomycin IV. Prealbumin is 6.8. Encouraged increase protein intake to help with wound healing. She will need supplemental protein intake. She will be discharged with home health to help with the wound VAC dressing changes 3 times per week. [facility] Thursday08/27/22.
[2022-08-21 16:46] LABS: Bedside Glucose 70 mg/dL (74-106)
[2022-08-21] MEDS: Acetaminophen 325 MG Tablet 650 MG PO (16:59)
[2022-08-21] MEDS: Juven (unflavored) Packet 1 PACKET PO (17:00)
[2022-08-21] MEDS: Ondansetron 4 MG/2 ML Vial IV (17:56)
[2022-08-21] MEDS: Ibuprofen 600 MG Tablet PO (20:22)
[2022-08-21] MEDS: FLUoxetine 20 MG Capsule 40 MG PO (20:23)
[2022-08-21 20:30] VITALS: BP 147/79; PULSE 78; RESP 16; TEMP 36.4; O2SAT 100
[2022-08-22 00:25] LABS: Bedside Glucose 94 mg/dL (74-106)
[2022-08-22 05:00] VITALS: BP 126/78; PULSE 64; RESP 16; TEMP 36.4; O2SAT 100
[2022-08-22] MEDS: Levothyroxine 75 MCG Tablet PO (05:49)
[2022-08-22 06:16] LABS: Bedside Glucose 73 mg/dL (74-106)
[2022-08-22 06:39] LABS: Absolute Neutrophil Count 5.2 X10^3/uL (2.0-7.7); Basophil# 0.07 X10^3/uL; Basophil% 0.8 % (0-1); Eosinophil# 0.52 X10^3/uL; Eosinophils% 5.8 % (0-5); Hematocrit 32.2 % (37-47); Hemoglobin 10.5 g/dL (12.0-15.0); Lymphocyte % 24.4 % (19-41); Mean Corp Hgb Conc 32.6 g/dL (32-36); Mean Corpuscular Hgb 29.4 pg (27.0-32.0); Mean Corpuscular Volume 90.2 fL (81-99); Mean Platelet Vol. 9.5 fl (6.2-12.0); Monocyte# 0.75 X10^3/uL; Monocyte% 8.3 % (0-10); NRBC Flagged by Analyzer 0 % (0-5); Neutrophil % 57.7 % (47-70); Platelet Count 272 K/mm3 (150-450); RBC Distribution Width CV 13.8 % (11.6-14.6); RBC Distribution Width SD 45.2 fl (35.1-43.9); Red Blood Count 3.57 M/mm3 (4.2-5.4)
[2022-08-22 07:06] LABS: Anion Gap 1 (5-15); BUN 5 mg/dL (7-18); BUN/Creat Ratio 6.1 RATIO (10-20); Calcium,Total 8.3 mg/dL (8.5-10.1); Chloride 109 mmol/L (98-107); Creatinine, Serum 0.82 mg/dL (0.55-1.02); EST Glomerular Filtration Rate 74 mL/min (>60); Est Glom Filt Rate - Afr Amer 90 mL/min (>60); Estimated Creatinine Clearance 59.85 ml/min; Glucose 80 mg/dL (74-106); Potassium 3.9 mmol/L (3.5-5.1); Sodium Level 140 mmol/L (136-145)
[2022-08-22 07:53] VITALS: BP 136/86; PULSE 74; RESP 18; TEMP 36.3; O2SAT 98
[2022-08-22] MEDS: Enoxaparin 40 MG/0.4 ML Syringe SC (07:57)
[2022-08-22] MEDS: Ursodiol 250 MG Tablet PO (07:57)
[2022-08-22 08:00] VITALS: O2SAT 95
[2022-08-22] MEDS: Juven (unflavored) Packet 1 PACKET PO (08:00)
--- NOTE | 2022-08-22 08:41 | WOUNDNOTE ---
Still awaiting home VAC approval.
--- NOTE | 2022-08-22 09:45 | CASEMGMT ---
Addendum entered by Toya Arias 08/22/22 15:08: Updated [facility] Tammy that pt vac will be delivered tonight for application at tomorrow's visit. Original Note: ASH CM into pt room, pt is aware that [facility] will see her tomorrow. Pt denies any further homegoing needs. Tammy updated at [facility] that pt will dc today.
--- NOTE | 2022-08-22 13:04 | DCINST_ITS ---
Discharge Instructions Diet Discharge Diet: Low fat / Low cholesterol Activity Discharge Activity: Return to Normal Activity Weight Bearing Status: Weight bearing as tolerated Dressing / Incision Call your doctor if you observe: Fever of 101 or Higher, Dizziness, Swelling in the ankles, Chest pain and Uncontrolled pain Follow Up Care Test Results: Test results from this visit will be discussed in further detail at your follow- up appointment, if applicable. Discharge Plan Admission Admit Date/Time: 08/17/22 18:53 Primary Reason for Your Visit: cellulitis of the thigh Attending Provider: Sheryl Portillo Primary Care Provider: Diana Martinez Consulting Providers: Monie Ruiz ; Leobardo Sylvester Instructions Patient Instructions: Cellulitis, Cellulitis Ch Dc Discharge Orders/Prescriptions Prescriptions: New doxycycline hyclate 100 mg capsule 100 mg PO BID Qty: 20 0RF Continued Rybelsus 14 mg tablet 14 mg PO DAILY fluoxetine 20 MG capsule 40 mg PO QHS vitamin E 670 mg (1,000 unit) Capsule 670 mg PO DAILY metformin 1,000 mg tablet 1,000 mg PO BID levothyroxine 200 mcg tablet 200 mcg PO DAILY cholecalciferol (vitamin D3) [Vitamin D3] 125 mcg (5,000 unit) Tablet 125 mcg PO DAILY calcium 600 mg Capsule 1,200 mg PO DAILY ursodiol 250 mg tablet 250 mg PO BID Qty: 180 3RF Discontinued cephalexin [cephalexin] 500 mg capsule 500 mg PO Q6 Qty: 28 0RF Referrals / Follow Up: Leobardo Sylvester MD [Med Staff - Active Staff] - Within 2 Weeks Diana Martinez DO [Primary Care Provider] - Within 2 Weeks Disposition Disposition (needs filled in before D/C Order can be placed): Home Health Service
--- NOTE | 2022-08-22 13:05 | DS.PCM_ITS ---
Providers Date of Admission: 08/17/22 Date of Discharge: 08/22/22 Primary Care Physician: Dr. Diana Martinez, Consultations 08/19/22 09:04 Consult: Plastic Surgery Routine Consulting Provider: Leobardo Sylvester Reason for Consult: possible abcess EMERGENT Consult: No MD Notified: Yes Date Notified: 08/19/22 Time Notified: 09:04 Method of Notification: Text Comments:: Dr. Portillo to text 08/21/22 06:25 Consult: Onc/Wound/dairy laboratory technician Routine Comment: Reason for Consult:: vac right medial thigh Reason For Visit: CELLULITIS RIGHT THIGH Diagnosis Discharge Diagnosis (1) Abscess of right thigh: Status: Acute Code(s): L02.415 - Cutaneous abscess of right lower limb (2) Cellulitis of right thigh: Status: Acute Code(s): L03.115 - Cellulitis of right lower limb (3) Diabetes mellitus, type II: Status: Chronic Code(s): E11.9 - Type 2 diabetes mellitus without complications Qualifiers: Diabetes mellitus complication status: with other specified complication Diabetes mellitus jail insulin use: without jail use Qualified Code(s): E11.69 - Type 2 diabetes mellitus with other specified complication (4) Open wound of right thigh: Status: Acute Code(s): S71.101A - Unspecified open wound, right thigh, initial encounter Plan #Right thigh cellulitis * IV vancomycin and Zosyn. * leucocytosis has resolved. * s/p I&D by plastic surgery, with application of wound vac. * wound nurse on board. * #Hypokalemia: resolved. #Hypothyroidism: On Synthroid. synthroid cut down to 75mcg daily due to low TSH and elevated free T4 #Type 2 diabetes mellitus: On insulin sliding scale. Accu-Cheks ACHS. #Nonalcoholic fatty liver disease: On ursodiol #LUIS: On CPAP nightly DVT prophylaxis: Lovenox Disposition: for sc home tomorrow. WIll need home care set up to help with wound vac. Total time spent on evaluation and management of patient, reviewing chart and specialist notes, discussing plan with patient and her , discussion with nursing and ancillary staff as well as documentation: 43 mins Medications at Discharge Home Medications fluoxetine 20 mg capsule 40 mg PO QHS antidepressant 06/05/14 semaglutide 14 mg tablet (Rybelsus) 14 mg PO DAILY 12/27/22 ursodiol 250 mg tablet 250 mg PO BID #180 tabs 07/22/22 calcium 600 mg capsule 1,200 mg PO DAILY Check with primary doctor 08/17/22 cholecalciferol (vitamin D3) 125 mcg (5,000 unit) tablet (Vitamin D3) 125 mcg PO DAILY SUPPLEMENT 08/17/22 levothyroxine 200 mcg tablet 200 mcg PO DAILY THYROID 08/17/22 metformin 1,000 mg tablet 1,000 mg PO BID DM 08/17/22 vitamin E 670 mg (1,000 unit) capsule 670 mg PO DAILY SUPPLEMENT 08/17/22 diazepam 5 mg tablet (Valium) 5 mg PO BID PRN muscle spasm 7 days #14 tabs 08/22/22 doxycycline hyclate 100 mg capsule 100 mg PO BID #20 caps 08/22/22 hydrocodone-acetaminophen 5-325mg 5mg-325mg 1 tab PO TID PRN pain (scale score 7-10) 7 days #20 tabs 08/22/22 Hospital Course Operations - (incision and drainage of left upper thigh abscess) Procedures None Summary of Care Provided Minutes Spent on Discharge: 52 Hospital Course: Patient is a 66-year-old female with a past medical history as outlined was admitted through the ED on 08/17/2022 with a complaint of worsening right thigh cellulitis. She has started having right upper thigh pain a few days prior to admission and came to the ED the day after. She had a negative duplex for DVT. Swelling worsened and became erythematous. She came back to the ED and was given a dose of Unasyn and discharged home on oral Keflex. However his symptoms persisted and the swelling worsened with associated fever and chills so she came into the ED. White cell count was elevated at 17. She denied any trauma or insect bites or any rash to that area. She was admitted and managed for cellulitis of the left upper thigh. She was started on IV vancomycin and Zosyn. Azithromycin was initially added on due to concern about lymphadenitis but this was subsequently discontinued. Her white cell count trended downwards. She did have a soft tissue ultrasound which showed a hypoechoic subcutaneous collection measuring about 15 x 8 x 4 mm concerning for abscess. Plastic surgery was consulted and she did have I&D done on 08/20/2022. She had a wound VAC applied afterwards. The wound cultures grew Staphylococcus. Symptoms improved and she felt much better. She was discharged home on a 10-day course of p.o. doxycycline on 08/22/2022. She is follow-up with her primary care doctor and follow-up with plastic surgery in the wound center. Patient seen and examined prior to discharge. She had no complaints and had an uneventful night. Review of systems otherwise negative. Labs and vitals reviewed. Home medication reviewed and reconciled. Physical Exam Const alert, oriented x3 and no apparent distress Constitutional Narrative: obese General Appearance: cooperative and well developed HEENT normocephalic, head/scalp atraumatic, moist oral mucous membranes and oropharynx normal Eyes PERRL and EOMs intact bilaterally Neck no lymphadenopathy, supple and no JVD General: trachea midline Lymph Lymphatic: no lymphadenopathy noted Resp normal respiratory effort, normal air movement and clear to auscultation bilaterally Cardio regular rate, regular rhythm, S1 normal heart sound, S2 normal heart sound and no murmurs GI normal to inspection, nondistended, normoactive bowel sounds, soft to palpation, non-tender and non-distended Extremity normal capillary refill, no clubbing, cyanosis or edema and no calf tenderness Skin Skin Narrative: s/p I&D wih wound vac in situ over right upper inner thigh. Neuro CN's II-XII intact bilaterally, no focal motor deficits, no sensory deficits noted and deep tendon reflexes 2+ bilaterally Motor Exam: strength 5/5 throughout and general weakness Psych thought process normal, cooperative and affect normal Appearance: appropriate Weight / BMI Weight Weight: 189 lb 4.622 oz Body Mass Index (BMI) 32.5 ABG / Lab / Microbiology Data Result Diagrams: 08/22/22 05:35 08/22/22 05:35 Laboratory: Laboratory Results - last 24 hr 08/21/22 16:21: POC Glucose 70 L 08/21/22 20:19: POC Glucose 94 08/22/22 05:35: WBC 9.0, RBC 3.57 L, Hgb 10.5 L, Hct 32.2 L, MCV 90.2, MCH 29.4, MCHC 32.6, RDW Std Deviation 45.2 H, RDW Coeff of Krista 13.8, Plt Count 272, MPV 9.5, Immature Gran % (Auto) 3.000 H, Neut % (Auto) 57.7, Lymph % (Auto) 24.4, [place] % (Auto) 8.3, Eos % (Auto) 5.8 H, Baso % (Auto) 0.8, Absolute Neuts (auto) 5.2, Absolute Lymphs (auto) 2.20, Nucleated RBC % 0 08/22/22 05:35: Sodium 140, Potassium 3.9, Chloride 109 H, Carbon Dioxide 30.0, Anion Gap 1 L, BUN 5 L, Creatinine 0.82, Estim Creat Clear Calc 59.85, Est GFR (MDRD) Af Amer 90, Est GFR (MDRD) Non-Af 74, BUN/Creatinine Ratio 6.1 L, Glucose 80, Calcium 8.3 L 08/22/22 05:45: POC Glucose 73 L Microbiology: Microbiology 08/20/22 15:03 Tissue - Leg, Right Gram Stain - Final 08/20/22 15:03 Tissue - Leg, Right Wound Culture - Preliminary Staphylococcus aureus 08/17/22 13:25 Blood Culture (Wb) - Left Hand Blood Culture - Preliminary No growth in 48 hours. 08/17/22 13:15 Blood Culture (Wb) - Anticubital Left Blood Culture - Preliminary No growth in 48 hours. D/C Instructions Discharge Diet: Low fat / Low cholesterol Discharge Activity: Return to Normal Activity Weight Bearing Status: Weight bearing as tolerated Call your doctor if you observe: Fever of 101 or Higher, Dizziness, Swelling in the ankles, Chest pain and Uncontrolled pain Meaningful Use Info Meaningful Use Diagnoses (Choose all that apply): None applicable Discharge Plan Admission Admit Date/Time: 08/17/22 18:53 Primary Reason for Your Visit: cellulitis of the thigh Attending Provider: Sheryl Portillo Primary Care Provider: Diana Martinez Consulting Providers: Monie Ruiz ; Leobardo Sylvester Instructions Patient Instructions: Cellulitis, Cellulitis Ch Dc Discharge Orders/Prescriptions Prescriptions: New doxycycline hyclate 100 mg capsule 100 mg PO BID Qty: 20 0RF diazepam [Valium] 5 mg tablet 5 mg PO BID PRN (Reason: muscle spasm) 7 Days Qty: 14 0RF hydrocodone-acetaminophen 5-325 mg tablet 1 tab PO TID PRN (Reason: pain (scale score 7-10)) 7 Days Qty: 20 0RF Continued Rybelsus 14 mg tablet 14 mg PO DAILY fluoxetine 20 MG capsule 40 mg PO QHS vitamin E 670 mg (1,000 unit) Capsule 670 mg PO DAILY metformin 1,000 mg tablet 1,000 mg PO BID levothyroxine 200 mcg tablet 200 mcg PO DAILY cholecalciferol (vitamin D3) [Vitamin D3] 125 mcg (5,000 unit) Tablet 125 mcg PO DAILY calcium 600 mg Capsule 1,200 mg PO DAILY ursodiol 250 mg tablet 250 mg PO BID Qty: 180 3RF Discontinued cephalexin [cephalexin] 500 mg capsule 500 mg PO Q6 Qty: 28 0RF Referrals / Follow Up: Leobardo Sylvester MD [Med Staff - Active Staff] - 08/27/22 9:00 am (wound center appointment ) Diana Martinez DO [Primary Care Provider] - Within 2 Weeks Disposition Disposition (needs filled in before D/C Order can be placed): Home Health Service Charges/Coding Visit Charges Inpatient E&M: 75725 Disch Hosp >30min
--- NOTE | 2022-08-22 13:35 | PCM.DC ---
Discharge Instructions Diet Discharge Diet: Low fat / Low cholesterol and - (encouraged increase protein intake for wound healing) Activity Weight Bearing Status: Weight bearing as tolerated Lifting Restrictions: 20 Lb weight lifting Dressing / Incision Call your doctor if you observe: Fever of 101 or Higher, Dizziness, Swelling in the ankles, Chest pain, Calf discomfort and Uncontrolled pain Additional Dressing/Incision Instructions:: Wound VAC dressing at 150 mmHg to be changed 3 times per week. At the time of the dressing wash the wound and darion wound with soap and water, pat dry then apply wound VAC. Follow Up Care Please Follow Up With: Rianna Trejo NP, [facility] When: [facility] If you need to change your appointment call [phone]. Any concerns before then call [facility] at [phone] Test Results: Test results from this visit will be discussed in further detail at your follow-up appointment, if applicable. Discharge Plan Admission Admit Date/Time: 08/17/22 18:53 Primary Reason for Your Visit: cellulitis of the thigh Attending Provider: Sheryl Portillo Primary Care Provider: Diana Martinez Consulting Providers: Monie Ruiz ; Leobardo Sylvester Instructions Patient Instructions: Cellulitis, Cellulitis [facility] Discharge Orders/Prescriptions Prescriptions: New doxycycline hyclate 100 mg capsule 100 mg PO BID Qty: 20 0RF Continued Rybelsus 14 mg tablet 14 mg PO DAILY fluoxetine 20 MG capsule 40 mg PO QHS vitamin E 670 mg (1,000 unit) Capsule 670 mg PO DAILY metformin 1,000 mg tablet 1,000 mg PO BID levothyroxine 200 mcg tablet 200 mcg PO DAILY cholecalciferol (vitamin D3) [Vitamin D3] 125 mcg (5,000 unit) Tablet 125 mcg PO DAILY calcium 600 mg Capsule 1,200 mg PO DAILY ursodiol 250 mg tablet 250 mg PO BID Qty: 180 3RF Discontinued cephalexin [cephalexin] 500 mg capsule 500 mg PO Q6 Qty: 28 0RF Referrals / Follow Up: Leobardo Sylvester MD [Med Staff - Active Staff] - 08/27/22 9:00 am (wound center appointment ) Diana Martinez DO [Primary Care Provider] - Within 2 Weeks Disposition Disposition (needs filled in before D/C Order can be placed): Home Health Service
[2022-08-22 14:09] VITALS: BP 138/83; PULSE 76; RESP 18; TEMP 36.5; O2SAT 97
[2022-08-22] MEDS: Ondansetron 4 MG/2 ML Vial IV (14:12)
[2022-08-22] MEDS: 0.9% Saline Lock 10 ML Syringe IV (14:13)
--- NOTE | 2022-08-22 15:28 | WOUNDNOTE ---
Pt had stated she wanted po pain med prior to wound vac dressing removal. this nurse had removed OxyIR from the accudose. pt states she is allergic. two 5mg tabs were returned to the accudose. pt denies wanting any other pain med. tolerated the dressing change very well. a NS wet to dry dressing was applied and the VAC will be applied at home tomorrow per home health care. with patient's insurance, the ready care VAC's cannot be used and patient will need to have the VAC delivered to the house. VAC to be delivered tonight and then will be applied by [facility] tomorrow.
== END 2022-08-22 17:30 | disposition home health service (06) | DRG 623 ==
LOC: ED 11:26 → MS3 12:22
PROVIDERS: Anesthesiology; Family Medicine; Physician Assistant; Surgery; Admitting Provider Internal Medicine; Emergency Provider Emergency Medicine; PCP Internal Medicine; Visit Provider Student in an Organized Health Care Education/Training Program
PROC: 0JBL0ZZ Excision of Right Upper Leg Subcutaneous Tissue and Fascia, Open Approach (ICD-10-PCS; principal; 2022-08-20 13:45)
DX: E11.628 Type 2 diabetes mellitus with other skin complications (principal); L03.115 Cellulitis of right lower limb; L02.415 Cutaneous abscess of right lower limb; E11.65 Type 2 diabetes mellitus with hyperglycemia; E03.9 Hypothyroidism, unspecified; B95.61 Methicillin susceptible Staphylococcus aureus infection as the cause of diseases classified elsewhere; E66.9 Obesity, unspecified; K76.0 Fatty (change of) liver, not elsewhere classified; G47.33 Obstructive sleep apnea (adult) (pediatric); E87.6 Hypokalemia; I10 Essential (primary) hypertension; E78.00 Pure hypercholesterolemia, unspecified; L04.3 Acute lymphadenitis of lower limb; Z68.31 Body mass index [BMI] 31.0-31.9, adult; Z79.84 Long term (current) use of oral hypoglycemic drugs; Z79.899 Other long term (current) drug therapy; Z86.16 Personal history of COVID-19
CPT/HCPCS: 36415; 76882; 80048; 80053; 80076; 80202; 82962; 83036; 83605; 84134; 84145; 84439; 84443; 85025; 85652; 86140; 87040; 87070; 87075; 87077; 87102; 87186; 87205; 87206; 88304; 88305; 93005; 93971; 96365; 96375; 97802; 99282; 99283; 99284; J7030; J7040; J7050; A4216; J0295; J2405

== ENCOUNTER 2022-08-27 08:42 | Outpatient (RCR) | payer MEDICARE, SELFPAY ==
[2022-08-27 08:55] VITALS: BP 132/77; PULSE 90; RESP 20; TEMP 36.1
--- NOTE | 2022-08-27 09:44 | PCM.WC.HP ---
History of Present Illness Date of Service: 08/27/22 Chief Complaint: Right medial thigh wound History of Wound: 66-year-old female with a history of diabetes mellitus was admitted with a diabetic abscess right medial thigh due to increasing redness, and pain, and swelling. She initially came to the ED on 08/15/22. An ultrasound was done which showed no DVT. She was discharged home. She returned to the ED the next day with a fever. Her WBC was 15.4. She was given a dose of Unasyn and discharged on Keflex. She returned to the ED the next day with continued fever. WBC increased to 17. She was given another dose of Unasyn and admitted. Her antibiotics were later changed to Vancomycin and Zosyn. The redness has improved but is persistent in the right medial thigh. Ultrasound was done which showed hypoechoic subcutaneous collection in area of clinical concern measures 15 x 8 x 4 mm. Subcutaneous soft tissue edema. Multiple lymph nodes, largest measures up to 4.3 cm in long axis. Probable small subcutaneous fluid collection, seroma versus abscess in the area of clinical concern. Surgery 08/20/22 - Surgical preparation right medial thigh with incision and drainage and excisional debridement diabetic abscess (150 cm2). Operative cultures positive for Staphylococcus aureus and she was treated with Doxycycline. Wound care - Wound VAC at 150 mmHg to be changed 3 times per week. Progress of Wound: Right medial thigh ulcer beefy pink, with no active bleeding. No erythema on the shayla wound. [facility] Medical History (Updated 08/31/22 @ 20:46 by Rianna Trejo NP, [facility]) Abnormal EKG Abscess of right thigh Anemia Asthma BPV (benign positional vertigo) Cellulitis of right thigh Depression Diabetes mellitus, type II DVT (deep vein thrombosis) in Edema Elevated liver enzymes Fatty liver GERD (gastroesophageal reflux disease) Hormone imbalance Hot flashes HTN (hypertension) Hypocalcemia Hypothyroidism Hypoxia NAFLD (nonalcoholic fatty liver disease) Obstructive sleep apnea Open wound of right thigh Pneumonia due to COVID-19 virus Pure hypercholesterolemia, unspecified Sciatica Staph infection Syncope Vitamin D deficiency Home Medications fluoxetine 20 mg capsule 40 mg PO QHS antidepressant 06/05/14 [History Last Taken 08/16/22] semaglutide 14 mg tablet (Rybelsus) 14 mg PO DAILY 04/29/22 [History Last Taken 08/17/22] ursodiol 250 mg tablet 250 mg PO BID #180 tabs 07/22/22 [Rx Last Taken 08/16/22] calcium 600 mg capsule 1,200 mg PO DAILY Check with primary doctor 08/17/22 [History Last Taken Unknown] cholecalciferol (vitamin D3) 125 mcg (5,000 unit) tablet (Vitamin D3) 125 mcg PO DAILY SUPPLEMENT 08/17/22 [History Last Taken 08/16/22] levothyroxine 200 mcg tablet 200 mcg PO DAILY THYROID 08/17/22 [History Last Taken 08/17/22] metformin 1,000 mg tablet 1,000 mg PO BID DM 08/17/22 [History Last Taken 08/17/22] vitamin E 670 mg (1,000 unit) capsule 670 mg PO DAILY SUPPLEMENT 08/17/22 [History Last Taken 08/16/22] diazepam 5 mg tablet (Valium) 5 mg PO BID PRN muscle spasm 7 days #14 tabs 08/22/22 [Rx Last Taken Unknown] doxycycline hyclate 100 mg capsule 100 mg PO BID #20 caps 08/22/22 [Rx Last Taken Unknown] hydrocodone-acetaminophen 5-325mg 5mg-325mg 1 tab PO TID PRN pain (scale score 7-10) 7 days #20 tabs 08/22/22 [Rx Last Taken Unknown] Allergy/AdvReac Type Severity Reaction Status Date / Time Acrylic Acid and Acrylates Allergy Other Verified 08/27/22 09:14 [steri-strips (acrylate)] adhesive tape Allergy BLISTERS/SC Verified 08/27/22 09:14 ARS codeine Allergy Shortness Verified 08/27/22 09:14 of breath Sulfa (Sulfonamide Allergy Rash Verified 08/27/22 09:14 Antibiotics) Tetanus Vaccines and Toxoid Allergy Swelling Verified 08/27/22 09:14 [Tetanus Vaccines & Toxoid] meperidine HCl [From Demerol] AdvReac Itching Verified 08/27/22 09:14 oxycodone AdvReac Itching Verified 08/27/22 09:14 Family History Mother Carotid stenosis Hx of CABG Heart disease CHF Father Diabetes Surgical History H/O shoulder surgery History of cholecystectomy History of gastric bypass History of hemiarthroplasty of left shoulder (03/12/18) History of hysterectomy History of tonsillectomy History of umbilical hernia repair Humeral head fracture Status post reverse total shoulder replacement Social History household members: spouse Smoking Status: Never smoker alcohol intake: never substance use type: does not use caffeine: Yes Type: carbonated beverages Number of servings: 3 ROS Constitutional Constitutional: Denies chills or fever(s) Eyes Eyes: Reports none ENT HEENT: Reports none Cardiovascular Cardiovascular: Denies chest pain or dyspnea Respiratory/Chest Respiratory/Chest: Denies cough or dyspnea Gastrointestinal Gastrointestinal: Denies diarrhea, nausea or vomiting Genitourinary Genitourinary: Reports as per HPI Musculoskeletal Musculoskeletal: Reports joint pain Integumentary Integumentary: Reports skin ulcer Neurologic Neurologic: Reports none Psychiatric Psychiatric: Reports none Endocrine Endocrinology: Reports as per HPI Vital Signs Vital Signs Vital Signs: 08/27/22 08:55 Temperature 96.9 F L Temperature Source Temporal Pulse Rate 90 Respiratory Rate 20 H Blood Pressure 132/77 H Blood Pressure Mean 95 Blood Pressure Source Monitor Physical Exam Const alert, oriented x3 and no apparent distress General Appearance: cooperative HEENT normocephalic Eyes General Eye: normal appearance of both eyes Neck full ROM Resp normal respiratory effort, normal air movement and clear to auscultation bilaterally Effort and Inspection: able to speak in complete sentences Cardio regular rate and regular rhythm Back/Spine normal ROM Extremity full ROM and normal capillary refill Skin Wound Narrative: Right medial thigh wound is beefy pink and no active bleeding. Shayla wound is stable with no erythema. Neuro oriented x3 Psych mental status grossly normal and thought process normal Debridement Note Debridement Note No debridement was completed: No debridement was completed today Post-Debridement Measurements and Additional Note: Post-Debridement Measurements/Treatment WC - Nurse 1 - General Ulcer Assessment Start: 08/27/22 08:49 Freq: Status: Active Protocol: VLADIMIR Activity Type Activity Date Activity User E-sign Co-sign Detail Recorded Client Recorded Date Recorded By Document 08/27/22 08:55 DL [id number] 08/27/22 09:11 DL 08/27/22 08:55 - Today's Visit Information Type of service Initial Visit Arrival Mode Ambulatory Transfer Assistance None Patient Identification Verified (Name & Yes ) Patient Requires Transmission-Based No Precautions Vital Signs Temperature (97.8 F-99.1 F) 96.9 F L Temperature Source Temporal Pulse Rate (60-100) 90 Pulse Location Monitor Respiratory Rate (12-18) 20 H Respiratory rate source Observation Blood Pressure (90/60-120/80) 132/77 H Blood Pressure Mean 95 Source Monitor Pain Scale: 0-10 Numeric Is Patient Pain Free? Yes Communication Assessment Preferred language [place] Able to Read Yes Able to Write Yes Right Hearing Abillity Use of Hearing Aid Left Hearing Abillity Use of Hearing Aid Visual Assistive Devices Glasses Teaching Assessment Preferences Verbal,Written, Demonstration Barriers to Learning None Readiness To Learn Good Willingness to Engage in Self Management Med Activies Readiness to Engage in Self Management High Activities Anxiety Level Calm Cooperation Cooperative Perception Coherent Interest in Health Problem Asks Questions Education Importance Acknowledges Need Does Patient Smoke tobacco or other No substances Smoking Status Never smoker Is Patient Diabetic Yes Functional Assessment Recent Decline in Ability to Perform Denies Any Declines Culture/Tenriism/Talent Engineer Cultural/Tenriism Needs that may affect No Treatment Plan Would you allow our hospital locker attendant to No meet you for the purpose of spiritual/ emotional support? Teaching: Wound Center Dressing Your Wound -Person Taught Patient *Welcome to the Wound Center -Person Taught Patient WC - Nurse 1 - General Ulcer Measurement Start: 08/27/22 08:49 Freq: Status: Active Protocol: Activity Type Activity Date Activity User E-sign Co-sign Detail Recorded Client Recorded Date Recorded By Document 08/27/22 08:55 DL [id number] 08/27/22 09:11 DL 08/27/22 08:55 Wound Center Nurse 1 #1 R Thigh -Current Size (cm) - Length 8 -Current Size (cm) - Width 5 -Current Size (cm) - Depth 2.1 -Total Square Cm 40 -Photo Taken Yes -Exudate Amt Medium -Exudate Type Serosanguineous -Wound Margin Distinct, Outline Attached -Granulation Amt Large (67-100%) -Granulation Quality Red -Necrosis Amt Small (1-33%) -Necrotic Tissue Type Adherent Slough -Structure Exposed N/A -Texture (Shayla-wound Skin Appearance) No Abnormality -Moisture (Shayla-wound Skin Appearance) No Abnormality -Color (Shayla-wound Skin Appearance) No Abnormality -Temperature (Shayla-wound Skin No Abnormality Appearance) (Pt Warm) -Tenderness on Palpation (Shayla-wound No Skin Appearance) -Ulcer Cleansing Not Cleansed -Foul Odor after Cleansing No -Anesthetic Used 4% Lidocaine Solution WC - Nurse 2 - General Ulcer CM Notes Start: 08/27/22 08:49 Freq: Status: Active Protocol: Activity Type Activity Date Activity User E-sign Co-sign Detail Recorded Client Recorded Date Recorded By Document 08/27/22 09:29 [id number] 08/27/22 09:31 08/27/22 09:29 Wound Center Nurse 2 -Correct Patient No -Correct Side, Site, Position No -Correct Procedure No -Procedure Performed No -Wound/Ulcer Outcome Not Healed Pain Scale: 0-10 Numeric Is Patient Pain Free? Yes Charges/Coding Procedures Integumentary [id number]: [id number] Global Visit Assessment/Plan Assessment/Plan (1) Open wound of right thigh: CODE(S): S71.101A - Unspecified open wound, right thigh, initial encounter (2) Other acute postprocedural pain: CODE(S): G89.18 - Other acute postprocedural pain (3) Cellulitis of right thigh: CODE(S): L03.115 - Cellulitis of right lower limb (4) Abscess of right thigh: CODE(S): L02.415 - Cutaneous abscess of right lower limb (5) Diabetes mellitus, type II: CODE(S): E11.9 - Type 2 diabetes mellitus without complications QUALIFIERS: Diabetes mellitus oil heaterman insulin use: without oil heaterman use Diabetes mellitus complication status: with other specified complication Qualified Code(s): E11.69 - Type 2 diabetes mellitus with other specified complication (6) Controlled type 2 diabetes mellitus with hyperglycemia: CODE(S): E11.65 - Type 2 diabetes mellitus with hyperglycemia PLAN: Plan Patient evaluated at the wound healing center. Wound care - Wound VAC at 150 mmHg to be changed 3 times per week. Wash the wound and the shayla wound with soap and water at the time of the dressing change. She has home health to assist with her wound VAC dressing changes. Continue Doxycycline for positive operative cultures. Follow up one week.
== END 2022-08-31 23:59 | disposition home or self-care (01) ==
LOC: WC 08:42
PROVIDERS: PCP Internal Medicine; Referring Provider Nurse Practitioner Family; Visit Provider Nurse Practitioner Family
DX: L03.115 Cellulitis of right lower limb (principal); E11.65 Type 2 diabetes mellitus with hyperglycemia; S71.101D Unspecified open wound, right thigh, subsequent encounter; M79.651 Pain in right thigh; L02.415 Cutaneous abscess of right lower limb; I10 Essential (primary) hypertension; M79.89 Other specified soft tissue disorders; E78.00 Pure hypercholesterolemia, unspecified; E03.9 Hypothyroidism, unspecified; Z79.899 Other long term (current) drug therapy; Z79.890 Hormone replacement therapy; E55.9 Vitamin D deficiency, unspecified; X58.XXXD Exposure to other specified factors, subsequent encounter
CPT/HCPCS: 97606; 99214; G0463

== ENCOUNTER 2022-10-01 11:15 | Outpatient (RCR) | payer MEDICARE, SELFPAY ==
[2022-09-01 00:52] VITALS: BP 132/77; PULSE 90; RESP 20; TEMP 36.1
[2022-09-03 10:49] VITALS: BP 126/80; PULSE 88; RESP 18; TEMP 36.2
--- NOTE | 2022-09-03 12:34 | PCM.WC.PN ---
History of Present Illness Date of Service: 09/03/22 Chief Complaint: Right medial thigh wound History of Wound: 66-year-old female with a history of diabetes mellitus was admitted with a diabetic abscess right medial thigh due to increasing redness, and pain, and swelling. She initially came to the ED on 08/15/22. An ultrasound was done which showed no DVT. She was discharged home. She returned to the ED the next day with a fever. Her WBC was 15.4. She was given a dose of Unasyn and discharged on Keflex. She returned to the ED the next day with continued fever. WBC increased to 17. She was given another dose of Unasyn and admitted. Her antibiotics were later changed to Vancomycin and Zosyn. The redness has improved but is persistent in the right medial thigh. Ultrasound was done which showed hypoechoic subcutaneous collection in area of clinical concern measures 15 x 8 x 4 mm. Subcutaneous soft tissue edema. Multiple lymph nodes, largest measures up to 4.3 cm in long axis. Probable small subcutaneous fluid collection, seroma versus abscess in the area of clinical concern. Surgery 08/20/22 - Surgical preparation right medial thigh with incision and drainage and excisional debridement diabetic abscess (150 cm2). Operative cultures positive for Staphylococcus aureus and she was treated with Doxycycline. Wound care - Wound VAC at 150 mmHg to be changed 3 times per week. Progress of Wound: Right medial thigh ulcer beefy pink, with no active bleeding. No erythema on the darion wound. She is experiencing a burning, electrical pain in the area of her wound. Objective Data Objective Data Vital Signs: Vital Signs Temp Pulse Resp BP 97.2 F L 88 18 126/80 H 09/03/22 10:49 09/03/22 10:49 09/03/22 10:49 09/03/22 10:49 Charges/Coding Procedures Integumentary [id number]: [id number] Global Visit Debridement Note Debridement Note Wound debrided: medial thigh wound Laterality: Right Type of Debridement: Excisional debridement Anesthesia Used: 5% Lidocaine Gel Depth: Down to and including healthy tissue and in the subcutaneous layer Percentage of wound debrided: 100 Instrument Used: 7mm curette Tissue Removed: Devitalized tissue and slough Severity: Fat Layer Exposed Amount of bleeding with debridement: Mild Bleeding Controlled with: Pressure and Compression and gauze Patient tolerated procedure: Patient tolerated procedure well Post-Debridement Measurements and Additional Note: Post-Debridement Measurements/Treatment WILLIS - Nurse 1 - General Ulcer Assessment Start: 09/03/22 10:49 Freq: Status: Active Protocol: VLADIMIR Activity Type Activity Date Activity User E-sign Co-sign Detail Recorded Client Recorded Date Recorded By Document 09/03/22 10:49 COSTA [id number] 09/03/22 10:59 COSTA 09/03/22 10:49 WC - Today's Visit Information Type of service Follow-up Visit (Physician/ESTHETICIAN SPA ) Arrival Mode Ambulatory Transfer Assistance None Patient Identification Verified (Name & Yes ) Patient Requires Transmission-Based No Precautions Safety Precautions NA Vital Signs Temperature (97.8 F-99.1 F) 97.2 F L Temperature Source Temporal Pulse Rate (60-100) 88 Respiratory Rate (12-18) 18 Blood Pressure (90/60-120/80) 126/80 H Blood Pressure Mean (mm Hg) 95 History Since Last Visit- (Skip if this is Patient's initial visit) Have you changed medications since your No last visit? Any new allergies or adverse reactions No Had a fall/change in ADL's that may No increase risk of falls Signs or symptoms of abuse and/or No neglect since last visit Have you been in the hospital since your No last visit? Has dressing in place as prescribed Yes Has compression in place as prescribed N/A Has offloadiing in place as prescribed N/A Experienced any changes in pain level or No management Pain Scale: 0-10 Numeric Is Patient Pain Free? Yes WILLIS - Nurse 1 - General Ulcer Measurement Start: 09/03/22 10:49 Freq: Status: Active Protocol: Activity Type Activity Date Activity User E-sign Co-sign Detail Recorded Client Recorded Date Recorded By Document 09/03/22 10:49 COSTA [id number] 09/03/22 10:59 COSTA 09/03/22 10:49 Wound Center Nurse 1 #1 R Thigh -Current Size (cm) - Length 6.0 -Current Size (cm) - Width 14.2 -Current Size (cm) - Depth 1.5 -Total Square Cm 85.20 -Photo Taken No -Epithelialization Medium 34-66% -Tunneling Yes -Tunneling Position (O'clock) 8 -Tunneling Distance (cm) 2 -Undermining/Tunneling No -Circular Undermining No -Granulation Amt Medium (34-66%) -Granulation Quality Pale -Slough/Fibrin Yes -Necrosis Amt Medium (34-66%) -Necrotic Tissue Type Adherent Slough -Ulcer Cleansing Soap and Water -Foul Odor after Cleansing No -Anesthetic Used 5% Lidocaine Gel WILLIS - Nurse 2 - General Ulcer CM Notes Start: 09/03/22 10:49 Freq: Status: Active Protocol: Activity Type Activity Date Activity User E-sign Co-sign Detail Recorded Client Recorded Date Recorded By Document 09/03/22 11:12 [id number] 09/03/22 11:21 09/03/22 11:12 Wound Center Nurse 2 -Time 11:15 -Correct Patient Yes -Correct Side, Site, Position Yes -Correct Procedure Yes -Procedure Performed Yes -Type of Procedure Debridement -Clinical Debridement Subcutaneous -Tissue Removed Subcutaneous -Post Debridement (cm) - Length 7.0 -Post Debridement (cm) - Width 15.0 -Post Debridement (cm) - Depth 2.0 -Total Square (Post) (cm) 105.00 -Area of Debridement (cm) - Length 7.0 -Area of Debridement (cm) - Width 15.0 -Total Square (Area) (cm) 105.00 -Tunneling No -Undermining/Tunneling No -Circular Undermining No -Wound/Ulcer Outcome Not Healed -Ulcer Cleansing Rinsed/ Irrigated with Saline -Foul Odor after Cleansing No -Bioengineered Tissue No -Bleeding Controlled with Pressure -Treatment Response Procedure Tolerated Well -Offloading No -Debridement - Subq, 1st 20sq cm Yes -Debridement, SubQ, ea addt'l 20sq cm 5 or part thereof Pain Scale: 0-10 Numeric Is Patient Pain Free? Yes - Nurse 3 - General Ulcer D/C NN Start: 09/03/22 10:49 Freq: Status: Active Protocol: Activity Type Activity Date Activity User E-sign Co-sign Detail Recorded Client Recorded Date Recorded By Document 09/03/22 11:[address] [id number] 09/03/22 11:48 PL 09/03/22 11:48 Wound Care Center Nurse 3 #1 R Thigh -Ulcer Cleansing Rinsed/ Irrigated with Saline -Foul Odor after Cleansing No -Negative Pressure Wound Therapy Continue -Setting (mmHg) 150 -Negative Pressure is Continuous -NPWT Application Charge NPWT & Debridement (nc ) Pain Scale: 0-10 Numeric Is Patient Pain Free? Yes WC - Visit Discharge Discharge Condition Stable Ambulatory Status Ambulatory Transportation Private Auto Assessment/Plan Assessment/Plan (1) Open wound of right thigh: CODE(S): S71.101A - Unspecified open wound, right thigh, initial encounter (2) Other acute postprocedural pain: CODE(S): G89.18 - Other acute postprocedural pain (3) Cellulitis of right thigh: CODE(S): L03.115 - Cellulitis of right lower limb (4) Abscess of right thigh: CODE(S): L02.415 - Cutaneous abscess of right lower limb (5) Diabetes mellitus, type II: CODE(S): E11.9 - Type 2 diabetes mellitus without complications QUALIFIERS: Diabetes mellitus correction insulin use: without adjunct faculty for medical terminology use Diabetes mellitus complication status: with other specified complication Qualified Code(s): E11.69 - Type 2 diabetes mellitus with other specified complication (6) Controlled type 2 diabetes mellitus with hyperglycemia: CODE(S): E11.65 - Type 2 diabetes mellitus with hyperglycemia PLAN: Plan Patient evaluated at the wound healing center. Wound care - Wound VAC at 150 mmHg to be changed 3 times per week. Wash the wound and the darion wound with soap and water at the time of the dressing change. MARIBEL wrap for compression. She has home health to assist with her wound VAC dressing changes. Continue Doxycycline for positive operative cultures. Prescribed Gabapentin 200 mg twice daily for the burning nerve pain she is experiencing. Follow up one week.
[2022-09-10 10:13] VITALS: BP 124/78; PULSE 81; RESP 18; TEMP 36.4
--- NOTE | 2022-09-10 12:40 | PN.PCM_ITS ---
History of Present Illness Date of Service: 09/10/22 Chief Complaint: Right medial thigh wound History of Wound: 66-year-old female with a history of diabetes mellitus was admitted with a diabetic abscess right medial thigh due to increasing redness, and pain, and swelling. She initially came to the ED on 08/15/22. An ultrasound was done which showed no DVT. She was discharged home. She returned to the ED the next day with a fever. Her WBC was 15.4. She was given a dose of Unasyn and discharged on Keflex. She returned to the ED the next day with continued fever. WBC increased to 17. She was given another dose of Unasyn and admitted. Her antibiotics were later changed to Vancomycin and Zosyn. The redness has improved but is persistent in the right medial thigh. Ultrasound was done which showed hypoechoic subcutaneous collection in area of clinical concern measures 15 x 8 x 4 mm. Subcutaneous soft tissue edema. Multiple lymph nodes, largest measures up to 4.3 cm in long axis. Probable small subcutaneous fluid collection, seroma versus abscess in the area of clinical concern. Surgery 08/20/22 - Surgical preparation right medial thigh with incision and drainage and excisional debridement diabetic abscess (150 cm2). Operative cultures positive for Staphylococcus aureus and she was treated with Doxycycline. Wound care - Wound VAC at 150 mmHg to be changed 3 times per week. Progress of Wound: Right medial thigh ulcer beefy pink, with no active bleeding. No erythema on the shayla wound. It is smaller in size. The burning, electrical pain that she has been experiencing is improving. The Gabapentin makes her very sleepy, so she only takes it as needed. Objective Data Objective Data Vital Signs: Vital Signs Temp Pulse Resp BP 97.6 F L 81 18 124/78 H 09/10/22 10:13 09/10/22 10:13 09/10/22 10:13 09/10/22 10:13 Charges/Coding Procedures Integumentary [id number]: [id number] Global Visit Debridement Note Debridement Note Wound debrided: medial thigh wound Laterality: Right Type of Debridement: Excisional debridement Anesthesia Used: 5% Lidocaine Gel Depth: Down to and including healthy tissue and in the subcutaneous layer Percentage of wound debrided: 100 Instrument Used: 7mm curette Tissue Removed: Devitalized tissue and slough Severity: Fat Layer Exposed Amount of bleeding with debridement: Mild Bleeding Controlled with: Pressure and Compression and gauze Patient tolerated procedure: Patient tolerated procedure well Post-Debridement Measurements and Additional Note: Post-Debridement Measurements/Treatment - Nurse 1 - General Ulcer Assessment Start: 09/03/22 10:49 Freq: Status: Active Protocol: VLADIMIR Activity Type Activity Date Activity User E-sign Co-sign Detail Recorded Client Recorded Date Recorded By Document 09/03/22 10:49 PL [id number] 09/03/22 10:59 PL Document 09/10/22 10:13 PL [id number] 09/10/22 10:23 PL 09/03/22 09/10/22 10:49 10:13 - Today's Visit Information Type of service Follow-up Visit Follow-up Visit (Physician/READING INTERVENTION TEACHER (Physician/READING INTERVENTION TEACHER ) ) Arrival Mode Ambulatory Ambulatory Transfer Assistance None None Patient Identification Verified (Name & Yes Yes ) Patient Requires Transmission-Based No No Precautions Safety Precautions NA NA Vital Signs Temperature (97.8 F-99.1 F) 97.2 F L 97.6 F L Temperature Source Temporal Temporal Pulse Rate (60-100) 88 81 Respiratory Rate (12-18) 18 18 Blood Pressure (90/60-120/80) 126/80 H 124/78 H Blood Pressure Mean (mm Hg) 95 93 History Since Last Visit- (Skip if this is Patient's initial visit) Have you changed medications since your No No last visit? Any new allergies or adverse reactions No No Had a fall/change in ADL's that may No increase risk of falls Signs or symptoms of abuse and/or No No neglect since last visit Have you been in the hospital since your No No last visit? Has dressing in place as prescribed Yes Yes Has compression in place as prescribed N/A N/A Has offloadiing in place as prescribed N/A N/A Experienced any changes in pain level or No No management Pain Scale: 0-10 Numeric Is Patient Pain Free? Yes Yes - Nurse 1 - General Ulcer Measurement Start: 09/03/22 10:49 Freq: Status: Active Protocol: Activity Type Activity Date Activity User E-sign Co-sign Detail Recorded Client Recorded Date Recorded By Document 09/03/22 10:49 PL [id number] 09/03/22 10:59 PL Document 09/10/22 10:13 PL [id number] 09/10/22 10:23 PL 09/03/22 09/10/22 10:49 10:13 Wound Center Nurse 1 #1 R Thigh -Current Size (cm) - Length 6.0 12.0 -Current Size (cm) - Width 14.2 6.0 -Current Size (cm) - Depth 1.5 1.5 -Total Square Cm 85.20 72.00 -Photo Taken No -Epithelialization Medium 34-66% Large 67-100% -Tunneling Yes No -Tunneling Position (O'clock) 8 -Tunneling Distance (cm) 2 -Undermining/Tunneling No No -Circular Undermining No No -Classification - Thickness Full Thickness without Exposed Support Structure -Exudate Amt Large -Exudate Type Serosanguineous -Granulation Amt Medium (34-66%) Large (67-100%) -Granulation Quality Pale [place] -Slough/Fibrin Yes Yes -Necrosis Amt Medium (34-66%) Small (1-33%) -Necrotic Tissue Type Adherent Slough Adherent Slough -Texture (Shayla-wound Skin Appearance) No Abnormality -Moisture (Shayla-wound Skin Appearance) No Abnormality -Color (Shayla-wound Skin Appearance) Assessed -Temperature (Shayla-wound Skin No Abnormality Appearance) (Pt Warm) -Tenderness on Palpation (Shayla-wound No Skin Appearance) -Ulcer Cleansing Soap and Water Soap and Water -Foul Odor after Cleansing No No -Anesthetic Used 5% Lidocaine 5% Lidocaine Gel Gel WC - Nurse 2 - General Ulcer CM Notes Start: 09/03/22 10:49 Freq: Status: Active Protocol: Activity Type Activity Date Activity User E-sign Co-sign Detail Recorded Client Recorded Date Recorded By Document 09/03/22 11:12 [id number] 09/03/22 11:21 Document 09/10/22 10:30 ESE [id number] 09/10/22 10:33 09/03/22 09/10/22 11:12 10:30 Wound Center Nurse 2 #1 R Thigh -Time 11:15 10:30 -Correct Patient Yes Yes -Correct Side, Site, Position Yes Yes -Correct Procedure Yes Yes -Procedure Performed Yes Yes -Type of Procedure Debridement Debridement -Clinical Debridement Subcutaneous Subcutaneous -Tissue Removed Subcutaneous Subcutaneous -Post Debridement (cm) - Length 7.0 5.8 -Post Debridement (cm) - Width 15.0 13.0 -Post Debridement (cm) - Depth 2.0 1.7 -Total Square (Post) (cm) 105.00 75.40 -Area of Debridement (cm) - Length 7.0 5.8 -Area of Debridement (cm) - Width 15.0 13.0 -Total Square (Area) (cm) 105.00 75.40 -Tunneling No No -Undermining/Tunneling No No -Circular Undermining No No -Wound/Ulcer Outcome Not Healed Not Healed -Ulcer Cleansing Rinsed/ Rinsed/ Irrigated with Irrigated with Saline Saline -Foul Odor after Cleansing No No -Bioengineered Tissue No No -Bleeding Controlled with Pressure Pressure -Treatment Response Procedure Procedure Tolerated Well Tolerated Well -Offloading No No -Debridement - Subq, 1st 20sq cm Yes Yes -Debridement, SubQ, ea addt'l 20sq cm 5 3 or part thereof Pain Scale: 0-10 Numeric Is Patient Pain Free? Yes Yes - Nurse 3 - General Ulcer D/C NN Start: 09/03/22 10:49 Freq: Status: Active Protocol: Activity Type Activity Date Activity User E-sign Co-sign Detail Recorded Client Recorded Date Recorded By Document 09/03/22 11:48 PL [id number] 09/03/22 11:48 PL Document 09/10/22 11:00 PL [id number] 09/10/22 11:01 PL 09/03/22 09/10/22 11:48 11:00 Wound Care Center Nurse 3 #1 R Thigh -Ulcer Cleansing Rinsed/ Rinsed/ Irrigated with Irrigated with Saline Saline -Foul Odor after Cleansing No No -Negative Pressure Wound Therapy Continue Continue -Setting (mmHg) 150 150 -Negative Pressure is Continuous Continuous -NPWT Application Charge NPWT & NPWT & Debridement (nc Debridement (nc ) ) Right -Compression Wrap Alex Wrap Pain Scale: 0-10 Numeric Is Patient Pain Free? Yes Yes - Visit Discharge Discharge Condition Stable Stable Ambulatory Status Ambulatory Ambulatory Transportation Private Auto Private Auto Assessment/Plan Assessment/Plan (1) Open wound of right thigh: CODE(S): S71.101A - Unspecified open wound, right thigh, initial encounter (2) Other acute postprocedural pain: CODE(S): G89.18 - Other acute postprocedural pain (3) Cellulitis of right thigh: CODE(S): L03.115 - Cellulitis of right lower limb (4) Abscess of right thigh: CODE(S): L02.415 - Cutaneous abscess of right lower limb (5) Diabetes mellitus, type II: CODE(S): E11.9 - Type 2 diabetes mellitus without complications QUALIFIERS: Diabetes mellitus extermination inspector insulin use: without extermination inspector use Diabetes mellitus complication status: with other specified complication Qualified Code(s): E11.69 - Type 2 diabetes mellitus with other specified complication (6) Controlled type 2 diabetes mellitus with hyperglycemia: CODE(S): E11.65 - Type 2 diabetes mellitus with hyperglycemia PLAN: Plan Patient evaluated at the wound healing center. Wound care - Wound VAC at 150 mmHg to be changed 3 times per week. Wash the wound and the shayla wound with soap and water at the time of the dressing change. ALEX wrap for compression. She has home health to assist with her wound VAC dressing changes. Continue Doxycycline for positive operative cultures. The Gabapentin makes her tired. Suggested just taking 100 mg at night to see if that helps with the burning nerve pain. Follow up one week.
--- NOTE | 2022-09-17 11:04 | PCM.WC.PN ---
History of Present Illness Date of Service: 09/17/22 Chief Complaint: Right medial thigh wound History of Wound: 66-year-old female with a history of diabetes mellitus was admitted with a diabetic abscess right medial thigh due to increasing redness, and pain, and swelling. She initially came to the ED on 08/15/22. An ultrasound was done which showed no DVT. She was discharged home. She returned to the ED the next day with a fever. Her WBC was 15.4. She was given a dose of Unasyn and discharged on Keflex. She returned to the ED the next day with continued fever. WBC increased to 17. She was given another dose of Unasyn and admitted. Her antibiotics were later changed to Vancomycin and Zosyn. The redness has improved but is persistent in the right medial thigh. Ultrasound was done which showed hypoechoic subcutaneous collection in area of clinical concern measures 15 x 8 x 4 mm. Subcutaneous soft tissue edema. Multiple lymph nodes, largest measures up to 4.3 cm in long axis. Probable small subcutaneous fluid collection, seroma versus abscess in the area of clinical concern. Surgery 08/20/22 - Surgical preparation right medial thigh with incision and drainage and excisional debridement diabetic abscess (150 cm2). Operative cultures positive for Staphylococcus aureus and she was treated with Doxycycline. Wound care - Wound VAC at 150 mmHg to be changed 3 times per week. Progress of Wound: Right medial thigh ulcer beefy pink, it is smaller in size. No erythema on the shayla wound. She is starting to feel depressed because she only leaves her house to come to the wound center weekly. Objective Data Objective Data Vital Signs: Vital Signs Temp Pulse Resp BP 97.6 F L 81 18 124/78 H 09/10/22 10:13 09/10/22 10:13 09/10/22 10:13 09/10/22 10:13 Charges/Coding Procedures Integumentary [id number]: [id number] Global Visit Debridement Note Debridement Note Wound debrided: medial thigh wound Laterality: Right Type of Debridement: Excisional debridement Anesthesia Used: 5% Lidocaine Gel Depth: Down to and including healthy tissue and in the subcutaneous layer Percentage of wound debrided: 100 Instrument Used: 7mm curette Tissue Removed: Devitalized tissue and slough Severity: Fat Layer Exposed Amount of bleeding with debridement: Mild Bleeding Controlled with: Pressure and Compression and gauze Patient tolerated procedure: Patient tolerated procedure well Post-Debridement Measurements and Additional Note: Post-Debridement Measurements/Treatment WC - Nurse 1 - General Ulcer Assessment Start: 09/03/22 10:49 Freq: Status: Active Protocol: VLADIMIR Activity Type Activity Date Activity User E-sign Co-sign Detail Recorded Client Recorded Date Recorded By Document 09/03/22 10:49 PL [id number] 09/03/22 10:59 PL Document 09/10/22 10:13 PL [id number] 09/10/22 10:23 PL 09/03/22 09/10/22 10:49 10:13 WC - Today's Visit Information Type of service Follow-up Visit Follow-up Visit (Physician/PRINCIPAL ACCOUNT CLERK (Physician/PRINCIPAL ACCOUNT CLERK ) ) Arrival Mode Ambulatory Ambulatory Transfer Assistance None None Patient Identification Verified (Name & Yes Yes ) Patient Requires Transmission-Based No No Precautions Safety Precautions NA NA Vital Signs Temperature (97.8 F-99.1 F) 97.2 F L 97.6 F L Temperature Source Temporal Temporal Pulse Rate (60-100) 88 81 Respiratory Rate (12-18) 18 18 Blood Pressure (90/60-120/80) 126/80 H 124/78 H Blood Pressure Mean (mm Hg) 95 93 History Since Last Visit- (Skip if this is Patient's initial visit) Have you changed medications since your No No last visit? Any new allergies or adverse reactions No No Had a fall/change in ADL's that may No increase risk of falls Signs or symptoms of abuse and/or No No neglect since last visit Have you been in the hospital since your No No last visit? Has dressing in place as prescribed Yes Yes Has compression in place as prescribed N/A N/A Has offloadiing in place as prescribed N/A N/A Experienced any changes in pain level or No No management Pain Scale: 0-10 Numeric Is Patient Pain Free? Yes Yes WILLIS - Nurse 1 - General Ulcer Measurement Start: 09/03/22 10:49 Freq: Status: Active Protocol: Activity Type Activity Date Activity User E-sign Co-sign Detail Recorded Client Recorded Date Recorded By Document 09/03/22 10:49 PL [id number] 09/03/22 10:59 PL Document 09/10/22 10:13 PL [id number] 09/10/22 10:23 PL 09/03/22 09/10/22 10:49 10:13 Wound Center Nurse 1 #1 R Thigh -Current Size (cm) - Length 6.0 12.0 -Current Size (cm) - Width 14.2 6.0 -Current Size (cm) - Depth 1.5 1.5 -Total Square Cm 85.20 72.00 -Photo Taken No -Epithelialization Medium 34-66% Large 67-100% -Tunneling Yes No -Tunneling Position (O'clock) 8 -Tunneling Distance (cm) 2 -Undermining/Tunneling No No -Circular Undermining No No -Classification - Thickness Full Thickness without Exposed Support Structure -Exudate Amt Large -Exudate Type Serosanguineous -Granulation Amt Medium (34-66%) Large (67-100%) -Granulation Quality Pale [place] -Slough/Fibrin Yes Yes -Necrosis Amt Medium (34-66%) Small (1-33%) -Necrotic Tissue Type Adherent Slough Adherent Slough -Texture (Shayla-wound Skin Appearance) No Abnormality -Moisture (Shayla-wound Skin Appearance) No Abnormality -Color (Shayla-wound Skin Appearance) Assessed -Temperature (Shayla-wound Skin No Abnormality Appearance) (Pt Warm) -Tenderness on Palpation (Shayla-wound No Skin Appearance) -Ulcer Cleansing Soap and Water Soap and Water -Foul Odor after Cleansing No No -Anesthetic Used 5% Lidocaine 5% Lidocaine Gel Gel WC - Nurse 2 - General Ulcer CM Notes Start: 09/03/22 10:49 Freq: Status: Active Protocol: Activity Type Activity Date Activity User E-sign Co-sign Detail Recorded Client Recorded Date Recorded By Document 09/03/22 11:12 [id number] 09/03/22 11:21 Document 09/10/22 10:30 [id number] 09/10/22 10:33 Document 09/17/22 10:48 [id number] 09/17/22 10:50 09/03/22 09/10/22 09/17/22 11:12 10:30 10:48 Wound Center Nurse 2 #1 R Thigh -Time 11:15 10:30 10:48 -Correct Patient Yes Yes Yes -Correct Side, Site, Position Yes Yes Yes -Correct Procedure Yes Yes Yes -Procedure Performed Yes Yes Yes -Type of Procedure Debridement Debridement Debridement -Clinical Debridement Subcutaneous Subcutaneous Subcutaneous -Tissue Removed Subcutaneous Subcutaneous Subcutaneous -Post Debridement (cm) - Length 7.0 5.8 4.5 -Post Debridement (cm) - Width 15.0 13.0 10.2 -Post Debridement (cm) - Depth 2.0 1.7 1.4 -Total Square (Post) (cm) 105.00 75.40 45.90 -Area of Debridement (cm) - Length 7.0 5.8 4.5 -Area of Debridement (cm) - Width 15.0 13.0 10.2 -Total Square (Area) (cm) 105.00 75.40 45.90 -Tunneling No No No -Undermining/Tunneling No No No -Circular Undermining No No No -Wound/Ulcer Outcome Not Healed Not Healed Not Healed -Ulcer Cleansing Rinsed/ Rinsed/ Rinsed/ Irrigated with Irrigated with Irrigated with Saline Saline Saline -Foul Odor after Cleansing No No No -Bioengineered Tissue No No No -Bleeding Controlled with Pressure Pressure Pressure -Treatment Response Procedure Procedure Procedure Tolerated Well Tolerated Well Tolerated Well -Offloading No No No -Debridement - Subq, 1st 20sq cm Yes Yes Yes -Debridement, SubQ, ea addt'l 20sq cm 5 3 2 or part thereof Pain Scale: 0-10 Numeric Is Patient Pain Free? Yes Yes Yes - Nurse 3 - General Ulcer D/C NN Start: 09/03/22 10:49 Freq: Status: Active Protocol: Activity Type Activity Date Activity User E-sign Co-sign Detail Recorded Client Recorded Date Recorded By Document 09/03/22 11:48 [id number] 09/03/22 11:48 Document 09/10/22 11:00 [id number] 09/10/22 11:01 09/03/22 09/10/22 11:48 11:00 Wound Care Center Nurse 3 #1 R Thigh -Ulcer Cleansing Rinsed/ Rinsed/ Irrigated with Irrigated with Saline Saline -Foul Odor after Cleansing No No -Negative Pressure Wound Therapy Continue Continue -Setting (mmHg) 150 150 -Negative Pressure is Continuous Continuous -NPWT Application Charge NPWT & NPWT & Debridement (nc Debridement (nc ) ) Right -Compression Wrap Alex Wrap Pain Scale: 0-10 Numeric Is Patient Pain Free? Yes Yes - Visit Discharge Discharge Condition Stable Stable Ambulatory Status Ambulatory Ambulatory Transportation Private Auto Private Auto Assessment/Plan Assessment/Plan (1) Open wound of right thigh: CODE(S): S71.101A - Unspecified open wound, right thigh, initial encounter (2) Other acute postprocedural pain: CODE(S): G89.18 - Other acute postprocedural pain (3) Cellulitis of right thigh: CODE(S): L03.115 - Cellulitis of right lower limb (4) Abscess of right thigh: CODE(S): L02.415 - Cutaneous abscess of right lower limb (5) Diabetes mellitus, type II: CODE(S): E11.9 - Type 2 diabetes mellitus without complications QUALIFIERS: Diabetes mellitus keno terminal operator insulin use: without keno terminal operator use Diabetes mellitus complication status: with other specified complication Qualified Code(s): E11.69 - Type 2 diabetes mellitus with other specified complication (6) Controlled type 2 diabetes mellitus with hyperglycemia: CODE(S): E11.65 - Type 2 diabetes mellitus with hyperglycemia PLAN: Plan Patient evaluated at the wound healing center. Wound care - Wound VAC at 150 mmHg to be changed 3 times per week. Wash the wound and the shayla wound with soap and water at the time of the dressing change. ALEX wrap for compression. She has home health to assist with her wound VAC dressing changes. Continue Doxycycline for positive operative cultures. The Gabapentin makes her tired. Suggested just taking 100 mg at night to see if that helps with the burning nerve pain. Follow up one week.
[2022-09-17 11:35] VITALS: BP 128/68; PULSE 79; TEMP 36.8
[2022-09-24 10:47] VITALS: BP 123/71; PULSE 75; TEMP 36.5
--- NOTE | 2022-09-24 11:11 | PCM.WC.PN ---
History of Present Illness Date of Service: 09/24/22 Chief Complaint: Right medial thigh wound History of Wound: 66-year-old female with a history of diabetes mellitus was admitted with a diabetic abscess right medial thigh due to increasing redness, and pain, and swelling. She initially came to the ED on 08/15/22. An ultrasound was done which showed no DVT. She was discharged home. She returned to the ED the next day with a fever. Her WBC was 15.4. She was given a dose of Unasyn and discharged on Keflex. She returned to the ED the next day with continued fever. WBC increased to 17. She was given another dose of Unasyn and admitted. Her antibiotics were later changed to Vancomycin and Zosyn. The redness has improved but is persistent in the right medial thigh. Ultrasound was done which showed hypoechoic subcutaneous collection in area of clinical concern measures 15 x 8 x 4 mm. Subcutaneous soft tissue edema. Multiple lymph nodes, largest measures up to 4.3 cm in long axis. Probable small subcutaneous fluid collection, seroma versus abscess in the area of clinical concern. Surgery 08/20/22 - Surgical preparation right medial thigh with incision and drainage and excisional debridement diabetic abscess (150 cm2). Operative cultures positive for Staphylococcus aureus and she was treated with Doxycycline. Today she denies fever, chills, nausea or vomiting. Progress of Wound: Right medial thigh ulcer beefy pink, it is much smaller in size and depth. She has some excoriation on her shayla wound. She states she feel mentally better this week. Objective Data Objective Data Vital Signs: Vital Signs Temp Pulse Resp BP 97.7 F L 75 18 123/71 H 09/24/22 10:47 09/24/22 10:47 09/10/22 10:13 09/24/22 10:47 Charges/Coding Procedures Integumentary [id number]: [id number] Global Visit Debridement Note Debridement Note Wound debrided: medial thigh wound Laterality: Right Type of Debridement: Excisional debridement Anesthesia Used: 5% Lidocaine Gel Depth: Down to and including healthy tissue and in the subcutaneous layer Percentage of wound debrided: 100 Instrument Used: 5mm curette Tissue Removed: Devitalized tissue and slough Severity: Fat Layer Exposed Amount of bleeding with debridement: Mild Bleeding Controlled with: Pressure and Compression and gauze Patient tolerated procedure: Patient tolerated procedure well Post-Debridement Measurements and Additional Note: Post-Debridement Measurements/Treatment WC - Nurse 1 - General Ulcer Assessment Start: 09/03/22 10:49 Freq: Status: Active Protocol: VLADIMIR Activity Type Activity Date Activity User E-sign Co-sign Detail Recorded Client Recorded Date Recorded By Document 09/03/22 10:49 PL [id number] 09/03/22 10:59 PL Document 09/10/22 10:13 PL [id number] 09/10/22 10:23 PL Document 09/17/22 11:35 AK [id number] 09/17/22 11:37 AK Document 09/24/22 10:47 AK [id number] 09/24/22 10:49 AK 09/03/22 09/10/22 09/17/22 10:49 10:13 11:35 WC - Today's Visit Information Type of service Follow-up Visit Follow-up Visit Follow-up Visit (Physician/PROTECTOR PLATE ATTACHER (Physician/PROTECTOR PLATE ATTACHER (Physician/PROTECTOR PLATE ATTACHER ) ) ) Arrival Mode Ambulatory Ambulatory Ambulatory Transfer Assistance None None Patient Identification Verified (Name & Yes Yes Yes ) Patient Requires Transmission-Based No No No Precautions Safety Precautions NA NA Vital Signs Temperature (97.8 F-99.1 F) 97.2 F L 97.6 F L 98.3 F Temperature Source Temporal Temporal Temporal Pulse Rate (60-100) 88 81 79 Pulse Location Monitor Respiratory Rate (12-18) 18 18 Blood Pressure (90/60-120/80) 126/80 H 124/78 H 128/68 H Blood Pressure Mean (mm Hg) 95 93 88 Source Monitor History Since Last Visit- (Skip if this is Patient's initial visit) Have you changed medications since your No No No last visit? Any new allergies or adverse reactions No No No Had a fall/change in ADL's that may No No increase risk of falls Signs or symptoms of abuse and/or No No No neglect since last visit Have you been in the hospital since your No No No last visit? Has dressing in place as prescribed Yes Yes Yes Has compression in place as prescribed N/A N/A N/A Has offloadiing in place as prescribed N/A N/A N/A Experienced any changes in pain level or No No No management Left Footwear Regular Shoe Right Footwear Regular Shoe Pain Scale: 0-10 Numeric Is Patient Pain Free? Yes Yes No 09/24/22 10:47 - Today's Visit Information Type of service Follow-up Visit (Physician/PROTECTOR PLATE ATTACHER ) Arrival Mode Ambulatory Transfer Assistance Patient Identification Verified (Name & Yes ) Patient Requires Transmission-Based No Precautions Safety Precautions NA Vital Signs Temperature (97.8 F-99.1 F) 97.7 F L Temperature Source Temporal Pulse Rate (60-100) 75 Pulse Location Monitor Respiratory Rate (12-18) Blood Pressure (90/60-120/80) 123/71 H Blood Pressure Mean (mm Hg) 88 Source Monitor History Since Last Visit- (Skip if this is Patient's initial visit) Have you changed medications since your No last visit? Any new allergies or adverse reactions No Had a fall/change in ADL's that may No increase risk of falls Signs or symptoms of abuse and/or No neglect since last visit Have you been in the hospital since your No last visit? Has dressing in place as prescribed Yes Has compression in place as prescribed N/A Has offloadiing in place as prescribed N/A Experienced any changes in pain level or No management Left Footwear Regular Shoe Right Footwear Regular Shoe Pain Scale: 0-10 Numeric Is Patient Pain Free? Yes - Nurse 1 - General Ulcer Measurement Start: 09/03/22 10:49 Freq: Status: Active Protocol: Activity Type Activity Date Activity User E-sign Co-sign Detail Recorded Client Recorded Date Recorded By Document 09/03/22 10:49 PL [id number] 09/03/22 10:59 PL Document 09/10/22 10:13 PL [id number] 09/10/22 10:23 PL Document 09/17/22 11:35 AK [id number] 09/17/22 11:37 AK Document 09/24/22 10:47 AK [id number] 09/24/22 10:49 AK 09/03/22 09/10/22 09/17/22 10:49 10:13 11:35 Wound Center Nurse 1 #1 R Thigh -Combined with other wound No -Current Size (cm) - Length 6.0 12.0 4.2 -Current Size (cm) - Width 14.2 6.0 9.8 -Current Size (cm) - Depth 1.5 1.5 1.8 -Total Square Cm 85.20 72.00 41.16 -Date of Last Picture (Recall this field) -Photo Taken No Yes -Epithelialization Medium 34-66% Large 67-100% -Tunneling Yes No No -Tunneling Position (O'clock) 8 -Tunneling Distance (cm) 2 -Undermining/Tunneling No No No -Circular Undermining No No No -Classification - Thickness Full Thickness without Exposed Support Structure -Change in Wound Grade/Stage No -Exudate Amt Large Medium -Exudate Type Serosanguineous Serosanguineous -Wound Margin Distinct, Outline Attached -Granulation Amt Medium (34-66%) Large (67-100%) None Present (0 %) -Granulation Quality Pale Birney Birney -Slough/Fibrin Yes Yes Yes -Necrosis Amt Medium (34-66%) Small (1-33%) Medium (34-66%) -Necrotic Tissue Type Adherent Slough Adherent Slough Adherent Slough -Structure Exposed N/A -Texture (Shayla-wound Skin Appearance) No Abnormality No Abnormality, Assessed -Moisture (Shayla-wound Skin Appearance) No Abnormality No Abnormality, Assessed -Color (Shayla-wound Skin Appearance) Assessed No Abnormality, Assessed -Temperature (Shayla-wound Skin No Abnormality No Abnormality Appearance) (Pt Warm) (Pt Warm) -Tenderness on Palpation (Shayla-wound No No Skin Appearance) -Ulcer Cleansing Soap and Water Soap and Water Soap and Water -Foul Odor after Cleansing No No No -Anesthetic Used 5% Lidocaine 5% Lidocaine 4% Lidocaine Gel Gel Solution,5% Lidocaine Gel 09/24/22 10:47 Wound Center Nurse 1 #1 R Thigh -Combined with other wound No -Current Size (cm) - Length 3.5 -Current Size (cm) - Width 9 -Current Size (cm) - Depth 0.3 -Total Square Cm 31.5 -Date of Last Picture (Recall this 09/24/22 field) -Photo Taken Yes -Epithelialization -Tunneling No -Tunneling Position (O'clock) -Tunneling Distance (cm) -Undermining/Tunneling No -Circular Undermining No -Classification - Thickness -Change in Wound Grade/Stage No -Exudate Amt Large -Exudate Type Serosanguineous -Wound Margin Distinct, Outline Attached -Granulation Amt Large (67-100%) -Granulation Quality Red -Slough/Fibrin No -Necrosis Amt None Present (0 %) -Necrotic Tissue Type -Structure Exposed N/A -Texture (Shayla-wound Skin Appearance) Assessed, Scarring -Moisture (Shayla-wound Skin Appearance) No Abnormality, Assessed -Color (Shayla-wound Skin Appearance) No Abnormality, Assessed -Temperature (Shayla-wound Skin No Abnormality Appearance) (Pt Warm) -Tenderness on Palpation (Shayla-wound No Skin Appearance) -Ulcer Cleansing Soap and Water -Foul Odor after Cleansing No -Anesthetic Used 4% Lidocaine Solution WC - Nurse 2 - General Ulcer CM Notes Start: 09/03/22 10:49 Freq: Status: Active Protocol: Activity Type Activity Date Activity User E-sign Co-sign Detail Recorded Client Recorded Date Recorded By Document 09/03/22 11:12 [id number] 09/03/22 11:21 Document 09/10/22 10:30 [id number] 09/10/22 10:33 Document 09/17/22 10:48 [id number] 09/17/22 10:50 Document 09/24/22 11:02 [id number] 09/24/22 11:05 09/03/22 09/10/22 09/17/22 11:12 10:30 10:48 Wound Center Nurse 2 #1 R Thigh -Time 11:15 10:30 10:48 -Correct Patient Yes Yes Yes -Correct Side, Site, Position Yes Yes Yes -Correct Procedure Yes Yes Yes -Procedure Performed Yes Yes Yes -Type of Procedure Debridement Debridement Debridement -Clinical Debridement Subcutaneous Subcutaneous Subcutaneous -Tissue Removed Subcutaneous Subcutaneous Subcutaneous -Post Debridement (cm) - Length 7.0 5.8 4.5 -Post Debridement (cm) - Width 15.0 13.0 10.2 -Post Debridement (cm) - Depth 2.0 1.7 1.4 -Total Square (Post) (cm) 105.00 75.40 45.90 -Area of Debridement (cm) - Length 7.0 5.8 4.5 -Area of Debridement (cm) - Width 15.0 13.0 10.2 -Total Square (Area) (cm) 105.00 75.40 45.90 -Tunneling No No No -Undermining/Tunneling No No No -Circular Undermining No No No -Wound/Ulcer Outcome Not Healed Not Healed Not Healed -Ulcer Cleansing Rinsed/ Rinsed/ Rinsed/ Irrigated with Irrigated with Irrigated with Saline Saline Saline -Foul Odor after Cleansing No No No -Bioengineered Tissue No No No -Bleeding Controlled with Pressure Pressure Pressure -Treatment Response Procedure Procedure Procedure Tolerated Well Tolerated Well Tolerated Well -Offloading No No No -Debridement - Subq, 1st 20sq cm Yes Yes Yes -Debridement, SubQ, ea addt'l 20sq cm 5 3 2 or part thereof Pain Scale: 0-10 Numeric Is Patient Pain Free? Yes Yes Yes 09/24/22 11:02 Wound Center Nurse 2 #1 R Thigh -Time 11:02 -Correct Patient Yes -Correct Side, Site, Position Yes -Correct Procedure Yes -Procedure Performed Yes -Type of Procedure Debridement -Clinical Debridement Subcutaneous -Tissue Removed Subcutaneous -Post Debridement (cm) - Length 4.0 -Post Debridement (cm) - Width 9.5 -Post Debridement (cm) - Depth 0.7 -Total Square (Post) (cm) 38.00 -Area of Debridement (cm) - Length 4.0 -Area of Debridement (cm) - Width 9.5 -Total Square (Area) (cm) 38.00 -Tunneling No -Undermining/Tunneling No -Circular Undermining No -Wound/Ulcer Outcome Not Healed -Ulcer Cleansing Rinsed/ Irrigated with Saline -Foul Odor after Cleansing No -Bioengineered Tissue No -Bleeding Controlled with Pressure -Treatment Response Procedure Tolerated Well -Offloading No -Debridement - Subq, 1st 20sq cm Yes -Debridement, SubQ, ea addt'l 20sq cm 1 or part thereof Pain Scale: 0-10 Numeric Is Patient Pain Free? Yes - Nurse 3 - General Ulcer D/C NN Start: 09/03/22 10:49 Freq: Status: Active Protocol: Activity Type Activity Date Activity User E-sign Co-sign Detail Recorded Client Recorded Date Recorded By Document 09/03/22 11:48 PL [id number] 09/03/22 11:48 PL Document 09/10/22 11:00 PL [id number] 09/10/22 11:01 PL Document 09/17/22 11:15 DL [id number] 09/17/22 11:17 DL 09/03/22 09/10/22 09/17/22 11:48 11:00 11:15 Wound Care Center Nurse 3 #1 R Thigh -Ulcer Cleansing Rinsed/ Rinsed/ Rinsed/ Irrigated with Irrigated with Irrigated with Saline Saline Saline -Foul Odor after Cleansing No No No -Negative Pressure Wound Therapy Continue Continue Continue -Setting (mmHg) 150 150 150 -Negative Pressure is Continuous Continuous Continuous -NPWT Application Charge NPWT & NPWT & NPWT & Debridement (nc Debridement (nc Debridement (nc ) ) ) Right -Compression Wrap Alex Wrap Treatment Response Procedure Tolerated Well Pain Scale: 0-10 Numeric Is Patient Pain Free? Yes Yes Yes WC - Visit Discharge Discharge Condition Stable Stable Stable Ambulatory Status Ambulatory Ambulatory Ambulatory Transportation Private Auto Private Auto Private Auto Facility Type Home Health Orders Sent Yes Assessment/Plan Assessment/Plan (1) Open wound of right thigh: CODE(S): S71.101A - Unspecified open wound, right thigh, initial encounter (2) Other acute postprocedural pain: CODE(S): G89.18 - Other acute postprocedural pain (3) Cellulitis of right thigh: CODE(S): L03.115 - Cellulitis of right lower limb (4) Abscess of right thigh: CODE(S): L02.415 - Cutaneous abscess of right lower limb (5) Diabetes mellitus, type II: CODE(S): E11.9 - Type 2 diabetes mellitus without complications QUALIFIERS: Diabetes mellitus longshore equipment operator insulin use: without longshore equipment operator use Diabetes mellitus complication status: with other specified complication Qualified Code(s): E11.69 - Type 2 diabetes mellitus with other specified complication (6) Controlled type 2 diabetes mellitus with hyperglycemia: CODE(S): E11.65 - Type 2 diabetes mellitus with hyperglycemia PLAN: Plan Patient evaluated at the wound healing center. Wound care - Will take a Wound VAC holiday this week with how much improvement she has had in the overall size and depth this past week and because she is experiencing some excoriation of her shayla wound. Wash the wound and the shayla wound with soap and water at the time of the dressing change and apply Aquacel-Ag covered by an ABD daily. ALEX wrap for compression. She has home health to assist with her wound VAC dressing changes. Completed Doxycycline for positive operative cultures. The Gabapentin makes her tired. Suggested just taking 100 mg at night to see if that helps with the burning nerve pain. Follow up one week.
[2022-10-01 11:47] VITALS: BP 134/73; PULSE 75; RESP 18; TEMP 36.6
--- NOTE | 2022-10-01 12:41 | PCM.WC.PN ---
History of Present Illness Date of Service: 10/01/22 Chief Complaint: Right medial thigh wound History of Wound: 66-year-old female with a history of diabetes mellitus was admitted with a diabetic abscess right medial thigh due to increasing redness, and pain, and swelling. She initially came to the ED on 08/15/22. An ultrasound was done which showed no DVT. She was discharged home. She returned to the ED the next day with a fever. Her WBC was 15.4. She was given a dose of Unasyn and discharged on Keflex. She returned to the ED the next day with continued fever. WBC increased to 17. She was given another dose of Unasyn and admitted. Her antibiotics were later changed to Vancomycin and Zosyn. The redness has improved but is persistent in the right medial thigh. Ultrasound was done which showed hypoechoic subcutaneous collection in area of clinical concern measures 15 x 8 x 4 mm. Subcutaneous soft tissue edema. Multiple lymph nodes, largest measures up to 4.3 cm in long axis. Probable small subcutaneous fluid collection, seroma versus abscess in the area of clinical concern. Surgery 08/20/22 - Surgical preparation right medial thigh with incision and drainage and excisional debridement diabetic abscess (150 cm2). Operative cultures positive for Staphylococcus aureus and she was treated with Doxycycline. Today she denies fever, chills, nausea or vomiting. Progress of Wound: Right medial thigh ulcer beefy pink, it is much smaller in size and depth. The shayla wound has improved this week with the wound VAC being off. Will plan on discontinuing the wound VAC. Objective Data Objective Data Vital Signs: Vital Signs Temp Pulse Resp BP 97.8 F 75 18 134/73 H 10/01/22 11:47 10/01/22 11:47 10/01/22 11:47 10/01/22 11:47 Charges/Coding Procedures Integumentary [id number]: [id number] Global Visit Debridement Note Debridement Note Wound debrided: medial thigh wound Laterality: Right Type of Debridement: Excisional debridement Anesthesia Used: 5% Lidocaine Gel Depth: Down to and including healthy tissue and in the subcutaneous layer Percentage of wound debrided: 100 Instrument Used: 5mm curette Tissue Removed: Devitalized tissue and slough Severity: Fat Layer Exposed Amount of bleeding with debridement: Mild Bleeding Controlled with: Pressure and Compression and gauze Patient tolerated procedure: Patient tolerated procedure well Post-Debridement Measurements and Additional Note: Post-Debridement Measurements/Treatment WC - Nurse 1 - General Ulcer Assessment Start: 09/03/22 10:49 Freq: Status: Active Protocol: VLADIMIR Activity Type Activity Date Activity User E-sign Co-sign Detail Recorded Client Recorded Date Recorded By Document 09/03/22 10:49 PL [id number] 09/03/22 10:59 PL Document 09/10/22 10:13 PL [id number] 09/10/22 10:23 PL Document 09/17/22 11:35 AK [id number] 09/17/22 11:37 AK Document 09/24/22 10:47 AK [id number] 09/24/22 10:49 AK Document 10/01/22 11:47 DL [id number] 10/01/22 11:52 DL 09/03/22 09/10/22 09/17/22 10:49 10:13 11:35 WC - Today's Visit Information Type of service Follow-up Visit Follow-up Visit Follow-up Visit (Physician/LASTING FLOORWORKER (Physician/LASTING FLOORWORKER (Physician/LASTING FLOORWORKER ) ) ) Arrival Mode Ambulatory Ambulatory Ambulatory Transfer Assistance None None Patient Identification Verified (Name & Yes Yes Yes ) Patient Requires Transmission-Based No No No Precautions Safety Precautions NA NA Vital Signs Temperature (97.8 F-99.1 F) 97.2 F L 97.6 F L 98.3 F Temperature Source Temporal Temporal Temporal Pulse Rate (60-100) 88 81 79 Pulse Location Monitor Respiratory Rate (12-18) 18 18 Blood Pressure (90/60-120/80) 126/80 H 124/78 H 128/68 H Blood Pressure Mean (mm Hg) 95 93 88 Source Monitor History Since Last Visit- (Skip if this is Patient's initial visit) Have you changed medications since your No No No last visit? Any new allergies or adverse reactions No No No Had a fall/change in ADL's that may No No increase risk of falls Signs or symptoms of abuse and/or No No No neglect since last visit Have you been in the hospital since your No No No last visit? Has dressing in place as prescribed Yes Yes Yes Has compression in place as prescribed N/A N/A N/A Has offloadiing in place as prescribed N/A N/A N/A Experienced any changes in pain level or No No No management Left Footwear Regular Shoe Right Footwear Regular Shoe Pain Scale: 0-10 Numeric Is Patient Pain Free? Yes Yes No 09/24/22 10/01/22 10:47 11:47 WC - Today's Visit Information Type of service Follow-up Visit Follow-up Visit (Physician/LASTING FLOORWORKER (Physician/LASTING FLOORWORKER ) ) Arrival Mode Ambulatory Ambulatory Transfer Assistance None Patient Identification Verified (Name & Yes Yes ) Patient Requires Transmission-Based No No Precautions Safety Precautions NA Vital Signs Temperature (97.8 F-99.1 F) 97.7 F L 97.8 F Temperature Source Temporal Temporal Pulse Rate (60-100) 75 75 Pulse Location Monitor Monitor Respiratory Rate (12-18) 18 Blood Pressure (90/60-120/80) 123/71 H 134/73 H Blood Pressure Mean (mm Hg) 88 93 Source Monitor Monitor History Since Last Visit- (Skip if this is Patient's initial visit) Have you changed medications since your No No last visit? Any new allergies or adverse reactions No No Had a fall/change in ADL's that may No No increase risk of falls Signs or symptoms of abuse and/or No No neglect since last visit Have you been in the hospital since your No No last visit? Has dressing in place as prescribed Yes Yes Has compression in place as prescribed N/A Yes Has offloadiing in place as prescribed N/A N/A Experienced any changes in pain level or No No management Left Footwear Regular Shoe Right Footwear Regular Shoe Pain Scale: 0-10 Numeric Is Patient Pain Free? Yes Yes - Nurse 1 - General Ulcer Measurement Start: 09/03/22 10:49 Freq: Status: Active Protocol: Activity Type Activity Date Activity User E-sign Co-sign Detail Recorded Client Recorded Date Recorded By Document 09/03/22 10:49 PL [id number] 09/03/22 10:59 PL Document 09/10/22 10:13 PL [id number] 09/10/22 10:23 PL Document 09/17/22 11:35 AK [id number] 09/17/22 11:37 AK Document 09/24/22 10:47 AK [id number] 09/24/22 10:49 AK Document 10/01/22 11:47 DL [id number] 10/01/22 11:52 DL 09/03/22 09/10/22 09/17/22 10:49 10:13 11:35 Wound Center Nurse 1 #1 R Thigh -Combined with other wound No -Current Size (cm) - Length 6.0 12.0 4.2 -Current Size (cm) - Width 14.2 6.0 9.8 -Current Size (cm) - Depth 1.5 1.5 1.8 -Total Square Cm 85.20 72.00 41.16 -Date of Last Picture (Recall this field) -Photo Taken No Yes -Epithelialization Medium 34-66% Large 67-100% -Tunneling Yes No No -Tunneling Position (O'clock) 8 -Tunneling Distance (cm) 2 -Undermining/Tunneling No No No -Circular Undermining No No No -Classification - Thickness Full Thickness without Exposed Support Structure -Change in Wound Grade/Stage No -Exudate Amt Large Medium -Exudate Type Serosanguineous Serosanguineous -Wound Margin Distinct, Outline Attached -Granulation Amt Medium (34-66%) Large (67-100%) None Present (0 %) -Granulation Quality Pale [place] -Slough/Fibrin Yes Yes Yes -Necrosis Amt Medium (34-66%) Small (1-33%) Medium (34-66%) -Necrotic Tissue Type Adherent Slough Adherent Slough Adherent Slough -Structure Exposed N/A -Texture (Shayla-wound Skin Appearance) No Abnormality No Abnormality, Assessed -Moisture (Shayla-wound Skin Appearance) No Abnormality No Abnormality, Assessed -Color (Shayla-wound Skin Appearance) Assessed No Abnormality, Assessed -Temperature (Shayla-wound Skin No Abnormality No Abnormality Appearance) (Pt Warm) (Pt Warm) -Tenderness on Palpation (Shayla-wound No No Skin Appearance) -Ulcer Cleansing Soap and Water Soap and Water Soap and Water -Foul Odor after Cleansing No No No -Anesthetic Used 5% Lidocaine 5% Lidocaine 4% Lidocaine Gel Gel Solution,5% Lidocaine Gel 09/24/22 10/01/22 10:47 11:47 Wound Center Nurse 1 #1 R Thigh -Combined with other wound No -Current Size (cm) - Length 3.5 7.1 -Current Size (cm) - Width 9 2.5 -Current Size (cm) - Depth 0.3 0.1 -Total Square Cm 31.5 17.75 -Date of Last Picture (Recall this 09/24/22 field) -Photo Taken Yes Yes -Epithelialization -Tunneling No -Tunneling Position (O'clock) -Tunneling Distance (cm) -Undermining/Tunneling No -Circular Undermining No -Classification - Thickness -Change in Wound Grade/Stage No -Exudate Amt Large Medium -Exudate Type Serosanguineous Serosanguineous -Wound Margin Distinct, Distinct, Outline Outline Attached Attached -Granulation Amt Large (67-100%) Large (67-100%) -Granulation Quality Red Red -Slough/Fibrin No -Necrosis Amt None Present (0 None Present (0 %) %) -Necrotic Tissue Type -Structure Exposed N/A N/A -Texture (Shayla-wound Skin Appearance) Assessed, Scarring Scarring -Moisture (Shayla-wound Skin Appearance) No Abnormality, No Abnormality Assessed -Color (Shayla-wound Skin Appearance) No Abnormality, No Abnormality Assessed -Temperature (Shayla-wound Skin No Abnormality No Abnormality Appearance) (Pt Warm) (Pt Warm) -Tenderness on Palpation (Shayla-wound No No Skin Appearance) -Ulcer Cleansing Soap and Water Soap and Water -Foul Odor after Cleansing No No -Anesthetic Used 4% Lidocaine 5% Lidocaine Solution Gel WC - Nurse 2 - General Ulcer CM Notes Start: 09/03/22 10:49 Freq: Status: Active Protocol: Activity Type Activity Date Activity User E-sign Co-sign Detail Recorded Client Recorded Date Recorded By Document 09/03/22 11:12 [id number] 09/03/22 11:21 Document 09/10/22 10:30 [id number] 09/10/22 10:33 Document 09/17/22 10:48 [id number] 09/17/22 10:50 Document 09/24/22 11:02 [id number] 09/24/22 11:05 Document 10/01/22 12:13 [id number] 10/01/22 12:14 09/03/22 09/10/22 09/17/22 11:12 10:30 10:48 Wound Center Nurse 2 #1 R Thigh -Time 11:15 10:30 10:48 -Correct Patient Yes Yes Yes -Correct Side, Site, Position Yes Yes Yes -Correct Procedure Yes Yes Yes -Procedure Performed Yes Yes Yes -Type of Procedure Debridement Debridement Debridement -Clinical Debridement Subcutaneous Subcutaneous Subcutaneous -Tissue Removed Subcutaneous Subcutaneous Subcutaneous -Post Debridement (cm) - Length 7.0 5.8 4.5 -Post Debridement (cm) - Width 15.0 13.0 10.2 -Post Debridement (cm) - Depth 2.0 1.7 1.4 -Total Square (Post) (cm) 105.00 75.40 45.90 -Area of Debridement (cm) - Length 7.0 5.8 4.5 -Area of Debridement (cm) - Width 15.0 13.0 10.2 -Total Square (Area) (cm) 105.00 75.40 45.90 -Tunneling No No No -Undermining/Tunneling No No No -Circular Undermining No No No -Wound/Ulcer Outcome Not Healed Not Healed Not Healed -Ulcer Cleansing Rinsed/ Rinsed/ Rinsed/ Irrigated with Irrigated with Irrigated with Saline Saline Saline -Foul Odor after Cleansing No No No -Bioengineered Tissue No No No -Bleeding Controlled with Pressure Pressure Pressure -Treatment Response Procedure Procedure Procedure Tolerated Well Tolerated Well Tolerated Well -Offloading No No No -Debridement - Subq, 1st 20sq cm Yes Yes Yes -Debridement, SubQ, ea addt'l 20sq cm 5 3 2 or part thereof Pain Scale: 0-10 Numeric Is Patient Pain Free? Yes Yes Yes 09/24/22 10/01/22 11:02 12:13 Wound Center Nurse 2 #1 R Thigh -Time 11:02 12:13 -Correct Patient Yes Yes -Correct Side, Site, Position Yes Yes -Correct Procedure Yes Yes -Procedure Performed Yes Yes -Type of Procedure Debridement Debridement -Clinical Debridement Subcutaneous Subcutaneous -Tissue Removed Subcutaneous Subcutaneous -Post Debridement (cm) - Length 4.0 3.0 -Post Debridement (cm) - Width 9.5 8.0 -Post Debridement (cm) - Depth 0.7 0.2 -Total Square (Post) (cm) 38.00 24.00 -Area of Debridement (cm) - Length 4.0 3.0 -Area of Debridement (cm) - Width 9.5 8.0 -Total Square (Area) (cm) 38.00 24.00 -Tunneling No No -Undermining/Tunneling No No -Circular Undermining No No -Wound/Ulcer Outcome Not Healed Not Healed -Ulcer Cleansing Rinsed/ Rinsed/ Irrigated with Irrigated with Saline Saline -Foul Odor after Cleansing No No -Bioengineered Tissue No No -Bleeding Controlled with Pressure Pressure -Treatment Response Procedure Procedure Tolerated Well Tolerated Well -Offloading No No -Debridement - Subq, 1st 20sq cm Yes Yes -Debridement, SubQ, ea addt'l 20sq cm 1 1 or part thereof Pain Scale: 0-10 Numeric Is Patient Pain Free? Yes Yes - Nurse 3 - General Ulcer D/C NN Start: 09/03/22 10:49 Freq: Status: Active Protocol: Activity Type Activity Date Activity User E-sign Co-sign Detail Recorded Client Recorded Date Recorded By Document 09/03/22 11:48 PL [id number] 09/03/22 11:48 PL Document 09/10/22 11:00 PL [id number] 09/10/22 11:01 PL Document 09/17/22 11:15 DL [id number] 09/17/22 11:17 DL Document 09/24/22 11:18 DL [id number] 09/24/22 11:19 DL Document 10/01/22 12:24 DL [id number] 10/01/22 12:24 DL 09/03/22 09/10/22 09/17/22 11:48 11:00 11:15 Wound Care Center Nurse 3 #1 R Thigh -Ulcer Cleansing Rinsed/ Rinsed/ Rinsed/ Irrigated with Irrigated with Irrigated with Saline Saline Saline -Foul Odor after Cleansing No No No -Negative Pressure Wound Therapy Continue Continue Continue -Setting (mmHg) 150 150 150 -Negative Pressure is Continuous Continuous Continuous -Primary Dressing Applied -Primary Dressing Covered/Secured with -NPWT Application Charge NPWT & NPWT & NPWT & Debridement (nc Debridement (nc Debridement (nc ) ) ) -Aquacel AG 4x4 Right -Compression Wrap Alex Wrap Treatment Response Procedure Tolerated Well Pain Scale: 0-10 Numeric Is Patient Pain Free? Yes Yes Yes - Visit Discharge Discharge Condition Stable Stable Stable Ambulatory Status Ambulatory Ambulatory Ambulatory Transportation Private Auto Private Auto Private Auto Facility Type Home Health Orders Sent Yes 09/24/22 10/01/22 11:18 12:24 Wound Care Center Nurse 3 #1 R Thigh -Ulcer Cleansing Rinsed/ Rinsed/ Irrigated with Irrigated with Saline Saline -Foul Odor after Cleansing No No -Negative Pressure Wound Therapy -Setting (mmHg) -Negative Pressure is -Primary Dressing Applied Aquacel AG 4x4 Aquacel AG 4x4 -Primary Dressing Covered/Secured with Dry Gauze, Dry Gauze, Secured with Secured with Tape Tape -NPWT Application Charge -Aquacel AG 4x4 1 1 Right -Compression Wrap Treatment Response Procedure Procedure Tolerated Well Tolerated Well Pain Scale: 0-10 Numeric Is Patient Pain Free? Yes Yes WC - Visit Discharge Discharge Condition Stable Stable Ambulatory Status Ambulatory Ambulatory Transportation Private Auto Private Auto Facility Type Home Health Orders Sent Yes Assessment/Plan Assessment/Plan (1) Chronic ulcer of thigh with fat layer exposed: CODE(S): L97.102 - Non-pressure chronic ulcer of unspecified thigh with fat layer exposed (2) Other acute postprocedural pain: CODE(S): G89.18 - Other acute postprocedural pain (3) Cellulitis of right thigh: CODE(S): L03.115 - Cellulitis of right lower limb (4) Abscess of right thigh: CODE(S): L02.415 - Cutaneous abscess of right lower limb (5) Diabetes mellitus, type II: CODE(S): E11.9 - Type 2 diabetes mellitus without complications QUALIFIERS: Diabetes mellitus fdc insulin use: without fdc use Diabetes mellitus complication status: with other specified complication Qualified Code(s): E11.69 - Type 2 diabetes mellitus with other specified complication (6) Controlled type 2 diabetes mellitus with hyperglycemia: CODE(S): E11.65 - Type 2 diabetes mellitus with hyperglycemia PLAN: Plan Patient evaluated at the wound healing center. Wound care - Will discontinue Wound VAC. Aquacel-Ag covered with gauze/ABD daily and as needed. Wash the wound and the shayla wound with soap and water at the time of the dressing change. ALEX wrap for compression. She has home health to assist with her wound VAC dressing changes. Completed Doxycycline for positive operative cultures. The Gabapentin makes her tired. Suggested just taking 100 mg at night to see if that helps with the burning nerve pain. Follow up one week.
== END 2022-10-01 23:59 | disposition home or self-care (01) ==
LOC: WC 11:15
PROVIDERS: PCP Internal Medicine; Referring Provider Nurse Practitioner Family; Visit Provider Nurse Practitioner Family
DX: L03.115 Cellulitis of right lower limb (principal); L97.112 Non-pressure chronic ulcer of right thigh with fat layer exposed; E11.65 Type 2 diabetes mellitus with hyperglycemia; M79.651 Pain in right thigh; L02.415 Cutaneous abscess of right lower limb; M79.89 Other specified soft tissue disorders; Z79.890 Hormone replacement therapy; G89.18 Other acute postprocedural pain
CPT/HCPCS: 11042; 11045

== ENCOUNTER 2022-10-22 11:00 | Outpatient (RCR) | payer MEDICARE, SELFPAY ==
[2022-10-02 00:40] VITALS: BP 134/73; PULSE 75; RESP 18; TEMP 36.6
[2022-10-08 10:59] VITALS: BP 135/74; PULSE 101; RESP 20; TEMP 36
--- NOTE | 2022-10-08 12:24 | PCM.WC.PN ---
History of Present Illness Date of Service: 10/08/22 Chief Complaint: Right medial thigh wound History of Wound: 66-year-old female with a history of diabetes mellitus was admitted with a diabetic abscess right medial thigh due to increasing redness, and pain, and swelling. She initially came to the ED on 08/15/22. An ultrasound was done which showed no DVT. She was discharged home. She returned to the ED the next day with a fever. Her WBC was 15.4. She was given a dose of Unasyn and discharged on Keflex. She returned to the ED the next day with continued fever. WBC increased to 17. She was given another dose of Unasyn and admitted. Her antibiotics were later changed to Vancomycin and Zosyn. The redness has improved but is persistent in the right medial thigh. Ultrasound was done which showed hypoechoic subcutaneous collection in area of clinical concern measures 15 x 8 x 4 mm. Subcutaneous soft tissue edema. Multiple lymph nodes, largest measures up to 4.3 cm in long axis. Probable small subcutaneous fluid collection, seroma versus abscess in the area of clinical concern. Surgery 08/20/22 - Surgical preparation right medial thigh with incision and drainage and excisional debridement diabetic abscess (150 cm2). Operative cultures positive for Staphylococcus aureus and she was treated with Doxycycline. Today she denies fever, chills, nausea or vomiting. Progress of Wound: Right medial thigh ulcer beefy pink, it is much smaller in size and depth. Wound bed is beefy pink with hypergranulation tissue present. Objective Data Objective Data Vital Signs: Vital Signs Temp Pulse Resp BP 96.8 F L 101 H 20 H 135/74 H 10/08/22 10:59 10/08/22 10:59 10/08/22 10:59 10/08/22 10:59 Charges/Coding Procedures Integumentary 111xxx-113xx: [id number] Global Visit Debridement Note Debridement Note Wound debrided: medial thigh wound Laterality: Right Type of Debridement: Excisional debridement Anesthesia Used: 5% Lidocaine Gel Depth: Down to and including healthy tissue and in the subcutaneous layer Percentage of wound debrided: 100 Instrument Used: 5mm curette Tissue Removed: Devitalized tissue and slough Severity: Fat Layer Exposed Amount of bleeding with debridement: Mild Bleeding Controlled with: Pressure, Compression and gauze and Silver Nitrate (used because of her hypergranulation tissue that is present) Patient tolerated procedure: Patient tolerated procedure well Post-Debridement Measurements and Additional Note: Post-Debridement Measurements/Treatment WILLIS - Nurse 1 - General Ulcer Assessment Start: 10/08/22 10:59 Freq: Status: Active Protocol: VLADIMIR Activity Type Activity Date Activity User E-sign Co-sign Detail Recorded Client Recorded Date Recorded By Document 10/08/22 10:59 DL [id number] 10/08/22 11:04 DL 10/08/22 10:59 WC - Today's Visit Information Type of service 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 Any new allergies or adverse reactions No Had a fall/change in ADL's that may No increase risk of falls Signs or symptoms of abuse and/or No neglect since last visit Have you been in the hospital since your No last visit? Has dressing in place as prescribed Yes Has compression in place as prescribed N/A Has offloadiing in place as prescribed N/A Experienced any changes in pain level or No management Pain Scale: 0-10 Numeric Is Patient Pain Free? Yes - Nurse 1 - General Ulcer Measurement Start: 10/08/22 10:59 Freq: Status: Active Protocol: Activity Type Activity Date Activity User E-sign Co-sign Detail Recorded Client Recorded Date Recorded By Document 10/08/22 10:59 DL [id number] 10/08/22 11:04 DL 10/08/22 10:59 Wound Center Nurse 1 #1 R Thigh -Current Size (cm) - Length 2.3 -Current Size (cm) - Width 6.5 -Current Size (cm) - Depth 0.1 -Total Square Cm 14.95 -Exudate Amt Small -Exudate Type Serosanguineous -Wound Margin Distinct, Outline Attached -Granulation Amt Large (67-100%) -Granulation Quality Hyper- granulation,Red -Necrosis Amt None Present (0 %) -Structure Exposed N/A -Texture (Shayla-wound Skin Appearance) Scarring -Moisture (Shayla-wound Skin Appearance) No Abnormality -Color (Shayla-wound Skin Appearance) No Abnormality -Temperature (Shayla-wound Skin No Abnormality Appearance) (Pt Warm) -Tenderness on Palpation (Shayla-wound No Skin Appearance) -Ulcer Cleansing Rinsed/ Irrigated with Saline -Foul Odor after Cleansing No -Anesthetic Used 5% Lidocaine Gel - Nurse 2 - General Ulcer CM Notes Start: 10/08/22 10:59 Freq: Status: Active Protocol: Activity Type Activity Date Activity User E-sign Co-sign Detail Recorded Client Recorded Date Recorded By Document 10/08/22 11:53 [id number] 10/08/22 11:55 10/08/22 11:53 Wound Center Nurse 2 -Time 11:53 -Correct Patient Yes -Correct Side, Site, Position Yes -Correct Procedure Yes -Procedure Performed Yes -Type of Procedure Debridement -Clinical Debridement Subcutaneous -Tissue Removed Subcutaneous -Post Debridement (cm) - Length 2.0 -Post Debridement (cm) - Width 6.5 -Post Debridement (cm) - Depth 0.1 -Total Square (Post) (cm) 13.00 -Area of Debridement (cm) - Length 2.0 -Area of Debridement (cm) - Width 6.5 -Total Square (Area) (cm) 13.00 -Tunneling No -Undermining/Tunneling No -Circular Undermining No -Wound/Ulcer Outcome Not Healed -Ulcer Cleansing Rinsed/ Irrigated with Saline -Foul Odor after Cleansing No -Bioengineered Tissue No -Bleeding Controlled with Pressure -Treatment Response Procedure Tolerated Well -Offloading No -Debridement - Subq, 1st 20sq cm Yes Pain Scale: 0-10 Numeric Is Patient Pain Free? 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 Yes WC - Visit Discharge Discharge Condition Stable Ambulatory Status Ambulatory Transportation Private Auto Assessment/Plan Assessment/Plan (1) Chronic ulcer of thigh with fat layer exposed: CODE(S): L97.102 - Non-pressure chronic ulcer of unspecified thigh with fat layer exposed (2) Other acute postprocedural pain: CODE(S): G89.18 - Other acute postprocedural pain (3) Cellulitis of right thigh: CODE(S): L03.115 - Cellulitis of right lower limb (4) Abscess of right thigh: CODE(S): L02.415 - Cutaneous abscess of right lower limb (5) Diabetes mellitus, type II: CODE(S): E11.9 - Type 2 diabetes mellitus without complications QUALIFIERS: Diabetes mellitus fdc insulin use: without ocean transportation intermediary use Diabetes mellitus complication status: with other specified complication Qualified Code(s): E11.69 - Type 2 diabetes mellitus with other specified complication (6) Controlled type 2 diabetes mellitus with hyperglycemia: CODE(S): E11.65 - Type 2 diabetes mellitus with hyperglycemia PLAN: Plan Patient evaluated at the wound healing center. Wound care - Aquacel-Ag covered with gauze/ABD daily and as needed. Wash the wound and the shayla wound with soap and water at the time of the dressing change. MARIBEL wrap for compression. She has home health to assist with her wound VAC dressing changes. Completed Doxycycline for positive operative cultures. The Gabapentin makes her tired. Suggested just taking 100 mg at night to see if that helps with the burning nerve pain. Follow up one week.
[2022-10-15 11:22] VITALS: BP 139/71; PULSE 100; RESP 18; TEMP 36.6
--- NOTE | 2022-10-15 12:41 | PN.PCM_ITS ---
History of Present Illness Date of Service: 10/15/22 Chief Complaint: Right medial thigh wound History of Wound: 66-year-old female with a history of diabetes mellitus was admitted with a diabetic abscess right medial thigh due to increasing redness, and pain, and swelling. She initially came to the ED on 08/15/22. An ultrasound was done which showed no DVT. She was discharged home. She returned to the ED the next day with a fever. Her WBC was 15.4. She was given a dose of Unasyn and discharged on Keflex. She returned to the ED the next day with continued fever. WBC increased to 17. She was given another dose of Unasyn and admitted. Her antibiotics were later changed to Vancomycin and Zosyn. The redness has improved but is persistent in the right medial thigh. Ultrasound was done which showed hypoechoic subcutaneous collection in area of clinical concern measures 15 x 8 x 4 mm. Subcutaneous soft tissue edema. Multiple lymph nodes, largest measures up to 4.3 cm in long axis. Probable small subcutaneous fluid collection, seroma versus abscess in the area of clinical concern. Surgery 08/20/22 - Surgical preparation right medial thigh with incision and drainage and excisional debridement diabetic abscess (150 cm2). Operative cultures positive for Staphylococcus aureus and she was treated with Doxycycline. Today she denies fever, chills, nausea or vomiting. Progress of Wound: Right medial thigh ulcer beefy pink, it is smaller in size and depth. Wound bed is beefy pink with hypergranulation tissue present. She states she is doing well with the dressing changes. Objective Data Objective Data Vital Signs: Vital Signs Temp Pulse Resp BP 97.8 F 100 18 139/71 H 10/15/22 11:22 10/15/22 11:22 10/15/22 11:22 10/15/22 11:22 Charges/Coding Procedures Integumentary [id number]: [id number] Global Visit Debridement Note Debridement Note Wound debrided: medial thigh wound Laterality: Right Type of Debridement: Excisional debridement Anesthesia Used: 5% Lidocaine Gel Depth: Down to and including healthy tissue and in the subcutaneous layer Percentage of wound debrided: 100 Instrument Used: 5mm curette Tissue Removed: Devitalized tissue and slough Severity: Fat Layer Exposed Amount of bleeding with debridement: Mild Bleeding Controlled with: Pressure, Compression and gauze and Silver Nitrate (used because of her hypergranulation tissue that is present) Patient tolerated procedure: Patient tolerated procedure well Post-Debridement Measurements and Additional Note: Post-Debridement Measurements/Treatment WC - Nurse 1 - General Ulcer Assessment Start: 10/08/22 10:59 Freq: Status: Active Protocol: VLADIMIR Activity Type Activity Date Activity User E-sign Co-sign Detail Recorded Client Recorded Date Recorded By Document 10/08/22 10:59 DL [id number] 10/08/22 11:04 DL Document 10/15/22 11:22 PL [id number] 10/15/22 11:26 PL 10/08/22 10/15/22 10:59 11:22 WC - Today's Visit Information Type of service Follow-up Visit Follow-up Visit (Physician/APPAREL TRIMMINGS SALES REPRESENTATIVE (Physician/[employer]PAREL TRIMMINGS SALES REPRESENTATIVE ) ) Arrival Mode Ambulatory Ambulatory Transfer Assistance None None Patient Identification Verified (Name & Yes Yes ) Patient Requires Transmission-Based No No Precautions Safety Precautions NA Vital Signs Temperature (97.8 F-99.1 F) 96.8 F L 97.8 F Temperature Source Temporal Temporal Pulse Rate (60-100) 101 H 100 Pulse Location Monitor Respiratory Rate (12-18) 20 H 18 Respiratory rate source Observation Blood Pressure (90/60-120/80) 135/74 H 139/71 H Blood Pressure Mean (mm Hg) 94 93 Source Monitor History Since Last Visit- (Skip if this is Patient's initial visit) Have you changed medications since your No last visit? Any new allergies or adverse reactions No No Had a fall/change in ADL's that may No increase risk of falls Signs or symptoms of abuse and/or No No neglect since last visit Have you been in the hospital since your No No last visit? Has dressing in place as prescribed Yes Yes Has compression in place as prescribed N/A N/A Has offloadiing in place as prescribed N/A N/A Experienced any changes in pain level or No No management Pain Scale: 0-10 Numeric Is Patient Pain Free? Yes Yes WILLIS - Nurse 1 - General Ulcer Measurement Start: 10/08/22 10:59 Freq: Status: Active Protocol: Activity Type Activity Date Activity User E-sign Co-sign Detail Recorded Client Recorded Date Recorded By Document 10/08/22 10:59 DL [id number] 10/08/22 11:04 DL 10/08/22 10:59 Wound Center Nurse 1 #1 R Thigh -Current Size (cm) - Length 2.3 -Current Size (cm) - Width 6.5 -Current Size (cm) - Depth 0.1 -Total Square Cm 14.95 -Exudate Amt Small -Exudate Type Serosanguineous -Wound Margin Distinct, Outline Attached -Granulation Amt Large (67-100%) -Granulation Quality Hyper- granulation,Red -Necrosis Amt None Present (0 %) -Structure Exposed N/A -Texture (Shayla-wound Skin Appearance) Scarring -Moisture (Shayla-wound Skin Appearance) No Abnormality -Color (Shayla-wound Skin Appearance) No Abnormality -Temperature (Shayla-wound Skin No Abnormality Appearance) (Pt Warm) -Tenderness on Palpation (Shayla-wound No Skin Appearance) -Ulcer Cleansing Rinsed/ Irrigated with Saline -Foul Odor after Cleansing No -Anesthetic Used 5% Lidocaine Gel WC - Nurse 2 - General Ulcer CM Notes Start: 10/08/22 10:59 Freq: Status: Active Protocol: Activity Type Activity Date Activity User E-sign Co-sign Detail Recorded Client Recorded Date Recorded By Document 10/08/22 11:53 [id number] 10/08/22 11:55 Document 10/15/22 11:54 [id number] 10/15/22 11:55 10/08/22 10/15/22 11:53 11:54 Wound Center Nurse 2 #1 R Thigh -Time 11:53 11:54 -Correct Patient Yes Yes -Correct Side, Site, Position Yes Yes -Correct Procedure Yes Yes -Procedure Performed Yes Yes -Type of Procedure Debridement Debridement -Clinical Debridement Subcutaneous Subcutaneous -Tissue Removed Subcutaneous Subcutaneous -Post Debridement (cm) - Length 2.0 1.7 -Post Debridement (cm) - Width 6.5 5.0 -Post Debridement (cm) - Depth 0.1 0.1 -Total Square (Post) (cm) 13.00 8.50 -Area of Debridement (cm) - Length 2.0 1.7 -Area of Debridement (cm) - Width 6.5 5.0 -Total Square (Area) (cm) 13.00 8.50 -Tunneling No No -Undermining/Tunneling No No -Circular Undermining No No -Wound/Ulcer Outcome Not Healed Not Healed -Ulcer Cleansing Rinsed/ Rinsed/ Irrigated with Irrigated with Saline Saline -Foul Odor after Cleansing No No -Bioengineered Tissue No No -Bleeding Controlled with Pressure Pressure -Treatment Response Procedure Procedure Tolerated Well Tolerated Well -Offloading No No -Debridement - Subq, 1st 20sq cm Yes Yes Pain Scale: 0-10 Numeric Is Patient Pain Free? Yes Yes - Nurse 3 - General Ulcer D/C NN Start: 10/08/22 10:59 Freq: Status: Active Protocol: Activity Type Activity Date Activity User E-sign Co-sign Detail Recorded Client Recorded Date Recorded By Document 10/08/22 12:02 [facility] [id number] 10/08/22 12:03 [facility] 10/08/22 12:02 Wound Care Center Nurse 3 #1 R Thigh -Ulcer Cleansing Rinsed/ Irrigated with Saline -Foul Odor after Cleansing No -Primary Dressing Applied Aquacel AG 4x4 -Other Dressing abd; drsg per dl cleaner carpet and upholstery -Primary Dressing Covered/Secured with Secured with Tape -Aquacel AG 4x4 1 Treatment Response Procedure Tolerated Well Pain Scale: 0-10 Numeric Is Patient Pain Free? 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 Wound care - Aquacel-Ag covered with gauze/ABD daily and as needed. Wash the wound and the shayla wound with soap and water at the time of the dressing change. MARIBEL wrap for compression. We will discontinue home health, patient states that she is able to change the dressing without any issues. Completed Doxycycline for positive operative cultures. Follow up one week.
[2022-10-22 11:19] VITALS: BP 151/84; PULSE 96; RESP 20; TEMP 36.8
--- NOTE | 2022-10-22 13:29 | PN.PCM_ITS ---
History of Present Illness Date of Service: 10/22/22 Chief Complaint: Right medial thigh wound History of Wound: 66-year-old female with a history of diabetes mellitus was admitted with a diabetic abscess right medial thigh due to increasing redness, and pain, and swelling. She initially came to the ED on 08/15/22. An ultrasound was done which showed no DVT. She was discharged home. She returned to the ED the next day with a fever. Her WBC was 15.4. She was given a dose of Unasyn and discharged on Keflex. She returned to the ED the next day with continued fever. WBC increased to 17. She was given another dose of Unasyn and admitted. Her antibiotics were later changed to Vancomycin and Zosyn. The redness has improved but is persistent in the right medial thigh. Ultrasound was done which showed hypoechoic subcutaneous collection in area of clinical concern measures 15 x 8 x 4 mm. Subcutaneous soft tissue edema. Multiple lymph nodes, largest measures up to 4.3 cm in long axis. Probable small subcutaneous fluid collection, seroma versus abscess in the area of clinical concern. Surgery 08/20/22 - Surgical preparation right medial thigh with incision and drainage and excisional debridement diabetic abscess (150 cm2). Operative cultures positive for Staphylococcus aureus and she was treated with Doxycycline. Today she denies fever, chills, nausea or vomiting. Progress of Wound: Right medial thigh ulcer beefy pink, it is smaller in size and depth. She states she is doing well with the dressing changes. She is very upset this week because her 's health is not doing well at this time. Objective Data Objective Data Vital Signs: Vital Signs Temp Pulse Resp BP 98.3 F 96 20 H 151/84 H 10/22/22 11:19 10/22/22 11:19 10/22/22 11:19 10/22/22 11:19 Charges/Coding Procedures Integumentary [id number]: [id number] Global Visit Debridement Note Debridement Note Wound debrided: medial thigh wound Laterality: Right Type of Debridement: Excisional debridement Anesthesia Used: 5% Lidocaine Gel Depth: Down to and including healthy tissue and in the subcutaneous layer Percentage of wound debrided: 100 Instrument Used: 5mm curette Tissue Removed: Devitalized tissue and slough Severity: Fat Layer Exposed Amount of bleeding with debridement: Mild Bleeding Controlled with: Pressure and Compression and gauze Patient tolerated procedure: Patient tolerated procedure well Post-Debridement Measurements and Additional Note: Post-Debridement Measurements/Treatment WC - Nurse 1 - General Ulcer Assessment Start: 10/08/22 10:59 Freq: Status: Active Protocol: VLADIMIR Activity Type Activity Date Activity User E-sign Co-sign Detail Recorded Client Recorded Date Recorded By Document 10/08/22 10:59 DL [id number] 10/08/22 11:04 DL Document 10/15/22 11:22 PL [id number] 10/15/22 11:26 PL Document 10/22/22 11:19 DL [id number] 10/22/22 11:23 DL 10/08/22 10/15/22 10/22/22 10:59 11:22 11:19 WC - Today's Visit Information Type of service Follow-up Visit Follow-up Visit Follow-up Visit (Physician/FAMILY PRESERVATION WORKER (Physician/FAMILY PRESERVATION WORKER (Physician/FAMILY PRESERVATION WORKER ) ) ) Arrival Mode Ambulatory Ambulatory Ambulatory Transfer Assistance None None None Patient Identification Verified (Name & Yes Yes Yes ) Patient Requires Transmission-Based No No No Precautions Safety Precautions NA Vital Signs Temperature (97.8 F-99.1 F) 96.8 F L 97.8 F 98.3 F Temperature Source Temporal Temporal Temporal Pulse Rate (60-100) 101 H 100 96 Pulse Location Monitor Monitor Respiratory Rate (12-18) 20 H 18 20 H Respiratory rate source Observation Observation Blood Pressure (90/60-120/80) 135/74 H 139/71 H 151/84 H Blood Pressure Mean (mm Hg) 94 93 106 Source Monitor Monitor History Since Last Visit- (Skip if this is Patient's initial visit) Have you changed medications since your No No last visit? Any new allergies or adverse reactions No No No Had a fall/change in ADL's that may No No increase risk of falls Signs or symptoms of abuse and/or No No No neglect since last visit Have you been in the hospital since your No No No last visit? Has dressing in place as prescribed Yes Yes Yes Has compression in place as prescribed N/A N/A N/A Has offloadiing in place as prescribed N/A N/A N/A Experienced any changes in pain level or No No No management Pain Scale: 0-10 Numeric Is Patient Pain Free? Yes Yes Yes - Nurse 1 - General Ulcer Measurement Start: 10/08/22 10:59 Freq: Status: Active Protocol: Activity Type Activity Date Activity User E-sign Co-sign Detail Recorded Client Recorded Date Recorded By Document 10/08/22 10:59 DL [id number] 10/08/22 11:04 Document 10/22/22 11:19 DL [id number] 10/22/22 11:23 DL 10/08/22 10/22/22 10:59 11:19 Wound Center Nurse 1 #1 R Thigh -Current Size (cm) - Length 2.3 0.9 -Current Size (cm) - Width 6.5 4 -Current Size (cm) - Depth 0.1 0.1 -Total Square Cm 14.95 3.6 -Exudate Amt Small Medium -Exudate Type Serosanguineous Serosanguineous -Wound Margin Distinct, Distinct, Outline Outline Attached Attached -Granulation Amt Large (67-100%) Large (67-100%) -Granulation Quality Hyper- [place] granulation,Red -Necrosis Amt None Present (0 None Present (0 %) %) -Structure Exposed N/A N/A -Texture (Darion-wound Skin Appearance) Scarring Scarring -Moisture (Darion-wound Skin Appearance) No Abnormality Dry/Scaly -Color (Darion-wound Skin Appearance) No Abnormality No Abnormality -Temperature (Darion-wound Skin No Abnormality No Abnormality Appearance) (Pt Warm) (Pt Warm) -Tenderness on Palpation (Darion-wound No No Skin Appearance) -Ulcer Cleansing Rinsed/ Rinsed/ Irrigated with Irrigated with Saline Saline -Foul Odor after Cleansing No No -Anesthetic Used 5% Lidocaine 5% Lidocaine Gel Gel - Nurse 2 - General Ulcer CM Notes Start: 10/08/22 10:59 Freq: Status: Active Protocol: Activity Type Activity Date Activity User E-sign Co-sign Detail Recorded Client Recorded Date Recorded By Document 10/08/22 11:53 [id number] 10/08/22 11:55 Document 10/15/22 11:54 [id number] 10/15/22 11:55 10/08/22 10/15/22 11:53 11:54 Wound Center Nurse 2 #1 R Thigh -Time 11:53 11:54 -Correct Patient Yes Yes -Correct Side, Site, Position Yes Yes -Correct Procedure Yes Yes -Procedure Performed Yes Yes -Type of Procedure Debridement Debridement -Clinical Debridement Subcutaneous Subcutaneous -Tissue Removed Subcutaneous Subcutaneous -Post Debridement (cm) - Length 2.0 1.7 -Post Debridement (cm) - Width 6.5 5.0 -Post Debridement (cm) - Depth 0.1 0.1 -Total Square (Post) (cm) 13.00 8.50 -Area of Debridement (cm) - Length 2.0 1.7 -Area of Debridement (cm) - Width 6.5 5.0 -Total Square (Area) (cm) 13.00 8.50 -Tunneling No No -Undermining/Tunneling No No -Circular Undermining No No -Wound/Ulcer Outcome Not Healed Not Healed -Ulcer Cleansing Rinsed/ Rinsed/ Irrigated with Irrigated with Saline Saline -Foul Odor after Cleansing No No -Bioengineered Tissue No No -Bleeding Controlled with Pressure Pressure -Treatment Response Procedure Procedure Tolerated Well Tolerated Well -Offloading No No -Debridement - Subq, 1st 20sq cm Yes Yes Pain Scale: 0-10 Numeric Is Patient Pain Free? Yes Yes WC - Nurse 3 - General Ulcer D/C NN Start: 10/08/22 10:59 Freq: Status: Active Protocol: Activity Type Activity Date Activity User E-sign Co-sign Detail Recorded Client Recorded Date Recorded By Document 10/08/22 12:02 [facility] [id number] 10/08/22 12:03 [facility] Document 10/16/22 06:58 PL [id number] 10/16/22 06:59 PL Document 10/22/22 11:47 DL [id number] 10/22/22 11:47 DL 10/08/22 10/16/22 10/22/22 12:02 06:58 11:47 Wound Care Center Nurse 3 #1 R Thigh -Ulcer Cleansing Rinsed/ Rinsed/ Rinsed/ Irrigated with Irrigated with Irrigated with Saline Saline Saline -Foul Odor after Cleansing No No No -Primary Dressing Applied Aquacel AG 4x4 Aquacel AG 4x4 Aquacel AG 2x2 -Other Dressing abd; drsg per ABD dl candy puller -Primary Dressing Covered/Secured with Secured with Secured with Dry Gauze, Tape Tape Secured with Tape -Aquacel AG 2x2 1 -Aquacel AG 4x4 1 1 Treatment Response Procedure Procedure Tolerated Well Tolerated Well Pain Scale: 0-10 Numeric Is Patient Pain Free? Yes Yes Yes WC - Visit Discharge Discharge Condition Stable Stable Stable Ambulatory Status Ambulatory Ambulatory Ambulatory Transportation Private Auto Private Auto Private Auto Assessment/Plan Assessment/Plan (1) Chronic ulcer of thigh with fat layer exposed: CODE(S): L97.102 - Non-pressure chronic ulcer of unspecified thigh with fat layer exposed QUALIFIERS: Laterality: right Qualified Code(s): L97.112 - Non- pressure chronic ulcer of right thigh with fat layer exposed (2) Abscess of right thigh: CODE(S): L02.415 - Cutaneous abscess of right lower limb (3) Diabetes mellitus, type II: CODE(S): E11.9 - Type 2 diabetes mellitus without complications QUALIFIERS: Diabetes mellitus custodial insulin use: without custodial use Diabetes mellitus complication status: with other specified complication Qualified Code(s): E11.69 - Type 2 diabetes mellitus with other specified complication (4) Controlled type 2 diabetes mellitus with hyperglycemia: CODE(S): E11.65 - Type 2 diabetes mellitus with hyperglycemia PLAN: Plan Patient evaluated at the wound healing center. Wound care - Aquacel-Ag covered with gauze/ABD daily and as needed. Wash the wound and the darion wound with soap and water at the time of the dressing change. MARIBEL wrap for compression. We will discontinue home health, patient states that she is able to change the dressing without any issues. Completed Doxycycline for positive operative cultures. Follow up one week.
== END 2022-10-31 23:59 | disposition home or self-care (01) ==
LOC: WC 11:00
PROVIDERS: PCP Internal Medicine; Referring Provider Nurse Practitioner Family; Visit Provider Nurse Practitioner Family
DX: E11.622 Type 2 diabetes mellitus with other skin ulcer (principal); L97.112 Non-pressure chronic ulcer of right thigh with fat layer exposed; E11.65 Type 2 diabetes mellitus with hyperglycemia; L03.115 Cellulitis of right lower limb; L02.415 Cutaneous abscess of right lower limb
CPT/HCPCS: 11042

== ENCOUNTER 2022-11-10 09:22 | Outpatient (RCR) | payer MEDICARE, SELFPAY ==
[2022-11-01 01:26] VITALS: BP 151/84; PULSE 96; RESP 20; TEMP 36.8
[2022-11-10 09:27] VITALS: BP 147/83; PULSE 84; RESP 18; TEMP 36.3
--- NOTE | 2022-11-10 11:46 | PCM.WC.PN ---
History of Present Illness Date of Service: 11/10/22 Chief Complaint: Right medial thigh wound History of Wound: 67-year-old female with a history of diabetes mellitus was admitted with a diabetic abscess right medial thigh due to increasing redness, and pain, and swelling. She initially came to the ED on 08/15/22. An ultrasound was done which showed no DVT. She was discharged home. She returned to the ED the next day with a fever. Her WBC was 15.4. She was given a dose of Unasyn and discharged on Keflex. She returned to the ED the next day with continued fever. WBC increased to 17. She was given another dose of Unasyn and admitted. Her antibiotics were later changed to Vancomycin and Zosyn. The redness has improved but is persistent in the right medial thigh. Ultrasound was done which showed hypoechoic subcutaneous collection in area of clinical concern measures 15 x 8 x 4 mm. Subcutaneous soft tissue edema. Multiple lymph nodes, largest measures up to 4.3 cm in long axis. Probable small subcutaneous fluid collection, seroma versus abscess in the area of clinical concern. Surgery 08/20/22 - Surgical preparation right medial thigh with incision and drainage and excisional debridement diabetic abscess (150 cm2). Operative cultures positive for Staphylococcus aureus and she was treated with Doxycycline. Today she denies fever, chills, nausea or vomiting. Progress of Wound: Right medial thigh ulcer is healed today. Objective Data Objective Data Vital Signs: Vital Signs Temp Pulse Resp BP 97.4 F L 84 18 147/83 H 11/10/22 09:27 11/10/22 09:27 11/10/22 09:27 11/10/22 09:27 Charges/Coding Procedures Integumentary [id number]: [id number] Global Visit Physical Exam Const alert, oriented x3 and no apparent distress General Appearance: cooperative HEENT normocephalic Eyes General Eye: normal appearance of both eyes Neck full ROM Resp normal respiratory effort, normal air movement and clear to auscultation bilaterally Effort and Inspection: able to speak in complete sentences Cardio regular rate and regular rhythm Back/Spine normal ROM Extremity full ROM and normal capillary refill Skin Wound Narrative: Right medial thigh ulcer is healed. There is some scar contracture that with time and massage should soften up. Neuro oriented x3 Psych mental status grossly normal and thought process normal Debridement Note Debridement Note No debridement was completed: No debridement was completed today Post-Debridement Measurements and Additional Note: Post-Debridement Measurements/Treatment WILLIS - Nurse 1 - General Ulcer Assessment Start: 11/10/22 09:27 Freq: Status: Active Protocol: VLADIMIR Activity Type Activity Date Activity User E-sign Co-sign Detail Recorded Client Recorded Date Recorded By Document 11/10/22 09:27 DL [id number] 11/10/22 09:33 DL 11/10/22 09:27 WC - Today's Visit Information Type of service Follow-up Visit (Physician/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 Any new allergies or adverse reactions No Had a fall/change in ADL's that may No increase risk of falls Signs or symptoms of abuse and/or No neglect since last visit Have you been in the hospital since your No last visit? Has dressing in place as prescribed Yes Has offloadiing in place as prescribed N/A Experienced any changes in pain level or No management Pain Scale: 0-10 Numeric Is Patient Pain Free? Yes WILLIS - Nurse 1 - General Ulcer Measurement Start: 11/10/22 09:27 Freq: Status: Active Protocol: Activity Type Activity Date Activity User E-sign Co-sign Detail Recorded Client Recorded Date Recorded By Document 11/10/22 09:27 DL [id number] 11/10/22 09:33 DL 11/10/22 09:27 Wound Center Nurse 1 #1 R Thigh -Current Size (cm) - Length 0 -Current Size (cm) - Width 0 -Current Size (cm) - Depth 0 -Total Square Cm 0 -Photo Taken Yes -Exudate Amt None Present -Wound Margin Flat & Intact -Granulation Amt Large (67-100%) -Granulation Quality [place] -Necrosis Amt None Present (0 %) -Structure Exposed N/A -Texture (Shayla-wound Skin Appearance) Scarring -Moisture (Shayla-wound Skin Appearance) Dry/Scaly -Color (Shayla-wound Skin Appearance) No Abnormality -Temperature (Shayla-wound Skin No Abnormality Appearance) (Pt Warm) -Tenderness on Palpation (Shayla-wound No Skin Appearance) -Ulcer Cleansing Rinsed/ Irrigated with Saline -Foul Odor after Cleansing No -Anesthetic Used 5% Lidocaine Gel - Nurse 2 - General Ulcer CM Notes Start: 11/10/22 09:27 Freq: Status: Active Protocol: Activity Type Activity Date Activity User E-sign Co-sign Detail Recorded Client Recorded Date Recorded By Document 11/10/22 09:39 [id number] 11/10/22 09:39 11/10/22 09:39 Wound Center Nurse 2 -Correct Patient No -Correct Side, Site, Position No -Correct Procedure No -Procedure Performed No -Post Debridement (cm) - Length 0 -Post Debridement (cm) - Width 0 -Post Debridement (cm) - Depth 0 -Total Square (Post) (cm) 0 -Area of Debridement (cm) - Length 0 -Area of Debridement (cm) - Width 0 -Total Square (Area) (cm) 0 -Wound/Ulcer Outcome Healed- Epithelialized Pain Scale: 0-10 Numeric Is Patient Pain Free? Yes - Nurse 3 - General Ulcer D/C NN Start: 11/10/22 09:27 Freq: Status: Active Protocol: Activity Type Activity Date Activity User E-sign Co-sign Detail Recorded Client Recorded Date Recorded By Document 11/10/22 09:39 [id number] 11/10/22 09:40 11/10/22 09:39 Is Patient Pain Free? Yes - Visit Discharge Discharge Condition Stable Ambulatory Status Ambulatory Transportation Private Auto Medication Reconcilliation completed & Yes provided to patient/care provider Clinical Summary of Care Provided Yes Notes: patient healed and discharged. Assessment/Plan Assessment/Plan (1) Chronic ulcer of thigh with fat layer exposed: CODE(S): L97.102 - Non-pressure chronic ulcer of unspecified thigh with fat layer exposed QUALIFIERS: Laterality: right Qualified Code(s): L97.112 - Non-pressure chronic ulcer of right thigh with fat layer exposed (2) Abscess of right thigh: CODE(S): L02.415 - Cutaneous abscess of right lower limb (3) Diabetes mellitus, type II: CODE(S): E11.9 - Type 2 diabetes mellitus without complications QUALIFIERS: Diabetes mellitus medical terminologist insulin use: without residential use Diabetes mellitus complication status: with other specified complication Qualified Code(s): E11.69 - Type 2 diabetes mellitus with other specified complication (4) Controlled type 2 diabetes mellitus with hyperglycemia: CODE(S): E11.65 - Type 2 diabetes mellitus with hyperglycemia PLAN: Plan Patient evaluated at the wound healing center. Wound care - Massage the healed ulcer with lotion 1-2 times daily to help soften the scarring and prevent it from drying out. Follow up as needed.
== END 2022-11-10 14:39 | disposition home or self-care (01) ==
LOC: WC 09:22
PROVIDERS: PCP Internal Medicine; Referring Provider Nurse Practitioner Family; Visit Provider Nurse Practitioner Family
DX: Z09 Encounter for follow-up examination after completed treatment for conditions other than malignant neoplasm (principal); E11.65 Type 2 diabetes mellitus with hyperglycemia
CPT/HCPCS: 99212; G0463

== ENCOUNTER 2023-01-05 12:02 | Emergency (ER) | payer MEDICARE, SELFPAY ==
[2023-01-05 12:03] VITALS: BP 160/96; PULSE 73; RESP 16; TEMP 35.5; O2SAT 100; BMI 35.5
--- NOTE | 2023-01-05 12:20 | EX.ED.DYSGE1 ---
HPI <JAM Roth - Last Filed: 01/05/23 15:13> History of Present Illness Chief Complaint: Cellulitis Narrative Narrative: Patient presenting today with cellulitis to her right big toe that she first noticed this morning. She reports that she has a crack in the skin of the dorsal aspect of her big toe that has been there for several weeks. She does have a history of diabetes mellitus and cellulitis of her right thigh in 08/24 that required hospitalization. She denies any fever, chills, abdominal pain, nausea, and vomiting. She reports that her glucose has been in good control recently. PFSH <JAM Roth - Last Filed: 01/05/23 15:13> [facility] Medical History Abnormal EKG Abscess of right thigh Anemia Asthma BPV (benign positional vertigo) Cellulitis of right thigh Depression Diabetes mellitus, type II DVT (deep vein thrombosis) in Edema Elevated liver enzymes Fatty liver GERD (gastroesophageal reflux disease) Hormone imbalance Hot flashes HTN (hypertension) Hypocalcemia Hypothyroidism Hypoxia NAFLD (nonalcoholic fatty liver disease) Obstructive sleep apnea Open wound of right thigh Pneumonia due to COVID-19 virus Pure hypercholesterolemia, unspecified Sciatica Staph infection Syncope Vitamin D deficiency Home Medications fluoxetine 20 mg capsule 40 mg PO QHS antidepressant 06/05/14 [History Last Taken 08/16/22] semaglutide 14 mg tablet (Rybelsus) 14 mg PO DAILY 04/29/22 [History Last Taken 08/17/22] ursodiol 250 mg tablet 250 mg PO BID #180 tabs 07/22/22 [Rx Last Taken 08/16/22] calcium 600 mg capsule 1,200 mg PO DAILY Check with primary doctor 08/17/22 [History Last Taken Unknown] cholecalciferol (vitamin D3) 125 mcg (5,000 unit) tablet (Vitamin D3) 125 mcg PO DAILY SUPPLEMENT 08/17/22 [History Last Taken 08/16/22] levothyroxine 200 mcg tablet 200 mcg PO DAILY THYROID 08/17/22 [History Last Taken 08/17/22] metformin 1,000 mg tablet 1,000 mg PO BID DM 08/17/22 [History Last Taken 08/17/22] vitamin E 670 mg (1,000 unit) capsule 670 mg PO DAILY SUPPLEMENT 08/17/22 [History Last Taken 08/16/22] diazepam 5 mg tablet (Valium) 5 mg PO BID PRN muscle spasm 7 days #14 tabs 08/22/22 [Rx Last Taken Unknown] doxycycline hyclate 100 mg capsule 100 mg PO BID #20 caps 08/22/22 [Rx Last Taken Unknown] hydrocodone-acetaminophen 5-325mg 5mg-325mg 1 tab PO TID PRN pain (scale score 7-10) 7 days #20 tabs 08/22/22 [Rx Last Taken Unknown] gabapentin 100 mg capsule 100 mg PO BID 30 days #60 caps 09/04/22 [Rx Last Taken Unknown] amoxicillin 875 mg-potassium clavulanate 125 mg tablet 1 tab PO BID 7 days #14 tabs 01/05/23 [Rx Last Taken Unknown] Allergy/AdvReac Type Severity Reaction Status Date / Time Acrylic Acid and Acrylates Allergy Other Verified 01/05/23 12:04 [steri-strips (acrylate)] adhesive tape Allergy BLISTERS/SC Verified 01/05/23 12:04 ARS codeine Allergy Shortness Verified 01/05/23 12:04 of breath Sulfa (Sulfonamide Allergy Rash Verified 01/05/23 12:04 Antibiotics) Tetanus Vaccines and Toxoid Allergy Swelling Verified 01/05/23 12:04 [Tetanus Vaccines & Toxoid] meperidine HCl [From Demerol] AdvReac Itching Verified 01/05/23 12:04 oxycodone AdvReac Itching Verified 01/05/23 12:04 Family History Mother Carotid stenosis Hx of CABG Heart disease CHF Father Diabetes Surgical History H/O shoulder surgery History of cholecystectomy History of gastric bypass History of hemiarthroplasty of left shoulder (03/12/18) History of hysterectomy History of tonsillectomy History of umbilical hernia repair Humeral head fracture Status post reverse total shoulder replacement Social History household members: spouse Smoking Status: Never smoker alcohol intake: never substance use type: does not use caffeine: Yes Type: carbonated beverages Number of servings: 3 ROS <JAM Roth - Last Filed: 01/05/23 15:13> ROS ED Constitutional Constitutional ED: Denies chills or fever(s) Cardiovascular Cardiovascular: Denies chest pain Respiratory/Chest Respiratory/Chest: Denies cough or dyspnea Gastrointestinal Gastrointestinal: Denies abdominal pain, nausea or vomiting Musculoskeletal Musculoskeletal: Denies arthralgias or myalgias Integumentary Denies rash Neurologic Neurologic: Denies paresthesias or weakness EXAM <JAM Roth - Last Filed: 01/05/23 15:13> Physical Exam Const Vital Signs: 01/05/23 12:03 01/05/23 12:15 01/05/23 14:14 Temperature 96 F L Temperature Source Temporal Pulse Rate 73 Respiratory Rate 16 16 Respiratory Pattern Normal Blood Pressure 160/96 H Blood Pressure Mean 117 Pulse Ox 100 98 Oxygen Delivery Method Room Air Room Air 01/05/23 14:14 Temperature Temperature Source Pulse Rate 72 Respiratory Rate 16 Respiratory Pattern Blood Pressure 148/70 H Blood Pressure Mean Pulse Ox 100 Oxygen Delivery Method Positive well nourished, well developed and no apparent distress General Appearance ED: well developed HEENT Reports normocephalic and head/scalp atraumatic Mouth ED: Yes moist mucous membranes normal Eyes PERRL and EOMs intact bilaterally Neck full ROM and supple Chest Wall inspection of chest normal Resp normal respiratory effort and clear to auscultation bilaterally Cardio regular rate and regular rhythm GI soft to palpation, non-tender, non-distended and no masses Back/Spine normal ROM and normal to inspection Extremity full ROM Extremity Narrative: Erythema to the right big toe and dorsal aspect of the right foot with lymphangitic streaking up the distal aspect of the right lower leg. There is a fissure to the skin of the right big toe on the dorsal aspect without any purulent discharge. Neuro oriented x3, CN's II-XII intact bilaterally, moves all extremities, no focal motor deficits and no sensory deficits noted Sensorium / Orientation: awake and alert Psych mental status grossly normal and thought process normal Skin no rashes or lesions noted and no wounds <Dr. Theodore Yang MD - Last Filed: 01/05/23 14:22> Physical Exam Const Vital Signs: 01/05/23 12:03 01/05/23 12:15 01/05/23 14:14 Temperature 96 F L Temperature Source Temporal Pulse Rate 73 Respiratory Rate 16 16 Respiratory Pattern Normal Blood Pressure 160/96 H Blood Pressure Mean 117 Pulse Ox 100 98 Oxygen Delivery Method Room Air Room Air 01/05/23 14:14 Temperature Temperature Source Pulse Rate 72 Respiratory Rate 16 Respiratory Pattern Blood Pressure 148/70 H Blood Pressure Mean Pulse Ox 100 Oxygen Delivery Method [facility] <JAM Roth - Last Filed: 01/05/23 15:13> [facility] Narrative Medical decision making narrative: Patient presenting today with concerns for cellulitis to her right big toe. She does have erythema to the right big toe lateral and dorsal aspect of the right foot with lymphangitic streaking up the distal aspect of the right lower leg. She has a history of cellulitis to her right thigh with abscess formation that required hospitalization and surgical intervention in August of this year. She is well-appearing and in no acute distress, vitals are unremarkable, she is afebrile. Labs to be obtained to rule out leukocytosis, anemia, electrolyte abnormality, lactic acid be obtained. She was started on IV Zosyn. Patient does not have leukocytosis, lactic acid WNL. Her cellulitis was demarcated with a marker. She will be started on Augmentin and has been given strict return instructions. She will be discharged home in stable condition and is comfortable with plan. I have personally performed a face to face assessment of the patient and have reviewed the SUJATHA Note. I performed a substantive portion of the visit including all aspects of the following. My garcia findings include: History is remarkable for cellulitis involving the right great toe dorsal distal portion of the foot with lymphangitis. Patient has prior history of cellulitis. She required operative intervention because she became septic. She denies fever, chills night sweats. She not diabetic. She is on no immunosuppressive meds. She does have history of sulfa allergy. She denies penicillin allergy. Exam is cellulitis involving the great toe, dorsum of the foot with lymphangitis past the ankle. This was demarcated with skin pen. There is no popliteal angle lymphadenopathy. She has a scar in the inguinal area due to prior infection/surgery. Medical Decision Making patient with cellulitis. Blood work was obtained to determine if patient is a candidate for outpatient versus inpatient therapy. Other additions or changes: Blood work is unremarkable. She was discharged home with prescription for Augmentin. Lab Data Labs: Laboratory Results - last 24 hr 01/05/23 12:42 WBC 7.5 RBC 4.01 L Hgb 12.3 Hct 37.4 MCV 93.3 MCH 30.7 MCHC 32.9 RDW Std Deviation 49.3 H RDW Coeff of Krista 14.7 H Plt Count 192 MPV 9.3 Immature Gran % (Auto) 0.400 Neut % (Auto) 68.0 Lymph % (Auto) 23.4 Morrow % (Auto) 6.2 Eos % (Auto) 1.6 Baso % (Auto) 0.4 Absolute Neuts (auto) 5.1 Absolute Lymphs (auto) 1.76 Nucleated RBC % 0 Sodium 138 Potassium 4.3 Chloride 105 Carbon Dioxide 28.0 Anion Gap 5 BUN 23 H Creatinine 0.94 Estim Creat Clear Calc 51.52 Est GFR (MDRD) Af Amer 77 Est GFR (MDRD) Non-Af 64 BUN/Creatinine Ratio 24.5 H Glucose 78 Lactic Acid 1.6 Calcium 9.0 <Dr. Theodore Yang MD - Last Filed: 01/05/23 14:22> MDM MDM Narrative Medical decision making narrative: Patient presenting today with concerns for cellulitis to her right big toe. She does have erythema to the right big toe lateral and dorsal aspect of the right foot with lymphangitic streaking up the distal aspect of the right lower leg. She has a history of cellulitis to her right thigh with abscess formation that required hospitalization and surgical intervention in August of this year. She is well-appearing and in no acute distress, vitals are unremarkable, she is afebrile. Labs to be obtained to rule out leukocytosis, anemia, electrolyte abnormality, lactic acid be obtained. She was started on IV Zosyn. I have personally performed a face to face assessment of the patient and have reviewed the SUJATHA Note. I performed a substantive portion of the visit including all aspects of the following. My garcia findings include: History is remarkable for cellulitis involving the right great toe dorsal distal portion of the foot with lymphangitis. Patient has prior history of cellulitis. She required operative intervention because she became septic. She denies fever, chills night sweats. She not diabetic. She is on no immunosuppressive meds. She does have history of sulfa allergy. She denies penicillin allergy. Exam is cellulitis involving the great toe, dorsum of the foot with lymphangitis past the ankle. This was demarcated with skin pen. There is no popliteal angle lymphadenopathy. She has a scar in the inguinal area due to prior infection/surgery. Medical Decision Making patient with cellulitis. Blood work was obtained to determine if patient is a candidate for outpatient versus inpatient therapy. Other additions or changes: Blood work is unremarkable. She was discharged home with prescription for Augmentin. Lab Data Attestation: I reviewed the patient's lab results. Lab results narrative: CBC is unremarkable. Lactate is normal. Electrolyte panel is unremarkable Labs: Laboratory Results - last 24 hr 01/05/23 12:42 WBC 7.5 RBC 4.01 L Hgb 12.3 Hct 37.4 MCV 93.3 MCH 30.7 MCHC 32.9 RDW Std Deviation 49.3 H RDW Coeff of Krista 14.7 H Plt Count 192 MPV 9.3 Immature Gran % (Auto) 0.400 Neut % (Auto) 68.0 Lymph % (Auto) 23.4 [place] % (Auto) 6.2 Eos % (Auto) 1.6 Baso % (Auto) 0.4 Absolute Neuts (auto) 5.1 Absolute Lymphs (auto) 1.76 Nucleated RBC % 0 Sodium 138 Potassium 4.3 Chloride 105 Carbon Dioxide 28.0 Anion Gap 5 BUN 23 H Creatinine 0.94 Estim Creat Clear Calc 51.52 Est GFR (MDRD) Af Amer 77 Est GFR (MDRD) Non-Af 64 BUN/Creatinine Ratio 24.5 H Glucose 78 Lactic Acid 1.6 Calcium 9.0 Discharge Plan Triage Chief Complaint: Cellulitis ED Midlevel Provider: Peg Maria ED Provider: Theodore Yang Dx/Rx/DC Orders Clinical Impression: Cellulitis Instructions: Cellulitis Dc Prescriptions: New amoxicillin-pot clavulanate 875-125 mg tablet 1 tab PO BID 7 Days Qty: 14 0RF No Action Rybelsus 14 mg tablet 14 mg PO DAILY fluoxetine 20 MG capsule 40 mg PO QHS vitamin E 670 mg (1,000 unit) Capsule 670 mg PO DAILY metformin 1,000 mg tablet 1,000 mg PO BID levothyroxine 200 mcg tablet 200 mcg PO DAILY cholecalciferol (vitamin D3) [Vitamin D3] 125 mcg (5,000 unit) Tablet 125 mcg PO DAILY calcium 600 mg Capsule 1,200 mg PO DAILY doxycycline hyclate 100 mg capsule 100 mg PO BID Qty: 20 0RF diazepam [Valium] 5 mg tablet 5 mg PO BID PRN (Reason: muscle spasm) 7 Days Qty: 14 0RF hydrocodone-acetaminophen 5-325 mg tablet 1 tab PO TID PRN (Reason: pain (scale score 7-10)) 7 Days Qty: 20 0RF gabapentin 100 mg capsule 100 mg PO BID 30 Days Qty: 60 0RF ursodiol 250 mg tablet 250 mg PO BID Qty: 180 3RF Primary Care Provider: Diana Martinez Referrals: Diana Martinez DO [Primary Care Provider] - 3-5 Days Activity Restrictions/Additional Instructions: Please return for any worsening of your symptoms. Follow-up with your PCP. Disposition Disposition: Home, Self Care Discharge Date/Time: 01/05/23 14:18
[2023-01-05 12:57] LABS: Absolute Lymphocyte Count 1.76 X10^3/uL (0.83-4.51); Absolute Neutrophil Count 5.1 X10^3/uL (2.0-7.7); Basophil# 0.03 X10^3/uL; Basophil% 0.4 % (0-1); Eosinophil# 0.12 X10^3/uL; Eosinophils% 1.6 % (0-5); Hematocrit 37.4 % (37-47); Hemoglobin 12.3 g/dL (12.0-15.0); Lymphocyte # 1.76 X10^3/ul (0.83-4.51); Lymphocyte % 23.4 % (19-41); Mean Corp Hgb Conc 32.9 g/dL (32-36); Mean Corpuscular Hgb 30.7 pg (27.0-32.0); Mean Corpuscular Volume 93.3 fL (81-99); Mean Platelet Vol. 9.3 fl (6.2-12.0); Monocyte# 0.47 X10^3/uL; Monocyte% 6.2 % (0-10); NRBC Flagged by Analyzer 0 % (0-5); Neutrophil # 5.12 X10^3/uL (2.7-7.7); Platelet Count 192 K/mm3 (150-450); RBC Distribution Width CV 14.7 % (11.6-14.6); RBC Distribution Width SD 49.3 fl (35.1-43.9); Red Blood Count 4.01 M/mm3 (4.2-5.4); White Blood Count 7.5 K/mm3 (4.4-11.0)
[2023-01-05 13:08] LABS: Anion Gap 5 (5-15); BUN 23 mg/dL (7-18); BUN/Creat Ratio 24.5 RATIO (10-20); Chloride 105 mmol/L (98-107); Creatinine, Serum 0.94 mg/dL (0.55-1.02); EST Glomerular Filtration Rate 64 mL/min (>60); Est Glom Filt Rate - Afr Amer 77 mL/min (>60); Estimated Creatinine Clearance 51.52 ml/min; Glucose 78 mg/dL (74-106); Potassium 4.3 mmol/L (3.5-5.1); Sodium Level 138 mmol/L (136-145)
[2023-01-05 13:33] LABS: Lactic Acid 1.6 mmol/L (0.4-1.9)
[2023-01-05 14:14] VITALS: BP 148/70; PULSE 72; RESP 16; O2SAT 100; O2SAT 98
== END 2023-01-05 14:18 | disposition home or self-care (01) ==
PROVIDERS: Physician Assistant; Emergency Provider Emergency Medicine; PCP Internal Medicine; Visit Provider Emergency Medicine
DX: L03.031 Cellulitis of right toe (principal); G47.33 Obstructive sleep apnea (adult) (pediatric); Z86.718 Personal history of other venous thrombosis and embolism; Z86.16 Personal history of COVID-19
CPT/HCPCS: 80048; 83605; 85025; 96365; 99283; A4216

== ENCOUNTER → 2023-12-10 | Outpatient (CLI) | payer MEDICARE, SELFPAY ==
--- NOTE | 2023-12-10 08:35 | RAD_ITS ---
STUDY: X-RAY CHEST REASON FOR EXAM: Female, 68 years old. Shortness of breath. Stent placed in October 2023. Chest pain. TECHNIQUE: Frontal and lateral views of the chest. COMPARISON: July 27, 2022 FINDINGS: The lungs are clear and expanded. There is no demonstrated pleural abnormality. Borderline cardiomegaly unchanged. Normal mediastinum and jw. Normal visualized pulmonary arteries. Mild aortic tortuosity unchanged. Thoracic osteopenia with diffuse moderate thoracic spondylosis. Stable left total shoulder arthroplasty. No abnormality of the visualized soft tissue structures of the upper abdomen. RAD/Chest PA and Lateral IMPRESSION: Stable chest with no acute or active cardiopulmonary disease. Electronically Signed: Hector Busch MD at 15:56 EDT ,
[2023-12-10 08:41] LABS: Absolute Lymphocyte Count 1.35 X10^3/uL (0.83-4.51); Absolute Neutrophil Count 4.9 X10^3/uL (2.0-7.7); Basophil# 0.03 X10^3/uL; Basophil% 0.4 % (0-1); Eosinophil# 0.18 X10^3/uL; Eosinophils% 2.6 % (0-5); Hematocrit 33.2 % (37-47); Hemoglobin 10.9 g/dL (12.0-15.0); Lymphocyte # 1.35 X10^3/ul (0.83-4.51); Lymphocyte % 19.2 % (19-41); Mean Corp Hgb Conc 32.8 g/dL (32-36); Mean Corpuscular Hgb 31.6 pg (27.0-32.0); Mean Corpuscular Volume 96.2 fL (81-99); Mean Platelet Vol. 9.5 fl (6.2-12.0); Monocyte# 0.56 X10^3/uL; NRBC Flagged by Analyzer 0 % (0-5); Neutrophil % 69.5 % (47-70); Platelet Count 196 K/mm3 (150-450); RBC Distribution Width CV 13.5 % (11.6-14.6); Red Blood Count 3.45 M/mm3 (4.2-5.4)
[2023-12-10 09:15] LABS: ALB/GLOB Ratio 0.9 RATIO (0.9-2.4); AST(SGOT) 16 U/L (15-37); Alanine Aminotransfer ALT/SGPT 17 U/L (13-56); Albumin, Serum 2.9 g/dL (3.2-5.0); Alkaline Phosphatase 89 U/L (45-117); Anion Gap 4 (5-15); BUN 19 mg/dL (7-18); BUN/Creat Ratio 19.3 RATIO (10-20); Calcium,Total 8.4 mg/dL (8.5-10.1); Chloride 111 mmol/L (98-107); Creatinine, Serum 0.98 mg/dL (0.55-1.02); EST Glomerular Filtration Rate 60 mL/min (>60); Est Glom Filt Rate - Afr Amer 73 mL/min (>60); Globulin 3.4 g/dL (2.2-4.2); Glucose 98 mg/dL (74-106); Potassium 4.4 mmol/L (3.5-5.1); Protein, Total 6.3 g/dL (6.4-8.2); Sodium Level 142 mmol/L (136-145); Troponin-I HS 9 pg/mL (3.0-54.0)
[2023-12-10 09:34] LABS: BNP,B-Type NATRIURETIC PEPTIDE 288.3 pg/mL (0-100)
== END | disposition home or self-care (01) ==
LOC: LAB 08:19
PROVIDERS: PCP Internal Medicine; Referring Provider Internal Medicine; Visit Provider Internal Medicine
DX: R06.02 Shortness of breath (principal); R94.6 Abnormal results of thyroid function studies
CPT/HCPCS: 36415; 71046; 80053; 83880; 84484; 85025

== ENCOUNTER → 2023-12-16 | Outpatient (CLI) | payer MEDICARE, SELFPAY ==
[2023-12-16 15:23] LABS: Absolute Lymphocyte Count 1.67 X10^3/uL (0.83-4.51); Absolute Neutrophil Count 5.5 X10^3/uL (2.0-7.7); Basophil# 0.03 X10^3/uL; Basophil% 0.4 % (0-1); Eosinophil# 0.24 X10^3/uL; Hematocrit 36.8 % (37-47); Hemoglobin 11.9 g/dL (12.0-15.0); Lymphocyte # 1.67 X10^3/ul (0.83-4.51); Lymphocyte % 20.7 % (19-41); Mean Corp Hgb Conc 32.3 g/dL (32-36); Mean Corpuscular Volume 98.9 fL (81-99); Mean Platelet Vol. 9.5 fl (6.2-12.0); Monocyte# 0.55 X10^3/uL; Monocyte% 6.8 % (0-10); NRBC Flagged by Analyzer 0 % (0-5); Neutrophil # 5.54 X10^3/uL (2.7-7.7); Neutrophil % 68.9 % (47-70); Platelet Count 220 K/mm3 (150-450); RBC Distribution Width CV 13.6 % (11.6-14.6); RBC Distribution Width SD 48.8 fl (35.1-43.9); Red Blood Count 3.72 M/mm3 (4.2-5.4); White Blood Count 8.1 K/mm3 (4.4-11.0)
[2023-12-16 15:37] LABS: BNP,B-Type NATRIURETIC PEPTIDE 333.6 pg/mL (0-100)
[2023-12-16 15:40] LABS: ALB/GLOB Ratio 0.9 RATIO (0.9-2.4); AST(SGOT) 19 U/L (15-37); Alanine Aminotransfer ALT/SGPT 20 U/L (13-56); Albumin, Serum 3.3 g/dL (3.2-5.0); Alkaline Phosphatase 100 U/L (45-117); Anion Gap 6 (5-15); BUN 20 mg/dL (7-18); BUN/Creat Ratio 18.9 RATIO (10-20); Calcium,Total 8.9 mg/dL (8.5-10.1); Chloride 105 mmol/L (98-107); Creatinine, Serum 1.06 mg/dL (0.55-1.02); EST Glomerular Filtration Rate 55 mL/min (>60); Est Glom Filt Rate - Afr Amer 67 mL/min (>60); Globulin 3.5 g/dL (2.2-4.2); Glucose 122 mg/dL (74-106); Potassium 3.9 mmol/L (3.5-5.1); Protein, Total 6.8 g/dL (6.4-8.2); Sodium Level 138 mmol/L (136-145); Troponin-I HS 6 pg/mL (3.0-54.0)
== END | disposition home or self-care (01) ==
LOC: LABSPEC 15:02
PROVIDERS: PCP Internal Medicine; Referring Provider Internal Medicine; Visit Provider Internal Medicine
DX: R06.02 Shortness of breath (principal)
CPT/HCPCS: 80053; 83880; 84484; 85025

== ENCOUNTER → 2024-02-11 | Outpatient (CLI) | payer MEDICARE, SELFPAY ==
[2024-02-11 10:40] LABS: AST(SGOT) 19 U/L (15-37); Alanine Aminotransfer ALT/SGPT 17 U/L (13-56); Albumin, Serum 3.4 g/dL (3.2-5.0); Alkaline Phosphatase 83 U/L (45-117); Bilirubin, Direct 0.18 mg/dL (0.00-0.30); Cholesterol 128 mg/dL (200); Globulin 3.5 g/dL (2.2-4.2); High Density Lipoprotein 59 mg/dL; Protein, Total 6.9 g/dL (6.4-8.2); Triglycerides 95 mg/dL; Very Low Density Lipoprotein 19 mg/dL (5-40)
== END | disposition home or self-care (01) ==
LOC: LAB 09:05
PROVIDERS: PCP Internal Medicine; Referring Provider Internal Medicine Cardiovascular Disease; Visit Provider Internal Medicine Cardiovascular Disease
DX: E78.00 Pure hypercholesterolemia, unspecified (principal); E11.9 Type 2 diabetes mellitus without complications
CPT/HCPCS: 36415; 80061; 80076

== ENCOUNTER → 2024-06-09 | Outpatient (CLI) | payer MEDICARE, SELFPAY ==
--- NOTE | 2024-06-09 15:53 | BD_ITS ---
PROCEDURE: DEXA BONE DENSITY STUDY REASON FOR EXAM: F, age 68 y/o . Patient is postmenopausal.. TECHNIQUE: DEXA scan of the lumbar spine and both hips. COMPARISON: None. FINDINGS: Lumbar Spine (L1-L4): g/cm2 (1.082)/T-score (-0.2)/Z-score (1.8) findings are suggestive of normal with a low fracture risk. Left Femur Total: g/cm2 (0.905)/T-score (-0.3)/Z-score (1.0) Left Femoral Neck: g/cm2 (0.687)/T-score (-1.5)/Z-score (0.1) Right Femur Total: g/cm2 (0.783)/T-score (-1.3)/Z-score (0.0) Right Femoral Neck: g/cm2 (0.589)/T-score (-2.3)/Z-score (-0.7) BD/Dexa Bone Density Study IMPRESSION: OSTEOPENIA. Reading Location: [id number]
== END | disposition home or self-care (01) ==
LOC: OPBD 15:52
PROVIDERS: PCP Internal Medicine; Referring Provider Internal Medicine; Visit Provider Internal Medicine
DX: Z78.0 Asymptomatic menopausal state (principal)
CPT/HCPCS: 77080

== ENCOUNTER 2024-11-14 19:19 | Emergency (ER) | payer MEDICARE, SELFPAY ==
[2024-11-14 19:20] VITALS: BP 151/84; PULSE 64; RESP 18; TEMP 36.8; O2SAT 99; BMI 39.9
--- NOTE | 2024-11-14 20:56 | ED.RN ---
pt had 2 falls in one day on thursday. both were d/t balance, neg for syncope or loc. pt is on plavix and baby aspirin. denies hitting head
[2024-11-14 21:32] VITALS: BP 150/87; PULSE 67; RESP 16; O2SAT 98
--- NOTE | 2024-11-14 22:02 | ED.VIS.FALL ---
HPI HPI - Fall History of Present Illness Chief Complaint: Fall Occured/Mechanism Occurred: Days (3) Mechanism/Context: Yes trip Pain/Injury Location: Right upper extremity and right lower ribs Pain Location: back and upper extremity Quality of Pain: Sharp Worsened by: Movement Relieved by: Rest Associated Symptoms Associated Symptoms: Negative for Parasthesias, Weakness, Loss of function, Inability to ambulate, Loss of consciousness or Amnesia Narrative Narrative: Patient presents after a fall that occurred 2 days ago. Patient states she had 2 falls. Patient states she fell off of the chair and landed on her right lower back area. Patient states that later she tripped and fell forward. Patient states she hit her right arm at that time. Patient states her pain radiates from her right proximal humerus area to her right forearm and hand. Patient describes her pain as sharp. Patient states it is worse with movement. Patient states it is better with rest. Patient denies any head injury or loss of consciousness. Patient admits to some nausea but denies any vomiting. PFSH [facility] Medical History Hypercholesterolemia CAD (coronary atherosclerotic disease) NSTEMI (non-ST elevated myocardial infarction) SOB (shortness of breath) on exertion DVT (deep venous thrombosis) Insomnia Open wound of right thigh Abscess of right thigh Cellulitis of right thigh NAFLD (nonalcoholic fatty liver disease) Hormone imbalance Vitamin D deficiency Anemia Pure hypercholesterolemia, unspecified Depression Hypocalcemia BPV (benign positional vertigo) HTN (hypertension) DVT (deep vein thrombosis) in Asthma GERD (gastroesophageal reflux disease) Sciatica Hot flashes Hypoxia Syncope Edema Elevated liver enzymes Fatty liver Pneumonia due to COVID-19 virus Staph infection Obstructive sleep apnea Hypothyroidism Diabetes mellitus, type II Abnormal EKG Home Medications ?Medication ?Instructions ?Recorded ?Last Taken ?Type calcium 600 mg capsule 1,200 mg PO DAILY Check with 08/17/22 Unknown History primary doctor cholecalciferol (vitamin D3) 125 125 mcg PO DAILY SUPPLEMENT 08/17/22 08/16/22 History mcg (5,000 unit) tablet (Vitamin D3) metformin 1,000 mg tablet 1,000 mg PO BID DM 08/17/22 08/17/22 History vitamin E 670 mg (1,000 unit) 670 mg PO DAILY SUPPLEMENT 08/17/22 08/16/22 History capsule aspirin 81 mg tablet,delayed 81 mg PO DAILY 12/17/23 Unknown History release (Adult Aspirin Regimen) omeprazole 20 mg capsule,delayed 20 mg PO DAILY 12/17/23 Unknown History release atorvastatin 40 mg tablet 40 mg PO DAILY #90 tabs 10/25/24 Unknown Rx clopidogrel 75 mg tablet (Plavix) 75 mg PO QDAY #90 tabs 10/25/24 Unknown Rx fluoxetine 40 mg capsule 40 mg PO QDAY 10/25/24 Unknown History levothyroxine 150 mcg tablet 150 mcg PO QDAY 10/25/24 Unknown History metoprolol succinate 50 mg 50 mg PO DAILY #90 tabs 10/25/24 Unknown Rx tablet,extended release 24 hr ranolazine 500 mg tablet,extended 500 mg PO BID #60 tabs 10/25/24 Unknown Rx release,12 hr semaglutide 7 mg tablet (Rybelsus) 7 mg PO QDAY 10/25/24 Unknown History tramadol 50 mg tablet 50 mg PO Q4H PRN PRN Pain 3 days 11/14/24 Unknown Rx #18 tabs Allergy/AdvReac Type Severity Reaction Status Date / Time Acrylic Acid and Acrylates Allergy Other Verified 11/14/24 20:57 (steri-strips (acrylate)) adhesive tape Allergy BLISTERS/SC Verified 11/14/24 20:57 ARS codeine Allergy Shortness Verified 11/14/24 20:57 of breath Sulfa (Sulfonamide Allergy Rash Verified 11/14/24 20:57 Antibiotics) Tetanus Vaccines and Toxoid Allergy Swelling Verified 11/14/24 20:57 (Tetanus Vaccines & Toxoid) furosemide AdvReac Intermediate Other Verified 11/14/24 20:57 isosorbide AdvReac Intermediate Other Verified 11/14/24 20:57 meperidine HCl (From Demerol) AdvReac Itching Verified 11/14/24 20:57 oxycodone AdvReac Itching Verified 11/14/24 20:57 Family History Mother Carotid stenosis Hx of CABG Heart disease CHF Father Diabetes Lupus Surgical History History of coronary artery stent placement History of cardiac catheterization H/O shoulder surgery Status post reverse total shoulder replacement History of umbilical hernia repair History of cholecystectomy History of gastric bypass History of hysterectomy History of tonsillectomy History of hemiarthroplasty of left shoulder (03/12/18) Humeral head fracture Social History household members: spouse Smoking Status: Never smoker alcohol intake: never substance use type: does not use caffeine: Yes Type: carbonated beverages Number of servings: 3 ROS ROS ED Constitutional Constitutional ED: Denies chills or fever(s) Eyes Eyes: Denies blurry vision or change in vision ENT ENT ED: Denies rhinorrhea or sore throat Cardiovascular Cardiovascular: Denies chest pain or palpitations Respiratory/Chest Respiratory/Chest: Denies cough or dyspnea Gastrointestinal Gastrointestinal: Reports nausea; Denies vomiting Genitourinary Genitourinary ED: Denies dysuria or hematuria Musculoskeletal Musculoskeletal: Reports back pain; Denies neck pain Integumentary Denies abscess or rash Neurologic Neurologic: Denies headache(s) or weakness Allergic/Immunologic Allergic/Immunologic ED: Denies mouth swelling or urticaria EXAM Physical Exam Const Vital Signs: 11/14/24 19:20 11/14/24 20:53 11/14/24 21:32 Temperature 98.3 F Temperature Source Oral Pulse Rate 64 67 Respiratory Rate 18 16 Respiratory Effort Normal Respiratory Depth Normal Respiratory Pattern Normal Blood Pressure 151/84 H 150/87 H Blood Pressure Mean 106 108 Pulse Ox 99 98 Oxygen Delivery Method Room Air Room Air Room Air Positive well nourished and well developed General Appearance ED: well developed and NAD HEENT Reports normocephalic atraumatic Chest Wall Chest Narrative: There is tenderness and ecchymosis over the right lower posterior ribs along the 9th, 10th and 11th ribs. There is no bony crepitance or step-off. There is no subcutaneous emphysema noted. Resp normal respiratory effort and clear to auscultation bilaterally Cardio regular rate and regular rhythm GI non-tender and non-distended Palpation: soft Extremity Extremity Narrative: There is tenderness over the right proximal humerus. There is no deformity noted. There is somewhat limited range of motion in the right shoulder secondary to pain. There is good range of motion of the right elbow and forearm. There is no obvious deformity. Radial pulses are equal bilaterally. Sensation is intact to light touch in the radial, median, and ulnar areas. Strength is 5/5 in the radial, median, and ulnar areas. Neuro oriented x3, CN's II-XII intact bilaterally, moves all extremities, no focal motor deficits and no sensory deficits noted [place] Coma Scale: document GCS findings Spontaneous Obeys Commands Oriented 15 Sensorium / Orientation: alert Motor Exam: strength 5/5 throughout Psych mental status grossly normal MDM MDM MDM Narrative Medical decision making narrative: Differential diagnosis includes proximal humerus fracture, rib fracture, contusion, and sprain. X-rays of the right humerus will be obtained to assess for fracture. X-rays of the right ribs will be obtained to assess for fracture. Radiography Diagnostic Testing: X-rays of the right ribs were obtained. There are 5 views. On my independent interpretation, there is no acute fracture. There is no pneumothorax. There is an elevated right hemidiaphragm. Radiologist also interpreted the x-rays and agrees. X-rays of the right humerus were obtained. There are 2 views. On my independent interpretation, there is no acute fracture. There is no dislocation noted. There is no soft tissue swelling noted. Radiologist also interpreted the x-rays and agrees. Treatment and Re-Evaluation Narrative: Patient was advised of her findings. Patient was given a dose of tramadol here. Patient was given a prescription for a short course of tramadol. Patient was instructed to use ice to the areas. Patient was instructed to follow-up with her primary care physician in 5 to 7 days. Patient understood and was agreeable with the plan. All questions were answered. Discharge Plan Triage Chief Complaint: Fall ED Provider: Bimal De Santiago Dx/Rx/DC Orders Clinical Impression: Contusion of right arm, Contusion of rib on right side, Fall Instructions: ED Contusion, Upper Extremity, ED Bruise, Rib Prescriptions: New tramadol 50 mg tablet 50 mg PO Q4H PRN PRN (Reason: Pain) 3 Days Qty: 18 0RF No Action aspirin [Adult Aspirin Regimen] 81 mg tablet,delayed release (DR/EC) 81 mg PO DAILY omeprazole 20 mg capsule,delayed release(DR/EC) 20 mg PO DAILY levothyroxine 150 mcg tablet 150 mcg PO QDAY Patient Comments: [NO ORIGINAL SIG] fluoxetine 40 mg capsule 40 mg PO QDAY Rybelsus 7 mg tablet 7 mg PO QDAY Patient Comments: [NO ORIGINAL SIG] ranolazine 500 mg tablet extended release 12 hr 500 mg PO BID Qty: 60 11RF clopidogrel [Plavix] 75 mg tablet 75 mg PO QDAY Qty: 90 3RF atorvastatin 40 mg tablet 40 mg PO DAILY Qty: 90 3RF metoprolol succinate 50 mg tablet extended release 24 hr 50 mg PO DAILY Qty: 90 3RF vitamin E 670 mg (1,000 unit) Capsule 670 mg PO DAILY metformin 1,000 mg tablet 1,000 mg PO BID cholecalciferol (vitamin D3) [Vitamin D3] 125 mcg (5,000 unit) Tablet 125 mcg PO DAILY calcium 600 mg Capsule 1,200 mg PO DAILY Primary Care Provider: Diana Martinez Referrals: Diana Martinez DO [Primary Care Provider] - 5-7 Days Print Language: Syriac Disposition Disposition: Home, Self Care
--- NOTE | 2024-11-14 22:20 | RAD_ITS ---
PROCEDURE: RIBS UNI MIN 3V W/PA CHEST 11/14/2024 REASON FOR EXAM: FALL TECHNIQUE: RIBS UNI MIN 3V W/PA CHEST COMPARISON: Chest x-ray 12/10/2023 FINDINGS: Replaced left shoulder joint. Elevated right hemidiaphragm. Normal heart size. No consolidation, effusion or pneumothorax. No right-sided rib fracture noted. Reading Location: [place] [id number]
--- NOTE | 2024-11-14 22:20 | RAD_ITS ---
PROCEDURE: HUMERUS MIN 2 VIEWS 11/14/2024 REASON FOR EXAM: INJURY/PAIN TECHNIQUE: HUMERUS MIN 2 VIEWS COMPARISON: None. FINDINGS: No evidence of acute fracture or dislocation. The soft tissues are unremarkable. RAD/Humerus min 2 Views IMPRESSION: No acute osseous abnormalities. Reading Location: [place] [id number]
[2024-11-14 23:23] VITALS: BP 136/76; PULSE 60; RESP 18; TEMP 36.8; O2SAT 100
== END 2024-11-14 23:25 | disposition home or self-care (01) ==
PROVIDERS: Emergency Provider Emergency Medicine; PCP Internal Medicine; Referring Provider Emergency Medicine; Visit Provider Emergency Medicine
DX: S40.021A Contusion of right upper arm, initial encounter (principal); E11.9 Type 2 diabetes mellitus without complications; I25.10 Atherosclerotic heart disease of native coronary artery without angina pectoris; S20.211A Contusion of right front wall of thorax, initial encounter; I25.2 Old myocardial infarction; W07.XXXA Fall from chair, initial encounter; Z86.718 Personal history of other venous thrombosis and embolism; Z86.16 Personal history of COVID-19
CPT/HCPCS: 71101; 73060; 99282

== ENCOUNTER 2024-11-16 06:04 | Emergency (ER) | payer MEDICARE, SELFPAY ==
[2024-11-16 06:06] VITALS: BP 204/88; PULSE 62; RESP 18; TEMP 36.6; O2SAT 100; BMI 40.3
--- NOTE | 2024-11-16 06:45 | RAD_ITS ---
PROCEDURE: WRIST MIN 3 VIEWS 11/16/2024 REASON FOR EXAM: PAIN TECHNIQUE: WRIST MIN 3 VIEWS COMPARISON: August 05, 2020 FINDINGS: There is no fracture or dislocation. There is mild osteoarthritis of the radiocarpal articulation. Vascular calcifications are visible. Mineralization is normal. RAD/Wrist min 3 Views IMPRESSION: No fracture or dislocation is identified. Reading Location: [place]
--- NOTE | 2024-11-16 06:45 | RAD_ITS ---
PROCEDURE: WRIST MIN 3 VIEWS 11/16/2024 REASON FOR EXAM: PAIN TECHNIQUE: WRIST MIN 3 VIEWS COMPARISON: August 05, 2020 FINDINGS: There is no fracture or dislocation. There is mild osteoarthritis of the radiocarpal articulation. Vascular calcifications are visible. Mineralization is normal. RAD/Wrist min 3 Views IMPRESSION: No fracture or dislocation is identified. Reading Location: [place]
--- NOTE | 2024-11-16 07:00 | RAD_ITS ---
PROCEDURE: ELBOW MIN 3 VIEWS 11/16/2024 REASON FOR EXAM: PAIN TECHNIQUE: ELBOW MIN 3 VIEWS COMPARISON: None FINDINGS: There is osteoarthritis at the radiocapitellar articulation. No acute fracture or dislocation is seen. There is no visible effusion. There is no soft tissue abnormality or atherosclerosis identified. RAD/Elbow min 3 Views IMPRESSION: No acute fracture or dislocation is identified. Reading Location: [place]
--- NOTE | 2024-11-16 07:00 | RAD_ITS ---
PROCEDURE: ELBOW MIN 3 VIEWS 11/16/2024 REASON FOR EXAM: PAIN TECHNIQUE: ELBOW MIN 3 VIEWS COMPARISON: None FINDINGS: There is osteoarthritis at the radiocapitellar articulation. No acute fracture or dislocation is seen. There is no visible effusion. There is no soft tissue abnormality or atherosclerosis identified. RAD/Elbow min 3 Views IMPRESSION: No acute fracture or dislocation is identified. Reading Location: [place]
--- NOTE | 2024-11-16 07:48 | EX.ED.UPPERE ---
HPI History of Present Illness Chief Complaint: Upper Extremity Injury Informant: patient Narrative Narrative: Patient is a 69-year-old female who has a past medical history of hypertension hyperlipidemia noncemented type 2 diabetes and hypothyroidism. She was seen the other day after a mechanical fall where she landed on her right side and injured her right ribs. At that time she had a rib series x-ray as well as humerus x-ray which revealed no acute finding. Patient states that there has been no repeat trauma but she now has pain and swelling essentially from the elbow down to the wrist and there is bruising to her forearm. She states she is on Plavix but denies any true blood thinner. With the new area of bruising/swelling and pain she is concerned that a fracture may have been missed and therefore comes in for evaluation [facility] Medical History Hypercholesterolemia CAD (coronary atherosclerotic disease) NSTEMI (non-ST elevated myocardial infarction) SOB (shortness of breath) on exertion DVT (deep venous thrombosis) Insomnia Open wound of right thigh Abscess of right thigh Cellulitis of right thigh NAFLD (nonalcoholic fatty liver disease) Hormone imbalance Vitamin D deficiency Anemia Pure hypercholesterolemia, unspecified Depression Hypocalcemia BPV (benign positional vertigo) HTN (hypertension) DVT (deep vein thrombosis) in Asthma GERD (gastroesophageal reflux disease) Sciatica Hot flashes Hypoxia Syncope Edema Elevated liver enzymes Fatty liver Pneumonia due to COVID-19 virus Staph infection Obstructive sleep apnea Hypothyroidism Diabetes mellitus, type II Abnormal EKG Home Medications ?Medication ?Instructions ?Recorded ?Last Taken ?Type calcium 600 mg capsule 1,200 mg PO DAILY Check with 08/17/22 Unknown History primary doctor cholecalciferol (vitamin D3) 125 125 mcg PO DAILY SUPPLEMENT 08/17/22 08/16/22 History mcg (5,000 unit) tablet (Vitamin D3) metformin 1,000 mg tablet 1,000 mg PO BID DM 08/17/22 08/17/22 History vitamin E 670 mg (1,000 unit) 670 mg PO DAILY SUPPLEMENT 08/17/22 08/16/22 History capsule aspirin 81 mg tablet,delayed 81 mg PO DAILY 12/17/23 Unknown History release (Adult Aspirin Regimen) omeprazole 20 mg capsule,delayed 20 mg PO DAILY 12/17/23 Unknown History release atorvastatin 40 mg tablet 40 mg PO DAILY #90 tabs 10/25/24 Unknown Rx clopidogrel 75 mg tablet (Plavix) 75 mg PO QDAY #90 tabs 10/25/24 Unknown Rx fluoxetine 40 mg capsule 40 mg PO QDAY 10/25/24 Unknown History levothyroxine 150 mcg tablet 150 mcg PO QDAY 10/25/24 Unknown History metoprolol succinate 50 mg 50 mg PO DAILY #90 tabs 10/25/24 Unknown Rx tablet,extended release 24 hr ranolazine 500 mg tablet,extended 500 mg PO BID #60 tabs 10/25/24 Unknown Rx release,12 hr semaglutide 7 mg tablet (Rybelsus) 7 mg PO QDAY 10/25/24 Unknown History tramadol 50 mg tablet 50 mg PO Q4H PRN PRN Pain 3 days 11/14/24 Unknown Rx #18 tabs oxycodone-acetaminophen 5 mg-325 1 tab PO Q6H PRN pain 3 days #12 11/16/24 Unknown Rx mg tablet (Percocet) tabs Allergy/AdvReac Type Severity Reaction Status Date / Time Acrylic Acid and Acrylates Allergy Other Verified 11/16/24 06:06 (steri-strips (acrylate)) adhesive tape Allergy BLISTERS/SC Verified 11/16/24 06:06 ARS codeine Allergy Shortness Verified 11/16/24 06:06 of breath Sulfa (Sulfonamide Allergy Rash Verified 11/16/24 06:06 Antibiotics) Tetanus Vaccines and Toxoid Allergy Swelling Verified 11/16/24 06:06 (Tetanus Vaccines & Toxoid) furosemide AdvReac Intermediate Other Verified 11/16/24 06:06 isosorbide AdvReac Intermediate Other Verified 11/16/24 06:06 meperidine HCl (From Demerol) AdvReac Itching Verified 11/16/24 06:06 oxycodone AdvReac Itching Verified 11/16/24 06:06 Family History Mother Carotid stenosis Hx of CABG Heart disease CHF Father Diabetes Lupus Surgical History History of coronary artery stent placement History of cardiac catheterization H/O shoulder surgery Status post reverse total shoulder replacement History of umbilical hernia repair History of cholecystectomy History of gastric bypass History of hysterectomy History of tonsillectomy History of hemiarthroplasty of left shoulder (03/12/18) Humeral head fracture Social History household members: spouse Smoking Status: Never smoker alcohol intake: never substance use type: does not use caffeine: Yes Type: carbonated beverages Number of servings: 3 ROS ROS ED Constitutional Constitutional ED: Denies chills or fever(s) Eyes Eyes: Denies blurry vision or change in vision ENT ENT ED: Denies sore throat Cardiovascular Cardiovascular: Denies chest pain Respiratory/Chest Respiratory/Chest: Denies cough or dyspnea Gastrointestinal Gastrointestinal: Denies abdominal pain, diarrhea, nausea or vomiting Musculoskeletal Musculoskeletal: Reports other Details: Positive right elbow and forearm pain and swelling Integumentary Reports Abrasions and other Details: Positive bruising right forearm Neurologic Neurologic: Denies headache(s), paresthesias or weakness Hematologic/Lymphatic Hematologic/Lymphatic: Reports easy bleeding and easy bruising EXAM Physical Exam Const Vital Signs: 11/16/24 06:06 Temperature 97.8 F Temperature Source Oral Pulse Rate 62 Respiratory Rate 18 Blood Pressure 204/88 H Blood Pressure Mean 126 Pulse Ox 100 Oxygen Delivery Method Room Air Positive well nourished, well developed and obese General Appearance ED: well developed Nutritional Appearance: obese HEENT HEENT Narrative: Normocephalic atraumatic Eyes PERRL and EOMs intact bilaterally Neck full ROM and supple Resp normal respiratory effort and clear to auscultation bilaterally Cardio regular rate and regular rhythm Extremity Extremity Narrative: Right upper extremity is neurovascularly intact; AIN/PIN are intact normal Patient has soft tissue swelling and ecchymosis to the dorsal aspect of the right forearm mainly along the proximal to middle third portion. All compartments are soft and compressible going against compartment syndrome There is no obvious bony deformity or joint effusion. There is pain on palpation diffusely across the right wrist without localized anatomical snuffbox tenderness There is pain with palpation along the right olecranon process without joint effusion Patient still has full active range of motion Neuro oriented x3, CN's II-XII intact bilaterally, moves all extremities, no focal motor deficits and no sensory deficits noted Sensorium / Orientation: alert Motor Exam: strength 5/5 throughout Psych mental status grossly normal Skin Skin Narrative: Soft tissue swelling and ecchymosis to the proximal middle third dorsal aspect of the forearm as documented above without secondary findings of infection MDM MDM MDM Narrative Medical decision making narrative: Patient arrived to the ER hypertensive but has a past medical medical history of this. She denies any repeat trauma but now has bruising and pain essentially from the elbow to the wrist. Previous chart was reviewed and she had imaging of her ribs and right humerus but no evaluation of the elbow and wrist. Therefore elected to perform x-rays of these region. X-ray revealed no acute pathology indicating patient has a contusion and hematoma. As she is neurovascularly intact without signs of compartment syndrome there is no need for further intervention and she is otherwise safe for discharge. History & Record Review Discussion w/independent historian: Patient Radiography Diagnostic Testing: Clinical Impression(s) from Imaging Studies Wrist X-Ray 11/16/24 06:45 IMPRESSION: No fracture or dislocation is identified. Reading Location: [facility] Elbow X-Ray 11/16/24 07:00 IMPRESSION: No acute fracture or dislocation is identified. Reading Location: [facility] X-ray of the right elbow as interpreted by the emergency medicine physician reveals no acute fracture dislocation or joint effusion X-ray of the right wrist as interpreted by the emergency medicine physician reveals no acute fracture dislocation or joint effusion Discharge Plan Triage Chief Complaint: Upper Extremity Injury ED Provider: Elmo Gallardo Dx/Rx/DC Orders Clinical Impression: Contusion of arm, right, Hematoma of right forearm, HTN (hypertension), Hypercholesterolemia, Diabetes mellitus, type II Instructions: Bone Contusion, ED Hematoma Prescriptions: New oxycodone-acetaminophen [Percocet] 5-325 mg tablet 1 tab PO Q6H PRN (Reason: pain) 3 Days Qty: 12 0RF No Action aspirin [Adult Aspirin Regimen] 81 mg tablet,delayed release (DR/EC) 81 mg PO DAILY omeprazole 20 mg capsule,delayed release(DR/EC) 20 mg PO DAILY levothyroxine 150 mcg tablet 150 mcg PO QDAY Patient Comments: [NO ORIGINAL SIG] fluoxetine 40 mg capsule 40 mg PO QDAY Rybelsus 7 mg tablet 7 mg PO QDAY Patient Comments: [NO ORIGINAL SIG] ranolazine 500 mg tablet extended release 12 hr 500 mg PO BID Qty: 60 11RF clopidogrel [Plavix] 75 mg tablet 75 mg PO QDAY Qty: 90 3RF atorvastatin 40 mg tablet 40 mg PO DAILY Qty: 90 3RF metoprolol succinate 50 mg tablet extended release 24 hr 50 mg PO DAILY Qty: 90 3RF vitamin E 670 mg (1,000 unit) Capsule 670 mg PO DAILY metformin 1,000 mg tablet 1,000 mg PO BID cholecalciferol (vitamin D3) [Vitamin D3] 125 mcg (5,000 unit) Tablet 125 mcg PO DAILY calcium 600 mg Capsule 1,200 mg PO DAILY tramadol 50 mg tablet 50 mg PO Q4H PRN PRN (Reason: Pain) 3 Days Qty: 18 0RF Primary Care Provider: Diana Martinez Referrals: Diana Martinez DO [Primary Care Provider] - Activity Restrictions/Additional Instructions: Your x-rays today did not show any new fracture or dislocation indicating you have a hematoma/blood underneath your skin as well as bruising to your bone. Continue to ice the area to help reduce pain and speed healing. Stop the tramadol that was prescribed at your last visit as it is not helping with pain and begin taking the Percocet as directed. Return to the ER should you have any further concerns Print Language: Armenian Disposition Disposition: Home, Self Care Discharge Date/Time: 11/16/24 08:01
[2024-11-16 07:54] VITALS: BP 185/81; PULSE 61; RESP 18; TEMP 36.2; O2SAT 97
== END 2024-11-16 08:01 | disposition home or self-care (01) ==
PROVIDERS: Emergency Provider Emergency Medicine; PCP Internal Medicine; Visit Provider Emergency Medicine
DX: S40.021A Contusion of right upper arm, initial encounter (principal); E11.9 Type 2 diabetes mellitus without complications; I25.10 Atherosclerotic heart disease of native coronary artery without angina pectoris; E78.00 Pure hypercholesterolemia, unspecified; I25.2 Old myocardial infarction; E66.9 Obesity, unspecified; Z86.16 Personal history of COVID-19; Z86.718 Personal history of other venous thrombosis and embolism; Z95.5 Presence of coronary angioplasty implant and graft; W19.XXXA Unspecified fall, initial encounter
CPT/HCPCS: 73080; 73110; 99282; A4216

== ENCOUNTER → 2025-02-01 | Outpatient (CLI) | payer MEDICARE, SELFPAY | END | disposition home or self-care (01) | LOC: CVS 07:06 | PROVIDERS: PCP Internal Medicine; Referring Provider Physician Assistant Medical; Visit Provider Physician Assistant Medical | DX: R06.02 Shortness of breath (principal); Z95.5 Presence of coronary angioplasty implant and graft | CPT/HCPCS: 78452; 93017; A9500; A4216; J2785 ==

== ENCOUNTER → 2025-02-24 | Outpatient (CLI) | payer MEDICARE, SELFPAY ==
[2025-02-24 11:50] LABS: Hematocrit 35.7 % (37-47); Hemoglobin 12.3 g/dL (12.0-15.0); Immature Granulocytes Count 0.020 X10^3/uL (0.0-0.0); Mean Corp Hgb Conc 34.5 g/dL (32-36); Mean Corpuscular Volume 93.0 fL (81-99); Mean Platelet Vol. 10.2 fl (6.2-12.0); NRBC Flagged by Analyzer 0 % (0-5); Platelet Count 211 K/mm3 (150-450); RBC Distribution Width CV 14.1 % (11.6-14.6); RBC Distribution Width SD 47.8 fl (35.1-43.9); Red Blood Count 3.84 M/mm3 (4.2-5.4); White Blood Count 8.5 K/mm3 (4.4-11.0)
[2025-02-24 11:54] LABS: Color, Urine Yellow (Yellow); Glucose, Dipstick Normal (Normal); Ketone-Dipstick 5 mg/dl (Negative); Leukocyte Esterase-Dipstick 500 /ul (Negative); Nitrite-Dipstick Negative (Negative); Occult Blood-Urine 25 /ul (Negative); Protein-Dipstick 100 mg/dl (Negative); Specific Gravity, Urine 1.025 (1.002-1.030); Urine Bilirubin Dipstick 1 mg/dL (Negative)
[2025-02-24 12:15] LABS: Calcium Oxalate Crystals Ur RARE /hpf (<or=2+); Mucous, Urine 1+ /hpf (<or=2+)
[2025-02-24 12:16] LABS: Red Blood Cells-Urine 0-5 SEEN /hpf (0-5); Squamous Epithelial Cells - UA 5-10 SEEN /hpf (5-10)
[2025-02-24 12:59] LABS: AST(SGOT) 19 U/L (<=31); Alanine Aminotransfer ALT/SGPT 10 U/L (<=34); Albumin, Serum 3.7 g/dL (3.4-4.8); Alkaline Phosphatase 111 U/L (35-104); Anion Gap 11 (5-15); BUN 14 mg/dL (4-19); BUN/Creat Ratio 12.5 RATIO (10-20); Calcium,Total 9.0 mg/dL (7.6-11.0); Carbon Dioxide 25.5 mmol/L (21.0-32.0); Chloride 104 mmol/L (98-108); Cholesterol 117 mg/dL (<=200); Globulin 2.7 g/dL (2.2-4.2); Glucose 103 mg/dL (70-99); Low Density Lipoprotein Calc. 58 mg/dL; Potassium 4.0 mmol/L (3.3-5.1); Triglycerides 73 mg/dL; Very Low Density Lipoprotein 15 mg/dL (5-40); Vitamin D,25 Hydroxy 63.0 ng/mL (30-100); cholesterol:hdl ratio screen 2.65
[2025-02-24 14:00] LABS: Creatinine, Urine (random) 408.00 mg/dL (28.00-217.00); Microalbumin,Random Urine 209.0 mg/L (<20 mg/L)
== END | disposition home or self-care (01) ==
LOC: LAB 10:17
PROVIDERS: PCP Internal Medicine; Referring Provider Internal Medicine; Visit Provider Internal Medicine
DX: E78.00 Pure hypercholesterolemia, unspecified (principal); E11.9 Type 2 diabetes mellitus without complications; E55.9 Vitamin D deficiency, unspecified; E03.9 Hypothyroidism, unspecified
CPT/HCPCS: 36415; 80053; 80061; 81001; 82043; 82306; 82570; 84443; 85025